=== PATIENT | female | born 1995 | race Caucasian/White ===

== ENCOUNTER 2024-04-03 10:28 | Emergency (ER) | payer OTHER, SELFPAY ==
[2024-04-03 10:32] VITALS: BP 164/92; PULSE 80; TEMP 37.1; O2SAT 97
--- NOTE | 2024-04-03 10:49 | CT_ITS ---
The [address] [address] Patient Name: SUSSY CRANE MRN: [id number] date: 1995 Sex: F Assigned Patient Location: ED.MAIN Current Patient Location: ED.MAIN Accession/Order Number: [id number] Exam Date: 04/03/2024 10:56 Report Date: 04/03/2024 11:27 At the request of: ZANIA CORONA Procedure: CT int auditory canals w/o con EXAM: CT int auditory canals w/o con HISTORY: L mastoid pain COMPARISON: None. TECHNIQUE: Axial noncontrast CT imaging of the temporal bones was performed with coronal reformats. This CT exam was performed using one or more of the following dose reduction techniques: Automated exposure control, adjustment of the MA and/or kV according to patient size, or use of iterative reconstruction technique. FINDINGS: RIGHT SIDE External auditory canal is clear. Mastoid air cells are normally aerated. Tympanic membrane has normal appearance. Middle ear cavity is normally aerated. Ossicles appear normal. No bony erosion. Internal auditory canal, cochlea, vestibule, semicircular canals, vestibular and cochlear aqueducts appear normal. Normal appearance of the petrous course of the facial nerve. No evidence of aberrant carotid or jugular dehiscence. LEFT SIDE Narrowing of the left external auditory canal greater involving the osseous external auditory canal and greater superiorly secondary to soft tissue thickening. Mild thickening and retraction of the tympanic membrane. Partial opacification of the mesotympanum and Prussak space without ossicular erosive change or blunting of the scutum. Mastoid air cells are normally aerated. Internal auditory canal, cochlea, vestibule, semicircular canals, vestibular and cochlear aqueducts appear normal. Normal appearance of the petrous course of the facial nerve. No evidence of aberrant carotid or jugular dehiscence. Additional comments: Visualized portion of the intracranial structures are unremarkable. CT/CT int auditory canals w/o con IMPRESSION: 1. Findings concerning for sequela of otitis externa with mild thickening and retraction of the tympanic membrane and partial opacification of the mesotympanum and Prussak space without obvious erosive change to suggest definite cholesteatoma. No evidence for mastoiditis. 2. Unremarkable CT appearance of the right temporal bone. Electronically authenticated by: LARRY YANES Date: 04/03/2024 11:27
--- NOTE | 2024-04-03 10:52 | ED_ITS ---
HPI HPI - General Adult General Chief complaint: Ear Stated complaint: EAR INFECTION AND LOCK JAW Time Seen by Provider: 04/03/24 10:32 Source: patient Mode of arrival: walk-in Limitations: no limitations History of Present Illness HPI narrative: Patient presents to ED complaining of ear pain. She reports left ear pain has been there about a week. She went to an urgent care and she was started on Augmentin on Monday. She states her ear has been getting worse and not better. She now has pain into the jaw and behind the ear as well as up into the temporal bone. She does have a history of fibromyalgia. She states she went to [place] over the weekend but did not notice any acute ear pain then. No recent history of swimming. No nausea vomiting no fevers. She does report that she has some pain with clenching the jaw and opening the jaw. No other complaints at this time Related Data Previous Rx's ?Medication ?Instructions ?Recorded ciprofloxacin 0.3 %-dexamethasone 4 drp otic (ear) BID 7 days #7.5 mL 04/03/24 0.1 % ear drops,suspension Allergies Allergy/AdvReac Type Severity Reaction Status Date / Time No Known Drug Allergies Allergy Verified 04/03/24 10:36 Opioid HPI Opioid Management Most Recent Opioid Data: Last Pain Scale 8 04/03/24 11:50 04/03/24 Last MAR Pain Assessment 04/03/24 11:50 Review of Systems ROS Status of ROS 10 or more systems reviewed and unremark able except as noted in history and below PFSH PFSH Surgical History (Updated 04/03/24 @ 10:38 by Chaz Abad) History of shoulder surgery ?Z98.890 - Other specified postprocedural states (ICD-10) Hx of cholecystectomy ?Z90.49 - Acquired absence of other specified parts of digestive tract (ICD- 10) Hx of hysterectomy ?Z90.710 - Acquired absence of both cervix and uterus (ICD-10) Social History Little interest or pleasure in doing things: not at all Feeling down, depressed, or hopeless: not at all Exam Narrative Exam Narrative: General: alert, no acute distress Cardiovascular: regular rate and rhythm, normal peripheral perfusion. Respiratory: Lungs CTA, respirations non labored. Extremities: no deformity, no trauma. Neurological: oriented x 4, LOC appropriate for age. Tenderness to palpation in the mastoid on the left as well as in the temporal bone and tenderness with movement of the pinna. Mild swelling of the canal and mild erythema of the left TM. No trismus Constitutional Vital Signs, click to edit/add: Last Vital Signs Temp 98.7 F 04/03/24 10:32 Pulse 80 04/03/24 10:32 Resp 16 04/03/24 10:32 BP 164/92 H 04/03/24 10:32 Pulse Ox 97 04/03/24 10:32 Course Vital Signs Vital signs: Vital Signs Temperature 98.7 F 04/03/24 10:32 Pulse Rate 80 04/03/24 10:32 Respiratory Rate 16 04/03/24 10:32 Blood Pressure 164/92 H 04/03/24 10:32 Pulse Oximetry 97 04/03/24 10:32 Temperature 98.7 F 04/03/24 10:32 Pulse Rate 80 04/03/24 10:32 Respiratory Rate 16 04/03/24 10:32 Blood Pressure 164/92 H 04/03/24 10:32 Pulse Oximetry 97 04/03/24 10:[address] [facility] Narrative Medical decision making narrative: Patient CT scan does not show acute mastoiditis. It is indicative of otitis externa. I will place the patient on Ciprodex antibiotic drops with steroids and it which should help the swelling and infection. Please return to ED if worsening symptoms continue the Augmentin otherwise follow-up with family doctor. Patient is comfortable care plan for home. Differential Diagnosis Differential Diagnosis: Otitis externa otitis media mastoiditis Imaging Data CT scan - head: Radiologist's impression: ITS Impressions Internal Auditory Canal CT 04/03/24 10:49 IMPRESSION: 1. Findings concerning for sequela of otitis externa with mild thickening and retraction of the tympanic membrane and partial opacification of the mesotympanum and Prussak space without obvious erosive change to suggest definite cholesteatoma. No evidence for mastoiditis. 2. Unremarkable CT appearance of the right temporal bone. Electronically authenticated by: LARRY YANES Date: 04/03/2024 11:27 Discharge Plan Discharge Chief Complaint: Ear Clinical Impression: Otitis externa Patient Disposition: Home, Self-Care Time of Disposition Decision: 11:45 Condition: Good Mode of Transportation: Private Vehicle Prescriptions / Home Meds: New ciprofloxacin-dexamethasone 0.3-0.1 % drops,suspension 4 drp otic (ear) BID 7 Days Qty: 7.5 0RF Rx Instructions: Please call Dr. Camejo at [place] [facility] if this is too expensive to find alte rnative. thanks! Print Language: Azerbaijani Instructions: [facility] (ED) Referrals: Physician,Non-Staff, MD [Primary Care Provider] - 1 week Discharge Date/Time: 04/03/24 11:57
[2024-04-03] MEDS: HYDROCODONE/ACET 5-325 MG TABLET 1 TAB PO (11:50)
== END 2024-04-03 11:57 | disposition home or self-care (01) ==
PROVIDERS: Emergency Provider Emergency Medicine
DX: H60.92 Unspecified otitis externa, left ear (principal)
CPT/HCPCS: 70480; 99284

== ENCOUNTER 2024-05-14 08:42 | Emergency (ER) | payer OTHER, SELFPAY ==
[2024-05-14 08:47] VITALS: BP 141/83; PULSE 78; TEMP 36.8; O2SAT 98
--- NOTE | 2024-05-14 09:00 | ED_ITS ---
HPI HPI - General Adult General Chief complaint: Ear Stated complaint: EAR ISSUE Time Seen by Provider: 05/14/24 08:48 Source: patient Mode of arrival: walk-in Limitations: no limitations History of Present Illness HPI narrative: 29-year-old female presents for pressure in her ears and the feeling that her lymph nodes are enlarged. She states she is getting over a cold. She had nasal congestion but that is improved. No ear drainage and she does not complain of a sore throat or fever or cough. Related Data Home Medications ?Medication ?Instructions ?Recorded ?Confirmed no home meds 05/14/24 Previous Rx's ?Medication ?Instructions ?Recorded ciprofloxacin 0.3 %-dexamethasone 4 drp otic (ear) BID 7 days #7.5 mL 04/03/24 0.1 % ear drops,suspension cetirizine 5 mg-pseudoephedrine ER 1 tab PO BID #14 tabs 05/14/24 120 mg tablet,extended release,12hr (Zyrtec-D) ibuprofen 800 mg tablet 800 mg PO Q8H PRN pain #20 tabs 05/14/24 Allergies Allergy/AdvReac Type Severity Reaction Status Date / Time No Known Drug Allergies Allergy Verified 05/14/24 08:52 Opioid HPI Opioid Management Most Recent Opioid Data: Last Pain Scale 8 04/03/24 11:50 04/03/24 Review of Systems ROS Narrative A ten point review of systems is negative except as noted above. PFSH PFSH Surgical History (Updated 04/03/24 @ 10:38 by Chaz Abad) History of shoulder surgery ?Z98.890 - Other specified postprocedural states (ICD-10) Hx of cholecystectomy ?Z90.49 - Acquired absence of other specified parts of digestive tract (ICD- 10) Hx of hysterectomy ?Z90.710 - Acquired absence of both cervix and uterus (ICD-10) Social History Little interest or pleasure in doing things: not at all Feeling down, depressed, or hopeless: not at all Exam Narrative Exam Narrative: Nurses note and vital signs reviewed and patient is not hypoxic. General: The patient appears well and in no apparent distress. Patient is resting comfortably on cart. Skin: Warm, dry, no pallor noted. There is no rash noted. Head: Normocephalic, atraumatic Eye: Normal conjunctiva, no drainage Ears, Nose, Mouth, and Throat: oral mucosa is moist. Nares patent. No pharyngea l erythema or exudate or swelling. Both TMs and both external canals are normal. I do not appreciate any enlarged lymph nodes in the cervical region. Cardiovascular: Regular Rate and Rhythm Respiratory: Patient is in no distress, no accessory muscle use, lungs are clear to auscultation, no wheezing, rales or rhonchi Back: non-tender GI: Soft and nontender Musculoskeletal: The patient has no evidence of calf tenderness, no pitting edema, symmetrical pulses noted bilaterally Neurological: A&O, normal speech Psychiatric: Cooperative Constitutional Vital Signs, click to edit/add: Last Vital Signs Temp 98.3 F 05/14/24 08:47 Pulse 78 05/14/24 08:47 Resp 18 05/14/24 08:47 BP 141/83 05/14/24 08:47 Pulse Ox 98 05/14/24 08:47 O2 Del Method Room Air 05/14/24 08:47 Course Vital Signs Vital signs: Vital Signs Temperature 98.3 F 05/14/24 08:47 Pulse Rate 78 05/14/24 08:47 Respiratory Rate 18 05/14/24 08:47 Blood Pressure 141/83 05/14/24 08:47 Pulse Oximetry 98 05/14/24 08:47 Oxygen Delivery Method Room Air 05/14/24 08:47 Temperature 98.3 F 05/14/24 08:47 Pulse Rate 78 05/14/24 08:47 Respiratory Rate 18 05/14/24 08:47 Blood Pressure 141/83 05/14/24 08:47 Pulse Oximetry 98 05/14/24 08:47 Oxygen Delivery Method Room Air 05/14/24 08:47 Discharge Plan Discharge Chief Complaint: Ear Clinical Impression: Viral URI Patient Disposition: Home, Self-Care Time of Disposition Decision: 08:59 Condition: Good Mode of Transportation: Private Vehicle Prescriptions / Home Meds: New ibuprofen 800 mg tablet 800 mg PO Q8H PRN (Reason: pain) Qty: 20 0RF cetirizine-pseudoephedrine [Zyrtec-D] 5-120 mg tablet extended release 12 hr 1 tab PO BID Qty: 14 0RF No Action no home meds ciprofloxacin-dexamethasone 0.3-0.1 % drops,suspension 4 drp otic (ear) BID 7 Days Qty: 7.5 0RF Rx Instructions: Please call Dr. Camejo at [place] [facility] if this is too expensive to find alternative. thanks! Print Language: Panamanian Instructions: Upper Respiratory Infection (ED), Viral Syndrome (ED) Referrals: Physician,Non-Staff, MD [Primary Care Provider] - 1 week
== END 2024-05-14 09:12 | disposition home or self-care (01) ==
PROVIDERS: Emergency Provider Emergency Medicine
DX: J06.9 Acute upper respiratory infection, unspecified (principal); Z90.49 Acquired absence of other specified parts of digestive tract; Z90.710 Acquired absence of both cervix and uterus
CPT/HCPCS: 99283

== ENCOUNTER 2024-06-21 06:01 | Emergency (ER) | payer OTHER, SELFPAY ==
[2024-06-21 06:09] VITALS: BP 125/68; PULSE 64; TEMP 37; O2SAT 97; BMI 29.1
--- OUTSIDE RECORDS SUMMARY | 2024-06-21 06:11 | XMS_ITS | CCD ---
Author Organization [facility] Care Team Providers Care Spray Maker Name Role Phone Nikko Najera Antonia Unavailable Unavailable Williams Quijano Unavailable Unavailable Williams Quijano Unavailable Unavailable UNKNOWN, PROVIDER Attending Unavailable CRAFT, EDWARD Primary Care Unavailable CRAFT, EDWARD Admitting Unavailable DERIANFT, BRYCE Attending Unavailable CRAFT, EDWARD Primary Care Unavailable RADU REED Admitting Unavailable RADU REED Attending Unavailable CRAFT, EDWARD Primary Care Unavailable CRAFT, EDWARD Attending Unavailable CRAFT, EDWARD Primary Care Unavailable RADU FISHER Admitting Unavailable PEDRONOTRADU SOTO Attending Unavailable CRAFT, EDWARD Primary Care Unavailable RADU FISHER Admitting Unavailable PEDRONOTTIRADU Attending Unavailable CRAFT, EDWARD Primary Care Unavailable CIARRA SILVERMAN Admitting Unavailable CIARRA SILVERMAN Attending Unavailable CRAFT, EDWARD Primary Care Unavailable PEDRONOTRADU SOTO Attending Unavailable CRAFT, EDWARD Primary Care Unavailable RADU FISHER Admitting Unavailable PEDRONOTRADU SOTO Attending Unavailable CRAFT, EDWARD Primary Care Unavailable Shira Ward Unavailable Unavailable Myesha Mendez Unavailable Unavailable Dorothea Phoenix Unavailable Unavailable Siscu Olya A Unavailable Unavailable Craft, Edward Unavailable Unavailable Nathaly Chavarria Unavailable Unavailable Hakeem Schumacher Unavailable Unavailable Evonne Louie Unavailable Unavailable [facility] [id number], [facility] Unavailable Unavailable Craft, Edward A Primary Care Provider [phone] Radu Fisher Unavailable Unavailable Evonne Louie Unavailable Unavailable Nathaly Chavarria Unavailable Unavaila ble No, Physician Primary Care Provider UnavailCarlito Freeman Primary Care Provider Craft, Edward A Primary Care Provider No, Physician Primary Care Provider UnavailRadu Brandon Unavailable Unavailable Carlito Martin MD Primary Care Provider NO, PHYSICIAN Primary Care Unavailable FILM CASTING OPERATORMOE DAVISNAMARIE Attending Unavailable ALEXISCARLITOD Primary Care Unavailabl e FILM CASTING OPERATOR, DONANAARIE Attending Unavailable ALEXIS CARLITO MOD Primary Care Unavailabl e FILM CASTING OPERATOR, WHITARIE Attending Unavailable FILM CASTING OPERATOR, WHITARIE Attending Unavailable ALEXIS CARLITO DOVE Primary Care UnavailCarlito Freeman MD Primary Care Provider Crapatricia, Edward A Unavailable Unavailable Unavailable No, Physician Primary Care Provider Unavailsalma Wise, Edward Unavailable Leti Angela Unavailable Unavailable Radu Fisher Unavailable Rahul Hirsch Unavailable Unavailable VINCE RIOS Attending Unavailable NO, PHYSICIAN Primary Care Unavailable NO, PHYSICIAN Primary Care Unavailable RADU DESOUZA Admitting Unavailab RADU [place] Attending Unavailab Reynaldo Mercado Unavailable Unavailable Unavailable Edgar Bradford Unavailable Unavailable HERRERA MCNEAL Attending Unavail able DERIANFT, EDWARD JERRY Primary Care Unavailable Radu Fisher MD Unavailable Unavailable Shira Ward MD Unavailable Unavailable Myesha Mendez MD Unavailable Unavailable Evonne Chávez Unavailable Unavail able Sistrinity Olya Noah Unavailable Unavailable Craft DO, Edward Unavailable Unavailable Nathaly Chavarria Unavailable Unavaila ble Craft DO, Edward Primary Care Provider [phone] Craft DO, Edward A Primary Care Provider Craft DO, Edward A Primary Care Provider CRAFT, EDWARD A Primary Care Unavailable BECKA REYNAGA Attending Unavailable Craft DO, Edward Primary Care Provider [phone] Unavailable Primary Care Provider UnavailDONNA Lancaster Attending Unavailable CRAFT, BRYCE EDWARDS Primary Care Unavailable Unavailable Primary Care Provider Unavailsalma WISE, EDWARD Primary Care Unavailable Kali Meraz Unavailable RAHUL MCCALLUM Referring Unavailable RAHUL MCCALLUM Referring Unavailable Craft DO, Edward A Primary Care Provider ESTHER VILLANUEVA Attending Unavailable CRAFT, EDWARD A Primary Care Unavailable SHAINA SALCEDO Attending Unavailable CRAFT, EDWARD A Primary Care Unavailable CRAFT, EDWARD A Primary Care Unavailable CRAFT, EDWARD A Primary Care Unavailable CRAFT, EDWARD Primary Care Unavailable CRAFT, EDWARD Primary Care Unavailable ZUNIGA, EDROY L Attending Unavailable ZUNIGA, EDROY L Referring Unavailable CRAFT, EDWARD Primary Care Unavailable ZUNIGA, EDROY L Admitting Unavailable ZUNIGA, EDROY L Attending Unavailable ZUNIGA, EDROY L Referring Unavailable Gavlak, Nicolas Eze Bryce Attending Unavai lable Gavlak, Mr. Moeald Bryce Referring Unavai lable Craft II, Dr. Bryce Edwards Primary Care Unav ailable Michael Nguyen Attending Unavailable Michael Nguyen Referring Unavailable Craft II, Dr. Bryce Edwards Primary Care Unav ailable Gavlak, Mr. Eze Wu Attending Unavai lable Craft II, Dr. Bryce Edwards Primary Care Unav ailable Zafuad, Dr. Radu Whittaker Attending Unav ailable Craft II, Dr. Bryce Edwards Primary Care Unav ailable Ahmet Medina Attending Unavailable Craft II, Dr. Bryce Edwards Primary Care Unav ailable Zafuad, Dr. Radu Whittaker Attending Unav ailable Craft II, Dr. Bryce Edwards Primary Care Unav ailable Craft II, Dr. Bryce Edwards Primary Care Unav ailable Kali Meraz Attending Unavailable GALINA PENALOZA Attending Unavailable CRAFT, BRYCE EDWARDS Primary Care Unavailable CRAFT, BRYCE EDWARDS Primary Care Unavailable SB CASAS Attending Unavailable Suleiman, Dr. Ronak Collins Referring Unava ilable Bearden, Dr. Ronak Collins Attending Unava ilable Craft II, Dr. Bryce Edwards Primary Care Unav ailable Craft II, Dr. Bryce Edwards Referring Unav ailable Craft II, Dr. Bryce Edwards Attending Unav ailable Craft II, Dr. Bryce Edwards Primary Care Unav ailable Craft II, Dr. Bryce Edwards Attending Unav ailable Craft II, Dr. Bryce Edwards Primary Care Unav ailable Craft II, Dr. Bryce Edwards Referring Unav ailable Craft II, Dr. Bryce Edwards Referring Unav ailable Craft II, Dr. Bryce Edwards Attending Unav ailable Craft II, Dr. Bryce Edwards Primary Care Unav ailable Sherlock, Dr. Meño Moreno Attending Lynnette vailable Craft II, Dr. Bryce Edwards Primary Care Unav ailable Craft DO, Edward A Primary Care Provider Craft DO, Edward A Unavailable [phone] RADU FISHER Attending Unavailable CRAFT, EDWARD A Primary Care Unavailable RADU FISHER Referring Unavailable CRAFT, EDWARD A Primary Care Unavailable RADU FISHER Referring Unavailable CRAFT, EDWARD A Primary Care Unavailable RADU FISHER Attending Unavailable CRAFT, EDWARD A Primary Care Unavailable Craft II, DO, Bryce Edwards Primary Care Provide r Craft II, DO, Bryce Edwards Primary Care Provide r CRAFT, EDWARD Primary Care Unavailable DO Rickie Connelly Attending Unavailable CRAFT II, DR. BRYCE EDWARDS Primary Care Physici an ALMA CAVANAUGH Attending Unavailable CRAFT II, EDJUDITH JERRY Primary Care Unavaila ble CRAFT II, BRYCE EDWARDS Primary Care Unavaila ble SENA, DANIEL D Referring Unavailable CRAFT II, BRYCE EDWRADS Primary Care Unavaila ble SENA, DANIEL D Referring Unavailable CRAFT II, EDJUDITH EDWARDS Primary Care Unavaila ble SENA, DANIEL D Referring Unavailable SENA, DANIEL D Attending Unavailable CRAFT II, EDJUDITH EDWARDS Primary Care Unavaila ble SENA, DANIEL D Referring Unavailable ALMA CAVANAUGH Attending Unavailable CATHY MORAN Attending Unavailable Unavailable Primary Care Provider UnavailSURYA Sanchez Attending Unavailable BRYCE WISE A Primary Care Unavailable MEÑO RETANA Attending Unavailable BRYCE WISE A Primary Care Unavailable SHASHI FLETCHER Attending Unavailable DERIANBRYCE GOMEZ A Primary Care Unavailable SHASHI FLETCHER Referring Unavailable BRYCE WISE A Primary Care Unavailable FRANDY, BRYCE Primary Care Unavailable DO Rickie Connelly Attending Unavailable BRYCE WISE Primary Care Unavailable MELONY DESIR Attending Unavailable Allergies Allergy Classification Reported Allergen(s) Allergy Type Date of Onset Reaction(s) Facility [place] (5 sources) [place]; Translations: [COBALT] Drug Allergy 7 [facility] nickel (5 sources) nickel; Translations: [NICKEL] Drug Allergy 7 [facility] (20 sources) [place]; Translations: [COBALT] Drug Allergy 7 [place] (20 sources) nickel sulfate; Translations: [NICKEL] Drug Allergy 7 [place] (20 sources) [place] Drug Allergy 7 Rash [facility] (20 sources) nickel Drug Allergy 7 Rash [facility] (20 sources) Morphine; Translations: [morphine] Drug Allergy 2 Itching, Rash [facility] Work Phone: (4 sources) Amoxicillin / Clavulanate; Translations: [AMOXICILLIN-POT CLAVULANATE] Drug Allergy 4 Nausea/vomiting [facility] Medications Current Medications Medication Drug Class(es) Dates Sig (Normalized) Sig (Original) acetaminophen 325 mg / HYDROcodone bitartrate 5 mg oral tablet (1 source) Opioid Agonist Start: 08-12-2022 End: 08-19-2022 take 1 tablet by mouth every four hours as needed for pain hydroCODone-aceta minophen 5-325 MG tablet Indications: Acute post-operative pain Take 1 tablet by mouth every 4 hours as needed for Moderate Pain for up to 7 days. 28 tablet 0 08/12/2022 08/19/2022 Active amoxicillin 875 mg / clavulanate 125 mg oral tablet (1 source) Penicillin-class Antibacterial Start: 03-31-2024 take 1 tablet by mouth every twelve hours Amoxicillin-Pot Clavulanate Active 1 TAB PO Every 12 hours 17 03March 30, 2024 11:00pm betamethasone 0.5 mg/ml / clotrimazole 10 mg/ml topical cream (20 sources) Azole Antifungal, Corticosteroid Start: 03-01-2024 End: 04-30-2024 clotrimazole-beta methasone (Lotrisone) cream Indications: Intrinsic eczema Apply 1 Application topically 2 times a day. 45 g 1 03/01/2024 04/30/2024 Active Start: 07-12-2021 End: 01-16-2023 Clotrimazole-Betamethasone 1 -0.05 % External Cream APPLY AND RUB IN A THIN FILM TO AFFECTED AREAS TWICE DAILY.(AM AND PM). Quantity: 1 Refills: 2 Ordered: 12-Jul-2021 Bryce Wise DO Start : 12-Jul-2021 End : 16-Jan-2023 Complete Start: 08-17-2020 Clotrimazole-B etamethasone 1-0.05 % External Cream APPLY AND RUB IN A THIN FILM TO AFFECTED AREAS TWICE DAILY(IN THE MORNING AND EVENING) Quantity: 45 Refills: 0 Ordered: 17-Aug-2020 DO Start : 17-Aug-2020 Active clobetasol propionate 0.5 mg/ml topical cream (20 sources) Corticosteroid Start: 07-20-2023 clobetasol (TE MOVATE) 0.05 % cream Apply to affected area two times a day. 0 07/20/2023 Active Start: 04-19-2023 End: 05-19-2023 clobetasol (Temovate) 0.05 % cream Indications: Intrinsic eczema Apply topically 2 times a day. 180 g 3 04/19/2023 05/19/2023 Active Start: 04-07-2021 Clobetasol Pro pionate 0.05 % External Ointment APPLY AND GENTLY MASSAGE INTO AFFECTED AREA(S) TWICE DAILY. Quantity: 1 Refills: 0 Ordered: 07-Apr-2021 Bryce Wise DO Start : 07-Apr-2021 Active Start: 09-09-2016 Clobetasol Pro pionate 0.05 % External Ointment Quantity: 60 Refills: 0 DO Start : 09-Sep-2016 Active Comment on above: Apply to affected ar ea two times a day. cyclobenzaprine hydrochloride 5 mg oral tablet (10 sources) Muscle Relaxant Start: 07-05-19 End: 08-04-19 take 1 tablet by mouth every twenty-four hours as needed cyclobenzaprine (Flexeril) 5 mg tablet Take 1 tablet (5 mg) by mouth once daily as needed. 0 07/05/2023 08/04/2023 Active Start: 11-13-2021 End: 11-28-2021 take 1 tablet by mouth three times daily as needed for muscle spasms cyclobenzaprine (FLEXERIL) 10 MG tablet Take 1 tablet by mouth 3 times daily as needed for Muscle spasms 15 tablet 0 11/13/2021 11/28/2021 Active Start: 05-12-2021 take 1 tablet by eric three times daily as needed Cyclobenzaprine HCl - 10 MG Oral Tablet TAKE 1 TABLET 3 TIMES DAILY NEEDED. Quantity: 30 Refills: 1 Ordered: 12-May-2021 Radu Fisher MD Start : 12-May-2021 Active dicyclomine hydrochloride 20 mg oral tablet (15 sources) Anticholinergic Start: 07-15-2022 End: 07-21-2022 take 1 tablet by mouth three times daily Bentyl 20 mg oral tablet ; 1 tab(s) orally 3 times a day, As Needed Quantity: 21 Refills: 0 Ordered: 14-Jul-2022 Kali Meraz Start: 14-Jul-2022 End: 20-Jul-2022 Generic Substitution Allowed Comments: May cause drowsiness. Alcohol may intensify this effect. Use care when operating dangerous machinery. Start: 08-03-2020 End: 08-12-2022 take 1 tablet by mouth every six hours for muscle spasms dicyclomine 20 MG tablet Take 1 tablet by mouth every 6 hours. For abdominal spasms 20 tablet 0 08/03/2020 08/12/2022 Discontinued (Stop Taking at Discharge) Start: 08-03-2020 Dicyclomine HC l - 20 MG Oral Tablet Quantity: 20 Refills: 0 Ordered: 04-Aug-2020 DO Start : 03-Aug-2020 Active take 1 capsule by mo [facility] four times daily before mealtime dicyclomine (BENTYL) 10 MG capsule Take 10 mg by mouth 4 (four) times a day before meals and nightly . 0 Active Comment on above: May cause drowsiness . Alcohol may intensify this effect. Use care when operating dangerous machinery. docusate sodium 100 mg oral capsule (8 sources) Start: End: take 1 capsule by mouth twice daily as needed for constipation Docusate 100 MG capsule Take 1 capsule by mouth 2 times daily as needed (constipation) for up to 15 days. 30 capsule 0 08/12/2022 08/27/2022 Active Start: 08-20-2020 Stool Softener 100 MG Oral Capsule Quantity: 60 Refills: 0 Ordered: 20-Aug-2020 DO Start : 20-Aug-2020 Active Start: 08-20-2020 End: 09-19-2020 take 1 capsule by mouth twice daily docusate sodium (COLACE) 100 MG capsule Take 1 (one) capsule (100 mg total) by mouth 2 (two) times a day . 60 capsule 0 08/20/2020 09/19/2020 Active Start: 08-02-2020 End: 08-02-2020 take 100 mg by mouth once daily 100 mg, Oral, Daily, F irst dose on 08/02/20 at 0900 Hold for loose stools DO NOT CRUSH OR CHEW. ergocalciferol 1.25 mg oral capsule (2 sources) Provitamin D2 Compound Start: 04-12-2023 End: 10-09-2023 take 1 capsule by mouth every week ergocalciferol (Vitamin D-2) 1.25 MG (30650 UT) capsule Indications: Vitamin D deficiency Take 1 capsule (50,000 Units) by mouth 1 (one) time per week. 13 capsule 1 04/12/2023 10/09/2023 Active famotidine 20 mg oral tablet (3 sources) Histamine-2 Receptor Antagonist Start: 10-27-2020 End: 11-26-2020 take 1 tablet by mouth twice daily famotidine (PEPCID) 20 MG tablet Take 1 (one) tablet (20 mg total) by mouth 2 (two) times a day . 60 tablet 0 10/27/2020 Active Start: 08-02-2020 End: 08-02-2020 20 mg, Intravenous, 2 times daily, First dose on 08/02/20 at 0015 [] Indication: Stress Ulcer Prophylaxis Aseptically dilute dose of famotidine injection with 0.9% NaCl to a total volume of either 5 ml or 10 ml and inject over 2 minutes. ferrous sulfate 325 mg oral tablet (6 sources) Start: 04-12-2023 End: 10-09-2023 take 1 tablet by mouth once daily at mealtime ferrous sulfate, 325 mg ferrous sulfate, (FerrouSuL) tablet Indications: Iron deficiency anemia secondary to inadequate dietary iron intake Take 1 tablet (325 mg) by mouth once daily with a meal. 90 tablet 1 04/12/2023 10/09/2023 Active Start: 08-29-2022 take 1 tablet by th once daily Iron Slow Release 142 (45 Fe) MG Oral Tablet Extended Release Take 1 tablet daily Quantity: 90 Refills: 0 Ordered: 29-Aug-2022 Ronak Bearden DO Start : 29-Aug-2022 Active Start: 07-05-2020 End: 08-04-2020 take 5 mL by mouth twice daily ferrous sulfate 300 mg (60 mg iron)/5 mL syrup Take 5 mL (300 mg total) by mouth 2 (two) times a day . 300 mL 3 07/05/2020 07/27/2020 Discontinued (Discontinued by another clinician) gabapentin 100 mg oral capsule (3 sources) Anti-epileptic Agent Start: 07-05-2022 take 1 capsule by mouth three times daily gabapentin (NEURONTIN) 100 MG capsule Take 1 capsule by mouth 3 times daily for 30 days. 90 capsule 0 07/05/2022 Active hydrOXYzine hydrochloride 25 mg oral tablet (5 sources) Antihistamine Start: 12-23-2020 take 1-2 tablets by mouth once daily hydrOXYzine hydrochloride 25 mg oral tablet ; 1 - 2 tab(s) orally once a day (at bedtime) Quantity: 20 Refills: 0 Ordered: 23-Dec-2020 Rahul Hirsch Start: 23-Dec-2020 Status: Other Generic Substitution Allowed Comments: May cause drowsiness. Alcohol may intensify this effect. Use care when operating dangerous machinery.Obtain medical advice before taking any non-prescription drugs as some may affect the action of this medication. Comment on above: May cause drowsiness . Alcohol may intensify this effect. Use care when operating dangerous machinery.Obtain medical advice before taking any non-prescription drugs as some may affect the action of this medication. ibuprofen 800 mg oral tablet (7 sources) Nonsteroidal Anti-inflammatory Drug Start: 08-12-2022 take 1 tablet by mouth every eight hours as needed ibuprofen 800 MG tablet Take 1 tablet by mouth every 8 hours as needed for Mild Pain or Moderate Pain. 30 tablet 1 08/12/2022 Active Start: 09-23-2020 End: 09-23-2021 take 1 tablet by mouth every eight hours as needed for pain ibuprofen (ADVIL,MOTRIN) 800 MG tablet Indications: Postoperative pain Take 1 (one) tablet (800 mg total) by mouth every 8 (eight) hours as needed for pain . 30 tablet 2 09/23/2020 09/23/2021 Active Start: 08-20-2020 End: 09-19-2020 take 1 tablet by mouth every six hours as needed ibuprofen (ADVIL,MOTRIN) 800 MG tablet Take 1 (one) tablet (800 mg total) by mouth every 6 (six) hours as needed for pain . 30 tablet 1 08/20/2020 09/19/2020 Active Start: 08-02-2020 End: 08-12-2020 take 1 tablet by mouth three times daily as needed for pain ibuprofen (ADVIL,MOTRIN) 200 MG tablet Take 1 (one) tablet (200 mg total) by mouth 3 (three) times a day as needed for pain (Take with meals.) . 30 tablet 0 08/02/2020 08/12/2020 Active 24 hr mirabegron 25 mg extended release oral tablet (3 sources) beta3-Adrenergic Agonist Start: 11-06-2023 take 1 tablet by mouth once daily mirabegron (Mybetriq) 25 mg tablet extended release 24 hr 24 hr tablet Indications: OAB (overactive bladder) Take 1 tablet (25 mg) by mouth once daily. 90 tablet 2 11/06/2023 Active naproxen 500 mg oral tablet (20 sources) Nonsteroidal Anti-inflammatory Drug Start: 04-24-2024 End: 12-20-2024 take 1 tablet by mouth twice daily as needed for pain naproxen (Naprosyn) 500 mg tablet Indications: Sciatica of left side , Chronic pain of left knee Take 1 tablet (500 mg) by mouth 2 times a day as needed for mild pain (1 - 3) (pain). 60 tablet 5 04/24/2024 12/20/2024 Active Start: 07-05-2022 End: 08-20-2022 take 1 tablet by mouth twice daily as needed for pain naproxen (NAPROSYN) 500 MG tablet Take 1 tablet by mouth 2 times daily as needed for Pain 10 tablet 0 07/05/2022 08/20/2022 Discontinued (LIST CLEANUP) Start: 01-13-2022 take 1 tablet by eric th twice daily as needed for pain naproxen (NAPROSYN) 500 MG tablet Take 1 tablet by mouth 2 times daily as needed for Pain 10 tablet 0 01/13/2022 Active Start: 11-13-2021 take 1 tablet by eric th twice daily at mealtime naproxen sodium (ANAPROX DS) 550 MG tablet Take 1 tablet by mouth 2 times daily (with meals) 20 tablet 0 11/13/2021 Active Start: 11-13-2021 Naproxen Sodiu m 550 MG Oral Tablet Quantity: 20 Refills: 0 Ordered: 13-Nov-2021 DO Start : 13-Nov-2021 Complete take 1 tablet by eric th every twelve hours as needed Naproxen SR (EC-NAPROSYN) 500 mg EC tablet Take 500 mg by mouth twice daily as needed (pain). 0 Active Comment on above: Take 500 mg by mouth twice daily as needed (pain). nitroglycerin 0.02 mg/mg topical ointment (17 sources) Nitrate Vasodilator Start: 06-28-2022 End: 11-06-2023 nitroglycerin (NITRO-BID) 2 % oint ointment Apply 1 g as directed twice daily. 30 g 3 06/28/2022 Active Start: 06-28-2022 End: 06-28-2022 nitroglycerin topical ointme nt 2% (NITRO-BID) Comment on above: Apply 1 g as directe d twice daily. omeprazole 20 mg delayed release oral capsule (15 sources) Proton Pump Inhibitor Start: 09-11-2020 take 1 capsule by mouth once daily omeprazole (PRILOSEC) 20 MG capsule Take 20 mg by mouth daily . 0 09/11/2020 Active End: 08-12-2022 take 1 capsule by mouth once daily omeprazole [address] Take 10 mg by mouth daily. 0 08/12/2022 Discontinued (Stop Taking at Discharge) simethicone 80 mg chewable tablet (1 source) Start: 08-12-2022 take 1 tablet by mouth every six hours as needed simethicone 80 MG Chew Tab chewable tablet Chew 1 tablet every 6 hours as needed for Gas or Flatulence. 20 tablet 0 08/12/2022 Active sodium fluoride 0.011 mg/mg toothpaste (5 sources) Start: 08-25-2020 SF 5000 Plus 1 .1 % Crea brush teeth EVERY NIGHT AT BEDTIME and spit do not rinse 0 08/25/2020 Active valACYclovir 1000 mg oral tablet (20 sources) Herpesvirus Nucleoside Analog DNA Polymerase Inhibitor, Herpes Simplex Virus Nucleoside Analog DNA Polymerase Inhibitor, Herpes Zoster Virus Nucleoside Analog DNA Polymerase Inhibitor Start: 08-30-2023 take 1 tablet by mouth once daily valACYclovir (Valtrex) 1 gram tablet Indications: Recurrent cold sores Take 1 tablet (1,000 mg) by mouth once daily. 90 tablet 1 08/30/2023 Active Start: 09-20-2016 valACYclovir ( Valtrex) 1 gram tablet Take by mouth every 12 hours if needed. 0 09/20/2016 Active Start: 09-20-2016 take 1 tablet by eric th once daily valACYclovir HCl - 1 GM Oral Tablet TAKE 1 TABLET EVERY 12 HOURS DAILY. Quantity: 14 Refills: 1 Ordered: 24-Oct-2017 Shira Ward MD Start : 20-Sep-2016 Active Start: 09-20-2016 End: 07-27-2020 take 1 tablet by mouth every twelve hours valACYclovir (VALTREX) 1000 MG tablet Take 1 Unspecified by mouth every 12 (twelve) hours . 0 09/20/2016 07/27/2020 Discontinued (Discontinued by another clinician) take 1 tablet by eric th twice daily as needed valACYclovir 1 g oral tablet ; 1 tab(s) orally 2 times a day, As Needed Quantity: 0 Refills: 0 Ordered: 28-Dec-2020 Neha Pugh Generic Substitution Allowed vitamin b12 1 mg oral tablet (2 sources) Vitamin B12 Start: 04-12-2023 End: 10-09-2023 take 1 tablet by mouth once daily cyanocobalamin (Vitamin B-12) 1,000 mcg tablet Indications: Vitamin B12 deficiency Take 1 tablet (1,000 mcg) by mouth once daily. 90 tablet 1 04/12/2023 10/09/2023 Active Completed/Discontinued Medications Medication Drug Class(es) Dates Sig (Normalized) Sig (Original) acetaminophen 325 mg oral tablet (10 sources) Start: 08-02-2020 Acetaminophen 325 MG Oral Tablet Quantity: 30 Refills: 0 Ordered: 02-Aug-2020 DO Start : 02-Aug-2020 Active Start: 08-02-2020 End: 08-12-2020 take 2 tablets by mouth every six hours acetaminophen (TYLENOL) 325 MG tablet Take 2 (two) tablets (650 mg total) by mouth every 6 (six) hours for 10 days . 30 tablet 0 08/02/2020 08/12/2020 Active Start: 08-02-2020 End: 08-02-2020 take 650 mg by mouth every six hours 650 mg, Oral, Every 6 hours scheduled, First dose on 08/02/20 at 0015 Do not exceed max of 4000 mg acetaminophen in 24 hours. Start: 07-05-2020 End: 08-02-2020 take 650 mg by mouth every six hours as needed acetaminophen (TYLENOL) 650 mg/20.3 mL Soln Take 20.3 mL (650 mg total) by mouth every 6 (six) hours as needed . 812 mL 0 07/05/2020 08/02/2020 Discontinued (Stop Taking at Discharge) acetaminophen 325 mg / oxyCODONE hydrochloride 5 mg oral tablet (12 sources) Opioid Agonist Start: 08-12-2022 End: 08-12-2022 take 1-2 tablets by mouth every four hours as needed oxyCODONE-acetaminophen (PERCOCET) 5-325 MG per tablet 1-2 tablet Start: 05-05-2021 take 1 tablet by eric th every six hours oxyCODONE-Acetaminophen 5-325 MG Oral Tablet TAKE 1 TABLET Every 6 hours Quantity: 28 Refills: 0 Ordered: 05-May-2021 Radu Fisher MD Start : 05-May-2021 Active Start: 08-20-2020 End: 08-24-2020 take 1 tablet by mouth every six hours as needed for pain, then take 4 tablets by mouth as needed for pain oxyCODONE-acetaminophen (PERCOCET) 5-325 mg per tablet Indications: Symptomatic cholelithiasis , Postoperative pain Take 1 (one) tablet by mouth every 6 (six) hours as needed for pain (Days supply per fill: 4) . 16 tablet 0 08/20/2020 08/24/2020 Active Start: 08-20-2020 End: 08-20-2020 oxyCODONE-acetaminophen (PER COCET) 5-325 mg per tablet 1 tablet amoxicillin 80 mg/ml oral suspension (10 sources) Penicillin-class Antibacterial Start: 05-20-2019 take 12.5 mL by mouth twice daily Amoxicillin 400 MG/5ML Oral Suspension Reconstituted TAKE 12.5 ML Twice daily Quantity: 5 Refills: 0 Ordered: 20-May-2019 Evonne Chávez Start : 20-May-2019 Active ARIPiprazole 2 mg oral tablet (17 sources) Atypical Antipsychotic Start: 02-26-2019 take 1 tablet by mouth once daily ARIPiprazole 2 MG Oral Tablet TAKE 1 TABLET DAILY. Quantity: 0 Refills: 0 Ordered: 26-Feb-2019 DO Start : 26-Feb-2019 Active azithromycin 500 mg oral tablet (4 sources) Macrolide Antimicrobial Start: 10-05-2020 Azithromycin 500 MG Oral Tablet Quantity: 2 Refills: 0 Ordered: 05-Oct-2020 DO Start : 05-Oct-2020 Active 5 ml bupivacaine hydrochloride 2.5 mg/ml injection (1 source) Amide Local Anesthetic Start: 08-12-2022 End: 08-12-2022 Bupivacaine (PF) (MARCAINE) 0.25 % injection busPIRone hydrochloride 7.5 mg oral tablet (6 sources) Start: 06-15-2021 take 1 tablet by mouth three times daily as needed for anxiety busPIRone HCl - 7.5 MG Oral Tablet TAKE 1 TABLET 3 times daily PRN anxiety Quantity: 30 Refills: 0 Ordered: 15-Jun-2021 Bryce Wise DO Start : 15-Jun-2021 Active calcium chloride 0.0014 meq/ml / potassium chloride 0.004 meq/ml / sodium chloride 0.103 meq/ml / sodium lactate 0.028 meq/ml injectable solution (4 sources) Start: 08-12-2022 End: 08-12-2022 Lactated ringers IV solution Start: 08-20-2020 End: 08-20-2020 take 100 mL intravenous route every hour 100 mL/hr, Intravenous, Continuous, Starting Nidhi 08/20/20 at 0930, PACU (only) Start: 08-20-2020 End: 08-20-2020 lactated Ringers infusion Start: 08-02-2020 End: 08-02-2020 take 125 mL intravenous route every hour 125 mL/hr, Intravenous, Continuous, Starting [place] 08/02/20 at 0015 cephalexin 50 mg/ml oral suspension (16 sources) Cephalosporin Antibacterial Start: 02-09-2024 End: 03-31-2024 take 500 mg by mouth three times daily Cephalexin Discontinued 500 MG PO Three times daily 210 February 08, 2024 11:00pm March 31, 2024 12:40pm Start: 08-03-2021 End: 08-10-2021 take 2 capsules by mouth every twelve hours cephALEXin 500 MG capsule Take 2 capsules by mouth every 12 hours for 7 days. 28 capsule 0 08/03/2021 08/10/2021 Active Start: 08-03-2021 End: 08-03-2021 take 1 dose by mouth once 1,000 mg, Oral, ONCE, 1 dose , On Mon08/03/21 at 0245 Start: 06-15-2021 take 1 tablet by eric four times daily Cephalexin 500 MG Oral Tablet TAKE 1 TABLET 4 TIMES DAILY Quantity: 28 Refills: 0 Ordered: 15-Jun-2021 Lester Figueroa MD Start : 15-Jun-2021 Active Start: 12-19-2020 End: 12-28-2020 take 1 capsule by mouth three times daily cephalexin 500 mg oral capsule ; 1 cap(s) orally 3 times a day Quantity: 30 Refills: 0 Ordered: 19-Dec-2020 Leti Angela Start: 19-Dec-2020 End: 28-Dec-2020 Status: Other Generic Substitution Allowed Comments: Finish all this medication unless otherwise directed by prescriber. Start: 04-27-2020 End: 05-07-2020 take 1 capsule by mouth twice daily cephALEXin (KEFLEX) 500 MG capsule Take 1 capsule by mouth 2 times daily for 10 days 20 capsule 0 04/27/2020 05/07/2020 Active Comment on above: Finish all this medi cation unless otherwise directed by prescriber. cholecalciferol 1.25 mg oral capsule (14 sources) Vitamin D Start: 3 take 1 capsule by mouth every week Vitamin D3 1.25 MG (11725 UT) Oral Capsule TAKE 1 CAPSULE BY MOUTH ONE TIME PER WEEK Quantity: 12 Refills: 1 Ordered: 29-Aug-2022 Ronak Bearden DO Start : 29-Aug-2022 Active Start: 06-28-2022 take 1 tablet by eric th once daily cholecalciferol (VITAMIN D) 1,000 unit tab tablet Take 1 tablet by mouth once daily. 30 tablet 3 06/28/2022 Active Comment on above: Take 1 tablet by eric th once daily. ciprofloxacin 500 mg oral tablet (4 sources) Quinolone Antimicrobial Start: 01-13-20 21 take 1 tablet by mouth twice daily Ciprofloxacin HCl - 500 MG Oral Tablet TAKE 1 TABLET TWICE DAILY Quantity: 14 Refills: 0 Ordered: 12-Jan-2021 DO Start : 12-Jan-2021 Active citalopram 20 mg oral tablet (20 sources) Serotonin Reuptake Inhibitor Start: 06-15-19 22 take 1 tablet by mouth once daily Citalopram Hydrobromide 20 MG Oral Tablet TAKE 1 TABLET DAILY. Quantity: 90 Refills: 1 Ordered: 15-Jun-2021 Bryce Wise DO Start : 15-Jun-2021 Active Start: 08-17-2020 take 1 tablet by eric th once daily citalopram (CELEXA) 20 MG tablet Take 20 mg by mouth daily . 0 08/17/2020 Active take 1 tablet by eric th once daily CeleXA 10 mg oral tablet ; 1 tab(s) orally once a day Quantity: 0 Refills: 0 Ordered: 28-Dec-2020 Neha Pugh Status: Other Generic Substitution Allowed clindamycin 15 mg/ml oral solution (4 sources) Lincosamide Antibacterial Start: 12-28-2020 Clindamycin Palmitat e HCl - 75 MG/5ML Oral Solution Reconstituted Quantity: 900 Refills: 0 Ordered: 28-Dec-2020 DO Start : 28-Dec-2020 Active diazePAM 5 mg oral tablet (20 sources) Benzodiazepine Start: 11-12-2020 diazePAM 5 MG Oral Tablet Quantity: 1 Refills: 0 Ordered: 12-Nov-2020 DO Start : 12-Nov-2020 Active Start: 08-08-2019 take 1 tablet by eric th every hour diazePAM 10 MG Oral Tablet TAKE 1 TABLET 1 HOUR PRIOR TO PROCEDURE. Quantity: 1 Refills: 0 Ordered: 08-Aug-2019 Radu Fisher MD Start : 08-Aug-2019 Active diclofenac sodium 75 mg delayed release oral tablet (4 sources) Nonsteroidal Anti-inflammatory Drug Start: 09-30-2020 Diclofenac Sodium 75 MG Oral Tablet Delayed Release Quantity: 30 Refills: 0 Ordered: 30-Sep-2020 DO Start : 30-Sep-2020 Active 1 ml diphenhydrAMINE hydrochloride 50 mg/ml cartridge (1 source) Histamine-1 Receptor Antagonist Start: 08-26-2022 End: 08-26-2022 diphenhydrAMINE (BENADRYL) injection 50 mg doxycycline monohydrate 100 mg oral capsule (13 sources) Tetracycline-class Drug Start: 04-07-2021 take 1 capsule by mouth once daily at mealtime Doxycycline Monohydrate 100 MG Oral Capsule TAKE 1 CAPSULE BY MOUTH EVERY DAY WITH FOOD Quantity: 90 Refills: 0 Ordered: 07-Apr-2021 Bryce Wise DO Start : 07-Apr-2021 Active take 1 tablet by mouth once joaquin y doxycycline monohydrate 100 mg oral tablet ; 1 tab(s) orally once a day Quantity: 0 Refills: 0 Ordered: 10-May-2021 Ann-Marie Alfaro Generic Substitution Allowed 0.4 ml enoxaparin sodium 100 mg/ml prefilled syringe (1 source) Low Molecular Weight Heparin Start: 08-02-2020 End: 08-02-2020 enoxaparin (LOVENOX) syringe 40 mg EPINEPHrine 0.01 mg/ml / lidocaine hydrochloride 10 mg/ml injectable solution (1 source) Antiarrhythmic, alpha-Adrenergic Agonist, beta-Adrenergic Agonist, Catecholamine, Amide Local Anesthetic Start: 08-12-2022 End: 08-12-2022 lidocaine-epinephr ine 1%-1:204404 injection 168 hr ethinyl estradiol 0.45245 mg/hr / norelgestromin 0.36835 mg/hr transdermal system (20 sources) Progestin, Estrogen Start: 10-04-2016 apply 1 dose transdermal route every week Xulane 150-35 MCG/24HR Transdermal Patch Weekly APPLY 1 PATCH WEEKLY DIRECTED. Quantity: 1 Refills: 3 Ordered: 04-Oct-2016 Myesha Mcneill MD Start : 04-Oct-2016 Active famotidine (PEPCID) 20 mg in sodium chloride (PF) 0.9 % 10 mL injection (1 source) Start: 08-26-2022 End: 08-26-2022 famotidine (PEPCID) 20 mg in sodium chloride (PF) 0.9 % 10 mL injection fluconazole 100 mg oral tablet (4 sources) Azole Antifungal Start: 02-10-2021 Fluconazole 100 MG Oral Tablet Quantity: 7 Refills: 0 Ordered: 13-Mar-2021 DO Start : 10-Feb-2021 Active fluocinonide 0.0005 mg/mg topical ointment (3 sources) Corticosteroid Start: 05-04-2017 End: 08-12-2022 fluocinonide 0.05 % ointment Indications: Allergic contact dermatitis due to metals Apply 1 Application topically 2 times daily. As needed for rash; avoid face, groin, underarms 60 g 3 05/04/2017 08/12/2022 Discontinued (Stop Taking at Discharge) fluticasone propionate 0.05 mg/actuat metered dose nasal spray (2 sources) Corticosteroid Start: 08-29-2022 End: 01-16-2023 take 2 spray(s) nasal route once daily Fluticasone Propionate 50 MCG/ACT Nasal Suspension USE 2 SPRAYS IN EACH NOSTRIL ONCE DAILY Quantity: 1 Refills: 1 Ordered: 29-Aug-2022 Ronak Bearden DO Start : 29-Aug-2022 End : 16-Jan-2023 Complete hydrocortisone 25 mg/ml topical cream (20 sources) Corticosteroid Start: 12-13-2018 Hydrocortisone 2.5 % CREA Quantity: 60 Refills: 0 Ordered: 13-Dec-2018 DO Start : 13-Dec-2018 Active Start: 12-13-2018 Hydrocortisone 2.5 % CREA Quantity: 60 Refills: 0 Start : 13-Dec-2018 Active 1 ml HYDROmorphone hydrochloride 1 mg/ml cartridge (4 sources) Opioid Agonist Start: 08-12-2022 End: 08-12-2022 HYDROmorphone (DILAUDID) injection 0.5 mg Start: 09-21-2020 End: 09-21-2020 HYDROmorphone (DILAUDID) inj ection 1 mg Start: 08-20-2020 End: 08-20-2020 0.5 mg, Intravenous, Every 5 min PRN, Pain, Starting Nidhi 08/20/20 at 0830, For 6 doses, PACU (only) [] Give if fentanyl not effective or not ordered. [] Do not give more than 3 mg total. Start: 08-01-2020 End: 08-01-2020 HYDROmorphone (DILAUDID) inj ection 1 mg iopamidol (ISOVUE-300) 61 % injection 50 mL (1 source) Start: 08-20-2022 End: 08-20-2022 iopamidol (ISOVUE-300) 61 % injection 50 mL ketoconazole 20 mg/ml medicated shampoo (17 sources) Azole Antifungal Start: 07-05-2023 End: 11-06-2023 ketoconazole (NIZOral) 2 % shampoo Use 3 times weekly for 2 weeks. 07/05/2023 11/06/2023 Discontinued (Med List Cleanup) Ketoconazole 2 % External Shampoo APPLY TO AFFECTED AREA(S) ONCE DAILY DIRECTED. Quantity: 0 Refills: 0 Ordered: 01-May-2021 DO Active ketorolac tromethamine 10 mg oral tablet (6 sources) Nonsteroidal Anti-inflammatory Drug, Cyclooxygenase Inhibitor Start: 12-16-2022 End: 01-16-2023 take 1 tablet by mouth three times daily as needed for pain Ketorolac Tromethamine 10 MG Oral Tablet TAKE 1 TABLET 3 TIMES DAILY NEEDED FOR PAIN. Quantity: 15 Refills: 0 Ordered: 16-Dec-2022 Bryce Wise DO Start : 16-Dec-2022 End : 16-Jan-2023 Complete Start: 08-20-2022 ketorolac (TOR ADOL) injection 15 mg Start: 08-20-2022 take 1 tablet by eric th every six hours as needed for pain ketorolac (TORADOL) 10 MG tablet Take 1 tablet by mouth every 6 hours as needed for Pain 20 tablet 0 08/20/2022 Active Start: 08-19-2020 End: 08-19-2020 ketorolac (TORADOL) injectio n 15 mg Start: 07-21-2020 End: 07-21-2020 ketorolac (TORADOL) injectio n 60 mg 4 ml labetalol hydrochloride 5 mg/ml cartridge (1 source) beta-Adrenergic Pau Start: 08-20-2020 End: 08-20-2020 5 mg, Intravenous, Every 5 min PRN, SBP greater than 180 or DBP greater than 120, Starting Nidhi 08/20/20 at 0830, For 4 doses, PACU (only) [] Do not give more than 20 mg total. [] Hold for HR less than 50. Maxine 24 FE 1-20 MG-MCG(24) Oral Tablet (1 source) Start: 12-01-2021 take 1 tablet by mouth once daily Maxine 24 FE 1-20 MG-MCG(24) Oral Tablet TAKE 1 TABLET BY MOUTH EVERY DAY Quantity: 84 Refills: 0 Ordered: 01-Dec-2021 DO Start : 01-Dec-2021 Complete levoFLOXacin 750 mg oral tablet (12 sources) Quinolone Antimicrobial Start: 08-25-2021 take 1 tablet by mouth once daily levoFLOXacin 750 MG Oral Tablet TAKE 1 TABLET DAILY. Quantity: 3 Refills: 0 Ordered: 25-Aug-2021 Bryce Wise DO Start : 25-Aug-2021 Active 10 ml lidocaine hydrochloride 10 mg/ml injection (15 sources) Antiarrhythmic, Amide Local Anesthetic Start: 08-08-2023 End: 08-08-2023 lidocaine (PF) 10 mg/mL (1 %) 8 mL injection (XYLOCAINE) Start: 11-15-2021 apply 1 dose transde rmal route once daily lidocaine (LIDODERM) 5 % Place 1 patch onto the skin daily 12 hours on, 12 hours off. 30 patch 0 08/20/2022 Active Medrol Dosepak 4 mg oral tablet (6 sources) Start: 12-19-2020 Medrol Dosepak 4 mg oral tablet ; 1 cap(s) orally Quantity: 1 Refills: 0 Ordered: 19-Dec-2020 Leti Angela Start: 19-Dec-2020 Status: Other Generic Substitution Allowed Comments: It is very important that you take or use this exactly as directed. Do not skip doses or discontinue unless directed by your doctor.Obtain medical advice before taking any non-prescription drugs as some may affect the action of this medication.Take with food or milk. Start: 12-19-2020 Medrol Dosepak 4 mg oral tablet ; 1 cap(s) orally Quantity: 1 Refills: 0 Ordered: 19-Dec-2020 Leti Angela Start: 19-Dec-2020 Generic Substitution Allowed Comments: It is very important that you take or use this exactly as directed. Do not skip doses or discontinue unless directed by your doctor.Obtain medical advice before taking any non-prescription drugs as some may affect the action of this medication.Take with food or milk. Comment on above: It is very important that you take or use this exactly as directed. Do not skip doses or discontinue unless directed by your doctor.Obtain medical advice before taking any non-prescription drugs as some may affect the action of this medication.Take with food or milk. meloxicam 15 mg oral tablet (20 sources) Nonsteroidal Anti-inflammatory Drug Start: 2 End: 2 take 1 tablet by mouth once daily at mealtime Meloxicam 15 MG Oral Tablet TAKE 1 TABLET BY MOUTH DAILY WITH FOOD Quantity: 1 Refills: 0 Ordered: 22-Nov-2021 Bryce Wise DO Start : 22-Nov-2021 End : 19-May-2022 Complete Start: 07-12-2021 take 1 tablet by eric th once daily at mealtime Meloxicam 15 MG Oral Tablet TAKE 1 TABLET BY MOUTH DAILY WITH FOOD Quantity: 1 Refills: 0 Ordered: 12-Jul-2021 Bryce Wise DO Start : 12-Jul-2021 Active Start: 06-23-2021 take 1 tablet by eric th once daily Meloxicam 15 MG Oral Tablet TAKE 1 TABLET BY MOUTH DAILY Quantity: 30 Refills: 0 Ordered: 23-Jun-2021 Radu Fisher MD Start : 23-Jun-2021 Active Meperidine (1 source) Opioid Agonist Start: 08-20-2020 End: 08-20-2020 12.5 mg, Intravenous, Every 5 min PRN, shivering, Starting Nidhi 08/20/20 at 0830, For 2 doses, PACU (only) Do not give more than 25 mg total. RESTRICTED to use in rigors OR pain management in patients with a documented opioid allergy. Please select this medication s indication. Rigors methocarbamol 500 mg oral tablet (4 sources) Muscle Relaxant Start: 12-16-2022 End: 01-16-2023 take 1 tablet by mouth three times daily as needed Methocarbamol 500 MG Oral Tablet TAKE 1 TABLET 3 times daily PRN Quantity: 90 Refills: 0 Ordered: 16-Dec-2022 Bryce Wise DO Start : 16-Dec-2022 End : 16-Jan-2023 Complete Start: 01-17-2022 End: 05-19-2022 Methocarbamol 750 MG Oral Ta blet take 1 or 2 tablets by mouth three times a day if needed Quantity: 90 Refills: 0 Ordered: 17-Jan-2022 Bryce Wise DO Start : 17-Jan-2022 End : 19-May-2022 Complete methylPREDNISolone 125 mg injection (12 sources) Corticosteroid Start: 08-26-2022 End: 08-26-2022 methylPREDNISolone sodium (SOLU-MEDROL) injection 125 mg Start: 11-22-2021 methylPREDNISo lone (MEDROL, ANA MARIA,) 4 MG tablet Indications: Trapezius muscle strain, left, subsequent encounter Take by mouth. 1 kit 0 11/22/2021 Active Start: 09-30-2021 methylPREDNISo lone 4 MG Oral Tablet take as directed on the instructiosn Quantity: 21 Refills: 0 Ordered: 30-Sep-2021 Radu Fisher MD Start : 30-Sep-2021 Active methylPREDNISolone 4 MG Oral Tablet Therapy Pack (7 sources) Start: 06-03-2021 methylPREDNISo lone 4 MG Oral Tablet Therapy Pack USE DIRECTED Quantity: 1 Refills: 0 Ordered: 03-Jun-2021 Angeles Maldonado MD Start : 03-Jun-2021 Active Start: 01-25-2021 methylPREDNISo lone 4 MG Oral Tablet Therapy Pack Quantity: 21 Refills: 0 Ordered: 26-Jan-2021 DO Start : 25-Jan-2021 Active metroNIDAZOLE 500 mg oral tablet (20 sources) Nitroimidazole Antimicrobial Start: 12-13-2018 metroNIDAZOLE 500 MG Oral Tablet Quantity: 14 Refills: 0 Ordered: 13-Dec-2018 DO Start : 13-Dec-2018 Active Start: 12-13-2018 metroNIDAZOLE 500 MG Oral Tablet Quantity: 14 Refills: 0 Start : 13-Dec-2018 Active 1 ml morphine sulfate 4 mg/ml cartridge (2 sources) Opioid Agonist Start: 10-27-2020 End: 10-27-2020 morphine syringe 4 mg Start: 08-19-2020 End: 08-19-2020 morphine (PF) injection 4 mg multivitamin capsule (3 sources) End: 08-02-2020 take 1 capsule by mouth once daily multivitamin capsule Indications: Flintstones Take 1 capsule by mouth daily Reasons: Flintstones. 0 08/02/2020 Discontinued (Stop Taking at Discharge) take 1 capsule by mouth once valencia ly multivitamin capsule Indications: Flintstones Take 1 capsule by mouth daily Reasons: Flintstones. 0 Active mupirocin 0.02 mg/mg topical ointment (1 source) RNA Synthetase Inhibitor Antibacterial Start: 02-09-2024 End: 03-31-2024 Mupirocin Discontinued 1 APPLIC TOPICAL Three times daily 19 03February 08, 2024 11:00pm March 31, 2024 12:40pm naloxone (NARCAN) injection 0.1 mg (2 sources) Start: 08-20-2020 End: 08-20-2020 naloxone (NARCAN) injection 0.1 mg Start: 08-01-2020 End: 08-02-2020 naloxone (NARCAN) injection 0.1 mg NIFEdipine (20 sources) Dihydropyridine Calcium Channel Pau Start: 01-04-2019 NIFEdipine Powder Quantity: 30 Refills: 0 Ordered: 04-Jan-2019 DO Start : 04-Jan-2019 Active Start: 01-04-2019 NIFEdipine Pow macey Quantity: 30 Refills: 0 Start : 04-Jan-2019 Active nitrofurantoin, macrocrystals 50 mg oral capsule (10 sources) Nitrofuran Antibacterial Start: 09-25-2021 take 1 capsule by mouth every twelve hours Nitrofurantoin Macrocrystal 50 MG Oral Capsule TAKE 1 CAPSULE Every twelve hours start the night before your procedure. Quantity: 4 Refills: 0 Ordered: 25-Sep-2021 Carlito Garcia MD Start : 25-Sep-2021 Active norethindrone acetate 5 mg oral tablet (1 source) Start: 08-17-2021 Norethindrone Acetate 5 MG Oral Tablet Quantity: 51 Refills: 0 Ordered: 17-Aug-2021 DO Start : 17-Aug-2021 Complete 2 ml ondansetron 2 mg/ml injection (19 sources) Serotonin-3 Receptor Antagonist Start: 08-20-2022 End: 08-20-2022 ondansetron (ZOFRAN) injection 4 mg Start: 08-12-2022 End: 08-16-2022 take 1 tablet by mouth every eight hours as needed Ondansetron 4 MG tablet Take 1 tablet by mouth every 8 hours as needed for Nausea for up to 4 days. 10 tablet 1 08/12/2022 08/16/2022 Active Start: 08-07-2021 Ondansetron HC l - 4 MG Oral Tablet Quantity: 12 Refills: 0 Ordered: 07-Aug-2021 DO Start : 07-Aug-2021 Complete Start: 10-27-2020 End: 10-27-2020 ondansetron (ZOFRAN) injecti on 4 mg Start: 09-21-2020 End: 09-21-2020 ondansetron (ZOFRAN) injecti on 4 mg Start: 08-20-2020 End: 08-20-2020 take 4 mg intravenous route every twenty-four hours as needed 4 mg, Intravenous, Once as needed, nausea, vomiting, Starting Nidhi 08/20/20 at 0830, For 1 dose, PACU (only) Administer first as needed for nausea/vomiting, or as directed by anesthesia Start: 08-19-2020 take 1 tablet by eric th three times daily as needed for nausea ondansetron (ZOFRAN-ODT) 4 MG disintegrating tablet Take 1 tablet by mouth 3 times daily as needed for Nausea or Vomiting 10 tablet 0 08/19/2020 Active Start: 08-19-2020 End: 08-19-2020 ondansetron (ZOFRAN) injecti on 4 mg Start: 08-03-2020 Ondansetron 4 MG Oral Tablet Disintegrating Quantity: 15 Refills: 0 Ordered: 04-Aug-2020 DO Start : 03-Aug-2020 Active Start: 08-01-2020 End: 08-01-2020 ondansetron (ZOFRAN) injecti on 4 mg Start: 01-27-2018 End: 08-12-2022 take 1 tablet by mouth every four hours as needed ondansetron 4 MG Tab Dispersible tablet Take 1 tablet by mouth every [address] on tongue 15 tablet 0 08/03/2020 08/12/2022 Discontinued (Stop Taking at Discharge) ondansetron (ZOFRAN-ODT) disintegrating tablet 4 mg (1 source) Start: 08-01-2020 End: 08-02-2020 take 1 tablet by mouth every six hours as needed ondansetron (ZOFRAN-ODT) disintegrating tablet 4 mg oxyCODONE hydrochloride 5 mg oral tablet (2 sources) Opioid Agonist Start: 05-10-2022 take 1 tablet by mouth every six hours as needed oxyCODONE HCl - 5 MG Oral Tablet TAKE 1 TABLET BY MOUTH EVERY 6 HOURS NEEDED Quantity: 15 Refills: 0 Ordered: 10-May-2022 DO Start : 10-May-2022 Complete Start: 08-01-2020 End: 08-02-2020 take 1 tablet by mouth every six hours as needed 5 mg, Oral, Every 6 hours PRN, moderate to severe pain, Starting 08/01/20 at 2319 pantoprazole 40 mg delayed release oral tablet (4 sources) Proton Pump Inhibitor Start: 02-26-2021 take 1 tablet by mouth once daily 30 minutes before breakfast Pantoprazole Sodium 40 MG Oral Tablet Delayed Release TAKE 1 TABLET BY MOUTH EVERY DAY 30 MINUTES BEFORE BREAKFAST Quantity: 30 Refills: 0 Ordered: 26-Feb-2021 DO Start : 26-Feb-2021 Active penicillin v potassium 50 mg/ml oral solution (4 sources) Start: 08-25-2020 take 10 mL by mouth every six hours Penicillin V Potassium 250 MG/5ML Oral Solution Reconstituted take 10 mLs BY MOUTH EVERY 6 HOURS UNTIL GONE Quantity: 400 Refills: 0 Ordered: 25-Aug-2020 DO Start : 25-Aug-2020 Active phenazopyridine hydrochloride 200 mg delayed release oral tablet (6 sources) Start: 01-27-2018 End: 08-12-2022 take 1 tablet by mouth three times daily as needed for pain phenazopyridine 200 MG Tab tablet Take 1 tablet by mouth 3 times daily as needed for Pain (Urinary pain). 6 tablet 0 01/27/2018 08/12/2022 Discontinued (Stop Taking at Discharge) Start: 01-27-2018 End: 08-02-2020 take 1 tablet by mouth three times daily as needed phenazopyridine (PYRIDIUM) 200 MG tablet Take 200 mg by mouth 3 (three) times a day as needed . 0 01/27/2018 08/02/2020 Discontinued (Stop Taking at Discharge) polyethylene glycol 3350 09128 mg powder for oral solution (4 sources) Osmotic Laxative Start: 08-03-2021 End: 08-12-2022 polyethylene glycol (MiraLax) 17 GM/SCOOP Powder powder 1 capful (17g) in 4-8 ounces of beverage PO QHS 527 g 0 08/03/2021 08/12/2022 Discontinued (Stop Taking at Discharge) Start: 08-03-2021 PEG 3350 17 GM /SCOOP Oral Powder Quantity: 510 Refills: 0 Ordered: 03-Aug-2021 DO Start : 03-Aug-2021 Complete predniSONE 20 mg oral tablet (18 sources) Start: 02-09-2024 End: 03-31-2024 take 2 tablets by mouth once daily, then take 1 tablet by mouth once daily Prednisone Discontinued 0 PO .COMPLEX 15 10 February 08, 2024 11:00pm March 31, 2024 12:40pm orally; Take 2 tabs po daily x 5 days, then take 1 tab po daily x 5 days Start: 07-17-2023 predniSONE (De ltasone) 10 mg tablet Indications: Labral tear of shoulder, degenerative, right 50MG FOR 2 DAYS, 40MG FOR 2 DAYS, 30MG FOR 2 DAYS, 20MG FOR 2 DAYS, 10MG FOR 2 DAYS 30 tablet 07/17/2023 Active Start: 04-19-2023 End: 04-24-2023 take 1 tablet by mouth once daily predniSONE (Deltasone) 50 mg tablet Indications: Intrinsic eczema Take 1 tablet (50 mg) by mouth once daily for 5 days. 5 tablet 0 04/19/2023 04/24/2023 Active Start: 08-26-2022 End: 08-31-2022 take 2 tablets by mouth once daily predniSONE (DELTASONE) 20 MG tablet Take 2 tablets by mouth daily for 5 days 10 tablet 0 08/26/2022 08/31/2022 Active Start: 01-17-2022 End: 05-19-2022 take 1 tablet by mouth once daily predniSONE 50 MG Oral Tablet Take 1 tablet daily Quantity: 5 Refills: 0 Ordered: 17-Jan-2022 Bryce Wise DO Start : 17-Jan-2022 End : 19-May-2022 Complete Start: 12-08-2020 End: 08-12-2022 predniSONE 20 MG tablet 3 ta bs daily x 3days; 2 tabs daily x 3days; 1 tab daily x 3days then 1/2 tablet daily x 3days 20 tablet 0 12/08/2020 08/12/2022 Discontinued (Stop Taking at Discharge) Start: 09-30-2020 predniSONE 50 MG Oral Tablet Quantity: 5 Refills: 0 Ordered: 30-Sep-2020 DO Start : 30-Sep-2020 Active take 1 tablet by [facility] twice daily at mealtime predniSONE 20 MG Oral Tablet 1 tablet twice daily with food for 5 days Quantity: 10 Refills: 0 Ordered: 29-Aug-2022 DO Active 27-0.8 MG Oral Tablet (4 sources) Start: 11-21-2019 27-0.8 MG Oral Tablet Quantity: 30 Refills: 0 Ordered: 06-Nov-2020 DO Start : 21-Nov-2019 Active 2 ml prochlorperazine 5 mg/ml injection (1 source) Phenothiazine Start: 08-20-2020 End: 08-20-2020 take 5 mg intravenous route every twenty-four hours as needed 5 mg, Intravenous, Once as needed, nausea, Starting Nidhi 08/20/20 at 0830, For 1 dose, PACU (only) Adminis ter if ondansetron (Zofran), promethazine (Phenergan), and Metocolopramide (Reglan) ineffective or not ordered, or as directed by anesthesia, as needed for nausea/vomiting pyrantel pamoate 144 mg/ml oral suspension (20 sources) Start: 01-03-2019 End: 07-27-2020 pyrantel pamoate (Jesus's Pinworm Medicine) 50 mg/mL suspension Take by mouth . 0 01/03/2019 07/27/2020 Discontinued (Discontinued by another clinician) Start: 01-03-2019 Reeses Pinworm Medicine 144 (50 Base) MG/ML Oral Suspension Quantity: 30 Refills: 0 Ordered: 03-Jan-2019 DO Start : 03-Jan-2019 Active 20 ml ropivacaine hydrochloride 5 mg/ml injection (1 source) Amide Local Anesthetic Start: 08-08-2023 End: 08-08-2023 ROPivacaine (PF) 5 mg/mL (0.5 %) 4 mL injection (NAROPIN) 50 ml sodium chloride 9 mg/ml injection (8 sources) Start: 08-20-2022 End: 08-20-2022 0.9 % sodium chloride bolus Start: 01-13-2022 End: 01-14-2022 0.9 % sodium chloride bolus Start: 10-27-2020 End: 10-27-2020 sodium chloride 0.9% (NS) gabi joyce 1,000 mL Start: 10-27-2020 End: 10-27-2020 sodium chloride (PF) (NS) fl ush 5 mL Start: 09-21-2020 End: 09-21-2020 sodium chloride 0.9% (NS) gabi joyce 500 mL Start: 09-21-2020 End: 09-22-2020 sodium chloride (PF) (NS) fl ush 5 mL Start: 08-01-2020 End: 08-01-2020 sodium chloride 0.9% (NS) gabi joyce 1,000 mL Start: 08-01-2020 End: 08-02-2020 sodium chloride (PF) (NS) fl ush 5 mL sucralfate 1000 mg oral tablet (4 sources) Aluminum Complex Start: 10-27-2020 Sucralfate 1 GM Oral Tablet Quantity: 20 Refills: 0 Ordered: 27-Oct-2020 DO Start : 27-Oct-2020 Active sulfamethoxazole 800 mg / trimethoprim 160 mg oral tablet (15 sources) Dihydrofolate Reductase Inhibitor Antibacterial, Sulfonamide Antimicrobial Start: 05-19-2022 End: 08-29-2022 take 1 tablet by mouth twice daily Sulfamethoxazole -Trimethoprim 800-160 MG Oral Tablet TAKE 1 TABLET TWICE DAILY UNTIL FINISHED. Quantity: 28 Refills: 0 Ordered: 19-May-2022 Bryce Wise DO Start : 19-May-2022 End : 29-Aug-2022 Complete Start: 06-15-2021 take 1 tablet by eric th twice daily Sulfamethoxazole-Trimethoprim 800-160 MG Oral Tablet TAKE 1 TABLET TWICE DAILY UNTIL FINISHED. Quantity: 28 Refills: 0 Ordered: 15-Jun-2021 Bryce Wise DO Start : 15-Jun-2021 Active Start: 12-19-2020 End: 12-28-2020 take 1 tablet by mouth twice daily Bactrim DS 800 mg-160 mg oral tablet ; 1 tab(s) orally 2 times a day Quantity: 20 Refills: 0 Ordered: 19-Dec-2020 Leti Angela Start: 19-Dec-2020 End: 28-Dec-2020 Status: Other Generic Substitution Allowed Comments: Avoid prolonged or excessive exposure to direct and/or artificial sunlight while taking this medication.Finish all this medication unless otherwise directed by prescriber.Medication should be taken with plenty of water. Comment on above: Avoid prolonged or e xcessive exposure to direct and/or artificial sunlight while taking this medication.Finish all this medication unless otherwise directed by prescriber.Medication should be taken with plenty of water. tiZANidine 2 mg oral tablet (20 sources) Central alpha-2 Adrenergic Agonist Start: take 1 tablet by mouth at bedtime tiZANidine HCl - 2 MG Oral Tablet TAKE 1 TABLET Bedtime Quantity: 14 Refills: 0 Ordered: 15-Nov-2021 Ahmet Medina DO Start : 15-Nov-2021 Active End: 07-27-2020 take 1 capsule by mouth every eight hours as needed tiZANidine HCl 2 mg capsule Take 2 mg by mouth three times daily as needed. 0 Active Comment on above: Take 2 mg by mouth t hree times daily as needed. traMADol hydrochloride 50 mg oral tablet (13 sources) Opioid Agonist Start: 02-22-2023 take 1-2 tablets by mouth three times daily as needed traMADol HCl - 50 MG Oral Tablet TAKE 1 TO 2 TABLETS 3 TIMES DAILY NEEDED. Quantity: 30 Refills: 0 Ordered: 22-Feb-2023 Bryce Wise DO Start : 22-Feb-2023 Active Start: 05-12-2021 take 1 tablet by eric th every six hours traMADol HCl - 50 MG Oral Tablet Take one tablet by mouth every 6hrs. Quantity: 28 Refills: 0 Ordered: 12-May-2021 Radu Fisher MD Start : 12-May-2021 Active Start: 07-21-2020 End: 08-02-2020 take 1 tablet by mouth every six hours as needed traMADoL (ULTRAM) 50 mg tablet Indications: Acute pancreatitis without infection or necrosis, unspecified pancreatitis type , Calculus of gallbladder without cholecystitis without obstruction Take 1 (one) tablet (50 mg total) by mouth every 6 (six) hours as needed . 10 tablet 0 07/21/2020 08/02/2020 Discontinued (Stop Taking at Discharge) 1 ml triamcinolone acetonide 40 mg/ml injection (20 sources) Corticosteroid Start: 08-08-2023 End: 08-08-2023 triamcinolone acetonide 80 mg injection (KeNALog 40) Start: 09-29-2021 triamcinolone (Kenalog) 0.1 % ointment Apply topically 2 times a day. 0 09/29/2021 Active Start: 09-29-2021 triamcinolone (KENALOG) 0.1 % ointment Indications: Eczema, unspecified type Apply topically 2 times daily 454 g 1 09/29/2021 Active Start: 01-25-2021 Triamcinolone Acetonide 0.1 % External Ointment Quantity: 30 Refills: 0 Ordered: 25-Jan-2021 DO Start : 25-Jan-2021 Active Start: 12-23-2020 triamcinolone 0.5% topical cream ; Apply topically to affected area 2 times a day Quantity: 1 Refills: 1 Ordered: 23-Dec-2020 Rahul Hirsch Start: 23-Dec-2020 Status: Other Generic Substitution Allowed Comments: For external use only. triamcinolone ac etonide (KENALOG) 0.5 % cream Apply 1 application to affected area three times daily as needed (rash). 0 Active Comment on above: For external use onl y. Apply 1 application to affected area three times daily as needed (rash). water 1000 mg/ml injectable solution (2 sources) Start: 08-08-2023 End: 08-08-2023 sterile water 5 mL injection Start: 08-12-2022 End: 08-12-2022 Sterile water irrigation Zafemy 150-35 MCG/24HR Transdermal Patch Weekly (4 sources) Start: 01-10-2022 End: 05-19-2022 apply 1 dose transdermal route every week Zafemy 150-35 MCG/24HR Transdermal Patch Weekly APPLY 1 PATCH WEEKLY DIRECTED. Quantity: 12 Refills: 3 Ordered: 10-Jan-2022 Mazin JONES, Meño Norton Start : 10-Jan-2022 End : 19-May-2022 Complete Start: 01-10-2022 apply 1 dose transde rmal route every week Zafemy 150-35 MCG/24HR Transdermal Patch Weekly APPLY 1 PATCH WEEKLY DIRECTED. Quantity: 12 Refills: 3 Ordered: 10-Jan-2022 Meño Retana MD Start : 10-Jan-2022 Active Problems Active Problems Problem Classification Problem Date Documented Da te Episodic/Chronic Allergic reactions (20 sources) Atopic dermatitis; Translations: [Other atopic dermatitis and related conditions] Onset: 3 04-19-2023 Chronic Allergic reactions (20 sources) Nummular eczema; Translations: [Contact hypersensitivity] Onset: 7 12-19-2020 Episodic Anal and rectal conditions (20 sources) Anal fissure; Translations: [Anal fissure] Onset: 4 04-03-2024 Episodic Anxiety disorders (20 sources) Mixed anxiety and depressive disorder; Translations: [Anxiety state, unspecified] Onset: 4 04-03-2024 Chronic Complications of surgical procedures or medical care (20 sources) Postoperative wound infection; Translations: [Other postoperative infection] Episodic Contraceptive and procreative management (20 sources) Emergency contraception; Translations: [Patient encounter status] Episodic Deficiency and other anemia (5 sources) Iron deficiency anemia due to blood loss; Translations: [Iron deficiency anemia secondary to blood loss (chronic)] Onset: 4 04-03-2024 Chronic Deficiency and other anemia (1 source) Anemia; Translations: [Anemia, unspecified] Episodic Endometriosis (1 source) Uterine adenomyosis; Translations: [Adenomyosis of uterus] Chronic Esophageal disorders (20 sources) Gastroesophageal reflux disease; Translations: [Esophageal reflux] Onset: 4 04-03-2024 Chronic Fracture of lower limb (20 sources) Fracture of fibula; Translations: [Closed fracture of unspecified part of fibula alone] Onset: 1 01-28-2021 Episodic Joint disorders and dislocations; trauma-related (4 sources) Glenoid labrum tear; Translations: [Other articular cartilage disorders, right shoulder] Onset: 4 06-12-2023 Chronic Menstrual disorders (20 sources) Dysmenorrhea; Translations: [Irregular periods] Onset: 1 01-28-2021 Chronic Mood disorders (20 sources) Moderate depressed bipolar I disorder; Translations: [Bipolar I disorder, most recent episode (or current) depressed, moderate] Onset: 4 04-03-2024 Chronic Nausea and vomiting (20 sources) Nausea; Translations: [Nausea alone] Onset: 3 04-03-2024 Episodic Nutritional deficiencies (20 sources) Vitamin D deficiency; Translations: [Unspecified vitamin D deficiency] Onset: 1 01-28-2021 Chronic Other acquired deformities (20 sources) Disorder of hip; Translations: [Contracture of tendon (sheath)] Chronic Other acquired deformities (1 source) Contracture, unspecified hip; Translations: [Contracture, unspecified hip] Onset: 2 Chronic Other circulatory disease (20 sources) Raynaud's phenomenon; Translations: [Raynaud's syndrome] Onset: 4 04-03-2024 Chronic Other connective tissue disease (20 sources) Achilles tendinitis; Translations: [Achilles bursitis or tendinitis] Onset: 4 04-03-2024 Episodic Other connective tissue disease (20 sources) Foot pain; Translations: [Pain in limb] Episodic Other connective tissue disease (20 sources) Biceps tendinitis; Translations: [Bicipital tenosynovitis] Episodic Other connective tissue disease (20 sources) Adhesive capsulitis of shoulder; Translations: [Adhesive capsulitis of shoulder] Episodic Other connective tissue disease (20 sources) Impingement syndrome of shoulder region; Translations: [Other affections of shoulder region, not elsewhere classified] Episodic Other connective tissue disease (20 sources) Trochanteric bursitis; Translations: [Enthesopathy of hip region] Episodic Other connective tissue disease (1 source) Muscle spasm of cervical muscle of neck; Translations: [Other muscle spasm] Episodic Other connective tissue disease (3 sources) Fibromyalgia; Translations: [Fibromyalgia] Episodic Other connective tissue disease (1 source) Pain in right arm; Translations: [Pain in right arm] Onset: 3 Episodic Other connective tissue disease (1 source) Fibromyalgia; Translations: [Fibromyalgia] Onset: 3 Episodic Other connective tissue disease (2 sources) Shoulder girdle weakness; Translations: [Other symptoms and signs involving the musculoskeletal system] 08-08-2023 Episodic Other connective tissue disease (3 sources) Poor posture; Translations: [Abnormal posture] 08-08-2023 Episodic Other connective tissue disease (1 source) Female pelvic floor dysfunction; Translations: [Other specified disorders of muscle] 11-06-2023 Episodic Other connective tissue disease (2 sources) Adhesive capsulitis of left shoulder; Translations: [Adhesive capsulitis of left shoulder] Onset: 4 04-03-2024 Episodic Other connective tissue disease (2 sources) Bilateral trochanteric bursitis; Translations: [Trochanteric bursitis, right hip] Onset: 4 04-03-2024 Episodic Other diseases of bladder and urethra (1 source) Overactive bladder; Translations: [Overactive bladder] 11-06-2023 Chronic Other diseases of bladder and urethra (2 sources) Overactive bladder; Translations: [Overactive bladder] Onset: 4 Chronic Other ear and sense organ disorders (1 source) Otitis externa; Translations: [Cellulitis of right external ear] 02-09-2024 Episodic Other ear and sense organ disorders (1 source) Cellulitis of right external ear; Translations: [Infective otitis externa, unspecified] 02-09-2024 Episodic Other female genital disorders (20 sources) Abnormal uterine bleeding; Translations: [Other disorders of menstruation and other abnormal bleeding from female genital tract] Onset: 4 08-14-2021 Chronic Other female genital disorders (2 sources) Pain in female genitalia on intercourse; Translations: [Unspecified dyspareunia] Chronic Other female genital disorders (2 sources) Unspecified dyspareunia; Translations: [Unspecified dyspareunia] Onset: 3 Chronic Other female genital disorders (2 sources) Abnormal uterine and vaginal bleeding, unspecified; Translations: [Abnormal uterine and vaginal bleeding, unspecified] Onset: 3 Chronic Other female genital disorders (20 sources) Polyp of corpus uteri; Translations: [Polyp of corpus uteri] Episodic Other female genital disorders (5 sources) Polyp of corpus uteri; Translations: [Endometrial polyp] Onset: 4 04-03-2024 Episodic Other gastrointestinal disorders (20 sources) Alteration in bowel elimination; Translations: [Other symptoms involving digestive system] Episodic Other gastrointestinal disorders (1 source) Diarrhea; Translations: [Diarrhea, unspecified] Episodic Other gastrointestinal disorders (1 source) Constipation; Translations: [Constipation, unspecified] Episodic Other gastrointestinal disorders (20 sources) Chronic constipation; Translations: [Constipation, unspecified] Onset: 4 04-03-2024 Episodic Other gastrointestinal disorders (6 sources) Altered bowel function; Translations: [Other symptoms involving digestive system] Onset: 4 04-03-2024 Episodic Other injuries and conditions due to external causes (20 sources) Injury of superior glenoid labrum of shoulder joint; Translations: [Other specified aftercare] Episodic Other injuries and conditions due to external causes (20 sources) Local infection of wound; Translations: [Posttraumatic wound infection not elsewhere classified] Onset: 4 04-03-2024 Episodic Other nervous system disorders (3 sources) Disorder of left sciatic nerve 04-24-2024 Chronic Other nervous system disorders (4 sources) Other chronic pain; Translations: [Other chronic pain] Onset: 4 Chronic Other nervous system disorders (20 sources) Numbness and tingling sensation of skin; Translations: [Disturbance of skin sensation] Onset: 4 04-03-2024 Episodic Other nervous system disorders (2 sources) Postoperative pain ; Translations: [Other acute postprocedural pain] Episodic Other nervous system disorders (1 source) Acute postoperative pain; Translations: [Other acute postprocedural pain] Episodic Other nervous system disorders (2 sources) Other acute postprocedural pain; Translations: [Other acute postprocedural pain] Onset: 3 Episodic Other non-traumatic joint disorders (20 sources) Shoulder joint pain; Translations: [Pain in joint, shoulder region] Episodic Other non-traumatic joint disorders (20 sources) Pain in right shoulder; Translations: [Chronic pain of right upper limb] Onset: 4 06-12-2023 Episodic Other non-traumatic joint disorders (20 sources) Shoulder pain; Translations: [Pain in joint, shoulder region] Episodic Other non-traumatic joint disorders (20 sources) Hip pain; Translations: [Pain in joint, pelvic region and thigh] Episodic Other non-traumatic joint disorders (20 sources) Femoral acetabular impingement; Translations: [Other specified disorders of joint, pelvic region and thigh] Onset: 4 04-03-2024 Episodic Other non-traumatic joint disorders (14 sources) Multiple joint pain; Translations: [Pain in joint, multiple sites] Episodic Other non-traumatic joint disorders (4 sources) Disorder of shoulder; Translations: [Other specified disorders of joint, shoulder region] Episodic Other non-traumatic joint disorders (1 source) Pain in unspecified hip; Translations: [Pain in hip] Onset: 3 Episodic Other non-traumatic joint disorders (1 source) Pain in right wrist; Translations: [Pain in right wrist] Onset: 3 Episodic Other non-traumatic joint disorders (3 sources) Pain of right shoulder joint; Translations: [Pain in right shoulder] 08-08-2023 Episodic Other non-traumatic joint disorders (2 sources) Decreased range of shoulder movement; Translations: [Stiffness of right shoulder, not elsewhere classified] 08-08-2023 Episodic Other non-traumatic joint disorders (6 sources) Pain in left knee; Translations: [Pain in joint, lower leg] Onset: 4 04-24-2024 Episodic Other non-traumatic joint disorders (2 sources) Disorder of hip; Translations: [Joint disorder, unspecified] Onset: 4 04-03-2024 Episodic Other nutritional; endocrine; and metabolic disorders (20 sources) Body mass index 25-29 - overweight; Translations: [Overweight] Onset: 4 04-03-2024 Episodic Other nutritional; endocrine; and metabolic disorders (20 sources) Overweight in adulthood with body mass index of 25 or more but less than 30; Translations: [Overweight] Resolved: 3 Episodic Other and delivery including normal (1 source) ; Translations: [, unspecified gestational age] Episodic Other skin disorders (10 sources) Acne; Translations: [Other acne] Episodic Other skin disorders (20 sources) Acne vulgaris; Translations: [Other acne] Onset: 4 04-03-2024 Episodic Other upper respiratory disease (5 sources) Allergic rhinitis; Translations: [Allergic rhinitis, cause unspecified] Onset: 4 04-03-2024 Chronic Other upper respiratory infections (20 sources) Viral upper respiratory tract infection; Translations: [Pharyngolaryngitis] Onset: 0 Resolved: 2 02-28-2020 Episodic Otitis media and related conditions (20 sources) Acute suppurative otitis media without spontaneous rupture of ear drum; Translations: [Acute otitis media] Onset: 4 04-03-2024 Episodic Residual codes; unclassified (1 source) Past history of procedure; Translations: [Personal history of extracorporeal membrane oxygenation (ECMO)] Episodic Residual codes; unclassified (2 sources) History of cholecystectomy; Translations: [Status post laparoscopic cholecystectomy] Onset: 1 09-03-2020 Episodic Residual codes; unclassified (20 sources) History of extracorporeal membrane oxygenation; Translations: [History of extracorporeal membrane oxygenation (ECMO)] Onset: 1 01-28-2021 Episodic Residual codes; unclassified (2 sources) Pain; Translations: [Pain] Onset: 3 Episodic Skin and subcutaneous tissue infections (20 sources) Impetigo; Translations: [Impetigo] Onset: 4 12-19-2020 Episodic Spondylosis; intervertebral disc disorders; other back problems (3 sources) Cervical radiculopathy; Translations: [Cervical radiculopathy] Chronic Spondylosis; intervertebral disc disorders; other back problems (20 sources) Radiculopathy, cervical region; Translations: [Cervicalgia] Onset: 8 01-28-2021 Episodic Sprains and strains (20 sources) Shoulder strain; Translations: [Strain of neck muscle] Onset: 0 01-28-2021 Episodic Superficial injury; contusion (20 sources) Contusion of elbow; Translations: [Contusion of elbow] Onset: 4 04-03-2024 Episodic Unclassified (1 source) Unknown / UNK(Unknown) Onset: 7 Unclassified (3 sources) Superior glenoid labrum lesion of right shoulder, init; Translations: [Superior glenoid labrum lesion of right shoulder, init] Onset: 8 Unclassified (3 sources) Encounter for other preprocedural examination; Translations: [Encounter for other preprocedural examination] Onset: 12-05-201 8 Unclassified (1 source) Sprain of joints and ligaments of unsp parts of neck, init Onset: 8 Unclassified (4 sources) RASH 12-19-2020 Comment on above: RASH Unclassified (2 sources) POSTOP RT SHLDR 11-24-2020 Comment on above: POSTOP RT SHLDR Unclassified (2 sources) RT SHLDR 11-24-2020 Comment on above: RT SHLDR Unclassified (2 sources) PREOP RT SHLDR 11-24-2020 Comment on above: PREOP RT SHLDR Unclassified (1 source) Dermatitis, contact 12-19-2020 Unclassified (1 source) Cellulitis of axilla 12-19-2020 Unclassified (1 source) Impetiginized atopic dermatitis 12-23-2020 Unclassified (2 sources) COLD SYM 03-18-2021 Comment on above: COLD SYM Unclassified (2 sources) POST-OP RT SHOULDER LABRAL REPAIR 01-29-2021 Comment on above: POST-OP RT SHOULDER LABRAL REPAIR Unclassified (2 sources) SUPERIOR GLENOID LABRUM LESION OF LEFT SHOULDER, INIT ENCNTR S43.432A [id number] 02-03-2021 Comment on above: SUPERIOR GLENOID LAB RUM LESION OF LEFT SHOULDER, INIT ENCNTR S43.432A [id number] Unclassified (1 source) PRE-OP RT SHOULDER LABRAL REPAIR 01-29-2021 Comment on above: PRE-OP RT SHOULDER L ABRAL REPAIR Unclassified (2 sources) RIB PAIN X ONE MONTH 05-07-2021 Comment on above: RIB PAIN X ONE MONTH Unclassified (1 source) SUPERIOR GLENOID LABRUM LESION OF LEFT SHOULDER, INIT ENCNTR 05-04-2021 Comment on above: SUPERIOR GLENOID LAB RUM LESION OF LEFT SHOULDER, INIT ENCNTR Unclassified (4 sources) VAG BLEED 08-14-2021 Comment on above: VAG BLEED Unclassified (2 sources) FUV RT SHOULDER 07-14-2021 Comment on above: FUV RT SHOULDER Unclassified (2 sources) LOWER ABD PAIN 07-14-2022 Comment on above: LOWER ABD PAIN Unclassified (2 sources) Adenomyosis of the uterus; Translations: [Adenomyosis of the uterus] Onset: Unclassified (1 source) Contact with and (suspected) exposure to COVID-19; Translations: [Contact with and (suspected) exposure to COVID-19] Onset: 3 Unclassified (1 source) Low back pain, unspecified; Translations: [Low back pain, unspecified] Onset: 2 Unclassified (3 sources) Chronic pain of left knee 04-24-2024 Urinary tract infections (20 sources) Acute lower urinary tract infection; Translations: [Acute urinary tract infection] Onset: 3 Resolved: 3 Episodic Viral infection (20 sources) Herpes simplex; Translations: [Herpes simplex without mention of complication] Onset: 1 01-28-2021 Episodic Comment on above: Added by Problem Lis t Migration; 2012-08-27; Moved to [facility] Apr 24 2013 9:16PM; Past or Other Problems Problem Classification Problem Date Documented Date Episodic/Chronic Abdominal pain (20 sources) Abdominal pain; Translations: [Right upper quadrant pain] Onset: 07-27-2020 07-27-2020 Episodic Biliary tract disease (19 sources) Cholelithiasis without obstruction; Translations: [Biliary calculus] Onset: 07-27-2020 07-27-2020 Episodic Deficiency and other anemia (4 sources) Anemia, unspecified; Translations: [Anemia, unspecified] Onset: 07-24-2022 Episodic Genitourinary symptoms and ill-defined conditions (20 sources) Bacteriuria; Translations: [Blood in urine] Onset: 11-06-2023 11-06-2023 Episodic Immunizations and screening for infectious disease (20 sources) Patient encounter status; Translations: [Screening examination for venereal disease] Onset: 07-15-2022 04-03-2024 Episodic Nonmalignant breast conditions (3 sources) Nipple discharge; Translations: [Nipple discharge] Onset: 10-06-2017 Episodic Other connective tissue disease (1 source) Other muscle spasm; Translations: [Other muscle spasm] Onset: 11-13-2021 Episodic Other connective tissue disease (3 sources) Trochanteric bursitis, right hip; Translations: [Trochanteric bursitis, right hip] Onset: 09-30-2021 Episodic Other connective tissue disease (3 sources) Trochanteric bursitis, left hip; Translations: [Trochanteric bursitis, left hip] Onset: 09-30-2021 Episodic Other connective tissue disease (1 source) Pain in left leg; Translations: [Pain in left leg] Onset: 09-22-2021 Episodic Other connective tissue disease (2 sources) Other specified disorders of muscle; Translations: [Other specified disorders of muscle] Onset: 11-06-2023 Episodic Other female genital disorders (2 sources) Other specified noninflammatory disorders of vagina; Translations: [Other specified noninflammatory disorders of vagina] Onset: 07-06-2023 Episodic Other non-traumatic joint disorders (3 sources) Pain in unspecified joint; Translations: [Pain in unspecified joint] Onset: 01-25-2018 Episodic Other non-traumatic joint disorders (3 sources) Pain in right hip joint; Translations: [Pain in right hip] Onset: 09-17-2021 Episodic Other non-traumatic joint disorders (3 sources) Pain in right hip; Translations: [Pain in right hip] Onset: 09-17-2021 Episodic Other non-traumatic joint disorders (2 sources) Pain in left hip; Translations: [Pain in left hip] Onset: 09-17-2021 Episodic Other screening for suspected conditions (not mental disorders or infectious disease) (20 sources) Liver function tests abnormal; Translations: [Abnormal results of liver function studies] Onset: 07-27-2020 07-27-2020 Episodic Other skin disorders (20 sources) Eruption; Translations: [Rash and other nonspecific skin eruption] Onset: 12-20-2016 Episodic Other skin disorders (2 sources) Malassezia folliculitis; Translations: [Other specified follicular disorders] Onset: 07-05-2023 04-03-2024 Episodic Ovarian cyst (2 sources) Follicular cyst of right ovary; Translations: [Follicular cyst of left ovary] Onset: 10-28-2021 Episodic Pancreatic disorders (not diabetes) (19 sources) Acute pancreatitis; Translations: [Gallstone pancreatitis] Onset: 07-23-2020 07-23-2020 Episodic Residual codes; unclassified (10 sources) Gestation period, 39 weeks; Translations: [39 weeks gestation of ] Onset: 07-02-2020 07-02-2020 Episodic Unclassified (1 source) R ANKLE PAIN Onset: 01-01-2017 Unclassified (20 sources) Patient encounter status; Translations: [Surveillance for Depo-Provera contraception] Unclassified (8 sources) Chronic pain of right upper limb; Translations: [Chronic right shoulder pain] Unclassified (8 sources) History of extracorporeal membrane oxygenation; Translations: [Personal history of extracorporeal membrane oxygenation (ECMO)] Unclassified (20 sources) Never smoked tobacco; Translations: [Never smoker] Unclassified (2 sources) Adenomyosis of the uterus; Translations: [Adenomyosis of the uterus] Onset: 07-26-2022 Unclassified (6 sources) Onset: 04-19-2023 04-19-2023 NEGATED: Highlighted row has not occurred!Residual codes; unclassified (20 sources) Disease Episodic Results Test Name Value Interpretation Reference Range Facility XR KNEE LEFT 1-2 VIEWSon XR KNEE LEFT 1-2 VIEWS Interpreted By: Anthony Gifford, STUDY: XR KNEE LEFT 1-2 VIEWS INDICATION: Signs/Symptoms:knee pain. COMPARISON: None ACCESSION NUMBER(S): [id number] ORDERING CLINICIAN: SHASHI FLETCHER FINDINGS: No osseous, articular, or soft tissue abnormality. IMPRESSION: Normal radiographs left knee. Signed by: Anthony Gifford 04/25/2024 9:15 AM Dictation workstation: [id number] [facility] Jose Elias 2024 CNOV Office Visit (MARC ) SUSSY CRANE ([id number]) 1995 F Date Time Provider Department 01/02/24 9:30 AM ALMA CAVANAUGH During your visit today, we recorded the following information about you: Alma Cavanaugh MD 2024 10:18 AM Signed RETURN ENCOUNTER Chief Complaint: chronic right shoulder pain HPI: 28 year old female following up for her right shoulder. She had [facility] CSI with Dr. Sena on 08/07 and she reports about one week of relief from this. She rates pain today at 4/10 dull/aching. Pain: same AROM: same Function: same Date of Injury: 2012 Activity: overhead reaching Severity: moderate No family history on file. ROS reviewed on [facility] form which is negative except HPI. Current Outpatient Medications Medication Sig clobetasol (TEMOVATE) 0.05 % cream Apply to affected area two times a day. cholecalciferol (VITAMIN D) 1,000 unit tab tablet Take 1 tablet by mouth once daily. nitroglycerin (NITRO-BID) 2 % oint ointment Apply 1 g as directed twice daily. Naproxen SR (EC-NAPROSYN) 500 mg EC tablet Take 500 mg by mouth twice daily as needed (pain). tiZANidine HCl 2 mg capsule Take 2 mg by mouth three times daily as needed. triamcinolone acetonide (KENALOG) 0.5 % cream Apply 1 application to affected area three times daily as needed (rash). No current facility-administered medications for this visit. ALLERGIES Allergen Reactions [place]wald Rash Other reaction(s): (Rash) or (C/O a rash) Morphine Itching Nickel Rash Other reaction(s): (Rash) or (C/O a rash) Allergies, medications, past surgical history, family history and past medical history were reviewed per this encounter. Physical Examination: Region: Shoulder General Appearance: Appears healthy, well-nourished, no deformities. Left Exam: AROM: normal PROM: normal Point Tenderness location: none Swelling/Effusion: none Stability: normal Muscle Strength: normal Sensation:normal Reflexes:normal Special Tests: None Skin: normal Right Exam: Notable and significant periscapular and trapezial muscle hypertonicity AROM: decreased extension and decreased flexion, forward flexion to 160 abduction to 120 with guarding, ER to 50, IR to T10 PROM: Somewhat active range of motion, forward flexion to 170, abduction to 160 Point Tenderness location: Tenderness to palpation over the parascapular musculature, trapezius, AC joint and mildly over the clavicle, mild bicipital groove tenderness Swelling/Effusion: none Stability: No evidence of gross shoulder instability with loading or shuck Muscle Strength: 4+/5 shoulder abduction and forward flexion, 5/5 elbow flexion extension Sensation:normal Reflexes:normal Special Tests: Positive TTP over AC joint, negative bearhug, negative Speed, negative Neer, pain over trapezius and posterior shoulder with resisted shoulder abduction Skin: normal Images have been reviewed and discussed with patient. No new imaging today. Previously completed x-ray and MRI from June reviewed again. Assessment and Plan: Sussy returns now status post Brisement in July. States that she is having the exact same pain as at her last visit in June. She was referred to physical therapy and completed 4 visits after her procedure. She continues to describe a constant, aching, 4/10 pain at all times and does not necessarily point to any one activity exacerbating the pain. This is a multiply operated right shoulder with prior biceps tenodesis and labral repair/revision at an outside facility. On examination she does appear to have significant periscapular and trapezial hypertonicity still but her range of motion is improved from our last documentation. There is not concern for a frozen shoulder at this time but she does demonstrate considerable muscle hypertonicity which would benefit from soft tissue work. Additionally we explained that the rehabilitation and physical therapy to this point has not been significant enough to lead to complete improvement and our recommendation would be for a continued course of physical therapy and home programming targeted at soft tissue work and stretching with periscapular muscle strengthening and stabilization techniques. There is no indication at this time in reviewing the MRI and her exam for a surgical procedure and this was explained to her in detail. She was understanding of the plan for continued therapy and the expectation for persistent pain as long as restrictions to motion exist. She will follow up as needed. [facility] STAFF PHYSICIAN NOTE OF PERSONAL INVOLVEMENT IN CARE Resident's history reviewed. I have personally examined the patient and repeated the stack components of the exam/history. The assessment and plan were formulated and discussed with the resident/fellow. Please see my below dicatation for all pertinent highlig (more content not included)... Normal [facility] B hCG Qualon 12-23-2023 Beta HCG ( test) Ql Negative Normal [facility] Comment on above: Performed By: #### 2 [id number] #### [facility] [address] [place] [address] BMPOrdered By: Melquiades soliz on 12-23-2023 Anion gap [Moles/Vol] 11 mmol/L Normal 6 - 16 mEq/L [facility] Comment on above: Performed By: #### 2 [id number] #### [facility] [address] [place] [address] Calcium [Mass/Vol] 9.8 mg/dL Normal 8.9 - 11. 1 mg/dL [facility] Comment on above: Performed By: #### 2 [id number] #### [facility] [address] [place] [address] Chloride [Moles/Vol] 103 mmol/L Normal 101 - 1 11 mmol/L [facility] Comment on above: Performed By: #### 2 [id number] #### [facility] [address] [place] [address] CO2 [Moles/Vol] 29 mmol/L Normal 21 - 31 mmol/L [facility] Comment on above: Performed By: #### 2 [id number] #### [facility] [address] [place] [address] Creatinine [Mass/Vol] 0.8 mg/dL Normal 0.5 - 1.3 mg/dL [facility] Comment on above: Performed By: #### 2 [id number] #### [facility] [address] [place] [address] Glucose [Mass/Vol] 78 mg/dL Normal 55 - 199 mg/dL [facility] Comment on above: Performed By: #### 2 [id number] #### [facility] [address] [place] [address] Potassium [Moles/Vol] 3.4 mmol/L Low 3.5 - 5.3 mmol/L [facility] Comment on above: Performed By: #### 2 [id number] #### [facility] [address] [place] [address] Sodium [Moles/Vol] 140 mmol/L Normal 135 - 145 mmol/L [facility] Comment on above: Performed By: #### 2 [id number] #### [facility] [address] [place] [address] Urea nitrogen [Mass/Vol] 11 mg/dL Normal 5 - 21 mg/dL [facility] Comment on above: Performed By: #### 2 [id number] #### [facility] [address] [place] [address] BMPon 12-23-2023 Urea nitrogen/Creatinine [Mass ratio] 14 No Units Normal 10-20 [facility] Comment on above: Performed By: #### 2 [id number] #### [facility] [address] [place] [address] BNPOrdered By: Melquiades soliz on 12-23-2023 Natriuretic peptide B (Bld) [Mass/Vol] 6 pg/mL Normal 5-80 [facility] Comment on above: Performed By: #### 1 [id number] #### [facility] [address] [place] [address] CBC w/ Auto DiffOrdered By: SYSTEM SYSTEM on 12-23-2023 Basophils/100 WBC (Bld) 0.5 % Normal 0.0 - 2.0 % [facility] Comment on above: Performed By: #### 2 [id number] #### [facility] [address] [place] [address] Basophils/Leukocytes Auto (Bld) [Pure # fraction] 0.0 E9/L Normal 0.0 - 0.2 E9/L [facility] Comment on above: Performed By: #### 2 [id number] #### [facility] [address] [place] [address] Eosinophils (Bld) [#/Vol] 0.1 E9/L Normal 0.0 - 0.5 E9/L [facility] Comment on above: Performed By: #### 2 [id number] #### [facility] [address] [place] [address] Eosinophils/100 WBC (Bld) 1.2 % Normal 0.0 - 8.0 % [facility] Comment on above: Performed By: #### 2 [id number] #### [facility] [address] [place] [address] Erythrocyte distribution width (RBC) [Ratio] 13.7 % Normal 10.9 - 14.2 % [facility] Comment on above: Performed By: #### 2 [id number] #### [facility] [address] [place] [address] Hematocrit (Bld) [Volume fraction] 39.8 % Normal 34.0 - 46.0 % [facility] Comment on above: Performed By: #### 2 135129 #### [facility] [address] [place] [address] Hemoglobin (Bld) [Mass/Vol] 13.4 g/dL Normal 12.0 - 16.0 gm/dL [facility] Comment on above: Performed By: #### 2 [id number] #### [facility] [address] [place] [address] Lymphocytes (Bld) [#/Vol] 3.2 E9/L Normal 1.0 - 4.0 E9/L [facility] Comment on above: Performed By: #### 2 [id number] #### [facility] [address] [place] [address] Lymphocytes/100 WBC (Bld) 36.5 % Normal 14.0 - 50.0 % [facility] Comment on above: Performed By: #### 2 [id number] #### [facility] [address] [place] [address] MCH (RBC) [Entitic mass] 28.8 pg Normal 27.0 - 34.0 pg [facility] Comment on above: Performed By: #### 2 [id number] #### [facility] [address] [place] [address] MCHC (RBC) [Mass/Vol] 33.7 g/dL Normal 31.4 - 36.0 gm/dL [facility] Comment on above: Performed By: #### 2 [id number] #### [facility] [address] [place] [address] MCV (RBC) [Entitic vol] 85.4 fL Normal 80.0 - 100.0 fL [facility] Comment on above: Performed By: #### 2 [id number] #### [facility] [address] [place] [address] Monocytes (Bld) [#/Vol] 0.6 E9/L Normal 0.2 - 1.0 E9/L [facility] Comment on above: Performed By: #### 2 [id number] #### [facility] [address] [place] [address] Neutrophils (Bld) [#/Vol] 4.9 E9/L Normal 2.0 - 7.5 E9/L [facility] Comment on above: Performed By: #### 2 [id number] #### [facility] [address] [place] [address] Neutrophils/100 WBC (Bld) 55.2 % Normal 36.0 - 75.0 % [facility] Comment on above: Performed By: #### 2 [id number] #### [facility] [address] [place] [address] Platelet mean volume (Bld) [Entitic vol] 7.4 fL Normal 6.4 - 10.8 fL [facility] Comment on above: Performed By: #### 2 [id number] #### [facility] [address] [place] [address] Platelets (Bld) [#/Vol] 339.0 E9/L Normal 150.0 - 500.0 E9/L [facility] Comment on above: Performed By: #### 2 [id number] #### [facility] [address] [place] [address] RBC (Bld) [#/Vol] 4.7 E12/L Normal 4.3 - 5.9 E12/L [facility] Comment on above: Performed By: #### 2 [id number] #### [facility] [address] [place] [address] WBC corrected for nucl RBC Auto (Bld) [#/Vol] 8.9 E9/L Normal 4.0 - 11.0 E9/L [facility] Comment on above: Performed By: #### 2 [id number] #### [facility] [address] [place] [address] CHEMISTRYOrdered By: Melquiades hassan on 12-23-2023 Urea nitrogen/Creatinine [Mass ratio] 14 mg/mg Normal 10 - 20 [facility] ED Clinical Summaryon 2023 ED Clinical Summary ED Clinical Summary [address] [address] ED Clinical Summary Person Information Name: SUSSY CRANE Linda/[facility] Age: 28 Years : 1995 Sex: Female Language: Singaporean PCP: BRYCE WISE II Marital Status: Single Visit Id: Visit Reason: Medical problem - minor; SWOLLEN ARMS Speciality: Acuity: 3 Enc Type: Emergency Med Service: Emergency Arrival: 12/23/2023 19:09:46 Discharge: 12/23/2023 21:20:47 LOS: 000 02:11 Checkin: 12/23/2023 19:09:46 Checkout: 12/23/2023 21:20:47 Dispo Type: Home (Routine DC) EVENTS: Event Name Event Status Request Date/Time Start Date/Time Complete Date/Time Arrive Complete 12/23/2023 19:09:46 12/23/2023 19:09:46 12/23/2023 19:09:46 Document Home Meds Request 12/23/2023 19:09:46 Triage Complete 12/23/2023 19:09:46 12/23/2023 19:22:31 12/23/2023 19:22:31 Registration Complete 12/23/2023 19:17:00 12/23/2023 19:17:00 12/23/2023 19:17:00 Reg Complete Request 12/23/2023 19:17:00 Reg Bed Request Complete 12/23/2023 19:17:00 12/23/2023 19:17:00 12/23/2023 19:17:00 Bed Assign Complete 12/23/2023 19:22:49 12/23/2023 19:22:49 12/23/2023 19:22:49 Dr Exam Complete 12/23/2023 19:22:49 12/23/2023 19:23:53 12/23/2023 19:23:53 RN Exam Complete 12/23/2023 19:22:49 12/23/2023 19:51:47 12/23/2023 19:51:47 Registration Request 12/23/2023 19:23:53 Dr Exam Complete 12/23/2023 19:23:58 12/23/2023 19:23:58 12/23/2023 19:23:58 Pending Labs Complete 12/23/2023 19:39:48 12/23/2023 20:45:13 Lab Complete 12/23/2023 19:39:48 12/23/2023 20:45:13 Pending Labs Complete 12/23/2023 20:06:41 12/23/2023 20:06:41 12/23/2023 20:42:40 Lab Complete 12/23/2023 20:06:41 12/23/2023 20:06:41 12/23/2023 20:42:40 Discharge Complete 12/23/2023 21:04:10 12/23/2023 21:20:50 12/23/2023 21:20:50 Transfer Complete 12/23/2023 21:20:50 12/23/2023 21:20:50 12/23/2023 21:20:50 ADDRESS: [address] [place] [id number] [facility] DOC NOTES: MEDICAL INFORMATION: Prescriptions Given: PATIENT EDUCATION INFORMATION: Instructions: Medical Screening Exam Follow up: With: Address: When: [address] [address] [place], [place] [id number] [phone] Business (1) In 3 days 12/26/2023 Comments: Call Dr for diagnosis based follow up DIAGNOSIS: Encounter for medical screening examination Normal [facility] ED Note-Physicianon 12-23-19 24 ED Note-Physician ED Note-Physician Basic Information Time Seen: Juan Manuel Araujo PA-C 12/23/2023 19:23 Chief Complaint pt to ED with c/o retaining water . states she feels like her whole body is a bruise and skin feels tight. denies CP or SOB, denies PMH. hx of fibromyalgia per pt. History of Present Illness A 28-year-old female reports to the emergency department with complaints of retaining water . Reports that she feels more swollen. She states that she just feels unwell. She recently states that she was on steroids, thinks that they have may have caused this. She denies any chest pain or shortness of breath. Reports that she does have a history of fibromyalgia. Denies any other concerns at this time. Review of Systems No other aggravating or relieving factors no other associated symptoms no other prior treatments or complaints. Family: Reviewed and noncontributory Social: lives at home Review of systems negative unless otherwise specified in the HPI. Physical Exam Vitals & Measurements T: 36.8 ?C(Oral) HR: 75(Peripheral) RR: 16 BP: 133/77 SpO2: 96% HT: 163 cm WT: 78.4 kg BMI: 29.51 General: The patient appears well and in no apparent distress. Patient is resting comfortably in chair. Afebrile Skin: Warm, dry, no pallor noted. Head: Normocephalic, atraumatic Neck: No JVD Eye: PERRLA, EOMI ENT: Moist mucus membranes Cardiovascular: Regular rate normal peripheral perfusion radial pulses +2 bilaterally. Pedal pulses +2 bilaterally Respiratory: No respiratory distress no accessory muscle use no obvious audible wheezing Chest Wall: no deformity Musculoskeletal: normal ROM, no deformity, no swelling. No pitting edema noted. GI: No obvious distention soft nontender nondistended no guarding rebounding or rigidity Neurological: A&O moves all extremities equal strength and symmetry Psychiatric: Cooperative and appropriate Medical Decision Making MEDICAL DECISION MAKING Number and Complexity of Problems Differential Diagnosis: [] [facility] Data External documents reviewed: [] My EKG interpretation: [] My CT interpretation: [] My X-ray interpretation: [] My Ultrasound interpretation: [] Decision rules/scores evaluated: [] Discussed with: [] Treatment and Disposition ED Course: 28-year-old female reports emerged department with complaints of feeling swollen. She states that she feels like she is retaining water. Exam of the patient is completely benign. No acute findings. Discussed that she did recently take steroids, which may have her have this feeling. She was understanding with this. We did do lab work. Lab work is completely benign. No acute changes. Discussed with the patient. Discussed return precautions. Follow-up with your primary care provider in 3 to 5 days. If symptoms worsen, do not improve, or new symptoms arise please report back to emergency department for further evaluation. The patient was understanding and agreeable to plan moving forward. Shared decision making: [] Code status: [] Assessment/Plan Encounter for medical screening examination (Z13.9: Encounter for screening, unspecified) Orders: B-Type Natriuretic Peptide Basic Metabolic Panel Beta hCG Qual CBC w/ Auto Diff eGFR Disposition Plan Patient Discharge Condition Stable Discharge Disposition To home Discharge Prescription List Prescriptions No active prescription medications Follow-up With When Contact Information BRYCE WISE In 3 days 12/26/2023 [place]T [address] [place] [address] [phone] Business (1) Additional Instructions: Call Dr for diagnosis based follow up Patient Education Medical Screening Exam Attestation Patient seen and evaluated by the physician customer assistant. Attending physician was present in the emergency department and supervised care. This visit was performed by both the physician and an APC. I performed all aspects of the MDM as documented. This report was transcribed using voice recognition software. Every effort was made to ensure accuracy, however, inadvertently computerized pattern and chain maker mistakes may be present. Appropriate healthcare PPE was used in evaluating this patient. The patient was placed in a mask. The healthcare provider was wearing mask, gloves, and utilizing proper hand hygiene. All equipment was properly cleansed. I performed a substantive part of the MDM during the patient?s E/M visit. I personally made or approved the documented management plan and acknowledge its risk of complications. (Independent Interpretation) My (EKG/X-Ray/US/CT as applicable) interpretation as above. (Discussion) Management/test interpretation discussed with APC. Problem List/Past Medical History Ongoing No qualifying data Historical Fibromyalgia Procedure/Surgical History None. Medications Inpatient No active inpatient medications Home No active home medications Allergies No Known Allergies Social History Alcohol - De (more content not included)... Normal [facility] Comment on above: Result Comment: Elec tronically Signed By: Juan Manuel Araujo PA-C\.br\Date and Time Signed: 12/23/23 22:10 EDT\.br\Electronically Co-Signed By: Rickie Connelly DO.br\Date and Time Co-Signed: 12/23/23 22:32 EDT ED Patient Summaryon 07-27-2 024 ED Patient Summary ED Patient Summary [place] [id number] Patient Discharge Instructions Person Information Name: SUSSY CRANE Age: 28 Years Arrival Date: 12/23/2023 19:09:46 Discharge Diagnosis: Encounter for medical screening examination Primary Care Physician: BRYCE WISE II Provider Information Primary Provider: Rickie Connelly DO Advanced Leveler Helper:None The exam and treatment you received in the Emergency Department were for an urgent problem and are not intended as complete care. It is important that you follow up with a doctor, nurse practitioner, or physician?s customer assistant for ongoing care. If your symptoms become worse or you do not improve as expected and you are unable to reach your usual health care provider, you should return to the Emergency Department. We are available 24 hours a day. SUSSY CRANE has been given the following list of patient education materials, prescriptions and follow-up instructions: Follow-up Instructions: With: Address: When: BRYCE WISE [address] [place], [place] [phone] Business (1) In 3 days 12/26/2023 Comments: Call Dr for diagnosis based follow up In the event that this physician does not participate in your insurance network, please consult with your insurance company to find a nearby participating provider. Patient Education Materials: Medical Screening Exam A MESSAGE TO ALL PATIENTS REGARDING OPIOIDS PRESCRIPTION OPIOIDS: WHAT YOU NEED TO KNOW Prescription opioids can be used to help relieve [id number] pain and are often prescribed following a surgery or injury, or for certain health conditions. These medications can be an important part of the treatment but also come with serious risks. It is important to work with your healthcare provider to make sure you are getting the safest, most effective care. WHAT ARE THE RISKS AND SIDE EFFECTS OF OPIOID USE? Prescription opioids carry serious risks of addiction and overdose, especially with prolonged use. An opioid overdose, often marked by slowed breathing, can cause sudden . The use of prescription opioids can have a number of side effects as well, even when taken as directed: ? Tolerance?meaning you might need to take more of the medication for the same pain relief ? Physical dependence?meaning you have symptoms of withdrawal when a medication is stopped ? Increased sensitivity to pain ? Constipation ? Nausea, vomiting, and dry mouth ? Sleepiness and dizziness ? Confusion ? Depression ? Low levels of testosterone that can result in lower sex drive, energy, and strength ? Itching and sweating RISKS ARE GREATER WITH: ? History of drug misuse, substance use disorder, or overdose ? Mental health conditions (such as depression or anxiety) ? Sleep apnea ? Older age (65 years and older) ? Avoid alcohol while taking prescription opioids. Also, unless specifically advised by your health care provider, medications to avoid include: ? Benzodiazepines (such as Xanax or Valium) ? Muscle relaxants (such as Soma or Flexeril) ? Hypnotics (such as Ambien or Lunesta) ? Other prescription opioids KNOW YOUR OPTIONS Talk to your health care provider about ways to manage your pain that don?t involve prescription opioids. Some of these options may actually work better and have fewer risks and side effects. Options may include: ? Pain relievers such as acetaminophen, ibuprofen, and naproxen ? Some medication that are also used for depression or seizures ? Physical therapy and exercise ? Cognitive behavioral therapy, a psychological, goal-directed approach, in which patients learn how to modify physical, behavioral, and emotional triggers of pain and stress. IF YOU ARE PRESCRIBED OPIOIDS FOR PAIN: ? Never take opioids in greater amounts or more often than prescribed. ? Follow up with your primary health care provider. o Work together to create a plan on how to manage your pain. o Talk about ways to help manage your pain that don?t involve prescription opioids. o Talk about any and all concerns and side effects. ? Help prevent misuse and abuse o Never sell or share prescription opioids. o Never use another person?s prescription opioids. ? Store prescription opioids in a secure place and out of reach of others (this may include visitors, children, friends, and family). ? Safely dispose of unused prescription opioids: Find your community drug take-back program or your pharmacy mail-back program, or flush them down the toilet, following guidance from the Food and Drug Administration (www.fda.gov/Drugs/Resource sForYou). ? Visit www.cdc.gov/drugoverdose to learn about the risks of opioids abuse and overdose. ? If you believe you may be struggling with addiction, tell your health care pr (more content not included)... Normal [facility] HEMATOLOGYOrdered By: SYSTEM SYSTEM on 12-23-2023 Monocytes/100 WBC (Bld) 6.6 % Normal 4.0 - 14.0 % Remisol Heme SEROLOGYOrdered By: Melquiades Knox on 12-23-2023 Beta HCG ( test) Ql Negative (12/23/23 8:00 PM) Normal [facility] [place] [facility] eGFROrdered By: Melquiades Yarbrough on on 12-23-2023 eGFR 104 mL/min/1.73 m2 Normal >=59mL/mi n/1 .73 m2 Remisol Chem Comment on above: Order Comment: Order added by Discern Expert. Performed By: #### 1 [id number] #### [facility] [address] [place] [address] POCT UA Automated manually r esultedon 11-06-2023 Appearance (U) Clear Clear [facility] Work Phone: [phone] Glucose Test strip (U) [Mass/Vol] Negative NEGATIVE mg/dl [facility] Work Phone: [phone] Hemoglobin Ql (U) TRACE-Intact Abnormal NEGATIVE [facility] Work Phone: [phone] Interpretation and review of laboratory results Abnormal [facility] Work Phone: [phone] Leukocyte esterase Test strip Ql (U) Negative NEGATIVE [facility] Work Phone: [phone] Nitrite Ql (U) Negative NEGATIVE [facility] Work Phone: [phone] pH (U) 5.5 [pH] No Reference Range Established [facility] Work Phone: [phone] POC Bilirubin, Urine Negative NEGATIVE [facility] Work Phone: [phone] POC Color, Urine Yellow Straw, Yellow, Light-Yellow [facility] Work Phone: [phone] POC Ketones, Urine Negative NEGATIVE mg/dl [facility] Work Phone: [phone] POC Protein, Urine Negative NEGATIVE, 30 (1+) mg/dl [facility] Work Phone: POC Specific Vidor, Urine 1.025 1.005 - 1.035 [facility] Work Phone: POC Urobilinogen, Urine 0.2 0.2, 1.0 EU/DL [facility] Work Phone: [facility] Work Phone: CNTHERAPYon 09-20-2023 CNTHERAPY OT/PT/Speech Visit ( TAMMYPTRM) SUSSY CRANE ([id number]) 1995 F Date Time Provider Department 09/20/23 3:15 PM LETI DOMÍNGUEZ Date Time Provider Department [place] 09/20/2023 3:15 PM [id number] DOMÍNGUEZ Reason for Visit: Physical Therapy [503] PT Discharge [752] Primary Visit Diagnosis:Pain in joint of right shoulder [M25.511] Other Visit Diagnosis:Posture imbalance [R29.3] Allergies As of Date: 09/20/2023 Noted Allergy Reaction COBALT 03/29/2017 2 - Rash Comments: Other reaction(s): (Rash) or (C/O a rash) MORPHINE 11/22/2021 9 - Itching NICKEL 03/29/2017 2 - Rash Comments: Other reaction(s): (Rash) or (C/O a rash) Date Reviewed: 08/08/2023 Reviewed by: Daniel Sena DO - Fully Assessed Prescriptions as of 09/20/2023 - clobetasol (TEMOVATE) 0.05 % cream Apply to affected area two times a day. - cholecalciferol (VITAMIN D) 1,000 unit tab tablet Take 1 tablet by mouth once daily. - nitroglycerin (NITRO-BID) 2 % oint ointment Apply 1 g as directed twice daily. - Naproxen SR (EC-NAPROSYN) 500 mg EC tablet Take 500 mg by mouth twice daily as needed (pain). - tiZANidine HCl 2 mg capsule Take 2 mg by mouth three times daily as needed. - triamcinolone acetonide (KENALOG) 0.5 % cream Apply 1 application to affected area three times daily as needed (rash). Normal [facility] CNTHERAPYon 08-29-2023 CNTHERAPY OT/PT/Speech Visit ( TAMMYPTRM) SUSSY CRANE ([id number]) 1995 F Date Time Provider Department 08/29/23 2:15 PM LETI DOMÍNGUEZ Date Time Provider Department [place] 08/29/2023 2:15 PM [id number] DOMÍNGUEZ Reason for Visit: Physical Therapy [503] Primary Visit Diagnosis:Pain in joint of right shoulder [M25.511] Other Visit Diagnoses:Shoulder weakness [R29.898] Posture imbalance [R29.3] Decreased range of motion of right shoulder [M25.611] Allergies As of Date: 08/29/2023 Noted Allergy Reaction COBALT 03/29/2017 2 - Rash Comments: Other reaction(s): (Rash) or (C/O a rash) MORPHINE 11/22/2021 9 - Itching NICKEL 03/29/2017 2 - Rash Comments: Other reaction(s): (Rash) or (C/O a rash) Date Reviewed: 08/08/2023 Reviewed by: Daniel Sena DO - Fully Assessed Prescriptions as of 08/29/2023 - clobetasol (TEMOVATE) 0.05 % cream Apply to affected area two times a day. - cholecalciferol (VITAMIN D) 1,000 unit tab tablet Take 1 tablet by mouth once daily. - nitroglycerin (NITRO-BID) 2 % oint ointment Apply 1 g as directed twice daily. - Naproxen SR (EC-NAPROSYN) 500 mg EC tablet Take 500 mg by mouth twice daily as needed (pain). - tiZANidine HCl 2 mg capsule Take 2 mg by mouth three times daily as needed. - triamcinolone acetonide (KENALOG) 0.5 % cream Apply 1 application to affected area three times daily as needed (rash). Normal [facility] [id number] 08-08-2023 [id number] [facility] ID: [id number] Author: LETI DOMÍNGUEZ PT Service: ? Author Type: Physical Therapist Type: [id number] Filed: 08/08/2023 10:34 Note Text: [facility] Physical Therapy Plan of Care Certification Patient Name: Sussy Crane : 1995 CC #: [id number] Date: 08/08/2023 To: Daniel Sena DO From Therapist: Leti Domínguez PT RE: Patient Certification/ Recertification Your review, approval and electronic signature are required in order to comply with Payor: [facility] MEDICAID / Plan: [facility] MEDICAID / Product Type: Medicaid / regulations. The identified Physical Therapy PLAN OF CARE for the patient is as follows: M25.511 Pain in joint of right shoulder (primary encounter diagnosis) R29.898 Shoulder weakness R29.3 Posture imbalance M25.611 Decreased range of motion of right shoulder PLAN OF CARE: Assessment: Sussy Crane presents with chief complaint of right shoulder pain that interferes with physical activities, recreational activities, lifting, heavy exertion, sleeping, reaching behind back, reaching overhead, use hand with arm at shoulder level, pulling, pushing, carrying . She presents with impairments in ADL's, joint mobility, patient reported outcome measures, posture, range of motion, strength, and symptom management. PROMIS? (Patient-Reported Outcomes Measurement Information System) scores were reviewed and identified as a rehabilitation concern. Prognosis for therapy is Fair due to: chronic nature of impairments . She will benefit from skilled therapy services to meet the goals established for this plan of care as noted below. Based on the patient's history, the components of the examination, the patient presentation, and required decision-making as described in this evaluation, this patient's evaluation falls into the low category of complexity as described by AMA CPT codes. Patient can benefit from skilled care to address patient's impairments and improve their function. Goals for Episode of Care: created on 08/08/23 through 10/03/23 Patient reported outcome of physical function and self-efficacy will increase T-score by a minimum 5 points. Cobb in home exercise program. Patient will decrease pain rating by 2 points to meet minimal clinical important difference for numeric pain rating scale. Patient will increase active ROM of right shoulder to 150 degrees elevation, 65 degrees external rotation and 60 degrees extension to allow pt to to improve postural alignment and to improve performance of ADLs. Patient will demonstrate increase in right shoulder strength to at least 4+/5 during manual muscle testing in order to improve function for basic self-care tasks, home management tasks, leisure / recreation skills, and light functional tasks. Improve postural awareness. Patient will be able to correct postural deviations independently in order to allow for normal mechanics, to decrease current pain , and prevent future recurrence. Patient Goals: decrease right arm pain, more use of shoulder Planned Interventions, Frequency, and Duration: Current Frequency: 1x/week (start in 3 weeks) Duration: 8 weeks Total Number of Visits Planned: 5 Planned Treatment Interventions: Therapeutic exercise (63092), Neuromuscular re-education (55001), Manual therapy (35397), Therapeutic activities (78286), Self-[facility] [facility] management (07677), Gait Training (86068), Patient/Family/Caregiver Education, Body Mechanics Training, Functional training PLAN FOR NEXT VISIT: assess carry over of home program Patient demonstrates good understanding of plan of care and treatment. The above goals and plan of care were discussed and agreed upon by patient/family. For further details regarding this patient refer to the Physical Therapy electronically documented visit dated 08/08/2023. Provider Attestation I have reviewed the treatment plan for Sussy Crane, [facility] [id number] for the period of 08/08/23 -- 10/03/23, established on 08/08/2023. Signature certifies the need for therapy services. Normal [facility] CNOVon 08-08-2023 CNOV Office Visit (LOORRM ) SUSSY CRANE ([id number]) 1995 F Date Time Provider Department 08/08/23 10:00 AM DANIEL SENA LOORRM During your visit today, we recorded the following information about you: Daniel Sena, DO 08/08/2023 12:05 PM Signed Sussy Crane is here today at request of Dr. Alma Cavanaugh specifically for consultation of my opinion in regards to the chief complaint listed below. Correspondence will be shared today via the [employer] electronic health record or through regular mail, where applicable. CHIEF COMPLAINT: Sussy Crane is a 28 year old female who presents today for new evaluation of right shoulder. CONSULTATION NOTE Correspondence will be shared today via the [employer] electronic health record or through regular mail, where applicable. HISTORY OF PRESENT ILLNESS: PAIN EVALUATION 08/06/2023 2302 08/08/2023 0925 Pain Level: 5 5 Pain Location: Shoulder-Right Shoulder-Right Description: Aching;Burning;Contraction; Cramping;Dull;Numbness;Pres sure;Radiating;Sharp; Shooting;Sore;Spasm;Stabbin g;Stiffness;Throbbing Aching;Burning;Sharp;Sore;S tabbing;Tightness;Stiffness Duration Amount of Time: -- 10 Duration Units: Days Years Frequency: Continuous Continuous Intervention/Comfort measure: Medication;Reposition;Relax ation;Heat Medication;Cold;Heat;Splint ing I personally reviewed previous notes by the referring physician regarding this complaint. SOCIAL HISTORY: Tobacco Use: Never PHYSICAL EXAMINATION: Decreased AROM of the right shoulder CLINICAL IMPRESSION / ASSESSMENT: (M25.511, G89.29) Chronic right shoulder pain (primary encounter diagnosis) RECOMMENDATION / PLAN: Brisement procedure performed as detailed below in PROCEDURE NOTE Follow-up in 1 month Large Joint Arthro/Inj: R glenohumeral Informed Consent Consent Obtained: Verbal [place] Protocol A moment to CARE was completed. SIGN IN Personnel directly involved with the procedure wore the appropriate PPE. Special Equipment: N/A Patient/Surrogate Stated/Verified: Patient name, Date of , Relevant allergies and Intended procedure TIME OUT Intended patient and procedure match the source document(s). Relevant labs, photos, and/or imaging studies have been reviewed. Correct side/site marked and visible. Medications required for procedure verified. No fire risk assessment and interventions applicable. No implant(s) inserted. 08/08/2023 12:04 PM The procedure site was prepped in the usual sterile fashion. Site: R glenohumeral Details:Musculoskeletal ultrasound was utilized to successfully localize placement of the injection needle at the appropriate site. Ultrasound images demonstrating local vasculature and demonstrating injection of solution were saved. Medications: 80 mg triamcinolone acetonide 40 mg/mL Anesthetics: 8 mL lidocaine (PF) 10 mg/mL (1 %); 4 mL ROPivacaine (PF) 5 mg/mL (0.5 %); 5 mL sterile water Outcome: Tolerated well, no immediate complications Post-injection instructions were reviewed with the patient and the patient voiced understanding of these instructions. SIGN OUT All instruments, equipment, possible retained foreign bodies accounted for. Nerve Block: upper extremity Informed Consent Consent Obtained: Verbal [place] Protocol A moment to CARE was completed. SIGN IN Personnel directly involved with the procedure wore the appropriate PPE. Special Equipment: N/A Patient/Surrogate Stated/Verified: Patient name, Date of , Intended procedure and Relevant allergies TIME OUT Intended patient and procedure match the source document(s). Relevant labs, photos, and/or imaging studies have been reviewed. Correct side/site marked and visible. Medications required for procedure verified. No fire risk assessment and interventions applicable. No implant(s) inserted. 08/08/2023 12:04 PM Body area: upper extremity Nerve: suprascapular Laterality: right Patient position: sitting Location technique: ultrasound guidance Medications: 5 mL lidocaine (PF) 10 mg/mL (1 %) SIGN OUT All instruments, equipment, possible retained foreign bodies accounted for. Daniel Sena DO Referring Provider: DANIEL SENA [[id number]] Allergies As of Date: 08/08/2023 Noted Allergy Reaction COBALT 03/29/2017 2 - Rash Comments: Other reaction(s): (Rash) or (C/O a rash) MORPHINE 11/22/2021 9 - Itching NICKEL 03/29/2017 2 - Rash Comments: Other reaction(s): (Rash) or (C/O a rash) Date Reviewed: 08/08/2023 Reviewed by: Daniel Sena DO - Fully Assessed Reason for Visit: New [508743] Pain (Shoulder Pain) [1343] Primary Visit Diagnosis:Chronic right shoulder pain [M25.511, G89.29] Order(s): SHOULDER-INJECTION RT (POC) YANIRA USE ONLY [5934957] Order #: [id number]. #:[id number]: 1 Large Joint Arthro/Inj: R glenohumeral [SXT770] Order #: [id number] (more content not included)... [facility] ([id number]) 1995 F Date Time Provider Department 08/08/23 DANIEL SENA INTMLN During your visit today, we recorded the following information about you: Santiago Amaya 08/08/2023 8:10 AM Signed Received a call from main appointment center. Patient has questions on today's appointment. Patient hung up on appointment center. Please give a call back. She needs to know if she needs a helper/driver and what the appointment is exactly. [phone] Marium Brewer MA 08/08/2023 9:39 AM Signed Called this patient twice and her voice mail doesn't state her name so I couldn't leave her a message. Allergies As of Date: 08/08/2023 Noted Allergy Reaction COBALT 03/29/2017 2 - Rash Comments: Other reaction(s): (Rash) or (C/O a rash) MORPHINE 11/22/2021 9 - Itching NICKEL 03/29/2017 2 - Rash Comments: Other reaction(s): (Rash) or (C/O a rash) Date Reviewed: 08/08/2023 Reviewed by: Marium Brewer MA - Fully Assessed Reason for Visit: Appointment [186] Prescriptions as of 08/08/2023 - clobetasol (TEMOVATE) 0.05 % cream Apply to affected area two times a day. - cholecalciferol (VITAMIN D) 1,000 unit tab tablet Take 1 tablet by mouth once daily. - nitroglycerin (NITRO-BID) 2 % oint ointment Apply 1 g as directed twice daily. - Naproxen SR (EC-NAPROSYN) 500 mg EC tablet Take 500 mg by mouth twice daily as needed (pain). - tiZANidine HCl 2 mg capsule Take 2 mg by mouth three times daily as needed. - triamcinolone acetonide (KENALOG) 0.5 % cream Apply 1 application to affected area three times daily as needed (rash). Problem List As Of Date 08/08/2023 Noted Resolved Labral tear of shoulder [S43.439A] 04/06/2020 Encounter Status:Closed by SANTIAGO AMAYA on 08/08/23 [facility] CNTHERAPYon 08-08-2023 CNTHERAPY OT/PT/Speech Visit ( LOPTRM) SUSSY CRANE ([id number]) 1995 F Date Time Provider Department 08/08/23 9:40 AM CANDIDALETI QUIÑONES MAICOL Date Time Provider Department [place] 08/08/2023 9:40 AM [id number], MARK MAICOL Daja Astudillo Reason for Visit: PT Eval [747] Patient Education [91] Physical Therapy [503] Primary Visit Diagnosis:Pain in joint of right shoulder [M25.511] Other Visit Diagnoses:Shoulder weakness [R29.898] Posture imbalance [R29.3] Decreased range of motion of right shoulder [M25.611] Allergies As of Date: 08/08/2023 Noted Allergy Reaction COBALT 03/29/2017 2 - Rash Comments: Other reaction(s): (Rash) or (C/O a rash) MORPHINE 11/22/2021 9 - Itching NICKEL 03/29/2017 2 - Rash Comments: Other reaction(s): (Rash) or (C/O a rash) Date Reviewed: 08/08/2023 Reviewed by: Daniel Sena DO - Fully Assessed Prescriptions as of 08/29/2023 - clobetasol (TEMOVATE) 0.05 % cream Apply to affected area two times a day. - cholecalciferol (VITAMIN D) 1,000 unit tab tablet Take 1 tablet by mouth once daily. - nitroglycerin (NITRO-BID) 2 % oint ointment Apply 1 g as directed twice daily. - Naproxen SR (EC-NAPROSYN) 500 mg EC tablet Take 500 mg by mouth twice daily as needed (pain). - tiZANidine HCl 2 mg capsule Take 2 mg by mouth three times daily as needed. - triamcinolone acetonide (KENALOG) 0.5 % cream Apply 1 application to affected area three times daily as needed (rash). Line Installer: Therapy (PT/OT/Speech/Resp) ID: [id number] 08/08/2023 9:43 AM Author: LETI DOMÍNGUEZ Signed by LETI DOMÍNGUEZ PT on 08/08/2023 at 9:43 AM Document text: Program_ID:[id number] Access Code: [email or web address] URL: [email or web address] Date: 08-08-2023 Prepared By: Leti Domínguez Program Notes Exercises - Supine Shoulder Flexion Extension AAROM with Dowel - 2-3 x daily - 7 x weekly - 2-3 sets - 10-15 reps - Standing Shoulder Extension with Dowel - 2-3 x daily - 7 x weekly - 2-3 sets - 10-15 reps - Standing Shoulder External Rotation AAROM with Dowel - 2-3 x daily - 7 x weekly - 2-3 sets - 10-15 reps - Shoulder Scaption AAROM with Dowel - 2-3 x daily - 7 x weekly - 2-3 sets - 10-15 reps - Seated Shoulder Circles - 2-3 x daily - 7 x weekly - 2-3 sets - 10-15 reps Normal [facility] THERAPY NTon 08-08-2023 THERAPY NT HNO ID: [id number] Author: LETI DOMÍNGUEZ PT Service: ? Author Type: Physical Therapist Type: Therapy (PT/OT/Speech/Resp) Filed: 08/08/2023 09:43 Note Text: Program_ID:[id number] Access Code: [email or web address] URL: [email or web address] Date: 08-08-2023 Prepared By: Leti Domínguez Program Notes Exercises - Supine Shoulder Flexion Extension AAROM with Dowel - 2-3 x daily - 7 x weekly - 2-3 sets - 10-15 reps - Standing Shoulder Extension with Dowel - 2-3 x daily - 7 x weekly - 2-3 sets - 10-15 reps - Standing Shoulder External Rotation AAROM with Dowel - 2-3 x daily - 7 x weekly - 2-3 sets - 10-15 reps - Shoulder Scaption AAROM with Dowel - 2-3 x daily - 7 x weekly - 2-3 sets - 10-15 reps - Seated Shoulder Circles - 2-3 x daily - 7 x weekly - 2-3 sets - 10-15 reps Normal [facility] SHOULDER-INJECTION RT (PO C) YANIRA USE ONLYon 08-08-2023 [facility] CNOVon 08-01-2023 CNOV Office Visit (JOURDAN ) SUSSY CRANE ([id number]) 1995 F Date Time Provider Department 08/01/23 12:00 PM CATHY MORAN During your visit today, we recorded the following information about you: Pulse Blood pressure Weight 64/minute 121/78 80.9 kg Cathy Moran MD 08/01/2023 2:09 PM Signed [facility] Date of Service: 08/01/2023 Patient: Sussy Crane Medical Record: [id number] Primary Care Physician: No primary care provider on file. Referring Provider: [place], [address] [facility] [address] Last Rheumatology visit: 06/28/2022 (with Cathy Moran) Chief complaint: Recheck (All over body flare up. Pt c/o ankle and knees that are swelling. Pt says top of her feet are cramping and tightness type of pain, also with her wrists too. Patient also c/o pain in both hips. Pain scale 7. Has been going on for a while. Pain comes and goes. Pain is also in her elbows, and shoulders, and whole back pain. Sciatica nerve pain, down her legs to her heel. Pt also c/o muscle pain in her chest too.) History of Present Illness Sussy Crane is a 28 year old White female with medical history of preeclampisia, cholesystectomy, diverticulosis, presents on 08/01/2023 for an in-person visit for evaluation of Recheck (All over body flare up. Pt c/o ankle and knees that are swelling. Pt says top of her feet are cramping and tightness type of pain, also with her wrists too. Patient also c/o pain in both hips. Pain scale 7. Has been going on for a while. Pain comes and goes. Pain is also in her elbows, and shoulders, and whole back pain. Sciatica nerve pain, down her legs to her heel. Pt also c/o muscle pain in her chest too.). Sussy is both RF - 9 (03/09/2022) and CCP - 13.5 (03/09/2022) negative. Her most recent DUNG was negative (03/09/2022). HISTORY OF PRESENT ILLNESS Seen as new patient in 02/2022, as per HPI Patient reports pain over wrists, knees, ankles for long time. Bilateral hip pain started about 20 months ago since her . Reports right shoulder pain since she had labrum tears in right shoulder yrs ago She also reports swelling over the whole hands, sometimes swelling affects only some fingers and toes associated with redness Pain is wrose with activities MS- few min Also reports Raynayds with fingers turning white on exposure to cold but never had digital ulcers She also feels tired and does not feel fresh in the morning Also has back pain on and off worse with activities Achillis tendinitis since 7 th grade Patient also reports skin rash over abdomen, was seen by utility operator yarn, had skin biopsy, there was question of psoriasis as well as infection, she reports that dermatology is not sure about the skin rash and recommended rheumatology evaluation Denies history of inflammatory eye disease, inflammatory bowel disease, psoriasis, dysentery, had Chlamydia in 2020, treated, denies gonorrhea or other STDs, history of kidney disease/biopsy, nephrolithiasis, peptic ulcer disease, tuberculosis, miscarriages, blood clots, malignancy, pleural/pericardial effusion, CHF, CAD, CVA. During initial evaluation she did not have synovitis however she had multiple tenderness over joints as well as soft tissues. Due to diffuse body pain, fatigue, nonrestorative sleep and lack of synovitis, she was deemed to have chronic pain syndrome. Blood test including DUNG, anti-BIBI, dsDNA, RF/CCP was negative. Sed rate and CRP were normal. Radiograph hands and feet did not show any erosions. Radiograph SI joints showed degenerative changes, no evidence of sacroiliitis. Since her skin biopsy was inconclusive, recommended repeat skin biopsy. 05/2022-she reported hand pain associated with Raynaud's. Did not have synovitis. 03/2023 RF/CCP negative Sed rate 26, CRP normal Uric acid 6 CMP unremarkable CBC unremarkable except hemoglobin 11.7 dsDNA negative Vitamin D 15 Reviewed in care everywhere Sed rate, RF, C3, C4 normal in 01/2021, DUNG negative Skin biopsy 01/2021- FINAL DIAGNOSIS: A. 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 Similar appearance of a Sorrento complex. There truncation of the superior labrum favored to be a sequela of interval biceps tenodesis. There is contrast signal intensity at the base of the posterosuperior labrum which may reflect a chondrolabral junction tear (series 5, image 15). This is more pronounced than seen on the prior examination. Radiograph rig (more content not included)... Normal [facility] CNOVon 07-18-2023 CNOV Office Visit (ORAVON ) SUSSY CRANE ([id number]) 1995 F Date Time Provider Department 07/18/23 1:45 PM ALMA CAVANAUGH During your visit today, we recorded the following information about you: Alma Cavanaugh MD 07/18/2023 2:23 PM Signed MD Garett Monroe Michael, MD 07/18/2023 2:23 PM Signed NEW ENCOUNTER This patient is being seen at the request of Self and the progress note from this visit will be communicated via shared medical record Chief Complaint: right Shoulder 2 Prior surgeries for Right shoulder: April 2018 - Right Shoulder - SLAP Repair - [facility] April 2021 - Right Shoulder - SLAP Revision Repair AND Bicep Tenodesis (pt has button ) History: Patient is a 28 year old female; she denies an acute injury event - Pt states the Right shoulder has never felt stable after either surgery. Pt states approx 2012 - fell off of a horse, shoulder AND back pain - pt fell off of horse landing on back and right shoulder - was wearing helmet. Now pt has Intermit neck / back pain - low to moderate score 3-5 Should pain has been constant since fall from horse. Pt states instability - Rt shoulder - feels like shoulder pops out/ forward. Date of injury/duration of pain: 11 years Location: Right Shoulder Intensity: Severe Quality: Sore / Aching/ Fire tingling Job Related: No Symptoms with the following activities: Increased activity, Sleep, and over use The following things help the symptoms: rest reports neck pain - intermittent denies numbness / tingling - unless pt sleeps with arm out-stretched reports night pain reports instability Patient is right handed Social History: Tobacco Use: Never Work: [employer] Exercise: Horse Riding Patient History No past medical history on file. No past surgical history on file. cholecalciferol (VITAMIN D) 1,000 unit tab tablet Take 1 tablet by mouth once daily. nitroglycerin (NITRO-BID) 2 % oint ointment Apply 1 g as directed twice daily. Naproxen SR (EC-NAPROSYN) 500 mg EC tablet Take 500 mg by mouth twice daily as needed (pain). tiZANidine HCl 2 mg capsule Take 2 mg by mouth three times daily as needed. triamcinolone acetonide (KENALOG) 0.5 % cream Apply 1 application to affected area three times daily as needed (rash). Allergies: ALLERGIES Allergen Reactions Greenwald Rash Other reaction(s): (Rash) or (C/O a rash) Morphine Itching Nickel Rash Other reaction(s): (Rash) or (C/O a rash) REVIEW OF SYSTEMS: CONSTITUTIONAL: Denies fever and weight loss. EYES: Denies acute vision changes. ENT: Denies hearing changes or difficulty swallowing. CARDIAC: Denies chest pain or edema. RESPIRATORY: Denies dyspnea, cough or wheeze. GASTROINTESTINAL: Denies abdominal pain, nausea, vomiting. MUSCULOSKELETAL: See HPI. SKIN: Denies any recent rash or lesion. NEUROLOGICAL: Denies numbness or focal weakness. PSYCHIATRIC: No history of psychiatric symptoms or problems. ENDOCRINE: Denies current diagnosis of diabetes. HEMATOLOGY: Denies episodes of easy bleeding. Allergies, medications, past surgical history and past medical history were reviewed per this encounter. Physical Examination: Region: Shoulder General Appearance: Appears healthy, well-nourished, no deformities. Neck/Spine/Station/Gait: Full pain free motion of the neck, no tenderness to palpation Left Exam: AROM: 170 degrees of forward elevation, 60 degrees of external rotation, T6 internal rotation PROM: AB ER is 90, AB IR is 90 Point Tenderness location: none Swelling/Effusion: none Stability: normal Muscle Strength: normal Sensation:normal Reflexes:normal Skin: normal Pulses: normal Special Tests: None Right Exam: AROM: 120 degrees of forward elevation, 30 degrees of external rotation, T6 PROM: AB ER to 80, AB IR to 80 Point Tenderness location:anterior shoulder Swelling/Effusion: none Stability: Clunk with anterior posterior load shift consistent with grade 2 Muscle Strength: normal Sensation:normal Reflexes:normal Skin: normal Pulses: normal Special Tests: None Images have been personally reviewed by me and discussed with patient. Abnormal, see below. No images provided. 07/10/2023 3:51 PM EST Interpreted By: Fermin Stover, STUDY: MR arthrogram of the right shoulder; 07/10/2023 2:23 pm INDICATION: Signs/Symptoms:pain. COMPARISON: 06/12/2023, 11/13/2020. ACCESSION NUMBER(S): [id number] ORDERING CLINICIAN: RADU FISHER TECHNIQUE: MR imaging of the right shoulder was obtained following the intra-articular administration of dilute gadolinium contrast material. FINDINGS: ROTATOR CUFF TENDONS: The supraspinatus, infraspinatus, and teres minor tendons are intact. There is no edema or fatty atrophy of the associated rotator cuff musculature. Evaluation of the subscapularis ten (more content not included)... Normal [facility] MR ARTHROGRAM SHOULDER RIGHT on 07-10-2023 MR ARTHROGRAM SHOULDER RIGHT Interpreted By: Fermin Stover, STUDY: MR arthrogram of the right shoulder; 07/10/2023 2:23 pm INDICATION: Signs/Symptoms:pain. COMPARISON: 06/12/2023, 11/13/2020. ACCESSION NUMBER(S): [id number] ORDERING CLINICIAN: RADU FISHER TECHNIQUE: MR imaging of the right shoulder was obtained following the intra-articular administration of dilute gadolinium contrast material. FINDINGS: ROTATOR CUFF TENDONS: The supraspinatus, infraspinatus, and teres minor tendons are intact. There is no edema or fatty atrophy of the associated rotator cuff musculature. Evaluation of the subscapularis tendon and muscle is limited due to anterior arthrographic approach, but no gross abnormality is seen. BICEPS TENDON AND ROTATOR INTERVAL: Long head biceps tenodesis. JOINTS/LABRUM: Contrast is present within the glenohumeral joint. There is no evidence of bursal communication of contrast material to indicate full-thickness rotator cuff tear. There are postsurgical changes status post prior labral repair with similar appearance of anterosuperior labral absence of thickening of the middle glenohumeral ligament. There is truncation of the superior labrum, more pronounced compared to the prior. The posteroinferior labrum is intact. There is mild imbibition of contrast signal intensity at the base of the posterosuperior labrum at the chondrolabral junction. No linear anteroinferior labral tear is. Mild scarring is seen in the region of the anteroinferior labrum. Evaluation of the glenohumeral articulation demonstrates no articular cartilage defects. The middle and inferior glenohumeral ligaments are intact. The superior glenohumeral ligament is grossly intact. The acromioclavicular joint is unremarkable. OSSEOUS STRUCTURES: No focal marrow replacing lesions are identified. There is no fracture. SOFT TISSUES: Contrast material is present within the anterior soft tissues of the shoulder related to anterior arthrographic approach. There is no muscle atrophy or tear. IMPRESSION: Findings of prior labral repair and biceps tenodesis. Similar appearance of a Francesca complex. There truncation of the superior labrum favored to be a sequela of interval biceps tenodesis. There is contrast signal intensity at the base of the posterosuperior labrum which may reflect a chondrolabral junction tear (series 5, image 15). This is more pronounced than seen on the prior examination. MACRO: None Signed by: Fermin Stover 07/10/2023 3:51 PM Dictation workstation: [id number] [facility] Comment on above: Order Comment: renuka summers XR ARTHROGRAM SHOULDER RIGHT on 07-10-2023 XR ARTHROGRAM SHOULDER RIGHT Interpreted By: Ronak Richards, STUDY: XR ARTHROGRAM SHOULDER RIGHT; 07/10/2023 1:36 pm INDICATION: Signs/Symptoms:pain. COMPARISON: 11/13/2020. ACCESSION NUMBER(S): [id number] ORDERING CLINICIAN: RADU FISHER FINDINGS: The risks, benefits and alternatives of the procedure were discussed with the patient. The patient was given the chance to ask questions, and all were answered prior to proceeding. At this time, written informed consent was obtained. Time out was performed prior to the procedure to confirm patient identity and the appropriate procedure site. The patient was placed in the supine position on the fluoroscopic table and was prepped and draped in the usual sterile fashion. The right shoulder joint was localized under fluoroscopy. Local anesthesia was achieved with 2% lidocaine. Under fluoroscopic guidance a 22 gauge needle was inserted into the right shoulder joint. 3 ml of Omnipaque 300 contrast was injected to confirm intraarticular needle placement with fluoroscopy. 10 mL dilute gadolinium (0.1 millimoles gadolinium mixed with 20 mL normal saline) were injected into the right shoulder joint. The patient tolerated the procedure well and no immediate complication was noted. Fluoroscopy time: 21 seconds. Total images: 2. IMPRESSION: Successful fluoroscopic guided right shoulder pre MRI gadolinium arthrogram. MACRO: None. Signed by: Ronak Richards 07/10/2023 1:54 PM Dictation workstation: [id number] [facility] Comment on above: Order Comment: renuka summers Cyclic Citrullinated Peptide Ab, IgGon 07-07-2023 Cyclic Citrullinated Peptide Ab, IgG 1.4 U/mL Normal 0.0-7.0 [facility] Comment on above: Result Comment: Reference Range: <7.0 Negative 7.0-10.0 Equivocal >10.0 Positive Performed at [facility], [address] [place] [id number] . Bacterial vaginosison 2023 Bacterial vaginosis Ql (Vag fld) [Interp] TEDDY SCORE 2 Interpretation of the Teddy Score 0-3.....Normal vaginal microbiota 4-6.....Intermediate results 7-10....Bacterial vaginosis Yeast ABSENT Clue cells ABSENT Normal ABSENT [facility] Comment on above: Performed By: #### 6 [id number] #### ROSALINE Ho ([id number]) [facility] ([facility]) [address] [place] [id number] C. trachomatis and N. gonorr hoeae DNA RADHA+probe Nom (Unsp spec)on 07-06-2023 C. trachomatis rRNA RADHA+probe Ql (Unsp spec) Negative Normal Negative [facility] Comment on above: Order Comment: The A PTIMA Combo 2 assay is FDA-approved NAAT using target capture for the in vitro qualitative detection and differentiation of ribosomal RNA (rRNA) for Chlamydia trachomatis and Neisseria gonorrhoeae testing on clinician-collected endocervical, PreservCyt solution liquid Pap specimens, vaginal, throat, rectal, and male urethral swab specimens; patient-collected vaginal swab specimens, and female and male urine specimens from symptomatic and asymptomatic individuals. Samples from all other sites are not validated for this method. Performed By: #### 3 [id number] #### ROSALINE Ho ([id number]) [facility] ([facility]) [address] [place] [id number] N. gonorrhoeae DNA Probe+sig amp Ql (Unsp spec) Negative Normal Negative [facility] Comment on above: Order Comment: The A PTIMA Combo 2 assay is FDA-approved NAAT using target capture for the in vitro qualitative detection and differentiation of ribosomal RNA (rRNA) for Chlamydia trachomatis and Neisseria gonorrhoeae testing on clinician-collected endocervical, PreservCyt solution liquid Pap specimens, vaginal, throat, rectal, and male urethral swab specimens; patient-collected vaginal swab specimens, and female and male urine specimens from symptomatic and asymptomatic individuals. Samples from all other sites are not validated for this method. Performed By: #### 3 [id number] #### ROSALINE Ho ([id number]) [facility] ([facility]) [address] [place] [id number] Trichomonas vaginalis rRNAon 07-06-2023 T. vaginalis rRNA RADHA+probe Ql (Unsp spec) Negative Normal Negative, Invalid, TRICH neg [facility] Comment on above: Order Comment: The A PTIMA Trichomonas vaginalis assay is FDA-approved for testing on female endocervical swabs, vaginal swabs, and ThinPrep liquid pap samples. Performance characteristics for Trichomonas vaginalis on specific gbu-BOT-hrijzhha sample types (female and male urine and male urethral swabs) have been validated by [facility]. This laboratory is certified by CLIA to perform high complexity testing. Samples from all other sites are not validated for this method. Result Comment: Perf ormance characteristics for Trichomonas Vaginalis testing on urine samples has been validated by [facility]. Testing on this sample type is not FDA-approved, but such approval is not necessary. This laboratory is certified by CLIA to perform high complexity testing. Performed By: #### 4 6154-1 #### ROSALINE Ho ([id number]) [facility] ([facility]) [address] [place] [id number] XR SHOULDER RIGHT 2+ VIEWSon 06-12-2023 XR SHOULDER RIGHT 2+ VIEWS Interpreted By: Radu Fisher, STUDY: XR SHOULDER RIGHT 2+ VIEWS; ; 06/12/2023 4:03 pm INDICATION: Signs/Symptoms:pain. ACCESSION NUMBER(S): [id number] ORDERING CLINICIAN: RADU FISHER FINDINGS: AP axillary right shoulder shows a well-positioned right glenohumeral joint biceps tenodesis button remains stable and well-positioned on the proximal metaphysis of the humerus. The humeral joint space is maintained on both AP and axillary view Signed by: Radu Fisher 06/12/2023 4:19 PM Dictation workstation: [id number] [facility] Comment on above: Order Comment: Ap/ax il XR Shoulder - right 2 Viewso n 06-12-2023 Interpreted By: Radu Paul, STUDY: XR SHOULDER RIGHT 2+ VIEWS; ; 06/12/2023 4:03 pm INDICATION: Signs/Symptoms:pain. ACCESSION NUMBER(S): [id number] ORDERING CLINICIAN: RADU FISHER FINDINGS: AP axillary right shoulder shows a well-positioned right glenohumeral joint biceps tenodesis button remains stable and well-positioned on the proximal metaphysis of the humerus. The humeral joint space is maintained on both AP and axillary view Signed by: Radu Fisher 06/12/2023 4:19 PM Dictation workstation: [id number] [facility] Radu Fisher M D - 06/12/2023 Interpreted By: Radu Fishre, STUDY: XR SHOULDER RIGHT 2+ VIEWS; ; 06/12/2023 4:03 pm INDICATION: Signs/Symptoms:pain. ACCESSION NUMBER(S): [id number] ORDERING CLINICIAN: RADU FISHER FINDINGS: AP axillary right shoulder shows a well-positioned right glenohumeral joint biceps tenodesis button remains stable and well-positioned on the proximal metaphysis of the humerus. The humeral joint space is maintained on both AP and axillary view Signed by: Radu Fisher 06/12/2023 4:19 PM Dictation workstation: [id number] [facility] Work Phone: [facility] Work Phone: Radiology Study observation (narrative) [facility] Work Phone: Tobacco Screening.on 023 Adult depression screening assessment Yes [facility] Work Phone: Adult depression screening assessment No [facility] Work Phone: Fall risk assessment a) No falls within the last year [facility] Work Phone: Tobacco use status [facility] b) No [facility] Work Phone: Tobacco Screening. Yes [facility] Work Phone: Office Visit (Family Medicin e)on 01-16-2023 Follow-up visit Chief Complaint injection Adult Risk Screening Advance Care Planning discussed and documented in the medical record, patient did not wish or was not able to name a surrogate decision maker or provide an advance care plan. History of Present Illness Patient is here to talk about her right shoulder. She has had worsening pain and has not really been able to tolerate physical therapy was recommended for her to come and get an injection REVIEW OF SYSTEMS: 12 systems negative except for those mentioned in the HPI. PHYSICAL EXAMINATION: Constitutional: The patient is alert, in no acute distress. Eyes: Extraocular movements are intact. ENT: external ear canals patent Neck: no JVD. Heart: no JVD Lungs: Normal respiration without stridor or nasal flaring Psychiatric: Good judgment and insight. Normal affect and mood. Skin: no rashes or lesions MSK/neurologic: Cranials 2 through 12 grossly intact. Pain in the supraspinatus of the right shoulder. Limited flexion secondary to pain. Patient with oral consent for corticosteroid injection. Does state that she has a titanium button within the joint at some place. Acknowledges understanding of fever chills or inherent risks of injection even with cleaning and risk of infection. She wishes to continue. 40 mg Depo-Medrol [facility] number [address]-8 lot- [id number] expiration date 1 cc Marcaine 0.5% without epinephrine [facility] [id number] expiration date 03/2024 lot [id number] and 20mgKenalog [id number] lot [id number] 27-gauge 1 1/2 inch needle. Posterior inferior approach the right shoulder was utilized. The area is cleaned with alcohol anesthetized with ethyl chloride. Patient had immediate pain relief full range of motion no complications and a Band-Aid was placed. Assessment: per EMR Plan: Discussed follow-up with orthopedic surgery as well as continued physical therapy This dictation was created using Hairbobo dictation and may contain errors Active Problems Abnormal ultrasound of endometrium (793.5) (R93.5) Abnormal uterine bleeding (AUB) (626.9) (N93.9) Acid reflux (530.81) (K21.9) Acne vulgaris (706.1) (L70.0) Adhesive capsulitis of left shoulder (726.0) (M75.02) Allergic rhinitis, unspecified seasonality, unspecified trigger (477.9) (J30.9) Anal fissure (565.0) (K60.2) Anxiety and depression (300.00,311) (F41.9,F32.A) AOM (acute otitis media) (382.9) (H66.90) Back pain, thoracic (724.1) (M54.6) Biceps tendinitis (726.12) (M75.20) Bipolar 1 disorder, depressed, moderate (296.52) (F31.32) Blood in urine (599.70) (R31.9) Cellulitis (682.9) (L03.90) Cervical radiculopathy (723.4) (M54.12) Cervical strain (847.0) (S16.1XXA) Change in bowel habits (787.99) (R19.4) Chronic right shoulder pain (719.41,338.29) (M25.511,G89.29) Constipation, chronic (564.00) (K59.09) Contact hypersensitivity (692.9) (L23.9) Contraception management (V25.9) (Z30.9) Contusion of left elbow, initial encounter (923.11) (S50.02XA) Dysmenorrhea (625.3) (N94.6) Eczema (692.9) (L30.9) Encounter for emergency contraceptive counseling (V25.03) (Z30.09) Endometrial polyp (621.0) (N84.0) 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) Foot pain (729.5) (M79.673) Hematuria (599.70) (R31.9) Herpes simplex virus (HSV) infection (054.9) (B00.9) Hip flexor tightness (727.81) (M24.559) Hip pain, bilateral (719.45) (M25.551,M25.552) Hives of unknown origin (708.9) (L50.9) Impetigo (684) (L01.00) Intrinsic atopic dermatitis (691.8) (L20.84) Iron deficiency anemia due to chronic blood loss (280.0) (D50.0) Joint pain, hip (719.45) (M25.559) Labral tear of shoulder (840.8) (S43.439A) Low back pain with radiation (724.2) (M54.50) Lower abdominal pain (789.09) (R10.30) Nausea in adult (787.02) (R11.0) Neck pain (723.1) (M54.2) Never a smoker Non-recurrent acute suppurative otitis media of left ear without spontaneous rupture of tympanic membrane (382.00) (H66.002) Numbness and tingling (782.0) (R20.0,R20.2) Nummular eczematous dermatitis (692.9) (L30.0) Overweight with body mass index (BMI) of 29 to 29.9 in adult (278.02,V85.25) (E66.3,Z68.29) Pelvic pain in female (625.9) (R10.2) Polyarthralgia (719.49) (M25.50) Postoperative wound infection (998.59) (T81.49XA) Rash (782.1) (R21) Rash (782.1) (R21) Raynaud phenomenon (443.0) (I73.00) Recurrent UTI (599.0) (N39.0) Screen for STD (sexually transmitted disease) (V74.5) (Z11.3) Shingles (053.9) (B02.9) Shoulder impingement (719.81) (M25.819) Shoulder pain (719.41) (M25.519) Strain of shoulder, right, sequela (905.7) (S46.911S) Superior glenoid labrum lesion of right shoulder, subsequent encounter (V58.89,840.7) (S43.431D) Superior glenoid labrum lesion of shoulder, unspecified laterality, subsequent encounter (V58.89,840.7) (S43.439D) Surgery, elective (V50.9) (Z41.9) Surveillance for Depo-Provera contraception (V25.49) (Z30.42) Traumatic complete tear of right rotator cuff, olivera (more content not included)... Normal [place] Tobacco Screening.on 023 Adult depression screening assessment No [facility] Work Phone: Fall risk assessment a) No falls within the last year [facility] Work Phone: Tobacco use status [facility] b) No [facility] Work Phone: Office Visit (Family Medicin e)on 12-16-2022 Follow-up visit Diagnoses/Problems Strain of shoulder, right, sequela (905.7) (S46.911S) Superior glenoid labrum lesion of right shoulder, subsequent encounter (V58.89,840.7) (S43.431D) Overweight with body mass index (BMI) of 29 to 29.9 in adult (278.02,V85.25) (E66.3,Z68.29) Never a smoker Labral tear of shoulder (840.8) (S43.439A) Orders Labral tear of shoulder, Strain of shoulder, right, sequela, Superior glenoid labrum lesion of right shoulder, subsequent encounter Start: Ketorolac Tromethamine 10 MG Oral Tablet; TAKE 1 TABLET 3 TIMES DAILY NEEDED FOR PAIN Physical Therapy - General Referral Evaluation and Treatment Evaluate AND Treat Status: Hold For - Scheduling Requested for: [id number] Start: Methocarbamol 500 MG Oral Tablet; TAKE 1 TABLET 3 times daily PRN SocHx: Never a smoker Tobacco Use Screening; Status:Complete; Done: [id number] Chief Complaint shoulder pain - right, feels sensitive to the cold - x few months, getting weak pt said she might need Dr. Wise to write a note to court about her health Adult Risk Screening Advance Care Planning discussed and documented in the medical record, patient did not wish or was not able to name a surrogate decision maker or provide an advance care plan. History of Present Illness Patient is here to discuss her right shoulder. She is in substantial amount of pain and is unable to lift her son. She is also wanting to move out of the state secondary to the change in bariatric pressure causing increased pain., Barometric pressure is stable she has substantially less pain and at this point she had 2 shoulder surgeries and orthopedics given anything else unless she has further dislocation and would potentially have shoulder replacement. She is too young for this. Unable tolerate physical therapy secondary to pain and she does have other pain pills from her surgery but does not use them. REVIEW OF SYSTEMS: 12 systems negative except for those mentioned in the HPI. PHYSICAL EXAMINATION: Constitutional: The patient is alert, in no acute distress. Eyes: Extraocular movements are intact. ENT: external ear canals patent Neck: no JVD. Heart: no JVD Lungs: Normal respiration without stridor or nasal flaring Psychiatric: Good judgment and insight. Normal affect and mood. Skin: no rashes or lesions MSK/neurological transferred to the 12 is intact. Limited range of motion of right shoulder secondary to pain. Point tenderness to all of the rotator cuff muscles in the right. Assessment: per EMR Plan: I discussed the need to allow the patient to tolerate physical therapy to give best chance of recovery. Patient also has pain at night but declines injection secondary to the trauma from having the arthrogram. I discussed the procedure of how I do it as well as the 3 sprays usually extremely well-tolerated. However, we will do formal physical therapy as well as Toradol muscle relaxer and she can take half or a whole Vicodin that she has remaining before therapy sessions. If not improving come back in 2 weeks for injection to tolerate physical therapy. I will also provide a letter stating for her court she would actually have likely improvement of her pain if she were to move to a barometric stable location such as [place] or [place] for which I have actually personally recommended 6 different families in the past and they have actually moved with the results This dictation was created using Optraceation and may contain errors Active Problems Abnormal ultrasound of endometrium (793.5) (R93.5) Abnormal uterine bleeding (AUB) (626.9) (N93.9) Acid reflux (530.81) (K21.9) Acne vulgaris (706.1) (L70.0) Adhesive capsulitis of left shoulder (726.0) (M75.02) Allergic rhinitis, unspecified seasonality, unspecified trigger (477.9) (J30.9) Anal fissure (565.0) (K60.2) Anxiety and depression (300.00,311) (F41.9,F32.A) AOM (acute otitis media) (382.9) (H66.90) Back pain, thoracic (724.1) (M54.6) Biceps tendinitis (726.12) (M75.20) Bipolar 1 disorder, depressed, moderate (296.52) (F31.32) Blood in urine (599.70) (R31.9) Cellulitis (682.9) (L03.90) Cervical radiculopathy (723.4) (M54.12) Cervical strain (847.0) (S16.1XXA) Change in bowel habits (787.99) (R19.4) Chronic right shoulder pain (719.41,338.29) (M25.511,G89.29) Constipation, chronic (564.00) (K59.09) Contact hypersensitivity (692.9) (L23.9) Contraception management (V25.9) (Z30.9) Contusion of left elbow, initial encounter (923.11) (S50.02XA) Dysmenorrhea (625.3) (N94.6) Eczema (692.9) (L30.9) Encounter for emergency contraceptive counseling (V25.03) (Z30.09) Endometrial polyp (621.0) (N84.0) 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 Normal [facility] Office Visit (Internal Medic ine)on 08-29-2022 Follow-up visit Diagnoses/Problems Assessed Iron deficiency anemia due to chronic blood loss (280.0) (D50.0) Allergic rhinitis, unspecified seasonality, unspecified trigger (477.9) (J30.9) Overweight with body mass index (BMI) of 29 to 29.9 in adult (278.02,V85.25) (E66.3,Z68.29) Hives of unknown origin (708.9) (L50.9) Viral infection (079.99) (B34.9) Added by Problem List Migration; 2012-08-27; Moved to [facility] Apr 24 2013 9:16PM Vitamin D deficiency (268.9) (E55.9) Orders Abnormal uterine bleeding (AUB), Iron deficiency anemia due to chronic blood loss Start: Iron Slow Release 142 (45 Fe) MG Oral Tablet Extended Release; Take 1 tablet daily Rx By: Ronak Bearden; Dispense: 90 Days ; #:90 Tablet; Refill: 0;For: Abnormal uterine bleeding (AUB), Iron deficiency anemia due to chronic blood loss; SUSANNA = N; Verified Transmission to [facility] #29; Last Updated By: [facility] Earthineer; 08/29/2022 3:11:34 PM Allergic rhinitis, unspecified seasonality, unspecified trigger Start: Fluticasone Propionate 50 MCG/ACT Nasal Suspension; USE 2 SPRAYS IN EACH NOSTRIL ONCE DAILY Rx By: Ronak Bearden; Dispense: 30 Days ; #:1 X 16 GM Bottle; Refill: 1;For: Allergic rhinitis, unspecified seasonality, unspecified trigger; SUSANNA = N; Verified Transmission to [facility] #29; Last Updated By: [facility] Earth[employer]; 08/29/2022 3:21:31 PM Overweight with body mass index (BMI) of 29 to 29.9 in adult Some eating tips that can help you lose weight.; Status:Complete; Done: 29Aug2022 Ordered; For:Overweight with body mass index (BMI) of 29 to 29.9 in adult; Ordered By:Ronak Bearden; Vitamin D deficiency Start: Vitamin D3 1.25 MG (85150 UT) Oral Capsule; TAKE 1 CAPSULE BY MOUTH ONE TIME PER WEEK Rx By: Ronak Bearden; Dispense: 90 Days ; #:12 Capsule; Refill: 1;For: Vitamin D deficiency; SUSANNA = N; Verified Transmission to [facility] #29; Last Updated By: Ez Earthineer; 08/29/2022 3:11:34 PM Patient Discussion/Summary Hives of unknown origin/viral infection: Patient had recent rash she went to the ER for last Monday and was treated with steroids antihistamines with resolution of the rash and itching. No specific inciting event of note she did recently have a hysterectomy August 12. She was also in the ER on August 20 with some pelvic discomfort diarrhea, cough. She states the only medicine she received at that time was Toradol. Its unclear if this was a delayed hypersensitivity rash from when she received this medication or IV contrast but unlikely. She has no residual rash today no oral lesions. No itching. She is advised to finish the course of prednisone. If the rash recurs to follow-up for recheck. Likely type of viral infection as she has had a cough recently also some diarrhea. This is resolving as well. She also had recent chest x-ray that was negative. Allergic rhinitis: She has some evidence of allergic rhinitis will be prescribed Flonase. This will also help with eustachian tube dysfunction. Iron deficiency anemia: Likely related to her abnormal uterine bleeding as well as recent surgery I have started her on iron and she can follow-up in 3 months to have blood work repeated with her primary care physician. Cautioned that the iron can cause constipation so be vigilant about intake of water and fiber. Vitamin D deficiency: Patient requested refills for vitamin D she states that she has been on vitamin D3 50,000?units once weekly with good results would like to go back on this medication. I advise she have her vitamin D rechecked in 3 months when she has her iron levels checked at that time. Chief Complaint swelling hands, feet face hives - not active was itchy Adult Risk Screening Advance Care Planning discussed and documented in the medical record, patient did not wish or was not able to name a surrogate decision maker or provide an advance care plan. History of Present Illness Patient is a 27-year-old female past medical history of abnormal uterine bleeding, acid reflux, anxiety and depression, bipolar 1, eczema, non-smoker, Raynaud's phenomenon, vitamin D deficiency presents to the office today follow-up from recent ER visit for hives, rash. Patient was seen she states the emergency hospital on August 26 for hives. She states that he developed last on August 25, 2022. Started on her abdomen and then spread to her legs arms neck feet and hands itching and welts on the body. She does not recall any new medications, cosmetics, soaps, detergents. She did not take any medications for the rash. She also felt like her face feet and hands felt swollen. I did review lab work from her recent emergency room visit from 08/26/2022 patient had CMP was normal with exception of mildly low anion gap of 8. CBC showed microcytic anemia with hemoglobin of 9.7, white blood cell count 7.9 and platelet count 452. Of note she did have recent surgery with hysterectomy at [facility] in [facility] on August 12 for abnormal uterine bleeding. She states s (more content not included)... Normal [employer] Tobacco Screening.on 023 Adult depression screening assessment No [facility] DO Work Phone: Fall risk assessment a) No falls within the last year [facility] DO Work Phone: Tobacco use status [facility] b) No [facility] DO Work Phone: CBC With Platelet and Differ entialon 08-26-2022 Basophils (Bld) [#/Vol] 0.0 10*3/uL Normal 0.0-0.2 [facility] Comment on above: Performed By: #### C BCWD #### [facility] [address] [place] [address] Basophils/100 WBC (Bld) 0.2 % Normal [facility] Comment on above: Performed By: #### C BCWD #### [facility] [address] [place] [address] Eosinophils (Bld) [#/Vol] 0.0 10*3/uL Normal 0.0-0.7 [facility] Comment on above: Performed By: #### C BCWD #### [facility] [address] [facility] [address] Eosinophils/100 WBC (Bld) 0.4 % Normal [facility] Comment on above: Performed By: #### C BCWD #### [facility] [address] [place] [address] Erythrocyte distribution width (RBC) [Ratio] 15.2 % Critically high 11.5-14.5 [facility] Comment on above: Performed By: #### C BCWD #### [facility] [address] [place] [address] Hematocrit (Bld) [Volume fraction] 29.5 % Low 37.0-47.0 [facility] Comment on above: Performed By: #### C BCWD #### [facility] [address] [place] [address] Hemoglobin (Bld) [Mass/Vol] 9.7 g/dL Low 12.0-16.0 [facility] Comment on above: Performed By: #### C BCWD #### [facility] [address] [place] [address] Lymphocytes (Bld) [#/Vol] 1.3 10*3/uL Normal 1.0-4.8 [facility] Comment on above: Performed By: #### C BCWD #### [facility] [address] [place] [address] Lymphocytes/100 WBC (Bld) 16.9 % Normal [facility] Comment on above: Performed By: #### C BCWD #### [facility] [address] [place] [address] MCH (RBC) [Entitic mass] 26.8 pg Low 27.0-31.3 [facility] Comment on above: Performed By: #### C BCWD #### [facility] [address] [place] [address] MCHC 32.8 % Low 33.0-37.0 [facility] Comment on above: Performed By: #### C BCWD #### [facility] [address] [place] [address] MCV (RBC) [Entitic vol] 81.7 fL Normal 79.4-94.8 [facility] Comment on above: Performed By: #### C BCWD #### [facility] [address] [place] [address] Monocytes (Bld) [#/Vol] 0.4 10*3/uL Normal 0.2-0.8 [facility] Comment on above: Performed By: #### C BCWD #### [facility] [address] [place] [address] Monocytes/100 WBC (Bld) 4.6 % Normal [facility] Comment on above: Performed By: #### C BCWD #### [facility] [address] [place] [address] Neutrophils (Bld) [#/Vol] 6.1 10*3/uL Normal 1.4-6.5 [facility] Comment on above: Performed By: #### C BCWD #### [facility] [address] [place] [address] Neutrophils/100 WBC (Bld) 77.9 % Normal [facility] Comment on above: Performed By: #### C BCWD #### [facility] [address] [place] [address] Platelets (Bld) [#/Vol] 452 10*3/uL Critically high 130-400 [facility] Comment on above: Performed By: #### C BCWD #### [facility] [address] [place] [address] RBC (Bld) [#/Vol] 3.61 10*6/uL Low 4.20-5.40 [facility] Comment on above: Performed By: #### C BCWD #### [facility] [address] [place] [address] WBC (Bld) [#/Vol] 7.9 10*3/uL Normal 4.8-10.8 [facility] Comment on above: Performed By: #### C BCWD #### [facility] [address] [place] [address] Comprehensive Metabolic Pane claudia 08-26-2022 Albumin [Mass/Vol] 4.3 g/dL Normal 3.5-4.6 [facility] Comment on above: Performed By: #### C MP #### [facility] [address] [place] [address] ALP [Catalytic activity/Vol] 98 U/L Normal 40-130 [facility] Comment on above: Performed By: #### C MP #### [facility] [address] [place] [address] ALT [Catalytic activity/Vol] 9 U/L Normal 0-33 [facility] Comment on above: Performed By: #### C MP #### [facility] [address] [place] [address] Anion gap [Moles/Vol] 8 mmol/L Low 9-15 [facility] Comment on above: Performed By: #### C MP #### [facility] [address] [place] [address] AST [Catalytic activity/Vol] 12 U/L Normal 0-35 [facility] Comment on above: Performed By: #### C MP #### [facility] [address] [place] [address] Bilirubin [Mass/Vol] 0.8 mg/dL Critically high 0.2-0.7 [facility] Comment on above: Performed By: #### C MP #### [facility] [address] [place] [address] Calcium [Mass/Vol] 8.7 mg/dL Normal 8.5-9.9 [facility] Comment on above: Performed By: #### C MP #### [facility] [address] [place] [address] Chloride [Moles/Vol] 103 mmol/L Normal 95-107 [facility] Comment on above: Performed By: #### C MP #### [facility] [address] [place] [address] CO2 [Moles/Vol] 27 mmol/L Normal 20-31 [facility] Comment on above: Performed By: #### C MP #### [facility] [address] [place] [address] Creatinine [Mass/Vol] 0.82 mg/dL Normal 0.50-0.90 [facility] Comment on above: Performed By: #### C MP #### [facility] [address] [place] [address] GFR >60.0 Normal >60 [facility] Comment on above: Result Comment: Sigrid atric calculator link https://www.kidney.org/professionals/kdoqi/gfr_calculatorped Effective Feb 28, 2022 These results are not intended for use in patients <18 years of age. eGFR results are calculated without a race factor using the 2020 CKD-EPI equation. Careful clinical correlation is recommended, particularly when comparing to results calculated using previous equations. The CKD-EPI equation is less accurate in patients with extremes of muscle mass, extra-renal metabolism of creatinine, excessive creatinine ingestion, or following therapy that affects renal tubular secretion. Performed By: #### C MP #### [facility] [address] [place] [address] Globulin (S) [Mass/Vol] 2.6 g/dL Normal 2.3-3.5 [facility] Comment on above: Performed By: #### C MP #### [facility] [address] [place] [address] Glucose [Mass/Vol] 96 mg/dL Normal 70-99 [facility] Comment on above: Performed By: #### C MP #### [facility] [address] [place] [address] Potassium [Moles/Vol] 3.8 mmol/L Normal 3.4-4.9 [facility] Comment on above: Performed By: #### C MP #### [facility] [address] [place] [address] Protein [Mass/Vol] 6.9 g/dL Normal 6.3-8.0 [facility] Comment on above: Performed By: #### C MP #### [facility] [address] [place] [address] Sodium [Moles/Vol] 138 mmol/L Normal 135-144 [facility] Comment on above: Performed By: #### C MP #### [facility] [address] [place] [address] Urea nitrogen [Mass/Vol] 8 mg/dL Normal 6-20 [facility] Comment on above: Performed By: #### C MP #### [facility] [address] [place] [address] CBC W Auto Differential pane l (Bld)on 08-20-2022 Basophils (Bld) [#/Vol] 0.0 10*3/uL 0.0 - 0.2 K/uL [facility] Basophils/100 WBC (Bld) 0.5 % [facility] Eosinophils (Bld) [#/Vol] 0.3 10*3/uL 0.0 - 0.7 K/uL [facility] Eosinophils/100 WBC (Bld) 4.1 % [facility] Erythrocyte distribution width (RBC) [Ratio] 14.9 % High 11.5 - 14.5 % [facility] Hematocrit (Bld) [Volume fraction] 32.5 % Low 37.0 - 47.0 % [facility] Hemoglobin (Bld) [Mass/Vol] 10.5 g/dL Low 12.0 - 16.0 g/dL [facility] Interpretation and review of laboratory results Abnormal [facility] Lymphocytes (Bld) [#/Vol] 1.7 10*3/uL 1.0 - 4.8 K/uL [facility] Lymphocytes/100 WBC (Bld) 22.4 % [facility] MCH (RBC) [Entitic mass] 23.7 pg Low 27.0 - 31.3 pg [facility] MCHC (RBC) [Mass/Vol] 32.3 % Low 33.0 - 37.0 % [facility] MCV (RBC) [Entitic vol] 73.5 fL Low 79.4 - 94.8 fL [facility] Microcytes Ql (Bld) 1+ [facility] Monocytes (Bld) [#/Vol] 0.5 10*3/uL 0.2 - 0.8 K/uL [facility] Monocytes/100 WBC (Bld) 6.4 % [facility] Neutrophils (Bld) [#/Vol] 5.1 10*3/uL 1.4 - 6.5 K/uL [facility] Ovalocytes LM Ql (Bld) 1+ [facility] Platelets (Bld) [#/Vol] 434 10*3/uL High 130 - 400 K/uL [facility] Platelets LM Ql (Bld) Increased [facility] Poikilocytosis LM Ql (Bld) 1+ [facility] Polychromasia LM Ql (Bld) 1+ [facility] RBC (Bld) [#/Vol] 4.43 10*6/uL [facility] Segmented neutrophils/100 WBC (Bld) 66.6 % [facility] SLIDE REVIEW see below [facility] Comment on above: Slide review agrees with reported results WBC (Bld) [#/Vol] 7.6 10*3/uL 4.8 - 10.8 K/uL [facility] CBC With Platelet and Differ entialon 08-20-2022 Slide Review see below [facility] Comment on above: Result Comment: Slid e review agrees with reported results Performed By: #### C BCWD #### [facility] [address] [place] [address] Microcytic 1+ [facility] Comment on above: Performed By: #### C BCWD #### [facility] [address] [place] [address] Ovalocytes 1+ [facility] Comment on above: Performed By: #### C BCWD #### [facility] [address] [place] [address] Platelet Slide Review Increased Normal [facility] Comment on above: Performed By: #### C BCWD #### [facility] [address] [place] [address] Poikilocytosis 1+ Normal [facility] Comment on above: Performed By: #### C BCWD #### [facility] [address] [place] [address] Polychromasia 1+ Normal [facility] Comment on above: Performed By: #### C BCWD #### [facility] [address] [place] [address] Basophils (Bld) [#/Vol] 0.0 10*3/uL Normal 0.0-0.2 [facility] Comment on above: Performed By: #### C BCWD #### [facility] [address] [place] [address] Basophils/100 WBC (Bld) 0.5 % Normal [facility] Comment on above: Performed By: #### C BCWD #### [facility] [address] [place] [address] Eosinophils (Bld) [#/Vol] 0.3 10*3/uL Normal 0.0-0.7 [facility] Comment on above: Performed By: #### C BCWD #### [facility] [address] [place] [address] Eosinophils/100 WBC (Bld) 4.1 % Normal [facility] Comment on above: Performed By: #### C BCWD #### [facility] [address] [place] [address] Erythrocyte distribution width (RBC) [Ratio] 14.9 % Critically high 11.5-14.5 [facility] Comment on above: Performed By: #### C BCWD #### [facility] [address] [place] [address] Hematocrit (Bld) [Volume fraction] 32.5 % Low 37.0-47.0 [facility] Comment on above: Performed By: #### C BCWD #### [facility] [address] [place] [address] Hemoglobin (Bld) [Mass/Vol] 10.5 g/dL Low 12.0-16.0 [facility] Comment on above: Performed By: #### C BCWD #### [facility] [address] [place] [address] Lymphocytes (Bld) [#/Vol] 1.7 10*3/uL Normal 1.0-4.8 [facility] Comment on above: Performed By: #### C BCWD #### [facility] [address] [place] [address] Lymphocytes/100 WBC (Bld) 22.4 % Normal [facility] Comment on above: Performed By: #### C BCWD #### [facility] [address] [place] [address] MCH (RBC) [Entitic mass] 23.7 pg Low 27.0-31.3 [facility] Comment on above: Performed By: #### C BCWD #### [facility] [address] [place] [address] MCHC 32.3 % Low 33.0-37.0 [facility] Comment on above: Performed By: #### C BCWD #### [facility] [address] [place] [address] MCV (RBC) [Entitic vol] 73.5 fL Low 79.4-94.8 [facility] Comment on above: Performed By: #### C BCWD #### [facility] [address] [place] [address] Monocytes (Bld) [#/Vol] 0.5 10*3/uL Normal 0.2-0.8 [facility] Comment on above: Performed By: #### C BCWD #### [facility] [address] [place] [address] Monocytes/100 WBC (Bld) 6.4 % Normal [facility] Comment on above: Performed By: #### C BCWD #### [facility] [address] [place] [address] Neutrophils (Bld) [#/Vol] 5.1 10*3/uL Normal 1.4-6.5 [facility] Comment on above: Performed By: #### C BCWD #### [facility] [address] [place] [address] Neutrophils/100 WBC (Bld) 66.6 % Normal [facility] Comment on above: Performed By: #### C BCWD #### [facility] [address] [place] [address] Platelets (Bld) [#/Vol] 434 10*3/uL Critically high 130-400 [facility] Comment on above: Performed By: #### C BCWD #### [facility] [address] [place] [address] RBC (Bld) [#/Vol] 4.43 10*6/uL Normal 4.20-5.40 [facility] Comment on above: Performed By: #### C BCWD #### [facility] [address] [place] [address] WBC (Bld) [#/Vol] 7.6 10*3/uL Normal 4.8-10.8 [facility] Comment on above: Performed By: #### C BCWD #### [facility] [address] [place] [address] COVID-19on 08-20-2022 SARS-CoV-2 (COVID-19) RNA RADHA+probe Ql (Unsp spec) Not detected Normal Not Detect [facility] Comment on above: Result Comment: Rapi d NAAT: Negative results should be treated as presumptive and, if inconsistent with clinical signs and symptoms or necessary for patient management, should be tested with an alternative molecular assay. Negative results do not preclude SARS-CoV-2 infection and should not be used as the sole basis for patient management decisions. This test has been authorized by the FDA under an Emergency Use Authorization (EUA) for use by authorized laboratories. Fact sheet for Healthcare Providers: https://www.fda.gov/media/608278/download Fact sheet for Patients: https://www.fda.gov/media/890757/download METHODOLOGY: Isothermal Nucleic Acid Amplification Performed By: #### C OVRG #### [facility] [address] [place] [address] COVID-19, Rapidon 08-20-2022 SARS-CoV-2 (COVID-19) RdRp gene RADHA+probe Ql (Resp) Not detected Not Detected [facility] Comment on above: Rapid NAAT: Negative results should be treated as presumptive and, if inconsistent with clinical signs and symptoms or necessary for patient management, should be tested with an alternative molecular assay. Negative results do not preclude SARS-CoV-2 infection and should not be used as the sole basis for patient management decisions. This test has been authorized by the FDA under an Emergency Use Authorization (EUA) for use by authorized laboratories. Fact sheet for Healthcare Providers: https://www.fda.gov/media/745810/download Fact sheet for Patients: https://www.fda.gov/media/776154/download METHODOLOGY: Isothermal Nucleic Acid Amplification [facility] CT ABDOMEN PELVIS W IV CONTR Kym 08-20-2022 CT ABDOMEN PELVIS W IV CONTRAST EXAMINATION: CT OF THE ABDOMEN AND PELVIS WITH CONTRAST 08/20/2022 6:49 pm TECHNIQUE: CT of the abdomen and pelvis was performed with the administration of intravenous contrast. Multiplanar reformatted images are provided for review. Automated exposure control, iterative reconstruction, and/or weight based adjustment of the mA/kV was utilized to reduce the radiation dose to as low as reasonably achievable. COMPARISON: None. HISTORY: ORDERING SYSTEM PROVIDED HISTORY: lap hyster, diarrhea, pelvic pain, pressure TECHNOLOGIST PROVIDED HISTORY: Additional Contrast?->None Reason for exam:->lap hyster, diarrhea, pelvic pain, pressure Decision Support Exception - unselect if not a suspected or confirmed emergency medical condition->Emergency Medical Condition (MA) What reading provider will be dictating this exam?->CRC Coronary patient the patient underwent laparoscopic hysterectomy 8 days earlier. FINDINGS: Lower Chest: Visualized portion of the lower chest demonstrates no acute abnormality.2 Organs: The liver, spleen, pancreas, adrenal glands and kidneys are unremarkable. There is a benign calcifications seen within the right hepatic lobe. GI/Bowel: The gallbladder is not seen and likely has been resected. The stomach is normally distended. There is no large or small bowel obstruction. There are no findings of inflammatory bowel disease. Pelvis: There are no secondary signs of appendicitis. Bladder is unremarkable in appearance. Minimal induration is seen within the uterine fossa a consistent with normal postoperative changes in a patient who underwent laparoscopic hysterectomy 8 days earlier. There is no abscess or fluid collection. There is no free air within the pelvis. Peritoneum/Retroperitoneum: The abdominal aorta is normal in caliber. There is no aneurysm or dissection. No evidence of retroperitoneal lymphadenopathy. Bones/Soft Tissues: No acute abnormality of the visualized osseous structures. IMPRESSION: 1. There is minimal induration seen within the pelvis and uterine fossa consistent with recent laparoscopic hysterectomy. There is no appreciable abscess, fluid collection or free air. 2. There is no acute intra-abdominal or intrapelvic pathology. Interpreted by: Mark Bear MD Signed by: Mark Bear MD 08/21/22 Final result Normal [facility] Comprehensive Metabolic Pane claudia 08-20-2022 Anion gap [Moles/Vol] 11 mmol/L Normal 9-15 [facility] Comment on above: Performed By: #### R SS #### [facility] [address] [place] [address] Albumin [Mass/Vol] 4.9 g/dL Critically high 3.5-4.6 [facility] Comment on above: Performed By: #### R SS #### [facility] [address] [place] [address] ALP [Catalytic activity/Vol] 112 U/L Normal 40-130 [facility] Comment on above: Performed By: #### R SS #### [facility] [address] [place] [address] ALT [Catalytic activity/Vol] 12 U/L Normal 0-33 [facility] Comment on above: Performed By: #### R SS #### [facility] [address] [place] [address] AST [Catalytic activity/Vol] 14 U/L Normal 0-35 [facility] Comment on above: Performed By: #### R SS #### [facility] [address] [place] [address] Bilirubin [Mass/Vol] 0.4 mg/dL Normal 0.2-0.7 [facility] Comment on above: Performed By: #### R SS #### [facility] [address] [place] [address] Calcium [Mass/Vol] 9.7 mg/dL Normal 8.5-9.9 [facility] Comment on above: Performed By: #### R SS #### [facility] [address] [place] [address] Chloride [Moles/Vol] 102 mmol/L Normal 95-107 [facility] Comment on above: Performed By: #### R SS #### [facility] [address] [place] [address] CO2 [Moles/Vol] 28 mmol/L Normal 20-31 [facility] Comment on above: Performed By: #### R SS #### [facility] [address] [place] [address] Creatinine [Mass/Vol] 0.78 mg/dL Normal 0.50-0.90 [facility] Comment on above: Performed By: #### R SS #### [facility] [address] [place] [address] GFR >60.0 Normal >60 [facility] Comment on above: Result Comment: Pedi atric calculator link https://www.kidney.org/professionals/kdoqi/gfr_calculatorped Effective Feb 28, 2022 These results are not intended for use in patients <18 years of age. eGFR results are calculated without a race factor using the 2020 CKD-EPI equation. Careful clinical correlation is recommended, particularly when comparing to results calculated using previous equations. The CKD-EPI equation is less accurate in patients with extremes of muscle mass, extra-renal metabolism of creatinine, excessive creatinine ingestion, or following therapy that affects renal tubular secretion. Performed By: #### R SS #### [facility] [address] [place] [address] Globulin (S) [Mass/Vol] 3.2 g/dL Normal 2.3-3.5 [facility] Comment on above: Performed By: #### R SS #### [facility] [address] [place] [address] Glucose [Mass/Vol] 97 mg/dL Normal 70-99 [facility] Comment on above: Performed By: #### R SS #### [facility] [address] [place] [address] Potassium [Moles/Vol] 3.9 mmol/L Normal 3.4-4.9 [facility] Comment on above: Performed By: #### R SS #### [facility] [address] [place] [address] Protein [Mass/Vol] 8.1 g/dL Critically high 6.3-8.0 [facility] Comment on above: Performed By: #### R SS #### [facility] [address] [place] [address] Sodium [Moles/Vol] 141 mmol/L Normal 135-144 [facility] Comment on above: Performed By: #### R SS #### [facility] [address] [place] [address] Urea nitrogen [Mass/Vol] 13 mg/dL Normal 6-20 [facility] Comment on above: Performed By: #### R SS #### [facility] [address] [place] [address] Comprehensive metabolic 2000 panelon 08-20-2022 Albumin [Mass/Vol] 4.9 g/dL High 3.5 - 4.6 g/dL [facility] ALP [Catalytic activity/Vol] 112 U/L 40 - 130 U/L [facility] ALT [Catalytic activity/Vol] 12 U/L 0 - 33 U/L [facility] Anion gap [Moles/Vol] 11 mmol/L [facility] AST [Catalytic activity/Vol] 14 U/L 0 - 35 U/L [facility] Bilirubin [Mass/Vol] 0.4 mg/dL 0.2 - 0 .7 mg/dL [facility] Calcium [Mass/Vol] 9.7 mg/dL 8.5 - 9.9 mg/dL [facility] Chloride [Moles/Vol] 102 mmol/L [facility] CO2 [Moles/Vol] 28 mmol/L [facility] Creatinine [Mass/Vol] 0.78 mg/dL 0.50 - 0.90 mg/dL [facility] GFR/1.73 sq M.predicted among non-blacks MDRD (S/P/Bld) [Vol rate/Area] 60 - PINF [facility] Comment on above: Pediatric calculator link https://www.kidney.org/professionals/kdoqi/gfr_calculatorped Effective Feb 28, 2022 These results are not intended for use in patients <18 years of age. eGFR results are calculated without a race factor using the 2020 CKD-EPI equation. Careful clinical correlation is recommended, particularly when comparing to results calculated using previous equations. The CKD-EPI equation is less accurate in patients with extremes of muscle mass, extra-renal metabolism of creatinine, excessive creatinine ingestion, or following therapy that affects renal tubular secretion. Globulin (S) [Mass/Vol] 3.2 g/dL 2.3 - 3.5 g/dL [facility] Glucose [Mass/Vol] 97 mg/dL 70 - 99 mg/dL [facility] Interpretation and review of laboratory results Abnormal [facility] Potassium [Moles/Vol] 3.9 mmol/L [facility] Protein [Mass/Vol] 8.1 g/dL High 6.3 - 8.0 g/dL [facility] Sodium [Moles/Vol] 141 mmol/L [facility] Urea nitrogen [Mass/Vol] 13 mg/dL 6 - 20 mg/dL [facility] Influenza A and [facility] 08-21-19 Influenza A by PCR Negative Normal [facility] Comment on above: Performed By: #### F LUAB #### [facility] [address] [place] [address] Influenza B by PCR Negative Normal [facility] Comment on above: Performed By: #### F LUAB #### [facility] [address] [place] [address] Lactate (BldV) [Moles/Vol]on 08-20-2022 [facility] Lactic Acidon 08-20-2022 Lactate [Moles/Vol] 1.4 mmol/L Normal 0.5-2.2 [facility] Comment on above: Performed By: #### L ACID #### [facility] [address] [place] [address] Lactate (BldV) [Moles/Vol] 1.4 mmol/L 0.5 - 2.2 mmol/L [facility] Lipaseon 08-20-2022 Lipase [Catalytic activity/Vol] 23 U/L Normal 12-95 [facility] Comment on above: Performed By: #### L IPAS #### [facility] [address] [place] [address] Lipase [Catalytic activity/Vol] 23 U/L 12 - 95 U/L [facility] No Panel Informationon 08-20 [facility] POCT CREATININEOrdered By: Noah Rivera on 08-20-2022 Interpretation and review of laboratory results Normal [facility] POC CREATININE WHOLE BLOOD 0.8 [facility] POCT Venouson 08-20-2022 Creatinine [Mass/Vol] 0.8 mg/dL Normal 0.6-1.2 [facility] Comment on above: Performed By: #### P YUE #### [facility] [address] [place] [address] GFR >60 Normal >60 [facility] Comment on above: Result Comment: Sigrid atric calculator link https://www.kidney.org/professionals/kdoqi/gfr_calculatorped Effective Feb 28, 2022 These results are not intended for use in patients <18 years of age. eGFR results are calculated without a race factor using the 2020 CKD-EPI equation. Careful clinical correlation is recommended, particularly when comparing to results calculated using previous equations. The CKD-EPI equation is less accurate in patients with extremes of muscle mass, extra-renal metabolism of creatinine, excessive creatinine ingestion, or following therapy that affects renal tubular secretion. Performed By: #### P YUE #### [facility] [address] [place] [address] POC Performed on SEE BELOW Normal [facility] Comment on above: Result Comment: Perf ormed on POC Performed By: #### P YUE #### [facility] [address] [facility] [address] POC Sample Type YUE Normal [facility] Comment on above: Performed By: #### P YUE #### [facility] [address] [facility] [address] Rapid A Strep Antigenon 07-28 S. pyogenes Ag IA Ql (Unsp spec) Negative Normal [facility] Comment on above: Result Comment: Nega tive for Strep A nucleic acid. Performed By: #### R SS #### [facility] [address] [facility] [address] Rapid Influenza A/B Antigens on 08-20-2022 Influenza A by PCR Negative [facility] Influenza B by PCR Negative [facility] Rapid Strep Screenon 023 Strep Grp A PCR Negative [facility] Comment on above: Negative for Strep A nucleic acid. [facility] Troponinon 08-20-2022 Troponin I.cardiac [Mass/Vol] ng/mL Normal 0.000-0.01 [facility] Comment on above: Result Comment: Meth odology by Troponin T. Performed By: #### R SS #### [facility] [address] [facility] [address] Troponin T.cardiac [Mass/Vol] ng/mL 0.000 - 0.010 ng/mL [facility] Comment on above: Methodology by Tropo mirna T. Troponin T.cardiac [Mass/Vol ]on 08-20-2022 [facility] Urinalysis, reflex to cultur kerwin 08-20-2022 Urine Reflexed to Culture Not Indicated Normal [facility] Comment on above: Performed By: #### R SS #### [facility] [address] [place] [address] Bilirubin Ql (U) Negative Normal Negative [facility] Comment on above: Performed By: #### R SS #### [facility] [address] [place] [address] Clarity (U) Clear Normal Clear [facility] Comment on above: Performed By: #### R SS #### [facility] [address] [place] [address] Color (U) Yellow Normal Straw/Preble [facility] Comment on above: Performed By: #### R SS #### [facility] [address] [place] [address] Glucose Ql (U) Negative Normal Negative [facility] Comment on above: Performed By: #### R SS #### [facility] [address] [place] [address] Hemoglobin Ql (U) TRACE Abnormal Negative [facility] Comment on above: Performed By: #### R SS #### [facility] [address] [place] [address] Ketones Ql (U) Negative Normal Negative [facility] Comment on above: Performed By: #### R SS #### [facility] [address] [place] [address] Leukocyte esterase Test strip Ql (U) Negative Normal Negative [facility] Comment on above: Performed By: #### R SS #### [facility] [address] [place] [address] Nitrite Ql (U) Negative Normal Negative [facility] Comment on above: Performed By: #### R SS #### [facility] [address] [place] [address] pH (U) 6.5 [pH] Normal 5.0-9.0 [facility] Comment on above: Performed By: #### R SS #### [facility] [address] [place] [address] Protein Ql (U) Negative Normal Negative [facility] Comment on above: Performed By: #### R SS #### [facility] [address] [place] [address] Specific gravity (U) [Rel density] 1.078 Normal 1.005-1.03 [facility] Comment on above: Performed By: #### R SS #### [facility] [address] [place] [address] Urobilinogen Qn (U) 0.2 {Jessica'U}/dL Normal < 2.0 [facility] Comment on above: Performed By: #### R SS #### [facility] [address] [place] [address] Urine Microscopicon 08-21-19 23 Urine Bacteria FEW Abnormal Negative [facility] Comment on above: Performed By: #### U BRIEN #### [facility] [address] [place] [address] Urine Epithelial Cells Auto 10-20 Normal 0-5 [facility] Comment on above: Performed By: #### U BRIEN #### [facility] [address] [place] [address] Urine RBC Auto 3-5 Abnormal 0-5 [facility] Comment on above: Performed By: #### U BRIEN #### [facility] [address] [place] [address] Urine WBC Auto 6-9 Abnormal 0-5 [facility] Comment on above: Performed By: #### U BRIEN #### [facility] [address] [place] [address] XR CHEST PORTABLEon 08-21-19 23 XR CHEST PORTABLE EXAMINATION: ONE XRAY VIEW OF THE CHEST 08/20/2022 6:29 pm COMPARISON: None. HISTORY: ORDERING SYSTEM PROVIDED HISTORY: illness, s/p lab hyster TECHNOLOGIST PROVIDED HISTORY: Reason for exam:->illness, s/p lab hyster Is the patient ?->No What reading provider will be dictating this exam?->CRC FINDINGS: The lungs are without acute focal process. There is no effusion or pneumothorax. The cardiomediastinal silhouette is without acute process. The osseous structures are without acute process. IMPRESSION: No acute process. Interpreted by: Jules Davis MD Signed by: Jules Davis MD 08/20/22 Final result Normal [facility] No acute process. [facility] RADIOLOGY EXAMINATION: ONE XRAY VIEW OF THE CHEST 08/20/2022 6:29 pm COMPARISON: None. HISTORY: ORDERING SYSTEM PROVIDED HISTORY: illness, s/p lab hyster TECHNOLOGIST PROVIDED HISTORY: Reason for exam:->illness, s/p lab hyster Is the patient ?->No What reading provider will be dictating this exam?->CRC FINDINGS: The lungs are without acute focal process. There is no effusion or pneumothorax. The cardiomediastinal silhouette is without acute process. The osseous structures are without acute process. [facility] RADIOLOGY Jules Davis MD - 08/20 EXAMINATION: ONE XRAY VIEW OF THE CHEST 08/20/2022 6:29 pm COMPARISON: None. HISTORY: ORDERING SYSTEM PROVIDED HISTORY: illness, s/p lab hyster TECHNOLOGIST PROVIDED HISTORY: Reason for exam:->illness, s/p lab hyster Is the patient ?->No What reading provider will be dictating this exam?->CRC FINDINGS: The lungs are without acute focal process. There is no effusion or pneumothorax. The cardiomediastinal silhouette is without acute process. The osseous structures are without acute process. IMPRESSION: No acute process. Guide Phone: Radiology Study observation (narrative) Guide Phone: XR CHEST PORTABLEOrdered By: Jules Davis on 08-20-2022 Guide Phone: HCG ( test) Ql (U)o n 08-12-2022 [employer] HCG QUALITATIVE, URINEon HCG ( test) Ql (U) Negative NEGATIVE [facility] REPEAT ABO/RHon 08-12-2022 REPEAT ABO/RH Positive Normal [facility] Comment on above: Performed By: #### R ABRH #### Testing performed at [address] [address] REPEAT ABO/RH (D) TYPINGon 0 08-12-2022 ABO and Rh group Nom (Bld ) Positive [facility] URINE HCG QUALon 08-12-2022 Beta HCG ( test) Ql (U) Negative Normal NEGATIVE [facility] Comment on above: Performed By: #### U HCGT #### Testing performed at [place] [id number] TYPE AND SCREEN CROSSMATCH C ONVERTIBLEon 08-10-2022 TYPE AND SCREEN CROSSMATCH CONVERTIBLE WORKUP EXPIRES 08/15/2022,2359 ABO/RH(D) O POSITIVE ANTIBODY SCREEN NEGATIVE ARM BAND NUMBER [id number] Normal [facility] Comment on above: Performed By: #### T SCC #### Testing performed at [address] [address] ALLIED HEALTHon 07-28-2022 ALLIED [facility]ALTH HNO ID: [id number] Author: NICKY Mason Service: Radiology Author Type: Labor Relations Worker Type: Allied Health Filed: 07/28/2022 1:50 PM Note Text: Radiology Service Progress Note PATIENT NAME: Sussy Crane DATE OF SERVICE: July 28, 2022 TIME: 1:49 PM PATIENT IDENTITY VERIFICATION COMPLETED USING TWO (2) IDENTIFIERS: Name and Date of confirmed by patient verbally and Name and Date of confirmed by identification band. FALL SCREENING: Has the patient had 2 falls in the last year or 1 fall with injury or currently using an Ambulatory Assistive Device (Walker, Cane, Wheelchair, Crutches, etc.)? No PATIENT GENDER DATA: Female. status: : No status: NO. PATIENT RELEVANT IMPLANT DATA REVIEWED: Yes RADIOLOGY DEPARTMENT: MR; Exam(s) Completed: Lower MSK: Hip, bilateral PERIPHERAL IV DATA: Not applicable SIGNED BY: NICKY Mason Lexi Clark July 28, 2022 1:49 PM Normal [facility] MRI HIP WO IVCON LTon 2022 MRI HIP WO IVCON LT * * *Final Report* * * DATE OF EXAM: Jul 28 2022 2:15PM [facility] 0206 - MRI HIP WO IVCON LT / PROCEDURE REASON: Pain in hip * * * * Physician Interpretation * * * * EXAMINATION: MRI HIP WO IVCON LT, MRI HIP WO IVCON RT HISTORY: Bilateral hip and groin pain since giving approximately 2 years ago. TECHNIQUE: Routine multiplanar MRI of the hip without contrast COMPARISON: None. RESULT: Right hip radiographs 07/08/2022 Hip joints: Right hip: The articular cartilage is preserved. The acetabular labrum is intact. There is no joint effusion. Mild cam deformity. Left hip: The articular cartilage is preserved. Irregularity in the anterior acetabular labrum with increased signal extending into the labrum (12:12) probably due to labral fraying/small tear. There is no joint effusion. Mild cam deformity Bone Marrow: No fracture or suspicious marrow replacing lesions. Sacroiliac joints: There is sclerosis along the iliac side of the bilateral SI joints, likely mechanical in nature. Pubic symphysis: Within normal limits. Tendons: The iliopsoas, hamstring, gluteal, and rectus femoris tendons are intact. Muscles: Within normal limits. Other: Nabothian cysts Localizer images: No significant additional findings. IMPRESSION: 1. Anterior acetabular labral fraying/small tear on the left. No evidence of a acetabular labral tear in the right. 2. Chronic stress changes at the sacroiliac joints bilaterally in the spectrum of osteitis condensans ilii. Take Down Sorter: [employer] Transcribe Date/Time: Jul 28 2022 2:41P Dictated by : VANE MOREIRA MD This examination was interpreted and the report reviewed and electronically signed by: CLAUDY EASTON MD on Jul 28 2022 4:23PM EST [id number] Normal [facility] MRI HIP WO IVCON RTon 2022 MRI HIP WO IVCON RT * * *Final Report* * * DATE OF EXAM: Jul 28 2022 2:15PM [facility] 0207 - MRI HIP WO IVCON RT / PROCEDURE REASON: Pain in hip * * * * Physician Interpretation * * * * EXAMINATION: MRI HIP WO IVCON LT, MRI HIP WO IVCON RT HISTORY: Bilateral hip and groin pain since giving approximately 2 years ago. TECHNIQUE: Routine multiplanar MRI of the hip without contrast COMPARISON: None. RESULT: Right hip radiographs 07/08/2022 Hip joints: Right hip: The articular cartilage is preserved. The acetabular labrum is intact. There is no joint effusion. Mild cam deformity. Left hip: The articular cartilage is preserved. Irregularity in the anterior acetabular labrum with increased signal extending into the labrum (12:12) probably due to labral fraying/small tear. There is no joint effusion. Mild cam deformity Bone Marrow: No fracture or suspicious marrow replacing lesions. Sacroiliac joints: There is sclerosis along the iliac side of the bilateral SI joints, likely mechanical in nature. Pubic symphysis: Within normal limits. Tendons: The iliopsoas, hamstring, gluteal, and rectus femoris tendons are intact. Muscles: Within normal limits. Other: Nabothian cysts Localizer images: No significant additional findings. IMPRESSION: 1. Anterior acetabular labral fraying/small tear on the left. No evidence of a acetabular labral tear in the right. 2. Chronic stress changes at the sacroiliac joints bilaterally in the spectrum of osteitis condensans ilii. Take Down Sorter: [facility]ISONVILLEAmber Transcribe Date/Time: Jul 28 2022 2:41P Dictated by : VANE MOREIRA MD This examination was interpreted and the report reviewed and electronically signed by: CLAUDY EASTON MD on Jul 28 2022 4:23PM EST [id number] Normal [facility] US PELVIC TRANSVAGINAL WITH COLOR FLOWon 07-24-2022 US PELVIC TRANSVAGINAL WITH COLOR FLOW EXAMINATION: PELVIC ULTRASOUND HISTORY: ORDERING SYSTEM PROVIDED HISTORY: Heavy vaginal bleeding, lower abdominal pain, TECHNOLOGIST PROVIDED HISTORY: Illness/Other Reason for exam: vaginal bleeding x 23 days Cancer History: unknown Surgery, RadiationHistory: bilateral salpingectomy Encounter Type: Initial Additional signs and symptoms: none ORDERING SYSTEM PROVIDED DIAGNOSIS CODES: COMPARISON: There is a older abdomen and pelvis CT scan dated 10/27/2020 available for correlation. TECHNIQUE: Transvaginal imaging of the pelvis was performed. FINDINGS: MEASUREMENTS: Uterus: 8.2 x 4.1 x 4.5 cm Endometrium: 6.5 mm in thickness Right Ovary: 2.6 x 1.6 x 1.9 cm Left Ovary: Obscured due to bowel gas interference. UTERUS: The uterus is normal in size and contour. There is heterogeneity of the myometrium which is typically seen with adenomyosis. Endometrium is not thickened. ADNEXA: There is normal vascular flow to the right ovary. There are no adnexal masses. MISC: There is no free fluid in the pelvis. IMPRESSION: Heterogeneity of the myometrium which can be seen in adenomyosis. Nonvisualization of the left ovary. Unremarkable pelvic ultrasound otherwise. Workstation ID: [id number] Dictated by: MARTY CARVER on [place] Jul 24, 2022 1:40:55 AM EST Transcribed by: MARTY CARVER on [place] Jul 24, 2022 1:40:55 AM EST Finalized by: MARTY CARVER on [place] Jul 24, 2022 1:40:55 AM EST Normal [facility] Comment on above: Order Comment: Injur y/Trauma or Illness?:Illness/Other How long have you had these symptoms (acute/chronic)?:Acute Reason for exam?:vaginal bleeding x 23 days History of cancer?:unknown Surgeries, chemotherapy, or radiation?:bilateral salpingectomy Type of Exam?:Initial Additional signs and symptoms?:none Clinical Event Note-discharg e follow upon 07-15-2022 Clinical Event Note-discharge follow up Clinical Event: Clinical Event Note: Topicdischarge follow up Details l/m for pt advised her about the 5 star survey Electronic Signatures: Ayaka Kong (PT SVS REP) (Signed 15-Jul-2022 15:43) Authored: Clinical Event Note Last Updated: 15-Jul-2022 15:43 by Ayaka Kong (PT SVS REP) Normal [facility] Provider Note - ED v3on 06-29 Provider Note - ED v3 Provider Note: Chart Review: ED NOTES ED NOTES: A female patient comes into the emergency department today with complaints of lower abdominal pain that started earlier today. She described as a ripping sensation in her low abdomen. States she also feels like her upper abdomen feels like spaghetti. She rates her pain currently a 6 out of 10 on the pain scale. States she has associated nausea without vomiting or diarrhea. Denies any fevers, chills. States she has had prior cholecystectomy, tubal ligation but otherwise no other abdominal surgeries. States he has history of fibromyalgia. She denies any tobacco use states she drinks alcohol on very rare occasion and denies any street drug use or cannabis use. HISTORY OF PRESENTING ILLNESS SUSSY is a 27 year old Female and was seen by me at 14-Jul-2022 20:12 for a chief complaint of abdominal pain . The historian is the patient. Triage Information: Most recent Vital Sign Value Date Temp (F): 97.5 07-14-2022 20:06 Temp (C): 36.4 07-14-2022 20:06 Heart Rate (beats/min): 82 07-14-2022 20:06 Respirations (breaths/min): 18 07-14-2022 20:06 SpO2 (%): 98 07-14-2022 20:06 BP Systolic (mm Hg): 144 07-14-2022 20:06 BP Diastolic (mm Hg): 69 07-14-2022 20:06 Presenting Symptoms: nausea. Patient denies diarrhea, fever and vomiting. Located in the: (Low Abdomen) area. The quality is aching. The context is Unknown. The symptoms started today. The timing is constant. PAST MEDICAL HISTORY ATTESTATION: Medical conditions: Hyper myalgia Social history: Not incarcerated PSYCHOSOCIAL SCREENING: NO: concerns for safety at home, feelings of depression, feels like hurting others and feels like hurting self CURRENT OR FORMER SUBSTANCE USE: Tobacco/Nicotine Use: never smoker Alcohol Use: occasionally Drug Use: denies,Drug 2 Use: denies ALLERGIES/INTOLERANCES: Allergy Allergen: morphine Type: Drug Reaction: Unknown HEALTH HISTORY: Medical History Name:GERD (gastroesophageal reflux disease) Code:K21.9 Name:Anxiety and depression Code:F41.9 Name:Bipolar 1 disorder Code:F31.9 Name:Eczema Code:L30.9 Name:Labral tear of shoulder, right, initial encounter Code:S43.431A Name:Rupture long head biceps tendon, right, initial encounter Code:S46.111A OUTPATIENT MEDICATIONS: Home Medications Review Status for Reconciliation: N/A Med Status: Patient Currently Takes Medications Drug Name: valACYclovir 1 g oral tablet Instructions: 1 tab(s) orally 2 times a day, As Needed Drug Name: doxycycline monohydrate 100 mg oral tablet Instructions: 1 tab(s) orally once a day SIGNIFICANT EVENTS: Clinical Events Description:Surgical Procedure Additional Notes:1. right shoulder arthroscopic extensive debridement of labrum bicep bicep base with bicep tenotomy;2. right shoulder arthroscopic capsulorrhaphy;3. right shoulder open long head bicep tenodesis;4. ;5. Past Surgical History Description:cholecystectomy REVIEW OF SYSTEMS CONSTITUTIONAL: Negative for: chills and fever RESPIRATORY: Negative for: cough and dyspnea GASTROINTESTINAL: POSITIVE for: abdominal pain and nausea; Negative for: diarrhea and vomiting; All other systems reviewed and are negative PHYSICAL EXAM CONSTITUTIONAL: Appearance: well appearing Distress: MILD Mentation: awake, alert and oriented to person, place, time/situation HENMT: Face: no signs of abnormality EYES: Clear bilaterally, EOMI CARDIOVASCULAR: Normal rate, regular rhythm. Heart sounds S1, S2. No murmurs, rubs or gallops. PMI non-displaced. RESPIRATORY: Breath sounds clear and equal bilaterally. GASTROINTESTINAL: Abdominal Tenderness: LEFT LOWER QUADRANT Abdominal Guarding: LEFT LOWER QUADRANT GENITOURINARY: CVA Tenderness: no tenderness MUSCULOSKELETAL: Weight Bearing: able NEUROLOGICAL: Level of Consciousness: alert and follows commands Speech: clear SKIN: Skin Color: normal for race PSYCHIATRIC: Level of Consciousness: alert and follows commands Speech: clear CRITICAL CARE RESULTS: Recent Lab Results: I have reviewed these laboratory results: Urinalysis with Culture if Indicated 14-Jul-2022 22:12:00 ResultValue Color, Urine YELLOW Reference Range: STRAW,YELLOW Appearance, Urine CLEAR Specific Vidor, Urine 1.048 H pH, Urine 6.0 Protein, Urine NEGATIVE Glucose, Urine NEGATIVE Blood, Urine LARGE (3+) A Ketones, Urine NEGATIVE Bilirubin, Urine NEGATIVE Urobilinogen, Urine <2.0 Nitrite, Urine NEGATIVE Leukocyte Esterase, Urine NEGATIVE Urinalysis, Microscopic 14-Jul-2022 22:12:00 ResultValue White Cells 3 Red Blood Cells >182 A Epithelial Cells, Squamous 2 Influenza A/B,Covid 2019 PCR,Symptomatic 14-Jul-2022 20:30:00 ResultValue Fluid Source Nasal, Nasopharyngeal Influenza A PCR NOT DETECTED Reference Range: Not Detected Respiratory virus testing is performed routinely by PCR for Influenza A/B and RSV. Not De (more content not included)... Normal [facility] UA MICROSCOPICon 07-15-2022 RBC (U) [#/Vol] /uL Abnormal 0-5 [facility] Comment on above: Performed By: #### U AMIC #### [address] [id number] SQUAMOUS EPITH. CELLS 2 /HPF Normal [facility] Comment on above: Performed By: #### U AMIC #### [address] [id number] WBC 3 /HPF Normal 0-5 [facility] Comment on above: Performed By: #### U AMIC #### [address] [id number] URINALYSIS WITH CULTURE IF I NDICATEDon 07-15-2022 Appearance (U) CLEAR Normal CLEAR [facility] Comment on above: Performed By: #### U ARFX ####[address] [id number] Bilirubin Ql (U) Negative Normal NEGATIVE [facility] Comment on above: Performed By: #### U ARFX ####[address] [id number] Color (U) YELLOW Normal STRAW,YELLOW [facility] Comment on above: Performed By: #### U ARFX ####[address] [id number] Glucose Ql (U) Negative Normal NEGATIVE [facility] Comment on above: Performed By: #### U ARFX ####[address] [id number] Hemoglobin Ql (U) LARGE (3+) Abnormal NEGATIVE [facility] Comment on above: Performed By: #### U ARFX ####[address] [id number] Ketones Ql (U) Negative Normal NEGATIVE [facility] Comment on above: Performed By: #### U ARFX ####[address] [id number] Leukocyte esterase Test strip Ql (U) Negative Normal NEGATIVE [facility] Comment on above: Performed By: #### U ARFX ####[address] [id number] Nitrite Ql (U) Negative Normal NEGATIVE [facility] Comment on above: Performed By: #### U ARFX ####[address] [id number] pH (U) 6.0 [pH] Normal 5.0 - 8.0 [facility] Comment on above: Performed By: #### U ARFX ####[address] [id number] Protein Ql (U) Negative Normal NEGATIVE [facility] Comment on above: Performed By: #### U ARFX ####[address] [id number] Specific gravity (U) [Rel density] 1.048 High 1.005 - 1.035 [facility] Comment on above: Performed By: #### U ARFX ####[address] [id number] Urobilinogen (U) [Mass/Vol] mg/dL Normal 0.0 - 1.9 [facility] Comment on above: Performed By: #### U ARFX ####[address] [id number] CBC AND DIFFERENTIALon 07-14 % AUTOMATED IMMATURE GRAN 0.3 % Normal 0.0 - 0.9 [facility] Comment on above: Result Comment: Darcy ture Granulocyte Count (IG) includes promyelocytes, myelocytes and metamyelocytes but does not include bands. Percent differential counts (%) should be interpreted in the context of the absolute cell counts (cells/L). Performed By: #### C BCDF ####[address] [id number] Basophils (Bld) [#/Vol] 0.04 10*3/uL Normal 0.00 - 0.10 [facility] Comment on above: Performed By: #### C BCDF ####[address] [id number] Basophils/100 WBC (Bld) 0.5 % Normal 0.0 - 2.0 [facility] Comment on above: Performed By: #### C BCDF ####[address] [id number] Eosinophils (Bld) [#/Vol] 0.08 10*3/uL Normal 0.00 - 0.70 [facility] Comment on above: Performed By: #### C BCDF ####[address] [id number] Eosinophils/100 WBC (Bld) 1.1 % Normal 0.0 - 6.0 [facility] Comment on above: Performed By: #### C BCDF ####[address] [id number] Erythrocyte distribution width (RBC) [Ratio] 14.6 % High 11.5 - 14.5 [facility] Comment on above: Performed By: #### C BCDF ####[address] [id number] Hematocrit (Bld) [Volume fraction] 36.3 % Normal 36.0 - 46.0 [facility] Comment on above: Performed By: #### C BCDF ####[address] [id number] Hemoglobin (Bld) [Mass/Vol] 11.4 g/dL Low 12.0 - 16.0 [facility] Comment on above: Performed By: #### C BCDF ####[address] [id number] Lymphocytes (Bld) [#/Vol] 2.47 10*3/uL Normal 1.20 - 4.80 [facility] Comment on above: Performed By: #### C BCDF ####[facility] [place], [place] [id number] Lymphocytes/100 WBC (Bld) 32.5 % Normal 13.0 - 44.0 [facility] Comment on above: Performed By: #### C BCDF ####[facility] [place], [place] [id number] MCHC (RBC) [Mass/Vol] 31.4 g/dL Low 32.0 - 36.0 [facility] Comment on above: Performed By: #### C BCDF ####[address] [place], [place] [phone] MCV (RBC) [Entitic vol] 77 fL Low 80 - 100 [facility] Comment on above: Performed By: #### C BCDF ####[address] [id number] Monocytes (Bld) [#/Vol] 0.54 10*3/uL Normal 0.10 - 1.00 [facility] Comment on above: Performed By: #### C BCDF ####[address] [id number] Monocytes/100 WBC (Bld) 7.1 % Normal 2.0 - 10.0 [facility] Comment on above: Performed By: #### C BCDF ####[address] [id number] Neutrophils (Bld) [#/Vol] 4.46 10*3/uL Normal 1.20 - 7.70 [facility] Comment on above: Performed By: #### C BCDF ####[address] [id number] Neutrophils/100 WBC (Bld) 58.5 % Normal 40.0 - 80.0 [facility] Comment on above: Performed By: #### C BCDF ####[address] [id number] Platelets (Bld) [#/Vol] 397 10*3/uL Normal 150 - 450 [facility] Comment on above: Performed By: #### C BCDF ####[facility] [place], [place] [id number] RBC 4.69 x10E12/L Normal 4.00 - 5.20 [facility] Comment on above: Performed By: #### C BCDF ####[address] [id number] WBC (Bld) [#/Vol] 7.6 10*3/uL Normal 4.4 - 11.3 [facility] Comment on above: Performed By: #### C BCDF ####[address] [id number] COMPREHENSIVE PANELon 2022 Albumin [Mass/Vol] 4.6 g/dL Normal 3.4 - 5.0 [facility] Comment on above: Performed By: #### C MP #### [address] [id number] ALP [Catalytic activity/Vol] 83 U/L Normal 33 - 110 [facility] Comment on above: Performed By: #### C MP #### [address] [id number] ALT [Catalytic activity/Vol] 16 U/L Normal 7 - 45 [facility] Comment on above: Result Comment: Lyndsey ents treated with Sulfasalazine may generate falsely decreased results for ALT. Performed By: #### C MP #### [address] [id number] Anion gap [Moles/Vol] 13 mmol/L Normal 10 - 20 [facility] Comment on above: Performed By: #### C MP #### [address] [id number] AST [Catalytic activity/Vol] 15 U/L Normal 9 - 39 [facility] Comment on above: Performed By: #### C MP #### [address] [id number] Bilirubin [Mass/Vol] 0.4 mg/dL Normal 0.0 - 1.2 [facility] Comment on above: Performed By: #### C MP #### [address] [id number] Calcium [Mass/Vol] 9.8 mg/dL Normal 8.6 - 10.3 [facility] Comment on above: Performed By: #### C MP #### [address] [id number] Chloride [Moles/Vol] 104 mmol/L Normal 98 - 107 [facility] Comment on above: Performed By: #### C MP #### [address] [id number] Creatinine [Mass/Vol] 0.80 mg/dL Normal 0.50 - 1.05 [facility] Comment on above: Performed By: #### C MP #### [address] [id number] eGFR FEMALE >90 Normal >90 [facility] Comment on above: Result Comment: CALC ULATIONS OF ESTIMATED GFR ARE PERFORMED USING THE 2020 CKD-EPI STUDY REFIT EQUATION WITHOUT THE RACE VARIABLE FOR THE IDMS-TRACEABLE CREATININE METHODS. https://jasn.asnjournals.org/content/early/ASN.5969350 988 Performed By: #### C MP #### [address] [id number] Glucose [Mass/Vol] 83 mg/dL Normal 74 - 99 [facility] Comment on above: Performed By: #### C MP #### [address] [id number] HCO3 (Bld) [Moles/Vol] 26 mmol/L Normal 21 - 32 [facility] Comment on above: Performed By: #### C MP #### [address] [id number] Potassium [Moles/Vol] 3.8 mmol/L Normal 3.5 - 5.3 [facility] Comment on above: Performed By: #### C MP #### [address] [id number] Protein [Mass/Vol] 7.9 g/dL Normal 6.4 - 8.2 [facility] Comment on above: Performed By: #### C MP #### [address] [id number] Sodium [Moles/Vol] 139 mmol/L Normal 136 - 145 [facility] Comment on above: Performed By: #### C MP #### [address] [id number] Urea nitrogen [Mass/Vol] 11 mg/dL Normal 6 - 23 [facility] Comment on above: Performed By: #### C MP #### [address] [id number] Covid 19 Resultson 3 SARS-CoV-2 (COVID-19) RNA RADHA+probe Ql (Unsp spec) NEGATIVE COVID-19 Test Coronaviruses are common world-wide and are the cause of many common colds. SARS-COV2 is a new coronavirus that began circulating worldwide in 2019 so we are calling it COVID-19. It has been estimated that four out of five patients with COVID-19 will recover at home without the need for medical attention. Symptoms of COVID-19 may include cough, fever, shortness of breath, loss of taste or smell and other flu-like symptoms including chills, sore muscles, sore throat, and headache. Severe illness is more common in older people and people with other health problems such as high blood pressure, obesity, and immune system problems. If the test is positive, you have COVID-19. You will be contacted by the ordering physicians office and instructed to remain on home isolation, in accordance with CDC guidelines. You may also be contacted by the [facility] to see if any of your close contacts may have been exposed to the virus and need to quarantine. If the test is negative, you likely do not have COVID-19 at this time, but you still may have a different illness that can spread to other people (like Influenza, or the Flu) and could still be at risk for getting COVID-19. We recommend that you stay away from other people to limit the spread of illness until your symptoms are improving and you are fever-free for 24 hours without the use of fever lowering medications such as acetaminophen or ibuprofen. No test is 100% accurate so if you are still concerned you may have COVID-19, talk to your doctor about the need to continue to stay away from others. Medicines Unless your provider told you not to use the following: Acetaminophen (Tylenol and others) is generally safe. Anti-inflammatory medications, such as Ibuprofen (Advil or Motrin) or Naproxen (Aleve) can also be used. Zxzz-xng-jtntyez cough and cold medicines can be used according to the instructions on the package. Some idsp-okv-isvdymb medicines also contain acetaminophen. Make sure you are not taking more than your recommended dose. For those not hospitalized, there is no specific treatment available for this illness. Antibiotics do not treat Coronaviruses. Follow-Up Follow up with your doctor by scheduling a virtual visit or consider follow-up at one of our urgent care fever clinics. If you are having difficulty breathing, or are very weak and having difficulty standing, this is a medical emergency. Call 911 or have someone take you to the nearest emergency room immediately. If possible, wear a facemask. Additional guidance from the CDC for patients who tested POSITIVE for COVID-19 How to isolate: Isolate yourself in a specific room at home and limit your contact with others. Use a separate bathroom from other members of the household, when possible. Leave home only to get essential medical care. Do not go to work, school or public areas. Avoid using public transportation, ride-sharing, or taxis. Restrict contact with pets and other animals. If you must care for your pet or be around animals while you are sick, wash your hands before and after your interaction and wear a facemask. Make sure that shared spaces in the home have good airflow, such as by an air conditioner or an opened window, weather permitting. Personal Hygiene Procedures: Wear a face mask when in the same room as other people or pets. If a face mask interferes with your breathing, others should wear a mask when sharing space with you. Frequent hand-washing: wash your hands with soap and water for at least 20 seconds. If soap and water are not available, use alcohol-based hand automation application engineer. Avoid touching your eyes, nose, and mouth with unwashed hands. Household Hygiene Procedures: Avoid sharing personal household items such as dishes, glassware, cups, eating utensils, towels or bedding with other people or pets in your home. After use, these items should be washed with soap and hot water. Disinfect all high-touch surfaces every day with antibacterial cleaning solutions such as Lysol wipes, bleach, cleansers, etc. High-touch surfaces include tabletops, doorknobs, bathroom fixtures, toilets, phones, keyboards, tablets and bedside tables. Immediately clean any surfaces that may have blood, poop or body fluids on them, using antibacterial cleaning solutions such as Lysol wipes, bleach, cleansers, etc. If clothing or bedding come into contact with blood, poop or body fluids, they should be washed immediately. Follow the directions on the laundry detergent and clothing labels but hot water is recommended when possible. Stopping home isolation precautions: If possible, consult your doctor before stopping home isolation precautions. According to the CDC, you can discontinue home isolation precautions when you have met both of these criteria: Your fever and respiratory symptoms have been gone for 24 khris (more content not included)... Normal [facility] HCG,BETA-QUANTITATIVEon 06-29 HCG,BETA-QUANTITATIV E <2 Normal [facility] Comment on above: Result Comment: . Total HCG measurement is performed using the [employer] Access Immunoassay which detects intact HCG and free beta HCG subunit. . This test is not indicated for use as a tumor marker. HCG testing is performed using a different test methodology at [facility] than other [facility]. Direct result comparison should only be made within the same method. REF VALUES NON FEMALE <5 MALES <5 Performed By: #### H CGQU #### [address] [id number] INFLUENZA A/B, COVID 2019 PC R,SYMPTOMATICon 07-14-2022 Lab Specimen Source Nasal, Nasopharyngeal Normal [facility] Comment on above: Performed By: #### C OINP #### [address] [id number] INFLUENZA A, PCR Not detected Normal Not Detected [facility] Comment on above: Result Comment: Resp iratory virus testing is performed routinely by PCR for Influenza A/B and RSV. Not Detected results do not preclude Influenza A/B or RSV infections since the adequacy of sample collection or low viral burden may impact the clinical sensitivity of this test method. Performed By: #### C OINP #### [address] [id number] INFLUENZA B, PCR Not detected Normal Not Detected [facility] Comment on above: Result Comment: Resp iratory virus testing is performed routinely by PCR for Influenza A/B and RSV. Not Detected results do not preclude Influenza A/B or RSV infections since the adequacy of sample collection or low viral burden may impact the clinical sensitivity of this test method. Performed By: #### C OINP #### [address] [id number] SARS-CoV-2 (COVID-19) RNA RADHA+probe Ql (Unsp spec) Not detected Normal Not Detected [facility] Comment on above: Result Comment: . This test has received [facility] Emergency Use Authorization (EUA) and has been verified by [facility]. This test is only authorized for the duration of time that circumstances exist to justify the authorization of the emergency use of in vitro diagnostic tests for the detection of SARS-CoV-2 virus and/or diagnosis of COVID-19 infection under section 564(b)(1) of the Act, 21 U.S.C. 360bbb-3(b)(1), unless the authorization is terminated or revoked sooner. [facility] is certified under CLIA-88 as qualified to perform high complexity testing. Testing is performed in the [facility] laboratory located at [address] [place], [place] [address]. SARS-CoV-2/Flu/RSV Multiplex Test: Fact sheet for providers: https://www.fda.gov/media/826819/download Fact sheet for patients: https://www.fda.gov/media/716710/download Performed By: #### C OINP #### [facility] [address] [place], [place] [id number] LACTATEon 07-14-2022 Lactate [Moles/Vol] 1.2 mmol/L Normal 0.4 - 2.0 [facility] Comment on above: Result Comment: Eva puncture immediately after or during the administration of Metamizole may lead to falsely low results. Testing should be performed immediately prior to Metamizole dosing. Performed By: #### L ACT #### [facility] [address] [place], [place] [id number] LIPASEon 07-14-2022 Lipase [Catalytic activity/Vol] 16 U/L Normal 9 - 82 [facility] Comment on above: Result Comment: Eva puncture immediately after or during the administration of Metamizole may lead to falsely low results. Testing should be performed immediately prior to Metamizole dosing. J-xzpwnf-e-benzoquinone imine (metabolite of Acetaminophen) will generate erroneously low results in samples for patients that have taken toxic doses of acetaminophen. Performed By: #### L IPAS ####[facility] [place], [place] [id number] Risk Screen - Adult Emergenc yon 07-14-2022 Risk Screen - Adult Emergency Preferred Language: Preferred Language: Preferred Language for Discussing Health Care (patient/designee)[place]an Patient Preferred Pharmacy: Patient Preferred Pharmacy Statement: I have reviewed and updated the patient's preferred pharmacy selection for today's visit. Advanced Directives: Advance Directive/DNRno Family Violence Adult: Abuse Screen: Are you or have you been threatened or abused physically, emotionally, or sexually by anyoneno Learning Assessment (Patient): Learning Assessment (Patient): Patient is Able to be Assessed for Learningyes Factors Influencing Readiness to Learnacuteness of illness; anxiety; pain Factors that Impact Ability to Learnacuteness of illness Devices/Methods Used to Communicatecommunication board Learning Preferencesaudio; verbal instruction; written material Cultural Considerationsnone Developmental Considerationsnone Amish Considerationsnone Learning Assessment (Other Learner): Learning Assessment (Other Learner): Other learner availableno Pressure Injury/TB/Substance: Pressure Injury: Pressure Injury Present on Admissionno Do you have a coughno Smoking Statusnever smoker Alcohol Usedenies Drug Usedenies Admission Risk Screen: Significant IndicatorsComplete CAGE: CAGE: Is this an injured patient at a Trauma Center ([facility]/[place]): no Electronic Signatures: Anca Calhoun (RN) (Signed 14-Jul-2022 20:08) Authored: Preferred Language, Patient Preferred Pharmacy, Advanced Directives, Family Violence Adult, Learning Assessment (Patient), Learning Assessment (Other Learner), Pressure Injury/TB/Substance, Pressure Injury, CAGE Last Updated: 14-Jul-2022 20:08 by Anca Calhoun (RN) Normal [facility] Triage - EDon 07-14-2022 Triage - ED Quick Triage: Are You no Have You Given In The Last 6 Weeksno Are You Currently Breastfeedingno Chart Review: PRIMARY ASSESSMENT SUSSY CRANE's primary assessment is Within Defined Limits. The airway is open and patent. Breathing spontaneous and unlabored with clear breath sounds bilaterally. Circulation is normal with good peripheral pulses. Skin is warm and dry and color is normal for race. ARRIVAL INFORMATION Means of Arrival: Ambulatory Mode of Arrival: private vehicle Arrival From: home Accompanied By: self Language: Spoken Language Preferred: Singaporean Reading Language Preferred: [place]an [facility] Ward Clerk Requested: no conference planning manager was requested MDRO: History of MDRO: no Present on Arrival: Device Present on Arrival to ED: no Pressure Ulcer Present on Arrival to ED: no CHIEF COMPLAINT SUSSY CRANE is a Female patient with a chief complaint of abdominal pain. Triage Date/Time: 14-Jul-2022 20:06 MELO: 3 Pain Rating (0-10): 7 = Severe Vital Signs: Temperature: 97.5F ( 36.4C) taken temporal Blood Pressure: 144/69 Mean: Heart Rate: 82 Respiratory Rate: 18 Pulse Oximetry: 98% on room air, no respiratory support. Height: 5 feet 5.00 inches. 165.1 CM Weight: 169.7 pounds. Calculated 77.0 kg. (stated) Calculated BMI (kg/m2): 28.248 Calculated BSA (m2) 1.88 Kelby Coma Scale: Best Eye Response: (E4) spontaneous Best Motor Response: (M6) obeys commands Best Verbal Response: (V5) oriented Kelby Score: 15 Cough lasting greater than 3 weeks: no Allergies: no Patient has homicidal thoughts: no Symptoms Are POSITIVE For: nausea. Symptoms Are Negative For: anorexia, constipation, diaphoresis, diarrhea, distention, fever, rectal blood and vomiting. Risk Screens Suicide Risk Screen In the Past Month: Have you wished you were or wished you could go to sleep and not wake up no In the Past Month: Have you had any actual thoughts of killing yourself no In Your Lifetime: Have you ever done anything, started to do anything, or prepared to do anything to end your life no Sanford Fall Scale Screening Has the patient fallen before (or is the patient in the ED as a result of a fall) has not had a fall Does the patient have an impaired gait does not have impaired gait Is the patient cognitively impaired not cognitively impaired Interventions: Sanford Fall Interventions: LOW INTERVENTIONS: *patient oriented to surroundings and call system, * patient/family falls education completed and documented, *patients fall status communicated during bedside handoff, *whiteboard updated, *mode of toileting discussed with patient, *bed in low position with brakes locked, *call light in reach, * non-skid footwear PAST MEDICAL HISTORY Immunization History: Last Known Tetanus Immunization: Unknown TRAVEL HISTORY Travel History Coronavirus Screening: no exposure or symptoms Travel Exposure History: NO travel to International locations in the past 30 days PAIN Pain Scale Used: CARMENCITA Pain Rating (0-10): 7 = Severe Past Medical History: Past Medical History Reviewedyes Electronic Signatures: Anca Calhoun (EMELIA) (Signed 14-Jul-2022 20:08) Entered: Risk Screens, Pain, Arrival, ABCD, Immunizations, Travel History, Chart Review, Scores, Past Medical History Authored: Quick Triage, Risk Screens, Pain, Arrival, ABCD, Immunizations, Travel History, Chart Review, Scores, Past Medical History Raf Lainez (EMELIA) (Signed 14-Jul-2022 20:20) Authored: Quick Triage Last Updated: 14-Jul-2022 20:20 by Raf Lainez (RN) Normal [facility] XR HIP GENERAL 3V PELV/AP/LA T RIGHTon 07-08-2022 [facility] XR WRIST RIGHT (MIN 3 VIEWS) on 07-05-2022 XR WRIST RIGHT (MIN 3 VIEWS) EXAMINATION: XRAY VIEWS OF THE RIGHT WRIST 07/05/2022 12:21 pm COMPARISON: None. HISTORY: ORDERING SYSTEM PROVIDED HISTORY: right wrist pain TECHNOLOGIST PROVIDED HISTORY: Reason for exam:->right wrist pain Is the patient ?->No What reading provider will be dictating this exam?->CRC FINDINGS: Carpal bones and alignment are maintained. Distal radius and ulna are intact. No acute fracture or dislocation. IMPRESSION: Normal wrist radiographs Interpreted by: Jules Davis MD Signed by: Jules Davis MD 07/05/22 Final result Normal [facility] PT Initial Evaluationon PT Initial Evaluation No report was sent Normal [facility] Office Visit (Family Rosannain e)on 05-19-2022 Follow-up visit Diagnoses/Problems Cellulitis (682.9) (L03.90) Never a smoker Wound infection (958.3) (T14.8XXA,L08.9) Hip pain, bilateral (719.45) (M25.551,M25.552) Orders Back pain, thoracic, Cervical radiculopathy, Hip pain, bilateral Some eating tips that can help you lose weight.; Status:Complete; Done: [id number] Physical Therapy - General Referral Evaluation and Treatment Evaluate AND Treat Status: Hold For - Scheduling Requested for: [id number] SocHx: Never a smoker Tobacco Use Screening; Status:Complete; Done: [id number] Wound infection Start: Sulfamethoxazole-Trimethopr im 800-160 MG Oral Tablet; TAKE 1 TABLET TWICE DAILY UNTIL FINISHED Chief Complaint incision from surgery infected abdominal surgery Adult Risk Screening Advance Care Planning discussed and documented in the medical record, patient did not wish or was not able to name a surrogate decision maker or provide an advance care plan. History of Present Illness Patient is here after having laparoscopic abdominal examination. They were looking for endometriosis was diagnosed with adenomyosis. REVIEW OF SYSTEMS: 12 systems negative except for those mentioned in the HPI. PHYSICAL EXAMINATION: Constitutional: The patient is alert, in no acute distress. Eyes: Extraocular movements are intact. ENT: external ear canals patent Neck: no JVD. Heart: no JVD Lungs: Normal respiration without stridor or nasal flaring Psychiatric: Good judgment and insight. Normal affect and mood. Skin: C shaped incision underneath the umbilicus with some honey crusting Assessment: per EMR Plan: Go on Bactrim for 14 days follow-up with surgeon This dictation was created using nprogresson dictation and may contain errors Active Problems Abnormal ultrasound of endometrium (793.5) (R93.5) Abnormal uterine bleeding (AUB) (626.9) (N93.9) Acid reflux (530.81) (K21.9) Acne vulgaris (706.1) (L70.0) Acute lower UTI (599.0) (N39.0) Acute urinary tract infection (599.0) (N39.0) Adhesive capsulitis of left shoulder (726.0) (M75.02) Anal fissure (565.0) (K60.2) Anxiety and depression (300.00,311) (F41.9,F32.A) AOM (acute otitis media) (382.9) (H66.90) Back pain, thoracic (724.1) (M54.6) Biceps tendinitis (726.12) (M75.20) Bipolar 1 disorder, depressed, moderate (296.52) (F31.32) Blood in urine (599.70) (R31.9) Cervical radiculopathy (723.4) (M54.12) Cervical strain (847.0) (S16.1XXA) Change in bowel habits (787.99) (R19.4) Chronic right shoulder pain (719.41,338.29) (M25.511,G89.29) Constipation, chronic (564.00) (K59.09) Contact hypersensitivity (692.9) (L23.9) Contraception management (V25.9) (Z30.9) Contusion of left elbow, initial encounter (923.11) (S50.02XA) Dysmenorrhea (625.3) (N94.6) Eczema (692.9) (L30.9) Encounter for emergency contraceptive counseling (V25.03) (Z30.09) Endometrial polyp (621.0) (N84.0) 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) Foot pain (729.5) (M79.673) Hematuria (599.70) (R31.9) Herpes simplex virus (HSV) infection (054.9) (B00.9) Hip flexor tightness (727.81) (M24.559) Hip pain, bilateral (719.45) (M25.551,M25.552) Impetigo (684) (L01.00) Intrinsic atopic dermatitis (691.8) (L20.84) Joint pain, hip (719.45) (M25.559) Labral tear of shoulder (840.8) (S43.439A) Low back pain with radiation (724.2) (M54.50) Lower abdominal pain (789.09) (R10.30) Nausea in adult (787.02) (R11.0) Neck pain (723.1) (M54.2) Never a smoker Non-recurrent acute suppurative otitis media of left ear without spontaneous rupture of tympanic membrane (382.00) (H66.002) Numbness and tingling (782.0) (R20.0,R20.2) Nummular eczematous dermatitis (692.9) (L30.0) Overweight with body mass index (BMI) of 27 to 27.9 in adult (278.02,V85.23) (E66.3,Z68.27) Pelvic pain in female (625.9) (R10.2) Polyarthralgia (719.49) (M25.50) Postoperative wound infection (998.59) (T81.49XA) Rash (782.1) (R21) Rash (782.1) (R21) Raynaud phenomenon (443.0) (I73.00) Recurrent UTI (599.0) (N39.0) Screen for STD (sexually transmitted disease) (V74.5) (Z11.3) Shingles (053.9) (B02.9) Shoulder impingement (726.2) (M75.40) Shoulder pain (719.41) (M25.519) Strain of shoulder, right, sequela (905.7) (S46.911S) Superior glenoid labrum lesion of right shoulder, subsequent encounter (V58.89,840.7) (S43.431D) Superior glenoid labrum lesion of shoulder, unspecified laterality, subsequent encounter (V58.89,840.7) (S43.439D) Surgery, elective (V50.9) (Z41.9) Surveillance for Depo-Provera contraception (V25.49) (Z30.42) Traumatic complete tear of right rotator cuff, subsequent encounter (V58.89,840.4) (S46.011D) Trigger point of right shoulder region (719.41) (M25.511) Trochanteric bursitis of both hips (726.5) (M70.61,M70.62) Trochanteric bursitis of both hips (726.5) (M70.61,M70.62) Unwanted fertility (V25.09) (Z30.09) Viral upper respiratory tract infection (465.9) (J06.9) Vitamin D deficiency (268.9) (E55.9) (more content not included)... Normal [facility] Tobacco Screening.on 022 Adult depression screening assessment No [facility] [employer] DO Work Phone: Fall risk assessment a) No falls within the last year [facility] DO Work Phone: Tobacco use status CPHS b) No [facility] DO Work Phone: C-REACTIVE PROTEIN (CRP)on 1 CRP [Mass/Vol] 0.5 mg/dL <0.9 mg/dL [facility] CCP ANTIBODY IGGon 2 Cyclic citrullinated peptide IgG Qn <20 Units [facility] Comprehensive metabolic 2000 panelon 03-10-2022 Albumin [Mass/Vol] 4.3 g/dL 3.9 - 4.9 g/dL [facility] ALP [Catalytic activity/Vol] 75 U/L 34 - 123 U/L [facility] ALT [Catalytic activity/Vol] 16 U/L 7 - 38 U/L [facility] Anion gap [Moles/Vol] 12 mmol/L 9 - 18 mmol/L [facility] AST [Catalytic activity/Vol] 20 U/L 13 - 35 U/L [facility] Bilirubin [Mass/Vol] Low 0.2 - 1 .3 mg/dL [facility] Calcium [Mass/Vol] 9.6 mg/dL 8.5 - 10. 2 mg/dL [facility] Chloride [Moles/Vol] 105 mmol/L 97 - 10 5 mmol/L [facility] CO2 [Moles/Vol] 23 mmol/L 22 - 30 mmol/L [facility] Creatinine [Mass/Vol] 0.76 mg/dL 0.58 - 0.96 mg/dL [facility] Estimated Glomerular Filtration Rate 112 mL/min/1.73m >=60 mL/min/1.73m [facility] Glucose [Mass/Vol] 63 mg/dL Low 74 - 99 mg/dL [facility] Potassium [Moles/Vol] 4.6 mmol/L 3.7 - 5.1 mmol/L [facility] Protein [Mass/Vol] 7.2 g/dL 6.3 - 8.0 g/dL [facility] Sodium [Moles/Vol] 140 mmol/L 136 - 144 mmol/L [facility] Urea nitrogen [Mass/Vol] 7 mg/dL 7 - 21 mg/dL [facility] Cyclic citrullinated peptide IgG Qnon 03-10-2022 CCP Antibody IgG Qualitative Negative Negative [facility] DNA AB DS + CONF Don 03-10 DNA double strand Ab IA Qn (S) <30 IU/mL [facility] HEP B CORE AB TOTALon 2021 HBV core Ab Ql (S) Negative Negative [facility] HEP B SURF AB QUANTon 2021 HBV surface Ab Qn (S) Low >=12.00 mIU/mL [facility] HEP B SURF AG CONFRMon 03-10 HBV surface Ag Ql (S) Negative Negative, Test not Indicated [facility] HEP C AB IA W/CONF SCRNon HCV Ab Ql (S) Negative Negative [facility] RHEUMATOID FACTOR BLon 03-10 Rheumatoid factor Qn <16 IU/mL [facility] TSH BLDon 03-10-2022 TSH Qn 0.497 m[IU]/L 0.270 - 4.200 mIU/L [facility] VITAMIN B12 BLOODon 03-10-20 Cobalamin (Vitamin B12) [Mass/Vol] 329 pg/mL 232 - 1,245 pg/mL [facility] CBC W Auto Differential pane l (Bld)on 03-09-2022 Abs Immature Gran <0.10 k/uL [facility] Basophils (Bld) [#/Vol] 0.03 10*3/uL <0.11 k/uL [facility] Basophils/100 WBC (Bld) 0.5 % [facility] Differential cell count method Nom (Bld) Auto [facility] Eosinophils (Bld) [#/Vol] 0.09 10*3/uL <0.46 k/uL [facility] Eosinophils/100 WBC (Bld) 1.4 % [facility] Erythrocyte distribution width (RBC) [Ratio] 14.2 % 11.5 - 15.0 % [facility] Hematocrit (Bld) [Volume fraction] 35.1 % Low 36.0 - 46.0 % [facility] Hemoglobin (Bld) [Mass/Vol] 10.0 g/dL Low 11.5 - 15.5 g/dL [facility] Immature Gran % 0.2 % [facility] Lymphocytes (Bld) [#/Vol] 2.77 10*3/uL 1.00 - 4.00 k/uL [facility] Lymphocytes/100 WBC (Bld) 42.0 % [facility] MCH (RBC) [Entitic mass] 22.5 pg Low 26.0 - 34.0 pg [facility] MCHC (RBC) [Mass/Vol] 28.5 g/dL Low 30.5 - 36.0 g/dL [facility] MCV (RBC) [Entitic vol] 78.9 fL Low 80.0 - 100.0 fL [facility] Monocytes (Bld) [#/Vol] 0.51 10*3/uL <0.87 k/uL [facility] Monocytes/100 WBC (Bld) 7.7 % [facility] Neutrophils (Bld) [#/Vol] 3.18 10*3/uL 1.45 - 7.50 k/uL [facility] Neutrophils/100 WBC (Bld) 48.2 % [facility] Nucleated RBC (Bld) [#/Vol] <0.01 k/uL [facility] Nucleated RBC/100 WBC (Bld) [Ratio] 0.0 /100 WBC [facility] Platelet mean volume (Bld) [Entitic vol] 9.8 fL 9.0 - 12.7 fL [facility] Platelets (Bld) [#/Vol] 495 10*3/uL High 150 - 400 k/uL [facility] RBC (Bld) [#/Vol] 4.45 10*6/uL 3.90 - 5.2 0 m/uL [facility] WBC (Bld) [#/Vol] 6.59 10*3/uL 3.70 - 11. 00 k/uL [facility] ESR Westergren method (Bld) [Velocity]on 03-09-2022 ESR (Bld) [Velocity] 30 mm/h High 0 - 20 mm/hr Cl [facility] No Panel Informationon 03-09 [facility] HCG ( test) Ql (U)o n 03-06-2022 [facility] HCG QUALITATIVE, URINEon HCG ( test) Ql (U) Negative NEGATIVE [facility] No Panel Informationon 03-06 Interpretation and review of laboratory results Abnormal [facility] URINALYSIS, MACROon 03-06-20 22 Bilirubin Ql (U) Negative NEGATIVE [facility] Clarity (U) CLEAR CLEAR [facility] Color (U) YELLOW YELLOW [facility] Glucose Test strip (U) [Mass/Vol] Negative NEGATIVE mg/dl [facility] Hemoglobin Ql (U) MODERATE Abnormal NEGATIVE [facility] Ketones (U) [Mass/Vol] TRACE Abnormal NEGATIVE mg/dl [facility] Leukocyte esterase Test strip Ql (U) TRACE Abnormal NEGATIVE [facility] Nitrite Ql (U) Negative NEGATIVE [facility] pH (U) 7.0 [pH] 5.0 - 7.0 [facility] Protein Ql (U) Negative NEGATIVE mg/dl [facility] Specific gravity (U) [Rel density] 1.025 1.010 - 1.025 [facility] Urobilinogen (U) [Mass/Vol] 0.2 mg/dL [facility] URINE HCG QUALon 03-06-2022 Beta HCG ( test) Ql (U) Negative Normal NEGATIVE [facility] Comment on above: Performed By: #### U MAC, [facility], [facility] #### Testing performed at [address] [address] URINE MACROSCOPICon 03-06-20 Bilirubin Ql (U) Negative Normal NEGATIVE [facility] Comment on above: Performed By: #### U MAC, [facility], [facility] #### Testing performed at [address] [address] Clarity (U) CLEAR Normal CLEAR [facility] Comment on above: Performed By: #### U MAC, [facility], [facility] #### Testing performed at [address] [address] Color (U) YELLOW Normal YELLOW [facility] Comment on above: Performed By: #### U MAC, [facility], [facility] #### Testing performed at [address] [address] Glucose Ql (U) Negative Normal NEGATIVE [facility] Comment on above: Performed By: #### U MAC, [facility], [facility] #### Testing performed at [address] [address] pH (U) 7.0 [pH] Normal 5.0-7.0 [facility] Comment on above: Performed By: #### U MAC, [facility], [facility] #### Testing performed at [address] [address] URINE HEMOGLOBIN MODERATE Abnormal NEGATIVE [facility] Comment on above: Performed By: #### U MAC, [facility], [facility] #### Testing performed at [address] [address] URINE KETONE TRACE Abnormal NEGATIVE [facility] Comment on above: Performed By: #### U MAC, [facility], [facility] #### Testing performed at [address] [address] URINE LEUKOTEST TRACE Abnormal NEGATIVE [facility] Comment on above: Performed By: #### U MAC, [facility], [facility] #### Testing performed at [address] [address] URINE NITRATES Negative Normal NEGATIVE [facility] Comment on above: Performed By: #### U MAC, [facility], [facility] #### Testing performed at [address] [address] URINE SPEC GRAVITY 1.025 Normal 1.010-1.025 [facility] Comment on above: Performed By: #### U MAC, [facility], [facility] #### Testing performed at [address] [address] URINE TOTAL PROTEIN Negative Normal NEGATIVE [facility] Comment on above: Performed By: #### U MAC, [facility], [facility] #### Testing performed at [address] [address] Urobilinogen Qn (U) 0.2 {Jessica'U}/dL Normal 0.2-1.0 [facility] Comment on above: Performed By: #### U MAC, [facility], [facility] #### Testing performed at [address] [address] URINE MICROSCOPICon 03-06-20 22 BACTERIA 1+ Abnormal NEGATIVE [facility] Comment on above: Performed By: #### U MAC, [facility], [facility] #### Testing performed at [address] [address] CASTS OCCASIONAL Abnormal NONE [facility] Comment on above: Result Comment: HYAL INE Performed By: #### U MAC, [facility], [facility] #### Testing performed at [address] [address] CRYSTAL NONE Normal [facility] Comment on above: Performed By: #### U MAC, [facility], [facility] #### Testing performed at [address] [address] Epithelial cells LM Ql (Urine sed) 10 TO 20 Normal [facility] Comment on above: Performed By: #### U MAC, [facility], [facility] #### Testing performed at [address] [place] [address] Mucus Ql (Urine sed) TRACE Abnormal NEGATIVE [facility] Comment on above: Performed By: #### U MAC, [facility], [facility] #### Testing performed at [address] [address] URINE COMMENT POSSIBLY CONTAMINATE D SPECIMEN, CULTURE MUST BE ORDERED SEPARATELY IF DEEMED NECESSARY. Normal [facility] Comment on above: Performed By: #### U MAC, [facility], [facility] #### Testing performed at [address] [address] URINE RBC'S 1 TO 5 Normal NEGATIVE [facility] Comment on above: Performed By: #### U RENETTA CINDY LIANG #### Testing performed at [address] [address] URINE WBC'S 1 TO 5 Normal NEGATIVE [facility] Comment on above: Performed By: #### U RENETTA AZUL, [facility] #### Testing performed at [address] [address] Bacteria LM.HPF (Urine sed) [#/Area] 1+ Abnormal NEGATIVE [facility] Casts LM.LPF (Urine sed) [#/Area] OCCASIONAL Abnormal NONE /LPF [facility] Comment on above: HYALINE Crystals LM Nom (Urine sed) NONE NONE [facility] Epithelial cells LM Ql (Urine sed) 10 TO 20 /HPF [facility] Mucus Ql (Urine sed) TRACE Abnormal NEGATIVE [facility] RBC LM.HPF (Urine sed) [#/Area] 1 TO 5 NEGATIVE /HPF [facility] Urine sediment comments LM Juve (Urine sed) POSSIBLY CONTAMINATED SPECIMEN, CULTURE MUST BE ORDERED SEPARATELY IF DEEMED NECESSARY. [facility] WBC LM.HPF (Urine sed) [#/Area] 1 TO 5 NEGATIVE /HPF [facility] Tobacco Screening.on 022 Adult depression screening assessment No [facility] DO Work Phone: Fall risk assessment a) No falls within the last year [facility] DO Work Phone: Tobacco use status CPHS b) No [facility] DO Work Phone: Basic Metabolic Panelon 12-27 Anion gap [Moles/Vol] 12 mmol/L Normal -15 [facility] Comment on above: Performed By: #### B #### [facility] [address] [place] [address] Calcium [Mass/Vol] 9.9 mg/dL Normal 8.5-9.9 [facility] Comment on above: Performed By: #### B MP #### [facility] [address] [place] [address] Chloride [Moles/Vol] 103 mmol/L Normal 95-107 [facility] Comment on above: Performed By: #### B MP #### [facility] [address] [place] [address] CO2 [Moles/Vol] 25 mmol/L Normal 20-31 [facility] Comment on above: Performed By: #### B MP #### [facility] [address] [place] [address] Creatinine [Mass/Vol] 0.77 mg/dL Normal 0.50-0.90 [facility] Comment on above: Performed By: #### B MP #### [facility] [address] [place] [address] GFR >60.0 Normal >60 [facility] Comment on above: Result Comment: >60 mL/min/1.73m2 EGFR, calc. for ages 18 and older using the MDRD formula (not corrected for weight), is valid for stable renal function. Performed By: #### B MP #### [facility] [address] [place] [address] GFR/1.73 sq M.predicted among blacks MDRD (S/P/Bld) [Vol rate/Area] mL/min/{1.73_m2} Normal >60 [facility] Comment on above: Result Comment: >60 mL/min/1.73m2 EGFR, calc. for ages 18 and older using the MDRD formula (not corrected for weight), is valid for stable renal function. Performed By: #### B MP #### [facility] [address] [place] [address] Glucose [Mass/Vol] 84 mg/dL Normal 70-99 [facility] Comment on above: Performed By: #### B MP #### [facility] [address] [place] [address] Potassium [Moles/Vol] 3.8 mmol/L Normal 3.4-4.9 [facility] Comment on above: Performed By: #### B MP #### [facility] [address] [place] [address] Sodium [Moles/Vol] 140 mmol/L Normal 135-144 [facility] Comment on above: Performed By: #### B MP #### [facility] [address] [place] [address] Urea nitrogen [Mass/Vol] 15 mg/dL Normal 6-20 [facility] Comment on above: Performed By: #### B MP #### [facility] [address] [place] [address] Anion gap [Moles/Vol] 12 mmol/L [facility] Calcium [Mass/Vol] 9.9 mg/dL 8.5 - 9.9 mg/dL [facility] Chloride [Moles/Vol] 103 mmol/L [facility] CO2 [Moles/Vol] 25 mmol/L [facility] Creatinine [Mass/Vol] 0.77 mg/dL 0.5 - 0.9 mg/dL [facility] GFR >60.0 60 - PINF [facility] [employer] [facility] Comment on above: >60 mL/min/1.73m2 EG FR, calc. for ages 18 and older using the MDRD formula (not corrected for weight), is valid for stable renal function. GFR Non- >60.0 60 - PINF [facility] [employer] [facility] Comment on above: >60 mL/min/1.73m2 EG FR, calc. for ages 18 and older using the MDRD formula (not corrected for weight), is valid for stable renal function. Glucose [Mass/Vol] 84 mg/dL 70 - 99 mg/dL [facility] Potassium [Moles/Vol] 3.8 mmol/L [facility] Sodium [Moles/Vol] 140 mmol/L [facility] [employer] Urea nitrogen (BldV) [Mass/Vol] 15 mg/dL 6 - 20 mg/dL [facility] CBC With Platelet and Differ entialon 01-14-2022 Abs Imm Granulocytes 0.0 K/uL Normal [facility] Comment on above: Performed By: #### C BCWD #### [facility] [address] [place] [address] Basophils (Bld) [#/Vol] 0.0 10*3/uL Normal 0.0-0.1 [facility] Comment on above: Performed By: #### C BCWD #### [facility] [address] [place] [address] Basophils/100 WBC (Bld) 0.3 % Normal 0.1-1.2 [facility] Comment on above: Performed By: #### C BCWD #### [facility] [address] [place] [address] Eosinophils (Bld) [#/Vol] 0.0 10*3/uL Normal 0.0-0.4 [facility] Comment on above: Performed By: #### C BCWD #### [facility] [address] [place] [address] Eosinophils/100 WBC (Bld) 0.4 % Low 0.7-5.8 [facility] Comment on above: Performed By: #### C BCWD #### [facility] [address] [place] [address] Erythrocyte distribution width (RBC) [Ratio] 14.8 % Critically high 11.7-14.4 [facility] [facility] Comment on above: Performed By: #### C BCWD #### [facility] [address] [place] [address] Hematocrit (Bld) [Volume fraction] 29.7 % Low 37.0-47.0 [facility] Comment on above: Performed By: #### C BCWD #### [facility] [address] [place] [address] Hemoglobin (Bld) [Mass/Vol] 9.2 g/dL Low 11.2-15.7 [facility] Comment on above: Performed By: #### C BCWD #### [facility] [address] [place] [address] Imm Granulocytes 0.4 % Normal [facility] Comment on above: Performed By: #### C BCWD #### [facility] [address] [place] [address] Lymphocytes (Bld) [#/Vol] 3.0 10*3/uL Normal 1.2-3.7 [facility] Comment on above: Performed By: #### C BCWD #### [facility] [address] [place] [address] Lymphocytes/100 WBC (Bld) 27.9 % Normal [facility] Comment on above: Performed By: #### C BCWD #### [facility] [address] [place] [address] MCH (RBC) [Entitic mass] 24.6 pg Low 25.6-32.2 [facility] Comment on above: Performed By: #### C BCWD #### [facility] [address] [place] [address] MCHC 31.0 % Low 32.2-35.5 [facility] Comment on above: Performed By: #### C BCWD #### [facility] [address] [place] [address] MCV (RBC) [Entitic vol] 79.4 fL Normal 79.4-94.8 [facility] Comment on above: Performed By: #### C BCWD #### [facility] [address] [place] [address] Monocytes (Bld) [#/Vol] 0.7 10*3/uL Normal 0.2-0.9 [facility] Comment on above: Performed By: #### C BCWD #### [facility] [address] [place] [address] Monocytes/100 WBC (Bld) 6.4 % Normal 4.7-12.5 [facility] Comment on above: Performed By: #### C BCWD #### [facility] [address] [place] [address] Neutrophils (Bld) [#/Vol] 6.9 10*3/uL Critically high 1.6-6.1 [facility] Comment on above: Performed By: #### C BCWD #### [facility] [address] [place] [address] Neutrophils/100 WBC (Bld) 64.6 % Normal 34.0-71.1 [facility] Comment on above: Performed By: #### C BCWD #### [facility] [address] [place] [address] Platelets (Bld) [#/Vol] 371 10*3/uL Critically high 182-369 [facility] Comment on above: Performed By: #### C BCWD #### [facility] [address] [place] [address] RBC (Bld) [#/Vol] 3.74 10*6/uL Low 3.93-5.22 [facility] Comment on above: Performed By: #### C BCWD #### [facility] [address] [place] [address] WBC (Bld) [#/Vol] 10.6 10*3/uL Critically high 4.0-10.0 [facility] Comment on above: Performed By: #### C BCWD #### [facility] [address] [place] [address] CBC with Auto Differentialon 01-14-2022 Basophils (Bld) [#/Vol] 0.0 10*3/uL 0 - 0.1 K/uL [employer] Basophils/100 WBC (Bld) 0.3 % 0.1 - 1.2 % [employer] Eosinophils (Bld) [#/Vol] 0.0 10*3/uL 0 - 0.4 K/uL [facility] [employer] [facility] Eosinophils/100 WBC (Bld) 0.4 % Low 0.7 - 5.8 % [employer] Hematocrit (Bld) [Volume fraction] 29.7 % Low 37 - 47 % [facility] [employer] Hemoglobin (Bld) [Mass/Vol] 9.2 g/dL Low 11.2 - 15.7 g/dL [facility] Immature granulocytes (Bld) [#/Vol] 0.0 10*3/uL [facility] Immature granulocytes/100 WBC (Bld) 0.4 % [facility] Interpretation and review of laboratory results Abnormal [facility] Lymphocytes (Bld) [#/Vol] 3.0 10*3/uL 1.2 - 3.7 K/uL [facility] Lymphocytes/100 WBC (Bld) 27.9 % [facility] MCH (RBC) [Entitic mass] 24.6 pg Low 25.6 - 32.2 pg [facility] MCHC (RBC) [Mass/Vol] 31.0 % Low 32.2 - 35.5 % [facility] MCV (RBC) [Entitic vol] 79.4 fL 79.4 - 94.8 fL [facility] Monocytes (Bld) [#/Vol] 0.7 10*3/uL 0.2 - 0.9 K/uL [facility] Monocytes/100 WBC (Bld) 6.4 % 4.7 - 12.5 % [facility] Neutrophils Absolute 6.9 K/uL High 1.6 - 6 .1 K/uL [facility] Neutrophils/100 WBC (Bld) 64.6 % 34 - 71.1 % [facility] Platelet distribution width (Bld) [Ratio] 14.8 % High 11.7 - 14.4 % [facility] Platelets (Bld) [#/Vol] 371 10*3/uL High 182 - 369 K/uL [facility] RBC (Bld) [#/Vol] 3.74 10*6/uL Low [facility] WBC (Bld) [#/Vol] 10.6 10*3/uL High 4 - 10 K/uL [facility] CT ABDOMEN PELVIS WO CONTRAS Ton 01-14-2022 CT ABDOMEN PELVIS WO CONTRAST CT of the Abdomen and Pelvis w/o intravenous contrast medium History: Menorrhagia with irregular periods Technical Factors: CT imaging of the abdomen and pelvis were obtained and formatted as 5 mm contiguous axial images from the domes of the diaphragm to the symphysis pubis. Sagittal and coronal reconstructions were also obtained. Oral contrast medium: Water as oral contrast medium. Intravenous contrast medium: none. Comparison: none Findings: Lungs: unremarkable Liver: Calcifications posterior right lobe Bile Ducts: Normal in caliber. Gallbladder: No stones or wall thickening. Pancreas: Homogeneous parenchymal enhancement. No necrosis identified. No intrahepatic fluid collections, cystic or solid lesions, pancreatic ductal dilatation, or calcification. Spleen: Normal in size without masses or calcifications. No splenules. Kidneys: Normal in size and enhancement. No hydronephrosis, masses, or stones. Adrenals: Normal. Small bowel: Normal in caliber. Appendix: Normal. Colon: Normal in caliber. Peritoneum: No ascites, free air, or fluid collections. Vessels: Aorta normal in course and caliber. Portal vein, splenic vein, superior mesenteric vein are patent. Lymph nodes: No retroperitoneal lymph node enlargement. Bladder: decompressed Abdominal Wall: Small fat containing umbilical hernia Bones: Unremarkable Reproductive system: unremarkable by CT IMPRESSION: No focal cysts in ovaries, uterus unremarkable by CT No bowel obstruction, appendicitis, diverticulitis, or hydronephrosis Calcifications in liver, etiology uncertain All CT scans at this facility use dose modulation, iterative reconstruction, and/or weight based dosing when appropriate to reduce radiation dose to as low as reasonably achievable. Interpreted by: Amairani Carrillo DO Signed by: Amairani Carrillo DO 01/14/22 Final result Normal [facility] Microscopic Urinalysison Bacteria, UA RARE Abnormal Negative /HPF [facility] Epithelial Cells, UA 5-10 /HPF [facility] Interpretation and review of laboratory results Abnormal [facility] RBC (U) [#/Vol] /uL Abnormal [facility] WBC, UA 6-9 [facility] No Panel Informationon 01-14 [facility] , Urineon 2 Beta HCG ( test) Ql (U) Negative Detects HCG level >20 MIU/mL [facility] UR HCG Qualitativeon 022 Beta HCG ( test) Ql (U) Negative Normal Detects [facility] Comment on above: Performed By: #### U HCG #### [facility] [address] [place] [address] Urinalysis with Reflex to Cu ltureon 01-14-2022 Bilirubin Urine Negative Negative [facility] Blood, Urine Large Negative [facility] Clarity, UA SLCLOUDY Clear [facility] Color, UA Yellow Straw/Yellow [facility] Glucose, Ur Negative Negative mg/dL [facility] Ketones Ql (U) Negative Negative mg/dL [facility] Leukocyte esterase Test strip Ql (U) Small Negative [facility] Nitrite, Urine Negative Negative [facility] pH, UA 6.5 5 - 9 [facility] Protein, UA Trace Negative mg/dL [facility] Specific [place], UA 1.020 1.005 - 1.03 GABI N [facility] Urine Reflex to Culture Not Indicated [facility] Urobilinogen, Urine 0.2 NINF [facility] Urinalysis, reflex to cultur kerwin 01-14-2022 Urine Reflexed to Culture Not Indicated Normal [facility] Comment on above: Performed By: #### U AR #### [facility] [address] [place] [address] Bilirubin Ql (U) Negative Normal Negative [facility] Comment on above: Performed By: #### U AR #### [facility] [address] [place] [address] Clarity (U) SLCLOUDY Normal Clear [facility] Comment on above: Performed By: #### U AR #### [facility] [address] [place] [address] Color (U) Yellow Normal Straw/Preble [facility] Comment on above: Performed By: #### U AR #### [facility] [address] [place] [address] Glucose Ql (U) Negative Normal Negative [facility] Comment on above: Performed By: #### U AR #### [facility] [address] [place] [address] Hemoglobin Ql (U) Large Normal Negative [facility] Comment on above: Performed By: #### U AR #### [facility] [address] [place] [address] Ketones Ql (U) Negative Normal Negative [facility] Comment on above: Performed By: #### U AR #### [facility] [address] [place] [address] Leukocyte esterase Test strip Ql (U) Small Normal Negative [facility] Comment on above: Performed By: #### U AR #### [facility] [address] [place] [address] Nitrite Ql (U) Negative Normal Negative [facility] Comment on above: Performed By: #### U AR #### [facility] [address] [place] [address] pH (U) 6.5 [pH] Normal 5.0-9.0 [facility] Comment on above: Performed By: #### U AR #### [facility] [address] [place] [address] Protein Ql (U) Trace Normal Negative [facility] Comment on above: Performed By: #### U AR #### [facility] [address] [place] [address] Specific gravity (U) [Rel density] 1.020 Normal 1.005-1.03 [facility] Comment on above: Performed By: #### U AR #### [facility] [address] [place] [address] Urobilinogen Qn (U) 0.2 {Jessica'U}/dL Normal < 2.0 [facility] Comment on above: Performed By: #### U AR #### [facility] [address] [place] [address] Urine Microscopicon 01-15-20 22 Epithelial cells LM Ql (Urine sed) 5-10 Normal [facility] Comment on above: Performed By: #### U BRIEN #### [facility] [address] [place] [address] RBC (U) [#/Vol] /uL Abnormal 0-2 [facility] Comment on above: Performed By: #### U BRIEN #### [facility] [address] [place] [address] Urine Bacteria RARE Abnormal Negative [facility] Comment on above: Performed By: #### U BRIEN #### [facility] [address] [place] [address] Urine WBC 6-9 Normal 0-5 [facility] Comment on above: Performed By: #### U BRIEN #### [facility] [address] [place] [address] Falls Screening (Age 18+)on 12-08-2021 Fall risk assessment a) No falls within the last year [facility] Work Phone: Tobacco use status [facility] b) No [facility] [address] Work Phone: Tobacco Screening.on 022 Adult depression screening assessment [facility] Work [facility]: Fall risk assessment a) No falls within the last year [facility] Work Phone: Tobacco use status [facility] b) No [facility] DO Work Phone: Radiologyon 11-15-2021 XR Cervical spine 4 Views Please click on the link to view the study images Normal [facility] DO Work Phone: XR Cervical spine 4 Views Normal [facility] Work Phone: SPINE, CERVICAL MIN 4 VIEWSo n 11-15-2021 SPINE, CERVICAL MIN 4 VIEWS Patient Name: SUSSY CRANE STUDY: SPINE, CERVICAL MIN 4 VIEWS; ; 11/15/2021 1:20 pm INDICATION: neck pain 4 days non-traumatic M54.2: Neck pain. COMPARISON: Cervical spine radiographs 10/05/2016 ACCESSION NUMBER(S): [id number] ORDERING CLINICIAN: AHMET MEDINA FINDINGS: No acute fracture or focal malalignment. No lytic or blastic lesion. IMPRESSION: Unremarkable cervical spine radiographs. Electronically signed by: GALEN HERMAN MD Normal [facility] Tobacco Screening.on Adult depression screening assessment No [facility] Work Phone: Fall risk assessment a) No falls within the last year [facility] DO Work Phone: Tobacco use status CP b) No [facility] DO Work Phone: No Panel Informationon 10-28 Normal [facility] Work Phone: Tobacco Screening.on 022 Fall risk assessment a) No falls within the last year -[facility] Work Phone: Tobacco use status [facility] b) No -[facility] Work Phone: Tobacco Screening. Yes -[facility]ro logy- [facility] Work Phone: HIP, UNILATERAL W/PELVIS WHE N PERFORMED 2-3 VIEWSon 09-30-2021 HIP, UNILATERAL W/PELVIS WHEN PERFORMED 2-3 VIEWS Patient Name: SUSSY CRANE STUDY: HIP, UNILATERAL W/PELVIS WHEN PERFORMED 2-3 VIEWS; Left; 09/30/2021 4:06 pm INDICATION: pain M25.559: Joint pain, hip. ACCESSION NUMBER(S): [id number] ORDERING CLINICIAN: RADU FISHER FINDINGS: AP lateral left hip x-ray shows well-aligned well-positioned left femoroacetabular hip joint. The joint space is preserved. On the AP and lateral view there is a lateral pincher type spur formation. Correlate with clinical symptoms of femoroacetabular impingement. No fracture no dislocation or other abnormal calcifications seen Electronically signed by: RADU FISHER MD Normal [facility] HIP, UNILATERAL W/PELVIS WHEN PERFORMED 2-3 VIEWS Patient Name: SUSSY CRANE STUDY: HIP, UNILATERAL W/PELVIS WHEN PERFORMED 2-3 VIEWS; Right; 09/30/2021 3:02 pm INDICATION: pain M25.559: Joint pain, hip. ACCESSION NUMBER(S): [id number] ORDERING CLINICIAN: RADU FISHER FINDINGS: AP lateral right hip x-ray shows well-aligned positioned right femoroacetabular hip joint. No fracture dislocation is noted. Articular surfaces are congruent and articular space is maintained. There is no sign of arthritic change or abnormal calcifications. There is some slight over sizing of the femoral head consistent with possible cam impingement. Correlate with clinical symptoms of impingement in the imaging studies Electronically signed by: RADU FISHER MD Normal [facility] Radiologyon 09-30-2021 XR Pelvis and Hip - left 2 Views Please click on the link to view the study images Normal [facility] Work Phone: XR Pelvis and Hip - left 2 Views Normal [facility] Work Phone: XR Pelvis and Hip - left 2 Views Normal [facility] Work Phone: Tobacco Screening.on 022 Adult depression screening assessment No [facility] Work Phone: Fall risk assessment a) No falls within the last year [facility] Work Phone: Tobacco use status [facility]PH[facility] b) No [facility] Work Phone: [phone] Tobacco Screening. Yes [facility] Work Phone: IO HCG, Urine Test on 09-20-2021 HCG ( test) Ql (U) Negative [facility] Work Phone: No Panel Informationon 09-20 [facility] Work Phone: Tobacco Screening.on 022 Tobacco use status [facility] b) No [facility] Work Phone: MRI L Spine without Contrast on 09-17-2021 MR Lumbar spine WO contrast Normal [facility] DO Work Phone: NR MRI L-SPINE WOon 09-18-19 22 NR MRI L-SPINE WO Patient Name: SUSSY CRANE STUDY: MRI L-SPINE WO; 09/17/2021 9:15 pm INDICATION: pain M25.551: Hip pain, bilateral M25.552:. Bilateral hip pain radiating into groin and across back for 14 months. Pain after childbirth. No previous surgery. COMPARISON: Plain film examination of 06/03/2021 ACCESSION NUMBER(S): [id number] ORDERING CLINICIAN: EZE HERNANDEZ TECHNIQUE: Multiplanar and multisequential MR images of the lumbar spine are performed. FINDINGS: The lumbar vertebral body alignment is within normal limits. The lumbar disc space heights and signal are preserved. The lumbar vertebral body heights are maintained. There is no acute bone marrow edema. The conus medullaris is of normal morphology and signal. The tip of the conus descends to the L1 level. Axial images are performed through the lumbar disc spaces from the inferior endplate of T12 through S1. The T12-L1 disc space level is unremarkable. The L1-2 disc space level is unremarkable. The L2-3 disc space level is unremarkable. The L3-4 disc space level is unremarkable. The L4-5 disc space level is unremarkable. The L5-S1 disc space level is unremarkable. The visualized paraspinal soft tissues are within normal limits. IMPRESSION: Normal lumbar spine MRI Electronically signed by: NANDINI EPPERSON MD Normal [facility] CT ABD PELVIS W IV CONTRASTo n 09-09-2021 CT ABD PELVIS W IV CONTRAST [] 09/08/2021 4:30 PM CDT History: n94.6, n92.6, r10.30, r10.2 Tech notes: WHAT SYMPTOMS ARE YOU EXPERIENCING? - abd and pelvic pain x 1 year hx daniel isovue 300 100 ml Prior Study: [None] Technique: A CT of the abdomen and pelvis was performed with intravenous contrast. This exam was performed according to our departmental dose optimization program, and includes the following measures where applicable: automated exposure control, adjustment of the mAs and/or kVp according to patient size and/or exam, and an iterative reconstruction algorithm. Sagittal and coronal reconstructions were performed. Total DLP: 352.40 mGy Findings: Lower thorax: Significant parenchymal abnormality noted lung bases. There are no signs of pleural pericardial effusion. The heart does not appear enlarged. [Caps abdomen:] Liver: The liver is normal in size and attenuation. No focal hepatic lesion is identified. There is no dilatation of the intrahepatic biliary tree. The gallbladder surgically absent. The region of the pancreas spleen adrenal glands appear within normal range. The kidneys appear normal in size shape and position without signs of stones or hydronephrosis. Stomach/bowel: No acute abnormalities of stomach were observed. There is high density material within the stomach that most likely represents bowel content. Small bowel pattern is nonobstructive. The region of the terminal ileum and cecum appears within normal range. The appendix is not identified and could be surgically absent. There is a moderate volume of retained fecal material within the colon. Scattered sigmoid diverticula noted but there are no signs of diverticulitis. Pelvis: The urinary bladder demonstrates normal rounded contour. No acute abnormalities of the uterus or adnexa visualized. No significant ascites or lymphadenopathy were noted within the pelvis. Retroperitoneum/peritoneum: There are no signs of aneurysm, lymphadenopathy or ascites. No free air was observed. Peritoneum/retroperitoneum: There is no generalized ascites or free intraperitoneal air. The abdominal aorta is not aneurysmal. There are no enlarged retroperitoneal lymph nodes. Bones: No acute osseous sclerotic or lytic lesions are identified [] Impression: [] 1. No acute radiographic abnormalities of the abdomen or pelvis 2. Mild sigmoid diverticulosis without signs diverticulitis 3. No signs of urolithiasis or obstructive uropathy. 4. Moderate volume of retained fecal material within the colon could represent signs of constipation. [] Electronically signed by: Eli Juan MD 09/08/2021 11:40 PM CDT Technologist: MACIEL RHODES Dictated By: Brennon JUAN MD Signed By: Brennon JUAN MD Signed Out: 09/09/21 00:40:09 Normal [facility] Radiologyon 09-09-2021 CT Abdomen and Pelvis W contrast IV Normal [facility] [place] DO Work Phone: [phone] Jillian HEBERTMETAon 09-08-2021 Albumin [Mass/Vol] 4.4 g/dL Normal 3.4-5.0 [facility] Comment on above: Performed By: #### 1 [id number] #### [facility] [address] [place] [address] Direct Support Professional Home Health: Landon Diggs MD Albumin/Globulin [Mass ratio] 1.3 {ratio} Normal [facility] Comment on above: Performed By: #### 1 [id number] #### [facility] [address] [place] [address] Direct Support Professional Home Health: Landon Diggs MD Alk Phos 85 unit/L Normal 45-117 [facility] Comment on above: Performed By: #### 1 [id number] #### [facility] [address] [place] [address] Direct Support Professional Home Health: Landon Diggs MD Bilirubin [Mass/Vol] 0.32 mg/dL Normal 0.20-1.00 [facility] Comment on above: Result Comment: Use of this assay is not recommended for patients undergoing treatment with eltrombopag due to the potential for falsely elevated results. Performed By: #### 1 [id number] #### [facility] [address] [place] [address] Direct Support Professional Home Health: Landon Diggs MD Calcium [Mass/Vol] 9.6 mg/dL Normal 8.5-10.5 [facility] Comment on above: Performed By: #### 1 [id number] #### [facility] [address] [place] [address] Direct Support Professional Home Health: Landon Diggs MD Chloride [Moles/Vol] 106 mmol/L Normal 100-109 [facility] Comment on above: Performed By: #### 1 [id number] #### [facility] [address] [place] [address] Direct Support Professional Home Health: Landon Diggs MD CO2 [Moles/Vol] 28.6 mmol/L Normal 21.0-32.0 [facility] Comment on above: Performed By: #### 1 [id number] #### [facility] [address] [place] [address] Direct Support Professional Home Health: Landon Diggs MD Creatinine [Mass/Vol] 0.9 mg/dL Normal 0.6-1.0 [facility] Comment on above: Performed By: #### 1 [id number] #### [facility] [address] [place] [address] Direct Support Professional Home Health: Landon Diggs MD GFR AA >60 Normal [facility] Comment on above: Result Comment: Afri can Palauan GFR Calc Medical judgement is necessary to interpret GFR. The calculated GFR may not accurately reflect renal status in patients >70 years, women, acutely ill hospitalized patients and patients with acute renal failure or known renal disease. The MDRD GFR formula is valid only for adults greater than 18 years of age. Note: Creatinine clearance (not GFR) should be used for drug dosing. Performed By: #### 1 [id number] #### [facility] [address] [place] [address] Direct Support Professional Home Health: Landon Diggs MD Globulin (S) [Mass/Vol] 3.3 g/dL Normal [facility] Comment on above: Performed By: #### 1 [id number] #### [facility] [address] [place] [address] Direct [facility]: Landon Diggs MD Glomerular Filtration Rate >60 Normal [facility] Comment on above: Result Comment: Non GFR Calc Medical judgement is necessary to interpret GFR. The calculated GFR may not accurately reflect renal status in patients >70 years, women, acutely ill hospitalized patients and patients with acute renal failure or known renal disease. The MDRD GFR formula is valid only for adults greater than 18 years of age. Note: Creatinine clearance (not GFR) should be used for drug dosing. Performed By: #### 1 [id number] #### [facility] [address] [place] [id number] Direct [facility]: Landon Diggs MD Glucose [Mass/Vol] 68 mg/dL Low 72-100 [facility] Comment on above: Result Comment: Eva puncture should occur prior to sulfasalazine administration due to the potential for falsely depressed results. Venipuncture should occur prior to sulfapyridine administration due to the potential falsely elevated results. Baseline assay values before administration of sulfasalazine and sulfapyridine therapy would not be affected. Performed By: #### 1 [id number] #### [facility] [address] [place] [address] Direct [facility]: Landon Diggs MD GOT 13 unit/L Low 15-37 [facility] Comment on above: Result Comment: Eva puncture should occur prior to sulfasalazine and/or sulfapyridine administration due to the potential for falsely depressed results. Baseline assay values before administration of sulfasalazine and sulfapyridine therapy would not be affected. Performed By: #### 1 [id number] #### [facility] [address] [place] [address] Direct [facility]: Landon Diggs MD GPT 21 unit/L Normal 13-56 [facility] Comment on above: Result Comment: Eva puncture should occur prior to sulfasalazine and/or sulfapyridine administration due to the potential for falsely depressed results. Baseline assay values before administration of sulfasalazine and sulfapyridine therapy would not be affected. Performed By: #### 1 [id number] #### [facility] [address] [place] [address] Direct [facility]: Landon Diggs MD Osmolality [Osmolality] 279 mosm/kg Normal 275-295 [facility] Comment on above: Performed By: #### 1 [id number] #### [facility] [address] [place] [address] Direct [facility]: Landon Diggs MD Potassium [Moles/Vol] 4.1 mmol/L Normal 3.5-5.1 [facility] Comment on above: Performed By: #### 1 [id number] #### [facility] [address] [place] [address] Direct [facility]: Landon Diggs MD Protein [Mass/Vol] 7.7 g/dL Normal 6.0-8.5 [facility] Comment on above: Performed By: #### 1 [id number] #### [facility] [address] [place] [address] Direct [facility]: Landon Diggs MD Sodium [Moles/Vol] 141 mmol/L Normal 135-145 [facility] Comment on above: Performed By: #### 1 [id number] #### [facility] [address] [place] [address] Direct [facility]: Landon Diggs MD Urea nitrogen [Mass/Vol] 12 mg/dL Normal 10-20 [facility] Comment on above: Performed By: #### 1 [id number] #### [facility] [address] [place] [address] Direct [facility]: Landon Diggs MD Urea nitrogen/Creatinine [Mass ratio] 13.5 mg/mg Normal [facility] Comment on above: Performed By: #### 1 [id number] #### [facility] [address] [place] [address] Direct [facility]: Landon Diggs MD Laboratory - Chemistry and C hemistry - challengeon 09-08-2021 Globulin (S) [Mass/Vol] 3.3 g/dL Normal [facility] DO Work Phone: Urea nitrogen/Creatinine [Mass ratio] 13.5 mg/mg Normal [facility] DO Work Phone: No Panel Informationon 09-08 >60 Normal [facility] DO Work Phone: Comment on above: GFR CalcMedical judgement is necessary to interpret GFR. The calculated GFR may not accurately reflect renal status in patients >70 years, women, acutely ill hospitalized patients and patients with acute renal failure or known renal disease. The MDRD GFR formula is valid only for adults greater than 18 years of age.Note:Creatinine clearance (not GFR) should be used for drug dosing. Non GFR CalcMedical judgement is necessary to interpret GFR. The calculated GFR may not accurately reflect renal status in patients >70 years, women, acutely ill hospitalized patients and patients with acute renal failure or known renal disease. The MDRD GFR formula is valid only for adults greater than 18 years of age.Note:Creatinine clearance (not GFR) should be used for drug dosing. 13 {unit/L} below low threshold 15-37 [facility] DO Work Phone: Comment on above: Venipuncture should occur prior to sulfasalazine and/or sulfapyridine administration due to the potential for falsely depressed results.Baseline assay values before administration of sulfasalazine and sulfapyridine therapy would not be affected. 68 mg/dL below low threshold 72-100 [facility] DO Work Phone: Comment on above: Venipuncture should occur prior to sulfasalazine administration due to the potential for falsely depressed results. Venipuncture should occur prior to sulfapyridine administration due to the potential falsely elevated results.Baseline assay values before administration of sulfasalazine and sulfapyridine therapy would not be affected. 4.4 g/dL Normal 3.4-5.0 [facility] DO Work Phone: 9.6 mg/dL Normal 8.5-10.5 [facility] DO Work Phone: 12 mg/dL Normal 10-20 [facility] DO Work Phone: 279 {mOsm/kg} Normal 275-295 [facility] DO Work Phone: 0.32 mg/dL Normal 0.20-1.00 [facility] DO Work Phone: Comment on above: Use of this assay is not recommended for patients undergoing treatment with eltrombopag due to the potential for falsely elevated results. 141 mmol/L Normal 135-145 [facility] DO Work Phone: 106 mmol/L Normal 100-109 [facility] DO Work Phone: 1.3 1 Normal [facility] DO Work Phone: 4.1 mmol/L Normal 3.5-5.1 [facility] DO Work Phone: 7.7 g/dL Normal 6.0-8.5 [facility] DO Work Phone: 28.6 mmol/L Normal 21.0-32.0 [facility] DO Work Phone: 21 {unit/L} Normal 13-56 [facility] DO Work Phone: Comment on above: Venipuncture should occur prior to sulfasalazine and/or sulfapyridine administration due to the potential for falsely depressed results.Baseline assay values before administration of sulfasalazine and sulfapyridine therapy would not be affected. 85 {unit/L} Normal 45-117 [facility] DO Work Phone: 0.9 mg/dL Normal 0.6-1.0 [facility] DO Work Phone: No Panel Informationon 09-01 Normal [facility] Work Phone: GC + Chlamydia By Amplified Detectionon 08-31-2021 C. trachomatis rRNA RADHA+probe Ql (Unsp spec) Negative Negative [facility] Work Phone: Comment on above: The APTIMA Combo 2 a ssay is FDA-approved for Chlamydia trachomatis and Neisseria gonorrhoeae testing on female endocervical and vaginal swabs, ThinPrep liquid pap samples, male urine samples and urethral swabs. Performance characteristics for Chlamydia trachomatis and Neisseria gonorrhoeae testing on specific jvs-WCY-nobrtcdn sample types (female urine samples) have been validated by [facility]. This laboratory is certified by CLIA to perform high complexity testing. Samples from all other sites are not validated for this method. N. gonorrhoeae rRNA RADHA+probe Ql (Unsp spec) Negative Negative [facility] Work Phone: Comment on above: SOURCE: Urine The AP MOISÉS Combo 2 assay is FDA-approved for Chlamydia trachomatis and Neisseria gonorrhoeae testing on female endocervical and vaginal swabs, ThinPrep liquid pap samples, male urine samples and urethral swabs. Performance characteristics for Chlamydia trachomatis and Neisseria gonorrhoeae testing on specific tzk-CSE-znbzlpxu sample types (female urine samples) have been validated by [facility]. This laboratory is certified by CLIA to perform high complexity testing. Samples from all other sites are not validated for this method. IO HCG, Urine Test on 08-31-2021 HCG ( test) Ql (U) Negative [facility] Work Phone: No Panel Informationon 08-31 Negative Negative [facility] Work Phone: Comment on above: SOURCE: Urine The AP MOISÉS Trichomonas vaginalis assay is FDA-approved for testing on female endocervical swabs, vaginal swabs, and ThinPrep liquid pap samples. Performance characteristics for Trichomonas vaginalis on specific psp-JUP-lrcfiiiz sample types (female and male urine and male urethral swabs) have been validated by [facility]. This laboratory is certified by CLIA to perform high complexity testing. Samples from all other sites are not validated for this method.Performance characteristics for Trichomonas Vaginalis testing on urine samples has been validated by [facility]. Testing on this sample type is not FDA-approved, but such approval is not necessary. This laboratory is certified by CLIA to perform high complexity testing. Tobacco Screening.on 04-05-2 022 Last menstrual period start date constant bleeding for a month [facility] Work Phone: Tobacco use status CPHS b) No [facility] Work Phone: Cult, Urineon 08-25-2021 Bacteria identified Cx Nom (U) [facility] DO Work Phone: IO UA (nonautomated w/o micr oscopy)on 08-25-2021 Protein (U) [Mass/Vol] Trace [facility] [facility] DO Work Phone: IO UA (nonautomated w/o microscopy) Normal (0.2-1.0 mg/dl) [facility] DO Work Phone: IO UA (nonautomated w/o microscopy) (++) [facility] [facility] DO Work Phone: IO UA (nonautomated w/o microscopy) Negative [facility] DO Work Phone: IO UA (nonautomated w/o microscopy) 5.0 1 [facility] DO Work Phone: IO UA (nonautomated w/o microscopy) (+++)large - 80 [facility] DO Work Phone: [phone] IO UA (nonautomated w/o microscopy) 1.030 1 [facility] DO Work Phone: [phone] IO UA (nonautomated w/o microscopy) Hazy [facility] DO Work Phone: [phone] IO UA (nonautomated w/o microscopy) Red [facility] DO Work Phone: Tobacco Screening.on 022 Adult depression screening assessment Yes [facility] DO Work Phone: Fall risk assessment a) No falls within the last year [facility] DO Work Phone: Tobacco use status CPHS b) No [facility] DO Work Phone: Tobacco Screening. Yes [facility] DO Work Phone: CBC AND DIFFERENTIALon 08-14 Basophils (Bld) [#/Vol] 0.00 10*3/uL Normal 0.00 - 0.10 [facility] Comment on above: Performed By: #### C BCDF #### [address] [address] Eosinophils (Bld) [#/Vol] 0.10 10*3/uL Normal 0.00 - 0.70 [facility] Comment on above: Performed By: #### C BCDF #### [address] [address] Eosinophils/100 WBC (Bld) 1.5 % Normal 0.0 - 6.0 [facility] Comment on above: Performed By: #### C BCDF #### [address] [address] Lymphocytes (Bld) [#/Vol] 3.20 10*3/uL Normal 1.20 - 4.80 [facility] Comment on above: Performed By: #### C BCDF #### [address] [address] Monocytes (Bld) [#/Vol] 0.50 10*3/uL Normal 0.10 - 1.00 [facility] Comment on above: Performed By: #### C BCDF #### [address] [address] Neutrophils (Bld) [#/Vol] 4.20 10*3/uL Normal 1.20 - 7.70 [facility] Comment on above: Result Comment: Perc ent differential counts (%) should be interpreted in the context of the absolute cell counts (cells/L). Performed By: #### C BCDF #### [place] [address] NUCLEATED RBC 0.1 /100 WBC Normal [facility] Comment on above: Performed By: #### C BCDF #### [place] [address] RBC 4.44 x10E12/L Normal 4.00 - 5.20 [facility] Comment on above: Performed By: #### C BCDF #### [place] [address] Basophils/100 WBC (Bld) 0.5 % 0.0 - 2.0 [facility] Comment on above: Performed By: #### C BCDF #### [place] [address] Erythrocyte distribution width (RBC) [Ratio] 15.1 % above high threshold See Below [facility] Comment on above: Performed By: #### C BCDF #### [place] [address] Reference Range: 11. 5 - 14.5 Hematocrit (Bld) [Volume fraction] 36.1 % See Below [facility] Comment on above: Performed By: #### C BCDF #### [place] [address] Reference Range: 36. 0 - 46.0 Hemoglobin (Bld) [Mass/Vol] 11.7 g/dL below low threshold See Below [facility] Comment on above: Performed By: #### C BCDF #### [place] [address] Reference Range: 12. 0 - 16.0 Lymphocytes/100 WBC (Bld) 40.1 % See Below [facility] Comment on above: Performed By: #### C BCDF #### [place] [address] Reference Range: 13. 0 - 44.0 MCHC (RBC) [Mass/Vol] 32.5 g/dL See Below [facility] Comment on above: Performed By: #### C BCDF #### [address] [address] Reference Range: 32. 0 - 36.0 MCV (RBC) [Entitic vol] 81 fL 80 - 100 [facility] Comment on above: Performed By: #### C BCDF #### [address] [address] Monocytes/100 WBC (Bld) 5.8 % 2.0 - 10.0 [facility] Comment on above: Performed By: #### C BCDF #### [address] [address] Neutrophils/100 WBC (Bld) 52.1 % See Below [facility] Comment on above: Performed By: #### C BCDF #### [address] [address] Reference Range: 40. 0 - 80.0 Platelets (Bld) [#/Vol] 423 10*3/uL 150 - 450 [facility] Comment on above: Performed By: #### C BCDF #### [address] [address] WBC (Bld) [#/Vol] 8.0 10*3/uL 4.4 - 11.3 [facility] Comment on above: Performed By: #### C BCDF #### [address] [address] COMPREHENSIVE PANELon 2021 Albumin [Mass/Vol] 4.8 g/dL Normal 3.4 - 5.0 [facility] Comment on above: Performed By: #### C MP ####[address] [address] ALP [Catalytic activity/Vol] 83 U/L Normal 33 - 110 [facility] Comment on above: Performed By: #### C MP ####[address] [address] ALT [Catalytic activity/Vol] 12 U/L Normal 7 - 45 [facility] Comment on above: Result Comment: Lyndsey ents treated with Sulfasalazine may generate falsely decreased results for ALT. Performed By: #### C MP ####[address] [address] Anion gap [Moles/Vol] 11 mmol/L Normal 10 - 20 [facility] Comment on above: Performed By: #### C MP ####[address] [address] AST [Catalytic activity/Vol] 14 U/L Normal 9 - 39 [facility] Comment on above: Performed By: #### C MP ####[address] [address] Bilirubin [Mass/Vol] 0.3 mg/dL Normal 0.0 - 1.2 [facility] Comment on above: Performed By: #### C MP ####[address] [address] Calcium [Mass/Vol] 9.9 mg/dL Normal 8.6 - 10.3 [facility] Comment on above: Performed By: #### C MP ####[address] [address] Chloride [Moles/Vol] 104 mmol/L Normal 98 - 107 [facility] Comment on above: Performed By: #### C MP ####[address] [address] Creatinine [Mass/Vol] 0.74 mg/dL Normal 0.50 - 1.05 [facility] Comment on above: Performed By: #### C MP ####[address] [address] eGFR FEMALE >90 Normal >90 [facility] Comment on above: Result Comment: CALC ULATIONS OF ESTIMATED GFR ARE PERFORMED USING THE 2020 CKD-EPI STUDY REFIT EQUATION WITHOUT THE RACE VARIABLE FOR THE IDMS-TRACEABLE CREATININE METHODS. https://jasn.asnjournals.org/content/early//ASN.5484167 988 Performed By: #### C MP ####[address] [address] Glucose [Mass/Vol] 87 mg/dL Normal 74 - 99 [facility] Comment on above: Performed By: #### C MP ####[address] [address] HCO3 (Bld) [Moles/Vol] 28 mmol/L Normal 21 - 32 [facility] Comment on above: Performed By: #### C MP ####[address] [address] Potassium [Moles/Vol] 4.0 mmol/L Normal 3.5 - 5.3 [facility] Comment on above: Performed By: #### C MP ####[address] [address] Protein [Mass/Vol] 7.8 g/dL Normal 6.4 - 8.2 [facility] Comment on above: Performed By: #### C MP ####[address] [address] Sodium [Moles/Vol] 139 mmol/L Normal 136 - 145 [facility] Comment on above: Performed By: #### C MP ####[address] [address] Urea nitrogen [Mass/Vol] 12 mg/dL Normal 6 - 23 [facility] Comment on above: Performed By: #### C MP ####[address] [address] Complete Blood Count + Diffe rentialon 08-14-2021 RBC (Bld) [#/Vol] 4.44 {x10E12/L} See Below [facility] DO Work Phone: Comment on above: Reference Range: 4.0 0 - 5.20 Complete Blood Count + Differential 0.00 {x10E9/L} See Below [facility] [facility] Work Phone: Comment on above: Reference Range: 0.0 0 - 0.10 Complete Blood Count + Differential 0.10 {x10E9/L} See Below [facility] [facility] Work Phone: Comment on above: Reference Range: 0.0 0 - 0.70 Complete Blood Count + Differential 0.50 {x10E9/L} See Below [facility] Work Phone: Comment on above: Reference Range: 0.1 0 - 1.00 Complete Blood Count + Differential 3.20 {x10E9/L} See Below [facility] Work Phone: Comment on above: Reference Range: 1.2 0 - 4.80 Complete Blood Count + Differential 4.20 {x10E9/L} See Below [facility] [facility] Work Phone: Comment on above: Reference Range: 1.2 0 - 7.70 Percent differential counts (%) should be interpreted in the context of the absolute cell counts (cells/L). Complete Blood Count + Differential 1.5 % 0.0 - 6.0 [facility] Work Phone: Complete Blood Count + Differential 0.1 {/100_WBC} [facility] Work Phone: HCG, Serum - Qualitativeon 0 08-14-2021 HCG ( test) Ql Negative Negative [facility] Work Phone: HCG,SERUM QUALITATIVEon 07-27 HCG,SERUM QUALITATIVE Negative Normal Negative [facility] Comment on above: Performed By: #### H CGS ####[place] [address] LIPASEon 08-14-2021 Lipase [Catalytic activity/Vol] 28 U/L Normal 9 - 82 [facility] Comment on above: Result Comment: Eva puncture immediately after or during the administration of Metamizole may lead to falsely low results. Testing should be performed immediately prior to Metamizole dosing. B-ggkupt-v-benzoquinone imine (metabolite of Acetaminophen) will generate erroneously low results in samples for patients that have taken toxic doses of acetaminophen. Performed By: #### L IPAS ####[place] [address] Laboratory - Chemistry and C hemistry - challengeon 08-14-2021 Albumin BCP dye [Mass/Vol] 4.8 g/dL 3.4 - 5.0 -[facility] DO Work Phone: ALP [Catalytic activity/Vol] 83 U/L 33 - 110 -[facility] Work Phone: ALT With P-5'-P [Catalytic activity/Vol] 12 U/L 7 - 45 -[facility] Work Phone: Comment on above: Patients treated wit h Sulfasalazine may generate falsely decreased results for ALT. Anion gap [Moles/Vol] 11 mmol/L 10 - 20 -[facility] Work Phone: AST With P-5'-P [Catalytic activity/Vol] 14 U/L 9 - 39 -[facility] Work Phone: Bilirubin [Mass/Vol] 0.3 mg/dL 0.0 - 1.2 [facility] [facility] Work Phone: [phone] Calcium [Mass/Vol] 9.9 mg/dL 8.6 - 10.[address] [facility] [facility] Work Phone: Chloride [Moles/Vol] 104 mmol/L 98 - 107 [facility] [facility] Work Phone: [phone] CO2 [Moles/Vol] 28 mmol/L 21 - 32 -[facility] Work Phone: Creatinine [Mass/Vol] 0.74 mg/dL See Below -[facility] Work Phone: Comment on above: Reference Range: 0.5 0 - 1.05 Glucose [Mass/Vol] 87 mg/dL 74 - [address] [facility] [facility] Work Phone: Potassium [Moles/Vol] 4.0 mmol/L 3.5 - 5.3 -[facility] Work Phone: Protein [Mass/Vol] 7.8 g/dL 6.4 - 8.2 -[facility] [facility] Work Phone: Sodium [Moles/Vol] 139 mmol/L 136 - [address] [facility] [facility] Work Phone: Urea nitrogen [Mass/Vol] 12 mg/dL 6 - 23 -[place] [facility] [facility] Work Phone: Lipase, Serumon 08-14-2021 Lipase [Catalytic activity/Vol] 28 U/L 9 - 82 -[facility] [facility] Work Phone: Comment on above: Venipuncture immedia tely after or during the administration of Metamizole may lead to falsely low results. Testing should be performed immediately prior to Metamizole dosing. Q-drtipk-j-benzoquinone imine (metabolite of Acetaminophen) will generate erroneously low results in samples for patients that have taken toxic doses of acetaminophen. No Panel Informationon 08-14 >90 >90 [facility] [facility] Work Phone: Comment on above: CALCULATIONS OF FLO MATED GFR ARE PERFORMED USING THE 2020 CKD-EPI STUDY REFIT EQUATION WITHOUT THE RACE VARIABLE FOR THE IDMS-TRACEABLE CREATININE METHODS.https://jasn.asnjournals.org/content//ASN .0893523697 Provider Note - ED v3on 07-27 Provider Note - ED v3 Provider Note: Chart Review: ED NOTES ED NOTES: Source of Information: Patient. EMR was reviewed for previous records. ------- HPI: Vaginal bleeding. This 26-year-old white female presents to the ED with complaint of vaginal bleeding she states that she has had her current menstrual cycle for approximately 10 days. Also concerned about the possibility of having a UTI which she had earlier in the month on 08/03/2021. She states that she was treated with Keflex. She denies any urinary symptoms. She states that she is using 5-6 pads a day of her menstrual cycle. She does admit to a long history of irregular menses though has never had bleeding for quite this long. She states that she has taken multiple tests at home and at [facility] without any positive test. She denies any breast tenderness or swelling. States nothing makes her symptoms better or worse. ------- PMH: Irregular menses PSH: Cholecystectomy, right shoulder surgery Social Hx: The patient denies any use of tobacco or illegal drugs. Patient does admit to occasional use of alcohol. MEDS: Denies ALLERGIES: NKDA ------- PHYSICAL EXAM: General: Patient alert, awake, oriented X3, appears be no obvious distress, nontoxic, cooperative Skin: Warm. Dry. Intact. No rash. Eyes: PEARTLA, EOMIs intact, sclera white, conjunctiva clear HEENT: Atraumatic. Normo-cephalic. Oral nasal mucosa pink and moist. Neck: Supple without meningismus, no lymphadenopathy. CV: Regular rate and rhythm without murmurs, heaves, lifts or thrills. Respiratory: Nonlabored breathing. There are no retractions or tachypnea. Lungs are clear to auscultation bilaterally. GI: Soft, nontender, without gross distention, bowel sounds present in all 4 quadrants. There is no pulsatile masses. There is no CVA tenderness. No rebound, rigidity or guarding. MUSC: There is no joint swelling or bony tenderness on exam. Neuro: Cranial nerves II - XII grossly intact. Speech is fluent. No focal neurologic deficits are noted on exam. Lower extremities: There is no peripheral edema bilaterally, negative Homans sign. No palpable cords. Distal pulses are present in both lower extremities. Psych: Maintains eye contact. Cooperative. ------- ED course: Patient was seen and evaluated due to complaints of abnormal vaginal bleeding for the past 10 days. Patient with a Stuyvesant today. Blood work was unremarkable mild anemia. Patient's test was negative. The patient was discharged home with plan follow-up with an [employer] concerning her bleeding. This chart was dictated with the use of [employer] software within the framework of the current electronic medical records software. Attempts were made to edit in real time, given time constraints there is the potential for inaccuracies in my dictation. Rahul Hirsch, DO HISTORY OF PRESENTING ILLNESS SUSSY is a 26 year old Female and was seen by me at 14-Aug-2021 17:26 for a chief complaint of vaginal bleeding (started 10 days ago, using 5 pads a day. last period was in Jun. took test 2-3 wks ago and was negative. gen abd pain feels like a bruise')(1). Triage Information: Most recent Vital Sign Value Date Temp (F): 98.3 08-14-2021 17:22 Temp (C): 36.8 08-14-2021 17:22 Heart Rate (beats/min): 74 08-14-2021 17:22 Respirations (breaths/min): 18 08-14-2021 17:22 SpO2 (%): 98 08-14-2021 17:22 BP Systolic (mm Hg): 126 08-14-2021 17:22 BP Diastolic (mm Hg): 73 08-14-2021 17:22 PAST MEDICAL HISTORY CURRENT OR FORMER SUBSTANCE USE: Tobacco/Nicotine Use: never smoker Alcohol Use: occasionally Drug Use: denies,ALLERGIES/INTOLERANC ES: No Known Allergies HEALTH HISTORY: Medical History Name:GERD (gastroesophageal reflux disease) Code:K21.9 Name:Anxiety and depression Code:F41.9 Name:Bipolar 1 disorder Code:F31.9 Name:Eczema Code:L30.9 Name:Labral tear of shoulder, right, initial encounter Code:S43.431A Name:Rupture long head biceps tendon, right, initial encounter Code:S46.111A OUTPATIENT MEDICATIONS: Home Medications Review Status for Reconciliation: N/A Med Status: Patient Currently Takes Medications Drug Name: valACYclovir 1 g oral tablet Instructions: 1 tab(s) orally 2 times a day, As Needed Drug Name: doxycycline monohydrate 100 mg oral tablet Instructions: 1 tab(s) orally once a day SIGNIFICANT EVENTS: C (more content not included)... Normal [facility] Risk Screen - Adult Emergenc yon 08-14-2021 Risk Screen - Adult Emergency Preferred Language: Preferred Language: Preferred Language for Discussing Health Care (patient/designee)Singaporean Advanced Directives: Advance Directive/DNRno Family Violence Adult: Abuse Screen: Are you or have you been threatened or abused physically, emotionally, or sexually by anyoneno Learning Assessment (Patient): Learning Assessment (Patient): Patient is Able to be Assessed for Learningyes Factors Influencing Readiness to Learnacuteness of illness Factors that Impact Ability to Learnnone Devices/Methods Used to Communicatenone Learning Preferencesaudio Cultural Considerationsnone Developmental Considerationsnone Amish Considerationsnone Learning Assessment (Other Learner): Learning Assessment (Other Learner): Other learner availableno Pressure Injury/TB/Substance: Pressure Injury: Do you have a coughno Smoking Statusnever smoker Alcohol Useoccasionally Drug Usedenies Admission Risk Screen: Significant IndicatorsComplete CAGE: CAGE: Is this an injured patient at a Trauma Center ([facility] [place]): no Electronic Signatures: Marty Carrillo (RN) (Signed 14-Aug-2021 17:26) Authored: Preferred Language, Advanced Directives, Family Violence Adult, Learning Assessment (Patient), Learning Assessment (Other Learner), Pressure Injury/TB/Substance, Pressure Injury, CAGE Last Updated: 14-Aug-2021 17:26 by Marty Carrillo (EMELIA) [facility] Triage - EDon 08-14-2021 Triage - ED Quick Triage: Are You maybe Are You Currently Breastfeedingno Chart Review: ARRIVAL INFORMATION Mode of Arrival: private vehicle CHIEF COMPLAINT SUSSY CRANE is a Female patient with a chief complaint of vaginal bleeding (started 10 days ago, using 5 pads a day. last period was in Jun. took test 2-3 wks ago and was negative. gen abd pain feels like a bruise'). Triage Date/Time: 14-Aug-2021 17:22 MELO: 3 Pain Rating (0-10): 4 = Moderate Pain location: abd Vital Signs: Temperature: 98.3F ( 36.8C) Blood Pressure: 126/73 Mean: Heart Rate: 74 Respiratory Rate: 18 Pulse Oximetry: 98% on room air, no respiratory support. Height: 5 feet 4.00 inches. 162.5 CM Weight: 150.3 pounds. Calculated 68.2 kg. (stated) Calculated BMI (kg/m2): 25.827 Calculated BSA (m2) 1.75 Kelby Coma Scale: Best Eye Response: (E4) spontaneous Best Motor Response: (M6) obeys commands Best Verbal Response: (V5) oriented [place] Score: 15 Allergies: no Last menstrual period: unknown (Jun) Patient has homicidal thoughts: no Risk Screens Suicide Risk Screen In the Past Month: Have you wished you were or wished you could go to sleep and not wake up no In the Past Month: Have you had any actual thoughts of killing yourself no In Your Lifetime: Have you ever done anything, started to do anything, or prepared to do anything to end your life no Sanford Fall Scale Screening Has the patient fallen before (or is the patient in the ED as a result of a fall) has not had a fall Does the patient have an impaired gait does not have impaired gait Is the patient cognitively impaired not cognitively impaired Interventions: Sanford Fall Interventions: LOW INTERVENTIONS: *patient oriented to surroundings and call system, * patient/family falls education completed and documented, *patients fall status communicated during bedside handoff, *whiteboard updated, *mode of toileting discussed with patient, *bed in low position with brakes locked, *call light in reach, * non-skid footwear TRAVEL HISTORY Travel History Coronavirus Screening: no exposure or symptoms Travel Exposure History: NO travel to International locations in the past 30 days PAIN Pain Scale Used: CARMENCITA Pain Rating (0-10): 4 = Moderate Past Medical History: Past Medical History Reviewedyes Electronic Signatures: Marty Carrillo (EMELIA) (Signed 14-Aug-2021 17:26) Entered: Risk Screens, Pain, Travel History, Chart Review, Scores, Past Medical History Authored: Quick Triage, Risk Screens, Pain, Travel History, Chart Review, Scores, Past Medical History Last Updated: 14-Aug-2021 17:26 by Marty Carrillo (EMELIA) Normal [facility] UA MICROSCOPICon 08-14-2021 BACTERIA 1+ /HPF Abnormal [facility] Comment on above: Performed By: #### U AMIC #### [address] [address] Mucus Ql (Urine sed) 1+ /LPF Normal [facility] Comment on above: Performed By: #### U AMIC #### [address] [place] [address] RBC 5 /HPF Normal 0-5 [facility] Comment on above: Performed By: #### U AMIC #### [address] [address] SQUAMOUS EPITH. CELLS 1 /HPF Normal [facility] Comment on above: Performed By: #### U AMIC #### [address] [address] WBC (U) [#/Vol] /uL Normal 0-5 [facility] Comment on above: Performed By: #### U AMIC #### [address] [address] URINALYSIS WITH CULTURE IF I NDICATEDon 08-14-2021 Appearance (U) CLEAR Normal CLEAR [facility] Comment on above: Performed By: #### U ARFX #### [address] [address] Bilirubin Ql (U) Negative Normal NEGATIVE [facility] Comment on above: Performed By: #### U ARFX #### [address] [address] Color (U) Colorless Normal STRAW,YELLOW [facility] Comment on above: Performed By: #### U ARFX #### [address] [address] Glucose Ql (U) Negative Normal NEGATIVE [facility] Comment on above: Performed By: #### U ARFX #### [address] [address] Hemoglobin Ql (U) LARGE(3+) Abnormal NEGATIVE [facility] Comment on above: Performed By: #### U ARFX #### [address] [address] Ketones Ql (U) Negative Normal NEGATIVE [facility] Comment on above: Performed By: #### U ARFX #### [address] [address] Leukocyte esterase Test strip Ql (U) Negative Normal NEGATIVE [facility] Comment on above: Performed By: #### U ARFX #### [address] [address] Nitrite Ql (U) Negative Normal NEGATIVE [facility] Comment on above: Performed By: #### U ARFX #### [address] [address] pH (U) 7.0 [pH] Normal 5.0 - 8.0 [facility] Comment on above: Performed By: #### U ARFX #### [address] [address] Protein Ql (U) Negative Normal NEGATIVE [facility] Comment on above: Performed By: #### U ARFX #### [address] [address] Specific gravity (U) [Rel density] 1.002 Low 1.005 - 1.035 [facility] Comment on above: Performed By: #### U ARFX #### [address] [address] Urobilinogen (U) [Mass/Vol] mg/dL Normal 0.0 - 1.9 [facility] Comment on above: Performed By: #### U ARFX #### [address] [address] Color (U) Colorless See Below -[facility] DO Work Phone: Comment on above: Reference Range: STR AW,YELLOW Glucose Ql (U) Negative NEGATIVE -[place] [facility] [facility] Work Phone: Ketones Ql (U) Negative NEGATIVE -[place] [facility] [facility] Work Phone: Leukocyte esterase Test strip Ql (U) Negative NEGATIVE -[place] [facility] [facility] Work Phone: pH (U) 7.0 [pH] 5.0 - 8.0 -[place] [facility] [facility] Work Phone: Protein (U) [Mass/Vol] Negative NEGATIVE -[place] [facility] [facility] Work Phone: RBC (U) [#/Vol] LARGE(3+) Abnormal NEGATIVE -[facility] DO Work Phone: Specific gravity (U) [Rel density] 1.002 1 below low threshold See Below [facility] Work Phone: Comment on above: Reference Range: 1.0 05 - 1.035 URINALYSIS WITH CULTURE IF INDICATED Negative NEGATIVE -[place] [facility] DO Work Phone: [phone] URINALYSIS WITH CULTURE IF INDICATED <2.0 0.0 - 1.9 -[place] [facility] DO Work Phone: [phone] URINALYSIS WITH CULTURE IF INDICATED CLEAR CLEAR -[place] [facility] DO Work Phone: [phone] Urinalysis, Microscopicon Urinalysis, Microscopic 1+ Abnormal [facility] Work Phone: [phone] Urinalysis, Microscopic 1 {/HPF} -[place] [facility] DO Work Phone: [phone] Urinalysis, Microscopic 5 {/HPF} 0-5 -[facility] DO Work Phone: [phone] Urinalysis, Microscopic <1 0-5 -[place] [facility] DO Work Phone: CT Abdomen and Pelvis WO con traston 08-03-2021 IMPRESSION: No acute abdominal or pelvic findings. Mild thickening or underdistention of the bladder for which laboratory correlation for infection is suggested. Large volume of stool throughout the colon suggesting constipation. No nephroureterolithiasis or hydroureteronephrosis. Trace pelvic fluid is nonspecific and may be physiologic. If clinically warranted, targeted ultrasound can be obtained as the pelvic structures are somewhat poorly evaluated on CT, particularly without contrast. RADIOLOGY EXAM: CT abdomen and Pelvis without contrast dated 08/03/2021 1:26 AM EST HISTORY: 26 years old Female with bilateral flank pain and hematuria reported. COMPARISON STUDY: Prior dated 12/11/2020. TECHNIQUE: Multidetector spiral CT of the abdomen and pelvis was performed from lung bases to pubic symphysis. Imaging was performed without IV contrast. Axial, coronal and sagittal multiplanar reformats were obtained from the axial data set by the technologist. Dose reduction techniques were achieved by using automated exposure control and/or adjustment of mA and/or kV according to patient size and/or use of iterative reconstruction technique. FINDINGS: Evaluation of solid organs is limited due to lack of intravenous contrast use. Lung Bases: No acute or significant lung base finding. Normal heart size. No pleural or pericardial effusion. Liver: The liver is normal in size. Stable coarse calcifications which are nonspecific within the right hepatic lobe. Gallbladder and Biliary Tree: Gallbladder is surgically absent. Spleen: Unremarkable previously noted hepatic and splenic enlargement is not appreciated. There is a mildly prominent right hepatic lobe which may be developmental. Pancreas: The pancreas is grossly normal in appearance. Adrenal Glands: Unremarkable. Kidneys: Kidneys are grossly normal without calculi or hydronephrosis. Bladder: Mild thickening of the bladder despite incomplete distention may be present. Bowel: The stomach is grossly normal in appearance. Small bowel and colon are normal in caliber and distribution. The appendix is normal in caliber without findings of acute appendicitis appreciated. There is a moderate volume of stool noted throughout the entire colon extending to the rectum consistent with constipation. Small fat-containing ventral umbilical hernia defect with no acute complication identified. Ascites: Absent. Lymphadenopathy: No mesenteric, retroperitoneal or periportal lymphadenopathy. Abdominal Wall and Mesentery: Unremarkable. Vasculature: The visualized abdominal aorta is normal in size and caliber. Evaluation of abdominal and pelvic vessels is limited due to lack of intravenous contrast. Pelvic Organs: Trace nonspecific pelvic fluid is identified. No definite suspicious adnexal mass. Pelvic organs are suboptimally evaluated on CT particularly without contrast. If clinically warranted consider correlation with targeted ultrasound. Musculoskeletal: No aggressive focal bony lesions, acute fractures or dislocation. RADIOLOGY Shashi Abreu DO - 08/03/2021 EXAM: CT abdomen and Pelvis without contrast dated 08/03/2021 1:26 AM EST HISTORY: 26 years old Female with bilateral flank pain and hematuria reported. COMPARISON STUDY: Prior dated 12/11/2020. TECHNIQUE: Multidetector spiral CT of the abdomen and pelvis was performed from lung bases to pubic symphysis. Imaging was performed without IV contrast. Axial, coronal and sagittal multiplanar reformats were obtained from the axial data set by the technologist. Dose reduction techniques were achieved by using automated exposure control and/or adjustment of mA and/or kV according to patient size and/or use of iterative reconstruction technique. FINDINGS: Evaluation of solid organs is limited due to lack of intravenous contrast use. Lung Bases: No acute or significant lung base finding. Normal heart size. No pleural or pericardial effusion. Liver: The liver is normal in size. Stable coarse calcifications which are nonspecific within the right hepatic lobe. Gallbladder and Biliary Tree: Gallbladder is surgically absent. Spleen: Unremarkable previously noted hepatic and splenic enlargement is not appreciated. There is a mildly prominent right hepatic lobe which may be developmental. Pancreas: The pancreas is grossly normal in appearance. Adrenal Glands: Unremarkable. Kidneys: Kidneys are grossly normal without calculi or hydronephrosis. Bladder: Mild thickening of the bladder despite incomplete distention may be present. Bowel: The stomach is grossly normal in appearance. Small bowel and colon are normal in caliber and distribution. The appendix is normal in caliber without findings of acute appendicitis appreciated. There is a moderate volume of stool noted throughout the entire colon extending to the rectum consistent with constipation. Small fat-containing ventral umbilical hernia defect with no acute complication identified. Ascites: Absent. Lymphadenopathy: No mesenteric, retroperitoneal or periportal lymphadenopathy. Abdominal Wall and Mesentery: Unremarkable. Vasculature: The visualized abdominal aorta is normal in size and caliber. Evaluation of abdominal and pelvic vessels is limited due to lack of intravenous contrast. Pelvic Organs: Trace nonspecific pelvic fluid is identified. No definite suspicious adnexal mass. Pelvic organs are suboptimally evaluated on CT particularly without contrast. If clinically warranted consider correlation with targeted ultrasound. Musculoskeletal: No aggressive focal bony lesions, acute fractures or dislocation. IMPRESSION IMPRESSION: No acute abdominal or pelvic findings. Mild thickening or underdistention of the bladder for which laboratory correlation for infection is suggested. Large volume of stool throughout the colon suggesting constipation. No nephroureterolithiasis or hydroureteronephrosis. Trace pelvic fluid is nonspecific and may be physiologic. If clinically warranted, targeted ultrasound can be obtained as the pelvic structures are somewhat poorly evaluated on CT, particularly without contrast. [employer] Radiology Study observation (narrative) [employer] CT Abdomen and Pelvis WO con trastOrdered By: Shashi Abreu on 08-03-2021 [employer] Work Phone: HCG ( test) Ql (U)o n 08-03-2021 [facility] HCG QUALITATIVE, URINEon HCG ( test) Ql (U) Negative NEGATIVE [facility] No Panel Informationon 08-03 [facility] URINALYSIS, MACROon 08-04-19 22 Bilirubin Ql (U) Negative NEGATIVE [facility] Clarity (U) CLEAR CLEAR [facility] Color (U) STRAW Abnormal YELLOW [facility] Glucose Test strip (U) [Mass/Vol] Negative NEGATIVE mg/dl [facility] Hemoglobin Ql (U) MODERATE Abnormal NEGATIVE [facility] Interpretation and review of laboratory results Abnormal [facility] Ketones (U) [Mass/Vol] Negative NEGATIVE mg/dl [facility] Leukocyte esterase Test strip Ql (U) SMALL Abnormal NEGATIVE [facility] Nitrite Ql (U) Negative NEGATIVE [facility] pH (U) 7.0 [pH] [facility] Protein Ql (U) Negative NEGATIVE mg/dl [facility] Specific gravity (U) [Rel density] 1.020 [facility] Urobilinogen (U) [Mass/Vol] 0.2 mg/dL [facility] URINE MICROSCOPICon 08-04-19 22 Bacteria LM.HPF (Urine sed) [#/Area] Negative NEGATIVE [facility] Casts LM.LPF (Urine sed) [#/Area] NONE NONE /LPF [facility] Crystals LM Nom (Urine sed) NONE NONE [facility] Epithelial cells LM Ql (Urine sed) TOO NUMEROUS TO COUNT /HPF [facility] Mucus Ql (Urine sed) Negative NEGATIVE [facility] RBC LM.HPF (Urine sed) [#/Area] 1 TO 5 NEGATIVE /HPF [facility] Urine sediment comments LM Juve (Urine sed) POSSIBLY CONTAMINATED SPECIMEN, CULTURE MUST BE ORDERED SEPARATELY IF DEEMED NECESSARY. [facility] WBC LM.HPF (Urine sed) [#/Area] '5 TO 10 NEGATIVE /HPF [facility] Tobacco Screening.on 022 Adult depression screening assessment No [facility] DO Work Phone: Fall risk assessment a) No falls within the last year [facility] DO Work Phone: Tobacco use status [facility] b) No [facility] [facility] DO Work Phone: Tobacco Screening.on 022 Adult depression screening assessment No [facility] DO Work Phone: Fall risk assessment a) No falls within the last year [facility] DO Work Phone: Tobacco use status [facility] b) No [facility] DO Work Phone: No Panel Informationon 06-03 Normal [facility] [place] Work Phone: Please click on the link to view the study images Normal [facility] Work Phone: Radiologyon 06-02-2021 XR Shoulder 2 Views Normal - [facility] Work Phone: HCG, Serum - Qualitativeon 1 07-12-2020 HCG ( test) Ql Negative Negative [facility] Work Phone: No Panel Informationon 05-11 -[place] [facility] [place] Work Phone: Complete Blood Count + Diffe rentialon 05-10-2021 Basophils/100 WBC (Bld) 0.6 % 0.0 - 2.0 -[place] [facility] DO Work Phone: Erythrocyte distribution width (RBC) [Ratio] 15.6 % above high threshold See Below [facility] Work Phone: Comment on above: Reference Range: 11. 5 - 14.5 Hematocrit (Bld) [Volume fraction] 37.6 % See Below [facility] Work Phone: Comment on above: Reference Range: 36. 0 - 46.0 Hemoglobin (Bld) [Mass/Vol] 12.1 g/dL See Below [facility] DO Work Phone: [phone] Comment on above: Reference Range: 12. 0 - 16.0 Lymphocytes/100 WBC (Bld) 47.4 % See Below [facility] Work Phone: Comment on above: Reference Range: 13. 0 - 44.0 MCHC (RBC) [Mass/Vol] 32.1 g/dL See Below [facility] Work Phone: [phone] Comment on above: Reference Range: 32. 0 - 36.0 MCV (RBC) [Entitic vol] 81 fL 80 - 100 [facility] Work Phone: [phone] Monocytes/100 WBC (Bld) 6.1 % 2.0 - 10.0 [facility] Work Phone: [phone] Neutrophils/100 WBC (Bld) 44.7 % See Below [facility] Work Phone: Comment on above: Reference Range: 40. 0 - 80.0 Platelets (Bld) [#/Vol] 301 10*3/uL 150 - 450 [facility] Work Phone: RBC (Bld) [#/Vol] 4.66 {x10E12/L} See Below [facility] Work Phone: Comment on above: Reference Range: 4.0 0 - 5.20 WBC (Bld) [#/Vol] 6.7 10*3/uL 4.4 - 11.3 [facility] Work Phone: Complete Blood Count + Differential 0.00 {x10E9/L} See Below [facility] Work Phone: Comment on above: Reference Range: 0.0 0 - 0.10 Complete Blood Count + Differential 0.10 {x10E9/L} See Below [facility] Work Phone: Comment on above: Reference Range: 0.0 0 - 0.70 Complete Blood Count + Differential 0.40 {x10E9/L} See Below [facility] Work Phone: Comment on above: Reference Range: 0.1 0 - 1.00 Complete Blood Count + Differential 3.20 {x10E9/L} See Below [facility] DO Work Phone: Comment on above: Reference Range: 1.2 0 - 4.80 Complete Blood Count + Differential 3.00 {x10E9/L} See Below [facility] DO Work Phone: Comment on above: Reference Range: 1.2 0 - 7.70 Percent differential counts (%) should be interpreted in the context of the absolute cell counts (cells/L). Complete Blood Count + Differential 1.2 % 0.0 - 6.0 [facility] DO Work Phone: Coronavirus 2019 RNA by PCR, Screening Asymptomticon 05-10-2021 Coronavirus 2019 RNA by PCR, Screening Asymptomtic Not detected Normal See Below [facility] DO Work Phone: Comment on above: SOURCE: Nasal, Nasop haryngealReference Range: Not Detected.This assay is designed to detect the N, ORF1ab and/or S genes of SARS-CoV-2 via nucleic acid amplification. A Negative (NOT DETECTED) result does not preclude 2019-nCoV infection since the adequacy of sample collection and/or low viral burden may result in presence of viral nucleic acids below the clinical sensitivity of this test method. Negative (NOT DETECTED) result should not be used as the sole basis for treatment or other patient management decisions. Rather negative results should be combined with clinical observations, patient history, and epidemiological information to make patient management decisions.Fact sheet for providers: https://www.fda.gov/media/075527/downloadFact sheet for patients: https://www.fda.gov/media/423632/downloadThis test has received FDA Emergency Use Authorization (EUA) and has been verified by [facility] ([facility]). This test is only authorized for the duration of time that circumstances exist to justify the authorization of the emergency use of in vitro diagnostic tests for the detection of SARS-CoV-2 virus and/or diagnosis of COVID-19 infection under section 564(b)(1) of the Act, 21 U.S.C. 360bbb-3(b)(1), unless the authorization is terminated or revoked sooner. [facility] is certified under CLIA-88 as qualified to perform high complexity testing. Testing is performed in the [facility] laboratories located at [address] [place] [address]. Laboratory - Chemistry and C hemistry - challengeon 05-10-2021 Albumin BCP dye [Mass/Vol] 4.7 g/dL 3.4 - 5.0 [facility] [facility] Work Phone: ALP [Catalytic activity/Vol] 85 U/L 33 - 110 -[facility] [facility] Work Phone: ALT With P-5'-P [Catalytic activity/Vol] 10 U/L 7 - 45 [facility] [facility] Work Phone: Comment on above: Patients treated wit h Sulfasalazine may generate falsely decreased results for ALT. Anion gap [Moles/Vol] 11 mmol/L 10 - 20 [facility] [facility] Work Phone: AST With P-5'-P [Catalytic activity/Vol] 12 U/L 9 - 39 [facility] [facility] Work Phone: Bilirubin [Mass/Vol] 0.4 mg/dL 0.0 - 1.2 [facility] [facility] Work Phone: Calcium [Mass/Vol] 9.7 mg/dL 8.6 - 10.[address] [facility] [facility] Work Phone: Chloride [Moles/Vol] 104 mmol/L 98 - 107 [facility] [facility] Work Phone: CO2 [Moles/Vol] 27 mmol/L 21 - 32 -[facility] [facility] Work Phone: [phone] Creatinine [Mass/Vol] 0.84 mg/dL See Below -[facility] [facility] Work Phone: [phone] Comment on above: Reference Range: 0.5 0 - 1.05 Glucose [Mass/Vol] 76 mg/dL 74 - [address] [facility] Work Phone: [phone] Potassium [Moles/Vol] 3.5 mmol/L 3.5 - 5.3 -[facility] [facility] Work Phone: [phone] Protein [Mass/Vol] 7.3 g/dL 6.4 - 8.2 -[facility] [facility] Work Phone: [phone] Sodium [Moles/Vol] 138 mmol/L 136 - 145 -[facility] Work Phone: [phone] Urea nitrogen [Mass/Vol] 11 mg/dL 6 - 23 -[facility] [facility] Work Phone: Laboratory - Coagulationon 1 07-11-2020 aPTT Coag (PPP) [Time] 30 s 26 - 39 [facility] [facility] Work Phone: Comment on above: Note new reference r sophia as of 04/27/2021 at 10:00am. INR Coag (PPP) [Relative time] 1.1 {INR} 0.9 - 1.1 [facility] [facility] Work Phone: PT Coag (PPP) [Time] 12.9 s 9.8 - 13.4 [facility] [facility] Work Phone: Comment on above: Note new reference r sophia as of 04/27/2021 at 10:00am. No Panel Informationon 05-10 >60 >60 [facility] [facility] Work Phone: [phone] Comment on above: CALCULATIONS OF FLO MATED GFR ARE PERFORMED USING THE MDRD STUDY EQUATION FOR THE IDMS-TRACEABLE CREATININE METHODS. CLIN CHEM 2007;53:766-72 Urinalysison 05-10-2021 Color (U) Yellow See Below -[facility] [facility] Work Phone: Comment on above: Reference Range: STR AW,YELLOW Glucose Ql (U) Negative NEGATIVE -[facility] [facility] Work Phone: Ketones Ql (U) Negative NEGATIVE -[facility] [facility] Work Phone: Leukocyte esterase Test strip Ql (U) Negative NEGATIVE -[place] [facility] [facility] Work Phone: [phone] pH (U) 5.0 [pH] 5.0 - 8.0 -[facility] [facility] Work Phone: Protein (U) [Mass/Vol] Negative NEGATIVE [facility] Work Phone: RBC (U) [#/Vol] Negative NEGATIVE -[place] [facility] [facility] Work Phone: Specific gravity (U) [Rel density] 1.026 1 See Below [facility] [facility] Work Phone: Comment on above: Reference Range: 1.0 05 - 1.035 Urinalysis Negative NEGATIVE -[facility] [facility] Work Phone: [phone] Urinalysis <2.0 0.0 - 1.9 -[facility] [facility] Work Phone: Urinalysis HAZY CLEAR -[facility] [facility] Work Phone: [phone] Urinalysis, Microscopicon Urinalysis, Microscopic NONE 0-5 -[facility] [facility] Work Phone: XR CHEST PA/APon 05-08-2021 XR CHEST PA/AP EXAMINATION: XR CHEST PA/AP 05/07/2021 10:07 pm HISTORY: ORDERING SYSTEM PROVIDED HISTORY: chest pain x 1 month, TECHNOLOGIST PROVIDED HISTORY: Illness/Other Reason for exam: chest pain x1 month Cancer History: Surgery, RadiationHistory: Encounter Type: Initial Additional signs and symptoms: none ORDERING SYSTEM PROVIDED DIAGNOSIS CODES: COMPARISON: September 21, 2020. FINDINGS: A single AP portable upright view of the chest demonstrates the lungs to be clear of consolidations and no effusions are identified. No evidence for pulmonary edema. The heart size is within normal limits and the osseous structures appear intact. IMPRESSION: No acute findings. DPR/mll Workstation ID: [id number] Dictated by: EAGLE VARGAS on MonMay 07, 2021 10:55:31 PM EST Transcribed by: ADOLFO BERMAN on MonMay 07, 2021 10:56:48 PM EST Finalized by: EAGLE VARGAS on MonMay 07, 2021 10:58:45 PM EST [facility] Comment on above: Order Comment: Injur y/Trauma or Illness?:Illness/Other How long have you had these symptoms (acute/chronic)?:Acute Reason for exam?:chest pain x1 month History of cancer?: Surgeries, chemotherapy, or radiation?: Type of Exam?:Initial Additional signs and symptoms?:none Triage - EDon 05-07-2021 Triage - ED Quick Triage: Are You maybe Have You Given In The Last 6 Weeksno Are You Currently Breastfeedingno Chart Review: ARRIVAL INFORMATION Mode of Arrival: private vehicle CHIEF COMPLAINT SUSSY CRANE is a Female patient with a chief complaint of rib pain/injury (pt has had bilateral rib pain with nausea for about 10 months. pt is scheduled for shoulder surgery on monday.). Triage Date/Time: 07-May-2021 20:17 MELO: 3V Vital Signs: Temperature: 98.7F ( 37.0C) taken temporal Blood Pressure: 136/87 Mean: Heart Rate: 65 Respiratory Rate: 16 Pulse Oximetry: 100% on room air, no respiratory support. Height: 5 feet 4.00 inches. 162.5 CM Weight: 141.0 pounds. Calculated 64.0 kg. (stated) Calculated BMI (kg/m2): 24.236 Calculated BSA (m2) 1.70 Kelby Coma Scale: Best Eye Response: (E4) spontaneous Best Motor Response: (M6) obeys commands Best Verbal Response: (V5) oriented [place] Score: 15 Allergies: no Patient has homicidal thoughts: no Risk Screens Suicide Risk Screen In the Past Month: Have you wished you were or wished you could go to sleep and not wake up no In the Past Month: Have you had any actual thoughts of killing yourself no In Your Lifetime: Have you ever done anything, started to do anything, or prepared to do anything to end your life no Sanford Fall Scale Screening Has the patient fallen before (or is the patient in the ED as a result of a fall) has not had a fall Does the patient have an impaired gait does not have impaired gait Is the patient cognitively impaired not cognitively impaired Interventions: Sanford Fall Interventions: LOW INTERVENTIONS: *patient oriented to surroundings and call system, * patient/family falls education completed and documented, *patients fall status communicated during bedside handoff, *whiteboard updated, *mode of toileting discussed with patient, *bed in low position with brakes locked, *call light in reach, * non-skid footwear TRAVEL HISTORY Travel History Coronavirus Screening: no exposure or symptoms Travel Exposure History: NO travel to International locations in the past 30 days PAIN Pain Scale Used: CARMENCITA Past Medical History: Past Medical History Reviewedyes Electronic Signatures: Griselda Cooney (EMELIA) (Signed 07-May-2021 20:20) Entered: Risk Screens, Pain, Travel History, Chart Review, Scores, Past Medical History Authored: Quick Triage, Risk Screens, Pain, Travel History, Chart Review, Scores, Past Medical History Last Updated: 07-May-2021 20:20 by Griselda Cooney) [facility] Provider Note - ED v2on 02-27 Provider Note - ED v2 Provider Note - ED v2: Chart Review: ED NOTES ED NOTES: 26-year-old female with no reported past medical history presents the emergency department for evaluation of URI symptoms x1 week. Her son gave her a cold she suspects. She believes she has bronchitis. Denies headache, dizziness, fevers, chills, chest pain, shortness of breath, abdominal pain, nausea, vomiting. Is wondering if she can go back to work. only cough, chest beltran when she coughs Otherwise she has no chest pain at rest, or with breathing again unless she is coughing.. Covid -3 days ago. The patient had Covid back in June of this year. She has not been vaccinated since. Past medical history: As above Past surgical history: Reviewed Social history: No reported tobacco, alcohol, or drug use REVIEW OF SYSTEMS: Gen.: (-) fatigue, (-) fever, (-) chills Eyes: (-) vision changes, (-) double vision, ENT: (-) sore throat, (-) nasal congestion, (-) ear pain Cardiac: (-) chest pain, (-) palpitations, Pulmonary: (-) shortness of breath, (+) cough Neuro: (-) headache, (-) confusion GI: (-) abdominal pain, (-) nausea, (-)vomiting, (-)diarrhea, (-)constipation : (-) discharge, (-) dysuria, (-) frequency Musculoskeletal: (-) extremity pain, (-) back pain, (-) swelling Skin: (-) rashes Review of systems is otherwise negative unless stated above or in history of present illness. PHYSICAL EXAM: GENERAL: Alert & oriented. No acute distress. Non toxic appearing, comfortable and cooperative. HEAD: Normocephalic. Atraumatic. NECK: Full ROM, no stiffness. NEUROLOGY: Normal speech and mentation. No focal findings identified. EYES: PERRLA, EOMI. Conjunctiva pink. Sclera normal. ENT: Mucous membranes moist. Hearing grossly normal. Symmetrical facial movements. CARDIAC: Regular rate and rhythm. No murmurs. No jugular venous distention. No peripheral cyanosis or pallor. PULMONARY: No respiratory distress. No accessory muscles use. CTAB. No wheezes. No rales. No stridor. ABDOMINAL: Soft and nontender in all quadrants. No rebound or guarding. No abdominal distention. No gross abdominal masses. No pulsatile mass. SKIN: fungal rash noted on the left arm, patient states its been there for 6 year. MUSCULOSKELETAL: Moves all extremities. No edema PSYCHIATRIC: Appropriate mood and affect. MEDICAL DECISION MAKIN-year-old female presented to emergency department for evaluation of URI symptoms x1 day. Vital signs are normal, patient is in no acute distress. No adventitious lung sounds. No increased work of breathing. No fever. No indication for imaging at this time. Most likely viral in etiology as it is spread from her son to herself. As patient is Covid -3 days ago, will not repeat swab at this time. Discussed return precautions, follow-up recommendations expectant management. Daniel Vega, Emergency Medicine, PGY-4 HISTORY OF PRESENTING ILLNESS SUSSY is a 26 year old Female and was seen by me at 18-Mar-2021 15:41 for a chief complaint of cold symptoms . Other complaints include: NEGATIVE COVID TEST YESTERDAY(1). Triage Information: Most recent Vital Sign Value Date Temp (F): 97.3 03-18-2021 15:29 Temp (C): 36.3 03-18-2021 15:29 Heart Rate (beats/min): 79 03-18-2021 15:29 Respirations (breaths/min): 18 03-18-2021 15:29 SpO2 (%): 98 03-18-2021 15:29 BP Systolic (mm Hg): 131 03-18-2021 15:29 BP Diastolic (mm Hg): 81 03-18-2021 15:29 PAST MEDICAL HISTORY ATTESTATION: I have reviewed and confirmed nurse's/medic's notes for patient's medications, allergies, and medical, surgical, family and social history ALLERGIES/INTOLERANCES: No Known Allergies HEALTH HISTORY: No documented data. 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 I personally obtained the stack and critical portions of the history and physical exam or was physically present for stack and critical portions performed by the resident/fellow. I reviewed the resident/fellows documentation and discussed the patient with the residen (more content not included)... Normal [facility] Triage - EDon 03-18-2021 Triage - ED Quick Triage: Are You no Are You Currently Breastfeedingno Chart Review: PRIMARY ASSESSMENT SUSSY CRANE's primary assessment is Within Defined Limits. The airway is open and patent. Breathing spontaneous and unlabored with clear breath sounds bilaterally. Circulation is normal with good peripheral pulses. Skin is warm and dry and color is normal for race. ARRIVAL INFORMATION Mode of Arrival: private vehicle CHIEF COMPLAINT SUSSY CRANE is a Female patient with a chief complaint of cold symptoms. Onset of the Complaint: 08-Mar-2021 Other Complaints: NEGATIVE COVID TEST YESTERDAY Triage Date/Time: 18-Mar-2021 15:29 MELO: 4 Pain Rating (0-10): 0 = None Vital Signs: Temperature: 97.3F ( 36.3C) taken temporal Blood Pressure: 131/81 Mean: Heart Rate: 79 Respiratory Rate: 18 Pulse Oximetry: 98% Height: 5 feet 4.00 inches. 162.5 CM Weight: 149.9 pounds. Calculated 68.0 kg. (stated) Calculated BMI (kg/m2): 25.751 Calculated BSA (m2) 1.75 [place] Coma Scale: Best Eye Response: (E4) spontaneous Best Motor Response: (M6) obeys commands Best Verbal Response: (V5) oriented Kelby Score: 15 Allergies: no Patient has homicidal thoughts: no Risk Screens Suicide Risk Screen In the Past Month: Have you wished you were or wished you could go to sleep and not wake up no In the Past Month: Have you had any actual thoughts of killing yourself no In Your Lifetime: Have you ever done anything, started to do anything, or prepared to do anything to end your life no Sanford Fall Scale Screening Has the patient fallen before (or is the patient in the ED as a result of a fall) has not had a fall Does the patient have an impaired gait does not have impaired gait Is the patient cognitively impaired not cognitively impaired Interventions: Sanford Fall Interventions: LOW INTERVENTIONS: *patient oriented to surroundings and call system, * patient/family falls education completed and documented, *patients fall status communicated during bedside handoff, *whiteboard updated, *mode of toileting discussed with patient, *bed in low position with brakes locked, *call light in reach, * non-skid footwear PAST MEDICAL HISTORY Immunization History: Last Known Tetanus Immunization: Unknown TRAVEL HISTORY Travel History Coronavirus Screening: positive for symptoms Travel Exposure History: NO travel to International locations in the past 30 days PAIN Pain Scale Used: CARMENCITA Pain Rating (0-10): 0 = None Past Medical History: Past Medical History Reviewedyes Electronic Signatures: Cordelia Knight (EMELIA) (Signed 18-Mar-2021 15:31) Entered: Risk Screens, Pain, ABCD, Immunizations, Travel History, Chart Review, Scores, Past Medical History Authored: Quick Triage, Risk Screens, Pain, ABCD, Immunizations, Travel History, Chart Review, Scores, Past Medical History Last Updated: 18-Mar-2021 15:31 by Cordelia Knight (EMELIA) Normal [facility] Coronavirus 2019 RNA by PCR, Screening Asymptomticon 12-26-2020 Coronavirus 2019 RNA by PCR, Screening Asymptomtic Not detected Normal See Below [facility] Work Phone: Comment on above: SOURCE: Nasal, Nasop haryngealReference Range: Not Detected.This assay is designed to detect the N, ORF1ab and/or S genes of SARS-CoV-2 via nucleic acid amplification. A Negative (NOT DETECTED) result does not preclude 2019-nCoV infection since the adequacy of sample collection and/or low viral burden may result in presence of viral nucleic acids below the clinical sensitivity of this test method. Negative (NOT DETECTED) result should not be used as the sole basis for treatment or other patient management decisions. Rather negative results should be combined with clinical observations, patient history, and epidemiological information to make patient management decisions.Fact sheet for providers: https://www.fda.gov/media/006354/downloadFact sheet for patients: https://www.fda.gov/media/480979/downloadThis test has received FDA Emergency Use Authorization (EUA) and has been verified by [facility] ([facility]). This test is only authorized for the duration of time that circumstances exist to justify the authorization of the emergency use of in vitro diagnostic tests for the detection of SARS-CoV-2 virus and/or diagnosis of COVID-19 infection under section 564(b)(1) of the Act, 21 U.S.C. 360bbb-3(b)(1), unless the authorization is terminated or revoked sooner. [facility] is certified under CLIA-88 as qualified to perform high complexity testing. Testing is performed in the [facility] laboratories located at [address] [place] [address]. COMPREHENSIVE PANELon 2020 Albumin [Mass/Vol] 4.5 g/dL Normal 3.4 - 5.0 [facility] Comment on above: Performed By: #### C MP #### [place] [address] ALP [Catalytic activity/Vol] 86 U/L Normal 33 - 110 [facility] Comment on above: Performed By: #### C MP #### [address] [address] ALT [Catalytic activity/Vol] 12 U/L Normal 7 - 45 [facility] Comment on above: Result Comment: Lyndsey ents treated with Sulfasalazine may generate falsely decreased results for ALT. Performed By: #### C MP #### [address] [address] Anion gap [Moles/Vol] 10 mmol/L Normal 10 - 20 [facility] Comment on above: Performed By: #### C MP #### [address] [address] AST [Catalytic activity/Vol] 12 U/L Normal 9 - 39 [facility] Comment on above: Performed By: #### C MP #### [address] [address] Bilirubin [Mass/Vol] 0.3 mg/dL Normal 0.0 - 1.2 [facility] Comment on above: Performed By: #### C MP #### [address] [address] Calcium [Mass/Vol] 9.4 mg/dL Normal 8.6 - 10.3 [facility] Comment on above: Performed By: #### C MP #### [address] [address] Chloride [Moles/Vol] 104 mmol/L Normal 98 - 107 [facility] Comment on above: Performed By: #### C MP #### [address] [address] Creatinine [Mass/Vol] 0.91 mg/dL Normal 0.50 - 1.05 [facility] Comment on above: Performed By: #### C MP #### [address] [address] GFR- AM. >60 Normal >60 [facility] Comment on above: Result Comment: CALC ULATIONS OF ESTIMATED GFR ARE PERFORMED USING THE MDRD STUDY EQUATION FOR THE IDMS-TRACEABLE CREATININE METHODS. CLIN CHEM 2007;53:766-72 Performed By: #### C MP #### [address] [address] GFR-NON AM. >60 Normal >60 [facility] Comment on above: Performed By: #### C MP #### [address] [address] Glucose [Mass/Vol] 104 mg/dL High 74 - 99 [facility] Comment on above: Performed By: #### C MP #### [address] [address] HCO3 (Bld) [Moles/Vol] 27 mmol/L Normal 21 - 32 [facility] Comment on above: Performed By: #### C MP #### [address] [address] Potassium [Moles/Vol] 4.2 mmol/L Normal 3.5 - 5.3 [facility] Comment on above: Performed By: #### C MP #### [address] [address] Protein [Mass/Vol] 7.0 g/dL Normal 6.4 - 8.2 [facility] Comment on above: Performed By: #### C MP #### [address] [address] Sodium [Moles/Vol] 137 mmol/L Normal 136 - 145 [facility] Comment on above: Performed By: #### C MP #### [address] [address] Urea nitrogen [Mass/Vol] 13 mg/dL Normal 6 - 23 [facility] Comment on above: Performed By: #### C MP #### [address] [address] LIPASEon 12-23-2020 Lipase [Catalytic activity/Vol] 15 U/L Normal 9 - 82 [facility] Comment on above: Result Comment: Eva puncture immediately after or during the administration of Metamizole may lead to falsely low results. Testing should be performed immediately prior to Metamizole dosing. P-zrrmjz-u-benzoquinone imine (metabolite of Acetaminophen) will generate erroneously low results in samples for patients that have taken toxic doses of acetaminophen. Performed By: #### L IPAS #### [address] [address] Laboratory - Chemistry and C hemistry - challengeon 12-23-2020 Albumin BCP dye [Mass/Vol] 4.5 g/dL 3.4 - 5.0 [facility] Work Phone: ALP [Catalytic activity/Vol] 86 U/L 33 - 110 [facility] Work Phone: ALT With P-5'-P [Catalytic activity/Vol] 12 U/L 7 - 45 [facility] Work Phone: Comment on above: Patients treated wit h Sulfasalazine may generate falsely decreased results for ALT. Anion gap [Moles/Vol] 10 mmol/L 10 - 20 [facility] [place] Work Phone: AST With P-5'-P [Catalytic activity/Vol] 12 U/L 9 - 39 [facility] [place] Work Phone: Bilirubin [Mass/Vol] 0.3 mg/dL 0.0 - 1.2 [facility] [place] Work Phone: Calcium [Mass/Vol] 9.4 mg/dL 8.6 - 10.[address] [facility] [place] Work Phone: Chloride [Moles/Vol] 104 mmol/L 98 - 107 [facility] [place] Work Phone: CO2 [Moles/Vol] 27 mmol/L 21 - 32 -[facility] [place] Work Phone: Creatinine [Mass/Vol] 0.91 mg/dL See Below [facility] [place] Work Phone: Comment on above: Reference Range: 0.5 0 - 1.05 Glucose [Mass/Vol] 104 mg/dL above high threshold 74 - 99 -[facility] [place] Work Phone: Potassium [Moles/Vol] 4.2 mmol/L 3.5 - 5.3 -[facility] [place] Work Phone: Protein [Mass/Vol] 7.0 g/dL 6.4 - 8.[address] Work Phone: Sodium [Moles/Vol] 137 mmol/L 136 - [address] [place] Work Phone: Urea nitrogen [Mass/Vol] 13 mg/dL 6 - 23 [facility] [place] Work Phone: Lipase, Serumon 12-23-2020 Lipase [Catalytic activity/Vol] 15 U/L 9 - 82 -[facility] Work Phone: Comment on above: Venipuncture immedia tely after or during the administration of Metamizole may lead to falsely low results. Testing should be performed immediately prior to Metamizole dosing. B-txxrzd-r-benzoquinone imine (metabolite of Acetaminophen) will generate erroneously low results in samples for patients that have taken toxic doses of acetaminophen. No Panel Informationon 12-23 >60 >60 -[facility] Work Phone: Comment on above: CALCULATIONS OF FLO MATED GFR ARE PERFORMED USING THE MDRD STUDY EQUATION FOR THE IDMS-TRACEABLE CREATININE METHODS. CLIN CHEM 2007;53:[id number] Provider Note - ED v2on 11-27 Provider Note - ED v2 Provider Note - ED v2: Chart Review: ED NOTES ED NOTES: Source of Information: Patient. EMR was reviewed for previous records. ------- HPI: Rash, abdominal pain. There is 25-year-old white female presents to the emerge department secondary to a rash that began approximately 3 weeks ago initially under the left arm states that the rash has now spread to the face skin scalp right upper extremity abdomen and chest. She describes the rash as very itchy. Patient states that she was seen in the ED 3 days ago started on Medrol Dosepak as well as antibiotics for this rash and was told to follow-up with a utility operator yarn she states that she was also told that if the rash got worse to return to the ED for reevaluation. She denies any history of fevers chills or other systemic symptoms. States that she has had intermittent episodes of right upper quadrant abdominal pain after getting her gallbladder removed. She denies any history of nausea or vomiting associated with this. No history of jaundice. ------- PMH: Right labrum repair PSH: Cholecystectomy in August Social Hx: The patient denies any use of alcohol or illegal drugs. Occasional use of alcohol. Fam: MEDS: Bactrim DS, Keflex, Medrol Dosepak ALLERGIES: No known drug allergies ------- PHYSICAL EXAM: General: Patient alert, awake, oriented X3, appears be no obvious distress, nontoxic, cooperative Skin: Warm. Dry. There is a erythematous papular rash with pustules and other areas of rash are more confluent dry consistent with the atopic dermatitis. There is mild increase in warmth diffusely in these areas of rash. No obvious drainage noted. Eyes: PEARTLA, EOMIs intact, sclera white, conjunctiva clear HEENT: Atraumatic. Normo-cephalic. Oral nasal mucosa pink and moist. Neck: Supple without meningismus, no lymphadenopathy. CV: Regular rate and rhythm without murmurs, heaves, lifts or thrills. Respiratory: Nonlabored breathing. There are no retractions or tachypnea. Lungs are clear to auscultation bilaterally. GI: Soft, nontender, without gross distention, bowel sounds present in all 4 quadrants. There is no pulsatile masses. There is no CVA tenderness. MUSC: There is no joint swelling or bony tenderness on exam. Neuro: Cranial nerves II - XII grossly intact. Speech is fluent. No focal neurologic deficits are noted on exam. Lower extremities: There is no peripheral edema bilaterally, negative Homans sign. No palpable cords. Distal pulses are present in both lower extremities. Psych: Maintains eye contact. Cooperative. ------- ED course: Patient was seen and evaluated due to complaints of a rash initially started in her left upper extremity. Patient also states that he has been experiencing intermittent episodes of abdominal pain since getting her gallbladder out. Patient was ordered a CMP that was unremarkable for acute abnormality. Patient had previously been started on Bactrim DS, Keflex and Medrol Dosepak. Patient was prescribed Atarax for sleep at nighttime as well as a prescription for high-dose triamcinolone cream. She was referred to follow-up with a utility operator yarn concerning her rash and discharged home in stable satisfactory condition. This chart was dictated with the use of [employer] software within the framework of the current electronic medical records software. Attempts were made to edit in real time, given time constraints there is the potential for inaccuracies in my dictation. Rahul Hirsch, DO HISTORY OF PRESENTING ILLNESS SUSSY is a 25 year old Female and was seen by me at 22-Dec-2020 23:36 for a chief complaint of rash (Rash to lt arm that appears angry, pt states it beltran like fire. Has it for a month. Rash has some blisters at other parts of the body.)(1). Triage Information: Most recent Vital Sign Value Date Temp (F): 98.9 12-22-2020 23:05 Temp (C): 37.1 12-22-2020 23:05 Heart Rate (beats/min): 86 12-22-2020 23:05 Respirations (breaths/min): 18 12-22-2020 23:05 SpO2 (%): 97 12-22-2020 23:05 BP Systolic (mm Hg): 126 12-22-2020 23:05 BP Diastolic (mm Hg): 80 12-22-2020 23:05 PAST MEDICAL HISTORY ATTESTATION: I have reviewed and confirmed nurse's/medic's notes for patient's medications, allergies, and medical, surgical, family and social history ALLERGIES/INTOLERANCES: No Known Allergies HEALTH HISTORY: No documented data. (more content not included)... Normal [facility] Risk Screen - Adult Emergenc yon 12-23-2020 Risk Screen - Adult Emergency Preferred Language: Preferred Language: Preferred Language for Discussing Health Care (patient/designee)[place]an Advanced Directives: Advance Directive/DNRno Family Violence Adult: Abuse Screen: Are you or have you been threatened or abused physically, emotionally, or sexually by anyoneno Learning Assessment (Patient): Learning Assessment (Patient): Patient is Able to be Assessed for Learningyes Factors Influencing Readiness to Learnpain Factors that Impact Ability to Learnnone Devices/Methods Used to Communicatenone Learning Preferenceswritten material Cultural Considerationsnone Developmental Considerationsnone Amish Considerationsnone Other Learnersnone Learning Assessment (Other Learner): Learning Assessment (Other Learner): Other learner availableno Pressure Injury/TB/Substance: Pressure Injury: Pressure Injury Present on Admissionno Do you have a coughno Smoking Statusnever smoker Alcohol Useoccasionally Drug Usedenies Drug 2 Usedenies Admission Risk Screen: Significant IndicatorsComplete CAGE: CAGE: Is this an injured patient at a Trauma Center ([facility] [place]): no Electronic Signatures: Bettie Mcintosh (SUPV) (Signed 22-Dec-2020 23:14) Authored: Preferred Language, Advanced Directives, Family Violence Adult, Learning Assessment (Patient), Learning Assessment (Other Learner), Pressure Injury/TB/Substance, Pressure Injury, CAGE Last Updated: 22-Dec-2020 23:14 by Bettie Mcintosh (SUPV) [facility] Triage - EDon 12-23-2020 Triage - ED Quick Triage: Are You no Have You Given In The Last 6 Weeksno Are You Currently Breastfeedingno The patient and/or guardian verbally acknowledges placement for services into the following (when Urgent Care Service hours are operating):emergency department Chart Review: ARRIVAL INFORMATION Mode of Arrival: private vehicle CHIEF COMPLAINT SUSSY CRANE is a Female patient with a chief complaint of rash (Rash to lt arm that appears angry, pt states it beltran like fire. Has it for a month. Rash has some blisters at other parts of the body.). Triage Date/Time: 22-Dec-2020 23:05 MELO: 3 Pain Rating (0-10): 4 = Moderate Vital Signs: Temperature: 98.9F ( 37.1C) taken oral Blood Pressure: 126/80 Mean: Heart Rate: 86 Respiratory Rate: 18 Pulse Oximetry: 97% on room air, no respiratory support. Height: 5 feet 4 inches. 162.5 CM Weight: 149.9 pounds. Calculated 68.0 kg. (stated) Calculated BMI (kg/m2): 25.751 Calculated BSA (m2) 1.75 Kel[place] Coma Scale: Best Eye Response: (E4) spontaneous Best Motor Response: (M6) obeys commands Best Verbal Response: (V5) oriented Centerton Score: 15 Cough lasting greater than 3 weeks: no Patient immunocompromised related to: N/A Allergies: no Last menstrual period: 22-Nov-2020 Patient has homicidal thoughts: no Risk Screens Suicide Risk Screen In the Past Month: Have you wished you were or wished you could go to sleep and not wake up no In the Past Month: Have you had any actual thoughts of killing yourself no In Your Lifetime: Have you ever done anything, started to do anything, or prepared to do anything to end your life no Sanford Fall Scale Screening Has the patient fallen before (or is the patient in the ED as a result of a fall) has not had a fall Does the patient have an impaired gait does not have impaired gait Is the patient cognitively impaired not cognitively impaired Interventions: Sanford Fall Interventions: LOW INTERVENTIONS: *patient oriented to surroundings and call system, * patient/family falls education completed and documented, *patients fall status communicated during bedside handoff, *whiteboard updated, *mode of toileting discussed with patient, *bed in low position with brakes locked, *call light in reach, * non-skid footwearlow interventions except: patient oriented to surroundings and call systemlow interventions except: patient/family falls education completed and documentedlow interventions except: patients fall status communicated during bedside handoff, whiteboard updatedlow interventions except: mode of toileting discussed with patientlow interventions except: bed in low position with brakes lockedlow interventions except: call light in reach and low interventions except: non-skid footwear TRAVEL HISTORY Travel History Coronavirus Screening: no exposure or symptoms and congregate living Coronavirus Screening Details: Received her COVID vaccines Travel Exposure History: NO travel to International locations in the past 30 days PAIN Pain Scale Used: CARMENCITA Pain Rating (0-10): 4 = Moderate Past Medical History: Past Medical History Reviewedyes cholecystectomy: Past Surgical History, Active Electronic Signatures: Bettie Mcintosh (SUPV) (Signed 22-Dec-2020 23:13) Entered: Risk Screens, Pain, Travel History, Chart Review, Scores, Past Medical History Authored: Quick Triage, Risk Screens, Pain, Travel History, Chart Review, Scores, Past Medical History Last Updated: 22-Dec-2020 23:13 by Bettie Mcintosh (SUPV) Normal [facility] HCG,URINEon 12-19-2020 Beta HCG ( test) Ql (U) Negative Normal Negative [facility] Comment on above: Performed By: #### H [facility] #### [address] [address] Provider Note - ED v2on - Provider Note - ED v2 Provider Note - ED v2: Chart Review: ED NOTES ED NOTES: 25-year-old female presents with a 3-week history of a rash. Patient states she was treated for shingles which have not improve the rash. Patient states that she also was using some type of topical ointment that was causing substantial burning to the affected areas. Patient states the areas are seeping and are quite pruritic and at times painful. Patient denies any nausea vomiting or diarrhea. Patient will be given Solu-Medrol 125 mg IM prior to discharge. Have instructed her to follow-up with her family medical doctor or utility operator yarn and take medication as prescribed. If symptoms worsen she can return to ED. HISTORY OF PRESENTING ILLNESS SUSSY is a 25 year old Female and was seen by me at 19-Dec-2020 04:30 for a chief complaint of rash (c/o rash on left arm, started approx 3 weeks ago, approx week ago went to PCP was told it was shingles, took the medication for it, but has not got better, has worsened. c/o the feeling of stinging and burning, with leaking clear fluid, with some itching.) . The historian is the patient. Triage Information: Most recent Vital Sign Value Date Temp (F): 97.9 12-19-2020 04:29 Temp (C): 36.6 12-19-2020 04:29 Heart Rate (beats/min): 73 12-19-2020 04:29 Respirations (breaths/min): 18 12-19-2020 04:29 SpO2 (%): 96 12-19-2020 04:29 BP Systolic (mm Hg): 142 12-19-2020 04:29 BP Diastolic (mm Hg): 86 12-19-2020 04:29 PAST MEDICAL HISTORY ATTESTATION: I have reviewed and confirmed nurse's/medic's notes for patient's medications, allergies, and medical, surgical, family and social history ALLERGIES/INTOLERANCES: No Known Allergies HEALTH HISTORY: No documented data. OUTPATIENT MEDICATIONS: Home Medications Review Status for Reconciliation: N/A Med Status: N/A No documented data. SIGNIFICANT EVENTS: No documented data. URBAN PLANNING TEACHER: Is : no(1) Is : no(1) REVIEW OF SYSTEMS INTEGUMENTARY: POSITIVE for: itching and lesions; rash All other systems reviewed and are negative RESULTS/VITAL SIGNS RESULTS: Recent Lab Results: I have reviewed these laboratory results: Urine Test 19-Dec-2020 04:42:00 ResultValue HCG, Urine NEGATIVE VITAL SIGNS: T PRBP SpO2O2(LPM) %FiO2 Method 19-Dec-2020 04:29:[id number] 96 room air, no respiratory support PHYSICAL EXAM Image Comments: Physical [id number] somewhat seeping pleuritic erythematous scabbed lesions involving the left axilla and area surrounding it. She also has some very minimal areas on her face upper chest region. Lungs are clear Heart is regular rate and rhythm Abdomen soft nontender CLINICAL IMPRESSION Diagnosis/Annotation: ED Dx Name:Dermatitis, contact Code:L25.9 Name:Cellulitis of axilla Code:L03.119 Disposition: discharged Type: home ATTESTATION Comments/Additional Findings: 1 take medication as prescribed 2 no topical ointments 3 keep area dry 4 follow-up with family medical doctor 1 to 2 days or utility operator yarn, if symptoms worsen return to ED. CRITICAL CARE TIME Is this a critically ill patient: no Electronic Signatures: Leti Angela () (Signed 19-Dec-2020 05:28) Authored: ED Notes, HPI, PMH, ROS, PE, Results/Vital Signs, Clinical Impression, Attestation, Chart Review, Scores Last Updated: 19-Dec-2020 05:28 by Leti Angela () References: 1. Data Referenced From Triage - ED 19-Dec-2020 04:29 [facility] Triage - EDon 12-19-2020 Triage - ED Quick Triage: Are You no Have You Given In The Last 6 Weeksno Are You Currently Breastfeedingno The patient and/or guardian verbally acknowledges placement for services into the following (when Urgent Care Service hours are operating):emergency department Risk Screens: Sanford Fall Scale Scoring Reference [email or web address] Chart Review: PRIMARY ASSESSMENT SUSSY CRANE's primary assessment is Within Defined Limits. The airway is open and patent. Breathing spontaneous and unlabored with clear breath sounds bilaterally. Circulation is normal with good peripheral pulses. Skin is warm and dry and color is normal for race. ARRIVAL INFORMATION Means of Arrival: Ambulatory Mode of Arrival: private vehicle Arrival From: home Accompanied By: self CHIEF COMPLAINT SUSSY CRANE is a Female patient with a chief complaint of rash (c/o rash on left arm, started approx 3 weeks ago, approx week ago went to PCP was told it was shingles, took the medication for it, but has not got better, has worsened. c/o the feeling of stinging and burning, with leaking clear fluid, with some itching.). Triage Date/Time: 19-Dec-2020 04:29 MELO: 3V Pain Rating (0-10): 5 = Moderate Pain location: left arm Vital Signs: Temperature: 97.9F ( 36.6C) taken temporal Blood Pressure: 142/86 Mean: Heart Rate: 73 Respiratory Rate: 18 Pulse Oximetry: 96% on room air, no respiratory support. Height: 5 feet 4 inches. 162.5 CM Weight: 150.3 pounds. Calculated 68.2 kg. (stated) Calculated BMI (kg/m2): 25.827 Calculated BSA (m2) 1.75 [place] Coma Scale: Best Eye Response: (E4) spontaneous Best Motor Response: (M6) obeys commands Best Verbal Response: (V5) oriented Centerton Score: 15 Allergies: no Last menstrual period: 24-Nov-2020 Patient has homicidal thoughts: no Risk Screens Suicide Risk Screen In the Past Month: Have you wished you were or wished you could go to sleep and not wake up no In the Past Month: Have you had any actual thoughts of killing yourself no In Your Lifetime: Have you ever done anything, started to do anything, or prepared to do anything to end your life no Sanford Fall Scale Screening Has the patient fallen before (or is the patient in the ED as a result of a fall) has had a fall Does the patient have an impaired gait has impaired gait Is the patient cognitively impaired cognitively impaired Sanford Fall Scale History of falling (immediate or previous) no (0) Secondary Diagnosis no (0) Intravenous Therapy/ Heparin/Saline Lock no (0) Gait/Transferring normal/bedrest/wheelchair (0) Ambulatory Aids none/bedrest/nurse assist (0) Mental Status oriented to own ability (0) Sanford Fall Risk Score: 0 Interventions: Sanford Fall Interventions: LOW INTERVENTIONS: *patient oriented to surroundings and call system, * patient/family falls education completed and documented, *patients fall status communicated during bedside handoff, *whiteboard updated, *mode of toileting discussed with patient, *bed in low position with brakes locked, *call light in reach, * non-skid footwear PAST MEDICAL HISTORY Immunization History: Last Known Tetanus Immunization: Unknown TRAVEL HISTORY Travel History Coronavirus Screening: no exposure or symptoms Travel Exposure History: NO travel to International locations in the past 30 days PAIN Pain Scale Used: CARMENCITA Pain Rating (0-10): 5 = Moderate Past Medical History: Past Medical History Reviewedyes Electronic Signatures: Madyson Whitmore (JOLLY) (Signed 19-Dec-2020 04:34) Entered: Risk Screens, Pain, Arrival, ABCD, Immunizations, Travel History, Chart Review, Scores, Past Medical History Authored: Quick Triage, Risk Screens, Pain, Arrival, ABCD, Immunizations, Travel History, Chart Review, Scores, Past Medical History Last Updated: 19-Dec-2020 04:34 by Madyson Whitmore (JOLLY) Normal [facility] Urine Teston 12-19 HCG ( test) Ql (U) Negative Negative -[facility] Work Phone: MR Shoulder Arthrogramon MR Shoulder Arthrogram Normal -[facility] Work Phone: Radiologyon 11-13-2020 RF Shoulder Arthrogram Normal -[facility] Work Phone: Basic metabolic 1998 panelOr dered By: Ce Hastings on 10-27-2020 Anion gap [Moles/Vol] 10 mmol/L 10 - 20 mmol/L [facility] Chloride [Moles/Vol] 107 mmol/L 98 - 10 8 mmol/L [facility] Creatinine [Mass/Vol] 0.82 mg/dL 0.40 - 1.10 [facility] GFR/1.73 sq M.predicted CKD-EPI (S/P/Bld) [Vol rate/Area] 101 >=60 mL/min/1.73 m2 [facility] Glucose [Mass/Vol] 76 mg/dL 65 - 99 mg/dL [facility] HCO3 [Moles/Vol] 26 mmol/L 21 - 32 mmol/L [facility] Interpretation and review of laboratory results Abnormal [facility] Potassium [Moles/Vol] 3.4 mmol/L Low 3.5 - 5.1 mmol/L [facility] Sodium [Moles/Vol] 140 mmol/L 135 - 145 mmol/L [facility] Urea nitrogen [Mass/Vol] 8 mg/dL 8 - 25 mg/dL [facility] Urea nitrogen/Creatinine [Mass ratio] 9.8 mg/mg Low [facility] The eGFR should be u sed for monitoring renal function only and not for medication dosing. [facility] Beta HCG ( test) Ql Ordered By: Ce Hastings on 10-27-2020 Interpretation and review of laboratory results Normal [facility] Negative: The result is less than or equal to 5 mIU/mL of HCG. [facility] CBC WITH AUTO DIFFERENTIALOr dered By: Ce Hastings on 10-27-2020 Basophils (Bld) [#/Vol] 0.02 10*3/uL [facility] Basophils/100 WBC (Bld) 0.3 % [facility] Eosinophils (Bld) [#/Vol] 0.08 10*3/uL [facility] Eosinophils/100 WBC (Bld) 1.1 % [facility] Erythrocyte distribution width (RBC) [Entitic vol] 15.3 % High 11.6 - 14.8 % [facility] Hematocrit (Bld) [Volume fraction] 34.7 % Low 36.0 - 46.0 % [facility] Hemoglobin (Bld) [Mass/Vol] 10.7 g/dL Low 12.0 - 16.0 g/dL [facility] Immature granulocytes (Bld) [#/Vol] 0.01 10*3/uL [facility] Immature granulocytes/100 WBC (Bld) 0.10 % [facility] Comment on above: The IG parameter is the percentage of metamyelocytes, myelocytes and promyelocytes. An immature granulocyte count (IG) of 1% or more suggests the possibility of infection, an IG count of 3% is very likely related to an infection. Interpretation and review of laboratory results Abnormal [facility] Lymphocytes (Bld) [#/Vol] 3.78 10*3/uL [facility] Lymphocytes/100 WBC (Bld) 53.0 % [facility] MCH (RBC) [Entitic mass] 23.5 pg Low 26.0 - 34.0 pg [facility] MCHC (RBC) [Mass/Vol] 30.8 g/dL Low 31.0 - 37.0 g/dL [facility] MCV (RBC) [Entitic vol] 76.3 fL Low 80.0 - 100.0 fL [facility] Monocytes (Bld) [#/Vol] 0.42 10*3/uL [facility] Monocytes/100 WBC (Bld) 5.9 % [facility] Neutrophils (Bld) [#/Vol] 2.82 10*3/uL [facility] Neutrophils/100 WBC (Bld) 39.6 % [facility] Nucleated RBC (Bld) [#/Vol] 0.00 10*3/uL [facility] Nucleated RBC/100 WBC (Bld) [Ratio] 0.0 % [facility] Platelet mean volume (Bld) [Entitic vol] 9.7 fL 9.4 - 12.4 fL [facility] Platelets (Bld) [#/Vol] 362 10*3/uL [facility] RBC (Bld) [#/Vol] 4.55 10*6/uL [facility] eah WBC (Bld) [#/Vol] 7.13 10*3/uL [facility] CT Abdomen Pelvis With IV Co ntrast OnlyOrdered By: Ce Hastings on 10-27-2020 1. Pelvic free fluid within the posterior cul-de-sac and surrounding the right ovary is likely secondary to recent ovulation. There is no fluid collection or hematoma. No findings of active arterial extravasation. 2. No other acute abdominal or pelvic abnormality. 3. Normal appendix and no adenopathy. [employer] Workstation ID: [id number] [facility] EXAMINATION: CT ABDOMEN PELVIS WITH IV CONTRAST ONLY HISTORY: ORDERING SYSTEM PROVIDED HISTORY: LUQ abdominla pain, diarrhea, TECHNOLOGIST PROVIDED HISTORY: Illness/Other Reason for exam: upper abd pain, hx of cholecystectomy x2 months ago Encounter Type: Initial Additional signs and symptoms: n/a ORDERING SYSTEM PROVIDED DIAGNOSIS CODES: COMPARISON: CT abdomen and pelvis 09/22/2020. TECHNIQUE: Following the uneventful administration of 75 mL Isovue-370 IV contrast, helical imaging of the abdomen and pelvis was performed. Multiplanar reformats are submitted. Dose reduction techniques were achieved by using: automated exposure control and/or adjustment of mA and/or kV according to patient size and/or use of iterative reconstruction technique. FINDINGS: ABDOMEN: The imaged lung bases are clear. The liver, spleen, adrenals, kidneys, pancreas, gallbladder and biliary ducts are normal. There is no free fluid, fluid collection or adenopathy. No urinary tract calculi are present. The stomach, proximal small bowel and imaged portions of the colon are normal in course and caliber. The aorta and IVC are intact. Aortic caliber is normal and the IVC is adequately distended. There is no acute osseous abnormality. PELVIS: The distal ureters, urinary bladder, uterus, left ovary, rectosigmoid colon, distal small bowel loops and appendix are all normal. Pelvic free fluid is seen in the posterior cul-de-sac and partially surrounds the right ovary. No underlying ovarian mass is seen. Pelvic vasculature is patent. There is no pelvic adenopathy. No fluid collection or hematoma. No acute osseous abnormality. [facility], Rad In Fu ji Speechq - 10/27/2020 5:05 AM EDT EXAMINATION: CT ABDOMEN PELVIS WITH IV CONTRAST ONLY HISTORY: ORDERING SYSTEM PROVIDED HISTORY: LUQ abdominla pain, diarrhea, TECHNOLOGIST PROVIDED HISTORY: Illness/Other Reason for exam: upper abd pain, hx of cholecystectomy x2 months ago Encounter Type: Initial Additional signs and symptoms: n/a ORDERING SYSTEM PROVIDED DIAGNOSIS CODES: COMPARISON: CT abdomen and pelvis 09/22/2020. TECHNIQUE: Following the uneventful administration of 75 mL Isovue-370 IV contrast, helical imaging of the abdomen and pelvis was performed. Multiplanar reformats are submitted. Dose reduction techniques were achieved by using: automated exposure control and/or adjustment of mA and/or kV according to patient size and/or use of iterative reconstruction technique. FINDINGS: ABDOMEN: The imaged lung bases are clear. The liver, spleen, adrenals, kidneys, pancreas, gallbladder and biliary ducts are normal. There is no free fluid, fluid collection or adenopathy. No urinary tract calculi are present. The stomach, proximal small bowel and imaged portions of the colon are normal in course and caliber. The aorta and IVC are intact. Aortic caliber is normal and the IVC is adequately distended. There is no acute osseous abnormality. PELVIS: The distal ureters, urinary bladder, uterus, left ovary, rectosigmoid colon, distal small bowel loops and appendix are all normal. Pelvic free fluid is seen in the posterior cul-de-sac and partially surrounds the right ovary. No underlying ovarian mass is seen. Pelvic vasculature is patent. There is no pelvic adenopathy. No fluid collection or hematoma. No acute osseous abnormality. IMPRESSION: 1. Pelvic free fluid within the posterior cul-de-sac and surrounding the right ovary is likely secondary to recent ovulation. There is no fluid collection or hematoma. No findings of active arterial extravasation. 2. No other acute abdominal or pelvic abnormality. 3. Normal appendix and no adenopathy. VKR/Tailwind Workstation ID: [id number] [facility] ECG 12-LEADOrdered By: Ce Hastings on 10-27-2020 Ce Thornton MD 10/27/2020 5:33 AM EKG 12-lead Date/Time: 10/27/2020 4:33 AM Performed by: Ce Hastings MD Authorized by: Ce Hastings MD Interpreted by ED attending physician Comparison: not compared with previous ECG Rhythm: sinus rhythm and sinus bradycardia BPM: 58 Conduction: conduction normal ST Segments: ST segments normal QRS axis: normal T Waves: T waves normal normal ND interval normal QRS interval normal QT interval ND Interval: 134 QRS Interval: 88 QT Interval: 416 Other: no other findings Clinical impression: normal ECG and sinus bradycardia [facility] EKGOrdered By: Provider Syst em on 10-27-2020 Ordered by an unspec ified provider. [facility] HCG (QUALITATIVE)Ordered By: Ce Hastings on 10-27-2020 Beta HCG ( test) Ql Negative Negative [facility] Hepatic function 2000 panelO rdered By: Ce Hastings on 10-27-2020 Albumin [Mass/Vol] 4.3 g/dL 3.2 - 5.2 g/dL [facility] ALP [Catalytic activity/Vol] 109 U/L 40 - 140 U/L [facility] ALT [Catalytic activity/Vol] 30 U/L 14 - 65 U/L [facility] AST [Catalytic activity/Vol] 16 U/L 0 - 45 U/L [facility] Bilirubin [Mass/Vol] 0.2 mg/dL 0.0 - 1 .3 mg/dL [facility] Bilirubin.conjugated [Mass/Vol] mg/dL 0.0 - 0.4 mg/dL [facility] Interpretation and review of laboratory results Abnormal [facility] Protein [Mass/Vol] 8.1 g/dL High 6.0 - 8.0 g/dL [facility] LipaseOrdered By: Ce Hastings on 10-27-2020 Lipase [Catalytic activity/Vol] 98 U/L 73 - 393 U/L [facility] Lipase [Catalytic activity/V ol]Ordered By: Ce Hastings on 10-27-2020 Interpretation and review of laboratory results Normal [facility] No Panel InformationOrdered By: Ce Hastings on 10-27-2020 [facility] Radiologyon 10-27-2020 XR Shoulder 2 Views Normal [facility] Work Phone: URINALYSISOrdered By: Ce Hastings on 10-27-2020 Bacteria Auto Ql (U) None Seen None Se en /hpf [facility] Clarity Refractometry automated (U) Clear Clear [facility] Color (U) Colorless Colorless, Yellow [facility] Glucose Auto test strip (U) [Mass/Vol] Negative Negative mg/dL [facility] Ketones (U) [Mass/Vol] Negative Negative mg/dL [facility] Leukocyte esterase Auto test strip Ql (U) Trace Abnormal Negative [facility] pH (U) 6.0 [pH] [facility] Specific gravity (U) [Rel density] 1.006 [facility] UrinalysisOrdered By: Ce Hastings on 10-27-2020 Bilirubin Ql (U) Negative Negative [facility] th Epithelial cells.squamous Auto (Urine sed) [#/Area] 2 [facility] Hemoglobin Auto test strip Ql (U) Negative Negative [facility] Interpretation and review of laboratory results Abnormal [facility] Nitrite Auto test strip Ql (U) Negative Negative [facility] Protein (U) [Mass/Vol] Negative Negative mg/dL [facility] RBC Auto (Urine sed) [#/Area] 5 High [facility] Urobilinogen (U) [Mass/Vol] mg/dL <2.0 mg/dL [facility] Microscopic examinat ion is performed on all urinalysis samples and only positive findings are reported. The test for blood on the chemical analytic portion of urinalysis may also be positive due to hemoglobinuria and myoglobinuria and if red blood cells are present they are quantified by microscopic examination. [facility] CT Abdomen Pelvis With IV Co ntrast OnlyOrdered By: Briana Watson on 09-22-2020 1. Trace pelvic asci reji is likely physiologic in a patient this age. A ruptured ovarian cyst could potentially look similar. 2. Prior cholecystectomy. Normal appendix. SZD/c Workstation ID: [id number] [facility] EXAMINATION: CT ABDO MEN PELVIS WITH IV CONTRAST ONLY HISTORY: ORDERING SYSTEM PROVIDED HISTORY: Abdominal pain, acute, nonlocalized, TECHNOLOGIST PROVIDED HISTORY: Illness/Other Reason for exam: ABD PAIN Encounter Type: Unknown Additional signs and symptoms: UNKNOWN ORDERING SYSTEM PROVIDED DIAGNOSIS CODES: COMPARISON: CT abdomen and pelvis 07/21/2020. TECHNIQUE: CT examination of the abdomen and pelvis following the administration of intravenous contrast. Coronal and sagittal reformations were performed. Dose reduction techniques were achieved by using automated exposure control and/or adjustment of mA and/or kV according to patient size and/or use of iterative reconstruction technique. CONTRAST: Iopamidol 76% intravenous solution - 75 mL. FINDINGS: Lung bases are clear. Solid upper abdominal organs are normal. No adrenal mass or adenopathy. No obstructive uropathy. Gallbladder is absent. Portal vein is patent. Pancreatic duct and biliary ducts are normal caliber. Aorta is normal caliber. No bowel obstruction or inflammation. Normal appendix. No pneumatosis or pneumoperitoneum. No pelvic adenopathy. There is trace pelvic ascites in the cul-de-sac. Bladder is normal. Uterus is normal size. No suspicious lytic or sclerotic osseous lesions. Bony structures are normal. [facility] Interface, Rad In Fu ji Speechq - 09/22/2020 3:47 AM EDT EXAMINATION: CT ABDOMEN PELVIS WITH IV CONTRAST ONLY HISTORY: ORDERING SYSTEM PROVIDED HISTORY: Abdominal pain, acute, nonlocalized, TECHNOLOGIST PROVIDED HISTORY: Illness/Other Reason for exam: ABD PAIN Encounter Type: Unknown Additional signs and symptoms: UNKNOWN ORDERING SYSTEM PROVIDED DIAGNOSIS CODES: COMPARISON: CT abdomen and pelvis 07/21/2020. TECHNIQUE: CT examination of the abdomen and pelvis following the administration of intravenous contrast. Coronal and sagittal reformations were performed. Dose reduction techniques were achieved by using automated exposure control and/or adjustment of mA and/or kV according to patient size and/or use of iterative reconstruction technique. CONTRAST: Iopamidol 76% intravenous solution - 75 mL. FINDINGS: Lung bases are clear. Solid upper abdominal organs are normal. No adrenal mass or adenopathy. No obstructive uropathy. Gallbladder is absent. Portal vein is patent. Pancreatic duct and biliary ducts are normal caliber. Aorta is normal caliber. No bowel obstruction or inflammation. Normal appendix. No pneumatosis or pneumoperitoneum. No pelvic adenopathy. There is trace pelvic ascites in the cul-de-sac. Bladder is normal. Uterus is normal size. No suspicious lytic or sclerotic osseous lesions. Bony structures are normal. IMPRESSION: 1. Trace pelvic ascites is likely physiologic in a patient this age. A ruptured ovarian cyst could potentially look similar. 2. Prior cholecystectomy. Normal appendix. SZD/rlc Workstation ID: [id number] [facility] Basic metabolic 2000 panelOr dered By: Briana Watson on 09-21-2020 Anion gap [Moles/Vol] 9 mmol/L Low 10 - 20 mmol/L [facility] Calcium [Mass/Vol] 9.0 mg/dL 8.4 - 10. 2 mg/dL [facility] Chloride [Moles/Vol] 108 mmol/L 98 - 10 8 mmol/L [facility] Creatinine [Mass/Vol] 0.92 mg/dL 0.40 - 1.10 [facility] GFR/1.73 sq M.predicted CKD-EPI (S/P/Bld) [Vol rate/Area] 88 >=60 mL/min/1.73 m2 [facility] Glucose [Mass/Vol] 73 mg/dL 65 - 99 mg/dL [facility] HCO3 [Moles/Vol] 27 mmol/L 21 - 32 mmol/L [facility] Interpretation and review of laboratory results Abnormal [facility] Potassium [Moles/Vol] 3.5 mmol/L 3.5 - 5.1 mmol/L [facility] Sodium [Moles/Vol] 140 mmol/L 135 - 145 mmol/L [facility] Urea nitrogen [Mass/Vol] 11 mg/dL 8 - 25 mg/dL [facility] Urea nitrogen/Creatinine [Mass ratio] 12.0 mg/mg [facility] The eGFR should be u sed for monitoring renal function only and not for medication dosing. [facility] Beta HCG ( test) Ql Ordered By: Briana Watson on 09-21-2020 Negative: The result is less than or equal to 5 mIU/mL of HCG. [facility] CBC WITH AUTO DIFFERENTIALOr dered By: Briana Watson on 09-21-2020 Basophils (Bld) [#/Vol] 0.02 10*3/uL [facility] Basophils/100 WBC (Bld) 0.3 % [facility] Eosinophils (Bld) [#/Vol] 0.10 10*3/uL [facility] Eosinophils/100 WBC (Bld) 1.5 % [facility] Erythrocyte distribution width (RBC) [Entitic vol] 14.6 % 11.6 - 14.8 % [facility] Hematocrit (Bld) [Volume fraction] 33.4 % Low 36.0 - 46.0 % [facility] Hemoglobin (Bld) [Mass/Vol] 9.9 g/dL Low 12.0 - 16.0 g/dL [facility] Immature granulocytes (Bld) [#/Vol] 0.02 10*3/uL [facility] Immature granulocytes/100 WBC (Bld) 0.30 % [facility] Comment on above: The IG parameter is the percentage of metamyelocytes, myelocytes and promyelocytes. An immature granulocyte count (IG) of 1% or more suggests the possibility of infection, an IG count of 3% is very likely related to an infection. Interpretation and review of laboratory results Abnormal [facility] Lymphocytes (Bld) [#/Vol] 3.05 10*3/uL [facility] Lymphocytes/100 WBC (Bld) 45.5 % [facility] MCH (RBC) [Entitic mass] 23.1 pg Low 26.0 - 34.0 pg [facility] MCHC (RBC) [Mass/Vol] 29.6 g/dL Low 31.0 - 37.0 g/dL [facility] MCV (RBC) [Entitic vol] 78.0 fL Low 80.0 - 100.0 fL [facility] Monocytes (Bld) [#/Vol] 0.39 10*3/uL [facility] Monocytes/100 WBC (Bld) 5.8 % [facility] Neutrophils (Bld) [#/Vol] 3.12 10*3/uL [facility] Neutrophils/100 WBC (Bld) 46.6 % [facility] Nucleated RBC (Bld) [#/Vol] 0.00 10*3/uL [facility] Nucleated RBC/100 WBC (Bld) [Ratio] 0.0 % [facility] Platelet mean volume (Bld) [Entitic vol] 10.4 fL 9.4 - 12.4 fL [facility] Platelets (Bld) [#/Vol] 328 10*3/uL [facility] RBC (Bld) [#/Vol] 4.28 10*6/uL [facility] WBC (Bld) [#/Vol] 6.70 10*3/uL [facility] D-DIMER, QUANTITATIVEOrdered By: Briana Watson on 09-21-2020 Fibrin D-dimer FEU (PPP) [Mass/Vol] 0.48 0.27 - 0.49 mcg/mL FEU [facility] Interpretation and review of laboratory results Normal [facility] A D-dimer concentrat ion of <0.5 micrograms per milliliter FEU is considered a low probability for pulmonary embolus (PE) and deep venous thrombosis (DVT). Results of this test should always be interpreted in conjunction with the patient's medical history,clinical presentation, and other findings. Clinical diagnosis should not be based on the results of the D-dimer alone. [facility] HCG (QUALITATIVE)Ordered By: Briana Watson on 09-21-2020 Beta HCG ( test) Ql Negative Negative [facility] Hepatic function 2000 panelO rdered By: Briana Watson on 09-21-2020 Albumin [Mass/Vol] 4.0 g/dL 3.2 - 5.2 g/dL [facility] ALP [Catalytic activity/Vol] 98 U/L 40 - 140 U/L [facility] ALT [Catalytic activity/Vol] 23 U/L 14 - 65 U/L [facility] AST [Catalytic activity/Vol] 21 U/L 0 - 45 U/L [facility] Bilirubin [Mass/Vol] 0.2 mg/dL 0.0 - 1 .3 mg/dL [facility] Bilirubin.conjugated [Mass/Vol] mg/dL 0.0 - 0.4 mg/dL [facility] Protein [Mass/Vol] 7.8 g/dL 6.0 - 8.0 g/dL [facility] LipaseOrdered By: Briana Watson on 09-21-2020 Lipase [Catalytic activity/Vol] 162 U/L 73 - 393 U/L [facility] No Panel InformationOrdered By: Briana Watson on 09-21-2020 Interpretation and review of laboratory results Normal [facility] URINALYSISOrdered By: Briana Lai all on 09-21-2020 Bacteria Auto Ql (U) Rare Abnormal None Se en /hpf [facility] Clarity Refractometry automated (U) Cloudy Abnormal Clear [facility] Color (U) Light Red Abnormal Colorless, Yellow [facility] Glucose Auto test strip (U) [Mass/Vol] Negative Negative mg/dL [facility] Ketones (U) [Mass/Vol] Negative Negative mg/dL [facility] Leukocyte esterase Auto test strip Ql (U) Small Abnormal Negative [facility] pH (U) 6.5 [pH] [facility] Specific gravity (U) [Rel density] 1.015 [facility] UrinalysisOrdered By: Briana aguilar on 09-21-2020 Bilirubin Ql (U) Negative Negative [facility] th Epithelial cells.squamous Auto (Urine sed) [#/Area] 1 [facility] Hemoglobin Auto test strip Ql (U) Large Abnormal Negative [facility] Interpretation and review of laboratory results Abnormal [facility] Nitrite Auto test strip Ql (U) Negative Negative [facility] Protein (U) [Mass/Vol] Negative Negative mg/dL [facility] RBC Auto (Urine sed) [#/Area] >180 High [facility] Urobilinogen (U) [Mass/Vol] mg/dL <2.0 mg/dL [facility] WBC Auto (Urine sed) [#/Area] 12 High [facility] Microscopic examinat ion is performed on all urinalysis samples and only positive findings are reported. The test for blood on the chemical analytic portion of urinalysis may also be positive due to hemoglobinuria and myoglobinuria and if red blood cells are present they are quantified by microscopic examination. [facility] XR Chest 1 ViewOrdered By: Princess Watson on 09-21-2020 No acute findings. D ND/rlc Workstation ID: [id number] [facility] EXAMINATION: XR CHES T PA/AP 09/21/2020 10:22 pm HISTORY: ORDERING SYSTEM PROVIDED HISTORY: pain, TECHNOLOGIST PROVIDED HISTORY: Illness/Other Reason for exam: CHEST PAIN Cancer History: Surgery, RadiationHistory: Encounter Type: Initial Additional signs and symptoms: N ORDERING SYSTEM PROVIDED DIAGNOSIS CODES: FINDINGS: A single AP upright view of the chest demonstrates the lungs to be clear of consolidations and no effusions are identified. Heart size is within normal limits, and the osseous structures appear intact with evidence of prior surgery involving the right scapular glenoid. [facility] Interface, Rad In Fu ji Speechq - 09/21/2020 10:54 PM EDT EXAMINATION: XR CHEST PA/AP 09/21/2020 10:22 pm HISTORY: ORDERING SYSTEM PROVIDED HISTORY: pain, TECHNOLOGIST PROVIDED HISTORY: Illness/Other Reason for exam: CHEST PAIN Cancer History: Surgery, RadiationHistory: Encounter Type: Initial Additional signs and symptoms: N ORDERING SYSTEM PROVIDED DIAGNOSIS CODES: FINDINGS: A single AP upright view of the chest demonstrates the lungs to be clear of consolidations and no effusions are identified. Heart size is within normal limits, and the osseous structures appear intact with evidence of prior surgery involving the right scapular glenoid. IMPRESSION: No acute findings. DPR/rlc Workstation ID: [id number] [facility] POC , Urineon 08-20 HCG ( test) Ql (U) Negative Negative [facility] Interpretation and review of laboratory results Normal [facility] CBC Auto Differentialon 07-28 Anisocytosis Ql (Bld) 1+ [employer] Phone: Atypical Lymphocytes Relative 1 % [facility] Phone: Basophils (Bld) [#/Vol] 0.1 10*3/uL 0.0 - 0.2 K/uL [facility] Phone: Basophils/100 WBC (Bld) 1.0 % [facility] Phone: [phone] Eosinophils (Bld) [#/Vol] 0.0 10*3/uL 0.0 - 0.7 K/uL [facility] Phone: Eosinophils/100 WBC (Bld) 1.1 % [facility] Phone: Erythrocyte distribution width (RBC) [Ratio] 17.0 % High 11.5 - 14.5 % [facility] Phone: Hematocrit (Bld) [Volume fraction] 34.0 % Low 37.0 - 47.0 % [facility] Phone: Hemoglobin (Bld) [Mass/Vol] 10.8 g/dL Low 12.0 - 16.0 g/dL [facility] Phone: Interpretation and review of laboratory results Abnormal [facility] Phone: Lymphocytes (Bld) [#/Vol] 3.4 10*3/uL 1.0 - 4.8 K/uL [facility] Phone: Lymphocytes/100 WBC (Bld) 53.0 % [facility] Phone: MCH (RBC) [Entitic mass] 23.7 pg Low 27.0 - 31.3 pg [facility] Phone: MCHC (RBC) [Mass/Vol] 31.8 % Low 33.0 - 37.0 % [facility] Phone: MCV (RBC) [Entitic vol] 74.4 fL Low 82.0 - 100.0 fL [facility] Phone: Microcytes 2+ [facility] Phone: Monocytes (Bld) [#/Vol] 0.3 10*3/uL 0.2 - 0.8 K/uL [facility] Phone: Monocytes/100 WBC (Bld) 4.6 % [facility] Phone: Neutrophils Absolute 2.6 K/uL 1.4 - 6 .5 K/uL [facility] Phone: Neutrophils/100 WBC (Bld) 41.0 % [facility] Phone: Ovalocytes 1+ [facility] Phone: PLATELET SLIDE REVIEW Normal [facility] Phone: Platelets (Bld) [#/Vol] 335 10*3/uL 130 - 400 K/uL [facility] Phone: Poikilocytes 1+ [facility] Phone: [phone] RBC (Bld) [#/Vol] 4.56 10*6/uL [facility] Phone: WBC (Bld) [#/Vol] 6.3 10*3/uL 4.8 - 10.8 K/uL [facility] Phone: Comprehensive Metabolic Pane claudia 03-24-2021 Albumin [Mass/Vol] 4.5 g/dL 3.5 - 4.6 g/dL [facility] Phone: ALP [Catalytic activity/Vol] 159 U/L High 40 - 130 U/L [facility] Phone: ALT [Catalytic activity/Vol] 14 U/L 0 - 33 U/L [facility] Phone: Anion gap [Moles/Vol] 12 mmol/L [facility] Phone: AST [Catalytic activity/Vol] 24 U/L 0 - 35 U/L [facility] Phone: Bilirubin Ql (U) 0.3 mg/dL 0.2 - 0.7 mg/dL [facility] Phone: Calcium [Mass/Vol] 9.5 mg/dL 8.5 - 9.9 mg/dL [facility] Phone: Chloride [Moles/Vol] 102 mmol/L [employer] Phone: CO2 [Moles/Vol] 27 mmol/L [facility] Phone: Creatinine [Mass/Vol] 1.02 mg/dL High 0.50 - 0.90 mg/dL [facility] Phone: GFR >60.0 >60 [employer] Phone: Comment on above: >60 mL/min/1.73m2 EG FR, calc. for ages 18 and older using the MDRD formula (not corrected for weight), is valid for stable renal function. GFR Non- >60.0 >60 [facility] Phone: Comment on above: >60 mL/min/1.73m2 EG FR, calc. for ages 18 and older using the MDRD formula (not corrected for weight), is valid for stable renal function. Globulin (S) [Mass/Vol] 2.9 g/dL 2.3 - 3.5 g/dL [facility] Phone: Glucose [Mass/Vol] 75 mg/dL 70 - 99 mg/dL [facility] Phone: Interpretation and review of laboratory results Abnormal [facility] Phone: Potassium [Moles/Vol] 3.9 mmol/L [facility] Phone: Protein [Mass/Vol] 7.4 g/dL 6.3 - 8.0 g/dL [facility] Phone: Sodium [Moles/Vol] 141 mmol/L [facility] Phone: Urea nitrogen [Mass/Vol] 14 mg/dL 6 - 20 mg/dL [facility] Phone: Lipaseon 08-19-2020 Lipase [Catalytic activity/Vol] 58 U/L 12 - 95 U/L [facility] Phone: CBC WITH AUTO DIFFERENTIALon 08-02-2020 Basophils/100 WBC (Bld) 0.2 % [facility] Eosinophils (Bld) [#/Vol] 0.01 10*3/uL [facility] Eosinophils/100 WBC (Bld) 0.1 % [facility] Erythrocyte distribution width (RBC) [Entitic vol] 15.0 % High 11.6 - 14.8 % [facility] Hematocrit (Bld) [Volume fraction] 29.6 % Low 36.0 - 46.0 % [facility] Hemoglobin (Bld) [Mass/Vol] 8.6 g/dL Low 12.0 - 16.0 g/dL [facility] Immature granulocytes (Bld) [#/Vol] 0.02 10*3/uL [facility] Immature granulocytes/100 WBC (Bld) 0.20 % [facility] Comment on above: The IG parameter is the percentage of metamyelocytes, myelocytes and promyelocytes. An immature granulocyte count (IG) of 1% or more suggests the possibility of infection, an IG count of 3% is very likely related to an infection. Lymphocytes (Bld) [#/Vol] 1.51 10*3/uL [facility] Lymphocytes/100 WBC (Bld) 17.7 % [facility] MCH (RBC) [Entitic mass] 23.4 pg Low 26.0 - 34.0 pg [facility] MCHC (RBC) [Mass/Vol] 29.1 g/dL Low 31.0 - 37.0 g/dL [facility] MCV (RBC) [Entitic vol] 80.4 fL 80.0 - 100.0 fL [facility] Monocytes (Bld) [#/Vol] 0.40 10*3/uL [facility] Monocytes/100 WBC (Bld) 4.7 % [facility] Neutrophils (Bld) [#/Vol] 6.55 10*3/uL [facility] Neutrophils/100 WBC (Bld) 77.1 % [facility] Platelet mean volume (Bld) [Entitic vol] 9.7 fL 9.4 - 12.4 fL [facility] Platelets (Bld) [#/Vol] 299 10*3/uL [facility] RBC (Bld) [#/Vol] 3.68 10*6/uL Low [facility] ealth WBC (Bld) [#/Vol] 8.51 10*3/uL [facility] Calcium, Ionizedon Calcium.ionized [Mass/Vol] 4.8 mg/dL 4.5 - 5.3 mg/dL [facility] Interpretation and review of laboratory results Normal [facility] Comprehensive Metabolic Pane claudia 08-02-2020 Albumin [Mass/Vol] 3.3 g/dL 3.2 - 5.2 g/dL [facility] ALP [Catalytic activity/Vol] 317 U/L High 40 - 140 U/L [facility] ALT [Catalytic activity/Vol] 38 U/L 14 - 65 U/L [facility] Anion gap [Moles/Vol] 6 mmol/L Low 10 - 20 mmol/L [facility] AST [Catalytic activity/Vol] 45 U/L 0 - 45 U/L [facility] Bilirubin [Mass/Vol] 0.3 mg/dL 0.0 - 1 .3 mg/dL [facility] Calcium [Mass/Vol] 8.4 mg/dL 8.4 - 10. 2 mg/dL [facility] Chloride [Moles/Vol] 112 mmol/L High 98 - 10 8 mmol/L [facility] Creatinine [Mass/Vol] 0.96 mg/dL 0.40 - 1.10 [facility] GFR/1.73 sq M predicted among non-blacks MDRD (S/P/Bld) [Vol rate/Area] The eGFR should be used for monitoring renal function only and not for medication dosing. [facility] GFR/1.73 sq M.predicted CKD-EPI (S/P/Bld) [Vol rate/Area] 84 >=60 mL/min/1.73 m2 [facility] Glucose [Mass/Vol] 120 mg/dL High 65 - 99 mg/dL [facility] HCO3 [Moles/Vol] 26 mmol/L 21 - 32 mmol/L [facility] Potassium [Moles/Vol] 3.7 mmol/L 3.5 - 5.1 mmol/L [facility] Protein [Mass/Vol] 6.7 g/dL 6.0 - 8.0 g/dL [facility] Sodium [Moles/Vol] 140 mmol/L 135 - 145 mmol/L [facility] Urea nitrogen [Mass/Vol] 12 mg/dL 8 - 25 mg/dL [facility] Urea nitrogen/Creatinine [Mass ratio] 12.5 mg/mg [facility] Hepatic Function Panelon Albumin [Mass/Vol] 3.3 g/dL 3.2 - 5.2 g/dL [facility] ALP [Catalytic activity/Vol] 309 U/L High 40 - 140 U/L [facility] ALT [Catalytic activity/Vol] 39 U/L 14 - 65 U/L [facility] AST [Catalytic activity/Vol] 46 U/L High 0 - 45 U/L [facility] Bilirubin [Mass/Vol] 0.3 mg/dL 0.0 - 1 .3 mg/dL [facility] Bilirubin.conjugated [Mass/Vol] 0.1 mg/dL 0.0 - 0.4 mg/dL [facility] Interpretation and review of laboratory results Abnormal [facility] Protein [Mass/Vol] 6.7 g/dL 6.0 - 8.0 g/dL [facility] Magnesiumon 08-02-2020 Magnesium [Mass/Vol] 2.0 mg/dL 1.6 - 2 .4 mg/dL [facility] Otheron 08-02-2020 Interpretation and review of laboratory results Normal [facility] Interpretation and review of laboratory results Abnormal [facility] POC Glucoseon 08-02-2020 Glucose [Mass/Vol] 97 mg/dL 65 - 99 mg/dL [facility] Interpretation and review of laboratory results Normal [facility] PT/INRon 08-02-2020 INR Coag (PPP) [Relative time] 1.1 {INR} [facility] Interpretation and review of laboratory results Normal [facility] PT Coag (PPP) [Time] 14.2 s [facility] During the induction phase of oral anticoagulation, the INR may not reflect the anticoagulation status of the patient. Therapeutic ranges for INR's are: Most clinical situations: INR 2.0-3.0 Mechanical Prosthetic Valve: INR 2.5-3.5 Critical: INR >5.0 [facility] Phosphoruson 08-02-2020 Phosphate [Mass/Vol] 3.9 mg/dL 2.7 - 4 .5 mg/dL [facility] Type and Screenon 08-02-2020 ABO and Rh group Nom (Bld) O Positive [facility] Blood group antibody screen Ql Negative [facility] Specimen Expires 08/05/2020 23:59 EST [facility] BMPon 08-01-2020 Anion gap [Moles/Vol] 11 mmol/L 10 - 20 mmol/L [facility] Calcium [Mass/Vol] 8.9 mg/dL 8.4 - 10. 2 mg/dL [facility] Chloride [Moles/Vol] 107 mmol/L 98 - 10 8 mmol/L [facility] Creatinine [Mass/Vol] 1.07 mg/dL 0.40 - 1.10 [facility] GFR/1.73 sq M predicted among non-blacks MDRD (S/P/Bld) [Vol rate/Area] The eGFR should be used for monitoring renal function only and not for medication dosing. [facility] GFR/1.73 sq M.predicted CKD-EPI (S/P/Bld) [Vol rate/Area] 73 >=60 mL/min/1.73 m2 [facility] Glucose [Mass/Vol] 89 mg/dL 65 - 99 mg/dL [facility] HCO3 [Moles/Vol] 26 mmol/L 21 - 32 mmol/L [facility] Potassium [Moles/Vol] 3.8 mmol/L 3.5 - 5.1 mmol/L [facility] Comment on above: moderate hemolysis, result may be falsely increased. Sodium [Moles/Vol] 140 mmol/L 135 - 145 mmol/L [facility] Urea nitrogen [Mass/Vol] 13 mg/dL 8 - 25 mg/dL [facility] Urea nitrogen/Creatinine [Mass ratio] 12.1 mg/mg [facility] CBC WITH AUTO DIFFERENTIALon 08-01-2020 Basophils/100 WBC (Bld) 0.3 % [facility] Eosinophils (Bld) [#/Vol] 0.05 10*3/uL [facility] Eosinophils/100 WBC (Bld) 0.7 % [facility] Erythrocyte distribution width (RBC) [Entitic vol] 15.3 % High 11.6 - 14.8 % [facility] Hematocrit (Bld) [Volume fraction] 32.3 % Low 36.0 - 46.0 % [facility] Hemoglobin (Bld) [Mass/Vol] 9.8 g/dL Low 12.0 - 16.0 g/dL [facility] Immature granulocytes (Bld) [#/Vol] 0.01 10*3/uL [facility] Immature granulocytes/100 WBC (Bld) 0.10 % [facility] Comment on above: The IG parameter is the percentage of metamyelocytes, myelocytes and promyelocytes. An immature granulocyte count (IG) of 1% or more suggests the possibility of infection, an IG count of 3% is very likely related to an infection. Interpretation and review of laboratory results Abnormal [facility] Lymphocytes (Bld) [#/Vol] 1.75 10*3/uL [facility] Lymphocytes/100 WBC (Bld) 25.2 % [facility] MCH (RBC) [Entitic mass] 23.8 pg Low 26.0 - 34.0 pg [facility] MCHC (RBC) [Mass/Vol] 30.3 g/dL Low 31.0 - 37.0 g/dL [facility] MCV (RBC) [Entitic vol] 78.4 fL Low 80.0 - 100.0 fL [facility] Monocytes (Bld) [#/Vol] 0.38 10*3/uL [facility] Monocytes/100 WBC (Bld) 5.5 % [facility] Neutrophils (Bld) [#/Vol] 4.74 10*3/uL [facility] Neutrophils/100 WBC (Bld) 68.2 % [facility] Platelet mean volume (Bld) [Entitic vol] 9.8 fL 9.4 - 12.4 fL [facility] Platelets (Bld) [#/Vol] 367 10*3/uL [facility] RBC (Bld) [#/Vol] 4.12 10*6/uL [facility] eah WBC (Bld) [#/Vol] 6.95 10*3/uL [facility] ealth HCG (QUALITATIVE)on 08-02-19 21 Beta HCG ( test) Ql Negative Negative [facility] Negative: The result is less than or equal to 5 mIU/mL of HCG. [facility] Hematologyon 08-01-2020 Basophils (Bld) [#/Vol] 0.02 10*3/uL [facility] Nucleated RBC (Bld) [#/Vol] 0.00 10*3/uL [facility] Hepatic Function Panel (LFT) on 08-01-2020 Albumin [Mass/Vol] 3.9 g/dL 3.2 - 5.2 g/dL [facility] ALP [Catalytic activity/Vol] 290 U/L High 40 - 140 U/L [facility] ALT [Catalytic activity/Vol] 30 U/L 14 - 65 U/L [facility] AST [Catalytic activity/Vol] 30 U/L 0 - 45 U/L [facility] Comment on above: moderate hemolysis, result may be falsely increased. Bilirubin [Mass/Vol] 0.4 mg/dL 0.0 - 1 .3 mg/dL [facility] Bilirubin.conjugated [Mass/Vol] 0.2 mg/dL 0.0 - 0.4 mg/dL [facility] Interpretation and review of laboratory results Abnormal [facility] Protein [Mass/Vol] 8.0 g/dL 6.0 - 8.0 g/dL [facility] Lipaseon 08-01-2020 Interpretation and review of laboratory results Abnormal [facility] Lipase [Catalytic activity/Vol] 3000 U/L Critically high 73 - 393 U/L [facility] Otheron 08-01-2020 Extra Tube Hold for add-ons. [facility] Comment on above: Auto resulted. Nucleated RBC/100 WBC (Bld) [Ratio] 0.0 % [facility] Interpretation and review of laboratory results Normal [facility] URINALYSISon 08-01-2020 Bacteria Auto Ql (U) Rare Abnormal None Se en /hpf [facility] Bilirubin Ql (U) Negative Negative [facility] Clarity Refractometry automated (U) Cloudy Abnormal Clear [facility] Color (U) Yellow Colorless, Yellow [facility] Epithelial cells.squamous Auto (Urine sed) [#/Area] 7 High [facility] Glucose Auto test strip (U) [Mass/Vol] Negative Negative mg/dL [facility] Hemoglobin Auto test strip Ql (U) Negative Negative [facility] Interpretation and review of laboratory results Abnormal [facility] Ketones (U) [Mass/Vol] Negative Negative mg/dL [facility] Leukocyte esterase Auto test strip Ql (U) Large Abnormal Negative [facility] Mucus Auto (Urine sed) [#/Area] Rare None Seen, Rare /lpf [facility] Nitrite Auto test strip Ql (U) Negative Negative [facility] pH (U) 6.5 [pH] [facility] Protein (U) [Mass/Vol] Negative Negative mg/dL [facility] Specific gravity (U) [Rel density] 1.025 [facility] Urobilinogen (U) [Mass/Vol] <2.0 <2.0 mg/dL [facility] WBC Auto (Urine sed) [#/Area] 43 High [facility] Microscopic examinat ion is performed on all urinalysis samples and only positive findings are reported. The test for blood on the chemical analytic portion of urinalysis may also be positive due to hemoglobinuria and myoglobinuria and if red blood cells are present they are quantified by microscopic examination. [facility] CT ABDOMEN PELVIS WITHOUT CO NTRASTon 07-21-2020 CT ABDOMEN PELVIS WITHOUT CONTRAST EXAMINATION: CT ABDOMEN PELVIS WITHOUT CONTRAST HISTORY: ORDERING SYSTEM PROVIDED HISTORY: Epigastric pain, elevated amylase, evaluate for pancreatitis, TECHNOLOGIST PROVIDED HISTORY: Illness/Other Reason for exam: Presents to the ED c/o abdominal pain (points to epigastric area). Rates pain 2/10 and burning. Encounter Type: Initial Additional signs and symptoms: n ORDERING SYSTEM PROVIDED DIAGNOSIS CODES: COMPARISON: None. TECHNIQUE: CT examination of the abdomen and pelvis without IV contrast. Coronal and sagittal reformations were performed. Dose reduction techniques were achieved by using automated exposure control and/or adjustment of mA and/or kV according to patient size and/or use of iterative reconstruction technique. FINDINGS: Lung bases are clear. Solid upper abdominal organs demonstrate no acute abnormalities on this limited noncontrast study. No adrenal mass or adenopathy. No evidence of nephrolithiasis or obstructive uropathy. The gallbladder is decompressed and does contain stones. There is no imaging evidence of biliary or pancreatic ductal dilatation. Aorta is normal caliber. No bowel obstruction or inflammation. No pneumatosis or pneumoperitoneum. Normal appendix. No pelvic adenopathy or ascites. Uterus is grossly normal size for age, not assessed in detail on this modality. Bladder is completely decompressed. No suspicious lytic or sclerotic osseous lesions. IMPRESSION: 1. Cholelithiasis. 2. No acute abnormality. SZD/tde Workstation ID: [id number] Dictated by: JENNIFER RODRIGES on MonJul 21, 2020 11:37:04 AM EST Transcribed by: CHAVEZ DE ANDA on MonJul 21, 2020 12:04:46 PM EST Finalized by: JENNIFER RODRIGES on MonJul 21, 2020 4:13:19 PM EST Normal [facility] Comment on above: Order Comment: Injur y/Trauma or Illness?:Illness/Other How long have you had these symptoms (acute/chronic)?:Acute Reason for exam?:Presents to the ED c/o abdominal pain (points to epigastric area). Rates pain 2/10 and burning. Type of Exam?:Initial Additional signs and symptoms?:n Lipaseon 07-21-2020 Interpretation and review of laboratory results Abnormal [facility] Lipase [Catalytic activity/Vol] 8098 U/L Critically high 73 - 393 U/L [facility] Otheron 07-21-2020 Interpretation and review of laboratory results Abnormal [facility] POC Basic Metabolic Panelon 07-21-2020 Calcium.ionized (Bld) [Mass/Vol] 4.9 mg/dL 4.5 - 5.3 mg/dL [facility] Chloride [Moles/Vol] 105 mmol/L 98 - 10 8 mmol/L [facility] CO2 [Moles/Vol] 27 mmol/L 21 - 32 mmol/L [facility] Creatinine [Mass/Vol] 0.74 mg/dL 0.40 - 1.10 [facility] GFR/1.73 sq M.predicted MDRD (S/P/Bld) [Vol rate/Area] 115 mL/min/{1.73_m2} >=60 mL/min/1.73 m2 [facility] Glucose [Mass/Vol] 101 mg/dL High 65 - 99 mg/dL [facility] Interpretation and review of laboratory results Abnormal [facility] Potassium [Moles/Vol] 3.7 mmol/L 3.5 - 5.1 mmol/L [facility] Sodium [Moles/Vol] 140 mmol/L 135 - 145 mmol/L [facility] Urea nitrogen [Mass/Vol] 10 mg/dL 8 - 25 mg/dL [facility] POC CBC and Differentialon 0 07-21-2020 Basophils (Bld) [#/Vol] 0.03 10*3/uL [facility] Basophils/100 WBC (Bld) 0.3 % [facility] Eosinophils (Bld) [#/Vol] 0.12 10*3/uL [facility] Eosinophils/100 WBC (Bld) 1.3 % [facility] Erythrocyte distribution width (RBC) [Entitic vol] 14.4 % 11.6 - 14.8 % [facility] Hematocrit (Bld) [Volume fraction] 30.4 % Low 36.0 - 46.0 % [facility] Hemoglobin (Bld) [Mass/Vol] 9.1 g/dL Low 12.0 - 16.0 g/dL [facility] Immature granulocytes (Bld) [#/Vol] 0.01 10*3/uL [facility] Immature granulocytes/100 WBC (Bld) 0.10 % [facility] Comment on above: The IG parameter is the percentage of metamyelocytes, myelocytes and promyelocytes. An immature granulocyte count (IG) of 1% or more suggests the possibility of infection, an IG count of 3% is very likely related to an infection. Lymphocytes (Bld) [#/Vol] 2.06 10*3/uL [facility] Lymphocytes/100 WBC (Bld) 23.2 % [facility] MCH (RBC) [Entitic mass] 23.9 pg Low 26.0 - 34.0 pg [facility] MCHC (RBC) [Mass/Vol] 29.9 g/dL Low 31.0 - 37.0 g/dL [facility] MCV (RBC) [Entitic vol] 80.0 fL 80.0 - 100.0 fL [facility] Monocytes (Bld) [#/Vol] 0.54 10*3/uL [facility] Monocytes/100 WBC (Bld) 6.1 % [facility] Neutrophils (Bld) [#/Vol] 6.13 10*3/uL [facility] Neutrophils/100 WBC (Bld) 69.0 % [facility] Platelet mean volume (Bld) [Entitic vol] 8.9 fL Low 9.4 - 12.4 fL [facility] Platelets (Bld) [#/Vol] 551 10*3/uL High [facility] RBC (Bld) [#/Vol] 3.80 10*6/uL Low [facility] WBC (Bld) [#/Vol] 8.89 10*3/uL [facility] POC Liver Panel Pluson 07-21 Albumin [Mass/Vol] 3.3 g/dL 3.2 - 5.2 g/dL [facility] ALP [Catalytic activity/Vol] 326 U/L High 40 - 140 U/L [facility] ALT [Catalytic activity/Vol] 41 U/L High 0 - 40 U/L [facility] Amylase [Catalytic activity/Vol] 577 U/L Critically high 25 - 115 U/L [facility] AST [Catalytic activity/Vol] 89 U/L High 0 - 45 U/L [facility] Bilirubin [Mass/Vol] 0.6 mg/dL 0.0 - 1 .3 mg/dL [facility] Gamma glutamyl transferase [Catalytic activity/Vol] 199 U/L High 7 - 33 U/L [facility] Interpretation and review of laboratory results Abnormal [facility] Protein [Mass/Vol] 7.5 g/dL 6.0 - 8.0 g/dL [facility] Critical result acte d upon time of test. Test performed at bedside. [facility] POC Urinalysis Dipstick, Aut oon 07-21-2020 Bilirubin Ql (U) Negative Negative [facility] Glucose Ql (U) Negative Negative mg/dL [facility] Hemoglobin Ql (U) Large Abnormal Negative [facility] Ketones Ql (U) Negative Negative mg/dL [facility] Leukocyte esterase Test strip Ql (U) Small Abnormal Negative [facility] Nitrite Ql (U) Negative Negative [facility] pH (U) 6.0 [pH] [facility] Protein Ql (U) Negative Negative mg/dL [facility] Specific gravity (U) [Rel density] 1.025 [facility] Urobilinogen Qn (U) 1.0 mg/dL <2.0 [facility] ealt Microscopic Urinalysison Bacteria, UA MODERATE Abnormal Negative /HPF [facility], [place] Epithelial Cells, UA 5-10 /HPF [place], [place] Interpretation and review of laboratory results Abnormal [place], [place] WBC, UA 0-2 [facility] Urine Reflex to Cultureon Bilirubin Urine Negative Negative [facility] Blood, Urine Trace-intact Negative [facility] Clarity, UA SLCLOUDY Clear [facility] Color, UA Yellow Straw/Yellow [facility] Glucose, Ur Negative Negative mg/dL [facility] Ketones Ql (U) Negative Negative mg/dL [place], [place] Leukocyte esterase Test strip Ql (U) Small Negative [place] Nitrite, Urine Negative Negative [place] pH, UA 7.0 [place] Protein (U) [Mass/Vol] Negative Negative mg/dL [place] Specific [place], UA 1.020 [place], [place] Urine Reflex to Culture Not Indicated [place] Urobilinogen, Urine 0.2 <2.0 E.U./dL [place], [place] Otheron 04-18-2019 XR Shoulder 2 views Please click on the link to view the study images [facility] Work Phone: Comment on above: Ordering Provider: Max FISHER [id number] eOperative Reporton 05-09-20 eOperative Report [address] [id number] OPERATIVE REPORT Patient Name:SUSSY CRANE Dictating Physician: Radu Fisher M.D. Admission Date: 05/08/2018 Discharge Date: 05/08/2018 SURGEON: Coreen Sumner MD AERONAUTICAL RESEARCH ENGINEER: Radu Weldon PA-C PREOPERATIVE DIAGNOSIS: Right shoulder labral tear, Bankart tear, and SLAP tear. POSTOPERATIVE DIAGNOSIS: Right shoulder labral tear, Bankart tear, and SLAP tear. PROCEDURE: Arthroscopic capsulorraphy with a capsular shift and an arthroscopic SLAP repair. BLOOD LOSS: Minimal. FLUIDS: Less than 2 L. ANESTHESIA: General with a regional block. COMPLICATIONS: None. INDICATION: A 23-year-old female, shoulder instability, and pain after falling off a horse. MRI workupafter failing conservative treatment showed a superior labral tear, also labral tearing, Bankart tear with possible even HAGL extension, now for arthroscopy after failing conservative treatment. DESCRIPTION OF PROCEDURE: Radu Weldon PA-C was present throughout the entire case. Given the nature of the disease process and the procedure, a skilled surgical supplies sterilizer was necessary during the case. The customer assistant was necessary to hold retractors and manipulate the extremity during the procedure. A certified medication aide was at the back table managing the instruments and supplies for the surgical case. The patient was brought to the operating room, induction of anesthesia, routine prep and drape in lateral position. The arm had full range of motion with subluxation anteroinferiorly. I could not dislocate the shoulder under anesthesia, but it did slide anteroinferiorly. There was no sulcus sign. There was no posterior instability. Standard portals were made from posterior to anterior. Humeral head glenoid was intact. The labrum was severely torn from around the 11 o'clock to the 1 o'clock position including all of the base of the biceps. The biceps was intact. The cuff was intact. There was some mild fraying of the anterior subscapularis, but no detachment. There was a complete absent labral complex from roughly 2 o'clock to 4 o'clock consistent with the previously described Francesca complex. The middle and superior glenohumeral ligaments inserted directly into the biceps base. The inferior glenohumeral ligament had peeled off the bone and also had recessed inferiorly. We freshened and cleaned the bone with our shaver from the anterosuperior portal with an anterior-inferior working portal, placed 2 anchors starting at roughly to 5:30 o'clock and 4 o'clock position. A capsular shift and plication was done by taking tissue inferior to the anchors, shifting it anteriorly and up through the labral complex. Arthroscopic knot tying technique was used to keep the knots away from the joint surface and this capsular shift sewn from inferior to superior, recreated a nice inferior [place] of the inferior glenohumeral ligament labral complex. There was no HAGL or deattachment of the humeral side. The camera was then switched posteriorly, we placed 2 anchors percutaneously around the biceps base. The #3 Biosuture anchors had excellent purchase and a complex suture pattern was used to repair and restore the normal superior labral complex insertion. This was done posterior to the biceps at the 11 o'clock and 1 o'clock position. Care was taken to not close the Francesca complex and the middle glenohumeral ligament complex and to leave the absence of glenoid tissue from roughly 1:30 clock to 3:30 clock position. Lavage irrigation was completed. Final photo documentation completed. Camera was withdrawn. Shoulder was drained. Portal closure, bulky dressing, sling, and the patient was taken to recovery room. Radu Fisher M.D. INTERNAL JOB NUMBER: [id number] CC: Edited By Radu Fisher MD (14 May 2018 13:30:48 GMT) Electronically signed by Radu Fisher MD on 14 May 2018 13:30:48 GMT Normal [facility] Test (Serum)on Test, Serum Negative Normal [facility] Comment on above: Performed By: #### 2 [id number] #### [facility] [address] [place] [address] eHistory And Physicalon 04-28 [place] [address] HISTORY AND PHYSICAL EXAMINATION Patient Name:SUSSY CRANE Dictating Physician: Radu Fisher M.D. Admission Date: Discharge Date: FAMILY PHYSICIAN: Dr. Bryce Wise. CHIEF COMPLAINT: Right shoulder pain, instability. The patient injured right shoulder almost a year ago. She has been treating this conservatively. She has a lot of popping and pain. MRI reveals a labral tearing. After risks, benefits, and alternatives were discussed and conservative therapy failed to provide relief. She elected to proceed with arthroscopic right shoulder labral repair. Surgery will be performed on May 08, 2018, at [facility]. We will order scalene nerve block preoperative. CURRENT MEDICATIONS: Meloxicam and vitamin D. ALLERGIES: NO KNOWN DRUG ALLERGIES. PREVIOUS SURGICAL HISTORY: Significant for wisdom teeth extraction, ECMO. SOCIAL HISTORY: She is employed, single, lives at home. Denies substance abuse. Denies alcohol use. Denies any smoking history. FAMILY HISTORY: Significant for osteoarthritis. REVIEW OF SYSTEMS: Noncontributory. PHYSICAL EXAMINATION: GENERAL: This is a 23-year-old female, height 5 feet 4 inches, weight 140. HEENT: Eyes, pupils equal, round, and reactive to light and accommodation. Extraocular movements are intact. CHEST: Lungs are clear to auscultation bilaterally. CARDIAC: Regular rate and rhythm. No murmurs, rubs, or gallops appreciated. ABDOMEN: Soft, nontender. Normoactive bowel sounds x4 quadrants. EXTREMITIES: Right shoulder, the patient has forward flexion up to 160, abduction 90. Positive apprehension sign, external rotation of 70, internal rotation T10. ASSESSMENT: Right shoulder labral tearing. PLAN: Right shoulder arthroscopic labral repair. This would be on May 08, 2018, at [facility]. Radu Weldon PA-C for Radu Fisher M.D. INTERNAL JOB NUMBER: [id number] CC: Electronically signed by Radu Fisher MD on 08 May 2018 12:28:41 GMT Normal [facility] CBC With Differentialon 120 Basophils #/vol (Bld) 0.04 10*3/uL Normal 0.01-0.07 [facility] Comment on above: Performed By: #### 1 [id number] #### [facility] [address] [place] [address] Basophils/100 WBC (Bld) 0.6 % Normal 0.1-1.2 [facility] Comment on above: Performed By: #### 1 [id number] #### [facility] [address] [place] [address] Eosinophils #/vol (Bld) 0.08 10*3/uL Normal 0.04-0.50 [facility] Comment on above: Performed By: #### 1 [id number] #### [facility] [address] [place] [address] Eosinophils/100 WBC (Bld) 1.2 % Normal 0.0-8.1 [facility] Comment on above: Performed By: #### 1 [id number] #### [facility] [address] [place] [address] Erythrocyte distribution width Ratio (RBC) 11.8 % Low 12.0-15.4 [facility] Comment on above: Performed By: #### 1 [id number] #### [facility] [address] [place] [address] Hematocrit Volume Fraction (Bld) 39.1 % Normal 36.5-46.6 [facility] Comment on above: Performed By: #### 1 [id number] #### [facility] [address] [place] [address] Hemoglobin mass conc (Bld) 13.0 g/dL Normal 11.8-15.3 [facility] Comment on above: Performed By: #### 1 [id number] #### [facility] [address] [place] [address] Imm Grans Absolute 0.01 10*3/uL Normal 0.00-0.21 [facility] Comment on above: Performed By: #### 1 [id number] #### [facility] [address] [place] [address] Immature granulocytes #/vol (Bld) 0.1 % Normal [facility] Comment on above: Performed By: #### 1 [id number] #### [facility] [address] [place] [address] Lymphocytes #/vol (Bld) 2.18 10*3/uL Normal 0.40-2.84 [facility] Comment on above: Performed By: #### 1 [id number] #### [facility] [address] [place] [address] Lymphocytes/100 WBC (Bld) 32.5 % Normal 15.7-50.5 [facility] Comment on above: Performed By: #### 1 [id number] #### [facility] [address] [place] [address] MCH Entitic mass (RBC) 29.1 pg Normal 27.5-33.0 [facility] Comment on above: Performed By: #### 1 [id number] #### [facility] [address] [place] [address] MCHC mass conc (RBC) 33.2 g/dL Normal 30.1-35.0 [facility] Comment on above: Performed By: #### 1 [id number] #### [facility] [address] [place] [address] MCV Entitic volume (RBC) 87.5 fL Normal 85.4-100.0 [facility] Comment on above: Performed By: #### 1 [id number] #### [facility] [address] [place] [address] Monocytes #/vol (Bld) 0.51 10*3/uL Normal 0.25-0.83 [facility] Comment on above: Performed By: #### 1 [id number] #### [facility] [address] [place] [address] Monocytes/100 WBC (Bld) 7.6 % Normal 4.8-12.7 [facility] Comment on above: Performed By: #### 1 [id number] #### [facility] [address] [place] [address] Neutrophils Absolute 3.89 10*3/uL Normal 1.95-6.85 [facility] Comment on above: Performed By: #### 1 [id number] #### [facility] [address] [place] [address] Neutrophils/100 WBC (Bld) 58.0 % Normal 36.8-73.2 [facility] Comment on above: Performed By: #### 1 [id number] #### [facility] [address] [place] [address] NRBC Absolute 0.00 10*3/uL Normal [facility] Comment on above: Performed By: #### 1 [id number] #### [facility] [address] [place] [address] NRBC Automated 0.0 /100{WBCs} Normal [facility] Comment on above: Performed By: #### 1 [id number] #### [facility] [address] [place] [address] Platelet mean volume Entitic volume (Bld) 9.3 fL Low 9.9-12.1 [facility] Comment on above: Performed By: #### 1 [id number] #### [facility] [address] [place] [address] Platelets #/vol (Bld) 348 10*3/uL Normal 155-404 [facility] Comment on above: Performed By: #### 1 [id number] #### [facility] [address] [place] [address] RBC #/vol (Bld) 4.47 10*6/uL Normal 3.85-5.10 [facility] Comment on above: Performed By: #### 1 [id number] #### [facility] [address] [place] [address] RDW SD 38.2 fL Low 39.3-48.6 [facility] Comment on above: Performed By: #### 1 [id number] #### [facility] [address] [place] [address] WBC #/vol (Bld) 6.7 10*3/uL Normal 4.4-9.9 [facility] Comment on above: Performed By: #### 1 [id number] #### [facility] [address] [place] [address] Comprehensive Metabolic Pane claudia 05-02-2018 Albumin mass conc 4.6 g/dL Normal 3.4-5.0 [facility] Comment on above: Performed By: #### 2 [id number] #### [facility] [address] [place] [address] Albumin/Globulin mass ratio 1.7 {ratio} Normal 0.9-2.4 [facility] Comment on above: Performed By: #### 2 [id number] #### [facility] [address] [place] [address] ALP enzyme act/vol 80 U/L Normal 45-117 [facility] Comment on above: Performed By: #### 2 [id number] #### [facility] [address] [place] [address] ALT enzyme act/vol 11 U/L Normal 7-45 [facility] Comment on above: Performed By: #### 2 [id number] #### [facility] [address] [place] [address] Anion gap molar conc 11 mmol/L Normal 10-20 [facility] Comment on above: Performed By: #### 2 [id number] #### [facility] [address] [place] [address] AST enzyme act/vol 15 U/L Normal 13-39 [facility] Comment on above: Performed By: #### 2 [id number] #### [facility] [address] [place] [address] Bilirubin mass conc 0.3 mg/dL Normal 0.0-1.2 [facility] Comment on above: Performed By: #### 2 [id number] #### [facility] [address] [place] [address] Calcium mass conc 9.6 mg/dL Normal 8.6-10.3 [facility] Comment on above: Performed By: #### 2 [id number] #### [facility] [address] [place] [address] Chloride molar conc 106 mmol/L Normal 98-107 [facility] Comment on above: Performed By: #### 2 [id number] #### [facility] [address] [place] [address] Creatinine mass conc 0.83 mg/dL Normal 0.50-1.05 [facility] Comment on above: Performed By: #### 2 [id number] #### [facility] [address] [place] [address] GFR/1.73 sq M.predicted MDRD vol rate/area mL/min/{1.73_m2} Normal [facility] Comment on above: Result Comment: Inte rpretation for Chronic Kidney Disease: Stages 1&2 >60 Healthy or potential kidney damage. Mild decrease of GFR. Stage 3 30-59 Moderate decrease of GFR. Stage 4 15-29 Severe decrease of GFR. Stage 5 <15 Kidney failure or on dialysis. Performed By: #### 2 [id number] #### [facility] [address] [place] [address] Glucose mass conc 80 mg/dL Normal 70-100 [facility] Comment on above: Performed By: #### 2 [id number] #### [facility] [address] [place] [address] HCO3 molar conc (Bld) 28 mmol/L Normal 21-32 [facility] Comment on above: Performed By: #### 2 [id number] #### [facility] [address] [place] [address] Potassium molar conc 3.8 mmol/L Normal 3.5-5.1 [facility] Comment on above: Performed By: #### 2 [id number] #### [facility] [address] [place] [address] Protein mass conc 7.3 g/dL Normal 6.4-8.2 [facility] Comment on above: Performed By: #### 2 [id number] #### [facility] [address] [place] [address] Sodium molar conc 141 mmol/L Normal 136-145 [facility] Comment on above: Performed By: #### 2 [id number] #### [facility] [address] [place] [address] Urea nitrogen mass conc 10 mg/dL Normal 6-23 [facility] Comment on above: Performed By: #### 2 [id number] #### [facility] [address] [place] [address] Urea nitrogen/Creatinine mass ratio 12 mg/mg Normal 5-25 [facility] Comment on above: Performed By: #### 2 [id number] #### [facility] [address] [place] [address] Partial Thromboplastin Timeo n 05-02-2018 aPTT Coag time (Bld) 36.4 s Normal 28.0-38.0 [facility] Comment on above: Result Comment: LOLI SAEED NOTE NEW REFERENCE RANGE EFFECTIVE 10:00AM 04/25/2018 . The APTT is no longer used for monitoring Unfractionated Heparin Therapy. For monitoring Heparin Therapy, use the Heparin Assay. Performed By: #### 2 [id number] #### [facility] [address] [place] [address] Prothrombin Timeon 8 INR Coag RelTime (PPP) 1.12 {INR} High 0.90-1.10 [facility] Comment on above: Performed By: #### 2 [id number] #### [facility] [address] [place] [address] Prothrombin time (PT) Coag time (PPP) 12.7 s Normal 9.7-12.7 [facility] Comment on above: Result Comment: LOLI SAEED NOTE NEW REFERENCE RANGE EFFECTIVE 2018 Performed By: #### 2 [id number] #### [facility] [address] [place] [address] Urinalysison 05-02-2018 Amorphous Crystal Occasional Normal None [facility] Comment on above: Performed By: #### 2 [id number] #### [facility] [address] [place] [address] Appearance Nom (U) Cloudy Normal Clear [facility] Comment on above: Performed By: #### 2 [id number] #### [facility] [address] [place] [address] Ascorbic Acid Negative Normal Negative [facility] Comment on above: Performed By: #### 2 [id number] #### [facility] [address] [place] [address] Automated Urine Microscopy Performed Normal [facility] Comment on above: Performed By: #### 2 [id number] #### [facility] [address] [place] [address] Bilirubin mass conc Negative Normal Negative [facility] Comment on above: Performed By: #### 2 [id number] #### [facility] [address] [place] [address] Blood Negative Normal Negative [facility] Comment on above: Performed By: #### 2 [id number] #### [facility] [address] [place] [address] Color Nom (U) Yellow Normal [facility] Comment on above: Performed By: #### 2 [id number] #### [facility] [address] [place] [address] Glucose mass conc Negative Normal Negative [facility] Comment on above: Performed By: #### 2 [id number] #### [facility] [address] [place] [address] Ketones Ql (U) Negative Normal Negative [facility] Comment on above: Performed By: #### 2 789349 #### [facility] [address] [place] [address] Leukocytes Esterase Small Abnormal Negative [facility] Comment on above: Performed By: #### 2 105492 #### [facility] [address] [place] [address] Mucous Moderate Normal None [facility] Comment on above: Performed By: #### 2 [id number] #### [facility] [address] [place] [address] Nitrite Ql (U) Negative Normal Negative [facility] Comment on above: Performed By: #### 2 297818 #### [facility] [address] [place] [address] pH (Bld) 6.0 Normal 5.0-9.0 [facility] Comment on above: Performed By: #### 2 [id number] #### [facility] [address] [place] [address] Protein mass conc (U) 30 mg/dL Abnormal Negative [facility] Comment on above: Performed By: #### 2 021576 #### [facility] [address] [place] [address] RBC 5 /[HPF] Normal 0-3 [facility] Comment on above: Performed By: #### 2 [id number] #### [facility] [address] [place] [address] Specific gravity Relative Density (U) 1.023 Normal 1.003-1.035 [facility] Comment on above: Performed By: #### 2 108680 #### [facility] [address] [place] [address] Squamous Epithelial Cells 69 /[HPF] Normal 0-5 [facility] Comment on above: Performed By: #### 2 785491 #### [facility] [address] [place] [address] Urobilinogen Qn (U) 2.0 mg/dL Abnormal Negative [facility] Comment on above: Result Comment: Due to a manufacturing issue, low positive urobilinogen results may be falsely positive. Correlate with urine bilirubin and additional clinical/laboratory findings to assess the risk of hemolytic anemia or liver disease. If clinically indicated, repeat testing with an alternate method is available by contacting the laboratory within 24 hours. Performed By: #### 2 [id number] #### [facility] [address] [place] [address] WBC 24 /[HPF] Normal 0-5 [facility] Comment on above: Performed By: #### 2 [id number] #### [facility] [address] [place] [address] Basic Metabolic Panelon 3 Anion gap molar conc 12 mmol/L Normal 10-20 [facility] Comment on above: Performed By: #### 1 [id number] #### [facility] [address] [place] [address] Chloride molar conc 104 mmol/L Normal 98-107 [facility] Comment on above: Performed By: #### 1 [id number] #### [facility] [address] [place] [address] Creatinine mass conc 0.88 mg/dL Normal 0.50-1.05 [facility] Comment on above: Performed By: #### 1 306644 #### [facility] [address] [place] [address] GFR/1.73 sq M.predicted MDRD vol rate/area mL/min/{1.73_m2} Normal [facility] Comment on above: Result Comment: Inte rpretation for Chronic Kidney Disease: Stages 1&2 >60 Healthy or potential kidney damage. Mild decrease of GFR. Stage 3 30-59 Moderate decrease of GFR. Stage 4 15-29 Severe decrease of GFR. Stage 5 <15 Kidney failure or on dialysis. Performed By: #### 1 [id number] #### [facility] [address] [place] [address] Glucose mass conc 78 mg/dL Normal 70-100 [facility] Comment on above: Performed By: #### 1 [id number] #### [facility] [address] [place] [address] HCO3 molar conc (Bld) 28 mmol/L Normal 21-32 [facility] Comment on above: Performed By: #### 1 396146 #### [facility] [address] [place] [address] Potassium molar conc 3.8 mmol/L Normal 3.5-5.1 [facility] Comment on above: Performed By: #### 1 [id number] #### [facility] [address] [place] [address] Sodium molar conc 140 mmol/L Normal 136-145 [facility] Comment on above: Performed By: #### 1 [id number] #### [facility] [address] [place] [address] Urea nitrogen mass conc 13 mg/dL Normal 6-23 [facility] Comment on above: Performed By: #### 1 716079 #### [facility] [address] [place] [address] Urea nitrogen/Creatinine mass ratio 15 mg/mg Normal 5-25 [facility] Comment on above: Performed By: #### 1 [id number] #### [facility] [address] [place] [address] C-Reactive Proteinon 01-25- 018 CRP mass conc 0.4 mg/dL Normal 0.0-1.0 [facility] Comment on above: Performed By: #### 1 [id number] #### [facility] [address] [place] [address] CBC With Differentialon 12-29 Basophils #/vol (Bld) 0.02 10*3/uL Normal 0.01-0.07 [facility] Comment on above: Performed By: #### 2 [id number] #### [facility] [address] [place] [address] Basophils/100 WBC (Bld) 0.3 % Normal 0.1-1.2 [facility] Comment on above: Performed By: #### 2 [id number] #### [facility] [address] [place] [address] Eosinophils #/vol (Bld) 0.04 10*3/uL Normal 0.04-0.50 [facility] Comment on above: Performed By: #### 2 [id number] #### [facility] [address] [place] [address] Eosinophils/100 WBC (Bld) 0.6 % Normal 0.0-8.1 [facility] Comment on above: Performed By: #### 2 [id number] #### [facility] [address] [place] [address] Erythrocyte distribution width Ratio (RBC) 12.0 % Normal 12.0-15.4 [facility] Comment on above: Performed By: #### 2 [id number] #### [facility] [address] [place] [address] Hematocrit Volume Fraction (Bld) 42.2 % Normal 36.5-46.6 [facility] Comment on above: Performed By: #### 2 768315 #### [facility] [address] [place] [address] Hemoglobin mass conc (Bld) 14.1 g/dL Normal 11.8-15.3 [facility] Comment on above: Performed By: #### 2 [id number] #### [facility] [address] [place] [address] Imm Grans Absolute 0.01 10*3/uL Normal 0.00-0.21 [facility] Comment on above: Performed By: #### 2 797713 #### [facility] [address] [place] [address] Immature granulocytes #/vol (Bld) 0.1 % Normal [facility] Comment on above: Performed By: #### 2 [id number] #### [facility] [address] [place] [address] Lymphocytes #/vol (Bld) 2.84 10*3/uL Normal 0.40-2.84 [facility] Comment on above: Performed By: #### 2 366383 #### [facility] [address] [place] [address] Lymphocytes/100 WBC (Bld) 42.2 % Normal 15.7-50.5 [facility] Comment on above: Performed By: #### 2 [id number] #### [facility] [address] [place] [address] MCH Entitic mass (RBC) 29.2 pg Normal 27.5-33.0 [facility] Comment on above: Performed By: #### 2 [id number] #### [facility] [address] [place] [address] MCHC mass conc (RBC) 33.4 g/dL Normal 30.1-35.0 [facility] Comment on above: Performed By: #### 2 [id number] #### [facility] [address] [place] [address] MCV Entitic volume (RBC) 87.4 fL Normal 85.4-100.0 [facility] Comment on above: Performed By: #### 2 [id number] #### [facility] [address] [place] [address] Monocytes #/vol (Bld) 0.41 10*3/uL Normal 0.25-0.83 [facility] Comment on above: Performed By: #### 2 [id number] #### [facility] [address] [place] [address] Monocytes/100 WBC (Bld) 6.1 % Normal 4.8-12.7 [facility] Comment on above: Performed By: #### 2 [id number] #### [facility] [address] [place] [address] Neutrophils Absolute 3.41 10*3/uL Normal 1.95-6.85 [facility] Comment on above: Performed By: #### 2 350126 #### [facility] [address] [place] [address] Neutrophils/100 WBC (Bld) 50.7 % Normal 36.8-73.2 [facility] Comment on above: Performed By: #### 2 [id number] #### [facility] [address] [place] [address] NRBC Absolute 0.00 10*3/uL Normal [facility] Comment on above: Performed By: #### 2 452144 #### [facility] [address] [place] [address] NRBC Automated 0.0 /100{WBCs} Normal [facility] Comment on above: Performed By: #### 2 [id number] #### [facility] [address] [place] [address] Platelet mean volume Entitic volume (Bld) 10.6 fL Normal 9.9-12.1 [facility] Comment on above: Performed By: #### 2 [id number] #### [facility] [address] [place] [address] Platelets #/vol (Bld) 321 10*3/uL Normal 155-404 [facility] Comment on above: Performed By: #### 2 [id number] #### [facility] [address] [place] [address] RBC #/vol (Bld) 4.83 10*6/uL Normal 3.85-5.10 [facility] Comment on above: Performed By: #### 2 [id number] #### [facility] [address] [place] [address] RDW SD 38.8 fL Low 39.3-48.6 [facility] Comment on above: Performed By: #### 2 792556 #### [facility] [address] [place] [address] WBC #/vol (Bld) 6.7 10*3/uL Normal 4.4-9.9 [facility] Comment on above: Performed By: #### 2 [id number] #### [facility] [address] [place] [address] Centromere (BIBI) Ab, IgGon 0 01-25-2018 Centromere (BIBI) Ab, IgG <0.2 Normal [facility] Comment on above: Result Comment: REF VALUES < 1.0 = NEGATIVE >=1.0 = POSITIVE ESR, Westergrenon 01-25-2018 ESR, Westergren 9 mm/h Normal 0-20 [facility] Comment on above: Performed By: #### 1 [id number] #### [facility] [address] [place] [address] Folate/B12on 01-25-2018 Cobalamin (Vitamin B12) mass conc 411 pg/mL Normal 211-911 [facility] Comment on above: Performed By: #### 1 [id number] #### [facility] [address] [place] [address] Folate 13.00 ng/mL Normal [facility] Comment on above: Result Comment: Norm al Range >5.0 Performed By: #### 1 [id number] #### [facility] [address] [place] [address] Iron Profileon 01-25-2018 Iron Binding Capacity 380 ug/dL Normal 250-565 [facility] Comment on above: Performed By: #### 1 [id number] #### [facility] [address] [place] [address] Iron mass conc 64 ug/dL Normal 35-150 [facility] Comment on above: Performed By: #### 1 [id number] #### [facility] [address] [place] [address] Percent Saturation 17 % Normal 14-27 [facility] Comment on above: Performed By: #### 1 [id number] #### [facility] [address] [place] [address] Unbound Iron Binding Capacity 316 ug/dL Normal 90-340 [facility] Comment on above: Performed By: #### 1 [id number] #### [facility] [address] [place] [address] HANNA-1 (BIBI) Ab, IgGon 018 HANNA-1 (BIBI) Ab, IgG <0.2 Normal [facility] Comment on above: Result Comment: REF VALUES < 1.0 = NEGATIVE >=1.0 = POSITIVE Lupus Comp, Rfx Panelon 12-29 Anti-Nuclear Ab, W/Rfx to Titer Negative Normal NEGATIVE [facility] Comment on above: Performed By: #### 1 [id number] #### [facility] [address] [place] [address] Complement Component 3 147 mg/dL Normal 87-200 [facility] Comment on above: Performed By: #### 1 [id number] #### [facility] [address] [place] [address] Complement Component 4 39 mg/dL Normal 10-50 [facility] Comment on above: Performed By: #### 1 [id number] #### [facility] [address] [place] [address] Rheumatoid Factor <10 Normal 0-15 [facility] Comment on above: Performed By: #### 1 [id number] #### [facility] [address] [place] [address] Parathyroid Hormoneon 2017 Calcium mass conc 10.0 mg/dL Normal 8.6-10.3 [facility] Comment on above: Performed By: #### 1 [id number] #### [facility] [address] [place] [address] Parathyroid Hormone 44.6 pg/mL Normal 14.0-72.0 [facility] Comment on above: Result Comment: Ca L ow Ca Normal Ca High PTH Low Suggests hypo- Suggests hyper- parathyroid calcemia of condition malignancy condition PTH Normal Suggests normal Suggests hyper- parathyroid parathyroid condition PTH High Suggests secondary Suggests primary hyperparathyroid hyperparathyroid condition condition Performed By: #### 1 [id number] #### [facility] [address] [place] [address] TSHon 01-25-2018 Thyrotropin Qn 0.94 mU/L Normal 0.44-3.98 [facility] Comment on above: Performed By: #### 1 [id number] #### [facility] [address] [place] [address] Thyroxine, Freeon 01-25-2018 Thyroxine, Free 0.90 ng/dL Normal 0.61-1.12 [facility] Comment on above: Performed By: #### 1 [id number] #### [facility] [address] [place] [address] Vitamin D, 25 Hydroxyon 12-29 Vitamin D, 25 Hydroxy 25 ng/mL Abnormal [facility] Comment on above: Result Comment: DEFI CIENCY <20 INSUFFICIENCY 20-29 OPTIMUM LEVEL 30-80 POSSIBLE TOXICITY >80 Performed By: #### 1 [id number] #### [facility] [address] [place] [address] MRI CERVICAL SPINE W/O CONTR Kym 12-09-2017 MRI CERVICAL SPINE W/O CONTRAST DATE OF EXAM: Dec 09 2017 9:56AM CLINICAL HISTORY/ Patient Name: SUSSY CRANE STUDY: MRI CERVICAL SPINE W/O CONTRAST; 12/09/2017 9:56 am INDICATION: cervical radiculopathy, sprain/neck pain. Neck pain. Bilateral upper extremity paresthesias. History of fall from horse. No previous neck surgery. COMPARISON: None. ACCESSION NUMBER(S): [id number] ORDERING CLINICIAN: RADU REED TECHNIQUE: Multiplanar and multisequential MR images of the cervical spine are performed. FINDINGS: The cervical vertebral heights and AP alignment are within normal limits. There is no bone marrow edema. There is slight disc desiccation at the C4-5 disc space level. The craniocervical relationship is within normal limits. The cervical spinal cord is of normal and uniform caliber. There is no intramedullary mass or cord expansion. The C2-3 disc space level is unremarkable. C3-4 disc space level is unremarkable. The C4-5 disc space level demonstrates mild facet arthrosis though is otherwise unremarkable. The C5-6 disc space level demonstrates mild uncovertebral arthrosis on the left. There is no central canal or significant neural foraminal stenosis. The C6-7 disc space level demonstrates minimal bulging disc asymmetric to the left. There may be mild narrowing of the left neural foramen. The C7-T1 disc space level is unremarkable. CONCLUSION: IMPRESSION: No sign of cervical disc protrusion. There is no significant central canal stenosis. Minimal bulging disc at C6-7, asymmetric to the left. There is only minimal narrowing of the left neural foramen. No evidence of acute osseous abnormality. Normal [facility] CBC With Differentialon 09-26 Basophils #/vol (Bld) 0.02 10*3/uL Normal 0.01-0.07 [facility] Comment on above: Performed By: #### 2 [id number] #### [facility] [address] [place] [address] Basophils/100 WBC (Bld) 0.3 % Normal 0.1-1.2 [facility] Comment on above: Performed By: #### 2 [id number] #### [facility] [address] [place] [address] Eosinophils #/vol (Bld) 0.10 10*3/uL Normal 0.04-0.50 [facility] Comment on above: Performed By: #### 2 [id number] #### [facility] [address] [place] [address] Eosinophils/100 WBC (Bld) 1.6 % Normal 0.0-8.1 [facility] Comment on above: Performed By: #### 2 [id number] #### [facility] [address] [place] [address] Erythrocyte distribution width Ratio (RBC) 12.3 % Normal 12.0-15.4 [facility] Comment on above: Performed By: #### 2 [id number] #### [facility] [address] [place] [address] Hematocrit Volume Fraction (Bld) 40.8 % Normal 37.0-49.0 [facility] Comment on above: Performed By: #### 2 [id number] #### [facility] [address] [place] [address] Hemoglobin mass conc (Bld) 13.6 g/dL Normal 12.4-14.8 [facility] Comment on above: Performed By: #### 2 [id number] #### [facility] [address] [place] [address] Imm Grans Absolute 0.02 10*3/uL Normal 0.00-0.21 [facility] Comment on above: Performed By: #### 2 [id number] #### [facility] [address] [place] [address] Immature granulocytes #/vol (Bld) 0.3 % Normal [facility] Comment on above: Performed By: #### 2 [id number] #### [facility] [address] [place] [address] Lymphocytes #/vol (Bld) 3.00 10*3/uL High 0.40-2.84 [facility] Comment on above: Performed By: #### 2 [id number] #### [facility] [address] [place] [address] Lymphocytes/100 WBC (Bld) 48.5 % Normal 15.7-50.5 [facility] Comment on above: Performed By: #### 2 [id number] #### [facility] [address] [place] [address] MCH Entitic mass (RBC) 29.6 pg Normal 25.0-35.0 [facility] Comment on above: Performed By: #### 2 [id number] #### [facility] [address] [place] [address] MCHC mass conc (RBC) 33.3 g/dL Normal 32.0-35.9 [facility] Comment on above: Performed By: #### 2 [id number] #### [facility] [address] [place] [address] MCV Entitic volume (RBC) 88.9 fL Normal 80.0-100.0 [facility] Comment on above: Performed By: #### 2 [id number] #### [facility] [address] [place] [address] Monocytes #/vol (Bld) 0.41 10*3/uL Normal 0.25-0.83 [facility] Comment on above: Performed By: #### 2 914655 #### [facility] [address] [place] [address] Monocytes/100 WBC (Bld) 6.6 % Normal 4.8-12.7 [facility] Comment on above: Performed By: #### 2 [id number] #### [facility] [address] [place] [address] Neutrophils Absolute 2.63 10*3/uL Normal 1.95-6.85 [facility] Comment on above: Performed By: #### 2 [id number] #### [facility] [address] [place] [address] Neutrophils/100 WBC (Bld) 42.7 % Normal 36.8-73.2 [facility] Comment on above: Performed By: #### 2 [id number] #### [facility] [address] [place] [address] NRBC Absolute 0.00 10*3/uL Normal [facility] Comment on above: Performed By: #### 2 [id number] #### [facility] [address] [place] [address] NRBC Automated 0.0 /100{WBCs} Normal [facility] Comment on above: Performed By: #### 2 [id number] #### [facility] [address] [place] [address] Platelet mean volume Entitic volume (Bld) 10.1 fL Normal 9.9-12.1 [facility] Comment on above: Performed By: #### 2 [id number] #### [facility] [address] [place] [address] Platelets #/vol (Bld) 355 10*3/uL Normal 155-404 [facility] Comment on above: Performed By: #### 2 [id number] #### [facility] [address] [place] [address] RBC #/vol (Bld) 4.59 10*6/uL Normal 4.10-5.10 [facility] Comment on above: Performed By: #### 2 [id number] #### [facility] [address] [place] [address] RDW SD 40.1 fL Normal 39.3-48.6 [facility] Comment on above: Performed By: #### 2 [id number] #### [facility] [address] [place] [address] WBC #/vol (Bld) 6.2 10*3/uL Normal 4.5-13.5 [facility] Comment on above: Performed By: #### 2 [id number] #### [facility] [address] [place] [address] Comprehensive Metabolic Pane claudia 10-06-2017 Albumin mass conc 4.7 g/dL Normal 3.4-5.0 [facility] Comment on above: Performed By: #### 1 [id number] #### [facility] [address] [place] [address] Albumin/Globulin mass ratio 1.7 {ratio} Normal 0.9-2.4 [facility] Comment on above: Performed By: #### 1 [id number] #### [facility] [address] [place] [address] ALP enzyme act/vol 63 U/L Normal 45-117 [facility] Comment on above: Performed By: #### 1 [id number] #### [facility] [address] [place] [address] ALT enzyme act/vol 8 U/L Normal 7-45 [facility] Comment on above: Performed By: #### 1 [id number] #### [facility] [address] [place] [address] Anion gap molar conc 13 mmol/L Normal 10-20 [facility] Comment on above: Performed By: #### 1 [id number] #### [facility] [address] [place] [address] AST enzyme act/vol 14 U/L Normal 13-39 [facility] Comment on above: Performed By: #### 1 [id number] #### [facility] [address] [place] [address] Bilirubin mass conc 0.5 mg/dL Normal 0.0-1.2 [facility] Comment on above: Performed By: #### 1 [id number] #### [facility] [address] [place] [address] Calcium mass conc 9.7 mg/dL Normal 8.6-10.3 [facility] Comment on above: Performed By: #### 1 [id number] #### [facility] [address] [place] [address] Chloride molar conc 105 mmol/L Normal 98-107 [facility] Comment on above: Performed By: #### 1 [id number] #### [facility] [address] [place] [address] Creatinine mass conc 0.90 mg/dL Normal 0.50-1.05 [facility] Comment on above: Performed By: #### 1 [id number] #### [facility] [address] [place] [address] GFR/1.73 sq M.predicted MDRD vol rate/area mL/min/{1.73_m2} Normal [facility] Comment on above: Result Comment: Inte rpretation for Chronic Kidney Disease: Stages 1&2 >60 Healthy or potential kidney damage. Mild decrease of GFR. Stage 3 30-59 Moderate decrease of GFR. Stage 4 15-29 Severe decrease of GFR. Stage 5 <15 Kidney failure or on dialysis. Performed By: #### 1 [id number] #### [facility] [address] [place] [address] Glucose mass conc 79 mg/dL Normal 70-100 [facility] Comment on above: Performed By: #### 1 [id number] #### [facility] [address] [place] [address] HCO3 molar conc (Bld) 27 mmol/L Normal 21-32 [facility] Comment on above: Performed By: #### 1 [id number] #### [facility] [address] [place] [address] Potassium molar conc 4.0 mmol/L Normal 3.5-5.1 [facility] Comment on above: Performed By: #### 1 [id number] #### [facility] [address] [place] [address] Protein mass conc 7.5 g/dL Normal 6.4-8.2 [facility] Comment on above: Performed By: #### 1 [id number] #### [facility] [address] [place] [address] Sodium molar conc 141 mmol/L Normal 136-145 [facility] Comment on above: Performed By: #### 1 [id number] #### [facility] [address] [place] [address] Urea nitrogen mass conc 13 mg/dL Normal 6-23 [facility] Comment on above: Performed By: #### 1 [id number] #### [facility] [address] [place] [address] Urea nitrogen/Creatinine mass ratio 14 mg/mg Normal 5-25 [facility] Comment on above: Performed By: #### 1 [id number] #### [facility] [address] [place] [address] Test (Serum)on Test, Serum Negative Normal [facility] Comment on above: Performed By: #### 3 [id number] #### [facility] [address] [place] [address] Prolactinon 10-06-2017 Protein mass conc 12.5 ug/L Normal 6.0-20.0 [facility] TSHon 10-06-2017 Thyrotropin Qn 2.79 mU/L Normal 0.44-3.98 [facility] Comment on above: Performed By: #### 1 [id number] #### [facility] [address] [place] [address] CBC PLATELET AUTO DIFFon BASO ABS 0.01 K/uL Normal 0-0.20 [facility] Comment on above: Performed By: #### L CBCD ####[facility] [address] [place] [address] Basophils/100 WBC Auto (Bld) 0.2 % Normal [facility] Comment on above: Performed By: #### L CBCD ####[address] [address] EOS ABS 0.07 K/uL Low 0.10-0.30 [facility] Comment on above: Performed By: #### L CBCD ####[address] [address] Eosinophils/100 leukocytes 1.1 % Normal [facility] Comment on above: Performed By: #### L CBCD ####[facility] [address] [place] [address] Erythrocyte distribution width Auto Ratio (RBC) 13.2 % Normal 11.5-14.5 [facility] Comment on above: Performed By: #### L CBCD ####[facility] [address] [place] [address] Erythrocytes (RBC) 0.00 10*6/uL Normal [facility] Comment on above: Performed By: #### L CBCD ####[facility] [address] [place] [address] Erythrocytes (RBC) 4.36 10*6/uL Normal 3.5-5.5 [facility] Comment on above: Performed By: #### L CBCD ####[facility] [address] [place] [address] Hematocrit (HCT) 36.0 % Normal 36.0-48.0 [facility] Comment on above: Performed By: #### L CBCD ####[facility] [address] [place] [address] Hemoglobin mass conc (Bld) 12.6 g/dL Normal 12.0-15.0 [facility] Comment on above: Performed By: #### L CBCD ####[address] [address] IG % 0.2 % Normal [facility] Comment on above: Performed By: #### L CBCD ####[place] [id number] IG ABS 0.01 K/uL Normal [facility] Comment on above: Performed By: #### L CBCD ####[place] [id number] Lymphocytes 2.93 10*3/uL Normal 1.2-4.0 [facility] Comment on above: Performed By: #### L CBCD ####[place] 5488945 Lymphocytes/100 leukocytes 46.5 % Normal [facility] Comment on above: Performed By: #### L CBCD ####[place] [id number] MCH 28.9 pg Normal 25.4-34.6 [facility] Comment on above: Performed By: #### L CBCD ####[address] [address] MCHC mass conc (RBC) 35.0 g/dL Normal 30.0-36.0 [facility] Comment on above: Performed By: #### L CBCD ####[place] [id number] MCV 82.6 fL Normal 79.0-98.0 [facility] Comment on above: Performed By: #### L CBCD ####[address] [address] MONO ABS 0.46 K/uL Normal 0-1.00 [facility] Comment on above: Performed By: #### L CBCD ####[address] [address] Monocytes/100 leukocytes 7.3 % Normal [facility] Comment on above: Performed By: #### L CBCD ####[address] [place] [address] NEUT ABS 2.82 K/uL Normal 1.9-8.0 [facility] Comment on above: Performed By: #### L CBCD ####[address] [address] Neutrophils/100 WBC Auto (Bld) 44.7 % Normal [facility] Comment on above: Performed By: #### L CBCD ####[address] [address] NRBC % 0.0 /100 WBC Normal 0 [facility] Comment on above: Performed By: #### L CBCD ####[address] [address] Platelet mean volume (PMV) 9.8 fL Normal 8.4-11.9 [facility] Comment on above: Performed By: #### L CBCD ####[address] [address] Platelets 282 10*3/uL Normal 140-440 [facility] Comment on above: Performed By: #### L CBCD ####[address] [address] WBC (Leukocytes) 6.3 10*3/uL Normal 3.9-11.0 [facility] Comment on above: Performed By: #### L CBCD ####[facility] [address] [place] [address] COMP METABOLIC PANELon 01-01 Alanine aminotransferase (ALT) 10 U/L Normal 7-45 [facility] Comment on above: Performed By: #### L CMP, LGFRP ####[facility] [address] [place] [address] Albumin 4.8 g/dL Normal 3.4-5.0 [facility] Comment on above: Performed By: #### L CMP, LGFRP ####[address] [address] ALK PHOS TOTAL 50 U/L Normal 45-117 [facility] Comment on above: Performed By: #### L CMP, LGFRP ####[address] [address] Aspartate aminotransferase (AST) 17 U/L Normal 13-39 [facility] Comment on above: Result Comment: MILD HEMOLYSIS DETECTED. The result may be falsely elevateddue to hemolysis or other interferents. Clinicalcorrelation is recommended. Repeat testing may beconsidered. Performed By: #### L CMP, LGFRP ####[facility] [address] [place] [address] BILI TOTAL 0.4 mg/dL Normal 0-1.2 [facility] Comment on above: Performed By: #### L CMP, LGFRP ####[facility] [address] [place] [address] Calcium 9.6 mg/dL Normal 8.6-10.3 [facility] Comment on above: Performed By: #### L CMP, LGFRP ####[facility] [address] [place] [address] Chloride 106 mmol/L Normal 98-107 [facility] Comment on above: Performed By: #### L CMP, LGFRP ####[facility] [address] [place] [address] CO2 26 mmol/L Normal 21-32 [facility] Comment on above: Performed By: #### L CMP, LGFRP ####[facility] [address] [place] [address] Creatinine 0.80 mg/dL Normal 0.5-1.05 [facility] Comment on above: Performed By: #### L CMP, LGFRP ####[facility] [address] [place] [address] Glucose mass conc 97 mg/dL Normal 74-99 [facility] Comment on above: Performed By: #### L CMP, LGFRP ####[facility] [address] [place] [address] Potassium molar conc 4.3 mmol/L Normal 3.5-5.3 [facility] Comment on above: Result Comment: MILD HEMOLYSIS DETECTED. The result may be falsely elevateddue to hemolysis or other interferents. Clinicalcorrelation is recommended. Repeat testing may beconsidered. Performed By: #### L CMP, LGFRP ####[facility] [address] [place] [address] Protein 6.9 g/dL Normal 6.4-8.2 [facility] Comment on above: Performed By: #### L CMP, LGFRP ####[facility] [address] [place] [address] Sodium 140 mmol/L Normal 136-145 [facility] Comment on above: Performed By: #### L CMP, LGFRP ####[facility] [address] [place] [address] Urea nitrogen 10 mg/dL Normal 6-23 [facility] Comment on above: Performed By: #### L CMP, LGFRP ####[facility] [address] [place] [address] D-DIMER QUANTon 01-01-2017 D-DIMER QUANT <200 Normal <230 [facility] Comment on above: Order Comment: RE DRAW Result Comment: Cut off value for exclusion of DVT/PE <230 ng/mL.D-Dimer results are reported in ng/mL D-Du units.The HemosIL D-Dimer assay has FDA clearance to helpexclude PE and DVT as a diagnosis. The assay has a highnegative predictive value when used in conjunction witha pre-test probability assessment in eth-ip-yfieljgajnxdbfgvd patients.Clinical diagnosis should not be based on the result ofHemosIL D-Dimer alone. Performed By: #### L DIMERQ ####[facility] [address] [place] [address] D-DIMER QUANT NotDone Normal <230 [facility] Comment on above: Result Comment: Test ing not done due to interference from hemolysis. DIMER has been reordered. Please send new specimen. Performed By: #### L PT, LDIMERQ ####[facility] [address] [place] [address] ED Provider Reporton 017 ED Provider Report [place] [id number] Name: SUSSY CRANE : [birth year]Acct #: [id number] Unit #: [id number] ER Arrival Date: 01/01/17 ER Physician: Nikko Najeratory of Present IllnessTime Seen by [id number] of InformationPATIENTTriage complaintRIGHT RIB PAIN AND RIGHT FOOT PAINHistory of Present IllnessPatient is a 21-year-old female presents the emergency department via private vehicle withright foot pain and right chest wall pain. Patient states she noticed the pain in theright side of her chest 3 days ago. States it worsens when she takes a breath. Pain alsoworsens with movement. Patient denies any trauma or injuries. Patient states that tonight,she developed right foot pain. Pain is located in the bottom of her foot. Patient doesstate that yesterday her foot was swollen. This did improve today. Patient has not takenany medications at home. She denies any trauma to the foot. Patient denies any shortnessof breath, fevers, nausea, lightheadedness. Patient has no risk factors for PE, she doesnot smoke, not on control medications, no recent travel, no personal or familyhistory of blood clots.Past Medical HistoryPast Med Hx - OtherDeniesPSHDeniesFamily Historypatient is unsure of family historyPast Social HistorySmoking Status:NEVER SMOKERAlcoholNODrug UseNOLiving arrangementshomeReview of SystemsReview of SystemsAllergiesCoded Allergies:NO KNOWN ALLERGENS (01/01/17)Allergies ReviewedYesAdditional CommentsUnless otherwise stated in this report the patient's positive and negative responses forreview of systems for constitutional, eyes, ENT, cardiovascular, respiratory,gastrointestina l, neurological, genitourinary, musculoskeletal, and integument systems andrelated systems to the presenting problem are either as stated in the HPI or were notpertinent or were negative for the symptoms and/or complaints related to the presentingmedical problem.Physical ExamVital SignsVital Signs ReviewedYesVital SignsVital SignsDate Time Temp Pulse Resp B/P B/P Pulse O2 O2 Flow ReN6Suwg Ox Delivery Rate08/06 0344 36.4 67 18 132/56 97CommentsAdditionalVital signs reviewedGeneral:Appears wellAlertHEENT:Head atraumaticEyes normal inspectionPERRLNormal ENT inspectionPharynx normalNo signs of dehydrationNECK:Normal inspectionRESPIRATORY:Abril l breath soundsNo chest wall tendernessNo respiratory distessCVS:Heart rate and rhythm regularNo MurmursABDOMEN/GISoftNon-te nderNo distentionBACK:Normal inspectionEXTREMITIES:Non-T enderNormal appearanceSensation is intact. There is good capillary refill. DP pulses are present.No Pedal edemaNEURO:Alert and oriented X 3CN's normal as testedSensation grossly normalMotor grossly normalPSYCH:Mood normalAffect normalSKIN:Color normalNo rashWarmDryMedical Decision MakingCourseCoursePatient is seen and examined. States she has had foot swelling and pain. Patient alsodescribes pleuritic right-sided chest pain. She has no risk factors for cardiac disease orfor PE. Labwork, EKG, chest x-ray, foot x-ray are ordered.Chest x-ray and foot x-ray were unremarkable. Initial d-dimer is too numerous to processdue to hemolysis, repeat is obtained. Troponin is negative. No acute labworkabnormalities. EKG shows about ischemic pattern.D dimer does return and is negative. Patient is given a postop shoe for her foot pain.Patient will be discharged with follow-up instructions. She is given a prescription forNaprosyn. She understands and agrees with discharge plan.Disposition DecisionDischargeDispositio n Date01/01/17Decision Sngr8341ZlzmdrnyvkkChkrBvhx ratory Tests01/01 01/01 01/01 01/01805165 1344 0430 0409ChemistrySodium (136 - 145 mmol/L) 140Potassium (3.5 - 5.3 mmol/l) 4.3Chloride (98 - 107 mmol/L) 106Carbon Dioxide (21 - 32 mmol/L) 26BUN (6 - 23 mg/dL) 10Creatinine (0.5 - 1.05 mg/dL) 0.80Est GFR ( Amer) (> 60 mL/MIN) > 90Est GFR (Non-Af Amer) (> 60 mL/MIN) > 90Glucose (74 - 99 mg/dL) 97Total Calcium (8.6 - 10.3 mg/dL) 9.6Total Bilirubin (0 - 1.2 mg/dL) 0.4AST (13 - 39 U/L) 17ALT (7 - 45 U/L) 10Alkaline Phosphatase (45 - 117 U/L) 50Troponin I, Quant (<0.04 ng/mL) < 0.02Total Protein (6.4 - 8.2 g/dL) 6.9Albumin (3.4 - 5.0 g/dL) 4.8CoagulationPT (9.8 - 12.7 seconds) 12.5INR 1.10D-Dimer, Quantitative (<230 ng/mL) <200 TNPHematologyWBC (3.9 - 11.0 K/uL) 6.3RBC (3.5 - 5.5 M/uL) 4.36Hgb (12.0 - 15.0 g/dL) 12.6Hct (36.0 - 48.0 %) 36.0MCV (79.0 - 98.0 fL) 82.6MCH (25.4 - 34.6 pg) 28.9MCHC (30.0 - 36.0 g/dL) 35.0RDW (11.5 - 14.5 %) 13.2Plt Count (140 - 440 K/uL) 282MPV (8.4 - 11.9 fL) 9.8Neut % (Auto) (%) 44.7Lymph % (Auto) (%) 46.5Mono % (Auto) (%) 7.3Eos % (Auto) (%) 1.1Baso % (Auto) (%) 0.2Neut # (Auto) (1.9 - 8.0 K/uL) 2.82Lymph # (Auto) (1.2 - 4.0 K/uL) 2.93Mono # (Auto) (0 - 1.00 K/uL) 0.46Eos # (Auto) (0.10 - 0.30 K/uL) 0.07 LBaso # (Auto) (0 - 0.20 K/uL) 0.01Immature Gran % (%) 0.2Nucleated RBC % (0 /100 WBC) 0.0Immature Gran # (K/uL) 0.01Nucleated RBCs # (K/uL) 0.00UrinesUrine HCG, Qual NEGATIVERadiology ImpressionsRecent ImpressionsRADIOLOGY - FOOT COMP MINIMUM 3 VWS RT 08/06 0425 Report Impression - Status: SIGNED Entered: 01/01/2017445IMPRESSION:No acute osseous abnormality.Impression By: VIDA Diaz M.D.RADIOLOGY - PORTABLE CHEST XRAY 01/01 425 Report Impression - Status: SIGNED Entered: 01/01/2017444IMPRESSION:No acute cardiopulmonary process.Impression By: VIDA Diaz M.D.EKG InterpretationSinus rhythm at 61 bpm. ND 138. QRS 94. QTc 398. There is normal axis. No acute injurypatterns.Resident AttestationDid you see this patient with a resident?( x ) No( ) Yes. I personally saw and examined the patient. I have reviewed and agree with theresidents findings, including all diagnostic interpretations and treatment plans aswritten unless documented otherwise in my personal note. I was present for the keyportions of any procedures performed and the inclusive time noted for any critical carestatement.DepartureClin ical ImpressionClinical ImpressionPrimary Impression:Chest pain, non-cardiacSecondary Impressions:Foot painQualifiers:Laterality:r ightQualified Code:M79.671 - Pain in right footSpirjasengeminiNikko Antonia DO Signature on File 01/01/17 0526 Normal [facility] EKGon 01-01-2017 EKG This is a preliminar y report only, as the practitioner review and authentication has not occurred.Acquired on 01/01/2017 0422Vent. Rate : 061 BPM Atrial Rate : 061 BPMP-R Int : 138 ms QRS Dur : 094 msQT Int : 396 ms P-R-T Axes : 037 082 066 degreesQTc Int : 398 msNormal sinus rhythmNormal ECGNo previous ECGs availableReferred By: Signed by:[id number] 2016E/S: [facility],[id number] [place] [address] [id number] 97[facility] CenterNikko barajas REPORT Normal [facility] EKG Acquired on 01/02/20 17 0422Vent. Rate : 061 BPM Atrial Rate : 061 BPMP-R Int : 138 ms QRS Dur : 094 msQT Int : 396 ms P-R-T Axes : 037 082 066 degreesQTc Int : 398 msNormal sinus rhythmNormal ECGNo previous ECGs availableConfirmed by MATT RODRIGUEZ ([id number]) on 01/01/2017 2:31:19 PMReferred By: Signed by:MATT [id number] 2016E/S: [facility],[id number] [place] [address] [id number] 97[facility] CenterNikko barajas REPORT Normal [facility] FOOT COMP MINIMUM 3 VWS RTon 01-01-2017 FOOT COMP MINIMUM 3 VWS RT STUDY:FOOT COMP MINIMUM 3 VWS RT; 01/01/2017 4:41 amINDICATION:R foot pain.COMPARISON:None.ACCESS ION NUMBER(S):[id number] [id number] CLINICIAN:Nikko NajeraFINDINGS:No acute fracture or malalignment. No osseous destruction orperiosteal bone formation. Soft tissues are within normal limits.IMPRESSION:No acute osseous abnormality. Normal [facility] GLOMERULAR FILTRATION RATE E STon 01-01-2017 eGFR (non-black) mL/min/{1.73_m2} Normal > 60 [facility] Comment on above: Performed By: #### L CMP, LGFRP ####[facility] [address] [place] [address] IF AMER > 90 Normal > 60 [facility] Comment on above: Result Comment: Effe ctive 10/22/14:CKD-EPI equation / based on IDMS traceable creatinine.Continue to use the CREAT CLR-DOSE (Cockgroft-Gault)value for determining medication dose. Performed By: #### L CMP, LGFRP ####[facility] [address] [place] [address] PORTABLE CHEST XRAYon 2016 PORTABLE CHEST XRAY STUDY:PORTABLE CHEST XRAY; 01/01/2017 4:41 amINDICATION:R side chest pain.COMPARISON:None.ACCESS ION NUMBER(S):[id number] RYANSHANON CLINICIAN:Nikko Hernandez:Patient is rotated.CARDIOMEDIASTINAL SILHOUETTE:Cardiomediastina l silhouette is normal in size and configuration.LUNGS:No pulmonary consolidation, pleural effusion or pneumothorax.ABDOMEN:No remarkable upper abdominal findings.BONES:Right cervical rib noted.IMPRESSION:No acute cardiopulmonary process. Normal [facility] PREG URINE QUALon 01-01-2017 UR HCG QUAL Negative Normal [facility] Comment on above: Performed By: #### L UPREG ####[facility] [address] [place] [address] PROTIMEon 01-01-2017 INR Coag RelTime (PPP) 1.10 {INR} Normal [facility] Comment on above: Result Comment: * NO TE: INR therapeutic range of 2.0 - 3.0 is recommended for prophylaxis to prevent embolism, venous thrombosis, pulmonary embolism, and myocardial infarction. INR therapeutic range of 2.5 - 3.5 is recommended for patients with mechanical heart valves. * Performed By: #### L PT, LDIMERQ ####[facility] [address] [place] [address] PT SEC 12.5 seconds Normal 9.8-12.7 [facility] Comment on above: Performed By: #### L PT, LDIMERQ ####[facility] [address] [place] [address] TROPONIN QUANTon 01-01-2017 Troponin I.cardiac mass conc ng/mL Normal <0.04 [facility] Comment on above: Result Comment: Risk Stratification: <0.04 ng/mL NORMAL 0.04- 0.50 ng/mL Increased risk of adverse clinical events >0.50 ng/mL Suggestive of AMINote: Results should always be evaluated in the context of the patient's symptoms, signs and clinical evaluation. Performed By: #### L CBCD ####[facility] [address] [place] [address] No Panel Information [facility] Vital Signs Date Time Vital Sign Value Performing Clinician Facility 04-24-2024 14:01-0500 Body height 162.6 cm Shashi Fletcher MD Work Phone: [facility] 04-24-2024 14:01-0500 Body mass index (BMI) [Ratio] 30.55 kg/m2 Shashi Fletcher MD Work Phone: [facility] 04-24-2024 14:01-0500 Body temperature 98.2 [degF] Shashi Fletcher MD Work Phone: [facility] 04-24-2024 14:01-0500 Body weight 80.74 kg Shashi Fletcher MD Work Phone: [facility] 04-24-2024 14:01-0500 Diastolic blood pressure 68 mm[Hg] Shashi Fletcher MD Work Phone: [facility] 04-24-2024 14:01-0500 Heart rate 82 /min Shashi Fletcher MD Work Phone: [facility] 04-24-2024 14:01-0500 Systolic blood pressure 120 mm[Hg] Shashi Fletcher MD Work Phone: [facility] 03-31-2024 12:42-0500 Body height 165.1 cm [place] 03-31-2024 12:42-0500 Body mass index (BMI) [Ratio] 28.9 kg/m2 [facility] 03-31-2024 12:42-0500 Body temperature 98.2 [degF] [facility] 03-31-2024 12:42-0500 Body weight 78.92 kg [place] 03-31-2024 12:42-0500 Diastolic blood pressure 70 mm[Hg] [facility] 03-31-2024 12:42-0500 Heart rate 79 /min [place] 03-31-2024 12:42-0500 Respiratory rate 18 /min [facility] 03-31-2024 12:42-0500 SaO2% (BldA) [Mass fraction] 98 % [facility] 03-31-2024 12:42-0500 Systolic blood pressure 132 mm[Hg] [facility] 02-09-2024 16:04-0400 Body height 165.1 cm [place] 02-09-2024 16:04-0400 Body mass index (BMI) [Ratio] 29.5 kg/m2 [facility] 02-09-2024 16:04-0400 Body temperature 98.2 [degF] [facility] 02-09-2024 16:04-0400 Body weight 80.45 kg [place] 02-09-2024 16:04-0400 Diastolic blood pressure 70 mm[Hg] [facility] 02-09-2024 16:04-0400 Heart rate 61 /min [place] 02-09-2024 16:04-0400 Respiratory rate 18 /min [facility] 02-09-2024 16:04-0400 SaO2% (BldA) [Mass fraction] 98 % [facility] 02-09-2024 16:04-0400 Systolic blood pressure 135 mm[Hg] [facility] 12-23-2023 21:19-0400 Heart rate 75 /min Kaylinn Dokken [facility] 12-23-2023 21:19-0400 Respiratory rate 16 /min Kaylinn Dokken [facility] 12-23-2023 21:19-0400 SaO2% (BldA) [Mass fraction] 96 % [address] Dokken [facility] 12-23-2023 19:19-0400 Body temperature 98.24 [degF] Rickie Connelly [facility] 12-23-2023 19:19-0400 Diastolic blood pressure 77 mm[Hg] Rickie Connelly [facility] 12-23-2023 19:19-0400 Heart rate 72 /min Rickie Connelly [facility] 12-23-2023 19:19-0400 Respiratory rate 16 /min Rickie Connelly [facility] 12-23-2023 19:19-0400 SaO2% (BldA) [Mass fraction] 99 % Rickie Connelly [facility] 12-23-2023 19:19-0400 Systolic blood pressure 133 mm[Hg] Rickie Connelly [facility] 11-06-2023 13:18-0400 Body mass index (BMI) [Ratio] 29.7 kg/m2 Meño Retana MD Work Phone: [facility] 11-06-2023 13:18-0400 Body weight 78.47 kg Meño Retana MD Work Phone: [facility] 11-06-2023 13:18-0400 Diastolic blood pressure 70 mm[Hg] Meño Retana MD Work Phone: [facility] 11-06-2023 13:18-0400 Systolic blood pressure 102 mm[Hg] Meño Retana MD Work Phone: [facility] 04-19-2023 14:05-0500 Body height 165.1 cm Edjudith Wise DO Work Phone: [facility] 04-19-2023 14:05-0500 Body mass index (BMI) [Ratio] 29.45 kg/m2 Edjudith Melendrezft DO Work Phone: [facility] 04-19-2023 14:05-0500 Body temperature 97.59 [degF] Edward Craft DO Work Phone: [facility] 04-19-2023 14:05-0500 Body weight 80.29 kg Edward Craft DO Work Phone: [facility] 04-19-2023 14:05-0500 Diastolic blood pressure 76 mm[Hg] Edward Craft DO Work Phone: [facility] 04-19-2023 14:05-0500 Heart rate 75 /min Edward Craft DO Work Phone: [facility] 04-19-2023 14:05-0500 Systolic blood pressure 120 mm[Hg] Edward Craft DO Work Phone: [facility] 02-22-2023 14:39-0400 Body height 165.1 cm Edward A Craft Work Phone: [facility] DO Work Phone: 02-22-2023 14:39-0400 Body mass index (BMI) [Ratio] 28.62 kg/m2 Edward A Craft Work Phone: [facility] DO Work Phone: 02-22-2023 14:39-0400 Body surface area Derived from formula 1.86 m2 Edward A Craft Work Phone: [facility] DO Work Phone: 02-22-2023 14:39-0400 Body temperature 97.4 [degF] Edward A Craft Work Phone: [facility] DO Work Phone: 02-22-2023 14:39-0400 Body weight 78.02 kg Edward A Craft Work Phone[facility] Work Phone: 02-22-2023 14:39-0400 Diastolic blood pressure 70 mm[Hg] Edward A Craft Work Phone: [facility] DO Work Phone: 02-22-2023 14:39-0400 Heart rate 74 /min Edward A Craft Work Phone: [facility] DO Work Phone: 02-22-2023 14:39-0400 Systolic blood pressure 116 mm[Hg] Edward A Craft Work Phone: [facility] DO Work Phone: 01-16-2023 13:36-0400 Body height 165.1 cm Edward A Craft Work Phone: [facility] DO Work Phone: 01-16-2023 13:36-0400 Body mass index (BMI) [Ratio] 28.96 kg/m2 Edward A Craft Work Phone: [facility] DO Work Phone: 01-16-2023 13:36-0400 Body mass index (BMI) [Ratio] Patient Reason Not Done Edward A Craft Work Phone: [facility] DO Work Phone: 01-16-2023 13:36-0400 Body surface area Derived from formula 1.86 m2 Edward A Craft Work Phone: [facility] DO Work Phone: 01-16-2023 13:36-0400 Body temperature 98 [degF] Edward A Craft Work Phone: [facility] DO Work Phone: 01-16-2023 13:36-0400 Body weight 78.93 kg Edward A Craft Work Phone: [facility] DO Work Phone: 01-16-2023 13:36-0400 Diastolic blood pressure 80 mm[Hg] Edward A Craft Work Phone: [facility] DO Work Phone: 01-16-2023 13:36-0400 Heart rate 110 /min Edward A Craft Work Phone: [facility] DO Work Phone: 01-16-2023 13:36-0400 Systolic blood pressure 126 mm[Hg] Edward A Craft Work Phone: [facility] DO Work Phone: 08-29-2022 14:32-0400 Body height 165.1 cm Edward A Craft Work Phone: [facility] DO Work Phone: 08-29-2022 14:32-0400 Body mass index (BMI) [Ratio] 29.29 kg/m2 Edward A Craft Work Phone: [facility] DO Work Phone: 08-29-2022 14:32-0400 Body surface area Derived from formula 1.87 m2 Edward A Craft Work Phone: [facility] DO Work Phone: 08-29-2022 14:32-0400 Body temperature 97.3 [degF] Edward A Craft Work Phone: [facility] DO Work Phone: 08-29-2022 14:32-0400 Body weight 79.83 kg Edward A Craft Work Phone: [facility] DO Work Phone: 08-29-2022 14:32-0400 Diastolic blood pressure 64 mm[Hg] Edward A Craft Work Phone: [facility] DO Work Phone: 08-29-2022 14:32-0400 Heart rate 90 /min Edward A Craft Work Phone: [facility] DO Work Phone: 08-29-2022 14:32-0400 Systolic blood pressure 108 mm[Hg] Edward A Craft Work Phone: [facility] DO Work Phone: 08-26-2022 12:07-0400 Body height 162.6 cm Esther Villanueva DO Work Phone: [employer] 08-26-2022 12:07-0400 Body mass index (BMI) [Ratio] 29.18 kg/m2 Esther Villanueva DO Work Phone: [employer] 08-26-2022 12:07-0400 Body temperature 98.91 [degF] Esther Villanueva DO Work Phone: [employer] 08-26-2022 12:07-0400 Body weight 77.11 kg Esther Villanueva DO Work Phone: [employer] 08-26-2022 12:07-0400 Diastolic blood pressure 60 mm[Hg] Esther Villanueva DO Work Phone: [employer] 08-26-2022 12:07-0400 Heart rate 99 /min Esther Villanueva DO Work Phone: [employer] 08-26-2022 12:07-0400 Respiratory rate 18 /min Esther Villanueva DO Work Phone: [employer] 08-26-2022 12:07-0400 SaO2% (BldA) [Mass fraction] 97 % Esther Villanueva DO Work Phone: [employer] 08-26-2022 12:07-0400 Systolic blood pressure 129 mm[Hg] Esther Villanueva DO Work Phone: [employer] 08-20-2022 19:21-0400 Diastolic blood pressure 67 mm[Hg] Shaina Salcedo MD Work Phone: [employer] 08-20-2022 19:21-0400 Heart rate 74 /min Shaina Salcedo MD Work Phone: [employer] 08-20-2022 19:21-0400 Respiratory rate 16 /min Shaina Salcedo MD Work Phone: [employer] 08-20-2022 19:21-0400 SaO2% (BldA) [Mass fraction] 100 % Shaina Salcedo MD Work Phone: [employer] 08-20-2022 19:21-0400 Systolic blood pressure 112 mm[Hg] Shaina Salcedo MD Work Phone: [employer] 08-20-2022 16:55-0400 Body height 162.6 cm Shaina Salcedo MD Work Phone: [employer] 08-20-2022 16:55-0400 Body mass index (BMI) [Ratio] 29.18 kg/m2 Shaina Salcedo MD Work Phone: [employer] 08-20-2022 16:55-0400 Body temperature 98.4 [degF] Shaina Salcedo MD Work Phone: [employer] 08-20-2022 16:55-0400 Body weight 77.11 kg Shaina Salcedo MD Work Phone: [employer] 08-12-2022 16:45-0400 Diastolic blood pressure 62 mm[Hg] Pascual Zuniga MD Work Phone: [employer] 08-12-2022 16:45-0400 Heart rate 87 /min Pascual Zuniga MD Work Phone: [employer] 08-12-2022 16:45-0400 Respiratory rate 16 /min [facility] 08-12-2022 16:45-0400 SaO2% (BldA) [Mass fraction] 99 % Pascual Zuniga MD Work Phone: [employer] [facility] 08-12-2022 16:45-0400 Systolic blood pressure 117 mm[Hg] Pascual Zuniga MD Work Phone: [employer] 08-12-2022 13:45-0400 Body temperature 97.11 [degF] Pascual Zuniga MD Work Phone: [employer] 08-12-2022 08:45-0400 Body height 162.6 cm Pascual Zuniga MD Work Phone: [employer] 08-12-2022 08:45-0400 Body mass index (BMI) [Ratio] 29.52 kg/m2 Pascual [facility]iga MD [facility] 08-12-2022 08:45-0400 Body weight 78.02 kg Pascual Zuniga MD Work Phone: [facility] 07-15-2022 01:12-0500 Diastolic blood pressure 77 mm[Hg] Edjudith Craft Other Phone: [facility] 07-15-2022 01:12-0500 Heart rate 74 /min Edward Craft Other Phone: [facility] 07-15-2022 01:12-0500 Respiratory rate 16 /min Edjudith Melendrezft Other Phone: [facility] 07-15-2022 01:12-0500 SaO2% (BldA) [Mass fraction] 99 % Edward Craft Other Phone: [facility] 07-15-2022 01:12-0500 Systolic blood pressure 138 mm[Hg] Edward Craft Other Phone: [facility] 07-14-2022 22:06-0500 Body height 165.1 cm Edward Craft Other Phone: [facility] 07-14-2022 22:06-0500 Body temperature 97.52 [degF] Edward Craft Other Phone: [facility] 07-14-2022 22:06-0500 Body weight 77 kg Edward Craft Other Phone: [facility] 06-28-2022 08:52-0500 Body weight 80.15 kg Cathy Moran MD Work Phone: [facility] 06-28-2022 08:52-0500 Diastolic blood pressure 51 mm[Hg] Cathy Moran MD Work Phone: [facility] 06-28-2022 08:52-0500 Heart rate 62 /min Cathy Moran MD Work Phone: [facility] 06-28-2022 08:52-0500 SaO2% (BldA) [Mass fraction] 100 % Cathy Moran MD Work Phone: [facility] 06-28-2022 08:52-0500 Systolic blood pressure 125 mm[Hg] Cathy Moran MD Work Phone: [facility] 05-19-2022 13:06-0500 Body height 165.1 cm Edward A Craft Work Phone: [facility] Work Phone: 05-19-2022 13:06-0500 Body mass index (BMI) [Ratio] 28.96 kg/m2 Edward A Craft Work Phone: [facility] DO Work Phone: 05-19-2022 13:06-0500 Body surface area Derived from formula 1.86 m2 Edward A Craft Work Phone: [facility] DO Work Phone: 05-19-2022 13:06-0500 Body temperature 97.8 [degF] Edward A Craft Work Phone: [facility] DO Work Phone: 05-19-2022 13:06-0500 Body weight 78.93 kg Edward A Craft Work Phone: [facility] DO Work Phone: 05-19-2022 13:06-0500 Diastolic blood pressure 68 mm[Hg] Edward A Craft Work Phone: [facility] DO Work Phone: 05-19-2022 13:06-0500 Heart rate 91 /min Edward A Craft Work Phone: [facility] DO Work Phone: 05-19-2022 13:06-0500 Systolic blood pressure 110 mm[Hg] Edward A Craft Work Phone: [facility] DO Work Phone: 03-09-2022 13:40-0400 Body height 162.6 cm Cathy Moran MD Work Phone: [facility] 03-09-2022 13:40-0400 Body weight 76.48 kg Cathy Moran MD Work Phone: [facility] 03-09-2022 13:40-0400 Diastolic blood pressure 60 mm[Hg] Cathy Moran MD Work Phone: [facility] 03-09-2022 13:40-0400 Heart rate 83 /min Cathy Moran MD Work Phone: [facility] 03-09-2022 13:40-0400 SaO2% (BldA) [Mass fraction] 97 % Cathy Moran MD Work Phone: [facility] 03-09-2022 13:40-0400 Systolic blood pressure 116 mm[Hg] Cathy Moran MD Work Phone: [facility] 03-06-2022 21:12-0400 Diastolic blood pressure 60 mm[Hg] Edward Craft DO Work Phone: [facility] 03-06-2022 21:12-0400 Heart rate 71 /min Edward Craft DO Work Phone: [facility] 03-06-2022 21:12-0400 Respiratory rate 16 /min Edward Craft DO Work Phone: [facility] 03-06-2022 21:12-0400 SaO2% (BldA) [Mass fraction] 99 % Edward Craft DO Work Phone: [facility] 03-06-2022 21:12-0400 Systolic blood pressure 121 mm[Hg] Edward Craft DO Work Phone: [facility] 03-06-2022 19:30-0400 Body height 162.6 cm Edward Craft DO Work Phone: [facility] 03-06-2022 19:28-0400 Body temperature 98.4 [degF] Edward Craft DO Work Phone: [facility] 01-17-2022 11:41-0400 Body height 165.1 cm Edward A Craft Work Phone: [facility] DO Work Phone: 01-17-2022 11:41-0400 Body mass index (BMI) [Ratio] 27.79 kg/m2 Edward A Craft Work Phone: [facility] DO Work Phone: 01-17-2022 11:41-0400 Body surface area Derived from formula 1.83 m2 Edward A Craft Work Phone: [facility] DO Work Phone: 01-17-2022 11:41-0400 Body temperature 98 [degF] Edward A Craft Work Phone: [facility] DO Work Phone: 01-17-2022 11:41-0400 Body weight 75.75 kg Edward A Craft Work Phone: [facility] DO Work Phone: 01-17-2022 11:41-0400 Diastolic blood pressure 66 mm[Hg] Edward A Craft Work Phone: [facility] DO Work Phone: 01-17-2022 11:41-0400 Heart rate 91 /min Edward A Craft Work Phone: [facility] DO Work Phone: 01-17-2022 11:41-0400 Systolic blood pressure 102 mm[Hg] Edward A Craft Work Phone: [facility] DO Work Phone: 01-14-2022 01:47-0400 Diastolic blood pressure 67 mm[Hg] Becka Bulgrin DO Work Phone: [facility] [employer] [facility] 01-14-2022 01:47-0400 Heart rate 75 /min Becka Bulgrin DO Work Phone: [facility] [employer] [facility] 01-14-2022 01:47-0400 Respiratory rate 16 /min Becka Bulgrin DO Work Phone: [facility] [employer] 01-14-2022 01:47-0400 SaO2% (BldA) [Mass fraction] 100 % Becka Reynaga DO [facility] [employer] 01-14-2022 01:47-0400 Systolic blood pressure 114 mm[Hg] Becka Reynaga DO Work Phone: [facility] [employer] 01-13-2022 23:10-0400 Body height 165.1 cm Becka Reynaga DO Work Phone: [facility] [employer] 01-13-2022 23:10-0400 Body mass index (BMI) [Ratio] 24.96 kg/m2 Becka Reynaga DO [facility] [employer] 01-13-2022 23:10-0400 Body temperature 98.01 [degF] Becka Reynaga DO Work Phone: [facility] [employer] 01-13-2022 23:10-0400 Body weight 68.04 kg Becka Reynaga DO Work Phone: [facility] 01-10-2022 15:28-0400 Body height 165.1 cm Edward Lingvist Work Phone: [facility] Work Phone: 01-10-2022 15:28-0400 Body mass index (BMI) [Ratio] 27.12 kg/m2 Edward A [employer] Work Phone: [facility] Work Phone: 01-10-2022 15:28-0400 Body surface area Derived from formula 1.81 m2 Edward A [employer] Work Phone: [facility] Work Phone: 01-10-2022 15:28-0400 Body weight 73.94 kg Edward A [employer] Work Phone: [facility] Work Phone: 01-10-2022 15:28-0400 Diastolic blood pressure 78 mm[Hg] Bryce Zamora Craft Work Phone: [facility] Work Phone: 01-10-2022 15:28-0400 Systolic blood pressure 120 mm[Hg] Bryce MelendrezFitly Work Phone: [facility] Work Phone: 12-08-2021 10:27-0400 Body height 165.1 cm Bryce Zamora [employer] Work Phone: [facility] Work Phone: 12-08-2021 10:27-0400 Body mass index (BMI) [Ratio] 27.12 kg/m2 Bryce MelendrezFitly Work Phone: [facility] [address] Work Phone: 12-08-2021 10:27-0400 Body surface area Derived from formula 1.81 m2 Bryce Melendrez[employer]ly Work Phone: BF[facility]qmlepfowelm[facility] [address] Work Phone: 12-08-2021 10:27-0400 Body temperature 98.2 [degF] Bryce Mel[employer]rezFitly Work Phone: PP[facility]hpjnbr[facility] [address] Work Phone: 12-08-2021 10:27-0400 Body weight 73.94 kg Bryce Zamora Craft Work Phone: QV[facility]utnvfuavtba[facility] [address] Work Phone: 12-08-2021 10:27-0400 Diastolic blood pressure 69 mm[Hg] Bryce Mel[employer]rez[employer]ly Work Phone: [facility]krrvi[facility] [address] Work Phone: 12-08-2021 10:27-0400 Heart rate 74 /min Edjudith Zamora Craft Work Phone: KF[facility]Wqhxasuvtifi[facility] [address] Work Phone: 12-08-2021 10:27-0400 Respiratory rate 18 /min Edjudith Zamora Craft Work Phone: [facility]pzurdqvsm[facility] [address] Work Phone: 12-08-2021 10:27-0400 SaO2% (BldA) [Mass fraction] 97 % Edjudith Zamora Craft Work Phone: VW[facility]Ideynovasqbx-Ge[facility] [address] Work Phone: 12-08-2021 10:27-0400 Systolic blood pressure 116 mm[Hg] Edjudith Zamora Craft Work Phone: RH[facility]xogrllzfktw-[facility] [address] Work Phone: 12-08-2021 10:27-0400 3 1 Bryce Zamora Craft Work Phone: OM-Ckpvoywrwaec-[facility] [address] Work Phone: Comment on above: [employer] 11-22-2021 13:20-0400 Body height 165.1 cm Edjudith Zamora Craft [facility] Work Phone: 11-22-2021 13:20-0400 Body mass index (BMI) [Ratio] 27.12 kg/m2 Edjudith A Craft Work Phone: [facility] Work Phone: 11-22-2021 13:20-0400 Body surface area Derived from formula 1.81 m2 Edjudith A Craft Work Phone: [facility] Work Phone: 11-22-2021 13:20-0400 Body temperature 98.5 [degF] Edward A Craft [facility] Work [facility]: 11-22-2021 13:20-0400 Body weight 73.94 kg Edward A Craft [facility] Work [facility]: 11-22-2021 13:20-0400 Diastolic blood pressure 80 mm[Hg] Edward A Craft [facility] Work [facility]: 11-22-2021 13:20-0400 Heart rate 68 /min Edward A Craft [facility] Work Phone: 11-22-2021 13:20-0400 Systolic blood pressure 110 mm[Hg] Edward A Craft [facility] Work Phone: 11-15-2021 11:55-0400 Body height 165.1 cm Edward A Craft Work Phone: [facility] DO Work Phone: 11-15-2021 11:55-0400 Body mass index (BMI) [Ratio] 26.96 kg/m2 Edward A Craft Work Phone: [facility] DO Work Phone: 11-15-2021 11:55-0400 Body surface area Derived from formula 1.81 m2 Edward A Craft Work Phone: [facility] DO Work Phone: 11-15-2021 11:55-0400 Body weight 73.48 kg Edward A Craft Work Phone: [facility] DO Work Phone: 11-15-2021 11:55-0400 Diastolic blood pressure 62 mm[Hg] Edward A Craft Work Phone: [facility] DO Work Phone: 11-15-2021 11:55-0400 Heart rate 78 /min Edward A Craft Work Phone: [facility] DO Work Phone: 11-15-2021 11:55-0400 Systolic blood pressure 102 mm[Hg] Edward A Craft Work Phone: [facility] DO Work Phone: 11-13-2021 13:19-0400 Body height 162.6 cm Edward Craft DO Work Phone: [employer] 11-13-2021 13:19-0400 Body mass index (BMI) [Ratio] 25.75 kg/m2 Edward Craft DO Work Phone: [employer] 11-13-2021 13:19-0400 Body temperature 98.29 [degF] Edward Craft DO Work Phone: [employer] 11-13-2021 13:19-0400 Body weight 68.04 kg Edward Craft DO Work Phone: [employer] 11-13-2021 13:19-0400 Diastolic blood pressure 70 mm[Hg] Edward Craft DO Work Phone: [employer] 11-13-2021 13:19-0400 Heart rate 69 /min Edward Craft DO Work Phone: [employer] 11-13-2021 13:19-0400 Respiratory rate 16 /min Edward Craft DO Work Phone: [facility] [employer] 11-13-2021 13:19-0400 SaO2% (BldA) [Mass fraction] 98 % Edward Craft DO Work Phone: [facility] [employer] 11-13-2021 13:19-0400 Systolic blood pressure 114 mm[Hg] Edward Craft DO Work Phone: [facility] 10-16-2021 10:32-0400 Body height 165.1 cm Edward A Craft Work Phone: LE-Rygiqxo-Lmrnvk Work Phone: 10-16-2021 10:32-0400 Body mass index (BMI) [Ratio] 26.22 kg/m2 Edward A Craft Work Phone: [facility]Zdsuuib-Cqivah Work Phone: 10-16-2021 10:32-0400 Body surface area Derived from formula 1.79 m2 Edward A Craft Work Phone: YB-Kecoawq-Bmqgjz Work Phone: 10-16-2021 10:32-0400 Body temperature 98 [degF] Edward A Craft Work Phone: XY-Flcovdd-Adydoo Work Phone: 10-16-2021 10:32-0400 Body weight 71.47 kg Edward A Craft Work Phone: MN-Hbtbgqf-Zkrelm Work Phone: 10-16-2021 10:32-0400 Diastolic blood pressure 66 mm[Hg] Edward A Craft Work Phone: TK-Eonmjch-Hxfyhf Work Phone: 10-16-2021 10:32-0400 Heart rate 70 /min Edward A Craft Work Phone: LM-Wqjiqph-Exvegi Work Phone: 10-16-2021 10:32-0400 Respiratory rate 16 /min Edward A Craft Work Phone: WN-Potvfzb-Rlvren Work Phone: 10-16-2021 10:32-0400 Systolic blood pressure 130 mm[Hg] Edward A Craft Work Phone: DP-Eyvjqvw-Qxhecl Work Phone: 09-25-2021 15:28-0400 Body height 165.1 cm Edward A Craft Work Phone: [facility] Work Phone: 09-25-2021 15:28-0400 Body mass index (BMI) [Ratio] 26.17 kg/m2 Edward A Craft Work Phone: [facility] Work Phone: 09-25-2021 15:28-0400 Body surface area Derived from formula 1.79 m2 Edward A Craft Work Phone: [facility] Work Phone: 09-25-2021 15:28-0400 Body temperature 97.9 [degF] Edward A Craft Work Phone: [facility] Work Phone: 09-25-2021 15:28-0400 Body weight 71.33 kg Edward A Craft Work Phone: [facility] Work Phone: 09-25-2021 15:28-0400 Diastolic blood pressure 70 mm[Hg] Edward A Craft Work Phone: [facility] Work Phone: 09-25-2021 15:28-0400 Heart rate 66 /min Edward A Craft Work Phone: [facility] Work Phone: 09-25-2021 15:28-0400 Respiratory rate 16 /min Edward A Craft Work Phone: [facility] Work Phone: 09-25-2021 15:28-0400 Systolic blood pressure 122 mm[Hg] Edward A Craft Work Phone: [facility] Work Phone: 09-20-2021 14:37-0400 Body height 165.1 cm Edward A Craft Work Phone: [facility] Work Phone: 09-20-2021 14:37-0400 Body mass index (BMI) [Ratio] 26.01 kg/m2 Edward A Craft Work Phone: [facility] Work Phone: 09-20-2021 14:37-0400 Body surface area Derived from formula 1.78 m2 Edward A Craft Work Phone: [facility] Work Phone: 09-20-2021 14:37-0400 Body weight 70.9 kg Edward A Craft Work Phone: [facility] Work Phone: 09-20-2021 14:37-0400 Diastolic blood pressure 70 mm[Hg] Edward A Craft Work Phone: [facility] Work Phone: 09-20-2021 14:37-0400 Systolic blood pressure 132 mm[Hg] Edward A Craft Work Phone: [facility] Work Phone: 08-31-2021 15:59-0400 Body height 165.1 cm Edward A Craft Work Phone: [facility] Work Phone: 08-31-2021 15:59-0400 Body mass index (BMI) [Ratio] 25.71 kg/m2 Edward A Craft Work Phone: [facility] Work Phone: 08-31-2021 15:59-0400 Body surface area Derived from formula 1.77 m2 Edward A Craft Work Phone: [facility] Work Phone: 08-31-2021 15:59-0400 Body weight 70.08 kg Edward A Craft Work Phone: [facility] Work Phone: 08-31-2021 15:59-0400 Diastolic blood pressure 68 mm[Hg] Edward A Craft Work Phone: [facility] Work Phone: 08-31-2021 15:59-0400 Systolic blood pressure 110 mm[Hg] Edward A Craft Work Phone: [facility] Work Phone: 08-25-2021 14:38-0400 Body height 165.1 cm Edward A Craft Work Phone: [facility] DO Work Phone: 08-25-2021 14:38-0400 Body mass index (BMI) [Ratio] 25.46 kg/m2 Edward A Craft Work Phone: [facility] DO Work Phone: 08-25-2021 14:38-0400 Body surface area Derived from formula 1.77 m2 Edward A Craft Work Phone: [facility] DO Work Phone: 08-25-2021 14:38-0400 Body temperature 98 [degF] Edward A Craft Work Phone: [facility] DO Work Phone: 08-25-2021 14:38-0400 Body weight 69.4 kg Edward A Craft Work Phone: [facility] DO Work Phone: 08-25-2021 14:38-0400 Diastolic blood pressure 80 mm[Hg] Edward A Craft Work Phone: [facility] DO Work Phone: 08-25-2021 14:38-0400 Heart rate 80 /min Edward A Craft Work Phone: [facility] DO Work Phone: 08-25-2021 14:38-0400 Systolic blood pressure 120 mm[Hg] Edward A Craft Work Phone: [facility] DO Work Phone: 08-14-2021 20:44-0400 Diastolic blood pressure 68 mm[Hg] Edward Craft Other Phone: [facility] 08-14-2021 20:44-0400 Heart rate 60 /min Edward Craft Other Phone: [facility] 08-14-2021 20:44-0400 Respiratory rate 18 /min Edward Craft Other Phone: [facility] 08-14-2021 20:44-0400 SaO2% (BldA) [Mass fraction] 98 % Edward Craft Other Phone: [facility] 08-14-2021 20:44-0400 Systolic blood pressure 107 mm[Hg] Edward Craft Other Phone: [facility] 08-14-2021 19:22-0400 Body height 162.5 cm Edward Craft Other Phone: [facility] 08-14-2021 19:22-0400 Body temperature 98.24 [degF] Edward Craft Other Phone: [facility] 08-14-2021 19:22-0400 Body weight 68.2 kg Bryce Wise Other Phone: [facility] 08-03-2021 00:01-0500 Body height 162.6 cm Boogie Gabriel MD Work Phone: [facility] 08-03-2021 00:00-0500 Body temperature 98.4 [degF] Boogie Gabriel MD Work Phone: [facility] 08-03-2021 00:00-0500 Diastolic blood pressure 69 mm[Hg] Boogie Gabriel MD Work Phone: [facility] 08-03-2021 00:00-0500 Heart rate 77 /min Boogie Gabriel MD Work Phone: [facility] 08-03-2021 00:00-0500 Respiratory rate 18 /min Boogie Gabriel MD Work Phone: [facility] 08-03-2021 00:00-0500 SaO2% (BldA) [Mass fraction] 99 % Boogie Gabriel MD Work Phone: [facility] 08-03-2021 00:00-0500 Systolic blood pressure 152 mm[Hg] Boogie Gabriel MD Work Phone: [facility] 07-12-2021 12:24-0500 Body height 165.1 cm Edjudith Noah Wise Work Phone: [facility] DO Work Phone: 07-12-2021 12:24-0500 Body mass index (BMI) [Ratio] 25.36 kg/m2 Edjudith Wise Work Phone: [facility] DO Work Phone: 07-12-2021 12:24-0500 Body surface area Derived from formula 1.76 m2 Edjudith Noah Wise Work Phone: [facility] DO Work Phone: 07-12-2021 12:24-0500 Body temperature 98.2 [degF] Edward A Craft Work Phone: [facility] DO Work Phone: 07-12-2021 12:24-0500 Body weight 69.12 kg Edward A Craft Work Phone: [facility] DO Work Phone: 07-12-2021 12:24-0500 Diastolic blood pressure 80 mm[Hg] Edward A Craft Work Phone: [facility] DO Work Phone: 07-12-2021 12:24-0500 Heart rate 109 /min Edward A Craft Work Phone: [facility] DO Work Phone: 07-12-2021 12:24-0500 Systolic blood pressure 120 mm[Hg] Edward A Craft Work Phone: [facility] DO Work Phone: 06-15-2021 10:43-0500 Body height 165.1 cm Edward A Craft Work Phone: [facility] DO Work Phone: 06-15-2021 10:43-0500 Body mass index (BMI) [Ratio] 25.46 kg/m2 Edward A Craft Work Phone: [facility] DO Work Phone: 06-15-2021 10:43-0500 Body surface area Derived from formula 1.77 m2 Edward A Craft Work Phone: [facility] DO Work Phone: 06-15-2021 10:43-0500 Body temperature 98 [degF] Edward A Craft Work Phone: [facility] DO Work Phone: 06-15-2021 10:43-0500 Body weight 69.4 kg Edward A Craft Work Phone: [facility] DO Work Phone: 06-15-2021 10:43-0500 Diastolic blood pressure 88 mm[Hg] Edward A Craft Work Phone: [facility] DO Work Phone: 06-15-2021 10:43-0500 Heart rate 81 /min Edward A Craft Work Phone: [facility] DO Work Phone: 06-15-2021 10:43-0500 Systolic blood pressure 120 mm[Hg] Edward A Craft Work Phone: [facility] DO Work Phone: 05-07-2021 22:17-0500 Body height 162.5 cm Edward Craft Other Phone: [facility] 05-07-2021 22:17-0500 Body temperature 98.6 [degF] Edward Craft Other Phone: [facility] 05-07-2021 22:17-0500 Body weight 64 kg Edward Craft Other Phone: [facility] 05-07-2021 22:17-0500 Diastolic blood pressure 87 mm[Hg] Edward Craft Other Phone: [facility] 05-07-2021 22:17-0500 Heart rate 65 /min Edward Craft Other Phone: [facility] 05-07-2021 22:17-0500 Respiratory rate 16 /min Edward Craft Other Phone: [facility] 05-07-2021 22:17-0500 SaO2% (BldA) [Mass fraction] 100 % Edward Craft Other Phone: [facility] 05-07-2021 22:17-0500 Systolic blood pressure 136 mm[Hg] Edward Craft Other Phone: [facility] 03-18-2021 17:29-0400 Body height 162.5 cm Edward Craft Other Phone: [facility] 03-18-2021 17:29-0400 Body temperature 97.34 [degF] Edward Craft Other Phone: [facility] 03-18-2021 17:29-0400 Body weight 68 kg Edward Craft Other Phone: [facility] 03-18-2021 17:29-0400 Diastolic blood pressure 81 mm[Hg] Edward Craft Other Phone: [facility] 03-18-2021 17:29-0400 Heart rate 79 /min Edward Craft Other Phone: [facility] 03-18-2021 17:29-0400 Respiratory rate 18 /min Edward Craft Other Phone: [facility] 03-18-2021 17:29-0400 SaO2% (BldA) [Mass fraction] 98 % Edward Craft Other Phone: [facility] 03-18-2021 17:29-0400 Systolic blood pressure 131 mm[Hg] Edward Craft Other Phone: [facility] 12-23-2020 03:35-0400 Diastolic blood pressure 55 mm[Hg] Edward Craft Other Phone: [facility] 12-23-2020 03:35-0400 Heart rate 66 /min Edward Craft Other Phone: [facility] 12-23-2020 03:35-0400 Respiratory rate 16 /min Edward Craft Other Phone: [facility] 12-23-2020 03:35-0400 SaO2% (BldA) [Mass fraction] 97 % Edward Craft Other Phone: [facility] 12-23-2020 03:35-0400 Systolic blood pressure 122 mm[Hg] Edward Craft Other Phone: [facility] 12-19-2020 06:29-0400 Body height 162.5 cm Edward Craft Other Phone: [facility] 12-19-2020 06:29-0400 Body temperature 97.88 [degF] Edward Craft Other Phone: [facility] 12-19-2020 06:29-0400 Body weight 68.2 kg Edward Craft Other Phone: [facility] 12-19-2020 06:29-0400 Diastolic blood pressure 86 mm[Hg] Edward Craft Other Phone: [facility] 12-19-2020 06:29-0400 Heart rate 73 /min Edward Craft Other Phone: [facility] 12-19-2020 06:29-0400 Respiratory rate 18 /min Edward Craft Other Phone: [facility] 12-19-2020 06:29-0400 SaO2% (BldA) [Mass fraction] 96 % Edward Craft Other Phone: [facility] 12-19-2020 06:29-0400 Systolic blood pressure 142 mm[Hg] Edward Craft Other Phone: [facility] 12-11-2020 00:40-0400 Body temperature 98.71 [degF] Thomas Phillips MD Work Phone: [facility] 12-11-2020 00:40-0400 Diastolic blood pressure 83 mm[Hg] Thomas Phillips MD Work Phone: [facility] 12-11-2020 00:40-0400 Heart rate 74 /min Thomas Phillips MD Work Phone: [facility] 12-11-2020 00:40-0400 Respiratory rate 16 /min Thomas Phillips MD Work Phone: [facility] 12-11-2020 00:40-0400 SaO2% (BldA) [Mass fraction] 99 % Thomas Phillips MD Work Phone: [facility] 12-11-2020 00:40-0400 Systolic blood pressure 126 mm[Hg] Thomas hPillips MD Work Phone: [facility] 10-27-2020 05:48-0400 Heart rate 63 /min Ce Hastings MD Work Phone: [facility] 10-27-2020 05:30-0400 Diastolic blood pressure 60 mm[Hg] Ce Hastings MD Work Phone: [facility] 10-27-2020 05:30-0400 SaO2% (BldA) [Mass fraction] 99 % Ce Hastings MD Work Phone: [facility] 10-27-2020 05:30-0400 Systolic blood pressure 117 mm[Hg] Ce Hastings MD Work Phone: [facility] 10-27-2020 02:17-0400 Body height 162.6 cm Ce Hastings MD Work Phone: [facility] 10-27-2020 02:17-0400 Body mass index (BMI) [Ratio] 25.23 kg/m2 Ce Hastings MD Work Phone: [facility] 10-27-2020 02:17-0400 Body temperature 98.49 [degF] Ce Hastings MD Work Phone: [facility] 10-27-2020 02:17-0400 Body weight 66.68 kg Ce Hastings MD Work Phone: [facility] 10-27-2020 02:17-0400 Respiratory rate 16 /min Ce Hastings MD Work Phone: [facility] 09-23-2020 14:02-0400 Body height 162.6 cm Tomy Lomax MD Work Phone: [facility] 09-23-2020 14:02-0400 Body mass index (BMI) [Ratio] 25.2 kg/m2 Tomy Lomax MD Work Phone: [facility] 09-23-2020 14:02-0400 Body weight 66.59 kg Tomy Lomax MD Work Phone: [facility] 09-23-2020 14:02-0400 Diastolic blood pressure 63 mm[Hg] Tomy Lomax MD Work Phone: [facility] 09-23-2020 14:02-0400 Heart rate 60 /min Tomy Lomax MD Work Phone: [facility] 09-23-2020 14:02-0400 SaO2% (BldA) [Mass fraction] 97 % Tomy Lomax MD Work Phone: [facility] 09-23-2020 14:02-0400 Systolic blood pressure 104 mm[Hg] Tomy Lomax MD Work Phone: [facility] 09-22-2020 01:00-0400 Diastolic blood pressure 71 mm[Hg] Manuel Trujillo MD Work Phone: [facility] 09-22-2020 01:00-0400 Heart rate 43 /min Manuel Trujillo MD Work Phone: [facility] 09-22-2020 01:00-0400 Respiratory rate 16 /min Manuel Trujillo MD Work Phone: [facility] 09-22-2020 01:00-0400 SaO2% (BldA) [Mass fraction] 98 % Manuel Trujillo MD Work Phone: [facility] 09-22-2020 01:00-0400 Systolic blood pressure 113 mm[Hg] Manuel Trujillo MD Work Phone: [facility] 09-21-2020 21:48-0400 Body height 162.6 cm Manuel Trujillo MD Work Phone: [facility] 09-21-2020 21:48-0400 Body mass index (BMI) [Ratio] 25.23 kg/m2 Manuel Trujillo MD Work Phone: [facility] 09-21-2020 21:48-0400 Body weight 66.68 kg Manuel Trujillo MD Work Phone: [facility] 09-21-2020 21:38-0400 Body temperature 98.1 [degF] Manuel Trujillo MD Work Phone: [facility] 09-03-2020 13:26-0400 BMI (Body Mass Index) 25.23 kg/m2 [facility] 09-03-2020 13:26-0400 Body [facility] 66.68 [facility] 09-03-2020 13:26-0400 BP Diastolic 70 mm[Hg] [facility] 09-03-2020 13:26-0400 BP Systolic 109 mm[Hg] [facility] 09-03-2020 13:26-0400 Height 162[facility] [facility] [facility] 09-03-2020 13:26-0400 Pulse (Heart Rate) 51 /min [facility] 09-03-2020 13:26-0400 Pulse Oximetry 97 % [facility] 09-03-2020 13:26-0400 Respiratory Rate 15 /min [facility] 08-20-2020 10:47-0400 BP Diastolic 86 mm[Hg] [facility] 08-20-2020 10:47-0400 BP Systolic 132 mm[Hg] [facility] 08-20-2020 10:47-0400 Pulse (Heart Rate) 85 /min [facility] 08-20-2020 10:47-0400 Pulse Oximetry 96 % [facility]omy [facility] 08-20-2020 10:47-0400 Respiratory Rate 16 /min [facility] 08-20-2020 09:30-0400 Body Temperature 96.49 [degF] [facility] 08-20-2020 06:26-0400 BMI (Body Mass Index) 26.15 kg/m2 [facility] 08-20-2020 06:26-0400 Body weight 69.1 kg [facility] 08-20-2020 06:26-0400 Height 162.6 cm [facility] 08-19-2020 04:30-0400 BP Diastolic 57 mm[Hg] [employer] Phone: 08-19-2020 04:30-0400 BP Systolic 111 mm[Hg] [employer] Work Phone: 08-19-2020 04:30-0400 Pulse (Heart Rate) 50 /min [employer] Phone: 08-19-2020 04:30-0400 Pulse Oximetry 98 % [employer] Phone: 08-19-2020 04:30-0400 Respiratory Rate 18 /min [employer] Phone: 08-19-2020 01:39-0400 BMI (Body Mass Index) 25.92 kg/m2 [employer] Phone: 08-19-2020 01:39-0400 Body Temperature 98.29 [degF] [employer] Phone: 08-19-2020 01:39-0400 Body weight 68.49 kg [employer] Phone: 08-19-2020 01:39-0400 Height 162.6 cm [employer] Phone: 08-02-2020 11:03-0500 Body Temperature 97.7 [degF] [facility] 08-02-2020 11:03-0500 BP Diastolic 58 mm[Hg] [facility] 08-02-2020 11:03-0500 BP Systolic 108 mm[Hg] [facility] 08-02-2020 11:03-0500 Pulse (Heart Rate) 59 /min [facility] 08-02-2020 11:03-0500 Pulse Oximetry 99 % [facility] 08-02-2020 11:03-0500 Respiratory Rate 14 /min [facility] 08-01-2020 20:08-0500 BMI (Body Mass Index) 26.95 kg/m2 [facility] 08-01-2020 20:08-0500 Body weight 71.22 kg [facility] 08-01-2020 20:08-0500 Height 162.6 cm [facility] 07-27-2020 09:43-0500 BMI (Body Mass Index) 26.95 kg/m2 [facility] 07-27-2020 09:43-0500 Body weight 71.22 [facility] 07-27-2020 09:43-0500 BP Diastolic 70 mm[Hg] [facility] 07-27-2020 09:43-0500 BP Systolic 101 mm[Hg] [facility] 07-27-2020 09:43-0500 Height 162.6 cm [facility] 07-27-2020 09:43-0500 Pulse (Heart Rate) 86 /min [facility] 07-27-2020 09:43-0500 Pulse Oximetry 95 % [facility] 07-27-2020 09:43-0500 Respiratory Rate 14 /min [facility] 07-21-2020 12:37-0500 BP Diastolic 53 mm[Hg] Radu Desouza [facility] 07-21-2020 12:37-0500 BP Systolic 111 mm[Hg] Radu Desouza [facility] 07-21-2020 12:37-0500 Pulse (Heart Rate) 82 /min [facility] 07-21-2020 12:37-0500 Pulse Oximetry 97 % [facility] 07-21-2020 10:16-0500 BMI (Body Mass Index) 28.32 kg/m2 [facility] 07-21-2020 10:16-0500 Body Temperature 98.1 [degF] [facility] 07-21-2020 10:16-0500 Body weight 74.84 kg [facility] 07-21-2020 10:16-0500 Height 162.6 cm [facility] 07-21-2020 10:16-0500 Respiratory Rate 16 /min [facility] 04-27-2020 17:00-0500 Pulse (Heart Rate) 98 /min [facility] [place] 04-27-2020 16:59-0500 Pulse Oximetry 96 % [facility] 04-27-2020 16:58-0500 BP Diastolic 54 mm[Hg] [facility] 04-27-2020 16:58-0500 BP Systolic 135 mm[Hg] [facility] 04-27-2020 16:01-0500 BMI (Body Mass Index) 28.29 kg/m2 [place] 04-27-2020 16:01-0500 Body Temperature 98.29 [degF] [facility] 04-27-2020 16:01-0500 Body weight 77.11 kg [place] 04-27-2020 16:01-0500 Height 165.1 cm [facility] 04-27-2020 16:01-0500 Respiratory Rate 18 /min [place] 05-20-2019 16:28-0500 BMI (Body Mass Index) 28.32 kg/m2 [facility] Work Phone: 05-20-2019 16:28-0500 Body Temperature 98.3 [degF] Shira Ward [facility] Work Phone: 05-20-2019 16:28-0500 Body weight 74.84 kg Shira Ward [facility] Work Phone: 05-20-2019 16:28-0500 BP Diastolic 78 mm[Hg] [facility] Work Phone: 05-20-2019 16:28-0500 BP Systolic 124 mm[Hg] [facility] Work Phone: 05-20-2019 16:28-0500 BSA (Body Surface Area) 1.8 m2 Shira Ward [facility] Work Phone: 05-20-2019 16:28-0500 Height 162.56 cm Shira Ward [facility] Work Phone: 05-20-2019 16:28-0500 Pulse (Heart Rate) 93 /min Shira Ward [facility] Work Phone: 05-20-2019 16:28-0500 Pulse Oximetry 97 % Shira Ward [facility] Work Phone: 05-20-2019 16:28-0500 Respiratory Rate 18 /min Shira Ward [facility] Work Phone: Encounters Encounter Date Encounter Type Care Provider Facility Start: 06-03-2024 End: 06-03-2024 ambulatory [facility] Facility:[facility] Start: 04-24-2024 End: 04-24-2024 Subsequent hospital visit by physician Balwinder [id number] X-Ray 1 [facility] Comment on above: Sciatica of left fraknlin e; Chronic pain of left knee Start: 04-24-2024 End: 04-24-2024 Office outpatient visit 25 minutes Shashi Fletcher MD Work Phone: [facility] Comment on above: Sciatica of left franklin e (Primary Dx); Chronic pain of left knee Start: 04-24-2024 End: 04-24-[address] [facility] Start: 04-09-2024 End: 04-22-2024 Telephone encounter Gaye Joseph [facility] Internal Medicine - Family Medicine Start: 03-31-2024 End: 03-31-2024 ambulatory [facility] Work Phone: Start: 03-31-2024 End: 03-31-2024 Patient encounter procedure [facility] Work Phone: Start: 02-09-2024 End: 02-09-2024 ambulatory [facility] Work Phone: Start: 02-09-2024 End: 02-09-2024 Patient encounter procedure [facility] Physician [facility] Work Phone: Start: 2024 End: 2024 ambulatory ALMA CAVANAUGH Facility:[facility] Start: 2024 End: 2024 Patient encounter procedure Alma Cavanaugh MD Work Phone: Orthopaedics Comment on above: Chronic right should er pain (Primary Dx) Start: 12-23-2023 End: 12-23-2023 Emergency department patient visit [facility] [place] Start: 11-06-2023 End: 11-06-2023 Office consultation new/estab patient 80 min Meño Retana MD Work Phone: [facility] Comment on above: High-tone pelvic rosa or dysfunction in female (Primary Dx); Urinary urgency; OAB (overactive bladder); Pelvic pain Start: 11-06-2023 End: 11-06-2023 ambulatory MEÑO RETANA [facility] Ambulatory Start: 09-20-2023 End: 09-20-2023 ambulatory Leti Domínguez PT Work Phone: [facility] Comment on above: Pain in joint of rig ht shoulder (Primary Dx); Posture imbalance Start: 08-29-2023 End: 08-29-2023 ambulatory Leti Domínguez PT Work Phone: [facility] Comment on above: Pain in joint of rig ht shoulder (Primary Dx); Shoulder weakness; Posture imbalance; Decreased range of motion of right shoulder Start: 08-08-2023 Telephone encounter Daniel rock DO Work Phone: [facility] [place] Comment on above: Appointment Start: 08-08-2023 End: 08-08-2023 Patient encounter procedure Daniel Sena DO Work Phone: Orthopaedics Comment on above: Chronic right should er pain (Primary Dx) Start: 08-08-2023 End: 08-08-2023 ambulatory Leti Domínguez PT Work Phone: [facility] Comment on above: Pain in joint of rig ht shoulder (Primary Dx); Shoulder weakness; Posture imbalance; Decreased range of motion of right shoulder Start: 08-01-2023 End: 08-01-2023 ambulatory [facility] Facility:[facility] Start: 07-18-2023 End: 07-18-2023 ambulatory [facility] Comment on above: Dr. Cavanaugh referr ed you to Dr. Sena or to Dr. Mohan for a Brisement procedure Start: 07-18-2023 E-mail encounter fro m caregiver [facility] Start: 07-18-2023 End: 07-18-2023 Patient encounter procedure Alma Cavanaugh MD Work Phone: Orthopaedics Comment on above: Chronic right should er pain (Primary Dx) Start: 07-17-2023 End: 07-18-2023 ambulatory [facility] Start: 07-17-2023 End: 07-17-2023 Office outpatient visit 15 minutes Radu Fisher MD Work Phone: [facility] Comment on above: Labral tear of shoul macey, degenerative, right Start: 07-10-2023 End: 07-11-2023 ambulatory [facility] Start: 07-06-2023 End: 07-06-2023 ambulatory [facility] Start: 07-06-2023 End: 07-06-2023 Encounter for gynecological examination (general) (routine) without abnormal findings [facility] Start: 06-12-2023 End: 06-13-2023 ambulatory RADU FISHER [facility] Start: 06-12-2023 End: 06-12-2023 Office outpatient visit 15 minutes Radu Fisher MD Work Phone: [facility] Comment on above: Labral tear of shoul macey, degenerative, right (Primary Dx); Acute pain of right shoulder Start: 04-19-2023 End: 04-19-2023 Office outpatient visit 10 minutes Edward A Craft DO Work Phone: [facility] Comment on above: Intrinsic eczema (Pr imary Dx) Start: 04-12-2023 ambulatory Cathy Moran MD Work Phone: Rheumatology Comment on above: Leg swelling with pa in Start: 02-22-2023 Adv care pln/ no alt dcsn mkr docd or refusal Edward A Craft Work Phone: [facility] DO Work Phone: Start: 01-16-[address] Bryce Wise II Facility: Start: 01-16-2023 Adv care pln/ no alt dcsn mkr docd or refusal Edward A Craft Work Phone: [facility] DO Work Phone: Start: 12-16-[address] Bryce Wise II Facility: Start: 08-29-2022 Adv care pln/ no alt dcsn mkr docd or refusal Edward A Craft Work Phone: [facility] DO Work Phone: Start: 08-29-[address] Ronak Mendoza Facility: Start: 08-26-2022 End: 08-26-2022 Emergency department patient visit ESTHER VILLANUEVA [facility] Start: 08-26-2022 End: 08-26-2022 Emergency department patient visit Esther Villanueva Work Phone: [facility] Comment on above: Urticaria (Primary D x) Start: 08-20-2022 End: 08-20-2022 Emergency department patient visit SHAINA SALCEDO [facility] Start: 08-20-2022 End: 08-20-2022 Emergency department patient visit Shaina Salcedo MD Work Phone: [facility] Comment on above: Abdominal pain, gene ralized (Primary Dx) Start: 08-12-2022 End: 08-12-2022 ambulatory [facility] Start: 08-12-2022 End: 08-12-2022 Encounter for other preprocedural examination PASCUAL ZUNIGA [facility] Start: 08-12-2022 End: 08-12-2022 Patient encounter status Pascual Zuniga MD Work Phone: [facility] Periop Start: 08-12-2022 End: 08-12-2022 Subsequent hospital visit by physician Pascual Zuniga MD Work Phone: [facility] Peri Comment on above: Adenomyosis of uteru s Start: 08-10-2022 ambulatory [facility] Start: 07-28-2022 ambulatory RAHUL MCCALLUM Facilit y:[facility] Start: 07-28-2022 End: 07-28-2022 Subsequent hospital visit by physician [facility] (Istat/1.5) Work Phone: [facility] Radiology MRI Comment on above: Pain in hip [M25.559 ] Start: 07-26-2022 End: 07-26-2022 Emergency department patient visit ANAIJUDITH JERRY [facility] Start: 07-24-2022 End: 07-24-2022 Emergency department patient visit GALINA CANCINO [facility] Start: 07-14-2022 End: 07-15-2022 Emergency department patient visit Kali Whitlock ED 02 Start: 07-08-2022 End: 07-08-2022 Patient encounter procedure Rahul Mccallum DO Work Phone: Orthopaedics Comment on above: Pain in right hip (P rimary Dx); Pain in hip Start: 07-05-2022 End: 07-05-2022 Emergency department patient visit BRYCE WISE [facility] Start: 07-05-2022 Emergency department patient visit BRYCE WISE Facility:[facility] Start: 06-28-2022 Telephone encounter Cathy dennis MD Work Phone: Rheumatology Comment on above: Rx Refills Start: 06-28-2022 End: 06-28-2022 Office outpatient visit 15 minutes Cathy Moran MD Work Phone: Rheumatology Comment on above: Pain in joint, multi ple sites (Primary Dx); Pain in right hip; Fibromyalgia Start: 05-19-2022 Adv care pln/ no alt dcsn mkr docd or refusal Bryce Wise Work Phone: [facility] DO Work Phone: Start: 05-19-[address] Bryce Wise Facility: Start: 05-11-2022 End: 05-11-2022 ambulatory DONNAJONY NUÑEZ [facility] Start: 03-21-[address] Meño Retana Facility:[id number] Start: 03-09-2022 End: 03-09-2022 Subsequent hospital visit by physician Xr [facility] Radiology Comment on above: Pain in joint, multi ple sites [M25.50] Start: 03-09-2022 ambulatory Amelia Bennett n RT(R) Radiology Comment on above: Radiology XR Start: 03-09-2022 End: 03-09-2022 Patient encounter procedure Amelia Herring RT(R) [facility] Comment on above: Pain in joint, multi ple sites (Primary Dx); Rash and nonspecific skin eruption Start: 03-06-2022 End: 03-06-2022 Emergency department patient visit BRYCE [email or web address] Start: 03-06-2022 End: 03-06-2022 Emergency department patient visit Edjudith Wise DO Work Phone: [facility] Emergency Department Start: 01-17-2022 Office outpatient vi sit 25 minutes Edward A Craft Work Phone: [facility] DO Work Phone: Start: 01-14-2022 End: 01-14-2022 Emergency department patient visit EDJUDITH Zamora [facility] Start: 01-13-2022 End: 01-14-2022 Emergency department patient visit Becka Reynaga DO Work Phone: [facility] ED Comment on above: Menorrhagia with irr egular cycle (Primary Dx) Start: 01-10-2022 Office outpatient vi sit 25 minutes Edward A Craft Work Phone: [facility] Work Phone: Start: 12-08-2021 NPVPRE, Provider: Alexus Juan, Status: Pen, Time: 10:30 AM Edward A Craft Work Phone: [facility] DO Work Phone: Start: 12-08-2021 Office consultation new/estab patient 60 min Edward A Craft Work Phone: [id number] Work Phone: Start: 12-07-2021 Patient encounter procedure Edward A Craft Work Phone: [facility] DO Work Phone: Start: 12-02-2021 Patient encounter procedure Edward A Craft Work Phone: [facility] DO Work Phone: Start: 11-22-2021 Office outpatient vi sit 15 minutes Edward A Craft Work Phone: [facility] DO Work Phone: Start: 11-17-2021 FUV, Provider: Radu Fisher, Status: Pen, Time: 4:00 PM Edjudith A Crapatricia Work Phone: [facility] DO Work Phone: Start: 11-17-2021 Patient encounter procedure Edward A Craft Work Phone: [facility] Work Phone: Start: 11-15-2021 ambulatory [facility] Facility:[id number] Start: 11-15-2021 Office outpatient vi sit 15 minutes Edward A Craft Work Phone: [facility] DO Work Phone: Start: 11-13-2021 End: 11-13-2021 Emergency department patient visit EDWARD Noah WISE [facility] Start: 11-13-2021 End: 11-13-2021 Emergency department patient visit Edward Frandy DO Work Phone: [facility] ED Comment on above: Trapezius muscle spa sm (Primary Dx) Start: 11-07-2021 Chart Update Edjudith A Crapatricia Work Phone: [facility] Work Phone: Start: 10-28-2021 ambulatory [facility] Facility:[id number] Start: 10-26-2021 AUDIT Edward A Craft Work Phone: [facility] Work Phone: Start: 10-20-2021 Patient encounter procedure Edward A Craft Work Phone: [facility] Work Phone: Start: 10-16-2021 Patient encounter procedure Edward A Craft Work Phone: [facility] Work Phone: Start: 10-11-2021 Office outpatient vi sit 15 minutes Edward A Craft Work Phone: [facility] Work Phone: Start: 10-05-2021 Patient encounter procedure Edward A Craft Work Phone: [facility] Work Phone: Start: 10-05-2021 [id number], Provider : Tomasz Patino, Status: Pen, Time: 9:30 AM Edward A Craft Work Phone: [facility] Work Phone: Start: 10-05-[address] Radu Fisher Facility:[id number] Start: 09-30-2021 [facility], Provider: Radu Fisher, Status: Pen, Time: 2:30 PM Edward A Craft Work [facility] Work Phone: Start: 09-30-2021 Patient encounter procedure Edward A Craft Work Phone: [facility] Work Phone: Start: 09-30-[address] Radu Fisher Facility:[id number] Start: 09-28-2021 AUDIT Edward A Craft Work Phone: [facility] Work Phone: Start: 09-25-2021 NPV, Provider: Carlito Garcia, Status: Pen, Time: 3:15 PM Edward A Craft Work Phone: [facility] Work Phone: Start: 09-22-2021 CASA, Provider : Eze Hernandez, Status: Pen, Time: 11:00 AM Edward A Craft [facility] Work [facility]: Start: 09-22-2021 Patient encounter procedure Edward A Craft Work Phone: [facility] [place] Work Phone: Start: 09-22-2021 ambulatory Mr. Eze stout Gavlagemini Facility:[id number] Start: 09-22-2021 Chart Update Edward A Craft Work Phone: [facility] Work Phone: Start: 09-21-2021 Chart Update Edward A Craft Work Phone: [facility] DO Work Phone: Start: 09-20-2021 Office outpatient vi sit 25 minutes Edward A Craft Work Phone: [facility] Work Phone: Start: 09-17-2021 ambulatory Mr. Eze stout Gavlagemini Facility:[id number] Start: 09-09-2021 Chart Update Edward A Craft Work Phone: [facility] DO Work Phone: Start: 09-03-2021 AUDIT Edward A Craft Work Phone: [facility] Work Phone: Start: 08-31-2021 Office outpatient ne w 45 minutes Edward A Craft Work Phone: [facility] Work Phone: Start: 08-31-2021 Patient encounter procedure Edward A Craft Work Phone: [facility] Work Phone: Start: 08-27-2021 Chart Update Edward A Craft Work Phone: [facility] DO Work Phone: Start: 08-25-2021 Office outpatient vi sit 25 minutes Edward A Craft Work Phone: [facility] DO Work Phone: Start: 08-18-2021 Patient encounter procedure Edward A Craft Work Phone: [facility] DO Work Phone: Start: 08-14-2021 End: 08-14-2021 Emergency department patient visit Rahul Hirsch [facility] Emergency 02 Start: 08-04-2021 [email or web address], Provider : Robert Rush, Status: Pen, Time: 2:45 PM Edward A Craft Work Phone: [facility] Work Phone: Start: 08-02-2021 End: 08-03-2021 Emergency department patient visit Boogie Gabriel MD Work Phone: [facility] Emergency Department Start: 08-02-2021 Patient encounter procedure Edward A Craft Work Phone: [facility] Work Phone: Start: 07-21-2021 [email or web address], Provider : Renee Wilcox, Status: Pen, Time: 2:45 PM Edward A Craft Work [facility]: [facility] Work Phone: Start: 07-21-2021 Patient encounter procedure Edward A Craft Work Phone: [facility] Work Phone: Start: 07-19-2021 Patient encounter procedure Edward A Craft Work Phone: [facility] Work Phone: Start: 07-19-2021 [email or web address], Provider : Dorothea Phoenix, Status: Pen, Time: 2:30 PM Edward A Craft Work Phone: [facility] Work Phone: Start: 07-15-2021 [email or web address], Provider : Renee Wilcox, Status: Pen, Time: 2:45 PM Edward A Craft Work Phone: [facility] DO Work Phone: Start: 07-15-2021 FUV, Provider: Eze Hernandez, Status: Pen, Time: 9:45 AM Edward A Craft Work Phone: [facility] DO Work Phone: Start: 07-15-2021 Patient encounter procedure Edward A Craft Work Phone: [facility] Work Phone: Start: 07-14-2021 FUV, Provider: Radu Fisher, Status: Pen, Time: 4:00 PM Edward A Craft Work Phone: [facility] DO Work Phone: Start: 07-14-2021 Patient encounter procedure Edward A Craft Work Phone: [facility] DO Work Phone: Start: 07-12-2021 Patient encounter procedure Edward A Craft Work Phone: [facility] Work Phone: Start: 07-12-2021 Office outpatient vi sit 25 minutes Edward A Craft Work Phone: [facility] DO Work Phone: Start: 07-07-2021 [email or web address], Provider : Dorothea Phoenix, Status: Pen, Time: 2:30 PM Edward A Craft Work Phone: [facility] Work Phone: Start: 07-05-2021 Patient encounter procedure Edward A Craft Work Phone: [facility] Work Phone: Start: 06-30-2021 [email or web address], Provider : Dorothea Phoenix, Status: Pen, Time: 2:30 PM Edward A Craft Work Phone: [facility] Work Phone: Start: 06-28-2021 Patient encounter procedure Edward A Craft Work Phone: [facility] Work Phone: Start: 06-28-2021 [email or web address], Provider : Renee Wilcox, Status: Pen, Time: 2:15 PM Edward A Craft Work Phone: [facility] [place] Work Phone: Start: 06-23-2021 Patient encounter procedure Edward A Craft Work Phone: [facility] Work Phone: Start: 06-16-2021 FUV, Provider: Radu Fisher, Status: Pen, Time: 2:00 PM Edward A Craft Work Phone: [facility] DO Work Phone: Start: 06-15-2021 Patient encounter procedure Edward A Craft Work Phone: [facility] [place] Work Phone: Start: 06-15-2021 Office outpatient vi sit 25 minutes Edward A Craft Work Phone: [facility] DO Work Phone: Start: 06-08-2021 [id number], Provider : Renee Wilcox, Status: Pen, Time: 9:15 AM Edward A Craft Work Phone: [facility] [place] Work Phone: Start: 06-04-2021 Chart Update Edward A Craft Work Phone: [facility] [place] Work Phone: Start: 06-03-2021 NPV, Provider: Eze Hernandez, Status: Pen, Time: 10:00 AM Edward A Craft Work Phone: [facility] [place] Work Phone: Start: 06-03-2021 Patient encounter procedure Edward A Craft Work Phone: [facility] [place] Work Phone: Start: 06-02-2021 FUV, Provider: Radu Fisher, Status: Pen, Time: 2:30 PM Edward A Craft Work Phone: [facility] Work Phone: Start: 06-02-2021 Patient encounter procedure Edward A Craft Work Phone: [facility] [place] Work Phone: Start: 06-02-2021 AUDIT Edward A Craft Work Phone: -[place] [facility] Work Phone: Start: 05-17-2021 Chart Update Edward A Craft Work Phone: [facility] [facility] [place] Work Phone: Start: 05-12-2021 Patient encounter procedure Edward A Craft Work Phone: [facility] [place] Work Phone: Start: 05-07-2021 End: 05-08-2021 Emergency department patient visit [facility] Start: 05-07-2021 End: 05-07-2021 Emergency department patient visit [facility] Start: 05-05-2021 Patient encounter procedure Edward A Craft Work Phone: [facility] DO Work Phone: Start: 04-07-2021 AUDIT Bryce Wise Work Phone: [facility] DO Work Phone: Start: 03-18-2021 End: 03-18-2021 Emergency department patient visit Reynaldo [facility] Start: 02-07-2021 End: 02-08-2021 Emergency department patient visit VINCE [facility] Start: 12-28-2020 Patient encounter procedure Bryce Wise Work Phone: [facility] [place] Work Phone: Start: 12-23-2020 End: 12-23-2020 Emergency department patient visit Rahul Hirsch [facility] Emergency 14 Start: 12-19-2020 End: 12-19-2020 Emergency department patient visit Leti Angela [facility] Emergency 04 Start: 12-11-2020 End: 12-11-2020 Emergency department patient visit Thomas Phillips MD Work Phone: [facility] Emergency Department Start: 11-23-2020 Patient encounter procedure Bryce Wise Work Phone: [facility] [place] Work Phone: Start: 10-27-2020 End: 10-27-2020 Emergency department patient visit Ce Hastings MD Work Phone: [facility] Emergency Department Start: 09-23-2020 End: 09-23-2020 ambulatory [facility] Start: 09-23-2020 End: 09-23-2020 Postop follow up visit related to original px Tomy Lomax MD Work Phone: [facility] Comment on above: Postoperative pain ( Primary Dx); Status post laparoscopic cholecystectomy Start: 09-21-2020 End: 09-22-2020 Emergency department patient visit Manuel Trujillo MD Work Phone: [facility] Emergency Department Start: 09-03-2020 End: 09-03-2020 ambulatory CARLITO MARTIN [facility] Ambulat ory Start: 09-03-2020 End: 09-03-2020 Postop follow up visit related to original px Tomy Lomax Work Phone: [facility] Comment on above: Status post laparosc opic cholecystectomy (Primary Dx) Start: 08-20-2020 End: 08-20-2020 Subsequent hospital visit by physician Tomy Lomax Work Phone: [facility] Periop Start: 08-19-2020 End: 08-19-2020 Emergency department patient visit Eagle Swift Work Phone: [facility] ED Comment on above: Biliary colic (Prima ry Dx) Start: 08-04-2020 ambulatory WHITDARINEL FILM CASTING OPERATOR [facility] Ambulatory Start: 08-01-2020 End: 08-02-2020 Emergency department patient visit Manuel Trujillo Work Phone: [facility] Med Surg Oncology Comment on above: Acute biliary pancre atitis, unspecified complication status (Primary Dx) Start: 07-27-2020 End: 07-27-2020 ambulatory PHYSICIAN KAMERON [facility] Ambulato ry Start: 07-27-2020 End: 07-27-2020 Office outpatient new 30 minutes oTmy Lomax Work Phone: [facility] Comment on above: Symptomatic cholelit hiasis (Primary Dx); Abdominal pain, unspecified abdominal location; Abnormal LFTs Start: 07-21-2020 End: 07-21-2020 Emergency department patient visit PHYSICIAN KAMERON [facility] Start: 07-21-2020 End: 07-21-2020 Emergency department patient visit Radu Desouza Work Phone: [place] [facility] Comment on above: Acute pancreatitis w ithout infection or necrosis, unspecified pancreatitis type (Primary Dx); Calculus of gallbladder without cholecystitis without obstruction Start: 05-20-2020 Patient encounter procedure [facility] Work Phone: Start: 05-13-2020 Patient encounter procedure [facility]u Fisher [facility] Work Phone: Start: 05-07-2020 Patient encounter procedure [facility] Work Phone: Start: 05-04-2020 Patient encounter procedure Radu Fisher [facility] Work Phone: Start: 04-30-2020 Patient encounter procedure [facility]u Fisher [facility] Work Phone: Start: 04-27-2020 End: 04-27-2020 Emergency department patient visit Navi Herman Work Phone: [facility] Comment on above: Bacteriuria (Primary Dx); , unspecified gestational age Start: 04-27-2020 Patient encounter procedure [facility] Work Phone: Start: 04-21-2020 Patient encounter procedure Radu Fisher [facility] Work Phone: Start: 04-17-2020 Patient encounter procedure [facility] Work Phone: Start: 04-07-2020 Patient encounter procedure Radu Fisher [facility] Work Phone: Start: 02-10-2020 Patient encounter procedure Radu Fisher [facility] [facility] Work Phone: Start: 08-08-2019 Patient encounter procedure Radu [facility] Work Phone: Start: 05-30-2019 Patient encounter procedure Shira Ward [facility] Work Phone: Start: 05-20-2019 Patient encounter procedure [facility] Wadr [facility] Work Phone: Start: 05-20-2019 Patient encounter procedure [facility] Work Phone: Start: 05-15-2019 Patient encounter procedure [facility] Work Phone: Start: 05-08-2019 Patient encounter procedure [facility] Work Phone: Start: 05-01-2019 Patient encounter procedure [facility] Work Phone: Start: 01-21-2019 Patient encounter procedure [facility]ira [facility] Work Phone: Start: 11-19-2018 Patient encounter procedure [facility] Work Phone: Start: 11-14-2018 Patient encounter procedure [facility] Work Phone: Start: 11-12-2018 Patient encounter procedure [facility] Work Phone: Start: 11-07-2018 Patient encounter procedure [facility] Work Phone: Start: 11-05-2018 Patient encounter procedure Shira Ward [facility] Work Phone: Start: 10-31-2018 Patient encounter procedure [facility] Work Phone: Start: 10-29-2018 Patient encounter procedure [facility]ira [facility] Work Phone: Start: 10-03-2018 Patient encounter procedure [facility]ira [facility] Work Phone: Start: 10-01-2018 Patient encounter procedure [facility]ira [facility] Work Phone: Start: 09-26-2018 Patient encounter procedure [facility]ira [facility] Work Phone: Start: 09-24-2018 Patient encounter procedure [facility]ira [facility] Work Phone: Start: 09-19-2018 Patient encounter procedure [facility] Work Phone: Start: 09-17-2018 Patient encounter procedure [facility]ira [facility] Work Phone: Start: 09-12-2018 Patient encounter procedure [facility] Work Phone: Start: 09-05-2018 Patient encounter procedure [facility] Work Phone: Start: 09-03-2018 Patient encounter procedure [facility] Work Phone: Start: 08-29-2018 Patient encounter procedure [facility] Work Phone: Start: 08-27-2018 Patient encounter procedure [facility]ira [facility] Work Phone: Start: 08-16-2018 Patient encounter procedure RADU FISHER Facility:4 Start: 05-08-2018 End: 05-08-2018 Patient encounter procedure RADU FISHER Facility:[facility] Start: 05-02-2018 Patient encounter procedure RADU FISHER Facility:[facility] Start: 04-30-2018 Patient encounter procedure RADU FISHER Facility:[facility] Start: 02-09-2018 End: 02-09-2018 Patient encounter procedure CIARRA SILVERMAN Facility:4 Start: 01-25-2018 Patient encounter procedure BRYCE WISE Facility:[id number] Start: 12-13-2017 End: 12-13-2017 Patient encounter procedure BRYCE CRAPATRICIA Facility:4 Start: 12-09-2017 Patient encounter procedure RADU REED Facility:[facility] Start: 10-06-2017 Patient encounter procedure PROVIDER UNKNOWN Facility:[id number] Start: 03-21-2017 Patient encounter procedure [facility] Work Phone: Start: 01-06-2017 Patient encounter procedure Shira Ward [facility] Work Phone: Start: 01-01-2017 Emergency department patient visit Nikko Najera Facility:[facility] Start: 12-13-2016 Patient encounter procedure [facility] Work Phone: Start: 10-04-2016 Patient encounter procedure [facility] Work Phone: Start: End: Patient encounter status Bryce Wise Work Phone: [facility] Work Phone: Procedures Date Procedure Procedure Detail Performing Clinician Start: 11-06-2023 Urnls dip stick/tablet rgnt auto w/o microscopy Meño Retana MD Work Phone: Start: 08-08-2023 Injection aa&/strd suprascapular nerve Daniel D Sena DO Work Phone: Start: 08-08-2023 Us guidance needle placement img s&i Daniel D Sena DO Work Phone: Start: 08-08-2023 Arthrocentesis aspir&/inj major jt/bursa w/us Daniel D Sena DO Work Phone: Start: 08-08-2023 Arthrocentesis aspir&/inj major jt/bursa w/us Daniel D Sena DO Work Phone: Start: 07-10-2023 MR ARTHROGRAM SHOULDER RIGHT RADU FISHER Start: 07-10-2023 XR ARTHROGRAM SHOULDER RIGHT RADU AJITTI Start: 07-06-2023 C. TRACHOMATIS + N. GONORRHOEAE, AMPLIFIED SURYA GUZMAN Start: 07-06-2023 GRAM STAIN FOR BACTERIAL VAGINOSIS/YEAST SURYA GUZMAN Start: 07-06-2023 TRICH VAGINALIS, AMPLIFIED SURYA Evans Start: 06-12-2023 XR SHOULDER RIGHT 2+ VIEWS RADU MOBLEY I Start: 04-11-2023 Lipid 1996 panel - Serum or Plasma Bryce Wise DO Work Phone: Start: 08-20-2022 Urnls dip stick/tablet rgnt auto w/o microscopy Chaudhari MD Work Phone: Start: 08-20-2022 Radiologic exam chest single view Shaina Salcedo MD Work Phone: Start: 08-20-2022 COVID-19, RAPID Shaina Salcedo MD Work Phone: Start: 08-20-2022 Iaad ia streptococcus group a Shaina Sacledo MD Work Phone: Start: 08-20-2022 End: 08-20-2022 Comprehensive metabolic panel Shaina Salcedo MD Work Phone: Start: 08-12-2022 Blood group typing, RH phenotyping Merrick Arellano DO Work Phone: Start: 08-12-2022 Gonadotropin chorionic qualitative Pascual Zuniga MD Work Phone: Start: 07-28-2022 Mri any jt lower extrem w/o contrast matrl Rahul R Edyjovani DO Work Phone: Start: 03-09-2022 Radiologic examination sacroiliac jnts <3 views Cathy Moran MD Work Phone: Start: 03-06-2022 Gonadotropin chorionic qualitative Beverly I Meftah [employer] Work Phone: Start: 03-06-2022 Urinalysis microscopic only Beverly I M eftah [employer] MA[employer] ENG[employer]ERING TEACHER Work Phone: Start: 03-06-2022 Urinalysis, reagent strip without microscopy Beverly I Meftah [employer] MA[employer] ENGINEERING TEACHER Work Phone: Start: 01-14-2022 Basic metabolic panel calcium total Becka Bulgrin DO Work Phone: Start: 01-14-2022 Urinalysis microscopic only Becka Bulg rin DO Work Phone: Start: 01-14-2022 Urine test visual color cmprsn meths Becka Bulgrin DO Work Phone: Start: 08-03-2021 Ct abdomen & pelvis w/o contrast material Boogie Gabriel MD Work Phone: Start: 08-03-2021 Gonadotropin chorionic qualitative Boogie Gabriel MD Work Phone: Start: 08-03-2021 Urinalysis microscopic only Boogie ovalle MD Work Phone: Start: 08-03-2021 Urinalysis, reagent strip without microscopy Boogie Gabriel MD Work Phone: Start: 03-17-2021 Total colonoscopy Anaijudith Zamora Derianpatricia Work Phone: Comment on above: repeat at 47 years old; Start: 10-27-2020 Ct abdomen & pelvis w/contrast material Ce Hastings MD Work Phone: Start: 10-27-2020 End: 10-27-2020 Ecg routine ecg w/least 12 lds w/i&r Ce Hastings MD Work Phone: Start: 10-27-2020 Assay of lipase Ce Hastings MD Work Phone: Start: 10-27-2020 Hepatic function panel Ce Hastings MD Work Phone: Start: 10-27-2020 Urnls dip stick/tablet reagent auto microscopy Ce Hastings MD Work Phone: Start: 09-22-2020 Ct abdomen & pelvis w/contrast material Briana Watson PA-C Work Phone: Start: 09-21-2020 Radiologic exam chest single view Briana PAEZ-C Work Phone: Start: 09-21-2020 End: 09-21-2020 Basic metabolic panel calcium total Briana PAEZ-C Work Phone: Start: 09-21-2020 Urnls dip stick/tablet reagent auto microscopy Briana Watson PA-C Work Phone: Start: 09-03-2020 History of cholecystectomy Status post laparoscopic cholecystectomy Manuel Trujillo MD Work Phone: Start: 08-20-2020 Choriogonadotropin ( test) [Presence] in Urine Tomy Lomax Work Phone: Start: 08-19-2020 Assay of lipase [employer] Work Phone: Start: 08-19-2020 Blood count complete auto&auto difrntl wbc [employer] Work Phone: Start: 08-19-2020 Comprehensive metabolic panel [employer] Work Phone: Start: 08-02-2020 Glucose [Mass/volume] in Blood Cecil Navarrete Work Phone: Start: 08-02-2020 Blood type and Indirect antibody screen panel - Blood America Wu Work Phone: Start: 08-02-2020 Calcium.ionized [Mass/volume] in Serum or Plasma America Dyerir Work Phone: Start: 08-02-2020 Comprehensive metabolic 2000 panel - Serum or Plasma America Su Bryce Work Phone: Start: 08-02-2020 Hepatic function 2000 panel - Serum or Plasma America Su Bryce Work Phone: Start: 08-02-2020 INR in Platelet poor plasma by Coagulation assay America Kaiseris Irving Work Phone: Start: 08-02-2020 Magnesium [Mass/volume] in Serum or Plasma America Kaiseris Bryce Work Phone: Start: 08-02-2020 Phosphate [Mass/volume] in Serum or Plasma America Glynnis Bryce Work Phone: Start: 08-02-2020 Complete blood count with white cell differential, automated America Dyerir Work Phone: Start: 08-02-2020 Complete blood count with white cell differential, manual America Wu Work Phone: Start: 08-01-2020 Bacteria identified in Unspecified specimen by Aerobe culture Leti Olsen Work Phone: Start: 08-01-2020 Complete blood count with white cell differential, automated Leti Olsen Work Phone: Start: 08-01-2020 Complete blood count with white cell differential, manual Leti Olsen Work Phone: Start: 08-01-2020 LIGHT BLUE TOP Manuel Ti Lawton Work Phone: Start: 08-01-2020 LIGHT GREEN TOP Manuel Ti Lawton Work Phone: Start: 08-01-2020 MINT GREEN TOP Manuel Ti Cassandra Work Phone: Start: 08-01-2020 RAINBOW DRAW Manuel Ti Lawton Work Phone: Start: 08-01-2020 Basic metabolic 2000 panel - Serum or Plasma Leti Olsen Work Phone: Start: 08-01-2020 Choriogonadotropin.beta subunit ( test) [Presence] in Serum or Plasma Leti Olsen Work Phone: Start: 08-01-2020 Hepatic function 2000 panel - Serum or Plasma Leti Olsen Work Phone: Start: 08-01-2020 Lipase [Enzymatic activity/volume] in Serum or Plasma Leti Olsen Work Phone: Start: 08-01-2020 Urinalysis Leti Olsen Work Phone: Start: 07-21-2020 Lipase [Enzymatic activity/volume] in Serum or Plasma Radu Desouza Work Phone: Start: 07-21-2020 Ct abdomen & pelvis w/o contrast material Radu Desouza Work Phone: Start: 07-21-2020 Basic metabolic panel calcium ionized [facility] Start: 07-21-2020 Urnls dip stick/tablet rgnt auto w/o microscopy [facility] Start: 07-21-2020 Blood count complete auto&auto difrntl wbc Radu Desouza Work Phone: Start: 07-21-2020 Albumin serum plasma/whole blood [facility] Start: 04-27-2020 Urinalysis microscopic only Navi avila Work Phone: Start: 04-27-2020 Urnls dip stick/tablet rgnt auto w/o microscopy Navi eHrman Work Phone: Arthroscopy Radu Fisher MD Cholecystectomy Edward A [email or web address] Work Phone: History of cholecystectomy Statu s post laparoscopic cholecystectomy Tomy Lomax MD Work Phone: History of Oral Surg chayo Tooth Extraction [facility] Shira Cossler Hysterectomy Edward A [employer] Work Phone: None (qualifier value) Elyasif Connelly Procedure on abdomen Edward A [employer] Work Phone: Repair of shoulder Edward A [employer] Work Phone: Comment on above: right; Plan of Treatment Date Care Activity Detail Author Start: 2047 Zoster Vaccines (1 o f 2) Zoster Vaccines (1 of 2) [facility] Start: 04-13-2030 DTaP/Tdap/Td vaccine (9 - Td or Tdap) DTaP/Tdap/Td vaccine (9 - Td or Tdap) [facility] Start: 04-13-2030 DTaP/Tdap/Td Vaccine s (9 - Td or Tdap) DTaP/Tdap/Td Vaccines (9 - Td or Tdap) [facility] Start: 04-13-2030 Tetanus vaccination [facility] Start: 04-13-2030 Urine microalbumin profile DTaP,Tdap,Td Vaccine (9 - Td or Tdap) [facility] Start: 04-11-2028 Lipid panel Lipid Panel [facility] Start: 07-07-2024 Yearly Adult Physical Yearly Adult P hysical [facility] Start: 04-24-2024 End: 04-24-2025 XR Knee - left 1 or 2 Views [facility] Service Area Work Phone: Comment on above: Expected: 04/24/2024 , Expires: 04/24/2025 Once for 1 Occurrenc es starting 04/24/2024 until 04/24/2024 Start: 01-28-2024 [facility] Start: 12-20-2023 End: 12-20-2023 Telemedicine consultation with patient 12/20/2023 12:30 PM EDT Telemedicine [facility] [address] [phone] Meño Retana MD [address] [address] [facility] Start: 11-14-2023 End: 11-14-2023 Patient encounter procedure 11/14/2023 8:45 AM EDT Office Visit Orthopaedics [address] [place] [address] [place] [address] [place] [address] BRISEMENT- R SHOULDER - follow up Orthopaedics Comment on above: BRISEMENT- R SHOULDE R - follow up Start: 11-06-2023 End: 11-05-2024 US Pelvis US pelvis Imaging Routine Pelvic pain Expected: 11/06/2023 (Approximate), Expires: 11/05/2024 [facility] Service Area Work Phone: Comment on above: Expected: 11/06/2023 (Approximate), Expires: 11/05/2024 Start: 09-26-2023 End: 09-26-2023 Patient encounter procedure 09/26/2023 2:00 PM EDT Office Visit Orthopaedics [address] [facility] [place] [address] Daniel Sena, [address] [place] [address] RIGHT SHOULDER - follow up Orthopaedics Comment on above: RIGHT SHOULDER - fol low up Start: 09-11-2023 End: 09-11-2023 Patient encounter procedure 09/11/2023 3:15 PM EDT Office Visit [facility] [address] [place] [address] [place] [phone] Radu Fisher MD [address] [facility], [address] [place], [place] [id number] [facility] Start: 06-12-2023 End: 06-12-2024 MR Shoulder - right Arthrogram MR arthrogram shoulder right Imaging Routine Acute pain of right shoulder Labral tear of shoulder, degenerative, right Expected: 06/12/2023, Expires: 06/12/2024 [facility] Service Area Work Phone: Comment on above: Expected: 06/12/2023 , Expires: 06/12/2024 Start: 06-12-2023 End: 06-12-2024 XR Shoulder - right Views XR arthrogram shoulder right Imaging Routine Acute pain of right shoulder Labral tear of shoulder, degenerative, right Expected: 06/12/2023, Expires: 06/12/2024 [facility] Work Phone: Comment on above: Expected: 06/12/2023 , Expires: 06/12/2024 Start: 05-29-2023 Behavioral Health Screening Behavioral Health Screening [facility] Start: 05-29-2023 Depression Assessment Depression Ass essment [facility] Start: 01-27-2023 Covid-19 Vaccine ( season) Covid-19 Vaccine ( season) [facility] Start: 01-27-2023 Influenza vaccination [facility] Start: 01-19-2023 FUV, Provider: Bryce Wise, Status: Pen, Time: 1:30 PM FUV, Provider: Bryce Wise, Status: Pen, Time: 1:30 PM [facility] DO Work Phone: Start: 11-22-2022 Depression Screen Depression Screen [facility] Start: 06-29-2022 FUV, Provider: Brian Miller, Status: Pen, Time: 2:00 PM FUV, Provider: Brian Miller, Status: Pen, Time: 2:00 PM [facility] DO Work Phone: Start: 06-29-2022 FUVPRE, Provider: Alexus Juan, Status: Pen, Time: 1:00 PM FUVPRE, Provider: Alexus Juan, Status: Pen, Time: 1:00 PM [facility] DO Work Phone: Start: 06-06-2022 [id number], Provider : Hakeem Schumacher, Status: Pen, Time: 2:45 PM [id number], Provider: Hakeem Schumacher, Status: Pen, Time: 2:45 PM [facility] DO Work Phone: Start: 05-29-2022 DEPRESSION ASSESSMENT DEPRESSION ASS [facility] Start: 03-30-2022 FUVPRE, Provider: Alexus Juan, Status: Pen, Time: 3:00 PM FUVPRE, Provider: Alexus Juan, Status: Pen, Time: 3:00 PM [facility] [address] Work Phone: Start: 03-21-2022 FUV, Provider: Meño Retana, Status: Pen, Time: 2:45 PM FUV, Provider: Meño Retana, Status: Pen, Time: 2:45 PM [facility] Work Phone: Start: 03-09-2022 End: 05-09-2022 25-hydroxyvitamin D3 [Mass/volume] in Serum or Plasma [facility] Work Phone: Comment on above: Expected: 03/09/2022 , Expires: 05/09/2022 Start: 03-09-2022 End: 05-09-2022 DUNG BY IFA WITH REFLEX [facility] Work Phone: Comment on above: Expected: 03/09/2022 , Expires: 05/09/2022 Start: 01-27-2022 Influenza vaccination B [facility] Start: 01-26-2022 FUV, Provider: Carlito Garcia, Status: Pen, Time: 3:00 PM FUV, Provider: Carlito Garcia, Status: Pen, Time: 3:00 PM [id number] Work Phone: Start: 01-25-2022 Depression Screen Depression Screen [facility] Start: 12-29-2021 FUV, Provider: Radu Fisher, Status: Pen, Time: 2:15 PM FUV, Provider: Radu Fisher, Status: Pen, Time: 2:15 PM [facility] Work Phone: Start: 12-27-2021 Influenza vaccination Flu vaccine (# 1) [facility] Start: 12-08-2021 NPVPRE, Provider: Alexus Juan, Status: Pen, Time: 10:30 AM NPVPRE, Provider: Alexus Juan, Status: Pen, Time: 10:30 AM [facility] Work Phone: Start: 12-08-2021 NPVPRE, Provider: Maricarmen Kohler, Status: Pen, Time: 10:30 AM NPVPRE, Provider: Maricarmen Kohler, Status: Pen, Time: 10:30 AM [facility] DO Work Phone: Start: 12-07-2021 [email or web address], Provider : Mar Carter, Status: Pen, Time: 2:30 PM [email or web address], Provider: Mar Carter, Status: Pen, Time: 2:30 PM [facility] DO Work Phone: Start: 12-02-2021 [email or web address], Provider : Mar Carter, Status: Pen, Time: 2:30 PM PTFUADULT4, Provider: Mar Carter, Status: Pen, Time: 2:30 PM [facility]: Start: 11-25-2021 PTFUADULT4, Provider : Mar Carter, Status: Pen, Time: 9:30 AM PTFUADULT4, Provider: Mar Carter, Status: Pen, Time: 9:30 AM [facility] Work Phone: Start: 11-22-2021 EPV, Provider: Bryce Wise, Status: Pen, Time: 12:45 PM EPV, Provider: Bryce Wise, Status: Pen, Time: 12:45 PM [facility] Work Phone: Start: 11-10-2021 FUV, Provider: Radu Fisher, Status: Pen, Time: 2:15 PM FUV, Provider: Radu Fisher, Status: Pen, Time: 2:15 PM [facility] Work Phone: Start: 10-16-2021 CYSTOSCOPY, Provider : PROCEDURE ROOM ELYRIA,UROL, Status: Pen, Time: 10:30 AM CYSTOSCOPY, Provider: PROCEDURE ROOM ELYRIA,UROL, Status: Pen, Time: 10:30 AM [facility] Work Phone: Start: 10-11-2021 VIRFUVHOME, Provider : Michael Nguyen, Status: Pen, Time: 11:45 AM VIRFUVHOME, Provider: Michael Nguyen, Status: Pen, Time: 11:45 AM [facility] Work [facility]: Start: 09-30-2021 NEWPROB, Provider: Radu Fisher, Status: Pen, Time: 2:30 PM NEWPROB, Provider: Radu Fisher, Status: Pen, Time: 2:30 PM [facility] Work [facility]: Start: 09-25-2021 NPV, Provider: Carlito Garcia, Status: Pen, Time: 3:15 PM NPV, Provider: Carlito Garcia, Status: Pen, Time: 3:15 PM [facility] Work Phone: Start: 09-20-2021 BXENDO, Provider: Michael Nguyen, Status: Pen, Time: 2:30 PM BXENDO, Provider: Michael Nguyen, Status: Pen, Time: 2:30 PM [facility] DO Work Phone: Start: 08-18-2021 FUV, Provider: Radu Fisher, Status: Pen, Time: 3:15 PM FUV, Provider: Radu Fisher, Status: Pen, Time: 3:15 PM [facility] Work Phone: Start: 08-18-2021 Patient encounter procedure [facility] [place] Start: 08-07-2021 Patient encounter procedure [facility] Preadmit Start: 08-04-2021 [email or web address], Provider : Robert Rush, Status: Pen, Time: 2:45 PM [email or web address], Provider: Robert Rush, Status: Pen, Time: 2:45 PM [facility] Work Phone: Start: 08-04-2021 [email or web address], Provider : Renee Wilcox, Status: Pen, Time: 2:45 PM [email or web address], Provider: Renee Wilcox, Status: Pen, Time: 2:45 PM [facility] DO Work Phone: Start: 08-02-2021 PTFUADULT4, Provider : Dorothea Phoenix, Status: Pen, Time: 2:30 PM PTFUADULT4, Provider: Dorothea Phoenix, Status: Pen, Time: 2:30 PM [facility] Work Phone: Start: 07-28-2021 [email or web address], Provider : Renee Wilcox, Status: Pen, Time: 2:45 PM PTFUADULT4, Provider: Renee Wilcox, Status: Pen, Time: 2:45 PM [facility] DO Work Phone: Start: 07-26-2021 PTFUADULT4, Provider : Dorothea Phoenix, Status: Pen, Time: 2:30 PM PTFUADULT4, Provider: Dorothea Phoenix, Status: Pen, Time: 2:30 PM [facility] DO Work Phone: Start: 07-21-2021 PTFUADULT4, Provider : Renee Wilcox, Status: Pen, Time: 2:45 PM PTFUADULT4, Provider: Renee Wilcox, Status: Pen, Time: 2:45 PM [facility] DO Work Phone: Start: 07-19-2021 PTFUADULT4, Provider : Dorothea Phoenix, Status: Pen, Time: 2:30 PM PTFUADULT4, Provider: Dorothea Phoenix, Status: Pen, Time: 2:30 PM [facility] DO Work Phone: Start: 07-15-2021 PTFUADULT4, Provider : Renee Wilcox, Status: Pen, Time: 2:45 PM PTFUADULT4, Provider: Renee Wilcox, Status: Pen, Time: 2:45 PM [facility] DO Work Phone: Start: 07-14-2021 FUV, Provider: Radu Fisher, Status: Pen, Time: 4:00 PM FUV, Provider: Radu Fisher, Status: Pen, Time: 4:00 PM [facility] DO Work Phone: Start: 07-12-2021 [email or web address], Provider : Dorothea Phoenix, Status: Pen, Time: 2:30 PM PTFUADULT4, Provider: Dorothea Phoenix, Status: Pen, Time: 2:30 PM [facility] DO Work Phone: Start: 07-08-2021 FUV, Provider: Eze Hernandez, Status: Pen, Time: 10:30 AM FUV, Provider: Eze Hernandez, Status: Pen, Time: 10:30 AM [facility] Work Phone: Start: 07-07-2021 PTFUADULT4, Provider : Dorothea Phoenix, Status: Pen, Time: 2:30 PM PTFUADULT4, Provider: Dorothea Phoenix, Status: Issac, Time: 2:30 PM [facility] DO Work Phone: Start: 07-05-2021 PTFUADULT4, Provider : Renee Wilcox, Status: Pen, Time: 3:00 PM PTFUADULT4, Provider: Renee Wilcox, Status: Pen, Time: 3:00 PM [facility] DO Work Phone: Start: 07-01-2021 FUV, Provider: Eze Hernandez, Status: Pen, Time: 11:00 AM FUV, Provider: Eze Hernandez, Status: Pen, Time: 11:00 AM [facility] DO Work Phone: Start: 06-30-2021 PTFUADULT4, Provider : Dorothea Phoenix, Status: Pen, Time: 2:30 PM PTFUADULT4, Provider: Dorothea Phoenix, Status: Pen, Time: 2:30 PM [facility] DO Work Phone: Start: 06-28-2021 PTFUADULT4, Provider : Renee Wilcox, Status: Pen, Time: 2:15 PM PTFUADULT4, Provider: Renee Wilcox, Status: Pen, Time: 2:15 PM [facility] Work Phone: Start: 06-22-2021 [id number], Provider : Renee Wilcox, Status: Pen, Time: 9:15 AM [id number], Provider: Renee Wilcox, Status: Pen, Time: 9:15 AM [facility] DO Work Phone: Start: 06-18-2021 Screening for Chlamydia trachomatis [facility] Start: 06-08-2021 [id number], Provider : Renee Wilcox, Status: Pen, Time: 9:15 AM [id number], Provider: Renee Wilcox, Status: Pen, Time: 9:15 AM [facility] Work Phone: Start: 06-02-2021 FUV, Provider: Radu Fisher, Status: Pen, Time: 2:30 PM FUV, Provider: Radu Fisher, Status: Pen, Time: 2:30 PM [facility] Work [facility]: Start: 05-29-2021 DEPRESSION ASSESSMENT DEPRESSION ASS [facility] Start: 05-12-2021 Patient encounter procedure [facility] [place] Start: 05-12-2021 POV, Provider: Radu Weldon, Status: Pen, Time: 2:00 PM POV, Provider: Radu Weldon, Status: Pen, Time: 2:00 PM [facility] DO Work Phone: Start: 05-11-2021 Patient encounter procedure [facility] Start: 05-11-2021 [facility], Provider: Radu Fisher, Status: Pen, Time: 10:30 AM [facility], Provider: Radu Fisher, Status: Pen, Time: 10:30 AM [facility] Work Phone: Start: 05-07-2021 Patient encounter procedure [facility] Preadmit Start: 05-07-20[facility]: Radu Fisher, Status: Pen, Time: 7:30 AM [facility], Provider: Radu Fisher, Status: Pen, Time: 7:30 AM [facility] DO Work Phone: Start: 05-05-2021 Patient encounter procedure [facility] [place] Start: 05-05-2021 PREADMIT, Provider: Radu Weldon, Status: Pen, Time: 1:00 PM PREADMIT, Provider: Radu Weldon, Status: Pen, Time: 1:00 PM [facility] DO Work Phone: Start: 01-27-2021 Influenza vaccination A [facility] Start: 12-31-2020 Patient encounter procedure [facility] Start: 12-31-2020 POV, Provider: Radu Weldon, Status: Pen, Time: 3:00 PM POV, Provider: Radu Weldon, Status: Pen, Time: 3:00 PM [facility] [place] Work Phone: Start: 12-29-2020 [facility], Provider: Radu Fisher, Status: Pen, Time: 8:30 AM [facility], Provider: Radu Fisher, Status: Pen, Time: 8:30 AM [facility] [place] Work Phone: Start: 12-29-2020 Patient encounter procedure [facility] Preadmit Start: 12-28-2020 PREADMIT, Provider: Radu Weldon, Status: Pen, Time: 3:00 PM PREADMIT, Provider: Radu Weldon, Status: Pen, Time: 3:00 PM [facility] [place] Work Phone: Start: 12-28-2020 End: 12-28-2020 Patient encounter procedure [facility] Start: 08-20-2020 End: 08-20-2020 Hospital Encounter [facility] Periop Comment on above: CHOLECYSTECTOMY LAPA ROSCOPIC Start: 08-06-2020 End: 08-06-2020 Office Visit [facility] Preadmission Testing Start: 07-27-2020 End: 07-27-2020 Office Visit 07/27/2020 Office Visit General Surgery Tomy Lomax MD [address] [facility] [address] [place] [address] [phone] [facility] Start: 01-28-2020 Influenza vaccination [place] Start: 01-28-2020 Influenza vaccinatio n given Sequential Influenza Vaccine (#1) [facility] Start: 01-27-2019 GONORRHEA SCREEN GONORRHEA SCREEN [facility] Start: 01-27-2019 Screening for Chlamydia trachomatis [facility] Start: 08-19-2018 DTaP/Tdap/Td vaccine (5 - Td) DTaP/Tdap/Td vaccine (5 - Td) [facility] Phone: Start: 08-19-2018 DTaP/Tdap/Td vaccine (8 - Td) DTaP/Tdap/Td vaccine (8 - Td) [place], [place] Start: 2018 PAP TESTING PAP TESTING [facility] Start: 2018 Screening for malignant neoplasm of cervix [facility] Start: 01-03-2016 Third diphtheria, tetanus and acellular pertussis (DTaP) vaccination TDAP (ADULT) [facility] Start: 01-03-2016 Urine microalbumin profile DTAP,TDAP,TD (1 - Tdap) [facility] Start: 2015 Anxiety Screening Anxiety Screening [facility] Start: 2015 Depression Screening Depression Scre [facility] Start: 2015 Hepatitis C screening B ON [facility] Start: 2015 HEPATITIS C SCREENING HEPATITIS C SC REENING [facility] Start: 2015 HIV SCREENING HIV SCREENING [facility] Start: 2015 HIV screening HIV Screening [facility] Start: 2015 Tetanus vaccination [facility] Start: 02-06-2013 Hepatitis A vaccine (2 of 2 - 2-dose series) Hepatitis A vaccine (2 of 2 - 2-dose series) [facility] Start: 02-06-2013 Hepatitis A Vaccines (2 of 2 - 2-dose series) Hepatitis A Vaccines (2 of 2 - 2-dose series) [facility] Start: 2013 COVID-19 Vaccine (1 of 2) COVID-19 Vaccine (1 of 2) [facility] Start: 2013 COVID-19 Vaccine (1) COVID-19 Vaccin e (1) [facility] Start: 2013 Screening for Chlamydia trachomatis Chlamydia screen [place], [place] Start: 01-03-2012 HIV screening [facility] Start: 2011 PEDS TO ADULT TRANSITION ANNUAL ASSESSMENT PEDS TO ADULT TRANSITION ANNUAL ASSESSMENT [facility] Start: 2009 Adolescent depressio n screening assessment Depression Screening (PHQ9) [facility] Start: 2009 COVID-19 Vaccine (1) COVID-19 Vaccin e (1) [facility] Start: 2009 Depression screening using PHQ-9 (Patient Health Questionnaire 9) score Depression Screening (PHQ9) [facility] Start: 2009 PEDS TO ADULT TRANSITION INITIAL DISCUSSION PEDS TO ADULT TRANSITION INITIAL DISCUSSION [facility] Start: 01-03-2008 DTaP/Tdap/Td Vaccine s (6 - Tdap) DTaP/Tdap/Td Vaccines (6 - Tdap) [facility] Start: 01-03-2008 HPV VACCINE (1 - 2-dose series) HPV VACCINE (1 - 2-dose series) [facility] Start: 01-03-2008 Vaccination for dov n papillomavirus HPV VACCINE ADOL (1 - 2-dose series) [facility] [facility] Start: 2006 HPV VACCINE (1 - 2-dose series) HPV VACCINE (1 - 2-dose series) [facility] Start: 2002 COVID-19 Vaccine (#1) COVID-19 Vacci ne (#1) [facility] Start: 2002 COVID-19 VACCINE (1) COVID-19 VACCIN E (1) [facility] Start: 01-03-2000 History and physical examination, annual for health maintenance Wellness Visit [facility] Start: 1997 COVID-19 Vaccine (#1) COVID-19 Vacci ne (#1) [facility] Start: 1997 HEPATITIS B (1 of 3 - 3-dose series) HEPATITIS B (1 of 3 - 3-dose series) [facility] Start: 1997 Hepatitis B vaccination HEP B VACCINE (1 of 3 - 3-dose series) [facility] Start: 1997 Hepatitis C antibody , confirmatory test HEPATITIS C VIRUS SCREENING [facility] Start: 1997 Hepatitis C screening A [facility] Start: 1997 HIV screening HIV Screening [facility] Start: 1997 Screening for malignant neoplasm of cervix Pap Smear [facility] Start: 1997 Yearly Adult Physical Yearly Adult P [facility] End: 07-27-2021 12 lead ECG ECG 12 Lead ECG Routine Symptomatic cholelithiasis Abdominal pain, unspecified abdominal location Abnormal LFTs 1 Occurrences starting 07/27/2020 until 07/27/2021 [facility] Comment on above: 1 Occurrences starti ng 07/27/2020 until 07/27/2021 End: 07-21-2020 Bacteria identified Aer cx Nom (Unsp spec) Urine Aerobic Culture Microbiology Routine Once for 1 Occurrences starting 07/21/2020 until 07/21/2020 [facility] Comment on above: Once for 1 Occurrenc es starting 07/21/2020 until 07/21/2020 Bacteria identified Aer cx Nom (Unsp spec) [facility] End: 08-26-2022 CBC W Auto Differential panel - Blood [employer] Work Phone: Comment on above: One Time for 1 Occur rences starting 08/26/2022 until 08/26/2022 End: 07-27-2021 Complete blood count (hemogram) panel - Blood by Automated count CBC Lab Routine Symptomatic cholelithiasis Abdominal pain, unspecified abdominal location Abnormal LFTs 1 Occurrences starting 07/27/2020 until 07/27/2021 [facility] Comment on above: 1 Occurrences starti ng 07/27/2020 until 07/27/2021 End: 07-27-2021 Comprehensive metabolic 2000 panel Comprehensive Metabolic Panel Lab Routine Symptomatic cholelithiasis Abdominal pain, unspecified abdominal location Abnormal LFTs 1 Occurrences starting 07/27/2020 until 07/27/2021 [facility] Comment on above: 1 Occurrences starti ng 07/27/2020 until 07/27/2021 End: 08-26-2022 Comprehensive metabolic 2000 panel - Serum or Plasma Guide Phone: Comment on above: One Time for 1 Occur rences starting 08/26/2022 until 08/26/2022 End: 08-20-2022 CT ABDOMEN PELVIS W IV CONTRAST Additional Contrast? None Guide Phone: Comment on above: Once for 1 Occurrenc es starting 08/20/2022 until 08/20/2022 CT Abdomen Pelvis Without Contrast CT Abdomen Pelvis Without Contrast Imaging STAT 07/21/2020 11:31 AM EST [employer] End: 01-14-2022 CT ABDOMEN PELVIS WO CONTRAST Additional Contrast? None CT ABDOMEN PELVIS WO CONTRAST Additional Contrast? None Imaging STAT Once for 1 Occurrences starting 01/14/2022 until 01/14/2022 Guide Phone: Comment on above: Once for 1 Occurrenc es starting 01/14/2022 until 01/14/2022 CT ABDOMEN PELVIS WO CONTRAST Additional Contrast? None CT ABDOMEN PELVIS WO CONTRAST Additional Contrast? None Imaging STAT 01/14/2022 12:25 AM EDT [employer] Work Phone: End: 07-27-2021 Hepatic function 2000 panel - Serum or Plasma Hepatic Function Panel Lab Routine Symptomatic cholelithiasis Abdominal pain, unspecified abdominal location Abnormal LFTs 1 Occurrences starting 07/27/2020 until 07/27/2021 [employer] Comment on above: 1 Occurrences starti ng 07/27/2020 until 07/27/2021 History of cholecystectomy History of cholecystectomy [facility] History of operative procedure on shoulder History of shoulder surgery [facility] History of surgical procedure on mouth History of dental surgery [facility] End: 08-20-2022 Microscopic urinalysis Guide Phone: Comment on above: Once for 1 Occurrenc es starting 08/20/2022 until 08/20/2022 End: 08-07-2023 MRI HIP WO IVCON LT MRI HIP WO IVCON LT Radiology Routine Pain in hip 1 Occurrences starting 07/08/2022 until 08/07/2023 [facility] Work Phone: Comment on above: 1 Occurrences starti ng 07/08/2022 until 08/07/2023 End: 08-07-2023 MRI HIP WO IVCON RT MRI HIP WO IVCON RT Radiology Routine Pain in hip 1 Occurrences starting 07/08/2022 until 08/07/2023 [facility] Work Phone: Comment on above: 1 Occurrences starti ng 07/08/2022 until 08/07/2023 Procedure on tissue specimen [facility] Comment on above: Release Upon Orderin g for 1 Occurrences starting 08/20/2020, 1 completed SURGICAL PATHOLOGY REQUEST SURGICAL PATHOLOGY REQUEST Surg Path Routine Adenomyosis of uterus Pelvic pain in female Dysmenorrhea Menometrorrhagia Dyspareunia, female Release Upon Ordering for 1 Occurrences starting 08/12/2022 [facility] Comment on above: Release Upon Orderin g for 1 Occurrences starting 08/12/2022 Urinalysis with Refl ex to Culture Urinalysis with Reflex to Culture Lab STAT 08/20/2022 7:30 PM EDT [facility] Work Phone: End: 04-27-2020 Wet Prep, Genital Wet Prep, Genital Microbiology STAT One Time for 1 Occurrences starting 04/27/2020 until 04/27/2020 [facility] Comment on above: One Time for 1 Occur rences starting 04/27/2020 until 04/27/2020 [facility] Work Phone: [facility] NEGATED: Highlighted row has been ruled out! Planned Goals not documented [facility] Work Phone: Immunizations Immunization Date Immunization Notes Care Provider Du raymond 04-13-2020 tetanus toxoid, redu usman diphtheria toxoid, and acellular pertussis vaccine, adsorbed Bryce Wise Work Phone: [facility] [facility] [place] Work Phone: 08-06-2012 hepatitis A vaccine, adult dosage Bryce Wise DO Work Phone: [facility] Work Phone: 08-06-2012 hepatitis A and hepatitis B vaccine Bryce Wise DO Work Phone: [facility] Work Phone: 08-06-2012 hepatitis A vaccine, unspecified formulation [facility] Work Phone: 09-23-2011 human papilloma viru s vaccine, quadrivalent [facility] Work Phone: Comment on above: Series: 05-10-2011 human papilloma viru s vaccine, quadrivalent Shira Ward [facility] Work Phone: Comment on above: Series: 03-11-2011 human papilloma viru s vaccine, quadrivalent Shira Ward [facility] Work Phone: Comment on above: Series: 01-07-2010 varicella virus vaccine [facility]coso [facility] Work Phone: Comment on above: Series: 01-19-2009 meningococcal polysaccharide (groups A, C, Y and W-135) diphtheria toxoid conjugate vaccine (MCV4P) Bryce Wise DO Work Phone: [facility] Work Phone: 01-19-2009 meningococcal polysaccharide (groups A, C, Y and W-135) diphtheria toxoid conjugate vaccine (MCV4P) [facility] Work Phone: 08-19-2008 meningococcal polysaccharide (groups A, C, Y and W-135) diphtheria toxoid conjugate vaccine (MCV4P) Bryce Wise Work Phone: -[place] [facility] [facility] Work Phone: 08-19-2008 tetanus toxoid, redu usman diphtheria toxoid, and acellular pertussis vaccine, adsorbed Bryce Wise Work Phone: [facility] Work Phone: 08-20-2007 tetanus toxoid, redu usman diphtheria toxoid, and acellular pertussis vaccine, adsorbed Edward Craft DO Work Phone: [employer] Work Phone: 08-20-2007 tetanus toxoid, redu usman diphtheria toxoid, and acellular pertussis vaccine, adsorbed Shira Ward [facility] Work Phone: 09-11-2001 diphtheria, tetanus toxoids and acellular pertussis vaccine, unspecified formulation Edward Craft DO Work Phone: [facility] [employer] [facility] Work Phone: 09-11-2001 measles, mumps and rubella virus vaccine Edward Craft DO Work Phone: [facility] Work Phone: 09-11-2001 poliovirus vaccine, inactivated Edward Craft DO Work Phone: [facility] Work Phone: 09-11-2001 poliovirus vaccine, unspecified formulation Edward Craft DO Work Phone: [facility] [facility] Work Phone: 09-11-2001 diphtheria, tetanus toxoids and acellular pertussis vaccine Shirabetty Ward [facility] Work Phone: 09-11-2001 measles, mumps and rubella virus vaccine [facility] Work Phone: 09-11-2001 poliovirus vaccine, inactivated Shirabetty GregoryW[facility] Work Phone: 10-10-2000 pneumococcal conjuga te vaccine, 7 valent Edward A Craft Work Phone: [facility] Work Phone: 10-10-2000 pneumococcal polysaccharide vaccine, 23 valent Bryce Melendrezft DO Work Phone: [facility] Work Phone: 10-10-2000 pneumococcal polysaccharide vaccine, 23 valent Shira Mcqueenbola [facility] Work Phone: 04-28-1998 diphtheria, tetanus toxoids and acellular pertussis vaccine, unspecified formulation Edjudith Craft DO Work Phone: [employer] Work Phone: 04-28-1998 haemophilus influenz ae type b vaccine, conjugate unspecified formulation Edjudith Craft DO Work Phone: [employer] Work Phone: 04-28-1998 diphtheria, tetanus toxoids and acellular pertussis vaccine Shira Gregorybrian [facility] Work Phone: 04-28-1998 haemophilus influenz ae type b vaccine, PRP-OMP conjugate Shira Gregorybrian [facility] Work Phone: 01-06-1998 measles, mumps and rubella virus vaccine Edjudith Craft DO Work Phone: [employer] Work Phone: 01-06-1998 varicella virus vaccine Eddestini Wise DO Work Phone: [employer] Work Phone: 01-06-1998 measles, mumps and rubella virus vaccine Shira Sylvia [facility] Work Phone: 01-06-1998 varicella virus vaccine Shira Maryuri moscoso [facility] Work Phone: 1997 diphtheria, tetanus toxoids and acellular pertussis vaccine, unspecified formulation Edjudith Craft DO Work Phone: [employer] Work Phone: 1997 haemophilus influenz ae type b vaccine, conjugate unspecified formulation Edward Craft DO Work Phone: [employer] Work Phone: 1997 hepatitis B vaccine, pediatric or pediatric/adolescent dosage Edward Craft DO Work Phone: [employer] Work Phone: 1997 poliovirus vaccine, inactivated Edward Craft DO Work Phone: [facility] Work Phone: 1997 poliovirus vaccine, unspecified formulation Edward Clinkleft DO Work Phone: [employer] Work Phone: 1997 diphtheria, tetanus toxoids and acellular pertussis vaccine [facility] Work Phone: 1997 haemophilus influenz ae type b vaccine, PRP-OMP conjugate [facility] Work Phone: 1997 hepatitis B vaccine, adult dosage [facility] Work Phone: 1997 poliovirus vaccine, inactivated [facility] Work Phone: 1997 diphtheria, tetanus toxoids and acellular pertussis vaccine, unspecified formulation Edward Clinkleft DO Work Phone: [employer] Work Phone: 1997 haemophilus influenz ae type b vaccine, conjugate unspecified formulation Edward Clinkleft DO Work Phone: [employer] Work Phone: 1997 poliovirus vaccine, inactivated Edward Craft DO Work Phone: [facility] Work Phone: 1997 poliovirus vaccine, unspecified formulation Edward Craft DO Work Phone: [employer] Work Phone: 1997 diphtheria, tetanus toxoids and acellular pertussis vaccine [facility] Work Phone: 1997 haemophilus influenz ae type b vaccine, PRP-OMP conjugate [facility] Work Phone: 1997 poliovirus vaccine, inactivated [facility] Work Phone: 1997 diphtheria, tetanus toxoids and acellular pertussis vaccine Bryce Melendrezft Work Phone: [facility] DO Work Phone: Comment on above: Series: 1997 diphtheria, tetanus toxoids and acellular pertussis vaccine, unspecified formulation Bryce Wise DO Work Phone: [employer] Work Phone: 1997 haemophilus influenz ae type b vaccine, conjugate unspecified formulation Bryce Wise DO Work Phone: [employer] Work Phone: 1997 hepatitis B vaccine, pediatric or pediatric/adolescent dosage Bryce Wise DO Work Phone: [employer] Work Phone: 1997 poliovirus vaccine, inactivated Bryce Wise DO Work Phone: [facility] Work Phone: 1997 poliovirus vaccine, unspecified formulation Bryce Wise DO Work Phone: [employer] Work Phone: 1997 diphtheria, tetanus toxoids and acellular pertussis vaccine [facility] Work Phone: 1997 haemophilus influenz ae type b vaccine, PRP-OMP conjugate Shirabetty Ward [facility] Work Phone: 1997 hepatitis B vaccine, adult dosage [facility]ty [facility] Work Phone: 1997 poliovirus vaccine, inactivated [facility] Work Phone: 1997 hepatitis B vaccine, pediatric or pediatric/adolescent dosage [employer] Work Phone: [facility] Work Phone: diphtheria, tetanus toxoids and acellular pertussis vaccine Freeppiejudith Lingvist Work Phone: [facility] Work Phone: Comment on above: 97 Series: 97 Series: 97 Series: 04/28/98 Series: 09/11/01 Series: haemophilus influenz ae type b vaccine, PRP-OMP conjugate [employer] Work Phone: [facility] Work Phone: Comment on above: 97 Series: 97 Series: 97 Series: 04/28/98 Series: hepatitis A vaccine, unspecified formulation [employer]ith [employer] Work Phone: [facility] Work Phone: Comment on above: 08/06/12 Series: hepatitis B vaccine, adult dosage Freeppiejudith Lingvist Work Phone: [facility] Work Phone: Comment on above: 97 Series: 97 Series: measles, mumps and rubella virus vaccine [employer]judith [employer] Work Phone: [facility] Work Phone: Comment on above: 09/11/01 Series: 01/06/98 Series: meningococcal polysaccharide (groups A, C, Y and W-135) diphtheria toxoid conjugate vaccine (MCV4P) Bryce MelendrezFitly Work Phone: [facility] Work Phone: Comment on above: 01/19/09 Series: pneumococcal polysaccharide vaccine, 23 valent Bryce Zam[employer] Work Phone: [facility] Work Phone: Comment on above: 10/10/00 Series: poliovirus vaccine, inactivated Bryce Zam[employer] Work Phone: [facility] Work Phone: Comment on above: 97 Series: 97 Series: 97 Series: 09/11/01 Series: tetanus toxoid, redu usman diphtheria toxoid, and acellular pertussis vaccine, adsorbed Bryce Zam[employer] Work Phone: [facility] Work Phone: Comment on above: 08/20/07 Series: varicella virus vaccine Good [employer] Work Phone: [facility] Work Phone: Comment on above: 01/06/98 Series: NEGATED: Highlighted row has not occurred!07-05-2020 measles, mumps and rubella virus vaccine [facility] NEGATED: Highlighted row has not occurred!07-05-2020 tetanus toxoid, reduced diphtheria toxoid, and acellular pertussis vaccine, adsorbed [facility] NEGATED: Highlighted row has not occurred!07-05-2020 varicella virus vaccine [facility] Payers Date Payer Category Payer Unknown [id number] 2021 Medicaid (Managed Care) [facility] [id number] 2018 Medicaid [facility] MEDICAID [id number] 2018-Present [id number] 2018 Unknown 2017 Unknown [id number] [id number]. [id number] 2017 Unknown [id number] 2016 Medicaid [id number]. [id number] 1998 Medicaid [id number] 1997 Unknown [id number] 2.16.840.1.610073.3.579.2. 355 1997 Unknown [id number] 2.16.840.1.283110.3.579.2. 355 1997 Unknown [id number] 2.16.840.1.509880.3.579.2. 355 1997 Unknown [id number] 2.16840.1.128775.3.579.2. 355 1997 Unknown [id number] 2.16.840.1.894702.3.579.2. 355 1997 Unknown [id number] 2.16.840.1.653156.3.579.2. 355 1997 Unknown [id number] 2.16.840.1.487642.3.579.2. 355 1997 Unknown [id number] 2.16.840.1.415190.3.579.2. 355 1997 Unknown [id number] 2.16.840.1.289917.3.579.2. 355 1997 Unknown [id number] 2.16.840.1.075085.3.579.2. 903 1997 Unknown [id number] 2.16.840.1.000506.3.579.2. 903 1997 Unknown [id number] 2.16.840.1.429258.3.579.2. 903 1997 Unknown [id number] 2.16.840.1.013715.3.579.2. 903 1997 Unknown [id number] 2.16.840.1.362595.3.579.2. 902 1997 Unknown [id number] 2.16.840.1.436543.3.579.2. 902 1997 Unknown [id number] 2.16.840.1.443989.3.579.2. 903 1997 Unknown [id number] 2.16.840.1.803898.3.579.2. 185 1997 Unknown [id number] 2.16.840.1.255669.3.579.2. 900 1997 Unknown [id number] 2.16.840.1.728600.3.579.2. 182 1997 Unknown [id number] 2.16.840.1.919585.3.579.2. 182 1997 Unknown [id number] 2.16.840.1.809334.3.579.2. 182 1997 Unknown [id number] 2.16.840.1.338624.3.579.2. 182 1997 Unknown [id number] 2.16.840.1.739266.3.579.2. 983 1997 Unknown [id number] 2.16.840.1.910097.3.579.2. 983 1997 Unknown [id number] 2.16.840.1.223704.3.579.2. 983 1997 Unknown [id number] 2.16.840.1.392610.3.579.2. 1068 1997 Unknown [id number] 2.16.840.1.467966.3.579.2. 8 1997 Unknown [id number] 2.16.840.1.033479.3.579.2. 1067 1997 Unknown [id number] 2.16.840.1.226382.3.579.2. 1067 1997 Unknown [id number] 2.16.840.1.096794.3.579.2. 1067 1997 Unknown [id number] 2.16.840.1.931887.3.579.2. 1067 1997 Unknown [id number] 2.16.840.1.171960.3.579.2. 1067 1997 Unknown [id number] 2.16.840.1.987795.3.579.2. 3 1997 Unknown [id number] 2.16.840.1.388900.3.579.2. 903 1997 Unknown [id number] 2.16.840.1.965879.3.579.2. 356 1997 Unknown [id number] 2.16.840.1.164515.3.579.2. 356 1997 Unknown [id number] 2.16.840.1.096602.3.579.2. 356 1997 Unknown [id number] 2.16.840.1.131753.3.579.2. 356 1997 Unknown [id number] 2.16.840.1.040541.3.579.2. 356 1997 Unknown [id number] 2.16.840.1.736404.3.579.2. 6 1997 Unknown [id number] 2.16.840.1.460357.3.579.2. 1245 1997 Unknown [id number] 2.16.840.1.869129.3.579.2. 1245 1997 Unknown [id number] 2.16.840.1.690833.3.579.2. 1245 1997 Unknown [id number] 2.16.840.1.218636.3.579.2. 1245 1997 Unknown [id number] 2.16.840.1.106003.3.579.2. 727 1997 Unknown [id number] 2.16.840.1.953390.3.579.2. 1243 1997 Unknown [id number] 2.16.840.1.727556.3.579.2. 1243 1997 Unknown [id number] 2.16.840.1.432929.3.579.2. 4 1997 Unknown [id number] 2.16.840.1.509001.3.579.2. 5 1997 Unknown [id number] 2.16.840.1.393368.3.579.2. 727 1997 Unknown [id number] 2.16.840.1.792117.3.579.2. 727 Unknown [id number] Social History Date Type Detail Facility Start: 04-27-2020 End: 04-11-2023 Tobacco smoking status NHIS Never smoker [place] Start: 04-27-2020 End: 04-11-2023 Tobacco use and exposure Never used [place] Start: 04-27-2020 End: 08-26-2022 Alcohol intake Current non-drinker of alcohol (finding) [place] Start: 10-17-2019 [place] Start: 1997 [facility]igned At [facility] file [facility] Start: 07-23-2021 End: 04-24-2024 Exposure to SARS-CoV-2 (event) [facility] sure [facility] Start: 07-21-2020 End: 06-12-2023 Alcohol intake Ex-drinker (finding) [facility] Exposure to SARS-CoV -2 (event) Yes [facility] Start: 08-03-2021 End: 11-06-2023 Lives with mother (single parent) Lives with mother (single parent) [facility] Comment on above: 2011 Sussy was dana ing with her mother and mother's boyfriend and was not receiving good grades in school. Recently she and her mother moved in with Sussy's grandmother in [place] and Sussy seems happy about this change and grades are now A's & B's.; Tobacco smoking consumption unknown [facility] Start: 08-03-2021 End: 11-06-2023 Alcohol intake [facility] Start: 08-11-2020 History SDOH Alcohol Comment [facility] Start: 01-25-2021 History SDOH Financial 5 [employer] Work Phone: Start: 01-25-2021 End: 08-20-2022 History SDOH Food Worry 1 [employer] Work Phone: Start: 01-25-2021 End: 08-20-2022 History SDOH Transport Med 2 [employer] Work Phone: Start: 08-20-2022 History SDOH Alcohol Std Drinks 0 Guide Phone: Start: 03-09-2022 End: 11-06-2023 Tobacco use panel [facility] National Score (1-100), lower number is lower risk Not on file [facility] Tobacco smoking status No Smokin g Status Entered [facility] Start: 1997 Sex Assigned At Female F [facility] Start: 11-12-2024 Sex Female (finding) [facility] NEGATED: Highlighted row - Never smoker [facility] Work Phone: NEGATED: Highlighted rowStart: NINF History of tobacco use Passive smoker [facility] Work Phone: Medical Equipment Procedure Code Equipment Code Equipment Original Text Equipment Identifier Dates Drill Pin, Button, Biceps, 3.2mm Case [id number] Start: 05-11-2021 Comment on above: Description: Convert ed from [facility]. Please see archived information for full log information. Button, Biceps 2.6 X 12mm Case [id number] Start: 05-11-2021 Comment on above: Description: Convert ed from [facility]. Please see archived information for full log information. Functional Status Date Assessment Result Facility 12-23-2023 Functional Status N/A [facility] NEGATED: Highlighted row Functional performance Functional status health issues are not documented [facility] Work Phone: Mental Status Date Assessment Result Facility NEGATED: Highlighted row Cognitive function [Interpretation] Cognitive status health issues are not documented Disease [facility] Work Phone: Clinical Notes 09-21-2020 to 04-24-2024 Shashi Fletcher MD - 04/24/2024 2:00 PM ESTTelephone Encounter - Gaye Dickinson CMA - 04/09/2024 10:48 AM ESTTelephone Encounter - Jh Keating DO - 04/09/2024 10:48 AM EST Note Date & Type Note Facility 04-24-2024 History of Presen t illness Narrative Subjective Patient ID: Sussy Crane is a 29 y.o. female who presents for knee (Left knee, having trouble walking down stairs. Pinching feeling going down and around knee cap. She had to scoot down the stairs). L knee pain - reports when standing for long periods of time she will develop pain in her tailbone that radiates down the back of the legs into the knee - will occasionally have isolated pain in the knee - pain is generally at the anterosuperior aspect of the patella - will radiate down into the leg/foot - evelin any instability in the knee, does not worry it will give out - has no popping, locking, or clicking when walking - no pain with walking on a flat surface - pain is generally worse when standing for 3-4 hours - has worse pain in the knee when going down stairs - no numbness, tingling or weakness in the knee - has been taking occasional ibuprofen to help with pain, as well as THC to help with pain symptoms Review of Systems Constitutional: Negative for activity change, fatigue and fever. Respiratory: Negative for shortness of breath. Cardiovascular: Negative for chest pain. Neurological: Negative for dizziness and headaches. Objective BP 120/68 Pulse 82 Temp 36.8 C (98.2 F) Ht 1.626 m (5' 4 ) Wt 80.7 kg (178 lb) LMP (LMP Unknown) BMI 30.55 kg/m Physical Exam Constitutional: Appearance: Normal appearance. Musculoskeletal: General: Tenderness present. No swelling, deformity or signs of injury. Normal range of motion. Neurological: Mental Status: She is alert. Assessment/Plan Problem List Items Addressed This Visit None Visit Diagnoses Codes Sciatica of left side - Primary M54.32 stable - trial NSAID and PT referral - f/u PRN if not improving Relevant Medications naproxen (Naprosyn) 500 mg tablet Other Relevant Orders XR knee left 1-2 views Referral to Physical Therapy Chronic pain of left knee M25.562, G89.29 stable - check XR to evaluate knee - referral to PT placed - Naproxen sent to pharmacy Relevant Medications naproxen (Naprosyn) 500 mg tablet Other Relevant Orders XR knee left 1-2 views Referral to Physical Therapy documented in this encounter [facility] Work Phone: 04-09-2024 Miscellaneous Notes Patient called and was inquiring about a new patient. Will you accept? ok Left Message documented in this encounter [facility] 04-09-2024 Telephone encounter Note Patient called and was inquiring about a new patient. Will you accept? [facility] 04-09-2024 Telephone encounter Note ok [facility] Work Phone: 04-09-2024 Telephone encounter Note Left Message [facility] 2024 History of Presen t illness Narrative RETURN ENCOUNTER Chief Complaint: chronic right shoulder pain HPI: 28 year old female following up for her right shoulder. She had [facility] CSI with Dr. Sena on 08/07 and she reports about one week of relief from this. She rates pain today at 4/10 dull/aching. Pain: same AROM: same Function: same Date of Injury: 2012 Activity: overhead reaching Severity: moderate No family history on file. ROS reviewed on [facility] form which is negative except HPI. Current Outpatient Medications Medication Sig clobetasol (TEMOVATE) 0.05 % cream Apply to affected area two times a day. cholecalciferol (VITAMIN D) 1,000 unit tab tablet Take 1 tablet by mouth once daily. nitroglycerin (NITRO-BID) 2 % oint ointment Apply 1 g as directed twice daily. Naproxen SR (EC-NAPROSYN) 500 mg EC tablet Take 500 mg by mouth twice daily as needed (pain). tiZANidine HCl 2 mg capsule Take 2 mg by mouth three times daily as needed. triamcinolone acetonide (KENALOG) 0.5 % cream Apply 1 application to affected area three times daily as needed (rash). No current facility-administered medications for this visit. ALLERGIES Allergen Reactions Greenwald Rash Other reaction(s): (Rash) or (C/O a rash) Morphine Itching Nickel Rash Other reaction(s): (Rash) or (C/O a rash) Allergies, medications, past surgical history, family history and past medical history were reviewed per this encounter. Physical Examination: Region: Shoulder General Appearance: Appears healthy, well-nourished, no deformities. Left Exam: AROM: normal PROM: normal Point Tenderness location: none Swelling/Effusion: none Stability: normal Muscle Strength: normal Sensation:normal Reflexes:normal Special Tests: None Skin: normal Right Exam: Notable and significant periscapular and trapezial muscle hypertonicity AROM: decreased extension and decreased flexion, forward flexion to 160 abduction to 120 with guarding, ER to 50, IR to T10 PROM: Somewhat active range of motion, forward flexion to 170, abduction to 160 Point Tenderness location: Tenderness to palpation over the parascapular musculature, trapezius, AC joint and mildly over the clavicle, mild bicipital groove tenderness Swelling/Effusion: none Stability: No evidence of gross shoulder instability with loading or shuck Muscle Strength: 4+/5 shoulder abduction and forward flexion, 5/5 elbow flexion extension Sensation:normal Reflexes:normal Special Tests: Positive TTP over AC joint, negative bearhug, negative Speed, negative Neer, pain over trapezius and posterior shoulder with resisted shoulder abduction Skin: normal Images have been reviewed and discussed with patient. No new imaging today. Previously completed x-ray and MRI from June reviewed again. Assessment and Plan: Sussy returns now status post Brisement in July. States that she is having the exact same pain as at her last visit in June. She was referred to physical therapy and completed 4 visits after her procedure. She continues to describe a constant, aching, 4/10 pain at all times and does not necessarily point to any one activity exacerbating the pain. This is a multiply operated right shoulder with prior biceps tenodesis and labral repair/revision at an outside facility. On examination she does appear to have significant periscapular and trapezial hypertonicity still but her range of motion is improved from our last documentation. There is not concern for a frozen shoulder at this time but she does demonstrate considerable muscle hypertonicity which would benefit from soft tissue work. Additionally we explained that the rehabilitation and physical therapy to this point has not been significant enough to lead to complete improvement and our recommendation would be for a continued course of physical therapy and home programming targeted at soft tissue work and stretching with periscapular muscle strengthening and stabilization techniques. There is no indication at this time in reviewing the MRI and her exam for a surgical procedure and this was explained to her in detail. She was understanding of the plan for continued therapy and the expectation for persistent pain as long as restrictions to motion exist. She will follow up as needed. [facility] STAFF PHYSICIAN NOTE OF PERSONAL INVOLVEMENT IN CARE Resident's history reviewed. I have personally examined the patient and repeated the stack components of the exam/history. The assessment and plan were formulated and discussed with the resident/fellow. Please see my below dicatation for all pertinent highlights, including historical emphasis, clinical exam, tests ordered, and the plan moving forward. See resident's note for additional details. Regarding the plan, we have had an in depth discussion today regarding the current symptomatology and possible causes for the current symptoms. This discussion included a personal review of all the available imaging studies with the patient, pertinent lab values, and highlighting stack findings. In Summary: Highlights: Agree with above. Supine active range of motion is 260 degrees of forward elevation and symmetric external rotation. Range of motion is significantly improved after the breeze mom. 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 There is no role for surgical intervention. Informed her that after multiple surgeries pain relief is relatively unpredictable and she will probably always be aware of this shoulder. Continue with physical therapy and transition to home exercise program which would likely require a long-term effort. Alma Cavanaugh MD Sports Medicine/Orthopaedic Surgery documented in this encounter [facility] 2024 Note HNO ID: [id number] Author: ALMA CAVANAUGH MD Service: ? Author Type: Physician Type: Progress Notes Filed: 2024 10:18 Note Text: RETURN ENCOUNTER Chief Complaint: chronic right shoulder pain HPI: 28 year old female following up for her right shoulder. She had [facility] CSI with Dr. Sena on 08/07 and she reports about one week of relief from this. She rates pain today at 4/10 dull/aching. Pain: same AROM: same Function: same Date of Injury: 2012 Activity: overhead reaching Severity: moderate No family history on file. ROS reviewed on [facility] form which is negative except HPI. Current Outpatient Medications Medication Sig clobetasol (TEMOVATE) 0.05 % cream Apply to affected area two times a day. cholecalciferol (VITAMIN D) 1,000 unit tab tablet Take 1 tablet by mouth once daily. nitroglycerin (NITRO-BID) 2 % oint ointment Apply 1 g as directed twice daily. Naproxen SR (EC-NAPROSYN) 500 mg EC tablet Take 500 mg by mouth twice daily as needed (pain). tiZANidine HCl 2 mg capsule Take 2 mg by mouth three times daily as needed. triamcinolone acetonide (KENALOG) 0.5 % cream Apply 1 application to affected area three times daily as needed (rash). No current facility-administered medications for this visit. ALLERGIES Allergen Reactions Greenwald Rash Other reaction(s): (Rash) or (C/O a rash) Morphine Itching Nickel Rash Other reaction(s): (Rash) or (C/O a rash) Allergies, medications, past surgical history, family history and past medical history were reviewed per this encounter. Physical Examination: Region: Shoulder General Appearance: Appears healthy, well-nourished, no deformities. Left Exam: AROM: normal PROM: normal Point Tenderness location: none Swelling/Effusion: none Stability: normal Muscle Strength: normal Sensation:normal Reflexes:normal Special Tests: None Skin: normal Right Exam: Notable and significant periscapular and trapezial muscle hypertonicity AROM: decreased extension and decreased flexion, forward flexion to 160 abduction to 120 with guarding, ER to 50, IR to T10 PROM: Somewhat active range of motion, forward flexion to 170, abduction to 160 Point Tenderness location: Tenderness to palpation over the parascapular musculature, trapezius, AC joint and mildly over the clavicle, mild bicipital groove tenderness Swelling/Effusion: none Stability: No evidence of gross shoulder instability with loading or shuck Muscle Strength: 4+/5 shoulder abduction and forward flexion, 5/5 elbow flexion extension Sensation:normal Reflexes:normal Special Tests: Positive TTP over AC joint, negative bearhug, negative Speed, negative Neer, pain over trapezius and posterior shoulder with resisted shoulder abduction Skin: normal Images have been reviewed and discussed with patient. No new imaging today. Previously completed x-ray and MRI from June reviewed again. Assessment and Plan: Sussy returns now status post Brisement in July. States that she is having the exact same pain as at her last visit in June. She was referred to physical therapy and completed 4 visits after her procedure. She continues to describe a constant, aching, 4/10 pain at all times and does not necessarily point to any one activity exacerbating the pain. This is a multiply operated right shoulder with prior biceps tenodesis and labral repair/revision at an outside facility. On examination she does appear to have significant periscapular and trapezial hypertonicity still but her range of motion is improved from our last documentation. There is not concern for a frozen shoulder at this time but she does demonstrate considerable muscle hypertonicity which would benefit from soft tissue work. Additionally we explained that the rehabilitation and physical therapy to this point has not been significant enough to lead to complete improvement and our recommendation would be for a continued course of physical therapy and home programming targeted at soft tissue work and stretching with periscapular muscle strengthening and stabilization techniques. There is no indication at this time in reviewing the MRI and her exam for a surgical procedure and this was explained to her in detail. She was understanding of the plan for continued therapy and the expectation for persistent pain as long as restrictions to motion exist. She will follow up as needed. [facility] STAFF PHYSICIAN NOTE OF PERSONAL INVOLVEMENT IN CARE Resident's history reviewed. I have personally examined the patient and repeated the stack components of the exam/history. The assessment and plan were formulated and discussed with the resident/fellow. Please see my below dicatation for all pertinent highlights, including historical emphasis, clinical exam, tests ordered, and the plan moving forward. See resident's note for additional details. Regarding the plan, we have had an in depth discu (more content not included)... [facility] 12-23-2023 Hospital Discharg e instructions Patient Education 12/23/2023 21:20:51 Medical Screening Exam Medical Screening Exam A medical screening exam (MSE) helps to determine whether you need immediate medical treatment relating to any number of symptoms you are having. This type of exam may be done in an emergency department, an urgent care setting, or your health care provider's office. Depending on your symptoms and severity, you may need additional tests or medical therapy. It is important to note that an MSE does not necessarily mean that you will need or receive further medical testing or interventions if your symptoms are not deemed to be medically urgent (emergent). Tell a health care provider about: Any allergies you have. All medicines you are taking, including vitamins, herbs, eye drops, creams, and [id number] medicines. Any problems you or family members have had with anesthetic medicines. Any bleeding problems you have. Any surgeries you have had. Any medical conditions you have. Whether you are or may be . What happens during the test? During the exam, a health care provider does a short, often focused, physical exam and asks about your medical history to assess: Your current symptoms. Your overall health. Your need for possible further medical intervention. What can I expect after the test? If you have a regular health care provider, make an appointment for a follow-up visit with him or her. If you do not have a regular health care provider, ask about resources in your community. Your medical screening exam may determine that: You do not need emergency treatment at this time. You need treatment right away. You need to be transferred to another medical center. This may happen if you need an emergent specialist or therapeutic consultant that is not available at the medical center you are at. You need to have more tests. A medical administrative may be consulted if needed. Get help right away if: Your condition gets worse. You develop new or troubling symptoms before you see your health care provider. These symptoms may represent a serious problem that is an emergency. Do not wait to see if the symptoms will go away. Get medical help right away. Call your local emergency services (911 in the [place] Do not drive yourself to the hospital. Summary A medical screening exam helps to determine whether you need medical treatment right away. This type of exam may be done in an emergency department, an urgent care setting, or your health care provider's office. During the exam, a health care provider does a short physical exam and asks about your current symptoms and overall health. Depending on the exam, more tests or therapies may be ordered. However, an MSE does not necessarily mean that you will have further medical testing if your symptoms are not deemed to be urgent. If you need further care that is not offered at your current medical center, you may need to be transferred to another facility. This information is not intended to replace advice given to you by your health care provider. Make sure you discuss any questions you have with your health care provider. Document Revised: 01/26/2022 Document Reviewed: 09/23/2021 [email or web address] Patient Education 2022 [employer] Follow Up Care 12/23/2023 19:12:12 With:BRYCE WISE Address: [address] [place] [address] [phone] Business (1) When:12/26/2023 21:04:07 Comments:Call Dr for diagnosis based follow up [facility] 12-23-2023 Note ED Patient Education Note Emergency Medicine Medical Screening Exam A medical screening exam (MSE) helps to determine whether you need immediate medical treatment relating to any number of symptoms you are having. This type of exam may be done in an emergency department, an urgent care setting, or your health care provider's office. Depending on your symptoms and severity, you may need additional tests or medical therapy. It is important to note that an MSE does not necessarily mean that you will need or receive further medical testing or interventions if your symptoms are not deemed to be medically urgent (emergent). Tell a health care provider about: ? Any allergies you have. ? All medicines you are taking, including vitamins, herbs, eye drops, creams, and rnnz-oin-bhbixgu medicines. ? Any problems you or family members have had with anesthetic medicines. ? Any bleeding problems you have. ? Any surgeries you have had. ? Any medical conditions you have. ? Whether you are or may be . What happens during the test? During the exam, a health care provider does a short, often focused, physical exam and asks about your medical history to assess: ? Your current symptoms. ? Your overall health. ? Your need for possible further medical intervention. What can I expect after the test? If you have a regular health care provider, make an appointment for a follow-up visit with him or her. If you do not have a regular health care provider, ask about resources in your community. Your medical screening exam may determine that: ? You do not need emergency treatment at this time. ? You need treatment right away. ? You need to be transferred to another medical center. This may happen if you need an emergent specialist or therapeutic consultant that is not available at the medical center you are at. ? You need to have more tests. A medical administrative may be consulted if needed. Get help right away if: ? Your condition gets worse. ? You develop new or troubling symptoms before you see your health care provider. These symptoms may represent a serious problem that is an emergency. Do not wait to see if the symptoms will go away. Get medical help right away. Call your local emergency services (911 in the [place] Do not drive yourself to the hospital. Summary ? A medical screening exam helps to determine whether you need medical treatment right away. This type of exam may be done in an emergency department, an urgent care setting, or your health care provider's office. ? During the exam, a health care provider does a short physical exam and asks about your current symptoms and overall health. ? Depending on the exam, more tests or therapies may be ordered. However, an MSE does not necessarily mean that you will have further medical testing if your symptoms are not deemed to be urgent. ? If you need further care that is not offered at your current medical center, you may need to be transferred to another facility. This information is not intended to replace advice given to you by your health care provider. Make sure you discuss any questions you have with your health care provider. Document Revised: 01/26/2022 Document Reviewed: 09/23/2021 [email or web address] Patient Education ? 2022 [employer] 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 Chronic pelvic pain Worse: sex, movement, unknown Improved: Nothing know Pain described as aching, burning stabing cramping bladder urgency no incontence Daily Bowel movements. no increase in pain. 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 HISTORY: Past Medical History: Diagnosis Date Achilles tendinitis, unspecified leg Achilles tendonitis Personal history of extracorporeal membrane oxygenation (ECMO) Personal history of extracorporeal membrane oxygenation (ECMO) Unspecified fracture of shaft of right fibula, initial encounter for closed fracture Bilateral fibular fractures Vitamin D deficiency, unspecified Vitamin D deficiency Past Surgical History: Procedure Laterality Date HYSTERECTOMY OTHER SURGICAL HISTORY 07/31/2019 Arthroscopy OTHER SURGICAL HISTORY 09/20/2016 Oral Surgery Tooth Extraction [place] Tooth OTHER SURGICAL HISTORY 06/15/2021 Shoulder surgery OTHER SURGICAL HISTORY 05/19/2022 Abdominal surgery OTHER SURGICAL HISTORY 09/25/2021 Cholecystectomy OTHER SURGICAL HISTORY 05/01/2021 Complete colonoscopy Social History Socioeconomic History Marital status: Single Spouse name: Not on file Number of children: Not on file Years of education: Not on file Highest education level: Not on file Occupational History Not on file Tobacco Use Smoking status: Never Passive exposure: Never Smokeless tobacco: Never Vaping Use Vaping status: Never Used Substance and Sexual Activity Alcohol use: Yes Drug use: Yes Types: Marijuana Sexual activity: Yes Partners: Male control/protection: Surgical Other Topics Concern Not on file Social History Narrative Not on file Social Determinants of Health Financial Resource Strain: Low Risk (07/11/2023) [facility] Overall Financial Resource Strain (CARDIA) Difficulty of Paying Living Expenses: Not hard at all Food Insecurity: Not on file (07/20/2023) Transportation Needs: Unknown (07/11/2023) Received from [facility] PRAPARE - Transportation Lack of Transportation (Medical): Not on file Lack of Transportation (Non-Medical): No Physical Activity: Not on file Stress: Not on file Social Connections: Not on file Intimate Partner Violence: Not on file Housing Stability: Unknown (07/11/2023) Received from [facility] Housing Stability Vital Sign Unable to Pay for Housing in the Last Year: Not on file Number of Places Lived in the Last Year: Not on file Unstable Housing in the Last Year: No Cancer-related family history is not on file. PHYSICAL EXAM: BP 102/70 Wt 78.5 kg (173 lb) LMP (LMP Unknown) BMI 29.70 kg/m GEN: A&O, NAD HEENT: head HC/AT, no visible goiter PSYCH: normal affect, non-anxious IMPRESSION/PLAN: 28-year-old chronic pain syndrome, myofascial pelvic pain, urinary urgency, vasomotor symptoms? Versus GI induced autonomic changes Pelvic floor physical therapy Myrbetriq Pelvic ultrasound Follow-up in 1 month eMño Retana MD documented in this [facility] Work Phone: 1(949) [id number] NoteHNO ID: [id number] Author: LETI DOMÍNGUEZ PT Service: ? Author Type: Physical Therapist Type: Progress Notes Filed: 09/20/2023 15:50 Note Text: Episode Visit Count: 3 Therapist That Will Accept/Oversee The Plan Of Care: Leti Domínguez Start of Care Date: 08/08/23 Onset Date: 05/29/23 Plan of Care Certification Date: 08/08/23 Next Certification Due Date: 10/03/23 REHABILITATION AND SPORTS THERAPY PHYSICAL THERAPY DISCONTINUANCE OF CARE PLAN OF CARE UPDATE: Assessment: Sussy Crane is discontinued from Physical Therapy services due to maximal benefit.. Patient was seen for 3 visits from Start of Care Date: 08/08/23 to 09/20/2023 and treatment included: Therapeutic exercise, Manual therapy, and Patient/Family/Caregiver Education. Patient has improved her active range of motion and strength in her right shoulder. She has not had any change in her right shoulder pain. Patient is following up with Dr. Cavanaugh in October Goals Goals for Episode of Care: created on 08/08/23 through 10/03/23, updated 09/20/2023 Patient reported outcome of physical function and self-efficacy will increase T-score by a minimum 5 points. Not tested Cobb in home exercise program. met Patient will decrease pain rating by 2 points to meet minimal clinical important difference for numeric pain rating scale. Not met Patient will increase active ROM of right shoulder to 150 degrees elevation, 65 degrees external rotation and 60 degrees extension to allow pt to to improve postural alignment and to improve performance of ADLs. met Patient will demonstrate increase in right shoulder strength to at least 4+/5 during manual muscle testing in order to improve function for basic self-care tasks, home management tasks, leisure / recreation skills, and light functional tasks. met Improve postural awareness. met Patient will be able to correct postural deviations independently in order to allow for normal mechanics, to decrease current pain , and prevent future recurrence. Not met Patient Goals: decrease right arm pain, more use of shoulder SUBJECTIVE: . Patient returns to therapy noting ongoing pain in her right shoulder. Reports she has not been performing her home exercise program. Keeps forgetting. Pain: Pain Pain Level: 6 Pain Location: Shoulder - Right Description: Sharp, Throbbing, Burning Frequency: Continuous Post Treatment Pain Post Treatment Pain Level: No Change PROMIS Scales 08/07/2023 06/28/2022 Higher is Better Phys Func - Score 38 (moderate dysfunction) 41 (mild dysfunction) Phys Func - Percentile 12 18 Self-Eff Symptom - Score 36 (Low) Self-Eff Symptom - Percentile 8 T-scores: mean of general population = 50. 5 points is clinically meaningfully difference Percentiles provide an indication of how the patient's score ranks in relation to the general population. Higher percentile rankings indicate better function/quality of life. 50th percentile is the average of the general population and indicates half of respondents had a worse score. OBJECTIVE MEASURES WITH LEVEL OF FUNCTION: Posture / Alignment R Shoulder Alignment: Rounded shoulder, Protracted scapula, Humeral internal rotation UE AROM R Shoulder Extension: 70 Degrees R Shoulder Flex: 165 Degrees R Shoulder ABduction: 165 Degrees R Shoulder External Rotation: 68 Degrees L Shoulder Extension: 70 Degrees L Shoulder Flex: 170 Degrees L Shoulder ABduction: 170 Degrees L Shoulder External Rotation: 80 Degrees UE Joint Mobility R Shoulder joint mobility: WNL UE and Cervical Strength R UE Strength: 4+/5 shoulder L UE Strength: 5/5 TREATMENT: Therapeutic Exercise: 2: prone shoulder extension 15 x 2 3: prone shoulder horizital abduction 10 x 4: supine shoulder flexion with wand 20 x 5: supine shoulder internal and external rotation 20 x 6: side lying scapular posterior depression with manual resistance. 7: seated scapular retraction 10 x 2 8: discussion on stratagies to remeber her home program Skilled Intervention: Patient was educated in proper exercise technique and purpose for exercises. Skilled judgment was used in selection of appropriate interventions. Correct performance of therapeutic exercises was facilitated with verbal, visual, and tactile cuing. Billing Therapeutic Exercise Treatment Minutes: 26 Total Session Time (minutes): 26 Session Start Time : 1513 Session Stop Time : 1539 eLti Domínguez [facility]04-24-2024 History of Present illness Narrative* Leti Domínguez, PT - 09/20/2023 3:13 PM EDT Images from the original note were not included. Episode Visit Count: 3 Therapist That Will Accept/Oversee The Plan Of Care: Leti Domínguez Start of Care Date: 08/08/23 Onset Date: 05/29/23 Plan of Care Certification Date: 08/08/23 Next Certification Due Date: 10/03/23 REHABILITATION AND SPORTS THERAPY PHYSICAL THERAPY DISCONTINUANCE OF CARE PLAN OF CARE UPDATE: Assessment: Sussy Crane is discontinued from Physical Therapy services due to maximal benefit.. Patient was seen for 3 visits from Start of Care Date: 08/08/23 to 09/20/2023 and treatment included:Therapeutic exercise, Manual therapy, and Patient/Family/Caregiver Education. Patient has improved her active range of motion and strength in her right shoulder. She has not had any change in her right shoulder pain. Patient is following up with Dr. Cavanaugh in October Goals Goals for Episode of Care: created on 08/08/23 through 10/03/23, updated 09/20/2023 Patient reported outcome of physical function and self-efficacy will increase T- score by a minimum 5 points. Not tested Cobb in home exercise program. met Patient will decrease pain rating by 2 points to meet minimal clinical important difference for numeric pain rating scale. Not met Patient will increase active ROM of right shoulder to 150 degrees elevation, 65 degrees external rotation and 60 degrees extension to allow pt to to improve postural alignment and to improve performance of ADLs. met Patient will demonstrate increase in right shoulder strength to at least 4+/5 during manual muscle testing in order to improve function for basic self-care tasks, home management tasks, leisure / recreation skills, and light functional tasks. met Improve postural awareness. met Patient will be able to correct postural deviations independently in order to allow for normal mechanics, to decrease current pain , and prevent future recurrence. Not met Patient Goals: decrease right arm pain, more use of shoulder SUBJECTIVE: . Patient returns to therapy noting ongoing pain in her right shoulder. Reports she hasnot been performing her home exercise program. Keeps forgetting. Pain: Pain Pain Level: 6 Pain Location: Shoulder - Right Description: Sharp, Throbbing, Burning Frequency: Continuous Post Treatment Pain Post Treatment Pain Level: No Change PROMIS Scales 08/07/2023 06/28/2022 Higher is Better Phys Func - Score 38 (moderate dysfunction) 41 (mild dysfunction) Phys Func - Percentile 12 18 Self-Eff Symptom - Score 36 (Low) Self-Eff Symptom - Percentile 8 T-scores: mean of general population = 50. 5 points is clinically meaningfully difference Percentiles provide an indication of how the patient's score ranks in relation to the general population. Higher percentile rankings indicate better function/quality of life. 50th percentile is the average of the general population and indicates half of respondents had a worse score. OBJECTIVE MEASURES WITH LEVEL OF FUNCTION: Posture / Alignment R Shoulder Alignment: Rounded shoulder, Protracted scapula, Humeral internal rotation UE AROM R Shoulder Extension: 70 Degrees R Shoulder Flex: 165 Degrees R Shoulder ABduction: 165 Degrees R Shoulder External Rotation: 68 Degrees L Shoulder Extension: 70 Degrees L Shoulder Flex: 170 Degrees L Shoulder ABduction: 170 Degrees L Shoulder External Rotation: 80 Degrees UE Joint Mobility R Shoulder joint mobility: WNL UE and Cervical Strength R UE Strength: 4+/5 shoulder L UE Strength: 5/5 TREATMENT: Therapeutic Exercise: 2: prone shoulder extension 15 x 2 3: prone shoulder horizital abduction 10 x 4: supine shoulder flexion with wand 20 x 5: supine shoulder internal and external rotation 20 x 6: side lying scapular posterior depression with manual resistance. 7: seated scapular retraction 10 x 2 8: discussion on stratagies to remeber her home program Skilled Intervention: Patient was educated in proper exercise technique and purpose for exercises. Skilled judgment was used in selection of appropriate interventions. Correct performance of therapeutic exercises was facilitated with verbal, visual, and tactile cuing. Billing Therapeutic Exercise Treatment Minutes: 26 Total Session Time (minutes): 26 Session Start Time : 1512 Session Stop Time : 1539 Leti Domínguez PT [facility] NoteHNO ID: [id number] Author: LETI DOMÍNGUEZ PT Service: ? Author Type: Physical Therapist Type: Progress Notes Filed: 08/29/2023 14:11 Note Text: Addend added onset date Leti Domínguez PT, DPT, [facility]24 NoteHNO ID: [id number] Author: LETI DOMÍNGUEZ PT Service: ? Author Type: Physical Therapist Type: Progress Notes Filed: 08/29/2023 16:08 Note Text: Episode Visit Count: 2 Therapist That Will Accept/Oversee The Plan Of Care: Leti Domínguez Start of Care Date: 08/08/23 Onset Date: 05/29/23 Plan of Care Certification Date: 08/08/23 Next Certification Due Date: 10/03/23 REHABILITATION AND SPORTS THERAPY PHYSICAL THERAPY TREATMENT NOTE ASSESSMENT: Sussy Crane tolerated the session with fatigue and expected muscle soreness. She demonstrated difficulty with increased pain in her right shoulder. She has improved shoulder active range of motion compared to her last visit. . The patient will continue to benefit from ongoing skilled physical therapy to progress toward set goals. PLAN FOR NEXT VISIT: progress note next visit SUBJECTIVE: Patient retruns to therapy today following her Brismont procedure. She felt good for 1 week, had no pain, Was able to lay on it. Pain has returned, feels like she may have popped it out again . Pain: Pain Pain Level: 5 Pain Location: Shoulder - Right Description: Sharp, Throbbing Frequency: Continuous Post Treatment Pain Post Treatment Pain Level: No Change OBJECTIVE MEASURES WITH LEVEL OF FUNCTION: Posture / Alignment Posture: Forward head R Shoulder Alignment: Rounded shoulder, Protracted scapula, Humeral internal rotation UE AROM R Shoulder Extension: 60 Degrees R Shoulder Flex: 160 Degrees R Shoulder ABduction: 160 Degrees R Shoulder External Rotation: 65 Degrees UE and Cervical Strength R UE Strength: 4-/5 shoulder TREATMENT: Therapeutic Exercise: 2: PNF shoulder extension abduction with internal rotation prolonged hold isometric with manual restance 3 minutes x 2 3: PNF shoulder flexion abduction external rotation pronlonged hold isomertic with manual resistance 2 minutes x 3 4: supine shoulder internal and external rotation with shoulder at 0, 30, 60 and 90 degrees abduction slow reversals 30 x each 5: seated shoulder circles slow 30 x 2 6: seated scapular retraction 20 x 2 Skilled Intervention: Patient was educated in proper exercise technique and purpose for exercises. Skilled judgment was used in selection of appropriate interventions. Correct performance of therapeutic exercises was facilitated with verbal, visual, and tactile cuing. Manual Therapy: 1: Passive range of motion left shoulder flexion, abduction and rotation 2: soft tissue mobilization proximal triceps and teres major muscles Skilled Intervention: Manual skills to improve joint mobility, ROM, and decrease pain. Utilized anatomy knowledge of the therapist, and assessment of patient's response to intervention. Billing Therapeutic Exercise Treatment Minutes: 30 Manual TherapyTreatment Minutes: 15 Skilled Treatment Time Minutes (timed and untimed codes): 45 Total Session Time (minutes): 45 Session Start Time : 1415 Session Stop Time : 1500 Leti Domínguez [facility]04-02-2024 History of Present illness Narrative* Leti Domínguez, PT - 08/29/2023 2:10 PM EDT Episode Visit Count: 2 Therapist That Will Accept/Oversee The Plan Of Care: Leti Domínguez Start of Care Date: 08/08/23 Onset Date: 05/29/23 Plan of Care Certification Date: 08/08/23 Next Certification Due Date: 10/03/23 REHABILITATION AND SPORTS THERAPY PHYSICAL THERAPY TREATMENT NOTE ASSESSMENT: Sussy Crane tolerated the session with fatigue and expected muscle soreness. She demonstrated difficulty with increased pain in her right shoulder. She has improved shoulder active range of motion compared to her last visit. . The patient will continue to benefit from ongoing skilledphysical therapy to progress toward set goals. PLAN FOR NEXT VISIT: progress note next visit SUBJECTIVE: Patient retruns to therapy today following her Brismont procedure. She felt good for 1 week, had no pain, Was able to lay on it. Pain has returned, feels like she may have popped it out again . Pain: Pain Pain Level: 5 Pain Location: Shoulder - Right Description: Sharp, Throbbing Frequency: Continuous Post Treatment Pain Post Treatment Pain Level: No Change OBJECTIVE MEASURES WITH LEVEL OF FUNCTION: Posture / Alignment Posture: Forward head R Shoulder Alignment: Rounded shoulder, Protracted scapula, Humeral internal rotation UE AROM R Shoulder Extension: 60 Degrees R Shoulder Flex: 160 Degrees R Shoulder ABduction: 160 Degrees R Shoulder External Rotation: 65 Degrees UE and Cervical Strength R UE Strength: 4-/5 shoulder TREATMENT: Therapeutic Exercise: 2: PNF shoulder extension abduction with internal rotation prolonged hold isometric with manual restance 3 minutes x 2 3: PNF shoulder flexion abduction external rotation pronlonged hold isomertic with manual resistance 2 minutes x 3 4: supine shoulder internal and external rotation with shoulder at 0, 30, 60 and 90 degrees abduction slow reversals 30 x each 5: seated shoulder circles slow 30 x 2 6: seated scapular retraction 20 x 2 Skilled Intervention: Patient was educated in proper exercise technique and purpose for exercises. Skilled judgment was used in selection of appropriate interventions. Correct performance of therapeutic exercises was facilitated with verbal, visual, and tactile cuing. Manual Therapy: 1: Passive range of motion left shoulder flexion, abduction and rotation 2: soft tissue mobilization proximal triceps and teres major muscles Skilled Intervention: Manual skills to improve joint mobility, ROM, and decrease pain. Utilized anatomy knowledge of the therapist, and assessment of patient's response to intervention. Billing Therapeutic Exercise Treatment Minutes: 30 Manual TherapyTreatment Minutes: 15 Skilled Treatment Time Minutes (timed and untimed codes): 45 Total Session Time (minutes): 45 Session Start Time : 1415 Session Stop Time : 1500 Leti Domínguez PT documented [facility]03[facility]24 NoteHNO ID: [id number] Author: DANIEL SENA, DO Service: ? Author Type: Physician Type: Progress Notes Filed: 08/08/2023 12:05 Note Text: Sussy Crane is here today at request of Dr. Alma Cavanaugh specifically for consultation of my opinion in regards to the chief complaint listed below. Correspondence will be shared today via the [employer] electronic health record or through regular mail, where applicable. CHIEF COMPLAINT: Sussy Crane is a 28 year old female who presents today for new evaluation of right shoulder. CONSULTATION NOTE Correspondence will be shared today via the [employer] electronic health record or through regular mail, where applicable. HISTORY OF PRESENT ILLNESS: PAIN EVALUATION 08/06/2023 2302 08/08/2023 0925 Pain Level: 5 5 Pain Location: Shoulder-Right Shoulder-Right Description: Aching;Burning;Contraction;Cramping;Dull;Numbness;Pressure;Radiating;Sharp;Shoot ing;Sore;Spasm;Stabbing;Stiffness;Throbbing Aching;Burning;Sharp;Sore;Stabbing;Tightness;Stiffness Duration Amount of Time: -- 10 Duration Units: Days Years Frequency: Continuous Continuous Intervention/Comfort measure: Medication;Reposition;Relaxation;Heat Medication;Cold;Heat;Splinting I personally reviewed previous notes by the referring physician regarding this complaint. SOCIAL HISTORY: Tobacco Use: Never PHYSICAL EXAMINATION: Decreased AROM of the right shoulder CLINICAL IMPRESSION / ASSESSMENT: (M25.511, G89.29) Chronic right shoulder pain (primary encounter diagnosis) RECOMMENDATION / PLAN: Brisement procedure performed as detailed below in PROCEDURE NOTE Follow-up in 1 month Large Joint Arthro/Inj: R glenohumeral Informed Consent Consent Obtained: Verbal Campton Protocol A moment to CARE was completed. SIGN IN Personnel directly involved with the procedure wore the appropriate PPE. Special Equipment: N/A Patient/Surrogate Stated/Verified: Patient name, Date of , Relevant allergies and Intended procedure TIME OUT Intended patient and procedure match the source document(s). Relevant labs, photos, and/or imaging studies have been reviewed. Correct side/site marked and visible. Medications required for procedure verified. No fire risk assessment and interventions applicable. No implant(s) inserted. 08/08/2023 12:04 PM The procedure site was prepped in the usual sterile fashion. Site: R glenohumeral Details:Musculoskeletal ultrasound was utilized to successfully localize placement of the injection needle at the appropriate site. Ultrasound images demonstrating local vasculature and demonstrating injection of solution were saved. Medications: 80 mg triamcinolone acetonide 40 mg/mL Anesthetics: 8 mL lidocaine (PF) 10 mg/mL (1 %); 4 mL ROPivacaine (PF) 5 mg/mL (0.5 %); 5 mL sterile water Outcome: Tolerated well, no immediate complications Post-injection instructions were reviewed with the patient and the patient voiced understanding of these instructions. SIGN OUT All instruments, equipment, possible retained foreign bodies accounted for. Nerve Block: upper extremity Informed Consent Consent Obtained: Verbal Campton Protocol A moment to CARE was completed. SIGN IN Personnel directly involved with the procedure wore the appropriate PPE. Special Equipment: N/A Patient/Surrogate Stated/Verified: Patient name, Date of , Intended procedure and Relevant allergies TIME OUT Intended patient and procedure match the source document(s). Relevant labs, photos, and/or imaging studies have been reviewed. Correct side/site marked and visible. Medications required for procedure verified. No fire risk assessment and interventions applicable. No implant(s) inserted. 08/08/2023 12:04 PM Body area: upper extremity Nerve: suprascapular Laterality: right Patient position: sitting Location technique: ultrasound guidance Medications: 5 mL lidocaine (PF) 10 mg/mL (1 %) SIGN OUT All instruments, equipment, possible retained foreign bodies accounted for. Daniel Sena [facility]03-12-2024 History of Present illness Narrative* Daniel Sena, DO - 08/08/2023 12:03 PM EDTAssociated Order(s): Large Joint Arthro/Inj: R glenohumeral; Nerve Block: upper extremity Post-Procedure Diagnose(s): Chronic right shoulder pain Images from the original note were not included. Sussy Crane is here today at request of Dr. Alma Cavanaugh specifically for consultation of my opinion in regards to the chief complaint listed below. Correspondence will be shared today via the [employer] electronic health record or through regular mail, where applicable. CHIEF COMPLAINT: Sussy Crane is a 28 year old female who presents today for new evaluation of right shoulder. CONSULTATION NOTE Correspondence will be shared today via the [employer] electronic health record or through regular mail, where applicable. HISTORY OF PRESENT ILLNESS: PAIN EVALUATION 08/06/2023 2302 08/08/2023 0925 Pain Level: 5 5 Pain Location: Shoulder-Right Shoulder-Right Description: Aching;Burning;Contraction;Cramping;Dull;Numbness;Pressure;Radiating;Sharp;Shoot ing;Sore;Spasm;Stabbing;Stiffness;Throbbing Aching;Burning;Sharp;Sore;Stabbing;Tightness;Stiffness Duration Amount of Time: -- 10 Duration Units: Days Years Frequency: Continuous Continuous Intervention/Comfort measure: Medication;Reposition;Relaxation;Heat Medication;Cold;Heat;Splinting I personally reviewed previous notes by the referring physician regarding this complaint. SOCIAL HISTORY: Tobacco Use: Never PHYSICAL EXAMINATION: Decreased AROM of the right shoulder CLINICAL IMPRESSION / ASSESSMENT: (M25.511, G89.29) Chronic right shoulder pain (primary encounter diagnosis) RECOMMENDATION / PLAN: Brisement procedure performed as detailed below in PROCEDURE NOTE Follow-up in 1 month Large Joint Arthro/Inj: R glenohumeral Informed Consent Consent Obtained: Verbal Campton Protocol A moment to CARE was completed. SIGN IN Personnel directly involved with the procedure wore the appropriate PPE. Special Equipment: N/A Patient/Surrogate Stated/Verified: Patient name, Date of , Relevant allergies and Intended procedure TIME OUT Intended patient and procedure match the source document(s). Relevant labs, photos, and/or imaging studies have been reviewed. Correct side/site marked and visible. Medications required for procedure verified. No fire risk assessment and interventions applicable. No implant(s) inserted. 08/08/2023 12:04 PM The procedure site was prepped in the usual sterile fashion. Site: R glenohumeral Details:Musculoskeletal ultrasound was utilized to successfully localize placement of the injectionneedle at the appropriate site. Ultrasound images demonstrating local vasculature and demonstratinginjection of solution were saved. Medications: 80 mg triamcinolone acetonide 40 mg/mL Anesthetics: 8 mL lidocaine (PF) 10 mg/mL (1 %); 4 mL ROPivacaine (PF) 5 mg/mL (0.5 %); 5 mL sterile water Outcome: Tolerated well, no immediate complications Post-injection instructions were reviewed with the patient and the patient voiced understanding of these instructions. SIGN OUT All instruments, equipment, possible retained foreign bodies accounted for. Nerve Block: upper extremity Informed Consent Consent Obtained: Verbal Campton Protocol A moment to CARE was completed. SIGN IN Personnel directly involved with the procedure wore the appropriate PPE. Special Equipment: N/A Patient/Surrogate Stated/Verified: Patient name, Date of , Intended procedure and Relevant allergies TIME OUT Intended patient and procedure match the source document(s). Relevant labs, photos, and/or imaging studies have been reviewed. Correct side/site marked and visible. Medications required for procedure verified. No fire risk assessment and interventions applicable. No implant(s) inserted. 08/08/2023 12:04 PM Body area: upper extremity Nerve: suprascapular Laterality: right Patient position: sitting Location technique: ultrasound guidance Medications: 5 mL lidocaine (PF) 10 mg/mL (1 %) SIGN OUT All instruments, equipment, possible retained foreign bodies accounted for. Daniel Sena DO documented [facility]03-[facility] History of Present illness Narrative* Leti Domínguez, PT - 08/08/2023 9:43 AM EDT Program_ID:[id number] Access Code: [email or web address] URL: [email or web address] Date: 08-08-2023 Prepared By: Leti Domínguez Program Notes Exercises - Supine Shoulder Flexion Extension AAROM with Dowel - 2-3 x daily - 7 x weekly - 2-3 sets - 10-15 reps - Standing Shoulder Extension with Dowel - 2-3 x daily - 7 x weekly - 2-3 sets - 10-15 reps - Standing Shoulder External Rotation AAROM with Dowel - 2-3 x daily - 7 x weekly - 2-3 sets - 10-15 reps - Shoulder Scaption AAROM with Dowel - 2-3 x daily - 7 x weekly - 2-3 sets - 10-15 reps - Seated Shoulder Circles - 2-3 x daily - 7 x weekly - 2-3 sets - 10-15 reps * Leti Domínguez, PT - 08/08/2023 9:23 AM EDT Images from the original note were not included. Episode Visit Count: 1 Therapist That Will Accept/Oversee The Plan Of Care: Leti Domínguez Start of Care Date: 08/08/23 Plan of Care Certification Date: 08/08/23 Next Certification Due Date: 10/03/23 Patient Identified by Name and Date of : Yes REHABILITATION AND SPORTS THERAPY PHYSICAL THERAPY EVALUATION PLAN OF CARE: Assessment: Sussy Crane presents with chief complaint of right shoulder pain that interferes with physical activities, recreational activities, lifting, heavy exertion, sleeping, reaching behind back, reaching overhead, use hand with arm at shoulder level, pulling, pushing, carrying . She presents with impairments in ADL's, joint mobility, patient reported outcome measures, posture, range of motion, strength, and symptom management. PROMIS (Patient- Reported Outcomes Measurement Information System) scores were reviewed and identified as a rehabilitation concern. Prognosis for therapy is Fair due to: chronic nature of impairments . She will benefit from skilled therapy services to meet thegoals established for this plan of care as noted below. Based on the patient's history, the components of the examination, the patient presentation, and required decision-making as described in this evaluation, this patient's evaluation falls into the low category of complexity as described by AMA CPT codes. Patient can benefit from skilled care to address patient's impairments and improve their function. Goals for Episode of Care: created on 08/08/23 through 10/03/23 Patient reported outcome of physical function and self-efficacy will increase T- score by a minimum 5 points. Cobb in home exercise program. Patient will decrease pain rating by 2 points to meet minimal clinical important difference for numeric pain rating scale. Patient will increase active ROM of right shoulder to 150 degrees elevation, 65 degrees external rotation and 60 degrees extension to allow pt to to improve postural alignment and to improve performance of ADLs. Patient will demonstrate increase in right shoulder strength to at least 4+/5 during manual muscle testing in order to improve function for basic self-care tasks, home management tasks, leisure / recreation skills, and light functional tasks. Improve postural awareness. Patient will be able to correct postural deviations independently in order to allow for normal mechanics, to decrease current pain , and prevent future recurrence. Patient Goals: decrease right arm pain, more use of shoulder Planned Interventions, Frequency, and Duration: Current Frequency: 1x/week (start in 3 weeks) Duration: 8 weeks Total Number of Visits Planned: 5 Planned Treatment Interventions: Therapeutic exercise (52951), Neuromuscular re- education (60686), Manual therapy (07872), Therapeutic activities (10206), Self- [place] [facility] management (81877), Gait Training (73509), Patient/Family/Caregiver Education, Body Mechanics Training, Functional training PLAN FOR NEXT VISIT: assess carry over of home program Patient demonstrates good understanding of plan of care and treatment. The above goals and plan of care were discussed and agreed upon by patient/family. SUBJECTIVE: Patient presents to therapy today with complints of right shoulder pain. Patient reports 11 years ago a fall off a horse that she landed on her right shoulder. She has had 2 labrarum repairs since the fall. Patient Goals: decrease right arm pain, more use of shoulder Patient seen today for a shared medical appointment with Dr. Sena, [place] Procedure performed today for right sided shoulder pain.. Functional Limitations: physical activities, recreational activities, lifting, heavy exertion, sleeping, reaching behind back, reaching overhead, use hand with arm at shoulder level, pulling, pushing, carrying Prior Level of Function: Independent without limitations Relevant History Past Relevant Surgical Conditions: (April 2018 - Right Shoulder - SLAP Repair - [facility] - April 2021 - Right Shoulder - SLAP Revision Repair & Bicep Tenodesis (pt has button )) Right or Left Handed: Right Home Environment Patient Lives With: Family Intake Information: Prescription present Previous Treatment: Physical Therapy , Injections , NSAIDs , Steroids Falls Interview: No positive findings with falls interview Pain: Pain Pain Level: 2 Pain Location: Shoulder - Right Description: Aching Frequency: Continuous Post Treatment Pain Post Treatment Pain Level: Better Post Treatment Pain Location: Shoulder - Right PROMIS Scales 06/28/2022 08/07/2023 Higher is Better Phys Func - Score 41 (mild dysfunction) 38 (moderate dysfunction) Phys Func - Percentile 18 12 Self-Eff Symptom - Score 36 (Low) Self-Eff Symptom - Percentile 8 08/07/2023 06/28/2022 Higher is Better Phys Func - Score 38 (moderate dysfunction) 41 (mild dysfunction) Phys Func - Percentile 12 18 Self-Eff Symptom - Score 36 (Low) Self-Eff Symptom - Percentile 8 T-scores: mean of general population = 50. 5 points is clinically meaningfully difference Percentiles provide an indication of how the patient's score ranks in relation to the general population. Higher percentile rankings indicate better function/quality of life. 50th percentile is the average of the general population and indicates half of respondents had a worse score. OBJECTIVE MEASURES WITH LEVEL OF FUNCTION: Posture / Alignment Posture: Forward head R Shoulder Alignment: Protracted scapula, Humeral internal rotation, Rounded shoulder L Shoulder Alignment: Unremarkable Shoulder Observations R Shoulder Palpation Tenderness: Rotator cuff muscles, Coracoid process, Trapezius, Lateral scapula(pectoralis major muscle) Sensation - Upper Extremity UE Light Touch Sensation: Grossly Intact UE AROM R Shoulder Extension: 35 Degrees R Shoulder Flex: 120 Degrees R Shoulder ABduction: 110 Degrees R Shoulder External Rotation: 35 Degrees L Shoulder Extension: 70 Degrees L Shoulder Flex: 170 Degrees L Shoulder ABduction: 170 Degrees L Shoulder External Rotation: 80 Degrees UE PROM R Shoulder Flex: 150 Degrees R Shoulder External Rotation: 60 Degrees UE Flexibility Flexibility: Pectoral Muscles, Teres Major, Latisimus Dorsi R Pectorals Comments: tight R Teres Major Flexibility Comments: tight R Latissimus Dorsi Flexibility Comments: tight UE Joint Mobility R Shoulder joint mobility: Hypomobile UE and Cervical Strength R UE Strength: 3-/5 shoulder, L UE Strength: 5/5 Education: Education Learning Preferences: Demonstration, Explanation, Performance, Printed Materials Barriers: None Learning/educational needs: Plan of Care, Home exercise program, Posture Education Provided: Yes, see treatment interventions for education provided Education Provided To: Patient Education Mode/Type: Demonstration, Explanation/Discussion, Literature/Printed Materials, Performance Response to Education/Teach Back: Requires Review/Additional Education TREATMENT: PT Treatment Interventions: Therapeutic Exercise, Manual Therapy Evaluation Therapeutic Exercise: 2: Shoulder flexion with wand 15 x supine 3: Shoulder extension with wand 15 x standing 4: Shoulder external rotation with wand 15 x sitting 5: Shoulder scapular plane elevation with wand in standing 15 x 6: Shoulder circles 20 x 7: supine isometric shoulder resistance to anterior glide with manual resistantance 2 minutes x 3 Skilled Intervention: Patient was educated in proper exercise technique and purpose for exercises. Skilled judgment was used in selection of appropriate interventions. Provided written instruction for home exercise program to facilitate proper performance and compliance. Correct performance of therapeutic exercises was facilitated with verbal, visual, and tactile cuing. Manual Therapy: 1: Passive range of motion left shoulder flexion, abduction and rotation 2: Joint mobilization humerus on scapula posterior and inferior grade 2, 3 3: Soft tissue mobilization terres major, pectoralis major, latissimus dorsi muscles Skilled Intervention: Manual skills to improve joint mobility, ROM, and decrease pain. Utilized anatomy knowledge of the therapist, and assessment of patient's response to intervention. Billing * Evaluation Low Complexity: 1 Unit Therapeutic Exercise Treatment Minutes: 15 Manual TherapyTreatment Minutes: 10 Skilled Treatment Time Minutes (timed and untimed codes): 39 Total Session Time (minutes): 50 Session Start Time : 30 Session Stop Time : 1020 Leti Domínguez PT Physical Therapy Evaluation Physical Therapy Evaluation (only) documented in [facility] Miscellaneous Notes* Telephone Encounter - Marium Brewer MA - 08/08/2023 9:38 AM EDT Called this patient twice and her voice mail doesn't state her name so I couldn't leave her a message. * Telephone Encounter - Santiago Amaya - 08/08/2023 8:07 AM EDT Received a call from main appointment center. Patient has questions on today's appointment. Patienthung up on appointment center. Please give a call back. She needs to know if she needs a helper/driver andwhat the appointment is exactly. [phone] documented in this encounterM[facility]03[facility]24 NoteHNO ID: [id number] Author: LETI DOMÍNGUEZ PT Service: ? Author Type: Physical Therapist Type: Progress Notes Filed: 08/29/2023 14:11 Note Text: Episode Visit Count: 1 Therapist That Will Accept/Oversee The Plan Of Care: Leti Domínguez Start of Care Date: 08/08/23 Onset Date: 05/29/23 (greater than 1 year) Plan of Care Certification Date: 08/08/23 Next Certification Due Date: 10/03/23 Patient Identified by Name and Date of : Yes [facility] PHYSICAL THERAPY EVALUATION PLAN OF CARE: Assessment: Sussy Crane presents with chief complaint of right shoulder pain that interferes with physical activities, recreational activities, lifting, heavy exertion, sleeping, reaching behind back, reaching overhead, use hand with arm at shoulder level, pulling, pushing, carrying . She presents with impairments in ADL's, joint mobility, patient reported outcome measures, posture, range of motion, strength, and symptom management. PROMIS? (Patient-Reported Outcomes Measurement Information System) scores were reviewed and identified as a rehabilitation concern. Prognosis for therapy is Fair due to: chronic nature of impairments . She will benefit from skilled therapy services to meet the goals established for this plan of care as noted below. Based on the patient's history, the components of the examination, the patient presentation, and required decision-making as described in this evaluation, this patient's evaluation falls into the low category of complexity as described by AMA CPT codes. Patient can benefit from skilled care to address patient's impairments and improve their function. Goals for Episode of Care: created on 08/08/23 through 10/03/23 Patient reported outcome of physical function and self-efficacy will increase T-score by a minimum 5 points. Cobb in home exercise program. Patient will decrease pain rating by 2 points to meet minimal clinical important difference for numeric pain rating scale. Patient will increase active ROM of right shoulder to 150 degrees elevation, 65 degrees external rotation and 60 degrees extension to allow pt to to improve postural alignment and to improve performance of ADLs. Patient will demonstrate increase in right shoulder strength to at least 4+/5 during manual muscle testing in order to improve function for basic self-care tasks, home management tasks, leisure / recreation skills, and light functional tasks. Improve postural awareness. Patient will be able to correct postural deviations independently in order to allow for normal mechanics, to decrease current pain , and prevent future recurrence. Patient Goals: decrease right arm pain, more use of shoulder Planned Interventions, Frequency, and Duration: Current Frequency: 1x/week (start in 3 weeks) Duration: 8 weeks Total Number of Visits Planned: 5 Planned Treatment Interventions: Therapeutic exercise (56714), Neuromuscular re-education (61437), Manual therapy (05098), Therapeutic activities (12594), Self-[place] [facility] management (04959), Gait Training (58929), Patient/Family/Caregiver Education, Body Mechanics Training, Functional training PLAN FOR NEXT VISIT: assess carry over of home program Patient demonstrates good understanding of plan of care and treatment. The above goals and plan of care were discussed and agreed upon by patient/family. SUBJECTIVE: Patient presents to therapy today with complints of right shoulder pain. Patient reports 11 years ago a fall off a horse that she landed on her right shoulder. She has had 2 labrarum repairs since the fall. Patient Goals: decrease right arm pain, more use of shoulder Patient seen today for a shared medical appointment with Dr. Sena, [place] Procedure performed today for right sided shoulder pain.. Functional Limitations: physical activities, recreational activities, lifting, heavy exertion, sleeping,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 her back around July and this is caused a lot of traumatic feelings. She would like referral tocounseling. Her mom told her get over it she was able to have him placed in [facility] and they are going through the court over custody. She would like to build to move with her grandma to [place] or [place] and does believe that this would help her overall medical condition including her shoulder for which she has had multiple surgeries as well as her skin. REVIEW OF SYSTEMS: 12 systems negative except for those mentioned in the HPI. PHYSICAL EXAMINATION: Constitutional: The patient is alert, in no acute distress. Eyes: Extraocular movements are intact. ENT: external ear canals patent Neck: no JVD. Heart: no JVD Lungs: Normal respiration without stridor or nasal flaring Psychiatric: Good judgment and insight. Normal affect and mood. Skin: Very substantial bulky beefy raised plaque from the dorsum of the hand to the mid forearm on the right Assessment: per EMR Plan: I did give referral for the patient for counseling both locally as well as also on the line if thatwould be easier for the patient. It is my professional medical opinion with the multiple shoulder issues and surgeries that she has had as well as also skin conditions that the patient would benefit from a area that low barometric pressure climate. A letter stating such was also given. Both oral and topical steroids were given and also condolences over the patient's physical and mental wellbeing due to the altercations that she has had with her . Patient greatly appreciates this and to give other helpful resources This dictation was created using nprogresson dictation and may contain errors documented in this encounterFort [facility] Work Phone: 1([phone]) 619-310911-16-2023 Miscellaneous Notes* Telephone Encounter - Cathy Mroan MD - 04/13/2023 9:27 AM EST Reviewed the pictures of legs uploaded in [employer], it appears that whole leg is swollen. To me it appears like fluid retention. Pain getting worse towards end of day sounds more mechanical to be rather than inflammatory. Advised to see in person to examine joints for any joint swelling over knees and ankles. I reviewed MRI hips done in 07/2022, that did not show any signs of inflammatory arthritis or psoriatic arthritis. Recommend dermatology evaluation for possible skin biopsy to evaluate for psoriasis. Total time spent was 7 minutes. [facility] History of Present illness NarrativePatient is a 27-year-old female past medical history of abnormal uterine bleeding, acid reflux, anxiety and depression, bipolar 1, eczema, non-smoker, Raynaud's phenomenon, vitamin D deficiency presents to the office today follow-up from recent ER visit for hives, rash. Patient was seen she states the emergency hospital on August 26 for hives. She states that he developed last on August 25, 2022. Started on her abdomen and then spread to her legs arms neck feet and hands itching and welts on the body. She does not recall any new medications, cosmetics, soaps, detergents. She did not take any medications for the rash. She also felt like her face feet and hands felt swollen. I did review lab work from her recent emergency room visit from 08/26/2022 patient had CMP was normal with exception of mildly low anion gap of 8. CBC showed microcytic anemia with hemoglobin of 9.7, white bloodcell count 7.9 and platelet count 452. Of note she did have recent surgery with hysterectomy at [facility] in [facility] on August 12 for abnormal uterine bleeding. She states surgery went well she developed some cough, diarrhea pelvic pain after her surgery and went to the ER on 08/20/[address] of the abdomen pelvis with contrast did not show any acute abdominal process. She states that gave her Toradol pain medication discharged her from the ER she also had a chest x-ray at that time that was negative as well as testing for influenza, COVID-19 and strep they all which were negative. This was reviewed in her medical record as well she also had normal lipase, lactic acid troponin CBCat that time showed hemoglobin 10.5 platelet count 434 white blood cell count 7.6. She was given IV medications she states in the ER at [facility] for her rash on 08/26/2022. She states that her rash has resolved and she only took 1 dose of prednisone on Monday. She did not have any blisters or oral lesions. Overall she is improving still has a lingering cough but no fever chills night sweats. She has an upcoming appointment on with her [employer] for recheck. States she is not having any nausea vomiting or abdominal pain now but does have a decreased appetite overall.[facility] Work Phone: 1(787) 867-332803-25-2023 Hospital Discharge instructions* Discharge Instructions* Chaudhari MD - 08/20/2022 8:05 PM EDT Return for worsening symptoms. Follow-up with your doctor. Thank you. * Attachments The following attachments cannot be sent through Care Everywhere. * Abdominal Pain (Singaporean) * Hysterectomy: Abdominal: Post-op (Singaporean) documented [facility] Work Phone: 1([phone]) 481-740103-17-2023 History of Present illness Narrative* Sima Ac RN - 08/12/2022 4:48 PM EDT Patient discharged to home via wheelchair in stable condition. Voided 200 mL clear yellow. Care of patient transferred to patient's mother. * Sima Ac RN - 08/12/2022 4:25 PM EDT Discharge instructions reviewed per EMELIA Guadalupe with patient. They deny any further questions at this time. Discharge packet given to patient for take home. * Sima Ac RN - 08/12/2022 8:45 AM EDT Patient refused second IV d/t being such a difficult stick and anxiety. Will notify DENTAL SCHEDULER. * Ana Rodriguez RN - 08/11/2022 3:31 PM EDT Images from the original note were not included. Sussy Crane Female, 27 y.o., 1995 (M) Merrick Arellano, DO Ana Rodriguez RN Cc: Allie Bean RN; Barrington Prince RN Reviewed and may proceed Previous Messages ----- Message ----- From: Ana Rodriguez RN Sent: 08/11/2022 10:37 AM EDT To: Barrington Prince RN, Allie Bean, EMELIA, * Subject: cbc Please review abnormal platelet count. The cbc [facility] drawn at [facility], the result is in media and bookmarked for your review. Please advise if you require anything further. Thanks. documented in this [facility]03-17-2023 Nurse Note* Anayeli Corbin RN - 08/12/2022 3:15 PM EDT Ambulated to BR w/slow steady gait,voided approx 20ml clear yellow urine,no drng noted on cele pad,returned to recliner,taking soda and crackers w/o nausea. * Chandra Ayoub RN - 08/12/2022 1:45 PM EDT Discharged from PACU in stable condition. Transported via cart to [facility] . Cart placed in lowest position. Call light within reach. Report given to Sima KAPOOR at bedside. * Sussy Florez RN - 08/12/2022 1:10 PM EDT Patient taken to PACU via cart with EMELIA Ospina and KAPIL Page, Report given to EMELIA Zafar. * Anai Cabrera RN - 08/12/2022 12:22 PM EDT OR 1 Temp- 67.2 degrees F OR 1 Hum- 44% documented in this [facility]Sum[facility] Surgical operation note* Anayeli Corbin RN - 08/12/2022 3:15 PM EDT Ambulated to BR w/slow steady gait,voided approx 20ml clear yellow urine,no drng noted on cele pad,returned to recliner,taking soda and crackers w/o nausea. [facility]03-17-[facility]23 Nurse Surgical operation note* Chandra Ayoub RN - 08/12/2022 1:45 PM EDT Discharged from PACU in stable condition. Transported via cart to [facility] . Cart placed in lowest position. Call light within reach. Report given to Sima KAPOOR at bedside. [facility]03-17-[facility]23 Hospital Discharge instructions* Discharge Instructions* Sima Ac RN - 08/12/2022 1:43 PM EDT Follow up at [facility] in two weeks. Call the office [phone] for severe pain that is not relieved with oral pain meds prescribed, Temperature over 101, excessive bleeding or pus draining from your incision. If you are unable to contact the office then go to the nearest emergency room for evaluation. Take tylenol and motrin as needed for pain. Keep cele pad in place for 2-3 day monitor for drainage. 1 saturated pad in an hour or less call office right away. Keep follow up appointment. Pelvic rest for 2 weeks. No baths, swimming, douching or tampons. Anesthesia Precautions & Expectations: After anesthesia, rest for [address], drink alcoholic beverages or make any important decisions during this time. General anesthesia may cause a sore throat, jaw discomfort or muscle aches. These symptoms can last for one or two days. documented in this encounterSum[facility]03-[facility] Note* Op Note - Pascual Zuniga MD - 08/12/2022 1:15 PM EDT DATE: 08/12/2022 Patient: Sussy Crane Pre-Op Dx: Adenomyosis of uterus [N80.03] Pelvic pain in female [R10.2] Dysmenorrhea [N94.6] Menometrorrhagia [N92.1] Dyspareunia, female [N94.10] Post-Op Dx: Adenomyosis of uterus [N80.03] Pelvic pain in female [R10.2] Dysmenorrhea [N94.6] Menometrorrhagia [N92.1] Dyspareunia, female [N94.10] Procedure: Procedure(s) (LRB): ROBOTIC-ASSISTED LAPAROSCOPIC HYSTERECTOMY *1ST ASST-NASREEN* (N/A) Surgeon: Surgeon(s) and Role: * Pascual Zuniga MD - Primary Anesthesia: General COMPLICATIONS: None. BLOOD LOSS: Minimal FINDINGS: The endometrial cavity sounded to approximately 8 cm. The pelvis was free of endometriosis and adhesions. The tubes appeared to be surgically absent except for remnants of fimbria bilaterally. The ovaries were normal in appearance. The pelvis was free of endometriosis or adhesions. PROCEDURE : Patient was introduced into the operating room. Timeout was performed. She was intubated without difficulty and placed into dorsolithotomy position and under went sterile prep and drape. After Sterile prep and drape the weighted speculum was inserted into the vagina and the cervix was grasped with a single tooth tenaculum. Kluzfi-[id number] suture of #1 Vicryl was placed into the anterior lip of the cervix. The endometrial cavity was sounded and sounded to approximately 8 cm. Cervical os was thendilated sufficient to allow placement of the LYNNETTE uterine manipulator. The manipulator was placed in the cup of the manipulator was brought over the cervix into the anterior fornices. At this point the balloon was inflated, the chairez catheter was placed and the surgeon changed gloves and went up tothe patient's left lateral side. Varess needle was then inserted through umbilicus, and a pneumoperitoneum was created by insufflation of 3 L of carbon dioxide gas. After the pneumoperitoneum was created the Varess needle was removed and a 8 mm transverse supraumbilical incision was made and the 8 mm trocar was inserted through this incision. The laparoscope was inserted and the pelvis was inspected. Findings as noted above. The additional trocars were placed after making lateral incisions. An 8 mm trocar was placed approximately 10 cm lateral to midline trocar. An additional trocar was placed on the patient's right side midway between the lateral trocar and the midline trocar and this 8 mmtrocar was used as the assistance port. Lateral docking of the robot was undertaken and the arms were attached to the trocars. The vessel sealer device was placed on the patient's left side and the monopolar scissors were placed on the patient's right side. This was done under direct laparoscopic visualization. At this point the surgeon scrubbed out and went to the operating console. The right tube was then grasped with the vessel sealer device and elevated away from the ovary and the mesosalpinx was then incised using the monopolar scissors. The right tube was grasped with the vessel sealer device and the knee cell salpinx was coagulated with the monopolar scissors all the way up to the utero- ovarian ligament. The utero-ovarian ligament was then coagulated with the long bipolar forceps and incised with the monopolar scissors. The rightround ligament was then coagulated in its midportion with a long bipolar forceps and incised with the monopolar scissors. The anterior leaf on the broad ligament was then incised with the monopolar scissors extending it down to the dome of the bladder. The leaves of the broad ligament were opened and the area of the areola tissue was dissected away thereby allowing skeletonization and visualization of the ascending branch of the right uterine artery. The bladder was dissected away from the lower uterine segment and cervix using sharp and blunt dissection with the monopolar scissors. The ascending branch of the right uterine artery was then coagulated with the monopolar scissors at the vaginal cervical junction. The right uterine artery was then incised with the monopolar scissors. At thispoint, the identical procedure was repeated on the patient's left side. After skeletonizing the ascending branch of the left uterine artery and coagulating and transecting the ascending branch of theleft uterine artery the remainder of the bladder flap was taken down. The vaginal cervical junctionwas then incised with the monopolar scissors starting at 12:00, and working around in a circumferential manner back to 12:00. The cuff of the Lynnette to manipulater was easily visualized during the process. The specimen was then pulled down through the vagina. The pelvis was irrigated and hemostasis was verified. The apex of the vagina was then closed with a running suture of #0 V-lock running suture. At this point the pelvis was irrigated for a second time. The pedicles were inspected for hemostasis and when hemostasis was deemed adequate the instruments were removed. The pneumoperitoneum was then reversed and the trocar sheaths were removed. The surgeon then scrubbed in and the incisions were closed with 4-0 Vicryl. Sterile dressing was applied. The patients's anesthesia was then reversed and she was extubated and transferred to the recovery room in stable condition. SPECIMENS: Uterus and fimbriated end of tubes Pascual Zuniga MD [facility]03-17-2023 Note* Brief Op Note - Pascual Zuniga MD - 08/12/2022 1:15 PM EDT See immediate post op note. [facility]03-17-2023 Miscellaneous Notes* Op Note - Pascual Zuniga MD - 08/12/2022 1:15 PM EDT DATE: 08/12/2022 Patient: Sussy Crane Pre-Op Dx: Adenomyosis of uterus [N80.03] Pelvic pain in female [R10.2] Dysmenorrhea [N94.6] Menometrorrhagia [N92.1] Dyspareunia, female [N94.10] Post-Op Dx: Adenomyosis of uterus [N80.03] Pelvic pain in female [R10.2] Dysmenorrhea [N94.6] Menometrorrhagia [N92.1] Dyspareunia, female [N94.10] Procedure: Procedure(s) (LRB): ROBOTIC-ASSISTED LAPAROSCOPIC HYSTERECTOMY *1ST ASST-NASREEN* (N/A) Surgeon: Surgeon(s) and Role: * Pascual Zuniga MD - Primary Anesthesia: General COMPLICATIONS: None. BLOOD LOSS: Minimal FINDINGS: The endometrial cavity sounded to approximately 8 cm. The pelvis was free of endometriosis and adhesions. The tubes appeared to be surgically absent except for remnants of fimbria bilaterally. The ovaries were normal in appearance. The pelvis was free of endometriosis or adhesions. PROCEDURE : Patient was introduced into the operating room. Timeout was performed. She was intubated without difficulty and placed into dorsolithotomy position and under went sterile prep and drape. After Sterile prep and drape the weighted speculum was inserted into the vagina and the cervix was grasped with a single tooth tenaculum. Edagru-gt-ppwea suture of #1 Vicryl was placed into the anterior lip of the cervix. The endometrial cavity was sounded and sounded to approximately 8 cm. Cervical os was thendilated sufficient to allow placement of the LYNNETTE uterine manipulator. The manipulator was placed in the cup of the manipulator was brought over the cervix into the anterior fornices. At this point the balloon was inflated, the chairez catheter was placed and the surgeon changed gloves and went up tothe patient's left lateral side. Varess needle was then inserted through umbilicus, and a pneumoperitoneum was created by insufflation of 3 L of carbon dioxide gas. After the pneumoperitoneum was created the Varess needle was removed and a 8 mm transverse supraumbilical incision was made and the 8 mm trocar was inserted through this incision. The laparoscope was inserted and the pelvis was inspected. Findings as noted above. The additional trocars were placed after making lateral incisions. An 8 mm trocar was placed approximately 10 cm lateral to midline trocar. An additional trocar was placed on the patient's right side midway between the lateral trocar and the midline trocar and this 8 mmtrocar was used as the assistance port. Lateral docking of the robot was undertaken and the arms were attached to the trocars. The vessel sealer device was placed on the patient's left side and the monopolar scissors were placed on the patient's right side. This was done under direct laparoscopic visualization. At this point the surgeon scrubbed out and went to the operating console. The right tube was then grasped with the vessel sealer device and elevated away from the ovary and the mesosalpinx was then incised using the monopolar scissors. The right tube was grasped with the vessel sealer device and the knee cell salpinx was coagulated with the monopolar scissors all the way up to the utero- ovarian ligament. The utero-ovarian ligament was then coagulated with the long bipolar forceps and incised with the monopolar scissors. The rightround ligament was then coagulated in its midportion with a long bipolar forceps and incised with the monopolar scissors. The anterior leaf on the broad ligament was then incised with the monopolar scissors extending it down to the dome of the bladder. The leaves of the broad ligament were opened and the area of the areola tissue was dissected away thereby allowing skeletonization and visualization of the ascending branch of the right uterine artery. The bladder was dissected away from the lower uterine segment and cervix using sharp and blunt dissection with the monopolar scissors. The ascending branch of the right uterine artery was then coagulated with the monopolar scissors at the vaginal cervical junction. The right uterine artery was then incised with the monopolar scissors. At thispoint, the identical procedure was repeated on the patient's left side. After skeletonizing the ascending branch of the left uterine artery and coagulating and transecting the ascending branch of theleft uterine artery the remainder of the bladder flap was taken down. The vaginal cervical junctionwas then incised with the monopolar scissors starting at 12:00, and working around in a circumferential manner back to 12:00. The cuff of the Lynnette to manipulater was easily visualized during the process. The specimen was then pulled down through the vagina. The pelvis was irrigated and hemostasis was verified. The apex of the vagina was then closed with a running suture of #0 V-lock running suture. At this point the pelvis was irrigated for a second time. The pedicles were inspected for hemostasis and when hemostasis was deemed adequate the instruments were removed. The pneumoperitoneum was then reversed and the trocar sheaths were removed. The surgeon then scrubbed in and the incisions were closed with 4-0 Vicryl. Sterile dressing was applied. The patients's anesthesia was then reversed and she was extubated and transferred to the recovery room in stable condition. SPECIMENS: Uterus and fimbriated end of tubes Pascual Zuniga MD * Brief Op Note - Pascual Zuniga MD - 08/12/2022 1:15 PM EDT See immediate post op note. [facility] Surgical operation note* Sussy Florez RN - 08/12/2022 1:10 PM EDT Patient taken to PACU via cart with EMELIA Ospina and KAPIL Page, Report given to EMELIA Zafar. [facility] Surgical operation note* Anai Cabrera RN - 08/12/2022 12:22 PM EDT OR 1 Temp- 67.2 degrees F OR 1 Hum- 44% [facility]02-10-2023 History of Present illness Narrative* Rahul Mccallum DO - 07/08/2022 1:22 PM EST SERVICE DATE: July 08, 2022 PCP: No primary care provider on file. Consult requested by Alecia Moran MD for an opinion regarding chief complaint as stated below. My final impression and recommendations will be communicated back to the requesting physician by way of the shared medical record or letter via US mail. Subjective Patient ID: Sussy is a 27 year old female. Here today with complaints of bilateral hip pain. She states that since she gave to her child just over 2 years ago or as her stated 2 years in 1 week she has had pain in her groins since that time. She is feels clicking and popping. She has not really had any locking symptoms. This affects her everyday activities secondary to pain. She hasbeen offered injections in her hips and she does not want to do that at this time. She does take naproxen sodium for her pain. Chief Complaint: Patient presents with: Right Hip - New PAIN EVALUATION 07/08/2022 1323 Pain Level: 7 Pain Location: Hip-Right Description: Stabbing;Burning;Cramping Duration Amount of Time: 2 Duration Units: Years Frequency: Intermittent HPI TREATMENTS PRIOR TO INITIAL CONSULT: Oral NSAIDS Review of Systems ACTIVE PROBLEM LIST Labral Tear of Shoulder No past medical history on file. No past surgical history on file. No family history on file. Social History Tobacco Use Smoking status: Never Smokeless tobacco: Never Vaping Use Vaping Use: Never used ALLERGIES Allergen Reactions Greenwald Rash Other reaction(s): (Rash) or (C/O a rash) Morphine Itching Nickel Rash Other reaction(s): (Rash) or (C/O a rash) MEDICATIONS: cholecalciferol (VITAMIN D) 1,000 unit tab tablet Take 1 tablet by mouth once daily. nitroglycerin (NITRO-BID) 2 % oint ointment Apply 1 g as directed twice daily. Naproxen SR (EC-NAPROSYN) 500 mg EC tablet Take 500 mg by mouth twice daily as needed (pain). tiZANidine HCl 2 mg capsule Take 2 mg by mouth three times daily as needed. triamcinolone acetonide (KENALOG) 0.5 % cream Apply 1 application to affected area three times daily as needed (rash). Allergies, medications, past surgical history, family history and past medical history were reviewed per this encounter. Objective Ortho Exam alert pleasant female oriented x3. She does have pain in her groin bilaterally with Cassie Nikko. She also has increased discomfort with internal rotation at 90 degrees. Also with AB and adduction of 40 to 50 degrees bilaterally gives her pain in her groin bilaterally. There is no pain on palpation about her proximal femurs bilaterally. Neurovascular she is intact into her lower extremities with full range of motion of her knees and ankles. X-rays of her pelvis and hips bilaterally are negative for osseous abnormalities. Assessment/Plan ASSESSMENT Diagnosis (M25.551) Pain in right hip (primary encounter diagnosis) Plan: XR HIP GENERAL 3V PELV/AP/LAT RIGHT, CONSULT PANEL TO ORTHOPAEDICS (M25.559) Pain in hip Plan: MRI HIP WO IVCON RT, MRI HIP WO IVCON LT Office Visit on 07/08/22 XR HIP GENERAL 3V PELV/AP/LAT RIGHT MRI HIP WO IVCON RT MRI HIP WO IVCON LT CONSULT PANEL TO ORTHOPAEDICS PLAN I recommend she proceed with MRIs of her hips. She will contact me through [employer] after these are complete for further recommendations. FOLLOW-UP: No follow-ups on file. I reviewed the information obtained and documented by the me. I examined the patient and evaluated all available films and pertinent documents. We discussed the case and I agree with the plans as outlined in this note. SIGNATURE: Rahul Mccallum DO PATIENT NAME: Sussy Crane DATE: July 08, 2022 TIME: 1:37 PM [facility] Miscellaneous Notes* Addendum Note - Amarilys Estes MA - 06/28/2022 12:10 PM ESTAddended by: AMARILYS ESTES on: 06/28/2022 12:10 PM Modules accepted: Orders * Telephone Encounter - Amarilys Estes MA - 06/28/2022 10:48 AM EST Faxed script to [facility]. Confirmation received. Amarilys Estes MA * Telephone Encounter - Amarilys Estes MA - 06/28/2022 9:40 AM EST Patient in office today. Script for Nitroglycerin Ointment printed out. Called pt to come pick backup, left a v/m for pt to stop in to grape picker or I can fax to pharmacy. Amarilys Estes MA documented in [facility]01[facility] History of Present illness Narrative* Cathy Moran MD - 06/28/2022 9:00 AM EST Images from the original note were not included. Rhe[facility]ology Outpatient [facility] Date of Service: 06/28/2022 Patient: Sussy Crane Medical Record: [id number] Primary Care Physician: No primary care provider on file. Referring Provider: [place] [id number] [address] [facility] [id number] Last Rheumatology visit: 03/09/2022 (with Cathy Moran) Chief complaint: Recheck (Hips, both, ongoing, pain scale 6.) History of Present Illness Sussy Crane is a 27 year old White female with medical history of preeclampisia, cholesystectomy, diverticulosis, presents on 06/28/2022 for an in-person visit for evaluation of Recheck (Hips, both, ongoing, pain scale 6.). Sussy is both RF - 9 (03/09/2022) and CCP - 13.5 (03/09/2022) negative. Her most recent DUNG was negative (03/09/2022). HISTORY OF PRESENT ILLNESS Seen as new patient in 02/2022, as per HPI Patient reports pain over wrists, knees, ankles for long time. Bilateral hip pain started about 20 months ago since her . Reports right shoulder pain since she had labrum tears in right shoulder yrs ago She also reports swelling over the whole hands, sometimes swelling affects only some fingers and toes associated with redness Pain is wrose with activities MS- few min Also reports Raynayds with fingers turning white on exposure to cold but never had digital ulcers She also feels tired and does not feel fresh in the morning Also has back pain on and off worse with activities Achillis tendinitis since 7 th grade Patient also reports skin rash over abdomen, was seen by utility operator yarn, had skin biopsy, there was question of psoriasis as well as infection, she reports that dermatology is not sure about the skin rash and recommended rheumatology evaluation Denies history of inflammatory eye disease, inflammatory bowel disease, psoriasis, dysentery, had Chlamydia in 2020, treated, denies gonorrhea or other STDs, history of kidney disease/biopsy, nephrolithiasis, peptic ulcer disease, tuberculosis, miscarriages, blood clots, malignancy, pleural/pericardial effusion, CHF, CAD, CVA. Reviewed in care everywhere Sed rate, RF, C3, C4 normal in 01/2021, DUNG negative Skin biopsy 01/2021- FINAL DIAGNOSIS: A. 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 Due to diffuse body pain, fatigue, nonrestorative sleep and lack of synovitis, she was deemed to have chronic pain syndrome. Blood test including DUNG, anti-BIBI, dsDNA, RF/CCP was negative. Sed rate and CRP were normal. Radiograph hands and feet did not show any erosions. Radiograph SI joints showed degenerative changes, no evidence of sacroiliitis. Since her skin biopsy was inconclusive, recommended repeat skin biopsy. INTERVAL HISTORY Today She is here for follow-up She reports pain over bilateral hands mostly with episodes of Raynaud's, also reports whole hand swelling which is associated with Raynaud's, symptoms happen about once a day after exposure to cold. She also reports bilateral hip pain, right shoulder pain. Has catching, locking and popping over hips with activities. She reports that her skin rash is significantly better, only has some bumps over legs, has been using topical steroid cream. Reviewed in scanned documents 10/2021, cervical spine radiograph-unremarkable Patient-Entered Data PAIN EVALUATION 06/28/2022 0821 06/28/2022 0853 Pain Level: 6 6 Pain Location: Pelvis -- Hip pain, both Description: Aching;Pressure;Radiating;Sharp;Shooting;Stabbing;Stabbing/Not Incision -- Duration Units: Days -- Frequency: Continuous -- Intervention/Comfort measure: Relaxation;Distractions;Heat -- PROMIS Assessments PROMIS Assessments 06/28/2022 Pain Interference Percentile 10 % Fatigue Percentile 5 % Physical Function Percentile 18 % RAPID 3 Stack Activities of Daily Living 06/28/2022 8:34 AM Dress self? Without ANY difficulty Get in and out of bed? With MUCH difficulty Walk outdoors? With SOME difficulty Wash and dry body? Without ANY difficulty Get in and out of car? With SOME difficulty RAPID 3 Disease Activity Weighed Score Levels: 0 - 1: Near Remission 1.3 - 2.0: Low Severity 2.3 - 4.0: Moderate Severity 4.3 - 10.0: High Severity RAPID-3 Weighed Score 06/28/2022 RAPID 3 Weighed Score 5.33 (High Severity (HS)) Review of Systems Answers submitted by the patient for this visit: Review of Systems Rheumatology (Submitted on 06/28/2022) Fever : No Recent Unintentional Weight Change: No Eye Pain: No Eye Redness: No Vision Disturbance: Yes Eye Dryness: Yes Nose Bleeds: No Sores in your Mouth: No Trouble Swallowing: No Dry Mouth: No Chest Pain: Yes Leg Swelling: No A Cough: No Shortness of Breath: No Pain with Breathing: Yes Heartburn: Yes Abdominal Pain: Yes Diarrhea: No Black Tarry Stools: No Blood in Urine: No Pain or Burning with Urination: No Joint Pain or Stiffness: Yes Muscle Weakness: Yes Muscle Aches: Yes Morning Stiffness in Joints: Yes A Rash: Yes Skin Color Changes: No Hair Loss: Yes Headaches: Yes Numbness: Yes Memory Loss: Yes Enthesopathic pain: Achillis since 20s Skin rash: Yes, over face, triggerred by heat with flushing, itchy lesions in between the toes mostly on left side Photosensitive rash: no Alopecia: Yes, temporal receding Chest Pain: pressure Diarrhea/constipation : alternating diarrhea and constipation Numbness: Hands sometimes with raynauds Raynaud's: yes Sicca: Dry mouth Past Medical History As in HPI Past Surgical History No past surgical history on file. Allergy ALLERGIES Allergen Reactions Greenwald Rash Other reaction(s): (Rash) or (C/O a rash) Morphine Itching Nickel Rash Other reaction(s): (Rash) or (C/O a rash) Family History The patient denies family history of SLE, RA, Sarcoidosis, Scleroderma, IBD or Psoriasis. Social History Social History Tobacco Use Smoking status: Never Smokeless tobacco: Never Vaping Use Vaping Use: Never used Current Medications Current Outpatient Medications Medication Sig Naproxen SR (EC-NAPROSYN) 500 mg EC tablet Take 500 mg by mouth twice daily as needed (pain). tiZANidine HCl 2 mg capsule Take 2 mg by mouth three times daily as needed. triamcinolone acetonide (KENALOG) 0.5 % cream Apply 1 application to affected area three times daily as needed (rash). cholecalciferol (VITAMIN D) 1,000 unit tab tablet Take 1 tablet by mouth once daily. nitroglycerin (NITRO-BID) 2 % oint ointment Apply 1 g as directed twice daily. No current facility-administered medications for this visit. Labs CBC Latest Ref Rng & Units 03/09/2022 WBC 3.70 - 11.00 k/uL 6.59 HEMOGLOBIN 11.5 - 15.5 g/dL 10.0(L) HEMATOCRIT 36.0 - 46.0 % 35.1(L) PLATELETS 150 - 400 k/uL 495(H) ABS NEUT (ANC) 1.45 - 7.50 k/uL 3.18 ABS LYMPH 1.00 - 4.00 k/uL 2.77 CMP Latest Ref Rng & Units 03/09/2022 SODIUM 136 - 144 mmol/L 140 POTASSIUM 3.7 - 5.1 mmol/L 4.6 CHLORIDE 97 - 105 mmol/L 105 CO2 22 - 30 mmol/L 23 GLUCOSE 74 - 99 mg/dL 63(L) BUN 7 - 21 mg/dL 7 CREATININE 0.58 - 0.96 mg/dL 0.76 CALCIUM, TOTAL 8.5 - 10.2 mg/dL 9.6 AST 13 - 35 U/L 20 ALT 7 - 38 U/L 16 ALKALINE PHOSPHATASE 34 - 123 U/L 75 ESR, WSR Latest Ref Rng & Units 03/09/2022 WSR 0 - 20 mm/hr 30(H) CRP Latest Ref Rng & Units 03/09/2022 CRP <0.9 mg/dL 0.5 RF and CCP Latest Ref Rng & Units 03/09/2022 RHEUMATOID FACTOR <16 IU/mL <10 CCP ANTIBODY IGG QUALITATIVE Negative Negative CCP ANTIBODY, IGG <20 Units <15 Hepatitis Screen Latest Ref Rng & Units 03/09/2022 HEPBCOTOL Negative Negative HEPCABEIA Negative Negative Antibodies Latest Ref Rng & Units 03/09/2022 DUNG Negative Negative DNA ANTIBODY W/CONFIRMATION <30 IU/mL <12 NYLON MENDER ANTIBODY QUAL Negative Negative SSA ANTIBODY QUAL Negative Negative HANNA-1 ANTIBODY, IGG <1.0 AI <0.2 HANNA 1 ANTIBODY QUAL Negative Negative RIBOSOMAL NYLON MENDER AB <1.0 AI <0.2 RIBOSOMAL NYLON MENDER QUAL Negative Negative ANTI-SSA <1.0 AI <0.2 ANTI-SSB <1.0 AI <0.2 ANTI-SM <1.0 AI <0.2 SM ANTIBODY Negative Negative SCL-70 AB QUAL Negative Negative SCL-70 ABS, EIA <1.0 AI <0.2 CENTROMERE AB <1.0 AI <0.2 CENTROMERE AB QUAL Negative Negative CHROMATIN AB <1.0 AI <0.2 CHROMATIN AB QUAL Negative Negative Vitamin D Latest Ref Rng & Units 03/09/2022 VITAMIN D 25 HYDROXY 31.0 - 80.0 ng/mL 20.9(L) Vitamin B12 Latest Ref Rng & Units 03/09/2022 VITAMIN B12 232 - 1,245 pg/mL 329 Imaging Last XR Hand/Finger - Impression Only XR HAND GENERAL 3V PA/LAT/OBL BILATERAL Exam End: 03/09/2022 3:01 PM (Final result) Impression: IMPRESSION: Normal radiographs. Take Down Sorter: LALO Transcribe Date/Time: Mar 09 2022 5:17P ... Last MRI Hand - Impression Only No resulted procedures found. Last XR Chest - Impression Only No resulted procedures found. Last XR Cervical Spine - Impression Only XR CERV GENERAL 2V AP/LAT Exam End: 01/01/2018 1:29 PM (Final result) Impression: IMPRESSION: NORMAL Take Down Sorter: LALO ... Health Maintenance Current Immunizations Never Reviewed No immunizations on file. Physical Exam VITAL SIGNS: BP 125/51 Pulse 62 Wt 176 lb 11.2 oz (80.2kg) SpO2 100% LMP 05/17/2022 GENERAL APPEARANCE: Well groomed. In no distress. SKIN: Annular, faintly erythematous rash over abdominal wall, not typical for psoriasis, no thickening, nodules, calcifications, discoloration. EYES: PERRL, EOMI HENT: Normal external examination of the ears and nose, lips, oropharynx and tongue. No oropharyngeal lesions, exudate, or sores. NECK: No mass or asymmetry, no lymphadenopathy. RESPIRATORY: Normal respiratory effort. Clear to auscultation, no wheeze. CARDIOVASCULAR: regular, normal rate, normal heart sounds, no murmur or rub ABDOMEN: BS normal. No bruits, No tenderness, mass, or hepatosplenomegaly. NEUROLOGIC: Alert and oriented x 3. Sensory exam normal. Motor exam: Normal 5+/5+ muscle strength. Normal bulk and tone. MUSCULOSKELETAL EXAMINATION: Full ROM in all directions, tenderness to palpation, MCPs, PIPs, knees. No swelling or effusion. Nodeformities Whitish, patchy, macerated lesions in between the toes most prominent over left foot, Diagnoses: (M25.50) Pain in joint, multiple sites (primary encounter diagnosis) (M25.551) Pain in right hip (M79.7) Fibromyalgia Impression and Plan 1. Multiple joint pain Patient reports multiple joint pain and swelling, bilateral hand swelling however swelling is only during the episodes of Raynaud's and is related to cold exposure with Raynaud's symptoms, no synovitis on exam, no history of uveitis/iritis XR hands, feet and SI joint-did not show any evidence of inflammatory arthritis Sed rate, CRP, RF/CCP, DUNG, anti-BIBI, dsDNA-normal With diffuse pain, fatigue, nonrestorative sleep she may also have underlying Chronic pain syndromewhich is not an inflammatory rheumatologic disease. It is a disorder that causes widespread muscle pain and tenderness which tends to come and go and move about the body. This common and chronic condition typically is associated with fatigue and sleep disturbances. Since underlying sleep apnea may cause or worsen chronic pain, so sleep apnea testing is recommended. recommended management including regular graded aerobic exercise (start low and go slow), improvingsleep hygiene and quality, continuing with healthy diet, Vit D supplementation, Physical therapy and aquatic pool therapy. There are some reports on benefits from chriopractic and acupuncture procedures, Yoga, arie chi, therapeutic massage, and other body-based therapies to relieve muscle spasms and stiffness. Medication, while important, are not first choice and not indicated for all patients, and not the only treatment. Patient education, exercise, self- management skills and alternative therapies help treat fibromyalgia symptoms. Certain patient require anti-depressants, especially if they have a diagnosis of depression. Patients who have other associated disorders, such as depression, would need to be evaluated and treated by their Primary care physician or Psychiatrist. Medications e.g gabapentin/lyrica or savella may be helpful. Referral to chronic pain specialist 2. Bilateral hip pain With catching, popping and locking Radiograph pelvis with normal-appearing hip joint Will refer to hip orthopedics for further evaluation 3. Skin rash Biopsy report reviewed Psoriasis vs candidiasis and dermatophytosis Dermatology is not sure about diagnosis and deferred to rheum Would recommend repeat skin biopsy if skin rash recurs 4. Raynauds No evidence of underlying connective tissue disease Her blood pressure is on lower side, will add nitroglycerin paste keep skin warm and supple; need to avoid tobacco/cocaine use; need to wear gloves/socks, keep warm,use lotions/emollients; need to avoid trauma/paper cuts and secondary infections. If this worsens, may consider a low-dose calcium channel pau, carefully monitoring her blood pressure 5.tinea pedis Has interdigital tinea most prominent over left foot Recommended topical antifungal If it does not get better follow with PCP/dermatology for systemic treatment 6. Healthcare maintenance/Malignancy screening Defer to PCP Orders this visit: Office Visit on 06/28/22 CONSULT PANEL TO ORTHOPAEDICS [facility]) nitroglycerin topical ointment 2% (NITRO-BID) *Discontinued* cholecalciferol (VITAMIN D) 1,000 unit tab tablet nitroglycerin (NITRO-BID) 2 % oint ointment *Discontinued* nitroglycerin (NITRO-BID) 2 % oint ointment Return if symptoms worsen or fail to improve. I spent a total of 25 minutes on the date of the service which included preparing to see the patient, [id number] patient care, completing clinical documentation, obtaining and/or reviewing separately obtained history, performing a medically appropriate examination, counseling and educating the pat ient/family/caregiver, and ordering medications, tests, or procedures. Cathy Moran MD, [facility] Rheumatology documented [facility] History of Present illness Narrative* Patient is here after being discharged from [facility]. Patient has been having off and on bleeding now for the last month or so. She did see her URBAN PLANNING TEACHER and was given a patch. They said that if this does not help out considering uterine ablation. She did follow-up with an orthopedic surgeon in [place] she had her second surgery on her right shoulder and is already back to crunching again and she now feels like the left 1 is doing the same. She is also still having pain and some clicking with the right hip which is very concerning. She is also having some discomfort in the lower abdomen and then also seems to come around in the right lower back. * REVIEW OF SYSTEMS: 12 systems negative except for those mentioned in the HPI. * PHYSICAL EXAMINATION: * Constitutional: The patient is alert, in no acute * distress. * Eyes: Extraocular movements are intact. * ENT: external ear canals patent * Neck: no JVD. * Heart: no JVD * Lungs: Normal respiration without stridor or nasal flaring * Psychiatric: Good judgment and insight. Normal affect and mood. * Skin: no rashes or lesions * MSK/neurologic: Cranial nerves II through grossly intact. Patient does have some paraspinal muscle spasm and tenderness on L3-L5 worse on the right than the left reproduces the patient's discomfort * Assessment: * per EMR * Plan: * I reviewed the patient's CT scan as well as blood work where she is anemic. She has started to bleed again and would I discussed with the URBAN PLANNING TEACHER possible progesterone clearing out her uterus. She didhave polypectomy and needs to follow-up with this. Also needs to make sure she is hydrated with an acute anemia drop to 9.1. Also am concerned the patient may have an underlying connective tissue disorder as she has now had 2 shoulder surgeries as well as also having adhesive capsulitis and the other shoulder. This is also combined with multiple joint pains laxities and dislocations. Is being referred to rheumatology. We will use a steroid and muscle relaxer as well as strengthening and heat patch on the back. I do believe that the back discomfort is viscerosomatic to the uterus which does correlate osteopathically with the nerve roots * This dictation was created using Hairbobo dictation and may contain errors [facility] Work Phone: [phone]) 561-888410-27-2022 History of Present illness Narrative* 26-year-old white female referred by Dr. Surya Nguyen for HEMATURIA, PELVIC PAIN, RECURRENT UTI .Patient has a history of ENDOMETRIOSIS. Also ACHILLES TENDINITIS. CAT scan of the abdomen and pelvis is negative. Urinalysis is negative. Urine culture shows no growth. GROSS HEMATURIA 1 month ago. 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 No family history of breast or prostate cancer. The patient does not smoke cigarettes. * Achilles tendinitis NO CIPRO * September 25, 2021, patient arrives alone. She states that she has had uterine polyps removed in the past. She states that she had gross hematuria and is quite concerned and anxious about that development. Her urine studies were negative. We reviewed the etiology of hematuria. This included stone disease, trauma, urinary tract infections, and bladder lesions. She wishes to pursue a cystoscopy. [facility] Work Phone: 1(675) 908-992710-12-2022 History of Present illness Narrative* Amelia Herring, RT(R) - 03/09/2022 2:59 PM EDT Radiology Service Progress Note PATIENT NAME: Sussy Crane DATE OF SERVICE: March 09, 2022 TIME: 2:59 PM PATIENT IDENTITY VERIFICATION COMPLETED USING TWO (2) IDENTIFIERS: Name and Date of confirmedby patient verbally. FALL SCREENING: Has the patient had 2 falls in the last year or 1 fall with injury or currently using an Ambulatory Assistive Device (Walker, Cane, Wheelchair, Crutches, etc.)? No PATIENT GENDER DATA: Female. status: : No status: N/A PATIENT RELEVANT IMPLANT DATA REVIEWED: Not Applicable RADIOLOGY DEPARTMENT: General X-ray: Exam(s) Completed: Pelvis X-Ray: sacroiliac joints Lower Extremity X-Ray(s): Foot, Bilateral and Wt. Bearing Upper Extremity X-Ray(s): Hand, bilateral PERIPHERAL IV DATA: Not applicable SIGNED BY: RT Kami(R) March 09, 2022 2:59 PM documented in [facility]10-[facility] History of Present illness Narrative* Cathy Moran MD - 03/09/2022 1:30 PM EDT Images from the original note were not included. Rheumatology Outpatient Clinic Date of Service: 03/09/2022 Patient: Sussy Craen Medical Record: [id number] Primary Care Physician: No primary care provider on file. Referring Provider: [place] [id number] [facility] [address] Last Rheumatology visit: 03/09/2022 (with Cathy Moran) Chief complaint: Consult (Bilateral hip pain, since gave , 20 months ago. Patient states she can feel the joints popping in and out. She also notes that ortho dr told her she has bone spurs on hips.) Consultation requested by Dr. Bryce Wise for an opinion regarding hip pain. My final recommendations will be communicated back to the requesting physician by way of shared Medical record or letter to requesting physician via US mail. History of Present Illness Sussy Crane is a 27 year old White female with medical history of preeclampisia, cholesystectomy, diverticulosis, presents on 03/09/2022 for an in-person visit for evaluation of Consult (Bilateral hip pain, since gave , 20 months ago. Patient states she can feel the joints popping in and out. She also notes that ortho dr told her she has bone spurs on hips.). HISTORY OF PRESENT ILLNESS Patient reports pain over wrists, knees, ankles for long time. Bilateral hip pain started about 20 months ago since her . Reports right shoulder pain since she had labrum tears in right shoulder yrs ago She also reports swelling over the whole hands, sometimes swelling affects only some fingers and toes associated with redness Pain is wrose with activities MS- few min Also reports Raynayds with fingers turning white on exposure to cold but never had digital ulcers She also feels tired and does not feel fresh in the morning Also has back pain on and off worse with activities Achillis tendinitis since 7 th grade Patient also reports skin rash over abdomen, was seen by utility operator yarn, had skin biopsy, there was question of psoriasis as well as infection, she reports that dermatology is not sure about the skin rash and recommended rheumatology evaluation Denies history of inflammatory eye disease, inflammatory bowel disease, psoriasis, dysentery, had Chlamydia in 2020, treated, denies gonorrhea or other STDs, history of kidney disease/biopsy, nephrolithiasis, peptic ulcer disease, tuberculosis, miscarriages, blood clots, malignancy, pleural/pericardial effusion, CHF, CAD, CVA. Reviewed in care everywhere Sed rate, RF, C3, C4 normal in 01/2021, DUNG negative Skin biopsy 01/2021- FINAL DIAGNOSIS: A. 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 Duration Units: Months Frequency: Continuous PROMIS Assessments No flowsheet data found. RAPID 3 Stack Activities of Daily Living No Data Dress self? - Get in and out of bed? - Walk outdoors? - Wash and dry body? - Get in and out of car? - RAPID 3 Disease Activity Weighed Score Levels: 0 - 1: Near Remission 1.3 - 2.0: Low Severity 2.3 - 4.0: Moderate Severity 4.3 - 10.0: High Severity No flowsheet data found. Review of Systems REVIEW OF SYSTEMS: Joint pain: As above Joint swelling: As above Joint stiffness: As above Back/neck pain: As above Enthesopathic pain: Achillis since 20s Fever: Denies Change in weight: Denies Lymphadenopathy: Denies Mucosal ulcers: Denies Skin rash: Yes, triggerred by heat Photosensitive rash: Rash is triggered by warm temp. Not just sun exposure Alopecia: yes Chest Pain: pressure Dyspnea: Denies Cough : Denies Difficulty swallowing: Denies Nausea/vomiting: yes Heartburn: Denies Abdominal Pain: Denies Diarrhea/constipation : alternating diarrhea and constipation Blood in stool : Sometimes from anal fissures Dysuria/hematuria: Denies Muscle pain: Denies Muscle weakness: Denies Numbness: Hands sometimes Headache: Denies change in vision: Denies Confusion: Denies Seizures: Denies Raynaud's: yes Sicca: Dry mouth Snoring: Denies Currently menstruating: spotting currently Past Medical History As in HPI Past Surgical History No past surgical history on file. Allergy ALLERGIES Allergen Reactions Greenwald Rash Other reaction(s): (Rash) or (C/O a rash) Morphine Itching Nickel Rash Other reaction(s): (Rash) or (C/O a rash) Family History The patient denies family history of SLE, RA, Sarcoidosis, Scleroderma, IBD or Psoriasis. Social History Social History Tobacco Use Smoking status: Never Smokeless tobacco: Never Vaping Use Vaping Use: Never used Current Medications Current Outpatient Medications Medication Sig triamcinolone acetonide (KENALOG) 0.5 % cream Apply 1 application to affected area three times daily as needed (rash). Naproxen SR (EC-NAPROSYN) 500 mg EC tablet Take 500 mg by mouth twice daily as needed (pain). tiZANidine HCl 2 mg capsule Take 2 mg by mouth three times daily as needed. No current facility-administered medications for this visit. Labs CBC Latest Ref Rng & Units 03/09/2022 WBC 3.70 - 11.00 k/uL 6.59 HEMOGLOBIN 11.5 - 15.5 g/dL 10.0(L) HEMATOCRIT 36.0 - 46.0 % 35.1(L) PLATELETS 150 - 400 k/uL 495(H) ABS NEUT (ANC) 1.45 - 7.50 k/uL 3.18 ABS LYMPH 1.00 - 4.00 k/uL 2.77 ESR, WSR Latest Ref Rng & Units 03/09/2022 WSR 0 - 20 mm/hr 30(H) Hepatitis Screen Latest Ref Rng & Units 03/09/2022 HEPCABEIA Negative Negative Antibodies Latest Ref Rng & Units 03/09/2022 DNA ANTIBODY W/CONFIRMATION <30 IU/mL <12 NYLON MENDER ANTIBODY QUAL Negative Negative SSA ANTIBODY QUAL Negative Negative HANNA-1 ANTIBODY, IGG <1.0 AI <0.2 HANNA 1 ANTIBODY QUAL Negative Negative RIBOSOMAL NYLON MENDER AB <1.0 AI <0.2 RIBOSOMAL NYLON MENDER QUAL Negative Negative ANTI-SSA <1.0 AI <0.2 ANTI-SSB <1.0 AI <0.2 ANTI-SM <1.0 AI <0.2 SM ANTIBODY Negative Negative SCL-70 AB QUAL Negative Negative SCL-70 ABS, EIA <1.0 AI <0.2 CENTROMERE AB <1.0 AI <0.2 CENTROMERE AB QUAL Negative Negative CHROMATIN AB <1.0 AI <0.2 CHROMATIN AB QUAL Negative Negative Vitamin B12 Latest Ref Rng & Units 03/09/2022 VITAMIN B12 232 - 1,245 pg/mL 329 Imaging Last XR Hand/Finger - Impression Only XR HAND GENERAL 3V PA/LAT/OBL BILATERAL Exam End: 03/09/2022 3:01 PM (Final result) Impression: IMPRESSION: Normal radiographs. Take Down Sorter: LALO Transcribe Date/Time: Mar 09 2022 5:17P ... Last MRI Hand - Impression Only No resulted procedures found. Last XR Chest - Impression Only No resulted procedures found. Last XR Cervical Spine - Impression Only No resulted procedures found. Health Maintenance Current Immunizations Never Reviewed No immunizations on file. Physical Exam VITAL SIGNS: BP 116/60 Pulse 83 Ht 5' 4 (1.63m) Wt 168 lb 9.6 oz (76.5kg) SpO2 97% LMP 03/02/2022 BMI 28.93 kg/(m^2). GENERAL APPEARANCE: Well groomed. In no distress. SKIN: Annular, faintly erythematous rash over abdominal wall, not typical for psoriasis, no thickening, nodules, calcifications, discoloration. EYES: PERRL, EOMI HENT: Normal external examination of the ears and nose, lips, oropharynx and tongue. No oropharyngeal lesions, exudate, or sores. NECK: No mass or asymmetry, no lymphadenopathy. RESPIRATORY: Normal respiratory effort. Clear to auscultation, no wheeze. CARDIOVASCULAR: regular, normal rate, normal heart sounds, no murmur or rub ABDOMEN: BS normal. No bruits, No tenderness, mass, or hepatosplenomegaly. NEUROLOGIC: Alert and oriented x 3. Sensory exam normal. Motor exam: Normal 5+/5+ muscle strength. Normal bulk and tone. MUSCULOSKELETAL EXAMINATION: Full ROM in all directions, tenderness to palpation, MCPs, PIPs, knees. No swelling or effusion. Nodeformities Diagnoses: (M25.50) Pain in joint, multiple sites (primary encounter diagnosis) (R21) Rash and nonspecific skin eruption Impression and Plan 1. Multiple joint pain Healthcare maintenance/Malignancy screening Defer to PCP Orders this visit: Office Visit on 03/09/22 XR FOOT GENERAL 3V AP/LAT/OBL BILATERAL XR HAND GENERAL 3V PA/LAT/OBL BILATERAL XR SACROILIAC JOINTS 2V AP PELVIS/FERGUESON CBC + DIFF COMP METABOLIC PANEL CCP ANTIBODY IGG RHEUMATOID FACTOR BL TSH BLD VITAMIN D 25 HYDROXY SED RATE WESTERGREN C-REACTIVE PROTEIN (CRP) DUNG BY IFA WITH REFLEX ANTI BIBI ID DNA AB DS + CONF BLD HEP C AB IA W/CONF SCRN HEP B SURF AB QUANT HEP B SURF AG CONFRM HEP B CORE AB TOTAL VITAMIN B12 BLOOD Return in about 2 weeks (around 03/23/2022). I spent a total of 60 minutes on the date of the service which included preparing to see the patient, [id number] patient care, completing clinical documentation, obtaining and/or reviewing separately obtained history, performing a medically appropriate examination, counseling and educating the pat ient/family/caregiver, and ordering medications, tests, or procedures. Cathy Moran MD, [facility] Rheumatology documented in [facility]10-09-[facility] Emergency department Note * Marty García RN - 03/06/2022 9:53 PM EDT Discharge instructions reviewed with patient. No questions voiced. Patient exits unit with all belongings. [facility]10-09-2022 Emergency department Note* Marty García RN - 03/06/2022 9:53 PM EDT Discharge instructions reviewed with patient. No questions voiced. Patient exits unit with all belongings. * Beverly Gamble, FLAQUITA-RADIO ENGINEERING TEACHER - 03/06/2022 8:51 PM EDT Emergency Department Report [facility] EMERGENCY DEPARTMENT Service Date:.03/06/22 PCP: Bryce Wise Chief Complaint: Chief Complaint Patient presents with Vaginal Bleeding Bleeding on and off for the last week and a half, cramping bad recently, this morning woke up to full pad and passed large flesh/clot. Patient thinks she may have had a miscarriage, no home pregnancytest [facility] Sussy Crane is a 27 y.o. female presents to the ED today due to Vaginal bleeding with a large blood clot that she passed earlier today. Patient states that she has been having abnormal vaginal bleeding recently. She does have history of abnormal menses. She has not had her control patch onsince Monday. She states last night she did have heavy vaginal bleeding and did soak a pad and then this morning she had the one large clot. She states that she passed the clot she has had no further vaginal bleeding. She denies any vaginal pain. She denies any pelvic pain. She does have a historyof endometriosis. No known history of ovarian cysts. Patient is not actively trying to get . Review of Systems: Review of Systems As documented in HPI. A thorough 12 point review of systems was evaluated including Constitutional and general appearance, Head, Face, Ears, Eyes, Nose, Throat, Cardiovascular, Pulmonary, GI, , Skin, and Psychiatric andwas found to be negative without symptoms or signs consistent with acute pathology with the exception of that specifically documented in the HPI section of this documentation. Remaining systems reviewed and negative other than the history of present illness. 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 For abdominal spasms Print Disp-20 tablet, R-0 fluocinonide 0.05 % ointment Apply 1 Application topically 2 times daily. As needed for rash; avoidface, groin, underarms Normal Disp-60 g, R-[address] omep[address] Take 10 mg by mouth daily. Historical Med !! ondansetron 4 MG Tab Dispersible tablet Take 1 tablet by mouth every 4 hours as needed for Nausea. Place on tongue Print Disp-10 tablet, R-0 !! ondansetron 4 MG Tab Dispersible tablet Take 1 tablet by mouth every [address] ontongue Print Disp-15 tablet, R-0 phenazopyridine 200 MG Tab tablet Take 1 tablet by mouth 3 times daily as needed for Pain (Urinary pain). Print Disp-6 tablet, R-0 polyethylene glycol (MiraLax) 17 GM/SCOOP Powder powder 1 capful (17g) in 4-8 ounces of beverage POQHS Normal Disp-527 g, R-0 predniSONE 20 MG tablet 3 tabs daily x 3days; 2 tabs daily x 3days; 1 tab daily x 3days then 1/2 tablet daily x 3days Normal Disp-20 tablet, R-0 !! - Potential duplicate medications found. Please discuss with provider. Family History: No family history on file. Social History: Social History Socioeconomic History Marital status: Single Spouse name: Not on file Number of children: Not on file Years of education: Not on file Highest education level: Not on file Occupational History Not on file Tobacco Use Smoking status: Never Smokeless tobacco: Never Vaping Use Vaping Use: Never used Substance and Sexual Activity Alcohol use: Yes Alcohol/week: 1.0 standard drink Types: 1 Shots of liquor per week Comment: once a month Drug use: No Sexual activity: Not on file Other Topics Concern Not on file Social History Narrative Not on file Social Determinants of Health Financial Resource Strain: Not on file Food Insecurity: Not on file Transportation Needs: Not on file Physical Activity: Not on file Stress: Not on file Social Connections: Not on file Intimate Partner Violence: Not on file Housing Stability: Not on file Physical Exam: Physical Exam Vitals and nursing note reviewed. Constitutional: General: She is not in acute distress. Appearance: Normal appearance. She is not ill-appearing, toxic-appearing or diaphoretic. HENT: Head: Normocephalic and atraumatic. Right Ear: External ear normal. Left Ear: External ear normal. Nose: No congestion or rhinorrhea. Mouth/Throat: Mouth: Mucous membranes are moist. Eyes: Pupils: Pupils are equal, round, and reactive to light. Cardiovascular: Rate and Rhythm: Normal rate and regular rhythm. Heart sounds: No murmur heard. Pulmonary: Effort: Pulmonary effort is normal. No respiratory distress. Breath sounds: Normal breath sounds. No stridor. No wheezing or rhonchi. Abdominal: General: There is no distension. Palpations: Abdomen is soft. Tenderness: There is abdominal tenderness (mild low pelvic above bladder). There is no guarding or rebound. Musculoskeletal: General: Normal range of motion. Cervical back: Normal range of motion and neck supple. Skin: General: Skin is warm and dry. Capillary Refill: Capillary refill takes less than 2 seconds. Neurological: General: No focal deficit present. Mental Status: She is alert. Mental status is at baseline. Gait: Gait normal. Psychiatric: Mood and Affect: Mood normal. Vital Signs During ED Visit Patient Vitals for the past 24 hrs: BP Temp Temp src Pulse Resp SpO2 Height 03/06/22 2112 121/60 -- -- 71 16 99 % -- 03/06/22 1930 -- -- -- -- -- -- 1.626 m (5' 4 ) 03/06/221927 125/62 98.4 F (36.9 C) Oral 75 16 96 % -- Orders/Results: Orders Placed This Encounter URINALYSIS, MACRO HCG QUALITATIVE, URINE URINE MICROSCOPIC Results for orders placed or performed during the hospital encounter of 03/06/22 URINALYSIS, MACRO Result Value Ref Range COLOR, URINE YELLOW YELLOW APPEARANCE, URINE CLEAR CLEAR Specific [place], Urine 1.025 1.010 - 1.025 PH URINE 7.0 5.0 - 7.0 PROTEIN, URINE NEGATIVE NEGATIVE mg/dl GLUCOSE, URINE NEGATIVE NEGATIVE mg/dl KETONES, URINE TRACE (A) NEGATIVE mg/dl BILIRUBIN, URINE NEGATIVE NEGATIVE BLOOD, URINE DIPSTICK MODERATE (A) NEGATIVE NITRITES, URINE NEGATIVE NEGATIVE UROBILINOGEN, URINE 0.2 0.2 - 1.0 E.U./dL LEUKOCYTE ESTERASE, URINE TRACE (A) NEGATIVE HCG QUALITATIVE, URINE Result Value Ref Range HCG, QUALITATIVE, URINE NEGATIVE NEGATIVE URINE MICROSCOPIC Result Value Ref Range WBC, URINE 1 TO 5 NEGATIVE /HPF RBC, URINE 1 TO 5 NEGATIVE /HPF Epithelial Cells UA 10 TO 20 /HPF Mucus TRACE (A) NEGATIVE BACTERIA, URINE 1+ (A) NEGATIVE CRYSTALS, URINE NONE NONE CASTS, URINE OCCASIONAL (A) NONE /LPF COMMENT, URINE POSSIBLY CONTAMINATED SPECIMEN, CULTURE MUST BE ORDERED SEPARATELY IF DEEMED NECESSARY. Radiographic Imaging No orders to display Procedures: Procedures Moderate Sedation Procedure: No ED Summary/MDM Patient presents with menorrhagia and Large blood clot. Patient states that her vaginal bleeding has ceased since she passed a large blood clot. She has had no vaginal pain or significant pelvic discomfort. Exam overall is benign with no concerning findings. Urinalysis shows no signs of infection. Urine hCG is negative. Patient is advised to follow-up with URBAN PLANNING TEACHER and primary care. She is instructed to [facility] with [facility] regarding urgent control. She is given discharge instructions, return precautions, and follow-up instructions. Patient voices understanding and agreement and is discharged in stable condition. Clinical Impression: 1. Menorrhagia with regular cycle No follow-ups on file. Discharge Medication List as of 03/06/2022 9:44 PM Discharge Medication List as of 03/06/2022 9:44 PM An After Visit Summary was printed and given to the patient with above information. . . Beverly I Meftah, PAYROLL MASTER-RADIO ENGINEERING TEACHER 03/06/227 documented in this [facility]10-09-2022 Hospital Discharge instructions* Discharge Instructions* JUSTINA Funez - 03/06/2022 9:42 PM EDT You were seen and evaluated today for abnormal vaginal bleeding and a blood clot. Your urine today shows no signs of and the urine shows no evidence of an infection at this time. A culture is being done and if this is positive, you will be notified and antibiotics can be started at that time. It is important that you follow-up with your primary care doctor. Emergency Care may be incomplete without proper follow-up. Symptoms sometimes change or new symptoms might arise after you leave the Emergency Department. It is important that you call your doctor if you become worse in any way, or return to the Emergency Department. Call to arrange a follow up appointment in the next 3 - 4 days, tell the clinic you were seen in the emergency department and we requested a follow up appointment within the next week. Please return to the emergency room with any worsening or more concerning symptoms including chest pain, shortness of breath, fevers, nausea, vomiting, and diarrhea. It is important to manage your pain. You can use Tylenol and ibuprofen for pain relief. If you have difficulty covering the cost of your prescriptions, download the [email or web address] arian on your phone or check their website * Attachments The following attachments cannot be sent through Care Everywhere. * Menorrhagia (Singaporean) documented in this [facility]10-09-2022 Physician Emergency department Note* JUSTINA Funez - 03/06/2022 8:51 PM EDT Emergency Department Report [facility] EMERGENCY DEPARTMENT Service Date:.03/06/22 PCP: Bryce Wise Chief Complaint: Chief Complaint Patient presents with Vaginal Bleeding Bleeding on and off for the last week and a half, cramping bad recently, this morning woke up to full pad and passed large flesh/clot. Patient thinks she may have had a miscarriage, no home pregnancytest HPI Sussy Crane is a 27 y.o. female presents to the ED today due to Vaginal bleeding with a large blood clot that she passed earlier today. Patient states that she has been having abnormal vaginal bleeding recently. She does have history of abnormal menses. She has not had her control patch onsince Monday. She states last night she did have heavy vaginal bleeding and did soak a pad and then this morning she had the one large clot. She states that she passed the clot she has had no further vaginal bleeding. She denies any vaginal pain. She denies any pelvic pain. She does have a historyof endometriosis. No known history of ovarian cysts. Patient is not actively trying to get . Review of Systems: Review of Systems As documented in HPI. A thorough 12 point review of systems was evaluated including Constitutional and general appearance, Head, Face, Ears, Eyes, Nose, Throat, Cardiovascular, Pulmonary, GI, , Skin, and Psychiatric andwas found to be negative without symptoms or signs consistent with acute pathology with the exception of that specifically documented in the HPI section of this documentation. Remaining systems reviewed and negative other than the history of present illness. 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 For abdominal spasms Print Disp-20 tablet, R-0 fluocinonide 0.05 % ointment Apply 1 Application topically 2 times daily. As needed for rash; avoidface, groin, underarms Normal Disp-60 g, R-[address] Take 10 mg by mouth daily. Historical Med !! ondansetron 4 MG Tab Dispersible tablet Take 1 tablet by mouth every 4 hours as needed for Nausea. Place on tongue Print Disp-10 tablet, R-0 !! ondansetron 4 MG Tab Dispersible tablet Take 1 tablet by mouth every [address] ontongue Print Disp-15 tablet, R-0 phenazopyridine 200 MG Tab tablet Take 1 tablet by mouth 3 times daily as needed for Pain (Urinary pain). Print Disp-6 tablet, R-0 polyethylene glycol (MiraLax) 17 GM/SCOOP Powder powder 1 capful (17g) in 4-8 ounces of beverage POQHS Normal Disp-527 g, R-0 predniSONE 20 MG tablet 3 tabs daily x 3days; 2 tabs daily x 3days; 1 tab daily x 3days then 1/2 tablet daily x 3days Normal Disp-20 tablet, R-0 !! - Potential duplicate medications found. Please discuss with provider. Family History: No family history on file. Social History: Social History Socioeconomic History Marital status: Single Spouse name: Not on file Number of children: Not on file Years of education: Not on file Highest education level: Not on file Occupational History Not on file Tobacco Use Smoking status: Never Smokeless tobacco: Never Vaping Use Vaping Use: Never used Substance and Sexual Activity Alcohol use: Yes Alcohol/week: 1.0 standard drink Types: 1 Shots of liquor per week Comment: once a month Drug use: No Sexual activity: Not on file Other Topics Concern Not on file Social History Narrative Not on file Social Determinants of Health Financial Resource Strain: Not on file Food Insecurity: Not on file Transportation Needs: Not on file Physical Activity: Not on file Stress: Not on file Social Connections: Not on file Intimate Partner Violence: Not on file Housing Stability: Not on file Physical Exam: Physical Exam Vitals and nursing note reviewed. Constitutional: General: She is not in acute distress. Appearance: Normal appearance. She is not ill-appearing, toxic-appearing or diaphoretic. HENT: Head: Normocephalic and atraumatic. Right Ear: External ear normal. Left Ear: External ear normal. Nose: No congestion or rhinorrhea. Mouth/Throat: Mouth: Mucous membranes are moist. Eyes: Pupils: Pupils are equal, round, and reactive to light. Cardiovascular: Rate and Rhythm: Normal rate and regular rhythm. Heart sounds: No murmur heard. Pulmonary: Effort: Pulmonary effort is normal. No respiratory distress. Breath sounds: Normal breath sounds. No stridor. No wheezing or rhonchi. Abdominal: General: There is no distension. Palpations: Abdomen is soft. Tenderness: There is abdominal tenderness (mild low pelvic above bladder). There is no guarding or rebound. Musculoskeletal: General: Normal range of motion. Cervical back: Normal range of motion and neck supple. Skin: General: Skin is warm and dry. Capillary Refill: Capillary refill takes less than 2 seconds. Neurological: General: No focal deficit present. Mental Status: She is alert. Mental status is at baseline. Gait: Gait normal. Psychiatric: Mood and Affect: Mood normal. Vital Signs During ED Visit Patient Vitals for the past 24 hrs: BP Temp Temp src Pulse Resp SpO2 Height 03/06/22 2112 121/60 -- -- 71 16 99 % -- 03/06/22 1930 -- -- -- -- -- -- 1.626 m (5' 4 ) 03/06/22 1928 125/62 98.4 F (36.9 C) Oral 75 16 96 % -- Orders/Results: Orders Placed This Encounter URINALYSIS, MACRO HCG QUALITATIVE, URINE URINE MICROSCOPIC Results for orders placed or performed during the hospital encounter of 03/06/22 URINALYSIS, MACRO Result Value Ref Range COLOR, URINE YELLOW YELLOW APPEARANCE, URINE CLEAR CLEAR Specific [place], Urine 1.025 1.010 - 1.025 PH URINE 7.0 5.0 - 7.0 PROTEIN, URINE NEGATIVE NEGATIVE mg/dl GLUCOSE, URINE NEGATIVE NEGATIVE mg/dl KETONES, URINE TRACE (A) NEGATIVE mg/dl BILIRUBIN, URINE NEGATIVE NEGATIVE BLOOD, URINE DIPSTICK MODERATE (A) NEGATIVE NITRITES, URINE NEGATIVE NEGATIVE UROBILINOGEN, URINE 0.2 0.2 - 1.0 E.U./dL LEUKOCYTE ESTERASE, URINE TRACE (A) NEGATIVE HCG QUALITATIVE, URINE Result Value Ref Range HCG, QUALITATIVE, URINE NEGATIVE NEGATIVE URINE MICROSCOPIC Result Value Ref Range WBC, URINE 1 TO 5 NEGATIVE /HPF RBC, URINE 1 TO 5 NEGATIVE /HPF Epithelial Cells UA 10 TO 20 /HPF Mucus TRACE (A) NEGATIVE BACTERIA, URINE 1+ (A) NEGATIVE CRYSTALS, URINE NONE NONE CASTS, URINE OCCASIONAL (A) NONE /LPF COMMENT, URINE POSSIBLY CONTAMINATED SPECIMEN, CULTURE MUST BE ORDERED SEPARATELY IF DEEMED NECESSARY. Radiographic Imaging No orders to display Procedures: Procedures Moderate Sedation Procedure: No ED Summary/MDM Patient presents with menorrhagia and Large blood clot. Patient states that her vaginal bleeding has ceased since she passed a large blood clot. She has had no vaginal pain or significant pelvic discomfort. Exam overall is benign with no concerning findings. Urinalysis shows no signs of infection. Urine hCG is negative. Patient is advised to follow-up with URBAN PLANNING TEACHER and primary care. She is instructed to [facility] with [facility]. She is given discharge instructions, return precautions, and follow-up instructions. Patient voices understanding and agreement and is discharged in stable condition. Clinical Impression: 1. Menorrhagia with regular cycle No follow-ups on file. Discharge Medication List as of 03/06/2022 9:44 PM Discharge Medication List as of 03/06/2022 9:44 PM An After Visit Summary was printed and given to the patient with above information. . . Beverly Gamble APRN-ZAMZAM 03/06/222216 [facility] Work Phone: 1([phone]) 506-494608-22-2022 NoteDischarge Summary PHYSICAL THERAPY Referral/Discharge Information: Date of Discharge: 01/17/22 Date of Last Visit: 10/05/21 Date of Evaluation: 10/05/21 Number of Attended Visits: 1 Referred by: Dr. Radu Fisher Referred for: Hip pain Status at Discharge: d/t the nature of the absent discharge, patient's current status is unknown at this time. Reason for Discharge: Patient failed to schedule any follow up appointments at this office following her initial evaluation. She was later seen for a similar issue at another facility. Therefore, this case is discharged from PT at this time. Signatures Electronically signed by : Tomasz Patino PT; Jan 17 2022 6:26PM EST (Author) [id number] History of Present illness Narrative* Patient is here after being discharged from [facility]. Patient has been having off and on bleeding now for the last month or so. She did see her URBAN PLANNING TEACHER and was given a patch. They said that if this does not help out considering uterine ablation. She did follow-up with an orthopedic surgeon in [place] she had her second surgery on her right shoulder and is already back to crunching again and she now feels like the left 1 is doing the same. She is also still having pain and some clicking with the right hip which is very concerning. She is also having some discomfort in the lower abdomen and then also seems to come around in the right lower back. * REVIEW OF SYSTEMS: 12 systems negative except for those mentioned in the HPI. * PHYSICAL EXAMINATION: * Constitutional: The patient is alert, in no acute * distress. * Eyes: Extraocular movements are intact. * ENT: external ear canals patent * Neck: no JVD. * Heart: no JVD * Lungs: Normal respiration without stridor or nasal flaring * Psychiatric: Good judgment and insight. Normal affect and mood. * Skin: no rashes or lesions * MSK/neurologic: Cranial nerves II through grossly intact. Patient does have some paraspinal muscle spasm and tenderness on L3-L5 worse on the right than the left reproduces the patient's discomfort * Assessment: * per EMR * Plan: * I reviewed the patient's CT scan as well as blood work where she is anemic. She has started to bleed again and would I discussed with the URBAN PLANNING TEACHER possible progesterone clearing out her uterus. She didhave polypectomy and needs to follow-up with this. Also needs to make sure she is hydrated with an acute anemia drop to 9.1. Also am concerned the patient may have an underlying connective tissue disorder as she has now had 2 shoulder surgeries as well as also having adhesive capsulitis and the other shoulder. This is also combined with multiple joint pains laxities and dislocations. Is being referred to rheumatology. We will use a steroid and muscle relaxer as well as strengthening and heat patch on the back. I do believe that the back discomfort is viscerosomatic to the uterus which does correlate osteopathically with the nerve roots * This dictation was created using Hair[employer] dictation and may contain errors [facility] DO Work Phone: [phone]) 386-914506-20-2022 History of Present illness Narrative* Sussy Crane is a 26 yo female presenting as new patient for evaluation of polyarthralgia and rash.She has a history of prior labral tear of the R shoulder s/p arthroscopic repair and chronic pain of the cervical and thoracic spine and shoulders following a fall from a horse in 2013. She was evaluated by her PCP for ED follow-up 11/15 after going to the ED for neck pain w/associated radiculopathy of the LUE. She additionally noted a photosensitive rash and polyarthralgia. She was given tizanidine for neck and referred to Rheumatology for further evaluation. XR C-spine WNL. She has since beenseen by PCP for hip pain for which XR were obtained and demonstrated lateral spur of the L hip and possible cam impingement R hip but otherwise unremarkable. She had prior normal DUNG, RF, and inflammatory markers in 2012. * Today, patient reports she is here primarily because of her rash. She has had a recurrent rash thatbegan 6 years ago and has worsened over time. It seemed to be triggered by stress initially but nowoccurs spontaneously. It does get worse after being in the sun but occurs on non sun-exposed areas as well. She has seen multiple dermatologists for this. She had biopsies and has reports with her today. Reports indicate folliculitis, spongioform lesions, and psoriaform lesions. She has been prescribed topical triamcinolone as well as oral doxycycline which improve rash for * 1 week but it always returns. There is no active rash today but patient does have photos on her phone showing some areas of follicular rash which she reports are extremely itchy as well as confluent areas of purpura with scaling and scabbing. 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 * She has multiple other symptoms in addition to the rash including pain and diffuse swelling in her hands (not any joints in particular), b/l hip/low back/buttock pain since giving * 1.5yrs ago, Raynaud's phenomenon (toes turn blue, fingers turn white and tingly, previously dx by PCP), brain fog, fatigue, pleuritic chest pain (intermittent, no obvious triggers), intermittent diarrhea and constipation w/o melena or hematochezia, oral ulcers on the buccal mucosa and tongue. She has not travelled recently. [facility] Work Phone: [phone] Chief complaint Narrative - Reported* An interactive audio and video telecommunication system which permits real time communications between the patient (at the originating site) and provider (at the distant site) was utilized to providethis telehealth service. * Verbal consent was requested and obtained from SUSSY CRANE on this date, 10/11/2021 11:45 AM , fora telehealth visit. * est patient - discuss EMB results [facility] Work Phone: [phone]) [phone] History of Present illness Narrative* 26-year-old white female referred by Dr. Surya Nguyen for HEMATURIA, PELVIC PAIN, RECURRENT UTI .Patient has a history of ENDOMETRIOSIS. Also ACHILLES TENDINITIS. CAT scan of the abdomen and pelvis is negative. Urinalysis is negative. Urine culture shows no growth. GROSS HEMATURIA 1 month ago. 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 No family history of breast or prostate cancer. The patient does not smoke cigarettes. * Achilles tendinitis NO CIPRO * September 25, 2021, patient arrives alone. She states that she has had uterine polyps removed in the past. She states that she had gross hematuria and is quite concerned and anxious about that development. Her urine studies were negative. We reviewed the etiology of hematuria. This included stone disease, trauma, urinary tract infections, and bladder lesions. She wishes to pursue a cystoscopy. [facility] Work Phone: [phone]) 325-614503-08-2022 Physician Emergency department Note* Boogie Gabriel MD - 08/03/2021 12:03 AM EST DEPARTMENT OF EMERGENCY MEDICINE CHIEF COMPLAINT Abdominal Pain (Bilateral flank pain, with left sided abdominal stating that it feels hard, a monthlate on period but home tests negative. Denies n/v/d and constipation. ) HPI Sussy Crane is a 26 y.o. female who presents with intermittent abdominal pains for about 3 weeks. The pain moves to different locations in her abdomen. She has chronic diarrhea since having her gallbladder taken out. No fevers or chills. No vomiting. She did note some blood in her urine. REVIEW OF SYSTEMS Review of Systems Constitutional: No fevers, no chills Eyes: No vision change, no drainage ENT: No ear pain, no sore throat Cardiovascular: No chest pain, no edema Respiratory: No shortness of breath, no cough Gastrointestinal: No vomiting, no diarrhea Genitourinary: No dysuria, positive hematuria Musculoskeletal: No joint pain, no joint swelling Integumentary: No rash, no itching Neurologic: No headache, no confusion Psychiatric: No anxiety, no depression PAST MEDICAL HISTORY Past Medical History: Diagnosis Date Anxiety and depression Cholelithiasis 07/27/2020 Contact dermatitis GERD (gastroesophageal reflux disease) Mild acid reflux Personal history of ECMO 1997 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 Current Outpatient Medications Medication Sig Dispense Refill dicyclomine 20 MG tablet Take 1 tablet by mouth every 6 hours. For abdominal spasms 20 tablet 0 fluocinonide 0.05 % ointment Apply 1 Application topically 2 times daily. As needed for rash; avoidface, groin, underarms (Patient not taking: Reported on 08/07/2020) 60 g 3 omepraz[address] Take 10 mg by mouth daily. ondansetron 4 MG Tab Dispersible tablet Take 1 tablet by mouth every 4 hours as needed for Nausea. Place on tongue (Patient not taking: Reported on 08/07/2020) 10 tablet 0 ondansetron 4 MG Tab Dispersible tablet Take 1 tablet by mouth every [address]. [address] on tongue (Patient not taking: Reported on 08/07/2020) 15 tablet 0 phenazopyridine 200 MG Tab tablet Take 1 tablet by mouth 3 times daily as needed for Pain (Urinary pain). (Patient not taking: Reported on 08/07/2020) 6 tablet 0 predniSONE 20 MG tablet 3 tabs daily x 3days; 2 tabs daily x 3days; 1 tab daily x 3days then 1/2 tablet daily x 3days 20 tablet 0 ALLERGIES Allergies Allergen Reactions Greenwald Rash Nickel Rash FAMILY HISTORY History reviewed. No pertinent family history. SOCIAL HISTORY Social History Socioeconomic History Marital status: Single Spouse name: Not on file Number of children: Not on file Years of education: Not on file Highest education level: Not on file Occupational History Not on file Tobacco Use Smoking status: Never Smoker Smokeless tobacco: Never Used Vaping Use Vaping Use: Never used Substance and Sexual Activity Alcohol use: Yes Alcohol/week: 1.0 standard drink Types: 1 Shots of liquor per week Comment: once a month Drug use: No Sexual activity: Not on file Other Topics Concern Not on file Social History Narrative Not on file Social Determinants of Health Financial Resource Strain: Not on file Food Insecurity: Not on file Transportation Needs: Not on file Physical Activity: Not on file Stress: Not on file Social Connections: Not on file Intimate Partner Violence: Not on file Housing Stability: Not on file PHYSICAL EXAM BP 152/69 Pulse 77 Temp 98.4 F (36.9 C) (Oral) Resp 18 Ht 1.626 m (5' 4 ) SpO2 99% BMI 27.12 kg/m Smoking Status Never Smoker Physical Exam The patient is well-developed, well-nourished, and in no acute distress. Head is atraumatic and normocephalic. Pupils are equal and reactive. Face is symmetric. Mucous membranes are moist. Neck is supple. Heart is regular rate and rhythm. Lungs are clear to auscultation. Abdomen is soft, nontender, nondistended. Skin is warm and dry. Extremities are warm and well perfused and without acute deformity. Neurologically, the patient is awake, alert, and without acute deficit. Psychiatrically, the patient is calm and cooperative. ED COURSE & MEDICAL DECISION MAKING CT scan shows some inflammation of the urinary bladder along with some constipation. Urinalysis didshow some blood in the urine, but also showed significant contamination. I will go and put her on an antibiotic in case she has a UTI. I will put her on some stool softeners. Follow up with primary care Boogie Gabriel MD 08/03/21 0210 [facility]03-08-2022 Emergency department Note* Boogie Gabriel MD - 08/03/2021 12:03 AM EST DEPARTMENT OF EMERGENCY MEDICINE CHIEF COMPLAINT Abdominal Pain (Bilateral flank pain, with left sided abdominal stating that it feels hard, a monthlate on period but home tests negative. Denies n/v/d and constipation. ) SPENSER Crane is a 26 y.o. female who presents with intermittent abdominal pains for about 3 weeks. The pain moves to different locations in her abdomen. She has chronic diarrhea since having her gallbladder taken out. No fevers or chills. No vomiting. She did note some blood in her urine. REVIEW OF SYSTEMS Review of Systems Constitutional: No fevers, no chills Eyes: No vision change, no drainage ENT: No ear pain, no sore throat Cardiovascular: No chest pain, no edema Respiratory: No shortness of breath, no cough Gastrointestinal: No vomiting, no diarrhea Genitourinary: No dysuria, positive hematuria Musculoskeletal: No joint pain, no joint swelling Integumentary: No rash, no itching Neurologic: No headache, no confusion Psychiatric: No anxiety, no depression PAST MEDICAL HISTORY Past Medical History: Diagnosis Date Anxiety and depression Cholelithiasis 07/27/2020 Contact dermatitis GERD (gastroesophageal reflux disease) Mild acid reflux Personal history of [facility] 1995 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 Current Outpatient Medications Medication Sig Dispense Refill dicyclomine 20 MG tablet Take 1 tablet by mouth every 6 hours. For abdominal spasms 20 tablet 0 fluocinonide 0.05 % ointment Apply 1 Application topically 2 times daily. As needed for rash; avoidface, groin, underarms (Patient not taking: Reported on 08/07/2020) 60 g [address] omepraz[address] Take 10 mg by mouth daily. ondansetron 4 MG Tab Dispersible tablet Take 1 tablet by mouth every 4 hours as needed for Nausea. Place on tongue (Patient not taking: Reported on 08/07/2020) 10 tablet 0 ondansetron 4 MG Tab Dispersible tablet Take 1 tablet by mouth every [address]. [address] on tongue (Patient not taking: Reported on 08/07/2020) 15 tablet 0 phenazopyridine 200 MG Tab tablet Take 1 tablet by mouth 3 times daily as needed for Pain (Urinary pain). (Patient not taking: Reported on 08/07/2020) 6 tablet 0 predniSONE 20 MG tablet 3 tabs daily x 3days; 2 tabs daily x 3days; 1 tab daily x 3days then 1/2 tablet daily x 3days 20 tablet 0 ALLERGIES Allergies Allergen Reactions Greenwald Rash Nickel Rash FAMILY HISTORY History reviewed. No pertinent family history. SOCIAL HISTORY Social History Socioeconomic History Marital status: Single Spouse name: Not on file Number of children: Not on file Years of education: Not on file Highest education level: Not on file Occupational History Not on file Tobacco Use Smoking status: Never Smoker Smokeless tobacco: Never Used Vaping Use Vaping Use: Never used Substance and Sexual Activity Alcohol use: Yes Alcohol/week: 1.0 standard drink Types: 1 Shots of liquor per week Comment: once a month Drug use: No Sexual activity: Not on file Other Topics Concern Not on file Social History Narrative Not on file Social Determinants of Health Financial Resource Strain: Not on file Food Insecurity: Not on file Transportation Needs: Not on file Physical Activity: Not on file Stress: Not on file Social Connections: Not on file Intimate Partner Violence: Not on file Housing Stability: Not on file PHYSICAL EXAM BP 152/69 Pulse 77 Temp 98.4 F (36.9 C) (Oral) Resp 18 Ht 1.626 m (5' 4 ) SpO2 99% BMI 27.12 kg/m Smoking Status Never Smoker Physical Exam The patient is well-developed, well-nourished, and in no acute distress. Head is atraumatic and normocephalic. Pupils are equal and reactive. Face is symmetric. Mucous membranes are moist. Neck is supple. Heart is regular rate and rhythm. Lungs are clear to auscultation. Abdomen is soft, nontender, nondistended. Skin is warm and dry. Extremities are warm and well perfused and without acute deformity. Neurologically, the patient is awake, alert, and without acute deficit. Psychiatrically, the patient is calm and cooperative. ED COURSE & MEDICAL DECISION MAKING CT scan shows some inflammation of the urinary bladder along with some constipation. Urinalysis didshow some blood in the urine, but also showed significant contamination. I will go and put her on an antibiotic in case she has a UTI. I will put her on some stool softeners. Follow up with primary care Boogie Gabriel MD 08/03/210 [facility] History of Present illness NarrativePatient here for new patient care for evaluation of abnormal bleeding and pain. She has been wyzoagtvz-[id number]-rf bleeding for the last month along with pain. She saw her PCP for this and she was also having hematuria, he ordered a CAT scan and a urine culture. Urine culture showed large blood. She denies any pain with a full bladder. She does have some nausea with the pain and also has some occasional constipation, she denies any vomiting or diarrhea. She has no history of kidney stones. Her another provider (unknown name but possibly of [employer]) gave her medication to take for 3 days to stop her bleeding but she does not know the name of it. She has a history of chlamydia diagnosed [id number] but no other STDs, denies vaginal discharge. control is condoms but she is not using 100%. She is a with a in 1. Had a normal colonoscopy in 2020 per [facility] records. Pap in 2020 atOB, no Hx of HGSIL.[facility] Work Phone: 1(920) 776-571603-06-2022 History of Present illness NarrativePatient here for new patient care for evaluation of abnormal bleeding and pain. She has been ritbloyaq-kfb-[id number] bleeding for the last month along with pain. She saw her PCP for this and she was also having hematuria, he ordered a CAT scan and a urine culture. Urine culture showed large blood. She denies any pain with a full bladder. She does have some nausea with the pain and also has some occasional constipation, she denies any vomiting or diarrhea. She has no history of kidney stones. Her another provider (unknown name but possibly of [employer]) gave her medication to take for 3 days to stop her bleeding but she does not know the name of it. She has a history of chlamydia diagnosed [id number] but no other STDs, denies vaginal discharge. control is condoms but she is not using 100%. She is a with a in 1. Had a normal colonoscopy in 2020 per [facility] records. Pap in 2020 atOB, no Hx of HGSIL.[facility] Work Phone: 1(563) 899-492101-03-2022 History of Present illness Narrative* She is here today for history and physical exam. Patient with recurrent right labral tearing. Will undergo right shoulder arthroscopy. * I have personally reviewed the OARRS report for this patient. This report is scanned into the electronic medical record. I have considered the risks of abuse, dependence, addiction and diversion. * patient has a pain level 7-8 * . [facility] [place] Work Phone: [phone]) 844-310012-18-2021 History of Present illness Narrative* Patient is here for follow-up of shoulder surgery with titanium inserted on the right. This was done a month ago and does not have a follow-up until next month. She is doing physical therapy but is concerned that there may be an infection in the incision. Also she feels like she is going to go crazy with her anxiety. She is feeling a lot with her mother and her baby grandmother. She would like to go back on the Celexa as she ran out of the medication that seem to be doing well. * REVIEW OF SYSTEMS: 12 systems negative except for those mentioned in the HPI. * PHYSICAL EXAMINATION: * Constitutional: The patient is alert, in no acute * distress. * Eyes: Extraocular movements are intact. * ENT: external ear canals patent * Neck: no JVD. * Heart: no JVD * Lungs: Normal respiration without stridor or nasal flaring * Psychiatric: Good judgment and insight. Normal affect and mood. * Skin: Incision with a little bit of fluctuance at the end in the armpit of the right. Patient's armis in a sling. I thought this was possibly just a retained suture and with a light squeeze moderateamount of pus came out. * Assessment: * per EMR * Plan: * Patient will be immediately placed on Bactrim for 14 days and should immediately follow-up with surgeon for concern of superficial infection versus deeper infection. I was unable to get culture. I will also go back on the Celexa and have BuSpar as needed. Discussed picking up the book boundaries and to discuss this to help reestablish herself as an adult and has an apparent. Follow-up with her surgeon with me in 3 months * This dictation was created using [employer] dictation and may contain errors [facility] DO Work Phone: [phone]) 866-811712-15-2021 History of Present illness Narrative* I have personally reviewed the OARRS report for this patient. This report is scanned into the electronic medical record. I have considered the risks of abuse, dependence, addiction and diversion. * patient has a pain level 7-8 * . [facility] DO Work Phone: [phone] 938-898512-14-2021 History of Present illness NarrativePatient here for right shoulder arthroscopic capsulorrhaphy, 05/11/2021.[facility] DO Work Phone: [phone] History of Present illness Narrative* I have personally reviewed the OARRS report for this patient. This report is scanned into the electronic medical record. I have considered the risks of abuse, dependence, addiction and diversion. * patient has a pain level 7-8 * . [facility] DO Work Phone: [phone] 381-149207-16-2021 Emergency department Note* Thomas Phillips MD - 12/11/2020 12:40 AM EDT ED PROVIDER NOTE [facility] EMERGENCY DEPARTMENT NAME: Sussy Crane AGE: 25 y.o. : 1995 VISIT DATE: 12/11/2020 CSN: [id number] PCP: Physician No Chief Complaint Patient presents with Abdominal Pain Rash This is a 25-year-old coming into the emergency room complaining of crops of lesion involvement in the medial left arm extending to the the armpit that she has had for about a week. Patient states she has had similar lesions on the other side and also around her flank in the past. She stated these lesions disappeared and now this reappeared. She denies fever or chills. Patient was seen in the clinic and was placed on prednisone. She states she has since been on prednisone the lesions have not improved. She does not however like the way prednisone makes her feel. She also states the itching has not improved with prednisone Past Medical History: Diagnosis Date Herpes History of extracorporeal life support as a PONV (postoperative nausea and vomiting) Past Surgical History: Procedure Laterality Date CHOLECYSTECTOMY LAPAROSCOPIC N/A 08/20/2020 Procedure: CHOLECYSTECTOMY LAPAROSCOPIC; Surgeon: Tomy Lomax MD; Location: [facility] [place]; Service: General Surgery SHOULDER ARTHROSCOPY W/ LABRAL REPAIR Right slap tear WISDOM TOOTH EXTRACTION Family History Problem Relation Age of Onset BALDOMERO disease Maternal Grandfather Heart attack Maternal Grandfather Colon cancer Maternal Grandfather unknown age of onset Prostate cancer Maternal Grandfather unknown age of onset Social History Socioeconomic History Marital status: Single Spouse name: Not on file Number of children: Not on file Years of education: Not on file Highest education level: Not on file Occupational History Not on file Tobacco Use Smoking status: Never Smoker Smokeless tobacco: Never Used Vaping Use Vaping Use: Never used Substance and Sexual Activity Alcohol use: Not Currently Drug use: Not Currently Sexual activity: Not on file Other Topics Concern Not on file Social History Narrative Not on file Social Determinants of Health Financial Resource Strain: Difficulty of Paying Living Expenses: Food Insecurity: Worried About Running Out of Food in the Last Year: Ran Out of Food in the Last Year: Transportation Needs: Lack of Transportation (Medical): Lack of Transportation (Non-Medical): Physical Activity: Days of Exercise per Week: Minutes of Exercise per Session: Stress: Feeling of Stress : Social Connections: Frequency of Communication with Friends and Family: Frequency of Social Gatherings with Friends and Family: Attends [employer] Services: Active Member of Clubs or Organizations: Attends Club or Organization Meetings: Marital Status: Previous Medications Medication Sig citalopram (CELEXA) 20 MG tablet Take 20 mg by mouth daily . dicyclomine (BENTYL) 10 MG capsule Take 10 mg by mouth 4 (four) times a day before meals and nightly . famotidine (PEPCID) 20 MG tablet Take 1 (one) tablet (20 mg total) by mouth 2 (two) times a day . ibuprofen (ADVIL,MOTRIN) 800 MG tablet Take 1 (one) tablet (800 mg total) by mouth every 8 (eight) hours as needed for pain . omeprazole (PRILOSEC) 20 MG capsule Take 20 mg by mouth daily . SF 5000 Plus 1.1 % Crea brush teeth EVERY NIGHT AT BEDTIME and spit do not rinse Allergies Allergen Reactions Greenwald Nickel Review of Systems Musculoskeletal: Left arm lesions All other systems reviewed and are negative. Patient Vitals for the past 24 hrs: BP Temp Pulse Resp SpO2 12/11/20 0040 126/83 98.7 F (37.1 C) 74 16 99 % Physical Exam Vitals and nursing note reviewed. Constitutional: General: She is not in acute distress. Appearance: She is not ill-appearing, toxic-appearing or diaphoretic. Cardiovascular: Rate and Rhythm: Normal rate and regular rhythm. Heart sounds: Normal heart sounds. No murmur heard. No friction rub. Pulmonary: Effort: Pulmonary effort is normal. No respiratory distress. Breath sounds: Normal breath sounds. No stridor. No wheezing, rhonchi or rales. Chest: Chest wall: No tenderness. Abdominal: General: Abdomen is flat. Bowel sounds are normal. There is no distension or abdominal bruit. Palpations: Abdomen is soft. Tenderness: There is no abdominal tenderness. Skin: Comments: There are fairly round erythematous and slightly raised dry crops of lesion in the medialleft arm extending to the right armpit. No purulent discharge. Laboratory & Radiographic Imaging (if done): No results found for this visit on 12/11/20. No orders to display Procedures MDM Number of Diagnoses or Management Options Rash Diagnosis management comments: This patient presents with a crop of lesions in the left medial arm as described above. The lesions have resemblance of shingles. However, based on patient's age as well as the fact that she states she has had similar lesions on the other side also in the flank that had resolved in the recent past makes this to be unlikely to be caused by shingles. At this point there is no signs of bacterial in infection. Patient has been taking prednisone in the past 2 days which did not help with the lesions. She does not like the way prednisone makes him feel so I told her to stop the prednisone. At this point patient is advised to consult with her primary care physician for further care and recommendations. The patient has been informed that they may have pre-hypertension or hypertension based on a blood pressure reading in the Emergency Department. I recommend that the patient call the primary care provider listed on their discharge instructions or a physician of their choice as soon as possible to arrange follow-up in the next 4 weeks for further evaluation of possible pre-hypertension or hypertension. . Clinical Impression: 1. Rash ED Disposition ED Disposition Condition Comment Discharge Stable Sussy Crane discharged to home/self care in stable condition. Follow-up Information Follow-up information has not been specified. Contact information for after-discharge care Follow-up information has not been specified. Thomas Phillips MD 12/11/20 0059 * Javier Aponte RN - 12/11/2020 12:36 AM EDT PATIENT REPORTS ABDOMINAL PAIN THAT STARTED EARLIER TODAY. PATIENT STATES THAT SHE ALSO HAS A RASH THAT SHE HAS HAD FOR A WEEK AND IS CURRENTLY ON PREDNISONE. documented in this [id number] Emergency department Note* Shantel Ward RN - 10/27/2020 5:48 AM EDT Pt voices understanding of d.c instructions and follow up. Has no further concerns or needs at thistime. Ambulates from unit with steady gait * Liza Ferris RN - 10/27/2020 3:14 AM EDT THIS RN UNSUCCESSFUL WITH IV ATTEMPT, YANICK VELÁZQUEZ. CALLED RAPID RESPONSE RN FOR U/S IV * Ce Hastings MD - 10/27/2020 2:48 AM EDT Associated Order(s): EKG 12-lead ED PROVIDER NOTE [facility] EMERGENCY DEPARTMENT NAME: Sussy Crane AGE: 25 y.o. : 1995 VISIT DATE: 10/27/2020 CSN: [id number] PCP: Carlito Martin MD Chief Complaint Patient presents with Abdominal Pain 25-year-old female with past medical history significant for prior cholecystectomy presents emergency department with complaints of intermittent epigastric and left upper quadrant abdominal pain. States has been happening intermittently ever since she had the surgery however the last 2 to 3 days ithas been constant. She states that it is worse at some points to where she has to bend over and almost passes out. It is not related to food intake. Patient reports persistent diarrhea since the surgery as well. Associated nausea no vomiting. She has not been taking thing for the pain. No urinary symptoms. No report of fever. Past Medical History: Diagnosis Date Herpes History of extracorporeal life support as a PONV (postoperative nausea and vomiting) Past Surgical History: Procedure Laterality Date CHOLECYSTECTOMY LAPAROSCOPIC N/A 08/20/2020 Procedure: CHOLECYSTECTOMY LAPAROSCOPIC; Surgeon: Tomy Lomax MD; Location: [facility]; Service: General Surgery SHOULDER ARTHROSCOPY W/ LABRAL REPAIR Right slap tear WISDOM TOOTH EXTRACTION Family History Problem Relation Age of Onset BALDOMERO disease Maternal Grandfather Heart attack Maternal Grandfather Colon cancer Maternal Grandfather unknown age of onset Prostate cancer Maternal Grandfather unknown age of onset Social History Socioeconomic History Marital status: Single Spouse name: Not on file Number of children: Not on file Years of education: Not on file Highest education level: Not on file Occupational History Not on file Tobacco Use Smoking status: Never Smoker Smokeless tobacco: Never Used Vaping Use Vaping Use: Never used Substance and Sexual Activity Alcohol use: Not Currently Drug use: Not Currently Sexual activity: Not on file Other Topics Concern Not on file Social History Narrative Not on file Social Determinants of Health Financial Resource Strain: Difficulty of Paying Living Expenses: Food Insecurity: Worried About Running Out of Food in the Last Year: Ran Out of Food in the Last Year: Transportation Needs: Lack of Transportation (Medical): Lack of Transportation (Non-Medical): Physical Activity: Days of Exercise per Week: Minutes of Exercise per Session: Stress: Feeling of Stress : Social Connections: Frequency of Communication with Friends and Family: Frequency of Social Gatherings with Friends and Family: Attends [employer] Services: Active Member of Clubs or Organizations: Attends Club or Organization Meetings: Marital Status: Previous Medications Medication Sig citalopram (CELEXA) 20 MG tablet Take 20 mg by mouth daily . dicyclomine (BENTYL) 10 MG capsule Take 10 mg by mouth 4 (four) times a day before meals and nightly . ibuprofen (ADVIL,MOTRIN) 800 MG tablet Take 1 (one) tablet (800 mg total) by mouth every 8 (eight) hours as needed for pain . omeprazole (PRILOSEC) 20 MG capsule Take 20 mg by mouth daily . SF 5000 Plus 1.1 % Crea brush teeth EVERY NIGHT AT BEDTIME and spit do not rinse Allergies Allergen Reactions Greenwald Nickel Review of Systems Constitutional: Negative for fever. HENT: Negative for facial swelling and sore throat. Eyes: Negative for pain, discharge and visual disturbance. Respiratory: Negative for cough, chest tightness and shortness of breath. Cardiovascular: Negative for chest pain, palpitations and leg swelling. Gastrointestinal: Positive for abdominal pain, diarrhea and nausea. Negative for constipation and vomiting. Endocrine: Negative for polydipsia and polyuria. Genitourinary: Negative for dysuria and hematuria. Musculoskeletal: Negative for back pain and gait problem. Skin: Negative for pallor and rash. Allergic/Immunologic: Negative for immunocompromised state. Neurological: Negative for dizziness, seizures, syncope and headaches. Hematological: Negative for adenopathy. Psychiatric/Behavioral: Negative for behavioral problems and suicidal ideas. All other systems reviewed and are negative. Patient Vitals for the past 24 hrs: BP Temp Temp src Pulse Resp SpO2 Height Weight 10/27/20 0501 (!) 117/57 (!) 51 100 % 10/27/20 0454 128/62 (!) 58 100 % 10/27/20 0400 112/67 (!) 55 99 % 10/27/20 0330 122/67 (!) 52 100 % 10/27/20 0230 (!) 145/89 74 100 % 10/27/20 0217 130/76 98.5 F (36.9 C) Oral (!) 55 16 100 % 5' 4 66.7 kg (147 lb) Physical Exam Vitals and nursing note reviewed. Constitutional: General: She is not in acute distress. Appearance: Normal appearance. She is not ill-appearing. HENT: Head: Normocephalic and atraumatic. Right Ear: Ear canal and external ear normal. Left Ear: Ear canal and external ear normal. Nose: Nose normal. No rhinorrhea. Mouth/Throat: Mouth: Mucous membranes are moist. Pharynx: Oropharynx is clear. No oropharyngeal exudate. Eyes: General: No scleral icterus. Conjunctiva/sclera: Conjunctivae normal. Pupils: Pupils are equal, round, and reactive to light. Cardiovascular: Rate and Rhythm: Normal rate and regular rhythm. Pulses: Normal pulses. Heart sounds: Normal heart sounds. No murmur heard. Pulmonary: Effort: Pulmonary effort is normal. No respiratory distress. Breath sounds: Normal breath sounds. No wheezing. Abdominal: General: Bowel sounds are normal. Palpations: Abdomen is soft. Tenderness: There is abdominal tenderness in the epigastric area and left upper quadrant. There is no guarding or rebound. Musculoskeletal: General: No swelling or signs of injury. Normal range of motion. Cervical back: Neck supple. No rigidity. Right lower leg: No edema. Left lower leg: No edema. Skin: General: Skin is warm. Capillary Refill: Capillary refill takes less than 2 seconds. Coloration: Skin is not jaundiced. Findings: No rash. Neurological: General: No focal deficit present. Mental Status: She is alert and oriented to person, place, and time. Cranial Nerves: No cranial nerve deficit. Sensory: No sensory deficit. Motor: No weakness. Gait: Gait normal. Psychiatric: Mood and Affect: Mood normal. Behavior: Behavior normal. Laboratory & Radiographic Imaging (if done): Results for orders placed or performed during the hospital encounter of 10/27/20 Chem 7 Result Value Ref Range Sodium 140 135 - 145 mmol/L Potassium 3.4 (L) 3.5 - 5.1 mmol/L Chloride 107 98 - 108 mmol/L Bicarbonate 26 21 - 32 mmol/L Creatinine 0.82 0.40 - 1.10 mg/dL Glucose 76 65 - 99 mg/dL BUN 8 8 - 25 mg/dL eGFR 101 >=60 mL/min/1.73 m2 BUN/Creatinine Ratio 9.8 (L) 10.0 - 20.0 Anion Gap 10 10 - 20 mmol/L Hepatic Function Panel (LFT) Result Value Ref Range Total Protein 8.1 (H) 6.0 - 8.0 g/dL Albumin 4.3 3.2 - 5.2 g/dL Total Bilirubin 0.2 0.0 - 1.3 mg/dL Bilirubin, Direct <0.1 0.0 - 0.4 mg/dL Alkaline Phosphatase 109 40 - 140 U/L AST 16 0 - 45 U/L ALT 30 14 - 65 U/L Lipase Result Value Ref Range Lipase 98 73 - 393 U/L Urinalysis Result Value Ref Range Color, Urine Colorless Colorless, Yellow Clarity, Urine Clear Clear Specific [place] 1.006 1.005 - 1.025 pH, Urine 6.0 5.0 - 7.0 Protein, Urine Negative Negative mg/dL Glucose, Urine Negative Negative mg/dL Ketones, Urine Negative Negative mg/dL Bilirubin, Urine Negative Negative Urobilinogen, Urine <2.0 <2.0 mg/dL Blood, Urine Negative Negative Nitrite, Urine Negative Negative Leukocyte Esterase, Urine Trace (A) Negative RBCs, Urine 5 (H) 0 - 3 /hpf Bacteria, Urine None Seen None Seen /hpf Squamous Epithelial 2 0 - 4 /hpf HCG (QUALITATIVE) Result Value Ref Range Beta-hCG Qual Negative Negative CBC Auto Differential Result Value Ref Range WBC 7.13 4.50 - 11.00 K/mcL RBC 4.55 4.00 - 5.20 M/mcL Hemoglobin 10.7 (L) 12.0 - 16.0 g/dL Hematocrit 34.7 (L) 36.0 - 46.0 % MCV 76.3 (L) 80.0 - 100.0 fL MCH 23.5 (L) 26.0 - 34.0 pg MCHC 30.8 (L) 31.0 - 37.0 g/dL Platelets 362 150 - 400 K/mcL RDW - CV 15.3 (H) 11.6 - 14.8 % MPV 9.7 9.4 - 12.4 fL Neutrophils 39.6 % Lymphocytes 53.0 % Monocytes 5.9 % Eosinophils 1.1 % Basophils 0.3 % IG Percent 0.10 % Neutrophils Abs 2.82 1.70 - 7.00 K/mcL Lymphocytes Abs 3.78 0.90 - 4.00 K/mcL Monocytes Abs 0.42 0.30 - 0.90 K/mcL Eosinophils Abs 0.08 0.00 - 0.50 K/mcL Basophils Abs 0.02 0.00 - 0.30 K/mcL IG Absolute 0.01 0.00 - 0.30 K/mcL Nucleated RBC 0.0 % Nucleated RBC Abs 0.00 0.00 - 0.00 K/mcL CT Abdomen Pelvis With IV Contrast Only Final Result 1. Pelvic free fluid within the posterior cul-de-sac and surrounding the right ovary is likely secondary to recent ovulation. There is no fluid collection or hematoma. No findings of active arterial extravasation. 2. No other acute abdominal or pelvic abnormality. 3. Normal appendix and no adenopathy. [employer] Workstation ID: [id number] EKG 12-lead Date/Time: 10/27/2020 4:33 AM Performed by: Ce Hastings MD Authorized by: Ce Hastings MD Interpreted by ED attending physician Comparison: not compared with previous ECG Rhythm: sinus rhythm and sinus bradycardia BPM: 58 Conduction: conduction normal ST Segments: ST segments normal QRS axis: normal T Waves: T waves normal normal ND interval normal QRS interval normal QT interval ND Interval: 134 QRS Interval: 88 QT Interval: 416 Other: no other findings Clinical impression: normal ECG and sinus bradycardia MDM Differential considerations include but are not limited to choledocholithiasis, biliary leak, gastritis, gastric ulcer, pancreatitis, gallstone pancreatitis amongst others. Records Reviewed: Patient was last seen and evaluated in the emergency department postoperatively on September 21, 2020 for right upper quadrant abdominal pain. Will plan to obtain laboratory work-up while here within the emergency department including a CT ofthe abdomen pelvis. We will also provide pain medication as needed Labs and radiology were reviewed. No significant abnormality. I suspect likely gastric source. Outpatient follow-up with GI. Patient's abdomen is benign. Negative work-up ED Course as of Oct 27 532 Tue Oct 27, 2020 0446 Normal laboratory work-up. [EV] ED Course User Index [EV] Ce Hastings MD . . Clinical Impression: 1. Left upper quadrant abdominal pain 2. Diarrhea, unspecified type ED Disposition ED Disposition Condition Comment Discharge Stable Sussy Schaab discharged to home/self care in stable condition. Follow-up Information 1. Tomy Lomax MD. Specialties: General Surgery, Trauma [address] [place] [id number] 2. Fab Main MD. Specialty: Gastroenterology [address] [id number] Contact information for after-discharge care Follow-up information has not been specified. New Prescriptions famotidine (PEPCID) 20 MG tablet Take 1 (one) tablet (20 mg total) by mouth 2 (two) times a day . Ce Hastings MD 10/27/20532 * Shantel Ward RN - 10/27/2020 2:15 AM EDT Pt 4 months post , 2 months post gallbladder removal. Pt reports pain in her L upper abd thatis like she is constantly being punched . Sometimes gets stabbing pain. Can be relieved if she bends over for a short time but pain comes back. States she wakes up with the pain. Pt reports large amounts of diarrhea. documented in this [id number] History of Present illness Narrative* Tomy Lomax MD - 09/23/2020 2:27 PM EDT [facility] PATIENT: Sussy Crane DATE / TIME: 09/23/20 2:27 PM POS: Office AGE: 25 y.o. : 1995 RACE: [1] SEX: female PCP: Carlito Martin MD REFERRAL: No ref. provider found TOS: SUBJECTIVE: 25-year-old female with past medical history of gallstone pancreatitis status post laparoscopic cholecystectomy on 08/20/2020. Returns today after being seen in the emergency room on 09/22/2020 for complaints of periumbilical pain. She describes this as being similar to what she experienced before surgery. Denies any nausea or vomiting. Reports that she has been tolerating a regular diet at home. Of note she does complain of also lower abdominal pelvic pain and pressure and reports that she is currently menstruating. After being seen in the emergency room lab work was obtained that was within normal limits except for a hemoglobin of 9.9. Additionally fluid was present in the pelvis and was considered physiologic and likely related to perhaps a ruptured ovarian cyst. She denies any significant difficulty with her bowel movements or bright red blood per rectum OBJECTIVE: BP 104/63 (BP Location: Left arm, Patient Position: Sitting, BP Cuff Size: Adult) Pulse 60 Ht 5' 4 Wt 66.6 kg (146 lb 12.8 oz) LMP 09/16/2020 (Exact Date) SpO2 97% BMI 25.20 kg/m PE General awake alert no acute distress Respiratory nonlabored on room air CV nontachycardic Abdomen is soft, nondistended nontender in all 4 quadrants. Main area of tenderness is at the supraumbilical incision. No significant fluctuation. On head left and standing exam there is no significant hernia. Lab Results Component Value Date WBC 6.70 09/21/2020 RBC 4.28 09/21/2020 HGB 9.9 (L) 09/21/2020 HCT 33.4 (L) 09/21/2020 PLT 328 09/21/2020 No results found for: AMYLASE No results found for: LIPASE IMAGING: PATHOLOGY: Final Diagnosis A. Gallbladder, cholecystectomy: Chronic cholecystitis with cholelithiasis. ASSESSMENT: 25-year-old female with past medical history of gallstone pancreatitis status post laparoscopic cholecystectomy on 08/20/2020 returns today because of complaints of periumbilical pain PLAN: Patient Active Problem List Diagnosis 39 weeks gestation of Gallstone pancreatitis Symptomatic cholelithiasis Abdominal pain Abnormal LFTs Status post laparoscopic cholecystectomy Overall her incisions are well-appearing on exam there is no evidence of an incisional hernia. Review of the CT imaging from the ER does not identify any abnormality in the surgical bed or at the sites of her incisions. Explained to her that there is some fluid in the pelvis consistent for perhaps with her menstruation versus ruptured ovarian cyst. Additionally her hemoglobin is low at 9. Encouraged her to follow-up with her [employer] as she is currently approximately 2 months . documented in this [id number] Miscellaneous Notes* ED Attestation Note - Manuel Trujillo MD - 09/22/2020 12:56 AM EDT Patient seen and evaluated by myself. Patient presented to the emergency department for reason of right upper quadrant abdominal pain. Patient underwent laparoscopic cholecystectomy on 08/20/2020. Abdomen: Soft, nontender. Diagnostic impression: Right upper quadrant abdominal pain. Plan: Follow-up with Dr. Lomax. documented in this [id number] Emergency department Note* Briana Watson PA-C - 09/21/2020 10:30 PM EDT [facility] ED Provider Note: NAME: Sussy Crane 25 y.o. CSN: [id number] PCP: Carlito Martin MD History: Chief Complaint: Abdominal Pain HPI: The history was obtained from the patient. She is a 25 y.o. female who presents with a chief complaint of Abdominal Pain. Patient states that she had her gallbladder out August [address] Lomax. She states that she had been doing well until 2 days ago when she started having pain in the right upper abdomen and right shoulder area again up into her chest. She states this feels the same as it did before she had her gallbladder out. She feels slightly short of breath as well. No vomiting no diarrhea. PMHx: Past Medical History: Diagnosis Date Herpes History of extracorporeal life support as a PONV (postoperative nausea and vomiting) PMSx: Past Surgical History: Procedure Laterality Date CHOLECYSTECTOMY LAPAROSCOPIC N/A 08/20/2020 Procedure: CHOLECYSTECTOMY LAPAROSCOPIC; Surgeon: Tomy Lomax MD; Location: [facility] [place]; Service: General Surgery SHOULDER ARTHROSCOPY W/ LABRAL REPAIR Right slap tear WISDOM TOOTH EXTRACTION FAM. Hx: Family History Problem Relation Age of Onset BALDOMERO disease Maternal Grandfather Heart attack Maternal Grandfather Colon cancer Maternal Grandfather unknown age of onset Prostate cancer Maternal Grandfather unknown age of onset SOC. Hx: Social History Socioeconomic History Marital status: Single Spouse name: Not on file Number of children: Not on file Years of education: Not on file Highest education level: Not on file Occupational History Not on file Social Needs Financial resource strain: Not on file Food insecurity Worry: Not on file Inability: Not on file Transportation needs Medical: Not on file Non-medical: Not on file Tobacco Use Smoking status: Never Smoker Smokeless tobacco: Never Used Substance and Sexual Activity Alcohol use: Not Currently Drug use: Not Currently Sexual activity: Not on file Lifestyle Physical activity Days per week: Not on file Minutes per session: Not on file Stress: Not on file Relationships Social connections Talks on phone: Not on file Gets together: Not on file Attends gnosticism service: Not on file Active member of club or organization: Not on file Attends meetings of clubs or organizations: Not on file Relationship status: Not on file Other Topics Concern Not on file Social History Narrative Not on file MEDs: Previous Medications Medication Sig citalopram (CELEXA) 20 MG tablet Take 20 mg by mouth daily . dicyclomine (BENTYL) 10 MG capsule Take 10 mg by mouth 4 (four) times a day before meals and nightly . SF 5000 Plus 1.1 % Crea brush teeth EVERY NIGHT AT BEDTIME and spit do not rinse ALL: Allergies Allergen Reactions [place] Nickel ROS: Positives and pertinent negatives as per HPI. All other systems were reviewed and are negative. Physical Exam: Patient Vitals for the past 24 hrs: BP Temp Temp src Pulse Resp SpO2 Height Weight 09/22/20 0000 (!) 114/56 (!) 46 97 % 09/21/20 2300 123/71 (!) 49 16 96 % 09/21/20 2148 5' 4 66.7 kg (147 lb) 09/21/20 2138 (!) 145/67 98.1 F (36.7 C) Oral (!) 54 18 97 % Physical Exam Vitals signs and nursing note reviewed. Constitutional: General: She is not in acute distress. Appearance: She is well-developed. HENT: Head: Normocephalic and atraumatic. Eyes: Conjunctiva/sclera: Conjunctivae normal. Neck: Musculoskeletal: Normal range of motion and neck supple. Cardiovascular: Rate and Rhythm: Normal rate and regular rhythm. Pulmonary: Effort: Pulmonary effort is normal. No respiratory distress. Breath sounds: Normal breath sounds. Abdominal: General: Bowel sounds are normal. There is no distension. Palpations: Abdomen is soft. Tenderness: There is no guarding or rebound. Comments: Patient has right upper abdominal tenderness. Musculoskeletal: Normal range of motion. General: No swelling, tenderness, deformity or signs of injury. Skin: General: Skin is warm. Findings: No rash. Neurological: General: No focal deficit present. Mental Status: She is alert and oriented to person, place, and time. Cranial Nerves: No cranial nerve deficit. Sensory: No sensory deficit. Motor: No weakness or abnormal muscle tone. Coordination: Coordination normal. Psychiatric: Behavior: Behavior normal. Thought Content: Thought content normal. Judgment: Judgment normal. Laboratory & Radiological Imaging (if done): Labs Reviewed URINALYSIS - Abnormal; Notable for the following components: Result Value Color, Urine Light Red (*) Clarity, Urine Cloudy (*) Blood, Urine Large (*) Leukocyte Esterase, Urine Small (*) WBCs, Urine 12 (*) RBCs, Urine >180 (*) Bacteria, Urine Rare (*) All other components within normal limits Narrative: Microscopic examination is performed on all urinalysis samples and only positive findings are reported. The test for blood on the chemical analytic portion of urinalysis may also be positive due to hemoglobinuria and myoglobinuria and if red blood cells are present they are quantified by microscopic examination. BASIC METABOLIC PANEL - Abnormal; Notable for the following components: Anion Gap 9 (*) All other components within normal limits Narrative: The eGFR should be used for monitoring renal function only and not for medication dosing. CBC WITH AUTO DIFFERENTIAL - Abnormal; Notable for the following components: Hemoglobin 9.9 (*) Hematocrit 33.4 (*) MCV 78.0 (*) MCH 23.1 (*) MCHC 29.6 (*) All other components within normal limits LIPASE - Normal HCG, SERUM, QUALITATIVE - Normal Narrative: Negative: The result is less than or equal to 5 mIU/mL of HCG. HEPATIC FUNCTION PANEL - Normal D-DIMER, QUANTITATIVE - Normal Narrative: A D-dimer concentration of <0.5 micrograms per milliliter FEU is considered a low probability for pulmonary embolus (PE) and deep venous thrombosis (DVT). Results of this test should always be interpreted in conjunction with the patient's medical history,clinical presentation, and other findings. Clinical diagnosis should not be based on the results of the D-dimer alone. CBC AND DIFFERENTIAL Narrative: The following orders were created for panel order CBC w/ Diff. Procedure Abnormality Status --------- ------ CBC Auto Differential[[id number]] Abnormal Final result Please view results for these tests on the individual orders. CT Abdomen Pelvis With IV Contrast Only Non-public Result Trace pelvic ascites is likely physiologic in a patient this age. A ruptured ovarian cyst could potentially look similar. 1. Prior cholecystectomy. Normal appendix. Workstation ID: [id number] XR Chest 1 View Final Result No acute findings. DPR/rlc Workstation ID: [id number] EKG Patient had an EKG which was interpreted by the attending physician to show Sinus bradycardia at a rate of 50/min. [place] was normal, and no evidence of acute ST or T-wave changes, and no STEMI. An old EKG to compare it to was not available. Procedures: Procedures ED Course / Medical Decision Making: Patient is feeling improved here in the emergency room. Her CT scan does not show any indication for her pain her liver and pancreas enzymes look good D- dimer was negative chest x-ray was negative. She was should definitely follow-up with Dr. Lomax and her family physician. If she has any other pain problems or worsening symptoms she should return for evaluation. Clinical Impression: 1. Right upper quadrant abdominal pain Disposition: Patient is being discharged to home Briana Watson PA-C Physicians Transmission Line Engineer [facility] Emergency Department Briana Watson PA-C 09/22/20 0101 * Gaye Bustillos RN - 09/21/2020 9:50 PM EDT Pt arrives to er with complaints of pain to upper abdomen near diaphragm since Monday. Pt states she had her gallbladder taken out approximately a month ago and reports the pain feel similar. Pt denies nausea and vomiting. Pt states the pain radiates up into her rib cage on the left side. Pt is alert and oriented and in no distress. * John Barber LPN - 09/21/2020 9:46 PM EDT Bed: 10 Expected date: Expected time: Means of arrival: Comments: Next Pt 1 [facility] Diagnosis Right upper quadrant abdominal pain- Primary [facility] Diagnosis Postoperative pain- Primary Other acute postoperative pain Status post laparoscopic cholecystectomy Other postprocedural status [facility]* Diagnosis Left upper quadrant abdominal pain- Primary Diarrhea, unspecified type [facility] Diagnosis Rash- Primary Rash and other nonspecific skin eruption [facility]* Diagnosis Constipation, unspecified constipation type- Primary Acute cystitis with hematuria Acute cystitis [facility] Diagnosis Trapezius muscle spasm- Primary Spasm of muscle documented in this encounter Guide Phone: evaluation note* Diagnosis Menorrhagia with irregular cycle- Primary Excessive or frequent menstruation documented in this encounter Guide Phone: evaluation note* Diagnosis Menorrhagia with regular cycle- Primary Excessive or frequent menstruation [facility] Diagnosis Pain in joint, multiple sites- Primary Rash and nonspecific skin eruption Rash and other nonspecific skin eruption [facility]* Diagnosis Pain in joint, multiple sites- Primary Pain in right hip Pain in joint, pelvic region and thigh Fibromyalgia Mylagia and myositis, unspecified [facility]* Diagnosis Pain in right hip- Primary Pain in joint, pelvic region and thigh Pain in hip Pain in joint, pelvic region and thigh [facility]* Diagnosis Pelvic pain in female- Primary Unspecified symptom associated with female genital organs Dysmenorrhea Menometrorrhagia Excessive or frequent menstruation Female pelvic pain Unspecified symptom associated with female genital organs Anemia, unspecified type Dyspareunia in female Adenomyosis of uterus Preop testing Preoperative examination, unspecified Dyspareunia, female Dyspareunia Acute post-operative pain [facility]* Diagnosis Abdominal pain, generalized- Primary documented in this encounter Guide Phone: evalfrqhdh note* Diagnosis Urticaria- Primary Urticaria, unspecified documented in this encounter Guide Phone: evaluation note* Diagnosis Pain in joint, multiple sites [facility]* Diagnosis Pain in hip Pain in joint, pelvic region and thigh documented [facility] this [facility]* Diagnosis Polyarthralgia- Primary Pain in joint, multiple sites Rash and nonspecific skin eruption Rash and other nonspecific skin eruption [facility]* Diagnosis Intrinsic eczema- Primary documented in this encounter [facility] Work Phone: Evaluation note* Diagnosis Labral tear of shoulder, degenerative, right- Primary Acute pain of right shoulder Acute pain of right shoulder documented in this encounter [facility] Work Phone: Evaluation note* Diagnosis Labral tear of shoulder, degenerative, right documented in this encounter [facility] Work Phone: Evaluation note* Diagnosis Chronic right shoulder pain- Primary Pain in joint, shoulder region [facility] Diagnosis Pain in joint of right shoulder- Primary Pain in joint, shoulder region Shoulder weakness Other symptoms referable to shoulder joint Posture imbalance Disorders of soft tissue, unspecified Decreased range of motion of right shoulder Other symptoms referable to shoulder joint [facility] Diagnosis Chronic right shoulder pain- Primary Pain in joint, shoulder region [facility] Diagnosis Pain in joint of right shoulder- Primary Pain in joint, shoulder region Shoulder weakness Other symptoms referable to shoulder joint Posture imbalance Disorders of soft tissue, unspecified Decreased range of motion of right shoulder Other symptoms referable to shoulder joint [facility] Diagnosis Pain in joint of right shoulder- Primary Pain in joint, shoulder region Posture imbalance Disorders of soft tissue, unspecified [facility] Diagnosis High-tone pelvic floor dysfunction in female- Primary Urinary urgency Urgency of urination OAB (overactive bladder) Pelvic pain documented in this encounter [facility] Work Phone: Evaluation noteNo assessment information available [facility] Work Phone: Evaluation note* Diagnosis Onset Date Resolution Status Atopic dermatitis acute Cellulitis of right external ear acute [facility] Work Phone: Evaluation note* Diagnosis Sciatica of left side- Primary Chronic pain of left knee documented in this encounter [facility] Work Phone: Evaluation note* Diagnosis Sciatica of left side Chronic pain of left knee documented in this encounter [facility] Work Phone: History of Present illness NarrativePatient known labral repair. She had a Francesca complex. She had a direct repair of the labrum at [facility]. Recurrent labral tearing is seen now on follow up maria alejandra MRI. She has popping and catching in the shoulder; most likely an unstable labral complex. There is some inferior labral fraying as well.-[place] [facility] Work Phone: History of Present illness NarrativeHere today for history and physical exam. Patient with recurrent labral tear of the right shoulder will undergo right shoulder arthroscopy.[facility] Work Phone: History of Present illness Narrative* Here today status post right shoulder arthroscopy. She did have labral repair and a longhead bicepstenodesis. * I have personally reviewed the OARRS report for this patient. This report is scanned into the electronic medical record. I have considered the risks of abuse, dependence, addiction and diversion. * patient has a pain level 7-8 * . [facility] Work Phone: History of Present illness NarrativeHere today status post revision capsulorraphy. She is about three weeks out. Overall the shoulder is doing okay. She still has some transient paresthesias in her thumb on that right hand. She has full motor intact, however, she just reports an occasional numbness to the thumb or sometimes a paresthesia.[facility] Work Phone: History of Present illness Narrative* New Patient Visit: * CC: Right shoulder drainage status post right capsulorrhaphy * HPI: 26-year-old female patient of Dr. Radu Fisher is here with incision no drainage to the inferior anterior port site. She was seen and evaluated by her PCP earlier today with concern for infection. She presents here today for follow-up. She is 4 weeks out from her surgery. She denies any numbness tingling or burning denies any injury or trauma. States worsening pain to the front of her shoulder going across her chest. She denies any chest pain or shortness of breath however. Denies any fevers or chills. She denies any redness or change in the skin over the area of the wound. She is moderately uncomfortable overall. * Review of Systems, Past Medical History, Social History, and Family History documented and initialed on the patient information form dated 06/15/2021. * Physical Exam: * GENERAL: Patient is awake, alert, and oriented to person place and time. Patient appears well nourished and well kept. Affect Calm, Not Acutely Distressed. * HEENT: Normocephalic, Atraumatic, EOMI * CARDIOVASCULAR: Hemodynamically stable. * RESPIRATORY: Normal respirations with unlabored breathing. * NEURO: Gross sensation intact to the upper extremities bilaterally. * Extremity: Right anterior port site demonstrates minimal drainage bloody in nature. Moderate tenderness to palpation without any obvious redness or erythema. Worsening pain with decreased range of motion overall. Distal pulses sensation are intact. The remainder of the port site incisions appear clean dry intact and well-healed. No expressible purulent drainage material at this time. * Diagnostics: No new images * Procedure: None * Assessment: Incision and drainage concern for postop wound infection * Plan: We will offer the patient Keflex 4 times a day in addition to Bactrim for possible infection.She will follow-up with Dr. Fisher for the first available visit in 1 day for repeat evaluation and wound check. She received a prescription for Bactrim from her primary care physician earlier today. She was encouraged to fill both and immediately begin the antibiotics. * At the conclusion of the visit there were no further questions by the patient/family regarding their plan of care. Patient was instructed to call or return with any issues, questions, or concerns regarding their injury and/or treatment plan described above. * This note was prepared using voice recognition software. The details of this note are correct and have been reviewed, and corrected to the best of my ability. Some grammatical areas may persist related to the [employer] software * Lester Figueroa MD * Office: * . -[place] [facility] Work Phone: History of Present illness NarrativeAmber is here, new problem. She describes it as bilateral hip pain but it is actually lower back lumbosacral spinous area. She recently saw Dr. Murtaza Stratton's PA. He did full back workup, physical therapy was initiated. She has only [facility] one visit.[facility] [facility] Work Phone: History of Present illness NarrativeReviewed HEP to ensure proper form and understanding of all exercises. Added further stretching/ROMexercises for R shoulder, added further core strengthening and stabilization exercises. PT to continue to focus on pain relief, strengthening, and ROM/flexibility to facilitate return to prior level of activities as able. [facility] Work Phone: History of Present illness Narrative* Patient is here does have the rash that is going back to see a refill of medication. She is still not yet gotten her taste and smell all the way back. She is in therapy but has been having some bilateral hip discomfort more so on the outside. * REVIEW OF SYSTEMS: 12 systems negative except for those mentioned in the HPI. * PHYSICAL EXAMINATION: * Constitutional: The patient is alert, in no acute * distress. * Eyes: Extraocular movements are intact. * ENT: external ear canals patent * Neck: no JVD. * Heart: no JVD * Lungs: Normal respiration without stridor or nasal flaring * Psychiatric: Good judgment and insight. Normal affect and mood. * Skin: Irritated excoriated skin with some mild darkening on the outside of the left arm. MSK/neurologic: Cranial nerves II through XII grossly intact. There is pain in the IT band more so on the leftthan on the right. * Assessment: * per EMR * Plan: * On Mobic as well as discussed with the patient physical therapy and a foam roller. Patient is goingto therapy but has not been taking her medication. She did have Mobic but never took it from her orthopedic doctor. I did go ahead and refill this and did give the patient 220 mg Aleve to go ahead and take today before therapy. * This dictation was created using [employer] dictation and may contain errors [facility] Work Phone: History of Present illness NarrativeDecreased malalignment/ muscle tightness noted after manual. PT to continue to focus on pain relief, strengthening, and ROM/flexibility to facilitate return to prior level of activities as able. [facility] Work Phone: History of Present illness NarrativeThis is a patient we saw for low back pain and some left leg symptoms. It goes all the way down to the lower extremity. It has not gotten any better with medications or physical therapy. She denies any trauma. Denies bowel or bladder complaints. No changes in her bowel and bladder habits.[facility] Work Phone: History of Present illness NarrativeDecreased muscle tightness noted after manual. Pt reports sxs still in L hip after hip flexor stretch. Pelvis = before and after tx. PT to continue to focus on pain relief, strengthening, and ROM/flexibility to facilitate return to prior level of activities as able. [facility] Work Phone: History of Present illness Narrative* Patient is here with lower abdominal pain as well as back pain. She also has been bleeding and has been on medication to try and stop the bleeding via her [employer]. No vomiting some nauseousness. * REVIEW OF SYSTEMS: 12 systems negative except for those mentioned in the HPI. * PHYSICAL EXAMINATION: * Constitutional: The patient is alert, in no acute * distress. * Eyes: Extraocular movements are intact. Pupils are equal and reactive to light * ENT: TMs external clear * Neck: Supple without lymphadenopathy or JVD. * Heart: Regular rate and rhythm without murmur, click, gallop, or rub. * Lungs: Clear to auscultation bilaterally. No rales, rhonchi, or * wheezing. * Psychiatric: Good judgment and insight. Normal affect and mood. * Lymphatic: as noted above. * Skin: no rashes or lesions * Abdomen: Soft, slightly distended, diffuse discomfort over the lower quadrant especially the urinary bladder. Positive Merrill sign bilaterally * Assessment: * per EMR * Plan: * Reviewed UA with blood. 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 Due to feeling like she did have some mildchills we will go ahead and cover with Levaquin as well as also getting a CMP and also CT scan of the abdomen and pelvis. * This dictation was created using Hair[employer]obo dictation and may contain errors [facility] Work Phone: History of Present illness Narrative* Patient here for office hysteroscopy with possible polypectomy. The patient had an ultrasound performed for abnormal uterine bleeding and pain, the ultrasound showed heterogenous endometrium measuring 1.2 cm. * Patient is asking today why she gets UTIs after wearing underwear, she states that she is always been like this. She is never been evaluated by a urologist. No current UTI symptoms. Hx hematuria. [facility] Work Phone: History of Present illness Narrative* Patient here for office hysteroscopy with possible polypectomy. The patient had an ultrasound performed for abnormal uterine bleeding and pain, the ultrasound showed heterogenous endometrium measuring 1.2 cm. * Patient is asking today why she gets UTIs after wearing underwear, she states that she is always been like this. She is never been evaluated by a urologist. No current UTI symptoms. Hx hematuria. [facility] Work Phone: History of Present illness NarrativeThis is a patient we saw. She was having some bilateral hip issues going down the left leg. We wereconcerned for a radicular component. We ordered an MRI of the lumbar spine which was reviewed today. It was completely normal. Therefore, it is not coming from her back. She feels like her hip, both joints kind of pop in and out, kind of like her shoulder. No constant radiculopathy. No paresthesias. No fevers, chills, nausea, vomiting or night sweats. No bowel or bladder complaints.[facility] [place] Work Phone: History of Present illness Narrative* Patient here for office hysteroscopy with possible polypectomy. The patient had an ultrasound performed for abnormal uterine bleeding and pain, the ultrasound showed heterogenous endometrium measuring 1.2 cm. * Patient is asking today why she gets UTIs after wearing underwear, she states that she is always been like this. She is never been evaluated by a urologist. No current UTI symptoms. Hx hematuria. [facility] Work Phone: History of Present illness NarrativePatient here new problem bilateral hip, combination of trochanteric bursitis, pain over the IT band, and pain with a tight IT band. No prior surgeries.[facility] Work Phone: History of Present illness Narrative* 26 y/o F presents to outpatient physical therapy with reports of B hip pain d/t bilateral bursitis with hip impingement. The patient presents with the current impairments of pain, decreased range of motion, decreased strength, and impaired gait. These impairments currently limit their ability to ambulate, negotiate stairs, stand for extended periods of time, and sleep. Due to the limitations listed above, the patient is currently at a decreased functional level compared to baseline, and they would benefit from skilled physical therapy to improve mobility, pain levels, strength, and facilitatea safe and efficient return to functional baseline. Patient's prognosis for improvement with therapy is good at this time. * Interdisciplinary Team Communication: Physical Therapy . * Clinical Presentation: Stable and/or uncomplicated characteristics. * Level of Complexity: low * Problem List: activity limitations, ADLs/IADLs/self care skills, decreased functional level, flexibility, gait/locomotion, pain, participation restrictions, range of motion/joint mobility and strength. [facility] Work Phone: History of Present illness Narrative* Seeing seen today to discuss endometrial biopsy results. Did well after the hysteroscopic polypectomy office procedure. Only had some cramping for about an hour after the procedure. She has had no bleeding since, she is expecting her menses to be due again soon. * Is seeing URO for recurrent UTIs, has F/U cystoscopy scheduled with Dr. Garcia 10/16. [facility] Work Phone: History of Present illness Narrative* Patient is here for bilateral hip pain for a few months. She did see orthopedic doctors that have x-rays that showed bone spurs. It is worse in certain positions and sitting to standing. She was recommended to have injection which she did not want and she did not want oral steroids because it makesit very hard for her to sleep having her child and that makes life not very fine. She does take ibuprofen but prefers not to take medication if not possible. * REVIEW OF SYSTEMS: 12 systems negative except for those mentioned in the HPI. * PHYSICAL EXAMINATION: * Constitutional: The patient is alert, in no acute * distress. * Eyes: Extraocular movements are intact. * ENT: external ear canals patent * Neck: no JVD. * Heart: no JVD * Lungs: Normal respiration without stridor or nasal flaring * Psychiatric: Good judgment and insight. Normal affect and mood. * Skin: no rashes or lesions * Assessment: * per EMR * Plan: * I discussed foam rolling for the next 5 days once a day that the then take stress off. Also did go ahead and will use Mobic. We will also use Voltaren 3 times a day if not we will follow-up for injection. Did review orthopedic note and x-rays * This dictation was created using nprogresson dictation and may contain errors [facility] DO Work Phone: History of Present illness Narrative* Patient has undesired fertility and atraumatic first does not desire repeat. Discussed options for management including long-term reversible management currently did not feel comfortable with an IUD discussed safety profile efficacy referred for additional information * Temporarily would like to see if periods controlled would like to try patch contraception [facility] Work Phone: History of Present illness Narrative* Patient is here after having laparoscopic abdominal examination. They were looking for endometriosis was diagnosed with adenomyosis. * REVIEW OF SYSTEMS: 12 systems negative except for those mentioned in the HPI. * PHYSICAL EXAMINATION: * Constitutional: The patient is alert, in no acute * distress. * Eyes: Extraocular movements are intact. * ENT: external ear canals patent * Neck: no JVD. * Heart: no JVD * Lungs: Normal respiration without stridor or nasal flaring * Psychiatric: Good judgment and insight. Normal affect and mood. * Skin: C shaped incision underneath the umbilicus with some honey crusting * Assessment: * per EMR * Plan: * Go on Bactrim for 14 days follow-up with surgeon * This dictation was created using Dragon dictation and may contain errors [facility] DO Work Phone: History of Present illness Narrative* Patient is here to talk about her right shoulder. She has had worsening pain and has not really been able to tolerate physical therapy was recommended for her to come and get an injection * REVIEW OF SYSTEMS: 12 systems negative except for those mentioned in the HPI. * PHYSICAL EXAMINATION: * Constitutional: The patient is alert, in no acute * distress. * Eyes: Extraocular movements are intact. * ENT: external ear canals patent * Neck: no JVD. * Heart: no JVD * Lungs: Normal respiration without stridor or nasal flaring * Psychiatric: Good judgment and insight. Normal affect and mood. * Skin: no rashes or lesions * MSK/neurologic: Cranials 2 through 12 grossly intact. Pain in the supraspinatus of the right shoulder. Limited flexion secondary to pain. * Patient with oral consent for corticosteroid injection. Does state that she has a titanium button within the joint at some place. Acknowledges understanding of fever chills or inherent risks of injection even with cleaning and risk of infection. She wishes to continue. 40 mg Depo-Medrol [facility] number [id number] lot- [id number] expiration date 1 cc Marcaine 0.5% without epinephrine [facility] [id number] expiration date 03/2024 lot [id number] and 20mgKenalog [id number] lot [id number] 27-gauge 1 1/2 inch needle. Posterior inferior approach the right shoulder was utilized. The area is clean ed with alcohol anesthetized with ethyl chloride. Patient had immediate pain relief full range of motion no complications and a Band-Aid was placed. * Assessment: * per EMR * Plan: * Discussed follow-up with orthopedic surgery as well as continued physical therapy * This dictation was created using [employer] and may contain errors [facility] DO Work Phone: History of Present illness Narrative* Patient is here after cortisone shot. States that it lasted for about 2 weeks where she had no painhowever then her right shoulder started to get to the point where get weak and she almost dropped her son. She does not really know what else to do does not really want to have a full shoulder replacement. * REVIEW OF SYSTEMS: 12 systems negative except for those mentioned in the HPI. * PHYSICAL EXAMINATION: * Constitutional: The patient is alert, in no acute * distress. * Eyes: Extraocular movements are intact. * ENT: external ear canals patent * Neck: no JVD. * Heart: no JVD * Lungs: Normal respiration without stridor or nasal flaring * Psychiatric: Good judgment and insight. Normal affect and mood. * Skin: no rashes or lesions * Assessment: * per EMR * Plan: * OARRS reviewed appropriate. We will give tramadol. Did recommend second opinion downtown for whoever happens to operate on the [employer]. Also pain management and possibly a shoulder block but I am not fully aware for will be worth looking into especially given the patient's age. * This dictation was created using [employer] and may contain errors [facility] Work Phone: Hospital course Narrative No data available for this section [facility] Hospital Discharge instructions* Attachments The following attachments cannot be sent through Care Everywhere. * Abdominal Pain (Singaporean) documented in this encounterOhioHealthHospital Discharge instructions* Attachments The following attachments cannot be sent through Care Everywhere. * Abdominal Pain (Singaporean) * Gastritis (Singaporean) documented in this encounterOhioNewark HospitalHospital Discharge instructions* Instructions* Thomas Phillips MD - 12/11/2020 Please consult with your primary care physician for further care and recommendations After further thought at this point I do not believe antibiotics is going to help You may continue to take Benadryl as needed for itch documented in this encounterLaioNewark HospitalHospital Discharge instructions* Attachments The following attachments cannot be sent through Care Everywhere. * UTI (Urinary Tract Infection): Female (Singaporean) * Constipation (Singaporean) documented in this encounterSum[facility] Dis[facility]* Attachments The following attachments cannot be sent through Care Everywhere. * Neck Spasm ([place]apore[place]) documented in this encounterBOSTON STATE [facility]OSPITALPange[facility] Work Phone: Hospital Discharge instructions* Attachments The following attachments cannot be sent through Care Everywhere. * Vaginal Bleeding ([place]aporean) documented in this encounterBON [facility]HE[facility]ITAL[facility] Work Phone: Hospital Discharge instructions* Attachments The following attachments cannot be sent through Care Everywhere. * Urticaria ([place]aporean) [facility] Work Phone: Instructions* Name Dates Details Instructions not documented [facility] Work Phone: InstructionsNot on filedocumented in this encounter [facility] SystemProgress note No data available for this section [facility] Reason for referral (narrative)* Diagnostic Procedure Only (Routine) - Closed Specialty Diagnoses / Procedures Referred By Deanne t Referred To Contact XR IMAGING Diagnoses Pain in joint, multiple sites Procedures XR SACROILIAC JOINTS 2V AP PELVIS/FERGUESON RADIOLOGIC EXAMINATION SACROILIAC JNTS <3 VIEWS Cathy Moran MD [address] [place] [address] Xr Imaging Referral ID Status Reason Start Date Expiration Date V isits Requested Visits Authorized [id number] Closed Auto-Generate d Referral 03/09/2022 04/08/2023 1 1 * Diagnostic Procedure Only (Routine) - Closed Specialty Diagnoses / Procedures Referred By Contac t Referred To Contact XR IMAGING Diagnoses Pain in joint, multiple sites Procedures XR HAND GENERAL 3V PA/LAT/OBL BILATERAL RADEX HAND MINIMUM 3 VIEWS Cathy Moran MD [address] [place] [address] Xr Imaging Referral ID Status Reason Start Date Expiration Date V isits Requested Visits Authorized [id number] Closed Auto-Generate d Referral 03/09/2022 04/08/2023 1 1 * Diagnostic Procedure Only (Routine) - Closed Specialty Diagnoses / Procedures Referred By Contac t Referred To Contact XR IMAGING Diagnoses Pain in joint, multiple sites Procedures XR FOOT GENERAL 3V AP/LAT/OBL BILATERAL RADEX FOOT COMPLETE MINIMUM 3 VIEWS Cathy Moran MD [address] [place] [address] Xr Imaging Referral ID Status Reason Start Date Expiration Date V isits Requested Visits Authorized [id number] Closed Auto-Generate d Referral 03/09/2022 04/08/2023 1 1 [facility] for referral (narrative)* Diagnostic Procedure Only (Routine) - Closed Specialty Diagnoses / Procedures Referred By Contac t Referred To Contact XR IMAGING Diagnoses Pain in joint, multiple sites Procedures XR SACROILIAC JOINTS 2V AP PELVIS/FERGUESON RADIOLOGIC EXAMINATION SACROILIAC JNTS <3 VIEWS Cathy Moran MD [address] [place] [address] Xr Imaging Referral ID Status Reason Start Date Expiration Date V isits Requested Visits Authorized [id number] Closed Auto-Generate d Referral 03/09/2022 04/08/2023 1 1 * Diagnostic Procedure Only (Routine) - Closed Specialty Diagnoses / Procedures Referred By Contac t Referred To Contact XR IMAGING Diagnoses Pain in joint, multiple sites Procedures XR HAND GENERAL 3V PA/LAT/OBL BILATERAL RADEX HAND MINIMUM 3 VIEWS Cathy Moran MD [address] [place] [address] Xr Imaging Referral ID Status Reason Start Date Expiration Date V isits Requested Visits Authorized [id number] Closed Auto-Generate d Referral 03/09/2022 04/08/2023 1 1 * Diagnostic Procedure Only (Routine) - Closed Specialty Diagnoses / Procedures Referred By Contac t Referred To Contact XR IMAGING Diagnoses Pain in joint, multiple sites Procedures XR FOOT GENERAL 3V AP/LAT/OBL BILATERAL RADEX FOOT COMPLETE MINIMUM 3 VIEWS Cathy Moran MD [address] [place] [address] Xr Imaging Referral ID Status Reason Start Date Expiration Date V isits Requested Visits Authorized [id number] Closed Auto-Generate d Referral 03/09/2022 04/08/2023 1 1 [facility] for referral (narrative)* Consultation (Routine) - Authorized Specialty Diagnoses / Procedures Referred By Contac t Referred To Contact Behavioral Health Diagnoses [place] [address] [place] [address] Referral ID Status Reason Start Date Expiration Date Visits Requested Visits Authorized [id number] Authorized Specialty Services Required 3 04/18/2024 1 1 [facility] Work Phone: [employer] for referral (narrative)* Consultation (Routine) - Pending Review Specialty Diagnoses / Procedures Referred By Deanne orozco Referred To Contact Physical Therapy Diagnoses Labral tear of shoulder, degenerative, right Radu Fisher MD [address] [facility], [address] [place], [place] [id number] Referral ID Status Reason Start Date Expiration Date Visits Requested Visits Authorized [id number] Pending Review Specialty Services Required 07/17/2023 07/16/2024 1 1 [facility] Work Phone: reason for visit Narrative* Initial Evaluation . B hip pain. * Referred by: Radu Fisher MD [facility] Work Phone: Reason for visit Narrative* Diagnostic Procedure Only (Routine) - Closed Specialty Diagnoses / Procedures Referred By Deanne orozco Referred To Contact XR IMAGING Diagnoses Pain in joint, multiple sites Procedures XR SACROILIAC JOINTS 2V AP PELVIS/FERGUESON RADIOLOGIC EXAMINATION SACROILIAC JNTS <3 VIEWS Cathy Moran MD [address] [place] [address] Xr Imaging Referral ID Status Reason Start Date Expiration Date V isits Requested Visits Authorized [id number] Closed Auto-Generate d Referral 03/09/2022 04/08/2023 1 1 [facility] Narr[facility]* Imaging (Routine) - Authorized Specialty Diagnoses / Procedures Referred By Deanne orozco Referred To Contact Radiology Diagnoses Sciatica of left side Chronic pain of left knee Procedures XR knee left 1-[place] [address] [place] [address] Phone: tel: fax: Referral ID Status Reason Start Date Expiration Date Visits Requested Visits Authorized [id number] Authorized Perform Procedure 4 04/24/2025 1 1 [facility] Work Phone: Summary Purpose Family History No Family History Records FoundUnknown Family Member Name Dates Details Family history of diabetes laura tobin(V18.0, Z83.3) Comments:Other Status:Active Family history of hypertensi on(V17.49, Z82.49) Comments:Other Status:Active Family history of High daniel sterol(272.0, E78.00) Comments:Other Status:Active Family history of hyperchole sterolemia(V18.19, Z83.42) Comments:Other Status:Active Family history of myocardial infarction(V17.3, Z82.49) Comments:Other Status:Active Family history of Colon canc er(153.9, C18.9) Comments:Other Status:Active Grandmother Name Dates Details Family history of type 2 soraya betes mellitus(V18.0, Z83.3) Status:Active Grandparent Name Dates Details Family history of Colon canc er(153.9, C18.9) Status:Active Grandmother Name Dates Details Family history of Colon canc er(153.9, C18.9) Status:Active Mother Name Dates Details Family history of Allergies Status:Active Father Name Dates Details Family history of depression (V17.0, Z81.8) Status:Active Family history of HTN (hyper tension), benign(401.1, I10) Status:Active Unknown Family Member Name Dates Details Family history of diabetes laura tobin(V18.0, Z83.3) Comments:Other Status:Active Family history of hypertensi on(V17.49, Z82.49) Comments:Other Status:Active Family history of High daniel sterol(272.0, E78.00) Comments:Other Status:Active Family history of hyperchole sterolemia(V18.19, Z83.42) Comments:Other Status:Active Family history of myocardial infarction(V17.3, Z82.49) Comments:Other Status:Active Family history of Colon canc er(153.9, C18.9) Comments:Other Status:Active Grandmother Name Dates Details Family history of type 2 soraya betes mellitus(V18.0, Z83.3) Status:Active Grandparent Name Dates Details Family history of Colon canc er(153.9, C18.9) Status:Active Grandmother Name Dates Details Family history of Colon canc er(153.9, C18.9) Status:Active Mother Name Dates Details Family history of Allergies Status:Active Father Name Dates Details Family history of depression (V17.0, Z81.8) Status:Active Family history of HTN (hyper tension), benign(401.1, I10) Status:Active Unknown Family Member Name Dates Details Family history of diabetes m ellitus(V18.0, Z83.3) Comments:Other Status:Active Family history of hypertensi on(V17.49, Z82.49) Comments:Other Status:Active Family history of High daniel sterol(272.0, E78.00) Comments:Other Status:Active Family history of hyperchole sterolemia(V18.19, Z83.42) Comments:Other Status:Active Family history of myocardial infarction(V17.3, Z82.49) Comments:Other Status:Active Family history of Colon canc er(153.9, C18.9) Comments:Other Status:Active Grandmother Name Dates Details Family history of type 2 soraya betes mellitus(V18.0, Z83.3) Status:Active Grandparent Name Dates Details Family history of Colon canc er(153.9, C18.9) Status:Active Grandmother Name Dates Details Family history of Colon canc er(153.9, C18.9) Status:Active Mother Name Dates Details Family history of Allergies Status:Active Father Name Dates Details Family history of depression (V17.0, Z81.8) Status:Active Family history of HTN (hyper tension), benign(401.1, I10) Status:Active Unknown Family Member Name Dates Details Family history of diabetes m ellitus(V18.0, Z83.3) Comments:Other Status:Active Family history of hypertensi on(V17.49, Z82.49) Comments:Other Status:Active Family history of High daniel sterol(272.0, E78.00) Comments:Other Status:Active Family history of hyperchole sterolemia(V18.19, Z83.42) Comments:Other Status:Active Family history of myocardial infarction(V17.3, Z82.49) Comments:Other Status:Active Family history of Colon canc er(153.9, C18.9) Comments:Other Status:Active Grandmother Name Dates Details Family history of type 2 soraya betes mellitus(V18.0, Z83.3) Status:Active Grandparent Name Dates Details Family history of Colon canc er(153.9, C18.9) Status:Active Grandmother Name Dates Details Family history of Colon canc er(153.9, C18.9) Status:Active Mother Name Dates Details Family history of Allergies Status:Active Father Name Dates Details Family history of depression (V17.0, Z81.8) Status:Active Family history of HTN (hyper tension), benign(401.1, I10) Status:Active Unknown Family Member Name Dates Details Family history of diabetes m ellitus(V18.0, Z83.3) Comments:Other Status:Active Family history of hypertensi on(V17.49, Z82.49) Comments:Other Status:Active Family history of High daniel sterol(272.0, E78.00) Comments:Other Status:Active Family history of hyperchole sterolemia(V18.19, Z83.42) Comments:Other Status:Active Family history of myocardial infarction(V17.3, Z82.49) Comments:Other Status:Active Family history of Colon canc er(153.9, C18.9) Comments:Other Status:Active Grandmother Name Dates Details Family history of type 2 soraya betes mellitus(V18.0, Z83.3) Status:Active Grandparent Name Dates Details Family history of Colon canc er(153.9, C18.9) Status:Active Grandmother Name Dates Details Family history of Colon canc er(153.9, C18.9) Status:Active Mother Name Dates Details Family history of Allergies Status:Active Father Name Dates Details Family history of depression (V17.0, Z81.8) Status:Active Family history of HTN (hyper tension), benign(401.1, I10) Status:Active Unknown Family Member Name Dates Details Family history of diabetes m ellitus(V18.0, Z83.3) Comments:Other Status:Active Family history of hypertensi on(V17.49, Z82.49) Comments:Other Status:Active Family history of High daniel sterol(272.0, E78.00) Comments:Other Status:Active Family history of hyperchole sterolemia(V18.19, Z83.42) Comments:Other Status:Active Family history of myocardial infarction(V17.3, Z82.49) Comments:Other Status:Active Family history of Colon canc er(153.9, C18.9) Comments:Other Status:Active Grandmother Name Dates Details Family history of type 2 soraya betes mellitus(V18.0, Z83.3) Status:Active Grandparent Name Dates Details Family history of Colon canc er(153.9, C18.9) Status:Active Grandmother Name Dates Details Family history of Colon canc er(153.9, C18.9) Status:Active Mother Name Dates Details Family history of Allergies Status:Active Father Name Dates Details Family history of depression (V17.0, Z81.8) Status:Active Family history of HTN (hyper tension), benign(401.1, I10) Status:Active Unknown Family Member Name Dates Details Family history of diabetes m ellitus(V18.0, Z83.3) Comments:Other Status:Active Family history of hypertensi on(V17.49, Z82.49) Comments:Other Status:Active Family history of High dnaiel sterol(272.0, E78.00) Comments:Other Status:Active Family history of hyperchole sterolemia(V18.19, Z83.42) Comments:Other Status:Active Family history of myocardial infarction(V17.3, Z82.49) Comments:Other Status:Active Family history of Colon canc er(153.9, C18.9) Comments:Other Status:Active Grandmother Name Dates Details Family history of type 2 soraya betes mellitus(V18.0, Z83.3) Status:Active Grandparent Name Dates Details Family history of Colon canc er(153.9, C18.9) Status:Active Grandmother Name Dates Details Family history of Colon canc er(153.9, C18.9) Status:Active Mother Name Dates Details Family history of Allergies Status:Active Father Name Dates Details Family history of depression (V17.0, Z81.8) Status:Active Family history of HTN (hyper tension), benign(401.1, I10) Status:Active Unknown Family Member Name Dates Details Family history of diabetes m mahad(V18.0, Z83.3) Comments:Other Status:Active Family history of hypertensi on(V17.49, Z82.49) Comments:Other Status:Active Family history of High daniel sterol(272.0, E78.00) Comments:Other Status:Active Family history of hyperchole sterolemia(V18.19, Z83.42) Comments:Other Status:Active Family history of myocardial infarction(V17.3, Z82.49) Comments:Other Status:Active Family history of Colon canc er(153.9, C18.9) Comments:Other Status:Active Grandmother Name Dates Details Family history of type 2 soraya betes mellitus(V18.0, Z83.3) Status:Active Grandparent Name Dates Details Family history of Colon canc er(153.9, C18.9) Status:Active Grandmother Name Dates Details Family history of Colon canc er(153.9, C18.9) Status:Active Mother Name Dates Details Family history of Allergies Status:Active Father Name Dates Details Family history of depression (V17.0, Z81.8) Status:Active Family history of HTN (hyper tension), benign(401.1, I10) Status:Active Unknown Family Member Name Dates Details Family history of diabetes laura tobin(V18.0, Z83.3) Comments:Other Status:Active Family history of hypertensi on(V17.49, Z82.49) Comments:Other Status:Active Family history of High daniel sterol(272.0, E78.00) Comments:Other Status:Active Family history of hyperchole sterolemia(V18.19, Z83.42) Comments:Other Status:Active Family history of myocardial infarction(V17.3, Z82.49) Comments:Other Status:Active Family history of Colon canc er(153.9, C18.9) Comments:Other Status:Active Grandmother Name Dates Details Family history of type 2 soraya betes mellitus(V18.0, Z83.3) Status:Active Grandparent Name Dates Details Family history of Colon canc er(153.9, C18.9) Status:Active Grandmother Name Dates Details Family history of Colon canc er(153.9, C18.9) Status:Active Mother Name Dates Details Family history of Allergies Status:Active Father Name Dates Details Family history of depression (V17.0, Z81.8) Status:Active Family history of HTN (hyper tension), benign(401.1, I10) Status:Active Unknown Family Member Name Dates Details Allergies: Mother Status:Active Family history of diabetes m ellitus: Other(V18.0, Z83.3) Status:Active Family history of hypertensi on: Other(V17.49, Z82.49) Status:Active High cholesterol: Other Status:Active Family history of hyperchole sterolemia: Other(V18.19, Z83.42) Status:Active Family history of myocardial infarction: Other(V17.3, Z82.49) Status:Active Colon cancer: Other, Grandpa rent, Grandmother Status:Active Family history of depression : Father(V17.0, Z81.8) Status:Active HTN (hypertension), benign: Father Status:Active Family history of type 2 soraya betes mellitus: Maternal Grandmother(V18.0, Z83.3) Status:Active Unknown Family Member Name Dates Details Family history of diabetes m ellitus: Other(V18.0, Z83.3) Status:Active Family history of hypertensi on: Other(V17.49, Z82.49) Status:Active High cholesterol: Other Status:Active Family history of hyperchole sterolemia: Other(V18.19, Z83.42) Status:Active Family history of myocardial infarction: Other(V17.3, Z82.49) Status:Active Colon cancer: Other, Grandpa rent, Grandmother Status:Active Family history of type 2 soraya betes mellitus: Maternal Grandmother(V18.0, Z83.3) Status:Active HTN (hypertension), benign: Father Status:Active Family history of depression : Father(V17.0, Z81.8) Status:Active Allergies: Mother Status:Active Unknown Family Member Name Dates Details Allergies: Mother Status:Active Family history of diabetes m ellitus: Other(V18.0, Z83.3) Status:Active Family history of hypertensi on: Other(V17.49, Z82.49) Status:Active High cholesterol: Other Status:Active Family history of hyperchole sterolemia: Other(V18.19, Z83.42) Status:Active Family history of myocardial infarction: Other(V17.3, Z82.49) Status:Active Colon cancer: Other, Grandpa rent, Grandmother Status:Active Family history of depression : Father(V17.0, Z81.8) Status:Active HTN (hypertension), benign: Father Status:Active Family history of type 2 soraya betes mellitus: Maternal Grandmother(V18.0, Z83.3) Status:Active Unknown Family Member Name Dates Details Allergies: Mother Status:Active Family history of diabetes m ellitus: Other(V18.0, Z83.3) Status:Active Family history of hypertensi on: Other(V17.49, Z82.49) Status:Active High cholesterol: Other Status:Active Family history of hyperchole sterolemia: Other(V18.19, Z83.42) Status:Active Family history of myocardial infarction: Other(V17.3, Z82.49) Status:Active Colon cancer: Other, Grandpa rent, Grandmother Status:Active Family history of depression : Father(V17.0, Z81.8) Status:Active HTN (hypertension), benign: Father Status:Active Family history of type 2 soraya betes mellitus: Maternal Grandmother(V18.0, Z83.3) Status:Active Unknown Family Member Name Dates Details Allergies: Mother Status:Active Family history of diabetes m ellitus: Other(V18.0, Z83.3) Status:Active Family history of hypertensi on: Other(V17.49, Z82.49) Status:Active High cholesterol: Other Status:Active Family history of hyperchole sterolemia: Other(V18.19, Z83.42) Status:Active Family history of myocardial infarction: Other(V17.3, Z82.49) Status:Active Colon cancer: Other, Grandpa rent, Grandmother Status:Active Family history of depression : Father(V17.0, Z81.8) Status:Active HTN (hypertension), benign: Father Status:Active Family history of type 2 soraya betes mellitus: Maternal Grandmother(V18.0, Z83.3) Status:Active Unknown Family Member Name Dates Details Allergies: Mother Status:Active Family history of diabetes m ellitus: Other(V18.0, Z83.3) Status:Active Family history of hypertensi on: Other(V17.49, Z82.49) Status:Active High cholesterol: Other Status:Active Family history of hyperchole sterolemia: Other(V18.19, Z83.42) Status:Active Family history of myocardial infarction: Other(V17.3, Z82.49) Status:Active Colon cancer: Other, Grandpa rent, Grandmother Status:Active Family history of depression : Father(V17.0, Z81.8) Status:Active HTN (hypertension), benign: Father Status:Active Family history of type 2 soraya betes mellitus: Maternal Grandmother(V18.0, Z83.3) Status:Active Unknown Family Member Name Dates Details Family history of diabetes m ellitus: Other(V18.0, Z83.3) Status:Active Family history of hypertensi on: Other(V17.49, Z82.49) Status:Active High cholesterol: Other Status:Active Colon cancer: Other, Grandpa rent, Grandmother Status:Active Family history of depression : Father(V17.0, Z81.8) Status:Active HTN (hypertension), benign: Father Status:Active Family history of type 2 soraya betes mellitus: Maternal Grandmother(V18.0, Z83.3) Status:Active Family history of myocardial infarction: Other(V17.3, Z82.49) Status:Active Family history of hyperchole sterolemia: Other(V18.19, Z83.42) Status:Active Allergies: Mother Status:Active Unknown Family Member Name Dates Details Allergies: Mother Status:Active Family history of diabetes m ellitus: Other(V18.0, Z83.3) Status:Active Family history of hypertensi on: Other(V17.49, Z82.49) Status:Active High cholesterol: Other Status:Active Family history of hyperchole sterolemia: Other(V18.19, Z83.42) Status:Active Family history of myocardial infarction: Other(V17.3, Z82.49) Status:Active Colon cancer: Other, Grandpa rent, Grandmother Status:Active Family history of depression : Father(V17.0, Z81.8) Status:Active HTN (hypertension), benign: Father Status:Active Family history of type 2 soraya betes mellitus: Maternal Grandmother(V18.0, Z83.3) Status:Active Unknown Family Member Name Dates Details Family history of diabetes m ellitus: Other(V18.0, Z83.3) Status:Active Family history of hypertensi on: Other(V17.49, Z82.49) Status:Active High cholesterol: Other Status:Active Family history of depression : Father(V17.0, Z81.8) Status:Active HTN (hypertension), benign: Father Status:Active Family history of type 2 soraya betes mellitus: Maternal Grandmother(V18.0, Z83.3) Status:Active Colon cancer: Other, Grandpa rent, Grandmother Status:Active Family history of myocardial infarction: Other(V17.3, Z82.49) Status:Active Family history of hyperchole sterolemia: Other(V18.19, Z83.42) Status:Active Allergies: Mother Status:Active Unknown Family Member Name Dates Details Allergies: Mother Status:Active Family history of diabetes m ellitus: Other(V18.0, Z83.3) Status:Active Family history of hypertensi on: Other(V17.49, Z82.49) Status:Active High cholesterol: Other Status:Active Family history of hyperchole sterolemia: Other(V18.19, Z83.42) Status:Active Family history of myocardial infarction: Other(V17.3, Z82.49) Status:Active Colon cancer: Other, Grandpa rent, Grandmother Status:Active Family history of depression : Father(V17.0, Z81.8) Status:Active HTN (hypertension), benign: Father Status:Active Family history of type 2 soraya betes mellitus: Maternal Grandmother(V18.0, Z83.3) Status:Active Unknown Family Member Name Dates Details Allergies: Mother Status:Active Family history of diabetes m ellitus: Other(V18.0, Z83.3) Status:Active Family history of hypertensi on: Other(V17.49, Z82.49) Status:Active High cholesterol: Other Status:Active Family history of hyperchole sterolemia: Other(V18.19, Z83.42) Status:Active Family history of myocardial infarction: Other(V17.3, Z82.49) Status:Active Colon cancer: Other, Grandpa rent, Grandmother Status:Active Family history of depression : Father(V17.0, Z81.8) Status:Active HTN (hypertension), benign: Father Status:Active Family history of type 2 soraya betes mellitus: Maternal Grandmother(V18.0, Z83.3) Status:Active Unknown Family Member Name Dates Details Allergies: Mother Status:Active Family history of diabetes m ellitus: Other(V18.0, Z83.3) Status:Active Family history of hypertensi on: Other(V17.49, Z82.49) Status:Active High cholesterol: Other Status:Active Family history of hyperchole sterolemia: Other(V18.19, Z83.42) Status:Active Family history of myocardial infarction: Other(V17.3, Z82.49) Status:Active Colon cancer: Other, Grandpa rent, Grandmother Status:Active Family history of depression : Father(V17.0, Z81.8) Status:Active HTN (hypertension), benign: Father Status:Active Family history of type 2 soraya betes mellitus: Maternal Grandmother(V18.0, Z83.3) Status:Active Unknown Family Member Name Dates Details Colon cancer: Other, Grandpa rent, Grandmother Status:Active Family history of type 2 soraya betes mellitus: Maternal Grandmother(V18.0, Z83.3) Status:Active HTN (hypertension), benign: Father Status:Active Family history of depression : Father(V17.0, Z81.8) Status:Active Family history of myocardial infarction: Other(V17.3, Z82.49) Status:Active Family history of hyperchole sterolemia: Other(V18.19, Z83.42) Status:Active High cholesterol: Other Status:Active Family history of hypertensi on: Other(V17.49, Z82.49) Status:Active Family history of diabetes m ellitus: Other(V18.0, Z83.3) Status:Active Allergies: Mother Status:Active Unknown Family Member Name Dates Details Allergies: Mother Status:Active Family history of diabetes m ellitus: Other(V18.0, Z83.3) Status:Active Family history of hypertensi on: Other(V17.49, Z82.49) Status:Active High cholesterol: Other Status:Active Family history of hyperchole sterolemia: Other(V18.19, Z83.42) Status:Active Family history of myocardial infarction: Other(V17.3, Z82.49) Status:Active Colon cancer: Other, Grandpa rent, Grandmother Status:Active Family history of depression : Father(V17.0, Z81.8) Status:Active HTN (hypertension), benign: Father Status:Active Family history of type 2 soraya betes mellitus: Maternal Grandmother(V18.0, Z83.3) Status:Active Unknown Family Member Name Dates Details High cholesterol: Other Status:Active Family history of hypertensi on: Other(V17.49, Z82.49) Status:Active Family history of diabetes m ellitus: Other(V18.0, Z83.3) Status:Active Family history of type 2 soraya betes mellitus: Maternal Grandmother(V18.0, Z83.3) Status:Active HTN (hypertension), benign: Father Status:Active Family history of depression : Father(V17.0, Z81.8) Status:Active Colon cancer: Other, Grandpa rent, Grandmother Status:Active Family history of myocardial infarction: Other(V17.3, Z82.49) Status:Active Family history of hyperchole sterolemia: Other(V18.19, Z83.42) Status:Active Allergies: Mother Status:Active Unknown Family Member Name Dates Details Family history of diabetes m ellitus(V18.0, Z83.3) Comments:Other Status:Active Family history of hypertensi on(V17.49, Z82.49) Comments:Other Status:Active Family history of High daniel sterol(272.0, E78.00) Comments:Other Status:Active Family history of hyperchole sterolemia(V18.19, Z83.42) Comments:Other Status:Active Family history of myocardial infarction(V17.3, Z82.49) Comments:Other Status:Active Family history of Colon canc er(153.9, C18.9) Comments:Other Status:Active Grandmother Name Dates Details Family history of type 2 soraya betes mellitus(V18.0, Z83.3) Status:Active Grandparent Name Dates Details Family history of Colon canc er(153.9, C18.9) Status:Active Grandmother Name Dates Details Family history of Colon canc er(153.9, C18.9) Status:Active Mother Name Dates Details Family history of Allergies Status:Active Father Name Dates Details Family history of depression (V17.0, Z81.8) Status:Active Family history of HTN (hyper tension), benign(401.1, I10) Status:Active Unknown Family Member Name Dates Details Allergies: Mother Status:Active Family history of diabetes m ellitus: Other(V18.0, Z83.3) Status:Active Family history of hypertensi on: Other(V17.49, Z82.49) Status:Active High cholesterol: Other Status:Active Family history of hyperchole sterolemia: Other(V18.19, Z83.42) Status:Active Family history of myocardial infarction: Other(V17.3, Z82.49) Status:Active Colon cancer: Other, Grandpa rent, Grandmother Status:Active Family history of depression : Father(V17.0, Z81.8) Status:Active HTN (hypertension), benign: Father Status:Active Family history of type 2 soraya betes mellitus: Maternal Grandmother(V18.0, Z83.3) Status:Active Unknown Family Member Name Dates Details Family history of diabetes m ellitus: Other(V18.0, Z83.3) Status:Active Family history of hypertensi on: Other(V17.49, Z82.49) Status:Active High cholesterol: Other Status:Active Family history of hyperchole sterolemia: Other(V18.19, Z83.42) Status:Active Family history of myocardial infarction: Other(V17.3, Z82.49) Status:Active Colon cancer: Other, Grandpa rent, Grandmother Status:Active Family history of depression : Father(V17.0, Z81.8) Status:Active HTN (hypertension), benign: Father Status:Active Family history of type 2 soraya betes mellitus: Maternal Grandmother(V18.0, Z83.3) Status:Active Allergies: Mother Status:Active Unknown Family Member Name Dates Details Family history of diabetes m ellitus: Other(V18.0, Z83.3) Status:Active Family history of hypertensi on: Other(V17.49, Z82.49) Status:Active High cholesterol: Other Status:Active Family history of type 2 soraya betes mellitus: Maternal Grandmother(V18.0, Z83.3) Status:Active HTN (hypertension), benign: Father Status:Active Family history of depression : Father(V17.0, Z81.8) Status:Active Colon cancer: Other, Grandpa rent, Grandmother Status:Active Family history of myocardial infarction: Other(V17.3, Z82.49) Status:Active Family history of hyperchole sterolemia: Other(V18.19, Z83.42) Status:Active Allergies: Mother Status:Active Unknown Family Member Name Dates Details Family history of depression : Father(V17.0, Z81.8) Status:Active HTN (hypertension), benign: Father Status:Active Family history of type 2 soraya betes mellitus: Maternal Grandmother(V18.0, Z83.3) Status:Active Colon cancer: Other, Grandpa rent, Grandmother Status:Active Family history of myocardial infarction: Other(V17.3, Z82.49) Status:Active Family history of hyperchole sterolemia: Other(V18.19, Z83.42) Status:Active High cholesterol: Other Status:Active Family history of hypertensi on: Other(V17.49, Z82.49) Status:Active Family history of diabetes m ellitus: Other(V18.0, Z83.3) Status:Active Allergies: Mother Status:Active Unknown Family Member Name Dates Details Allergies: Mother Status:Active Family history of diabetes m ellitus: Other(V18.0, Z83.3) Status:Active Family history of hypertensi on: Other(V17.49, Z82.49) Status:Active High cholesterol: Other Status:Active Family history of hyperchole sterolemia: Other(V18.19, Z83.42) Status:Active Family history of myocardial infarction: Other(V17.3, Z82.49) Status:Active Colon cancer: Other, Grandpa rent, Grandmother Status:Active Family history of depression : Father(V17.0, Z81.8) Status:Active HTN (hypertension), benign: Father Status:Active Family history of type 2 soraya betes mellitus: Maternal Grandmother(V18.0, Z83.3) Status:Active Unknown Family Member Name Dates Details Family history of diabetes m ellitus: Other(V18.0, Z83.3) Status:Active Family history of hypertensi on: Other(V17.49, Z82.49) Status:Active High cholesterol: Other Status:Active Colon cancer: Other, Grandpa rent, Grandmother Status:Active Family history of type 2 soraya betes mellitus: Maternal Grandmother(V18.0, Z83.3) Status:Active HTN (hypertension), benign: Father Status:Active Family history of depression : Father(V17.0, Z81.8) Status:Active Family history of myocardial infarction: Other(V17.3, Z82.49) Status:Active Family history of hyperchole sterolemia: Other(V18.19, Z83.42) Status:Active Allergies: Mother Status:Active Unknown Family Member Name Dates Details Allergies: Mother Status:Active Family history of type 2 soraya betes mellitus: Maternal Grandmother(V18.0, Z83.3) Status:Active HTN (hypertension), benign: Father Status:Active Family history of depression : Father(V17.0, Z81.8) Status:Active Colon cancer: Other, Grandpa rent, Grandmother Status:Active Family history of myocardial infarction: Other(V17.3, Z82.49) Status:Active Family history of hyperchole sterolemia: Other(V18.19, Z83.42) Status:Active High cholesterol: Other Status:Active Family history of hypertensi on: Other(V17.49, Z82.49) Status:Active Family history of diabetes m ellitus: Other(V18.0, Z83.3) Status:Active Unknown Family Member Name Dates Details Family history of type 2 soraya betes mellitus: Maternal Grandmother(V18.0, Z83.3) Status:Active HTN (hypertension), benign: Father Status:Active Family history of depression : Father(V17.0, Z81.8) Status:Active Colon cancer: Other, Grandpa rent, Grandmother Status:Active Family history of myocardial infarction: Other(V17.3, Z82.49) Status:Active Family history of hyperchole sterolemia: Other(V18.19, Z83.42) Status:Active High cholesterol: Other Status:Active Family history of hypertensi on: Other(V17.49, Z82.49) Status:Active Family history of diabetes m ellitus: Other(V18.0, Z83.3) Status:Active Allergies: Mother Status:Active Unknown Family Member Name Dates Details Allergies: Mother Status:Active Family history of diabetes m ellitus: Other(V18.0, Z83.3) Status:Active Family history of hypertensi on: Other(V17.49, Z82.49) Status:Active High cholesterol: Other Status:Active Family history of hyperchole sterolemia: Other(V18.19, Z83.42) Status:Active Family history of myocardial infarction: Other(V17.3, Z82.49) Status:Active Colon cancer: Other, Grandpa rent, Grandmother Status:Active Family history of depression : Father(V17.0, Z81.8) Status:Active HTN (hypertension), benign: Father Status:Active Family history of type 2 soraya betes mellitus: Maternal Grandmother(V18.0, Z83.3) Status:Active Unknown Family Member Name Dates Details Family history of type 2 soraya betes mellitus: Maternal Grandmother(V18.0, Z83.3) Status:Active HTN (hypertension), benign: Father Status:Active Family history of depression : Father(V17.0, Z81.8) Status:Active Colon cancer: Other, Grandpa rent, Grandmother Status:Active Family history of myocardial infarction: Other(V17.3, Z82.49) Status:Active Family history of hyperchole sterolemia: Other(V18.19, Z83.42) Status:Active High cholesterol: Other Status:Active Family history of hypertensi on: Other(V17.49, Z82.49) Status:Active Family history of diabetes m ellitus: Other(V18.0, Z83.3) Status:Active Allergies: Mother Status:Active Unknown Family Member Name Dates Details Family history of diabetes m ellitus: Other(V18.0, Z83.3) Status:Active Family history of hypertensi on: Other(V17.49, Z82.49) Status:Active High cholesterol: Other Status:Active Family history of hyperchole sterolemia: Other(V18.19, Z83.42) Status:Active Family history of myocardial infarction: Other(V17.3, Z82.49) Status:Active Colon cancer: Other, Grandpa rent, Grandmother Status:Active Family history of type 2 soraya betes mellitus: Maternal Grandmother(V18.0, Z83.3) Status:Active HTN (hypertension), benign: Father Status:Active Family history of depression : Father(V17.0, Z81.8) Status:Active Allergies: Mother Status:Active Unknown Family Member Name Dates Details Allergies: Mother Status:Active Family history of diabetes m ellitus: Other(V18.0, Z83.3) Status:Active Family history of hypertensi on: Other(V17.49, Z82.49) Status:Active High cholesterol: Other Status:Active Family history of hyperchole sterolemia: Other(V18.19, Z83.42) Status:Active Family history of myocardial infarction: Other(V17.3, Z82.49) Status:Active Colon cancer: Other, Grandpa rent, Grandmother Status:Active Family history of depression : Father(V17.0, Z81.8) Status:Active HTN (hypertension), benign: Father Status:Active Family history of type 2 soraya betes mellitus: Maternal Grandmother(V18.0, Z83.3) Status:Active Unknown Family Member Name Dates Details Allergies: Mother Status:Active Family history of diabetes m ellitus: Other(V18.0, Z83.3) Status:Active Family history of hypertensi on: Other(V17.49, Z82.49) Status:Active High cholesterol: Other Status:Active Family history of hyperchole sterolemia: Other(V18.19, Z83.42) Status:Active Family history of myocardial infarction: Other(V17.3, Z82.49) Status:Active Colon cancer: Other, Grandpa rent, Grandmother Status:Active Family history of depression : Father(V17.0, Z81.8) Status:Active HTN (hypertension), benign: Father Status:Active Family history of type 2 soraya betes mellitus: Maternal Grandmother(V18.0, Z83.3) Status:Active Unknown Family Member Name Dates Details Allergies: Mother Status:Active Family history of diabetes m ellitus: Other(V18.0, Z83.3) Status:Active Family history of hypertensi on: Other(V17.49, Z82.49) Status:Active High cholesterol: Other Status:Active Family history of hyperchole sterolemia: Other(V18.19, Z83.42) Status:Active Family history of myocardial infarction: Other(V17.3, Z82.49) Status:Active Colon cancer: Other, Grandpa rent, Grandmother Status:Active Family history of depression : Father(V17.0, Z81.8) Status:Active HTN (hypertension), benign: Father Status:Active Family history of type 2 soraya betes mellitus: Maternal Grandmother(V18.0, Z83.3) Status:Active Unknown Family Member Name Dates Details Allergies: Mother Status:Active Family history of diabetes m ellitus: Other(V18.0, Z83.3) Status:Active Family history of hypertensi on: Other(V17.49, Z82.49) Status:Active High cholesterol: Other Status:Active Family history of hyperchole sterolemia: Other(V18.19, Z83.42) Status:Active Family history of myocardial infarction: Other(V17.3, Z82.49) Status:Active Colon cancer: Other, Grandpa rent, Grandmother Status:Active Family history of depression : Father(V17.0, Z81.8) Status:Active HTN (hypertension), benign: Father Status:Active Family history of type 2 soraya betes mellitus: Maternal Grandmother(V18.0, Z83.3) Status:Active Unknown Family Member Name Dates Details Allergies: Mother Status:Active Family history of diabetes m ellitus: Other(V18.0, Z83.3) Status:Active Family history of hypertensi on: Other(V17.49, Z82.49) Status:Active High cholesterol: Other Status:Active Family history of hyperchole sterolemia: Other(V18.19, Z83.42) Status:Active Family history of myocardial infarction: Other(V17.3, Z82.49) Status:Active Colon cancer: Other, Grandpa rent, Grandmother Status:Active Family history of depression : Father(V17.0, Z81.8) Status:Active HTN (hypertension), benign: Father Status:Active Family history of type 2 soraya betes mellitus: Maternal Grandmother(V18.0, Z83.3) Status:Active Unknown Family Member Name Dates Details Allergies: Mother Status:Active Family history of diabetes m ellitus: Other(V18.0, Z83.3) Status:Active Family history of hypertensi on: Other(V17.49, Z82.49) Status:Active High cholesterol: Other Status:Active Family history of hyperchole sterolemia: Other(V18.19, Z83.42) Status:Active Family history of myocardial infarction: Other(V17.3, Z82.49) Status:Active Colon cancer: Other, Grandpa rent, Grandmother Status:Active Family history of depression : Father(V17.0, Z81.8) Status:Active HTN (hypertension), benign: Father Status:Active Family history of type 2 soraya betes mellitus: Maternal Grandmother(V18.0, Z83.3) Status:Active Unknown Family Member Name Dates Details Allergies: Mother Status:Active Family history of diabetes m ellitus: Other(V18.0, Z83.3) Status:Active Family history of hypertensi on: Other(V17.49, Z82.49) Status:Active High cholesterol: Other Status:Active Family history of hyperchole sterolemia: Other(V18.19, Z83.42) Status:Active Family history of myocardial infarction: Other(V17.3, Z82.49) Status:Active Colon cancer: Other, Grandpa rent, Grandmother Status:Active Family history of depression : Father(V17.0, Z81.8) Status:Active HTN (hypertension), benign: Father Status:Active Family history of type 2 soraya betes mellitus: Maternal Grandmother(V18.0, Z83.3) Status:Active Unknown Family Member Name Dates Details Allergies: Mother Status:Active Family history of diabetes m ellitus: Other(V18.0, Z83.3) Status:Active Family history of hypertensi on: Other(V17.49, Z82.49) Status:Active High cholesterol: Other Status:Active Family history of hyperchole sterolemia: Other(V18.19, Z83.42) Status:Active Family history of myocardial infarction: Other(V17.3, Z82.49) Status:Active Colon cancer: Other, Grandpa rent, Grandmother Status:Active Family history of depression : Father(V17.0, Z81.8) Status:Active HTN (hypertension), benign: Father Status:Active Family history of type 2 soraya betes mellitus: Maternal Grandmother(V18.0, Z83.3) Status:Active Unknown Family Member Name Dates Details Allergies: Mother Status:Active Family history of diabetes m ellitus: Other(V18.0, Z83.3) Status:Active Family history of hypertensi on: Other(V17.49, Z82.49) Status:Active High cholesterol: Other Status:Active Family history of hyperchole sterolemia: Other(V18.19, Z83.42) Status:Active Family history of myocardial infarction: Other(V17.3, Z82.49) Status:Active Colon cancer: Other, Grandpa rent, Grandmother Status:Active Family history of depression : Father(V17.0, Z81.8) Status:Active HTN (hypertension), benign: Father Status:Active Family history of type 2 soraya betes mellitus: Maternal Grandmother(V18.0, Z83.3) Status:Active Unknown Family Member Name Dates Details Allergies: Mother Status:Active Family history of diabetes m ellitus: Other(V18.0, Z83.3) Status:Active Family history of hypertensi on: Other(V17.49, Z82.49) Status:Active High cholesterol: Other Status:Active Family history of hyperchole sterolemia: Other(V18.19, Z83.42) Status:Active Family history of myocardial infarction: Other(V17.3, Z82.49) Status:Active Colon cancer: Other, Grandpa rent, Grandmother Status:Active Family history of depression : Father(V17.0, Z81.8) Status:Active HTN (hypertension), benign: Father Status:Active Family history of type 2 soraya betes mellitus: Maternal Grandmother(V18.0, Z83.3) Status:Active Unknown Family Member Name Dates Details Allergies: Mother Status:Active Family history of diabetes m ellitus: Other(V18.0, Z83.3) Status:Active Family history of hypertensi on: Other(V17.49, Z82.49) Status:Active High cholesterol: Other Status:Active Family history of hyperchole sterolemia: Other(V18.19, Z83.42) Status:Active Family history of myocardial infarction: Other(V17.3, Z82.49) Status:Active Colon cancer: Other, Grandpa rent, Grandmother Status:Active Family history of depression : Father(V17.0, Z81.8) Status:Active HTN (hypertension), benign: Father Status:Active Family history of type 2 soraya betes mellitus: Maternal Grandmother(V18.0, Z83.3) Status:Active Unknown Family Member Name Dates Details Allergies: Mother Status:Active Family history of diabetes m ellitus: Other(V18.0, Z83.3) Status:Active Family history of hypertensi on: Other(V17.49, Z82.49) Status:Active High cholesterol: Other Status:Active Family history of hyperchole sterolemia: Other(V18.19, Z83.42) Status:Active Family history of myocardial infarction: Other(V17.3, Z82.49) Status:Active Colon cancer: Other, Grandpa rent, Grandmother Status:Active Family history of depression : Father(V17.0, Z81.8) Status:Active HTN (hypertension), benign: Father Status:Active Family history of type 2 soraya betes mellitus: Maternal Grandmother(V18.0, Z83.3) Status:Active Unknown Family Member Name Dates Details Allergies: Mother Status:Active Family history of diabetes m ellitus: Other(V18.0, Z83.3) Status:Active Family history of hypertensi on: Other(V17.49, Z82.49) Status:Active High cholesterol: Other Status:Active Family history of hyperchole sterolemia: Other(V18.19, Z83.42) Status:Active Family history of myocardial infarction: Other(V17.3, Z82.49) Status:Active Colon cancer: Other, Grandpa rent, Grandmother Status:Active Family history of depression : Father(V17.0, Z81.8) Status:Active HTN (hypertension), benign: Father Status:Active Family history of type 2 soraya betes mellitus: Maternal Grandmother(V18.0, Z83.3) Status:Active Unknown Family Member Name Dates Details Allergies: Mother Status:Active Family history of diabetes m ellitus: Other(V18.0, Z83.3) Status:Active Family history of hypertensi on: Other(V17.49, Z82.49) Status:Active High cholesterol: Other Status:Active Family history of hyperchole sterolemia: Other(V18.19, Z83.42) Status:Active Family history of myocardial infarction: Other(V17.3, Z82.49) Status:Active Colon cancer: Other, Grandpa rent, Grandmother Status:Active Family history of depression : Father(V17.0, Z81.8) Status:Active HTN (hypertension), benign: Father Status:Active Family history of type 2 soraya betes mellitus: Maternal Grandmother(V18.0, Z83.3) Status:Active Unknown Family Member Name Dates Details Allergies: Mother Status:Active Family history of depression : Father(V17.0, Z81.8) Status:Active HTN (hypertension), benign: Father Status:Active Family history of type 2 soraya betes mellitus: Maternal Grandmother(V18.0, Z83.3) Status:Active Family history of myocardial infarction: Maternal Grandfather, Other(V17.3, Z82.49) Status:Active Colon cancer: Maternal Grand father, Other Status:Active Endometrial adenocarcinoma: Aunt Status:Active Family history of leukemia: Maternal Grandmother(V16.6, Z80.6) Status:Active Unknown Family Member Name Dates Details Allergies: Mother Status:Active Family history of depression : Father(V17.0, Z81.8) Status:Active HTN (hypertension), benign: Father Status:Active Family history of type 2 soraya betes mellitus: Maternal Grandmother(V18.0, Z83.3) Status:Active Family history of myocardial infarction: Maternal Grandfather, Other(V17.3, Z82.49) Status:Active Colon cancer: Maternal Grand father, Other Status:Active Endometrial adenocarcinoma: Aunt Status:Active Family history of leukemia: Maternal Grandmother(V16.6, Z80.6) Status:Active Unknown Family Member Name Dates Details Allergies: Mother Status:Active Family history of depression : Father(V17.0, Z81.8) Status:Active HTN (hypertension), benign: Father Status:Active Family history of type 2 soraya betes mellitus: Maternal Grandmother(V18.0, Z83.3) Status:Active Family history of myocardial infarction: Maternal Grandfather, Other(V17.3, Z82.49) Status:Active Colon cancer: Maternal Grand father, Other Status:Active Endometrial adenocarcinoma: Aunt Status:Active Family history of leukemia: Maternal Grandmother(V16.6, Z80.6) Status:Active Unknown Family Member Name Dates Details Allergies: Mother Status:Active Family history of depression : Father(V17.0, Z81.8) Status:Active HTN (hypertension), benign: Father Status:Active Family history of type 2 soraya betes mellitus: Maternal Grandmother(V18.0, Z83.3) Status:Active Family history of myocardial infarction: Maternal Grandfather, Other(V17.3, Z82.49) Status:Active Colon cancer: Maternal Grand father, Other Status:Active Endometrial adenocarcinoma: Aunt Status:Active Family history of leukemia: Maternal Grandmother(V16.6, Z80.6) Status:Active Unknown Family Member Name Dates Details Allergies: Mother Status:Active Family history of depression : Father(V17.0, Z81.8) Status:Active HTN (hypertension), benign: Father Status:Active Family history of type 2 soraya betes mellitus: Maternal Grandmother(V18.0, Z83.3) Status:Active Family history of myocardial infarction: Maternal Grandfather, Other(V17.3, Z82.49) Status:Active Colon cancer: Maternal Grand father, Other Status:Active Endometrial adenocarcinoma: Aunt Status:Active Family history of leukemia: Maternal Grandmother(V16.6, Z80.6) Status:Active Unknown Family Member Name Dates Details Allergies: Mother Status:Active Family history of depression : Father(V17.0, Z81.8) Status:Active HTN (hypertension), benign: Father Status:Active Family history of type 2 soraya betes mellitus: Maternal Grandmother(V18.0, Z83.3) Status:Active Family history of myocardial infarction: Maternal Grandfather, Other(V17.3, Z82.49) Status:Active Colon cancer: Maternal Grand father, Other Status:Active Endometrial adenocarcinoma: Aunt Status:Active Family history of leukemia: Maternal Grandmother(V16.6, Z80.6) Status:Active Unknown Family Member Name Dates Details Allergies: Mother Status:Active Family history of depression : Father(V17.0, Z81.8) Status:Active HTN (hypertension), benign: Father Status:Active Family history of type 2 soraya betes mellitus: Maternal Grandmother(V18.0, Z83.3) Status:Active Family history of myocardial infarction: Maternal Grandfather, Other(V17.3, Z82.49) Status:Active Colon cancer: Maternal Grand father, Other Status:Active Endometrial adenocarcinoma: Aunt Status:Active Family history of leukemia: Maternal Grandmother(V16.6, Z80.6) Status:Active Unknown Family Member Name Dates Details Allergies: Mother Status:Active Family history of depression : Father(V17.0, Z81.8) Status:Active HTN (hypertension), benign: Father Status:Active Family history of type 2 soraya betes mellitus: Maternal Grandmother(V18.0, Z83.3) Status:Active Family history of myocardial infarction: Maternal Grandfather, Other(V17.3, Z82.49) Status:Active Colon cancer: Maternal Grand father, Other Status:Active Endometrial adenocarcinoma: Aunt Status:Active Family history of leukemia: Maternal Grandmother(V16.6, Z80.6) Status:Active Unknown Family Member Name Dates Details Allergies: Mother Status:Active Family history of depression : Father(V17.0, Z81.8) Status:Active HTN (hypertension), benign: Father Status:Active Family history of type 2 soraya betes mellitus: Maternal Grandmother(V18.0, Z83.3) Status:Active Family history of myocardial infarction: Maternal Grandfather, Other(V17.3, Z82.49) Status:Active Colon cancer: Maternal Grand father, Other Status:Active Family history of leukemia: Maternal Grandmother(V16.6, Z80.6) Status:Active Endometrial adenocarcinoma: Aunt Status:Active Unknown Family Member Name Dates Details Allergies: Mother Status:Active Family history of depression : Father(V17.0, Z81.8) Status:Active HTN (hypertension), benign: Father Status:Active Family history of type 2 soraya betes mellitus: Maternal Grandmother(V18.0, Z83.3) Status:Active Family history of myocardial infarction: Maternal Grandfather, Other(V17.3, Z82.49) Status:Active Colon cancer: Maternal Grand father, Other Status:Active Endometrial adenocarcinoma: Aunt Status:Active Family history of leukemia: Maternal Grandmother(V16.6, Z80.6) Status:Active Unknown Family Member Name Dates Details Allergies: Mother Status:Active Family history of depression : Father(V17.0, Z81.8) Status:Active HTN (hypertension), benign: Father Status:Active Family history of type 2 soraya betes mellitus: Maternal Grandmother(V18.0, Z83.3) Status:Active Family history of myocardial infarction: Maternal Grandfather, Other(V17.3, Z82.49) Status:Active Colon cancer: Maternal Grand father, Other Status:Active Endometrial adenocarcinoma: Aunt Status:Active Family history of leukemia: Maternal Grandmother(V16.6, Z80.6) Status:Active Unknown Family Member Name Dates Details Allergies: Mother Status:Active Family history of depression : Father(V17.0, Z81.8) Status:Active HTN (hypertension), benign: Father Status:Active Family history of type 2 soraya betes mellitus: Maternal Grandmother(V18.0, Z83.3) Status:Active Family history of myocardial infarction: Maternal Grandfather, Other(V17.3, Z82.49) Status:Active Colon cancer: Maternal Grand father, Other Status:Active Endometrial adenocarcinoma: Aunt Status:Active Family history of leukemia: Maternal Grandmother(V16.6, Z80.6) Status:Active Unknown Family Member Name Dates Details Allergies: Mother Status:Active Family history of depression : Father(V17.0, Z81.8) Status:Active HTN (hypertension), benign: Father Status:Active Family history of type 2 soraya betes mellitus: Maternal Grandmother(V18.0, Z83.3) Status:Active Family history of myocardial infarction: Maternal Grandfather, Other(V17.3, Z82.49) Status:Active Colon cancer: Maternal Grand father, Other Status:Active Endometrial adenocarcinoma: Aunt Status:Active Family history of leukemia: Maternal Grandmother(V16.6, Z80.6) Status:Active Unknown Family Member Name Dates Details Allergies: Mother Status:Active Family history of depression : Father(V17.0, Z81.8) Status:Active HTN (hypertension), benign: Father Status:Active Family history of type 2 soraya betes mellitus: Maternal Grandmother(V18.0, Z83.3) Status:Active Family history of myocardial infarction: Maternal Grandfather, Other(V17.3, Z82.49) Status:Active Colon cancer: Maternal Grand father, Other Status:Active Endometrial adenocarcinoma: Aunt Status:Active Family history of leukemia: Maternal Grandmother(V16.6, Z80.6) Status:Active Unknown Family Member Name Dates Details Allergies: Mother Status:Active Family history of depression : Father(V17.0, Z81.8) Status:Active HTN (hypertension), benign: Father Status:Active Family history of type 2 soraya betes mellitus: Maternal Grandmother(V18.0, Z83.3) Status:Active Family history of myocardial infarction: Maternal Grandfather, Other(V17.3, Z82.49) Status:Active Colon cancer: Maternal Grand father, Other Status:Active Endometrial adenocarcinoma: Aunt Status:Active Family history of leukemia: Maternal Grandmother(V16.6, Z80.6) Status:Active Unknown Family Member Name Dates Details Allergies: Mother Status:Active Family history of depression : Father(V17.0, Z81.8) Status:Active HTN (hypertension), benign: Father Status:Active Family history of type 2 soraya betes mellitus: Maternal Grandmother(V18.0, Z83.3) Status:Active Family history of myocardial infarction: Maternal Grandfather, Other(V17.3, Z82.49) Status:Active Colon cancer: Maternal Grand father, Other Status:Active Endometrial adenocarcinoma: Aunt Status:Active Family history of leukemia: Maternal Grandmother(V16.6, Z80.6) Status:Active Unknown Family Member Name Dates Details Allergies: Mother Status:Active Family history of depression : Father(V17.0, Z81.8) Status:Active HTN (hypertension), benign: Father Status:Active Family history of type 2 soraya betes mellitus: Maternal Grandmother(V18.0, Z83.3) Status:Active Family history of myocardial infarction: Maternal Grandfather, Other(V17.3, Z82.49) Status:Active Colon cancer: Maternal Grand father, Other Status:Active Endometrial adenocarcinoma: Aunt Status:Active Family history of leukemia: Maternal Grandmother(V16.6, Z80.6) Status:Active Unknown Family Member Name Dates Details Allergies: Mother Status:Active Family history of depression : Father(V17.0, Z81.8) Status:Active HTN (hypertension), benign: Father Status:Active Family history of type 2 soraya betes mellitus: Maternal Grandmother(V18.0, Z83.3) Status:Active Family history of myocardial infarction: Maternal Grandfather, Other(V17.3, Z82.49) Status:Active Colon cancer: Maternal Grand father, Other Status:Active Endometrial adenocarcinoma: Aunt Status:Active Family history of leukemia: Maternal Grandmother(V16.6, Z80.6) Status:Active Unknown Family Member Name Dates Details Allergies: Mother Status:Active Family history of depression : Father(V17.0, Z81.8) Status:Active HTN (hypertension), benign: Father Status:Active Family history of type 2 soraya betes mellitus: Maternal Grandmother(V18.0, Z83.3) Status:Active Family history of myocardial infarction: Maternal Grandfather, Other(V17.3, Z82.49) Status:Active Colon cancer: Maternal Grand father, Other Status:Active Endometrial adenocarcinoma: Aunt Status:Active Family history of leukemia: Maternal Grandmother(V16.6, Z80.6) Status:Active Unknown Family Member Name Dates Details Allergies: Mother Status:Active Family history of depression : Father(V17.0, Z81.8) Status:Active HTN (hypertension), benign: Father Status:Active Family history of type 2 soraya betes mellitus: Maternal Grandmother(V18.0, Z83.3) Status:Active Family history of myocardial infarction: Maternal Grandfather, Other(V17.3, Z82.49) Status:Active Colon cancer: Maternal Grand father, Other Status:Active Endometrial adenocarcinoma: Aunt Status:Active Family history of leukemia: Maternal Grandmother(V16.6, Z80.6) Status:Active Unknown Family Member Name Dates Details Allergies: Mother Status:Active Family history of depression : Father(V17.0, Z81.8) Status:Active HTN (hypertension), benign: Father Status:Active Family history of type 2 soraya betes mellitus: Maternal Grandmother(V18.0, Z83.3) Status:Active Family history of myocardial infarction: Maternal Grandfather, Other(V17.3, Z82.49) Status:Active Colon cancer: Maternal Grand father, Other Status:Active Endometrial adenocarcinoma: Aunt Status:Active Family history of leukemia: Maternal Grandmother(V16.6, Z80.6) Status:Active Unknown Family Member Name Dates Details Family history of leukemia: Maternal Grandmother(V16.6, Z80.6) Status:Active Endometrial adenocarcinoma: Aunt Status:Active Family history of type 2 soraya betes mellitus: Maternal Grandmother(V18.0, Z83.3) Status:Active HTN (hypertension), benign: Father Status:Active Family history of depression : Father(V17.0, Z81.8) Status:Active Allergies: Mother Status:Active Family history of myocardial infarction: Maternal Grandfather, Other(V17.3, Z82.49) Status:Active Colon cancer: Maternal Grand father, Other Status:Active Unknown Family Member Name Dates Details Allergies: Mother Status:Active Family history of depression : Father(V17.0, Z81.8) Status:Active HTN (hypertension), benign: Father Status:Active Family history of type 2 soraya betes mellitus: Maternal Grandmother(V18.0, Z83.3) Status:Active Family history of myocardial infarction: Maternal Grandfather, Other(V17.3, Z82.49) Status:Active Colon cancer: Maternal Grand father, Other Status:Active Family history of leukemia: Maternal Grandmother(V16.6, Z80.6) Status:Active Endometrial adenocarcinoma: Aunt Status:Active Unknown Family Member Name Dates Details Allergies: Mother Status:Active Family history of depression : Father(V17.0, Z81.8) Status:Active HTN (hypertension), benign: Father Status:Active Family history of type 2 soraya betes mellitus: Maternal Grandmother(V18.0, Z83.3) Status:Active Family history of myocardial infarction: Maternal Grandfather, Other(V17.3, Z82.49) Status:Active Colon cancer: Maternal Grand father, Other Status:Active Endometrial adenocarcinoma: Aunt Status:Active Family history of leukemia: Maternal Grandmother(V16.6, Z80.6) Status:Active Unknown Family Member Name Dates Details Allergies: Mother Status:Active Family history of depression : Father(V17.0, Z81.8) Status:Active HTN (hypertension), benign: Father Status:Active Family history of type 2 soraya betes mellitus: Maternal Grandmother(V18.0, Z83.3) Status:Active Family history of myocardial infarction: Maternal Grandfather, Other(V17.3, Z82.49) Status:Active Colon cancer: Maternal Grand father, Other Status:Active Family history of leukemia: Maternal Grandmother(V16.6, Z80.6) Status:Active Endometrial adenocarcinoma: Aunt Status:Active Advance Directives No Advanced Directives Records FoundDocuments on File Type Date Recorded Patient Director Of Pediatric Rehabilitation Expl anation ACP-Advance Directive ACP-Power of Milk Sampler Documents on File Type Date Recorded Patient Director Of Pediatric Rehabilitation Expl anation Advance Directives and Livin g Will 07/21/2020 10:08 AM Latest Code Status on File Code Status Date Activated Date Inactivated Comments Full Code 07/04/2020 5:36 AM 07/05/2020 6:47 PM Full Code 07/02/2020 2:09 PM 07/04/2020 5:36 AM Documents on File Type Date Recorded Patient Director Of Pediatric Rehabilitation Expl anation Advance Directives and Livin g Will 07/23/2020 3:39 AM Latest Code Status on File Code Status Date Activated Date Inactivated Comments Full Code 07/23/2020 4:20 AM 07/24/2020 6:00 PM Full Code 07/04/2020 5:36 AM 07/05/2020 6:47 PM Documents on File Type Date Recorded Patient Director Of Pediatric Rehabilitation Expl anation Advance Directives and Livin g Will 08/01/2020 8:42 PM Latest Code Status on File Code Status Date Activated Date Inactivated Comments Full Code 08/01/2020 9:56 PM 08/02/2020 2:23 PM Full Code 07/23/2020 4:20 AM 07/24/2020 6:00 PM Documents on File Type Date Recorded Patient Director Of Pediatric Rehabilitation Expl anation Advance Directives and Livin g Will 08/20/2020 8:42 PM Latest Code Status on File Code Status Date Activated Date Inactivated Comments Full Code 08/01/2020 9:56 PM 08/02/2020 2:23 PM Full Code 07/23/2020 4:20 AM 07/24/2020 6:00 PM Full Code 07/04/2020 5:36 AM 07/05/2020 6:47 PM Full Code 07/02/2020 2:09 PM 07/04/2020 5:36 AM Documents on File Type Date Recorded Patient Director Of Pediatric Rehabilitation Expl anation Advance Directives and Livin g Will 08/20/2020 8:42 PM Documents on File Type Date Recorded Patient Director Of Pediatric Rehabilitation Expl anation Advance Directives and Livin g Will 09/21/2020 10:21 PM Documents on File Type Date Recorded Patient Director Of Pediatric Rehabilitation Expl anation Advance Directives and Livin g Will 10/27/2020 10:21 PM Documents on File Type Date Recorded Patient Director Of Pediatric Rehabilitation Expl anation Advance Directives and Livin g Will 12/11/2020 12:28 AM Latest Code Status on File Code Status Date Activated Date Inactivated Comments Full Code 08/12/2022 1:40 PM Advance Directive Response Recorded Date/ Time Advance Directives No January 3:47pm Advance Directive Response Recorded Date/ Time Advance Directives No January 2:47pm Discharge Instructions * Instructions* Navi Herman MD - 04/27/2020 Please take antibiotics as prescribed. Return to the Emergency Department immediately if you develop worsening symptoms, or you have any other concerns. Please follow up with your family doctor and OB doctor in 1-2 days. * Attachments The following attachments cannot be sent through Care Everywhere. * : PROM: General Info (Sing[place]an) * : Weeks 26 to 30 (Singaporean) * : Weeks 32 to 34 (Singaporean) documented in this encounter* Instructions* Radu Desouza DO - 07/21/2020 Take Ultram as directed for pain. May also take Tylenol or Motrin every 6 hours as needed for fever, aches or pain. If increased pain or any vomiting go to [place] [facility] for further evaluation and possible admission. Follow-up with surgeon for further evaluation and treatment within the next 1 to 2 days. * Attachments The following attachments cannot be sent through Care Everywhere. * Pancreatitis (Sing[place]an) * Gallstones ([place]an) documented in this encounter* Instructions* Meagn Gilliam, RADIO ENGINEERING TEACHER - 08/02/2020 Please continue a LOW FAT DIET from now until the time of surgery. Please call office with questions or concerns. Learning About Low-Fat Eating What is low-fat eating? Most food has some fat in it. Your body needs some fat to be healthy. But some kinds of fats are healthier than others. In a low-fat eating plan, you try to choose healthier fats and eat fewer unhealthy fats. Healthy fats include olive and canola oil. Try to avoid eating too much saturated fat (such as in cheese and meats) and trans fat (a type of fat found in many packaged snack foods and other baked goods). You do not need to cut all fat from your diet. But you can make healthier choices about the types and amount of fat you eat. Even though it is a good idea to choose healthier fats, it is still important to be careful of how much fat you eat, because all fats are high in calories. What are the different types of fats? Unhealthy fat Saturated fat. Saturated fats are mostly in animal foods, such as meat and dairy foods. Tropical oils, such as coconut oil, palm oil, and cocoa butter, are also saturated fats. Healthy fats Monounsaturated fat. Monounsaturated fats are liquid at room temperature but get solid when refrigerated. Eating foods that are high in this fat may help lower your bad (LDL) cholesterol, keep your good (HDL) cholesterol level up, and lower your chances of getting coronary artery disease. This fat is found in canola oil, olive oil, peanut oil, olives, avocados, nuts, and nut butters. Polyunsaturated fat. Polyunsaturated fats are liquid at room temperature. They are in safflower, sunflower, and corn oils. They are also the main fat in seafood. [place]-3 fatty acids are types of polyunsaturated fat. Eating fish may lower your chances of getting coronary artery disease. Fatty fish such as salmon and mackerel contain these healthy fatty acids. So do ground flaxseeds and flaxseed oil, soybeans, walnuts, and seeds. Why cut down on unhealthy fats? Eating foods that contain saturated fats can raise the LDL ( bad ) cholesterol in your blood. Having a high level of LDL cholesterol increases your chance of hardening of the arteries (atherosclerosis), which can lead to heart disease, heart attack, and stroke. Trans fat raises the level of bad LDL cholesterol in your blood and may lower the good HDL cholesterol in your blood. Trans fat can raise your risk of heart disease, heart attack, and stroke. In general: No more than 10% of your daily calories should come from saturated fat. This is about 20 grams in a2,000-calorie diet. No more than 10% of your daily calories should come from polyunsaturated fat. This is about 20 grams in a 2,000-calorie diet. Monounsaturated fats can be up to 15% of your daily calories. This is about 25 to 30 grams in a 2,000-calorie diet. If you're not sure how much fat you should be eating or how many calories you need each day to stayat a healthy weight, talk to a registered dietitian. He or she can help you create a plan that's right for you. What can you do to cut down on fat? Foods like cheese, butter, sausage, and desserts can have a lot of unhealthy fats. Try these tips for healthier meals at home and when you eat out. At home Fill up on fruits, vegetables, and whole grains. Think of meat as a side dish instead of as the main part of your meal. When you do eat meat, make it extra-lean ground beef (97% lean), ground turkey breast (without skinadded), meats with fat trimmed off before cooking, or skinless chicken. Try main dishes that use whole wheat pasta, brown rice, dried beans, or vegetables. Use cooking methods that use little or no fat, such as broiling, steaming, or grilling. Use cookingspray instead of oil. If you use oil, use a monounsaturated oil, such as canola or olive oil. Read food labels on canned, bottled, or packaged foods. Choose those with little saturated fat and no trans fat. When eating out at a restaurant Order foods that are broiled or poached instead of fried or breaded. Cut back on the amount of butter or margarine that you use on bread. Use small amounts of olive oilinstead. Order sauces, gravies, and salad dressings on the side, and use only a little. When you order pasta, choose tomato sauce instead of cream sauce. Ask for salsa with your baked potato instead of sour cream, butter, cheese, or posadas. Where can you learn more? Log into your personal health record on https://[employer] and enter W495 in the Education box to learn more about Learning About Low-Fat Eating. Current as of: October 23, 2019 Content Version: 12.7 [employer]. Care instructions adapted under license by your healthcare professional. If you have questions about a medical condition or this instruction, always ask your healthcare professional. [employer] disclaims any warranty or liability for your use of this information. documented in this encounter* Instructions* Eagle Swift MD - 08/19/2020 RETURN FOR NEW OR WORSENING SYMPTOMS. * Attachments The following attachments cannot be sent through Care Everywhere. * Gallstones ([place]an) documented in this encounter* Discharge Instr - AVS First Page* Tomy Lomax MD - 08/20/2020 8:27 AM EDT Please call the office or present to the emergency room for any of the following - Fever greater than 100.5 - Significant increasing abdominal pain, nausea vomiting inability to tolerate oral intake - Inability to pass gas or have bowel movement - Yellowing of the skin or eyes * Additional Instructions* Neeta Lomax RN - 08/20/2020 Gallbladder Removal Surgery: What to Expect at Home Your Recovery After your surgery, you will likely feel weak and tired for several days after you return home. Your belly may be swollen. If you had laparoscopic surgery, you may also have pain in your shoulder forabout 24 hours. You may have gas or need to burp a lot at first. A few people get diarrhea. The diarrhea usually goes away in 2 to 4 weeks, but it may last longer. How quickly you recover depends on whether you had a laparoscopic or open surgery. For a laparoscopic surgery, most people can go back to work or their normal routine in 1 to 2 weeks. But it may take longer, depending on the type of work you do. For an open surgery, it will probably take 4 to 6 weeks before you get back to your normal routine. This care sheet gives you a general idea about how long it will take for you to recover. However, each person recovers at a different pace. Follow the steps below to get better as quickly as possible. How can you care for yourself at home? Activity Rest when you feel tired. Getting enough sleep will help you recover. Try to walk each day. Start out by walking a little more than you did the day before. Gradually increase the amount you walk. Walking boosts blood flow and helps prevent pneumonia and constipation. For about 2 to 4 weeks, avoid lifting anything that would make you strain. This may include a child, heavy grocery bags and milk containers, a heavy briefcase or backpack, cat litter or dog food bags, or a vacuum glass mould cleaner. Avoid strenuous activities, such as biking, jogging, weightlifting, and aerobic exercise, until your doctor says it is okay. You may shower 24 to 48 hours after surgery, if your doctor okays it. Pat the cut (incision) dry. Do not take a bath for the first 2 weeks, or until your doctor tells you it is okay. You may drive when you are no longer taking pain medicine and can quickly move your foot from the gas pedal to the brake. You must also be able to sit comfortably for a long period of time, even if you do not plan to go far. You might get caught in traffic. For a laparoscopic surgery, most people can go back to work or their normal routine in 1 to 2 weeks, but it may take longer. For an open surgery, it will probably take 4 to 6 weeks before you get back to your normal routine. Your doctor will tell you when you can have sex again. Diet Eat smaller meals more often instead of fewer larger meals. You can eat a normal diet, but avoid eating fatty foods for about 1 month. Fatty foods include hamburger, whole milk, cheese, and many snack foods. If your stomach is upset, try bland, low-fat foods like plain rice, broiled chicken, toast,and yogurt. Drink plenty of fluids (unless your doctor tells you not to). If you have diarrhea, try avoiding spicy foods, dairy products, fatty foods, and alcohol. You can also watch to see if specific foods cause it, and stop eating them. If the diarrhea continues for more than 2 weeks, talk to your doctor. You may notice that your bowel movements are not regular right after your surgery. This is common. Try to avoid constipation and straining with bowel movements. You may want to take a fiber supplement every day. If you have not had a bowel movement after a couple of days, ask your doctor about taking a mild laxative. Medicines Your doctor will tell you if and when you can restart your medicines. He or she will also give you instructions about taking any new medicines. If you take aspirin or some other blood thinner, ask your doctor if and when to start taking it again. Make sure that you understand exactly what your doctor wants you to do. Take pain medicines exactly as directed. ? If the doctor gave you a prescription medicine for pain, take it as prescribed. ? If you are not taking a prescription pain medicine, take an lykp-nuc-ogucadz medicine such as acetaminophen (Tylenol), ibuprofen (Advil, Motrin), or naproxen (Aleve). Read and follow all instructions on the label. ? Do not take two or more pain medicines at the same time unless the doctor told you to. Many pain medicines contain acetaminophen, which is Tylenol. Too much Tylenol can be harmful. If you think your pain medicine is making you sick to your stomach: ? Take your medicine after meals (unless your doctor tells you not to). ? Ask your doctor for a different pain medicine. If your doctor prescribed antibiotics, take them as directed. Do not stop taking them just because you feel better. You need to take the full course of antibiotics. Incision care If you have strips of tape on the incision, or cut, leave the tape on for a week or until it falls off. After 24 to 48 hours, wash the area daily with warm, soapy water, and pat it dry. You may have shelby to hold the cut together. Keep them dry until your doctor takes them out. Thisis usually in 7 to 10 days. Keep the area clean and dry. You may cover it with a gauze bandage if it weeps or rubs against clothing. Change the bandage every day. Ice To reduce swelling and pain, put ice or a cold pack on your belly for 10 to 20 minutes at a time. Do this every 1 to 2 hours. Put a thin cloth between the ice and your skin. Follow-up care is a stack part of your treatment and safety. Be sure to make and go to all appointments, and call your doctor if you are having problems. It's also a good idea to know your test resultsand keep a list of the medicines you take. When should you call for help? Call 911 anytime you think you may need emergency care. For example, call if: You passed out (lost consciousness). You are short of breath.. Call your doctor now or seek immediate medical care if: You are sick to your stomach and cannot drink fluids. You have pain that does not get better when you take your pain medicine. You cannot pass stools or gas. You have signs of infection, such as: ? Increased pain, swelling, warmth, or redness. ? Red streaks leading from the incision. ? Pus draining from the incision. ? A fever. Bright red blood has soaked through the bandage over your incision. You have loose stitches, or your incision comes open. You have signs of a blood clot in your leg (called a deep vein thrombosis), such as: ? Pain in your calf, back of knee, thigh, or groin. ? Redness and swelling in your leg or groin. Watch closely for any changes in your health, and be sure to contact your doctor if you have any problems. Where can you learn more? Log into your personal health record on https://[employer] and enter F357 in the Education box to learn more about Gallbladder Removal Surgery: What to Expect at Home. Current as of: September 11, 2019 Content Version: 12.7 Kleer. Care instructions adapted under license by your healthcare professional. If you have questions about a medical condition or this instruction, always ask your healthcare professional. [employer] disclaims any warranty or liability for your use of this information. GENERAL POST-OPERATIVE PATIENT INSTRUCTIONS ANESTHESIA PRECAUTIONS: A responsible adult must stay with you for at least 24 hours after surgery. You may feel light headed,, dizzy, or nauseated during this time. Do not operate a vehicle (car, bike, motorcycle, franchise business consultant) machinery or power tools. Do not make any important decisions or drink any alcoholic beverages for 24 hours. Children should remain quiet today. No riding of bicycles, motorcycles, skateboards, playing on swings etc. Drink plenty of fluids today. Eat light, small, frequent meals today. Resume regular diet tomorrow. FOLLOW-UP: Please make an appointment with your physician for follow-up. Call your physician immediately if you have any fevers greater than 101, drainage from your wound that is not clear or looks infected, persistent bleeding, increasing abdominal pain, problems urinating, or persistent nausea/vomiting. DIET: You may eat any foods that you can tolerate. It is a good idea to eat a high fiber diet and take in plenty of fluids to prevent constipation. If you do become constipated you may want to take amild laxative or take ducolax tablets on a daily basis until your bowel habits are regular. Constipation can be very uncomfortable, along with straining, after recent surgery. ACTIVITY: You are encouraged to cough and deep breathe or use your incentive spirometer if you weregiven one, every 15-30 minutes when awake. This will help prevent respiratory complications and lowgrade fevers post-operatively if you had a general anesthetic. You are encouraged to walk and engage in light activity for the next two weeks. MEDICATIONS: Try to take narcotic medications and anti-inflammatory medications, such as ibuprofen,naprosyn, etc., with food. This will minimize stomach upset from the medication. Should you developnausea and vomiting from the pain medication, or develop a rash, please discontinue the medication and contact your physician. You should not drive, make important decisions, or operate machinery when taking narcotic pain medication. Do not take tylenol or tylenol products with narcotic medications. QUESTIONS: Please feel free to call your physician or the hospital trouble operator if you have any questions, and they will be glad to assist you. documented in this encounter Assessments Diagnosis Bacteriuria Other nonspecific finding on examination of urine , unspecified gestational age Diagnosis Acute pancreatitis without infection or necrosis, unspecified pancreatitis type- Primary Calculus of gallbladder without cholecystitis without obstruction Diagnosis Symptomatic cholelithiasis- Primary Abdominal pain, unspecified abdominal location Abnormal LFTs Symptomatic cholelithiasis Diagnosis Symptomatic cholelithiasis Abdominal pain Abdominal pain, unspecified site Abnormal LFTs Gallstone pancreatitis- Primary Acute pancreatitis Acute biliary pancreatitis, unspecified complication status Abdominal pain, unspecified abdominal location Diagnosis Biliary colic- Primary Calculus of gallbladder without mention of cholecystitis or obstruction Diagnosis Symptomatic cholelithiasis- Primary Abdominal pain, unspecified abdominal location Abnormal LFTs Symptomatic cholelithiasis Abdominal pain Abdominal pain, unspecified site Diagnosis Postoperative pain- Primary Other acute postoperative pain Symptomatic cholelithiasis Abdominal pain, unspecified abdominal location Abnormal LFTs Gallstone pancreatitis Acute pancreatitis Diagnosis Status post laparoscopic cholecystectomy- Primary Other postprocedural status History of Present Illness * Tomy Lomax MD - 07/27/2020 9:42 AM EST [facility] PATIENT: Sussy Crane DATE / TIME: 07/27/20 9:42 AM POS: Office AGE: 25 y.o. : 1995 RACE: [1] SEX: female PCP: Physician No REFERRAL: No ref. provider found HISTORY OF PRESENT ILLNESS CC / Reason for Consult: Abdominal pain, abnormal LFTs, symptomatic cholelithiasis HPI: 25-year-old female recently presents after 2 episodes of significant abdominal pain, nausea and vomiting. Was seen in an area emergency room where she was noted to have an elevated lipase, abnormal LFTs and evidence of gallstones on CT imaging. Because of the LFT derangements she underwent an MRCP that was negative for any choledocholithiasis. All of her imaging though reveals a contracted and thickened gallbladder wall with multiple small stones present within the lumen. She describes episodes of significant epigastric pain with associated nausea and a few episodes of emesis.Both episodes were triggered by eating fast food meals. Her past medical history is interesting that she appears to have been on ECMO as a . Her knowledge of the medical history of these events is very limited. 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 When pressed on specific details perhaps regarding a diaphragmatic hernia or other reasons of poor pulmonary development she is uncertain of the details. She is adamant though that she does not believe she had any additional abdominal surgery as an PAST MEDICAL / SURGICAL HISTORY Past Medical History: Diagnosis Date Herpes History of extracorporeal life support as a Past Surgical History: Procedure Laterality Date SHOULDER ARTHROSCOPY W/ LABRAL REPAIR Right slap tear WISDOM TOOTH EXTRACTION FAMILY HISTORY No family history on file. SOCIAL HISTORY Data Unavailable Social History Tobacco Use Smoking Status Never Smoker Smokeless Tobacco Never Used Social History Substance and Sexual Activity Alcohol Use Not Currently Social History Substance and Sexual Activity Drug Use Not Currently MEDICATIONS: Patient has a current medication list which includes the following prescription(s): acetaminophen, multivitamin, phenazopyridine, and tramadol. ALLERGIES: Allergies Allergen Reactions [place] REVIEW OF SYSTEMS Pertinent positives and negatives are listed in HPI, PMSH, SH, ALL above and in Details below. The following systems were reviewed: [] Const (fevers, chills, wt. loss, fatigue) [] CV (HTN, CP, CESPEDES, edema, DVT) [] Resp (SOB, pleurisy, asthma, apnea) [] GI (N, V, D, C, M, abd pain, appetite) [] Musc (back pain, joint stiffness, gout) [] Neuro (seizures, syncope, paralysis) [] Psych (depression, anxiety) [] Endo (hot/cold intol, polyuria[DM]) [] Hem/Lymph (Anemia, LA, bleeding) [] Allerg/Immun (seasonal, immuniz) [] Eyes (diplopia, cataracts) [] ENT/mouth (dysphagia, epistaxis) [] (dysuria, hematuria) [] Skin/Breast (moles, rash, lumps, nipple changes) Details: PHYSICAL EXAM BP 101/70 Pulse 86 Resp 14 Ht 5' 4 Wt 71.2 kg (157 lb) SpO2 95% BMI 26.95 kg/m Details: Physical Exam Constitutional: Appearance: Normal appearance. HENT: Head: Normocephalic. Nose: Nose normal. Eyes: General: No scleral icterus. Pupils: Pupils are equal, round, and reactive to light. Neck: Musculoskeletal: Normal range of motion. Cardiovascular: Rate and Rhythm: Normal rate. Pulmonary: Effort: Pulmonary effort is normal. Abdominal: General: Bowel sounds are normal. There is no distension. Palpations: Abdomen is soft. Musculoskeletal: Normal range of motion. Skin: General: Skin is warm. Coloration: Skin is not jaundiced. Findings: No bruising. Neurological: General: No focal deficit present. Mental Status: She is alert. Psychiatric: Mood and Affect: Mood normal. Thought Content: Thought content normal. Judgment: Judgment normal. LABS / X-RAYS Details: Laboratory Lab Results Component Value Date WBC 4.22 (L) 07/24/2020 RBC 3.51 (L) 07/24/2020 HGB 8.2 (L) 07/24/2020 HCT 28.8 (L) 07/24/2020 PLT 425 (H) 07/24/2020 No results found for: AMYLASE No results found for: LIPASE Comprehensive metabolic panel 07/23/2020 Lipase 399 Alk phos 841 AST 225, ALT [address] abdomen pelvis 07/21/2020 FINDINGS: Lung bases are clear. Solid upper abdominal organs demonstrate no acute abnormalities on this limited noncontrast study. No adrenal mass or adenopathy. No evidence of nephrolithiasis or obstructive uropathy. The gallbladder is decompressed and does contain stones. There is no imaging evidence of biliary or pancreatic ductal dilatation. Aorta is normal caliber. No bowel obstruction or inflammation. No pneumatosis or pneumoperitoneum. Normal appendix. No pelvic adenopathy or ascites. Uterus is grossly normal size for age, not assessed in detail on this modality. Bladder is completely decompressed. No suspicious lytic or sclerotic osseous lesions. IMPRESSION: 1. Cholelithiasis. 2. No acute abnormality. MRCP 07/23/2020 IMPRESSION: 1. No evidence of biliary ductal dilatation. No convincing evidence of choledocholithiasis allowingfor limited visualization of the distal common bile duct. 2. Cholelithiasis with numerous small stones in the gallbladder. Gallbladder is collapsed with prominent wall thickening, and there is a suggestion of mild periportal edema. This pattern is not specific but may be seen in the setting of hepatitis. Please correlate with liver function studies. 3. Mild hepatosplenomegaly. Scattered tiny hepatic cysts. ASSESSMENT AND PLAN: Patient Active Problem List Diagnosis 39 weeks gestation of Gallstone pancreatitis Symptomatic cholelithiasis Abdominal pain Abnormal LFTs 25-year-old female with past medical history of ECMO support as a but no other surgical or medical history presenting with episodic abdominal pain, biliary colic, symptomatic cholelithiasis -Risks and complications of laparoscopic possible open cholecystectomy were discussed with the patient. I did discuss with her my concern that on imaging both CT and MRI her gallbladder is quite thickened, contracted with several small stones. This may require conversion to open in order to better delineate her anatomy and avoid iatrogenic injury. We will plan to repeat her LFTs preoperatively in order to assess trend. 1. Symptomatic cholelithiasis 2. Abdominal pain, unspecified abdominal location 3. Abnormal LFTs Total time 35 minutes, greater than 50% was spent [id number] with the patient obtaining a history, performing exam, reviewing imaging, describing the procedure, obtaining consent and coordinating care. Anticip Anesthesia: Follow-up: ICD: Symptomatic cholelithiasis [K80.20] [] Thank you for the privilege of allowing me to participate in the care of Sussy Crane. documented in this encounter* America Wu, ZAMZAM - 08/02/2020 6:27 AM EST [facility] DAILY PROGRESS NOTE DIAGNOSIS / REASON FOR CONSULT: * Gallstone pancreatitis Assessment & Plan Imaging 07/23 without choledocholithiasis, GB wall thickening and cholelithiasis Improvement to abdominal pain this am, no nausea or vomiting, remains tender over epigastric region Tbili 0.3, AST/ALT 46/39, alk phos 309 Afebrile, WBC 8.5 - Continue NPO, MIV, discuss with attending timing on cholecystectomy SURGERIES/PROCEDURES: Date Operation/Procedure Provider Name TODAY' S ASSESSMENT AND PLAN OF CARE: 1. As above DISPOSITION - tbd CHIEF COMPLAINT/ HPI / PFSHx / EVENTS OVER LAST 24HRS: No acute events overnight. Patient is sitting up in bed. She is reporting overall improvement to pain from admission. No N/V. Decreased appetite. REVIEW OF SYSTEMS: Other than the above items the remainder of the complete ROS is otherwise unchanged from admission. PHYSICAL EXAM: Temp: [98.1 F (36.7 C)] 98.1 F (36.7 C) Heart Rate: [57-78] 57 Resp: [16-18] 16 BP: (99-141)/(50-79) 99/50 GENERAL: Appears age appropriate. No acute distress. NEUROLOGICAL: Alert and oriented X 3. Follows commands with extremities x4, equal strength. EYES/EARS/NOSE/MOUTH/THROAT: Conjunctivae/sclerae/corneas clear. Ears: External ear normal. Hearingwithin normal limits for patient. No drainage. Nose: nares normalNeck: supple, symmetrical, tracheamidline. CARDIOVASCULAR: Regular rate and rhythm. No peripheral edema noted. 2+ pulses radial/DP/PT bilaterally. RESPIRATORY: Lungs, clear to auscultation bilaterally. No rhonchi, wheezes or crackles. Respiratoryeffort unlabored without use of accessory muscles. ABDOMINAL: Rounded, soft, tenderness to epigastric region and RUQ, nondistended, normal bowel sounds. No guarding or peritoneal signs. GENITOURINARY: Voiding without difficulty. No dysuria or retention. No gross hematuria. MUSCULOSKELETAL: Extremities atraumatic without gross deformity x4. ROM appropriate for age. No clubbing, cyanosis or joint edema. SKIN: Skin warm and dry. Normal turgor. No rashes or lesions. Intake/Output Summary (Last 24 hours) at 08/02/2020 0627 Last data filed at 08/02/2020 0312 Gross per 24 hour Intake 462.67 ml Output Net 462.67 ml IMAGING [briefly note any results pertinent to today's evaluation]: None new LABS Lab Results Component Value Date WBC 8.51 08/02/2020 HGB 8.6 (L) 08/02/2020 HCT 29.6 (L) 08/02/2020 MCV 80.4 08/02/2020 PLT 299 08/02/2020 RBC 3.68 (L) 08/02/2020 Lab Results Component Value Date GLUCOSE 120 (H) 08/02/2020 CALCIUM 8.4 08/02/2020 NA 140 08/02/2020 K 3.7 08/02/2020 CL 112 (H) 08/02/2020 BUN 12 08/02/2020 CREATININE 0.96 08/02/2020 Lab Results Component Value Date ALT 38 08/02/2020 ALT 39 08/02/2020 AST 45 08/02/2020 AST 46 (H) 08/02/2020 ALKPHOS 317 (H) 08/02/2020 ALKPHOS 309 (H) 08/02/2020 BILITOT 0.3 08/02/2020 BILITOT 0.3 08/02/2020 DAILY CHECKLIST: *Need for Restraints: No *Need for Urinary Catheter: no *Need for Central Access Devices: no *Stress Ulcer Prophylaxis: pepcid *VTE Prophylaxis (Body mass index is 26.95 kg/m ., Estimated Creatinine Clearance: 78.7 mL/min (by C-G formula based on SCr of 0.96 mg/dL).): Start lovenox *Code Status: Full Associated attestation - Cecil Navarrete MD - 08/02/2020 9:10 AM EST SURGERY ATTENDING ATTESTATION: I agree with the Advanced Practice Provider note with the same day of service. The patient was seen, interviewed and examined by me, the attending surgeon, on rounds on the date of service listed above. I have personally reviewed the Advanced Practice Provider note with the relevant labs, imaging studies (images as well as reports), and therapeutic consultant notes. I have reviewed and agree with the documented history, exam, and plan of care, with the following additions and corrections: The patient tells me that her pain is resolved. She is hungry. She denies nausea. Abdomen: Soft, nondistended, nontender Labs reviewed Assessment/plan: Acute on chronic cholecystitis, history of gallstone pancreatitis 1. The patient symptoms have resolved. She is on my schedule for cholecystectomy on 08/20/2020 2. Low-fat diet as tolerated 3. Anticipate discharge home today if she tolerates her diet. We will proceed with surgery as previously scheduled. The patient is instructed to be on a low- fat diet between now and the time of her scheduled surgery. documented in this encounter* Tomy Lomax MD - 07/27/2020 9:42 AM EST [facility] PATIENT: Sussy Crane DATE / TIME: 07/27/20 9:42 AM POS: Office AGE: 25 y.o. : 1995 RACE: [1] SEX: female PCP: Physician No REFERRAL: No ref. provider found HISTORY OF PRESENT ILLNESS CC / Reason for Consult: Abdominal pain, abnormal LFTs, symptomatic cholelithiasis HPI: 25-year-old female recently presents after 2 episodes of significant abdominal pain, nausea and vomiting. Was seen in an area emergency room where she was noted to have an elevated lipase, abnormal LFTs and evidence of gallstones on CT imaging. Because of the LFT derangements she underwent an MRCP that was negative for any choledocholithiasis. All of her imaging though reveals a contracted and thickened gallbladder wall with multiple small stones present within the lumen. She describes episodes of significant epigastric pain with associated nausea and a few episodes of emesis.Both episodes were triggered by eating fast food meals. Her past medical history is interesting that she appears to have been on ECMO as a infant. Her knowledge of the medical history of these events is very limited. 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 When pressed on specific details perhaps regarding a diaphragmatic hernia or other reasons of poor pulmonary development she is uncertain of the details. She is adamant though that she does not believe she had any additional abdominal surgery as an PAST MEDICAL / SURGICAL HISTORY Past Medical History: Diagnosis Date Herpes History of extracorporeal life support as a Past Surgical History: Procedure Laterality Date SHOULDER ARTHROSCOPY W/ LABRAL REPAIR Right slap tear WISDOM TOOTH EXTRACTION FAMILY HISTORY No family history on file. SOCIAL HISTORY Data Unavailable Social History Tobacco Use Smoking Status Never Smoker Smokeless Tobacco Never Used Social History Substance and Sexual Activity Alcohol Use Not Currently Social History Substance and Sexual Activity Drug Use Not Currently MEDICATIONS: Patient has a current medication list which includes the following prescription(s): acetaminophen, multivitamin, phenazopyridine, and tramadol. ALLERGIES: Allergies Allergen Reactions [place] REVIEW OF SYSTEMS Pertinent positives and negatives are listed in HPI, PMSH, SH, ALL above and in Details below. The following systems were reviewed: [] Const (fevers, chills, wt. loss, fatigue) [] CV (HTN, CP, CESPEDES, edema, DVT) [] Resp (SOB, pleurisy, asthma, apnea) [] GI (N, V, D, C, M, abd pain, appetite) [] Musc (back pain, joint stiffness, gout) [] Neuro (seizures, syncope, paralysis) [] Psych (depression, anxiety) [] Endo (hot/cold intol, polyuria[DM]) [] Hem/Lymph (Anemia, LA, bleeding) [] Allerg/Immun (seasonal, immuniz) [] Eyes (diplopia, cataracts) [] ENT/mouth (dysphagia, epistaxis) [] (dysuria, hematuria) [] Skin/Breast (moles, rash, lumps, nipple changes) Details: PHYSICAL EXAM BP 101/70 Pulse 86 Resp 14 Ht 5' 4 Wt 71.2 kg (157 lb) SpO2 95% BMI 26.95 kg/m Details: Physical Exam Constitutional: Appearance: Normal appearance. HENT: Head: Normocephalic. Nose: Nose normal. Eyes: General: No scleral icterus. Pupils: Pupils are equal, round, and reactive to light. Neck: Musculoskeletal: Normal range of motion. Cardiovascular: Rate and Rhythm: Normal rate. Pulmonary: Effort: Pulmonary effort is normal. Abdominal: General: Bowel sounds are normal. There is no distension. Palpations: Abdomen is soft. Musculoskeletal: Normal range of motion. Skin: General: Skin is warm. Coloration: Skin is not jaundiced. Findings: No bruising. Neurological: General: No focal deficit present. Mental Status: She is alert. Psychiatric: Mood and Affect: Mood normal. Thought Content: Thought content normal. Judgment: Judgment normal. LABS / X-RAYS Details: Laboratory Lab Results Component Value Date WBC 4.22 (L) 07/24/2020 RBC 3.51 (L) 07/24/2020 HGB 8.2 (L) 07/24/2020 HCT 28.8 (L) 07/24/2020 PLT 425 (H) 07/24/2020 No results found for: AMYLASE No results found for: LIPASE Comprehensive metabolic panel 07/23/2020 Lipase 399 Alk phos 841 AST 225, ALT [address] abdomen pelvis 07/21/2020 FINDINGS: Lung bases are clear. Solid upper abdominal organs demonstrate no acute abnormalities on this limited noncontrast study. No adrenal mass or adenopathy. No evidence of nephrolithiasis or obstructive uropathy. The gallbladder is decompressed and does contain stones. There is no imaging evidence of biliary or pancreatic ductal dilatation. Aorta is normal caliber. No bowel obstruction or inflammation. No pneumatosis or pneumoperitoneum. Normal appendix. No pelvic adenopathy or ascites. Uterus is grossly normal size for age, not assessed in detail on this modality. Bladder is completely decompressed. No suspicious lytic or sclerotic osseous lesions. IMPRESSION: 1. Cholelithiasis. 2. No acute abnormality. MRCP 07/23/2020 IMPRESSION: 1. No evidence of biliary ductal dilatation. No convincing evidence of choledocholithiasis allowingfor limited visualization of the distal common bile duct. 2. Cholelithiasis with numerous small stones in the gallbladder. Gallbladder is collapsed with prominent wall thickening, and there is a suggestion of mild periportal edema. This pattern is not specific but may be seen in the setting of hepatitis. Please correlate with liver function studies. 3. Mild hepatosplenomegaly. Scattered tiny hepatic cysts. ASSESSMENT AND PLAN: Patient Active Problem List Diagnosis 39 weeks gestation of Gallstone pancreatitis Symptomatic cholelithiasis Abdominal pain Abnormal LFTs 25-year-old female with past medical history of ECMO support as a but no other surgical or medical history presenting with episodic abdominal pain, biliary colic, symptomatic cholelithiasis -Risks and complications of laparoscopic possible open cholecystectomy were discussed with the patient. I did discuss with her my concern that on imaging both CT and MRI her gallbladder is quite thickened, contracted with several small stones. This may require conversion to open in order to better delineate her anatomy and avoid iatrogenic injury. We will plan to repeat her LFTs preoperatively in order to assess trend. 1. Symptomatic cholelithiasis 2. Abdominal pain, unspecified abdominal location 3. Abnormal LFTs Total time 35 minutes, greater than 50% was spent [id number] with the patient obtaining a history, performing exam, reviewing imaging, describing the procedure, obtaining consent and coordinating care. Anticip Anesthesia: Follow-up: ICD: Symptomatic cholelithiasis [K80.20] [] Thank you for the privilege of allowing me to participate in the care of Sussy Crane. documented in this encounter* Tomy Lomax MD - 09/03/2020 1:25 PM EDT [facility] PATIENT: Sussy Crane DATE / TIME: 09/03/20 1:25 PM POS: Office AGE: 25 y.o. : 1995 RACE: [1] SEX: female PCP: Carlito Martin MD REFERRAL: No ref. provider found TOS: SUBJECTIVE: 25-year-old female with past medical history of gallstone pancreatitis status post laparoscopic cholecystectomy on 08/20/2020 Returns today for follow-up. Denies any significant abdominal pain, nausea or vomiting. Tolerating a regular diet OBJECTIVE: BP 109/70 (BP Location: Right arm, Patient Position: Sitting, BP Cuff Size: Adult) Pulse (!) 51 Resp 15 Ht 5' 4 Wt 66.7 kg (147 lb) SpO2 97% BMI 25.23 kg/m PE General awake alert no acute distress Respiratory nonlabored on room air CV nontachycardic Abdomen is soft nontender nondistended. Incisions intact with no significant erythema fluctuance ordrainage Lab Results Component Value Date WBC 8.51 08/02/2020 RBC 3.68 (L) 08/02/2020 HGB 8.6 (L) 08/02/2020 HCT 29.6 (L) 08/02/2020 PLT 299 08/02/2020 No results found for: AMYLASE No results found for: LIPASE IMAGING: PATHOLOGY: Final Diagnosis A. Gallbladder, cholecystectomy: Chronic cholecystitis with cholelithiasis. ASSESSMENT: 25-year-old female with past medical history of gallstone pancreatitis status post laparoscopic cholecystectomy on 08/20/2020 PLAN: Patient Active Problem List Diagnosis 39 weeks gestation of Gallstone pancreatitis Symptomatic cholelithiasis Abdominal pain Abnormal LFTs Overall well-appearing Surgical sites without any evidence of infection Pathology as above reviewed with the patient. Encouraged her to continue a lifting restriction of no more than 20 to 30 pounds for total of 3 weeks from surgery Patient can return to my office any problems arise or concern for recurrence of her pain or other surgical problem documented in this encounter Chief Complaint * Review right shoulder MRI * Labral tear of shoulder, Shoulder impingement * Review right shoulder MRI * Labral tear of shoulder, Shoulder impingement pre op Rt shoulderf/u H&P sx 05/07/21 rt shoulderPostOp Rt Shoulder Sx 05/11/21 PostOp Rt Shoulder Sx 05/11/21f/u H&P sx 05/07/21 rt shoulderf/u rt capsulorrhaphy x 3 weeks out with xraysFollow-up from Shoulder Surgery* Rt Shoulder Sx 05/11/21 * incision infection Rt Shoulder Capsulorrhaphy 05/11/21 Wound CheckRt Shoulder Capsulorrhaphy 05/11/21 Wound Check* Rash on arms, hips and knees. * pain in hips * Still Has not taste or smell from having Covid a year ago * Coughing at night time. * Rt hip pain f/u * c/o soreness Rt Shoulder Capsulorrhaphy 05/11/21 ROM CheckBlood in urine. pain in abdomen and back. She states that the pain is so bad it almost brought her to her knees.new patient c/o on and off bleeding for a month, pelvic pain, and stabbing pain around abdomen area.new patient c/o on and off bleeding for a month, pelvic pain, and stabbing pain around abdomen area.new patient c/o on and off bleeding for a month, pelvic pain, and stabbing pain around abdomen area.* est patient - H/S EMB * test - neg * consent obtained * yisel abbott ma * est patient - H/S EMB * test - neg * consent obtained * yisel abbott ma F/U MRI Lumbar done at .* est patient - H/S EMB * test - neg * consent obtained * yisel abbott ma established patient. bilat hip pain. xrays today.established patient. bilat hip pain. xrays today.Pt is here for cystoscopy for recurrent UTI and hematuria JML Patient in office today for hip pain x 16-17 months. Pt states that the pain is bilateral and has been going on since she gave . Has tried Advil with no relief. Pt states that the pain radiates to her knees at times.New pt visit, 26 y/o female here today with joint pain along with rashes over body.New pt visit, 26 y/o female here today with joint pain along with rashes over body.* Est pt here for heavy bleeding pt has been bleeding for a week and the flow has not let up * has burning sensation in abdomen to back * pt had polyps removed 09/20/2021 * medication specialist kaylee hunt * Discharged from [facility] on 01/14/2022 * She was bleeding heavily for one and a half weeks. She was put on control but she has startedbleeding this morning again. She feels like she is having kidney pain. * fingers are tingling Pt is here for cystoscopy for recurrent UTI and hematuria JML* incision from surgery infected * abdominal surgery * Discharged from [facility] on 01/14/2022 * She was bleeding heavily for one and a half weeks. She was put on control but she has startedbleeding this morning again. She feels like she is having kidney pain. * fingers are tingling * swelling hands, feet face * hives - not active was itchy injection* right shoulder still hurts, constant * cortisone shot done last time, helped for a week and then came back Reason for Referral Specialty Diagnoses / Procedures Referred By Deanne t Referred To Contact [facility] Diagnoses Fibromyalgia Procedures CONSULT TO [facility]) OFFICE/OUTPATIENT [facility] 60-74 MINUTES Cathy Moran MD [address] [place] [address] Referral ID Status Reason Start Date Expiration Date Visits Requested Visits Authorized [id number] Pending Review PCP Requested Referral 06/28/2022 06/28/2023 1 1 Specialty Diagnoses / Procedures Referred By Alidaac t Referred To Contact Orthopedics Diagnoses Pain in right hip Procedures CONSULT PANEL TO ORTHOPAEDICS OFFICE/OUTPATIENT [facility] 60-74 MINUTES Cathy Moran MD [address] [place] [address] Referral ID Status Reason Start Date Expiration Date Visits Requested Visits Authorized [id number] Authorized PCP Requested Referral 06/28/2022 06/28/2023 1 1 Specialty Diagnoses / Procedures Referred By Alidaac t Referred To Contact MR IMAGING Diagnoses Pain in hip Procedures MRI HIP WO IVCON LT MRI ANY JT LOWER EXTREM W/O CONTRAST Rahul Patrick, [facility] [address] [place] [address] Mr Imaging Referral ID Status Reason Start Date Expiration Date Visits Requested Visits Authorized [id number] Additional Clinical Info Needed Auto-Generat ed Referral 07/08/2022 08/07/2023 1 1 Specialty Diagnoses / Procedures Referred By Contac t Referred To Contact MR IMAGING Diagnoses Pain in hip Procedures MRI HIP WO IVCON RT MRI ANY JT LOWER EXTREM W/O CONTRAST Rahul Patrick, [facility] [place] [id number] Mr Imaging Referral ID Status Reason Start Date Expiration Date Visits Requested Visits Authorized [id number] Additional Clinical Info Needed Auto-Generat ed Referral 07/08/2022 08/07/2023 1 1 Specialty Diagnoses / Procedures Referred By Contac t Referred To Contact XR IMAGING Diagnoses Pain in right hip Procedures XR HIP GENERAL 3V PELV/AP/LAT RIGHT RADEX HIP UNILATERAL WITH PELVIS 2-3 VIEWS Rahul Mccallum, [place] [address] Xr Imaging Referral ID Status Reason Start Date Expiration Date V isits Requested Visits Authorized [id number] Closed Auto-Generate d Referral 07/08/2022 08/03/2023 1 1 Specialty Diagnoses / Procedures Referred By Contac t Referred To Contact MR IMAGING Diagnoses Pain in hip Procedures MRI HIP WO IVCON RT MRI ANY JT LOWER EXTREM W/O CONTRAST Rahul Patrick, DO [address] [place] [address] [place] [address] Referral ID Status Reason Start Date Expiration Date V isits Requested Visits Authorized [id number] Closed Auto-Generate d Referral 07/12/2022 09/10/2022 1 1 Specialty Diagnoses / Procedures Referred By Contac t Referred To Contact Radiology Diagnoses Acute pain of right shoulder Labral tear of shoulder, degenerative, right Procedures XR arthrogram shoulder right Radu Fisher MD [address] [facility], [address] [place] [id number] Referral ID Status Reason Start Date Expiration Date Visits Requested Visits Authorized [id number] Authorized Perform Procedure 06/12/2023 06/11/2024 1 1 Specialty Diagnoses / Procedures Referred By Contac t Referred To Contact Radiology Diagnoses Acute pain of right shoulder Labral tear of shoulder, degenerative, right Procedures MR arthrogram shoulder right Radu Fisher MD [address] [facility], [address] [place] [id number] Referral ID Status Reason Start Date Expiration Date Visits Requested Visits Authorized [id number] Pending Review Perform Procedure 06/12/2023 06/11/2024 1 1 Specialty Diagnoses / Procedures Referred By Contac t Referred To Contact Radiology Diagnoses Acute pain of right shoulder Procedures XR shoulder right 2+ views Radu Fisher MD [address] [address] Referral ID Status Reason Start Date Expiration Date Visits Requested Visits Authorized [id number] Authorized Perform Procedure 06/12/2023 06/11/2024 1 1 Specialty Diagnoses / Procedures Referred By Contac t Referred To Contact [facility] Diagnoses Pain in joint of right shoulder Shoulder weakness Posture imbalance Decreased range of motion of right shoulder Procedures PT REHAB FOLLOW UP ORDER THERAPEUTIC EXERCISES RE, EA 15 MIN. Pt [facility] [address] [place] [address] [facility] [address] [address] Referral ID Status Reason Start Date Expiration Date Visits Requested Visits Authorized [id number] Pending Review PCP Requested Referral Auto-Generate d Referral 08/08/2023 11/06/2023 1 1 Specialty Diagnoses / Procedures Referred By Contac t Referred To Contact Radiology Diagnoses Pelvic pain Procedures US pelvis Meño Retana MD [address] [facility], [facility] [address] [place] [address] Referral ID Status Reason Start Date Expiration Date Visits Requested Visits Authorized [id number] Authorized Perform Procedure 11/06/2023 11/05/2024 1 1 Specialty Diagnoses / Procedures Referred By Deanne orozco Referred To Contact Physical Therapy Diagnoses High-tone pelvic floor dysfunction in female Meño Retana MD [address] [facility], [place] [id number] Referral ID Status Reason Start Date Expiration Date Visits Requested Visits Authorized [id number] Pending Review Specialty Services Required 11/06/2023 11/05/2024 1 1 Chief Complaint and Reason for Visit Chief Complaint ear pain, infected o utter ear, rash on hands/foot Chief Complaint ear pain, infected o utter ear, rash on hands/foot left ear and jaw pain Reason for Visit Atopic dermatitis Cellulitis of right external ear Additional Source Comments INFORMATION SOURCE (unrecogn ized section and content) DATE CREATED AUTHOR 11/22/2017 [facility] DATE CREATED AUTHOR AUTHOR'S ORGANIZ ATION 08/17/2018 [facility] DATE CREATED AUTHOR AUTHOR'S ORGANIZ ATION 09/24/2020 [facility] DATE CREATED AUTHOR AUTHOR'S ORGANIZ ATION 02/14/2021 [facility] DATE CREATED AUTHOR AUTHOR'S ORGANIZ ATION 05/01/2021 [facility] DATE CREATED AUTHOR AUTHOR'S ORGANIZ ATION 05/14/2021 [facility] DATE CREATED AUTHOR AUTHOR'S ORGANIZ ATION 08/18/2021 [facility] DATE CREATED AUTHOR AUTHOR'S ORGANIZ ATION 09/09/2021 [facility] DATE CREATED AUTHOR AUTHOR'S ORGANIZ ATION 01/20/2022 [facility] DATE CREATED AUTHOR AUTHOR'S ORGANIZ ATION 05/11/2022 [facility] DATE CREATED AUTHOR AUTHOR'S ORGANIZ ATION 07/05/2022 [facility] DATE CREATED AUTHOR AUTHOR'S ORGANIZ ATION 07/30/2022 [facility] DATE CREATED AUTHOR AUTHOR'S ORGANIZ ATION 08/31/2022 [facility] DATE CREATED AUTHOR AUTHOR'S ORGANIZ ATION 09/02/2022 [facility] DATE CREATED AUTHOR AUTHOR'S ORGANIZ ATION 09/02/2022 [facility] DATE CREATED AUTHOR AUTHOR'S ORGANIZ ATION 11/11/2022 [facility] DATE CREATED AUTHOR AUTHOR'S ORGANIZ ATION 01/17/2023 [facility] DATE CREATED AUTHOR AUTHOR'S ORGANIZ ATION 01/17/2023 [employer] DATE CREATED AUTHOR AUTHOR'S ORGANIZ ATION 07/09/2023 [facility] DATE CREATED AUTHOR AUTHOR'S ORGANIZ ATION 07/28/2023 [facility] DATE CREATED AUTHOR AUTHOR'S ORGANIZ ATION 12/23/2023 [facility] DATE CREATED AUTHOR AUTHOR'S ORGANIZ ATION 01/04/2024 [facility] DATE CREATED AUTHOR AUTHOR'S ORGANIZ ATION 04/27/2024 [facility] DATE CREATED AUTHOR AUTHOR'S ORGANIZ ATION 04/27/2024 [facility] DATE CREATED AUTHOR AUTHOR'S ORGANIZ ATION 06/09/2024 [facility] Reason for Visit (unrecogniz ed section and content) Reason Comments Physical Therapy PT Discharge Specialty Diagnoses / Procedures Referred By Deanne orozco Referred To Contact PHYSICAL THERAPY Diagnoses R SHOULDER Procedures NEW RS PT TEAM Daniel Sena, DO [address] [place] [address] [facility] [address] [place] [address] Referral ID Status Reason Start Date Expiration Date Visits Re quested Visits Authorized [id number] Closed 05/29/2023 05/28/2024 1 1 Reason Comments Other Pt reports vaginal d ischarge ( clear, slimy ). Onset- Monday. Pt is approx 30 wks. . Reason Comments Abdominal Pain (Pt is 2 weeks post- .) since Monday-last BM this am. Reason Comments Consult gallbladder Reason Comments Abdominal Pain Status Reason Specialty Diagnoses / Procedures Referre d By Contact Referred To Contact Diagnoses Gallstone pancreatitis Acute biliary pancreatitis, unspecified complication status Reason Comments Emesis Abdominal Pain Status Reason Specialty Diagnoses / Procedures Re ferred By Contact Referred To Contact Diagnoses Symptomatic cholelithiasis Abdominal pain, unspecified abdominal location Abnormal LFTs Symptomatic cholelithiasis [K80.20] Abdominal pain, unspecified abdominal location [R10.9] Abnormal LFTs [R94.5] Procedures ND LAP,CHOLECYSTECTOMY Tomy Lomax MD [address] [facility] [address] [place] [address] Reason Comments Post-op Lap daniel 08-20-20 do ing good Reason Comments Follow-up abd pain/ swelling n ear incision site Reason Comments Abdominal Pain Rash Reason Comments Abdominal Pain Bilateral flank pain , with left sided abdominal stating that it feels hard, a month late on period but home tests negative. Denies n/v/d and constipation. Reason Comments Neck Pain x1day Reason Comments Abdominal Cramping C/o abnormal period with heavy bleeding and blood clots and abdominal cramping for past week and half with no relief. Reason Comments Vaginal Bleeding Bleeding on and off for the last week and a half, cramping bad recently, this morning woke up to full pad and passed large flesh/clot. Patient thinks she may have had a miscarriage, no home test Reason Comments Radiology XR Reason Comments Consult Bilateral hip pain, since gave , 20 months ago. Patient states she can feel the joints popping in and out. She also notes that ortho dr told her she has bone spurs on hips. Reason Comments Rx Refills Reason Comments Recheck Hips, both, ongoing, pain scale 6. Reason Comments New Specialty Diagnoses / Procedures Referred By Deanne orozco Referred To Contact Orthopedics Diagnoses Pain in right hip Procedures CONSULT PANEL TO ORTHOPAEDICS OFFICE/OUTPATIENT NEW HIGH MDM 60-74 MINUTES Cathy Moran MD [address] [place] [address] Referral ID Status Reason Start Date Expiration Date V isits Requested Visits Authorized [id number] Closed PCP Requested Referral 06/28/2022 06/28/2023 1 1 Specialty Diagnoses / Procedures Referred By Deanne orozco Referred To Contact Diagnoses Adenomyosis of uterus Pelvic pain in female Dysmenorrhea Menometrorrhagia Dyspareunia, female Adenomyosis of uterus [N80.03] Pelvic pain in female [R10.2] Dysmenorrhea [N94.6] Menometrorrhagia [N92.1] Dyspareunia, female [N94.10] Procedures ND LAPS TOTAL HYSTERECTOMY 250 G/< W TUBE/OVARY HYSTERECTOMY TOTAL ABDOMINAL ROBOTIC W/ REMOVAL TUBES/OVARIES Pascual Zuniga MD [address] [place] [address] [facility] Referral ID Status Reason Start Date Expiration Date Visits Re quested Visits Authorized [id number] 1 1 Reason Comments Other Patient has multiple complaints, states she had a hysterectomy a week ago. Patient reports, flu-like symptoms, sore throat, nausea, vomiting, diarrhea, lightheadedness, weakness, abdominal pain, dizziness x 4 days. Reason Comments Urticaria Since yesterday Specialty Diagnoses / Procedures Referred By Contac t Referred To Contact MR IMAGING Diagnoses Pain in hip Procedures MRI HIP WO IVCON RT MRI ANY JT LOWER EXTREM W/O CONTRAST Rahul Patrick, DO [address] [place] [address] [place] [address] Referral ID Status Reason Start Date Expiration Date V isits Requested Visits Authorized [id number] Closed Auto-Generate d Referral 07/12/2022 09/10/2022 1 1 Reason Comments Follow-up Follow up , asking i f she can get a skin biop. Swelling in legs and painful and itch. fatigue Reason Comments Follow-up mri Reason Comments New Reason Comments Appointment Reason Comments PT Eval Patient Education Physical Therapy Specialty Diagnoses / Procedures Referred By Contac t Referred To Contact PHYSICAL THERAPY Diagnoses R SHOULDER Procedures NEW RS PT TEAM Daniel Sena, DO [address] [place] [address] Pt [facility] [address] [place] [address] Reason Comments New Pain (Shoulder Pain) Reason Comments Physical Therapy Reason Comments Pelvic Pain Est pt Turbinated Bone Grinder lucy dent Reason Comments Established Patient Reason Comments knee Left knee, having tr ouble walking down stairs. Pinching feeling going down and around knee cap. She had to scoot down the stairs Ijeoma Andrew RN - 07/21/2020 12:46 PM Casey Lopez LPN - 07/21/2020 12:44 PM Ijeoma Boyle RN - 07/21/2020 11:38 AM Ijeoma Boyle RN - 07/21/2020 10:20 AM EST ED Notes (unrecognized secti on and content) Received call from lab. Lipase 8,098. Called and spoke with pharmacy d/t tramadol script pt notified this nurse upon discharge she is currently . Pharmacy advised tramadol not recommended in women. Pt was notified and will supplement with formula while taking tramadol. Per Felisha Andrew RN pt to not resume until 24-48 hours after last dose of tramadol. Pt voiced understanding. Called Lab for stat pickup Presents to the ED c/o abdominal pain (points to epigastric area). Rates pain 2/10 and burning. ED PROVIDER NOTE [facility] NAME: Sussy Crane AGE: 25 y.o. : 1995 VISIT DATE: 07/21/2020 CSN: [id number] PCP: Physician No Chief Complaint Patient presents with Abdominal Pain (Pt is 2 weeks post-.) since Monday-last BM this am. Chief complaint: Abdominal pain. History of chief complaint: This 25-year-old female presents to ER complaining of upper abdominal pains since Monday. Patient states the pain is intermittent but started again at 330 this morning. Also complains of having had 2 episodes of emesis at the onset of her symptoms Monday but denies any further vomiting, diarrhea, constipation now. Denies any fever. Patient complains of some mild dysuria since her delivery on 07/04 but denies any flank pain. She denies any history of other abdominal surgeries. In addition she complains of some mild heartburn with intolerance to spicy foods. Past Medical History: Diagnosis Date Herpes Past Surgical History: Procedure Laterality Date SHOULDER 1 VIEW BILATERAL Right slap tear WISDOM TOOTH EXTRACTION History reviewed. No pertinent family history. Social History Socioeconomic History Marital status: Single Spouse name: Not on file Number of children: Not on file Years of education: Not on file Highest education level: Not on file Occupational History Not on file Social Needs Financial resource strain: Not on file Food insecurity Worry: Not on file Inability: Not on file Transportation needs Medical: Not on file Non-medical: Not on file Tobacco Use Smoking status: Never Smoker Smokeless tobacco: Never Used Substance and Sexual Activity Alcohol use: Not Currently Drug use: Not Currently Sexual activity: Not on file Lifestyle Physical activity Days per week: Not on file Minutes per session: Not on file Stress: Not on file Relationships Social connections Talks on phone: Not on file Gets together: Not on file Attends gnosticism service: Not on file Active member of club or organization: Not on file Attends meetings of clubs or organizations: Not on file Relationship status: Not on file Other Topics Concern Not on file Social History Narrative Not on file Previous Medications Medication Sig acetaminophen (TYLENOL) 650 mg/20.3 mL Soln Take 20.3 mL (650 mg total) by mouth every 6 (six) hours as needed . ferrous sulfate 300 mg (60 mg iron)/5 mL syrup Take 5 mL (300 mg total) by mouth 2 (two) times a day . No Known Allergies Review of Systems Constitutional: Negative. Negative for fever. HENT: Negative. Eyes: Negative. Respiratory: Negative. Cardiovascular: Negative. Gastrointestinal: Positive for vomiting (at onset of symptoms on Monday but none currently). Endocrine: Negative. Genitourinary: Positive for dysuria. Negative for flank pain. Musculoskeletal: Negative. Skin: Negative. Allergic/Immunologic: Negative. Neurological: Negative. Hematological: Negative. Psychiatric/Behavioral: Negative. All other systems reviewed and are negative. No data found. Physical Exam Vitals signs and nursing note reviewed. Constitutional: General: She is not in acute distress. Appearance: She is well-developed. She is not ill-appearing, toxic-appearing or diaphoretic. HENT: Head: Normocephalic and atraumatic. Right Ear: External ear normal. Left Ear: External ear normal. Mouth/Throat: Mouth: Mucous membranes are moist. Pharynx: Oropharynx is clear. Eyes: Extraocular Movements: Extraocular movements intact. Pupils: Pupils are equal, round, and reactive to light. Cardiovascular: Rate and Rhythm: Normal rate and regular rhythm. Pulses: Normal pulses. Heart sounds: Murmur present. Pulmonary: Effort: Pulmonary effort is normal. Breath sounds: Normal breath sounds. Abdominal: General: Abdomen is flat. Bowel sounds are normal. There is no distension. Palpations: Abdomen is soft. There is no mass. Tenderness: There is abdominal tenderness (slight upper abdominal/epigastric tenderness). There is no right CVA tenderness, left CVA tenderness, guarding or rebound. Musculoskeletal: Normal range of motion. Skin: General: Skin is warm and dry. Capillary Refill: Capillary refill takes less than 2 seconds. Neurological: General: No focal deficit present. Mental Status: She is alert and oriented to person, place, and time. Psychiatric: Mood and Affect: Mood normal. Behavior: Behavior normal. Laboratory & Radiographic Imaging (if done): No results found for this visit on 07/21/20. No orders to display Procedures MDM The patient has been informed that they may have pre-hypertension or hypertension based on a blood pressure reading in the Emergency Department. I recommend that the patient call the primary care provider listed on their discharge instructions or a physician of their choice as soon as possible to arrange follow-up in the next 4 weeks for further evaluation of possible pre-hypertension or hypertension. . Clinical Impression: No diagnosis found. ED Disposition None Follow-up Information Follow-up information has not been specified. Contact information for after-discharge care Follow-up information has not been specified. Radu Desouza DO 07/21/20 1202 documented in this encounter Report called to RN on 2W Patient alert and resting in bed, call light in reach. States having some relief of symptoms. ED PROVIDER NOTE [facility] EMERGENCY [facility]PARTMENT NAME: Sussy Crane AGE: 25 y.o. : 1995 VISIT DATE: 08/01/2020 CSN: [id number] PCP: Carltio Martin MD Chief Complaint Patient presents with Abdominal Pain Patient is a 25-year-old female who presents to the emergency department for evaluation of acute onset epigastric pain which started approximately 1 hour prior to arrival tonight. Patient was admitted to this facility on [address] Cecil Navarrete for gallstone pancreatitis. At that time, the patient's lipase was noted to be in excess of 46,000. MRCP that was obtained was negative. Patient was discharged and followed up with Dr. Tomy Lomax who has the patient scheduled for a cholecystectomy on 20 August 2020. Patient reports that she did eat pizza for dinner tonight at approximately 1800. She complains of mild nausea with increasing epigastric pain. Patient reports no recent fever, chills, cough or other illness symptoms. She states that she did have a loose bowel movement prior to arrival tonight. Past Medical History: Diagnosis Date Herpes History of extracorporeal life support as a Past Surgical History: Procedure Laterality Date SHOULDER ARTHROSCOPY W/ LABRAL REPAIR Right slap tear WISDOM TOOTH EXTRACTION Family History Problem Relation Age of Onset BALDOMERO disease Maternal Grandfather Heart attack Maternal Grandfather Colon cancer Maternal Grandfather unknown age of onset Prostate cancer Maternal Grandfather unknown age of onset Social History Socioeconomic History Marital status: Single Spouse name: Not on file Number of children: Not on file Years of education: Not on file Highest education level: Not on file Occupational History Not on file Social Needs Financial resource strain: Not on file Food insecurity Worry: Not on file Inability: Not on file Transportation needs Medical: Not on file Non-medical: Not on file Tobacco Use Smoking status: Never Smoker Smokeless tobacco: Never Used Substance and Sexual Activity Alcohol use: Not Currently Drug use: Not Currently Sexual activity: Not on file Lifestyle Physical activity Days per week: Not on file Minutes per session: Not on file Stress: Not on file Relationships Social connections Talks on phone: Not on file Gets together: Not on file Attends gnosticism service: Not on file Active member of club or organization: Not on file Attends meetings of clubs or organizations: Not on file Relationship status: Not on file Other Topics Concern Not on file Social History Narrative Not on file Previous Medications Medication Sig acetaminophen (TYLENOL) 650 mg/20.3 mL Soln Take 20.3 mL (650 mg total) by mouth every 6 (six) hours as needed . multivitamin capsule Take 1 capsule by mouth daily Reasons: Flintstones. phenazopyridine (PYRIDIUM) 200 MG tablet Take 200 mg by mouth 3 (three) times a day as needed . traMADoL (ULTRAM) 50 mg tablet Take 1 (one) tablet (50 mg total) by mouth every 6 (six) hours as needed . Allergies Allergen Reactions Greenwald Nickel Review of Systems Constitutional: Negative. HENT: Negative. Eyes: Negative. Respiratory: Negative. Cardiovascular: Negative. Gastrointestinal: Positive for abdominal pain and nausea. Endocrine: Negative. Genitourinary: Negative. Musculoskeletal: Negative. Skin: Negative. Allergic/Immunologic: Negative. Neurological: Negative. Hematological: Negative. Psychiatric/Behavioral: Negative. Patient Vitals for the past 24 hrs: BP Temp Temp src Pulse Resp SpO2 Height Weight 08/01/20 2200 (!) 110/52 65 99 % 08/01/20 2130 117/65 61 99 % 08/01/202029 115/79 78 18 99 % 08/01/202007 (!) 141/63 98.1 F (36.7 C) Oral 70 18 100 % 5' 4 71.2 kg (157 lb) Physical Exam Vitals signs and nursing note reviewed. Constitutional: Appearance: She is well-developed and normal weight. HENT: Head: Normocephalic and atraumatic. Right Ear: External ear normal. Left Ear: External ear normal. Nose: Nose normal. Mouth/Throat: Mouth: Mucous membranes are moist. Pharynx: Oropharynx is clear. Eyes: General: Lids are normal. Conjunctiva/sclera: Conjunctivae normal. Pupils: Pupils are equal, round, and reactive to light. Neck: Musculoskeletal: Normal range of motion and neck supple. Cardiovascular: Rate and Rhythm: Normal rate and regular rhythm. Heart sounds: Normal heart sounds. Pulmonary: Effort: Pulmonary effort is normal. Breath sounds: Normal breath sounds. Abdominal: General: Abdomen is flat. Bowel sounds are normal. There is no distension. Palpations: Abdomen is soft. Tenderness: There is abdominal tenderness in the epigastric area. Negative signs include McBurney's sign and psoas sign. Musculoskeletal: Normal range of motion. Skin: General: Skin is warm and dry. Capillary Refill: Capillary refill takes less than 2 seconds. Neurological: General: No focal deficit present. Mental Status: She is alert and oriented to person, place, and time. Psychiatric: Mood and Affect: Mood normal. Behavior: Behavior normal. Thought Content: Thought content normal. Judgment: Judgment normal. Patient is awake, alert and oriented in no acute distress. Tenderness with palpation to the epigastrium. There is mild tenderness with palpation to the right upper quadrant. Abdomen is diffusely soft with no rigidity, guarding or rebound tenderness. There is no discrete right lower quadrant abdominal tenderness with light and deep palpation. Laboratory & Radiographic Imaging (if done): Results for orders placed or performed during the hospital encounter of 08/01/20 BMP Result Value Ref Range Sodium 140 135 - 145 mmol/L Potassium 3.8 3.5 - 5.1 mmol/L Chloride 107 98 - 108 mmol/L Bicarbonate 26 21 - 32 mmol/L Anion Gap 11 10 - 20 mmol/L Glucose 89 65 - 99 mg/dL BUN 13 8 - 25 mg/dL Creatinine 1.07 0.40 - 1.10 mg/dL eGFR 73 >=60 mL/min/1.73 m2 BUN/Creatinine Ratio 12.1 10.0 - 20.0 Calcium 8.9 8.4 - 10.2 mg/dL Hepatic Function Panel (LFT) Result Value Ref Range Total Protein 8.0 6.0 - 8.0 g/dL Albumin 3.9 3.2 - 5.2 g/dL Total Bilirubin 0.4 0.0 - 1.3 mg/dL Bilirubin, Direct 0.2 0.0 - 0.4 mg/dL Alkaline Phosphatase 290 (H) 40 - 140 U/L AST 30 0 - 45 U/L ALT 30 14 - 65 U/L Lipase Result Value Ref Range Lipase 3,000 (CH) 73 - 393 U/L Urinalysis Result Value Ref Range Color, Urine Yellow Colorless, Yellow Clarity, Urine Cloudy (A) Clear Specific [place] 1.025 1.005 - 1.025 pH, Urine 6.5 5.0 - 7.0 Protein, Urine Negative Negative mg/dL Glucose, Urine Negative Negative mg/dL Ketones, Urine Negative Negative mg/dL Bilirubin, Urine Negative Negative Urobilinogen, Urine <2.0 <2.0 mg/dL Blood, Urine Negative Negative Nitrite, Urine Negative Negative Leukocyte Esterase, Urine Large (A) Negative WBCs, Urine 43 (H) 0 - 5 /hpf Bacteria, Urine Rare (A) None Seen /hpf Squamous Epithelial 7 (H) 0 - 4 /hpf Mucus, Urine Rare None Seen, Rare /lpf HCG (QUALITATIVE) Result Value Ref Range Beta-hCG Qual Negative Negative CBC Auto Differential Result Value Ref Range WBC 6.95 4.50 - 11.00 K/mcL RBC 4.12 4.00 - 5.20 M/mcL Hemoglobin 9.8 (L) 12.0 - 16.0 g/dL Hematocrit 32.3 (L) 36.0 - 46.0 % MCV 78.4 (L) 80.0 - 100.0 fL MCH 23.8 (L) 26.0 - 34.0 pg MCHC 30.3 (L) 31.0 - 37.0 g/dL Platelets 367 150 - 400 K/mcL RDW - CV 15.3 (H) 11.6 - 14.8 % MPV 9.8 9.4 - 12.4 fL Neutrophils 68.2 % Lymphocytes 25.2 % Monocytes 5.5 % Eosinophils 0.7 % Basophils 0.3 % IG Percent 0.10 % Neutrophils Abs 4.74 1.70 - 7.00 K/mcL Lymphocytes Abs 1.75 0.90 - 4.00 K/mcL Monocytes Abs 0.38 0.30 - 0.90 K/mcL Eosinophils Abs 0.05 0.00 - 0.50 K/mcL Basophils Abs 0.02 0.00 - 0.30 K/mcL IG Absolute 0.01 0.00 - 0.30 K/mcL Nucleated RBC 0.0 % Nucleated RBC Abs 0.00 0.00 - 0.00 K/mcL No orders to display Procedures MDM Number of Diagnoses or Management Options Acute biliary pancreatitis, unspecified complication status Diagnosis management comments: Physical exam findings as noted above. Laboratory test results were reviewed and lipase greater than 3000 is noted. Urinalysis shows large leukocyte esterase with 43 WBC and urine culture was ordered. Patient denies dysuria, hematuria or suprapubic pain. General surgery [facility] was contacted and arrived in the emergency department to evaluate the patient. She states that both MRCP and CT scan abdomen/pelvis are not needed at this time and that the patient will be admitted to general med-surg by Dr. Navarrete. She states that Dr. Lomax will take over care of the patient tomorrow morning. Patient was placed in n.p.o. status. Patient received Dilaudid 1 mg IV and Zofran 4 mg IV with 1000 mL normal saline IV bolus. Patient is in agreement with the above plan of care and inpatient admission. Of note, patient did test positive for COVID-19 on 02 July 2020. CLINICAL IMPRESSION: Gallstone Pancreatitis Amount and/or Complexity of Data Reviewed Clinical lab tests: ordered and reviewed Discuss the patient with other providers: yes Patient Progress Patient progress: stable . . Clinical Impression: 1. Acute biliary pancreatitis, unspecified complication status ED Disposition ED Disposition Condition Comment Hospitalize Reason for inpatient over two midnights: gallstone pancreatitis Follow-up Information Follow-up information has not been specified. Contact information for after-discharge care Follow-up information has not been specified. Leti Olsen PA-C 08/01/202216 THIS RN ATTEMPTED IV START, VEIN BLEW, UNSUCCESSFUL Bed: 15 Expected date: Expected time: Means of arrival: Comments: NEXT PT documented in this encounter America Wu CNP - 08/01/2020 9:30 PM Tomy Montgomery MD - 08/20/2020 7:15 AM Tomy iRvera MD - 07/27/2020 9:42 AM EST H&P Notes (unrecognized sect ion and content) [facility] SURGICAL HISTORY & PHYSICAL/CONSULTATION NOTE Gallstone pancreatitis Assessment & Plan Sudden onset of epigastric and RUQ pain radiating to her back after eating pizza for dinner Abdomen soft, non-distended, tender to epigastric and RUQ; non-peritoneal Previous admission 07/23- CT and MRI demonstrating thickening GB with cholelithiasis, no choledocholithiasis Lipase 3000; alk phos 290; AST/ALT,Tbili, Dbili all WNL; cbc pending, afebrile Discussed case with Dr. Navarrete, no need for further imaging at this time given normal Tbili - Plan for admission, keep NPO, MIV, repeat labs in am, will need interval cholecystectomy CHIEF COMPLAINT: Abdominal pain HISTORY OF PRESENT ILLNESS / INJURY (HPI): [include Pain, Quality, Radiation, Severity, Duration, Timing] Ms. Crane is a 25 year old female with PMH significant for gallstone pancreatitis who is known to the surgery team. She was previously admitted on 07/23 for gallstone pancreatitis. Due to elevated LFTs and bilirubin she underwent MRCP which was negative for choledocholithiasis. Imaging did show a thickened gallbladder and cholelithiasis. She was subsequently discharged home on 07/24. At that time her pain resolved and she was tolerating diet. She followed up with Dr. Lomax on 07/27 and was schedule for laparoscopic cholecystectomy on 08/20. Today, she reports that she had one episode of epigastric pain for about 15 min that resolved on its own. She then ate pizza around 7:30 this evening and immediately started having epigastric and RUQ which radiates to her back. Pain was unrelenting so she presented to the ED. Pain 7/10, no aggravating or alleviating factors. She has not taken anything for the pain. She denies fever, chills, nausea or vomiting. Last bowel movement was today, she reports it was loose in consistency. PAST MEDICAL HISTORY (PMH): Medical history: Past Medical History: Diagnosis Date Herpes History of extracorporeal life support as a Gallstone pancreatitis -LMP (females only): No LMP recorded. Surgical history: Past Surgical History: Procedure Laterality Date SHOULDER ARTHROSCOPY W/ LABRAL REPAIR Right slap tear WISDOM TOOTH EXTRACTION Social history: -Place of residence (home, [facility], etc): Home -Tobacco use: Denies -EtOH use: Denies -Illicit drug use: Denies Family history: Family History Problem Relation Age of Onset BALDOMERO disease Maternal Grandfather Heart attack Maternal Grandfather Colon cancer Maternal Grandfather unknown age of onset Prostate cancer Maternal Grandfather unknown age of onset MEDICATIONS: Outpatient Medications as of 08/01/2020 Medication Sig acetaminophen (TYLENOL) 650 mg/20.3 mL Soln Take 20.3 mL (650 mg total) by mouth every 6 (six) hours as needed . multivitamin capsule Take 1 capsule by mouth daily Reasons: Flintstones. phenazopyridine (PYRIDIUM) 200 MG tablet Take 200 mg by mouth 3 (three) times a day as needed . traMADoL (ULTRAM) 50 mg tablet Take 1 (one) tablet (50 mg total) by mouth every 6 (six) hours as needed . ALLERGIES: Allergies Allergen Reactions Greenwald Nickel REVIEW OF SYSTEMS: [List positives and pertinent negatives] Constitutional Symptoms: Negative for unexplained falls, weight loss COVID19 Screen: Negative for fever, cough, SOB or exposure. Eyes: Negative for eye pain or vision changes Ears, Nose, Mouth, Throat: Negative for rhinorrhea, nasal pain, dysphagia, hoarseness Cardiovascular: Negative for chest pain, orthopnea, edema Respiratory: Negative for cough, shortness of breath Gastrointestinal: Positive for abdominal pain, one episode diarrhea, negative for nausea, vomiting, Genitourinary: Negative for dysuria, hematuria Musculoskeletal: Negative for pain, joint edema Skin/Breast: Negative for rash, itching, lesions Neurological: Negative for paresthesia, paralysis, loss of bowel or bladder control, loss of consciousness Psychiatric: Negative for depression, anxiety, or suicidal ideations Endocrine: Negative for heat/cold intolerance, polydipsia, polyphagia, polyuria Hematologic/Lymphatic: Negative for anticoagulant use, antiplatelet use, family hx of clotting or bleeding disorders Allergic/Immunologic: Allergies reviewed, no use of immunosuppressants or active chemotherapy Other than the above items, the remainder of a complete review of systems is otherwise negative. [must have at least one positive or negative to validate this statement] PHYSICAL EXAM: Blood pressure 115/79, pulse 78, temperature 98.1 F (36.7 C), temperature source Oral, resp. rate 18, height 5' 4 , weight 71.2 kg (157 lb), SpO2 99 %, currently . Body mass index is 26.95 kg/m . GENERAL: Appears age appropriate. No acute distress. NEUROLOGICAL: Alert and oriented X 3. Follows commands with extremities x4, equal strength. EYES/EARS/NOSE/MOUTH/THROAT: Conjunctivae/sclerae/corneas clear. Ears: External ear normal. Hearing within normal limits for patient. No drainage. Nose: nares normalNeck: supple, symmetrical, trachea midline. CARDIOVASCULAR: Regular rate and rhythm. No peripheral edema noted. 2+ pulses radial/DP/PT bilaterally. RESPIRATORY: Lungs, clear to auscultation bilaterally. No rhonchi, wheezes or crackles. Respiratory effort unlabored without use of accessory muscles. ABDOMINAL: Rounded, soft, tender to palpation RUQ and epigastric region, nondistended, normal bowel sounds. No guarding or peritoneal signs. GENITOURINARY: Voiding without difficulty. No dysuria or retention. No gross hematuria. MUSCULOSKELETAL: Extremities atraumatic without gross deformity x4. ROM appropriate for age. No clubbing, cyanosis or joint edema. SKIN: Skin warm and dry. Normal turgor. No rashes or lesions. IMAGING STUDIES: No new imaging LABORATORY STUDIES: Lab Results Component Value Date WBC 4.22 (L) 07/24/2020 HGB 8.2 (L) 07/24/2020 HCT 28.8 (L) 07/24/2020 MCV 82.1 07/24/2020 PLT 425 (H) 07/24/2020 RBC 3.51 (L) 07/24/2020 Lab Results Component Value Date GLUCOSE 89 08/01/2020 CALCIUM 8.9 08/01/2020 NA 140 08/01/2020 K 3.8 08/01/2020 CL 107 08/01/2020 BUN 13 08/01/2020 CREATININE 1.07 08/01/2020 Lab Results Component Value Date ALT 30 08/01/2020 AST 30 08/01/2020 ALKPHOS 290 (H) 08/01/2020 BILITOT 0.4 08/01/2020 documented in this encounter INTERVAL HISTORY AND PHYSICAL Patient Name: Sussy Crane Admit Date: [id number] MR #: [id number] : 1995 The H&P has been reviewed and the patient has been examined. I concur with the findings of the H&P. There are no significant changes. It is appropriate to proceed with the planned procedure. Tomy Lomax MD 08/20/2020 7:15 AM [facility] PATIENT: Sussy Crane DATE / TIME: 07/27/20 9:42 AM POS: Office AGE: 25 y.o. : 1995 RACE: [1] SEX: female PCP: Physician No REFERRAL: No ref. provider found HISTORY OF PRESENT ILLNESS CC / Reason for Consult: Abdominal pain, abnormal LFTs, symptomatic cholelithiasis HPI: 25-year-old female recently presents after 2 episodes of significant abdominal pain, nausea and vomiting. Was seen in an area emergency room where she was noted to have an elevated lipase, abnormal LFTs and evidence of gallstones on CT imaging. Because of the LFT derangements she underwent an MRCP that was negative for any choledocholithiasis. All of her imaging though reveals a contracted and thickened gallbladder wall with multiple small stones present within the lumen. She describes episodes of significant epigastric pain with associated nausea and a few episodes of emesis. Both episodes were triggered by eating fast food meals. Her past medical history is interesting that she appears to have been on ECMO as a infant. Her knowledge of the medical history of these events is very limited. 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 When pressed on specific details perhaps regarding a diaphragmatic hernia or other reasons of poor pulmonary development she is uncertain of the details. She is adamant though that she does not believe she had any additional abdominal surgery as an PAST MEDICAL / SURGICAL HISTORY Past Medical History: Diagnosis Date Herpes History of extracorporeal life support as a Past Surgical History: Procedure Laterality Date SHOULDER ARTHROSCOPY W/ LABRAL REPAIR Right slap tear WISDOM TOOTH EXTRACTION FAMILY HISTORY No family history on file. SOCIAL HISTORY Data Unavailable Social History Tobacco Use Smoking Status Never Smoker Smokeless Tobacco Never Used Social History Substance and Sexual Activity Alcohol Use Not Currently Social History Substance and Sexual Activity Drug Use Not Currently MEDICATIONS: Patient has a current medication list which includes the following prescription(s): acetaminophen, multivitamin, phenazopyridine, and tramadol. ALLERGIES: Allergies Allergen Reactions Greenwald Nickel REVIEW OF SYSTEMS Pertinent positives and negatives are listed in HPI, PMSH, SH, ALL above and in Details below. The following systems were reviewed: [] Const (fevers, chills, wt. loss, fatigue) [] CV (HTN, CP, CESPEDES, edema, DVT) [] Resp (SOB, pleurisy, asthma, apnea) [] GI (N, V, D, C, M, abd pain, appetite) [] Musc (back pain, joint stiffness, gout) [] Neuro (seizures, syncope, paralysis) [] Psych (depression, anxiety) [] Endo (hot/cold intol, polyuria[DM]) [] Hem/Lymph (Anemia, LA, bleeding) [] Allerg/Immun (seasonal, immuniz) [] Eyes (diplopia, cataracts) [] ENT/mouth (dysphagia, epistaxis) [] (dysuria, hematuria) [] Skin/Breast (moles, rash, lumps, nipple changes) Details: PHYSICAL EXAM BP 101/70 Pulse 86 Resp 14 Ht 5' 4 Wt 71.2 kg (157 lb) SpO2 95% BMI 26.95 kg/m Details: Physical Exam Constitutional: Appearance: Normal appearance. HENT: Head: Normocephalic. Nose: Nose normal. Eyes: General: No scleral icterus. Pupils: Pupils are equal, round, and reactive to light. Neck: Musculoskeletal: Normal range of motion. Cardiovascular: Rate and Rhythm: Normal rate. Pulmonary: Effort: Pulmonary effort is normal. Abdominal: General: Bowel sounds are normal. There is no distension. Palpations: Abdomen is soft. Musculoskeletal: Normal range of motion. Skin: General: Skin is warm. Coloration: Skin is not jaundiced. Findings: No bruising. Neurological: General: No focal deficit present. Mental Status: She is alert. Psychiatric: Mood and Affect: Mood normal. Thought Content: Thought content normal. Judgment: Judgment normal. LABS / X-RAYS Details: Laboratory Lab Results Component Value Date WBC 4.22 (L) 07/24/2020 RBC 3.51 (L) 07/24/2020 HGB 8.2 (L) 07/24/2020 HCT 28.8 (L) 07/24/2020 PLT 425 (H) 07/24/2020 No results found for: AMYLASE No results found for: LIPASE Comprehensive metabolic panel 07/23/2020 Lipase 399 Alk phos 841 AST 225, ALT [address] abdomen pelvis 07/21/2020 FINDINGS: Lung bases are clear. Solid upper abdominal organs demonstrate no acute abnormalities on this limited noncontrast study. No adrenal mass or adenopathy. No evidence of nephrolithiasis or obstructive uropathy. The gallbladder is decompressed and does contain stones. There is no imaging evidence of biliary or pancreatic ductal dilatation. Aorta is normal caliber. No bowel obstruction or inflammation. No pneumatosis or pneumoperitoneum. Normal appendix. No pelvic adenopathy or ascites. Uterus is grossly normal size for age, not assessed in detail on this modality. Bladder is completely decompressed. No suspicious lytic or sclerotic osseous lesions. IMPRESSION: 1. Cholelithiasis. 2. No acute abnormality. MRCP 07/23/2020 IMPRESSION: 1. No evidence of biliary ductal dilatation. No convincing evidence of choledocholithiasis allowing for limited visualization of the distal common bile duct. 2. Cholelithiasis with numerous small stones in the gallbladder. Gallbladder is collapsed with prominent wall thickening, and there is a suggestion of mild periportal edema. This pattern is not specific but may be seen in the setting of hepatitis. Please correlate with liver function studies. 3. Mild hepatosplenomegaly. Scattered tiny hepatic cysts. ASSESSMENT AND PLAN: Patient Active Problem List Diagnosis 39 weeks gestation of Gallstone pancreatitis Symptomatic cholelithiasis Abdominal pain Abnormal LFTs 25-year-old female with past medical history of ECMO support as a but no other surgical or medical history presenting with episodic abdominal pain, biliary colic, symptomatic cholelithiasis -Risks and complications of laparoscopic possible open cholecystectomy were discussed with the patient. I did discuss with her my concern that on imaging both CT and MRI her gallbladder is quite thickened, contracted with several small stones. This may require conversion to open in order to better delineate her anatomy and avoid iatrogenic injury. We will plan to repeat her LFTs preoperatively in order to assess trend. 1. Symptomatic cholelithiasis 2. Abdominal pain, unspecified abdominal location 3. Abnormal LFTs Total time 35 minutes, greater than 50% was spent [id number] with the patient obtaining a history, performing exam, reviewing imaging, describing the procedure, obtaining consent and coordinating care. Anticip Anesthesia: Follow-up: ICD: Symptomatic cholelithiasis [K80.20] [] Thank you for the privilege of allowing me to participate in the care of Sussy Crane. documented in this encounter Quick Note - Jonna Ha RN - 08/02/2020 11:42 AM ESTPlan of Care - Yaneli Cardozo RN - 08/02/2020 2:02 AM ESTED Attestation Note - Manuel Trujillo MD - 08/01/2020 11:29 PM EST Miscellaneous Notes (unrecog nized section and content) Pt provided discharge teaching about low fat diet, medications and surgery being postponed to August 20. Pt indicates understanding to teaching. Peripheral IV to right upper arm removed and dressing applied. Pt was transported by wheelchair to [facility] and transported privately by her mother. Problem: Actual or potential alteration in health Goal: Absence of healthcare acquired conditions Outcome: Partially Met Goal: Knowledge of Interdisciplinary Plan of Care Outcome: Partially Met Goal: Knowledge of Enviroment Outcome: Partially Met Problem: Actual or potential alteration in health Goal: Knowledge of Interdisciplinary Plan of Care Outcome: Partially Met Problem: Actual or potential alteration in health Goal: Knowledge of Enviroment Outcome: Partially Met Problem: Pain Goal: Manage acute pain Outcome: Partially Met Goal: Manage chronic pain Outcome: Partially Met Goal: Reduced pain sensation Outcome: Partially Met Goal: Achievement of comfort function goal Outcome: Partially Met Patient was seen and evaluated by myself. Patient presented to the emergency department for reason of abdominal pain. Physical examination: Abdomen: Soft, diffusely tender. Diagnostic impression: Acute biliary pancreatitis Plan: Admit to surgery. Associated Problem(s): Gallstone pancreatitis Sudden onset of epigastric and RUQ pain radiating to her back after eating pizza for dinner Previous admission Lipase 3000, AST/ALT WNL, cbc pending Plan for admission, keep NPO, will nee documented in this encounter Brief Post Operative Note Patient Name: Sussy Crane : 1995 (25 y.o.) Date of Service: 08/20/2020 CSN: [id number] Procedure(s): CHOLECYSTECTOMY LAPAROSCOPIC Pre-Operative Diagnoses: * Symptomatic cholelithiasis [K80.20] Abdominal pain, unspecified abdominal location [R10.9] Abnormal LFTs [R94.5] Post-Operative Diagnoses: * Symptomatic cholelithiasis [K80.20] * Abdominal pain, unspecified abdominal location [R10.9] * Abnormal LFTs [R94.5] Surgeon(s) and Role: * Tomy Lomax MD - Primary Anesthesiologist: Eagle Mcneill MD DENTAL SCHEDULER: Lien Bauman CRNA Director Of Casino Marketing Orientee: Radha Veras RN Director Of Casino Marketing Preceptor: Emy Teran RN Scrub Person Preceptor: Ary Martins LPN Scrub Person Orientee: Michael Graham RN GEAR CHANGER: Briseyda Calvert RN Operative findings: Noninflamed gallbladder with cholelithiasis Intra and immediate post-operative complications: None Type of anesthesia used: General Estimated blood loss: 5 mL Estimated urine output: Refer to surgical log Specimen(s): ID Type Source Tests Collected by Time Destination A : Tissue Gallbladder TISSUE EXAM Tomy Lomax MD 08/20/2020 0805 Implant(s): * No implants in log * Drain(s): * No LDAs found * Wound(s): Wound 08/20/20 Surgical Wound Abdomen (Active) Tomy Lomax MD 08/20/2020 8:28 AM OPERATIVE REPORT DATE OF SURGERY: 08/20/2020 SURGEON: Tomy Lomax MD AERONAUTICAL RESEARCH ENGINEER(S): None PREOPERATIVE DIAGNOSIS: Cholelithiasis w/o obstruction. Abdominal pain. History of gallstone pancreatitis POSTOPERATIVE DIAGNOSIS: Cholelithiasis w/o obstruction. Abdominal pain. History of gallstone pancreatitis OPERATION: Laparoscopic cholecystectomy. ANESTHESIA: General endotracheal anesthesia. ESTIMATED BLOOD LOSS: 5 mL IV FLUIDS: See anesthesia report mL crystalloid SPECIMENS: Gallbladder and contents to Pathology. DRAINS: None. FINDINGS: Noninflamed gallbladder with stones INDICATIONS FOR SURGERY: Sussy Crane is a 25 y.o. female with a few month history of midepigastric region abdominal pain. The patient was evaluated with CT scan that showed cholelithiasis with no signs of cholecystitis. She was sent for a surgical consultation. A complete history and physical were done. Evaluation and findings were consistent with the pre-operative diagnosis. The patient was counseled on treatment options, including the risks of surgery. She elected to proceed and signed informed consent. DESCRIPTION OF PROCEDURE: The patient was taken to the operating room and placed in the supine position on the OR table. Sequential compression stockings were placed on both legs. General anesthesia and periop antibiotics were administered. The patient's abdomen was prepped with ChloraPrep and draped to create a sterile field. A time-out was performed. All incision sites were injected with local anesthetic. The skin and fascia near the umbilicus were incised. The Natasha port was secured to fascia with interrupted 0-vicryl and pneumoperitoneum established. The right upper quadrant was inspected. Three additional 5 mm trocars were placed in the epigastrium, right subcostal and anterior axillary positions. Traction was placed on the fundus of the gallbladder cranially. The infundibulum was retracted laterally. The lower 1/3 of the gallbladder was dissected from the surrounding sructures. The cystic duct and artery were dissected free from surrounding structures. The critical view was achieved. The duct and artery were clipped and divided, leaving 2 clips on the duct and 2 on the arterial stump. Cautery was used to remove the gallbladder from the liver bed in a hemostatic fashion. Once freed, the gallbladder was placed in a retrieval bag and removed through the Natasha port site. The gallbladder fossa and portal area were inspected. There was excellent hemostasis. There were no apparent injuries to the adjacent anatomy. The clips were in good position without active bleeding or leakage of bile. The liver was returned to its normal position. The hepatic gutter was irrigated and suctioned. The 5 mm trocars were removed without muscular bleeding noted from the inside. After confirming no problems with a 360 degree survey of the abdomen, the camera was withdrawn. The camera port was removed, reducing the pneumoperitoneum. The fascia at the Natasha site was closed using interrupted 0- Vicryl sutures. The fascia was palpated to confirm closure. Additional anesthetic was injected at the trocar sites. The skin at each incision was closed using 4-0 Monocryl and glue. All instrument and sponge counts were correct at the end of the case. The patient tolerated the procedure well. She was awakened, extubated and taken to the PACU in good condition. The patient was allowed to return home on the day of surgery, given prescriptions for narcotic pain medicine and stool softener, and asked to follow up as previously instructed. documented in this encounter Ordered Prescriptions (unrec ognized section and content) Prescription Sig Dispensed Refills Start Date End Da te ondansetron (ZOFRAN-ODT) 4 MG disintegrating tablet Take 1 tablet by mouth 3 times daily as needed for Nausea or Vomiting 10 tablet 0 08/19/2020 Prescription Sig Dispensed Refills Start Date End Da te cyclobenzaprine (FLEXERIL) 10 MG tablet Take 1 tablet by mouth 3 times daily as needed for Muscle spasms 15 tablet 0 11/13/2021 11/28/2021 naproxen sodium (ANAPROX DS) 550 MG tablet Take 1 tablet by mouth 2 times daily (with meals) 20 tablet 0 11/13/2021 Prescription Sig Dispensed Refills Start Date End Da te naproxen (NAPROSYN) 500 MG tablet Take 1 tablet by mouth 2 times daily as needed for Pain 10 tablet 0 01/13/2022 Prescription Sig Dispensed Refills Start Date End Da te lidocaine (LIDODERM) 5 % Place 1 patch onto the skin daily 12 hours on, 12 hours off. 30 patch 0 08/20/2022 ketorolac (TORADOL) 10 MG tablet Take 1 tablet by mouth every 6 hours as needed for Pain 20 tablet 0 08/20/2022 Prescription Sig Dispensed Refills Start Date End Da te predniSONE (DELTASONE) 20 MG tablet Take 2 tablets by mouth daily for 5 days 10 tablet 0 08/26/2022 08/31/2022 Susy Buckner RN - 08/20/2020 11:36 AM Susy Butler RN - 08/20/2020 10:31 AM Susy Btuler RN - 08/20/2020 10:27 AM EDT Nursing Notes (unrecognized section and content) Fully dressed awaiting ride home Mother here cartside Discharge instructions reviewed with patient. AVS provided, ice pack provided. All questions answered to patient satisfaction. documented in this encounter Scheduled Active and Recently Administ ered Medications (unrecognized section and content) Medication Order 10/25/2020 10/26/2020 10/27/2020 morphine syringe 4 mg (COMPLETED) 4 mg, Intravenous, Once, On Mon10/27/20 at 0240, For 1 dose 0403 (Given - Provid er: Liza Ferris RN) ondansetron (ZOFRAN) injection 4 mg (COMPLETED) 4 mg, Intravenous, Once, On Mon10/27/20 at 0240, For 1 dose 0403 (Given - Provid er: Liza Ferris RN) sodium chloride 0.9% (NS) bolus 1,000 mL (COMPLETED) 1,000 mL, Intravenous, at 1,000 mL/hr, Once, On Mon10/27/20 at 0240, For 1 dose 0401 (New Bag - Prov ider: Liza Ferris RN)0501 (Stopped - Provider: Shantel Ward, EMELIA) PRN Medication Order 10/25/2020 10/26/2020 10/27/2020 iopamidoL (ISOVUE-370) 76 % injection 75 mL (COMPLETED) 75 mL, Intravenous, Once in imaging, contrast, Per cracker dough mixer (Radiology), Starting on Mon10/27/20 at 0234, For 1 dose 0449 (Contrast Admin istered - Provider: Emy Jacobsen, TECHNOLOGIST) sodium chloride (PF) (NS) 0.9 % contrast line flush 10 mL (COMPLETED) 10 mL, Intravenous, Once in imaging, contrast, Per cracker dough mixer (Radiology) for line patency check prior to contrast administration, Starting on Mon10/27/20 at 0234, For 1 dose 0450 (Given - Provid er: Emy Jacobsen, TECHNOLOGIST) sodium chloride (PF) (NS) 0.9 % contrast line flush 80 mL (COMPLETED) 80 mL, Intravenous, Once in imaging, contrast, Per cracker dough mixer (Radiology), Starting on e 10/27/20 at 0234, For 1 dose, 30 mL BEFORE contrast administration 50 mL AFTER contrast administration 0449 (Given - Provid er: Emy Jacobsen, TECHNOLOGIST) sodium chloride (PF) (NS) flush 5 mL(Linked Group 1) 5 mL, Intravenous, As needed, line care, Starting on Mon10/27/20 at 0233 sodium chloride 0.9% (NS)(Linked Group 1) 0-150 mL/hr, Intravenous, As needed, To flush line after IV infusions when no maintenance IV ordered or a compatibility issue. Infuse 20ml at the same rate as the secondary infusion, Starting on Mon10/27/20 at 0233, Run as Primary IV. NOT intended for KVO. Linked Groups Order Group 1: Insert peripheral IV (COMPLETED) MAURILIO, Once, On Mon10/27/20 at 0234, For 1 occurrence And Saline lock IV (CANCELED) MAURILIO, Once, On Mon10/27/20 at 0234, For 1 occurrence And sodium chloride (PF) (NS) flush 5 mLJump to med 5 mL, Intravenous, As needed, line care, Starting on Mon10/27/20 at 0233 And sodium chloride 0.9% (NS)Jump to med 0-150 mL/hr, Intravenous, As needed, To flush line after IV infusions when no maintenance IV ordered or a compatibility issue. Infuse 20ml at the same rate as the secondary infusion, Starting on Mon10/27/20 at 0233
Run as Primary IV. NOT intended for KVO.
Scheduled Medication Order 08/01/2021 08/02/2021 08/03/2021 cephALEXin (KEFLEX) capsule 1,000 mg (COMPLETED) 1,000 mg, Oral, ONCE, 1 dose, On 08/03/21 at 0245 0217 (Given - Provid er: Neeta Kilpatrick RN) Scheduled Medication Order 01/12/2022 01/13/2022 01/14/2022 0.9 % sodium chloride bolus (COMPLETED) 1,000 mL (14.7 mL/kg), IntraVENous, at 495.9 mL/hr, Administer over 121 Minutes, ONCE, On Nidhi 01/13/22 at 2350, For 1 dose 0043 (New Bag - Prov ider: Alma Simms RN)0217 (Stopped - Provider: Williams Linares RN) ketorolac (TORADOL) injection 15 mg Ketorolac is contraindicated in patients with advanced renal impairment and in patients at risk of renal failure due to volume depletion. For 65 years of age and older OR weight less than 50 kg, use 15 mg IV every 6 hours; MAX dose: 60 mg/day. Dose greater than 30 mg must be administered via intramuscular route. Do not administer for more than 5 days., 15 mg, IntraVENous, ONCE, 1 dose, On Nidhi 01/13/22 at 2341, Do not administer for more than 5 days. 0045 (Held - Provide r: Alma Simms RN - Reason: Patient/family refused) Scheduled Medication Order 08/10/2022 08/11/2022 08/12/2022 ceFAZolin (ANCEF) 2 g in dextrose 100 mL premix IVPB (COMPLETED) 2 g, Intravenous, Administer over 30 Minutes, ONCE, 1 dose, On Mon08/12/22 at 0815, 1 hour before surgical incision., Pre-op/Pre-Proc 1133 (Given - Provid er: IBIS Jenkins) Continuous Medication Order 08/10/2022 08/11/2022 08/12/2022 Lactated ringers IV solution Intravenous, at 125 mL/hr, CONTINUOUS, Starting on Mon08/12/22 at 0815, Until Mon08/12/22 at 1859, Pre-op/Pre-Proc 0908 ($$New Bag$$ - Provider: Sima Ac RN)1145 ($$New Bag$$ - Provider: IBIS Jenkins)1500 ($$New Bag$$ - Provider: Anayeli Corbin RN)1640 (Stopped - Provider: Anayeli Corbin RN) PRN Medication Order 08/10/2022 08/11/2022 08/12/2022 Bupivacaine (PF) (MARCAINE) 0.25 % injection NEEDED, Starting on Mon08/12/22 at 1210, Until Mon08/12/22 at 1859, Intra-op/Intra-Proc 1210 (Given - Provid er: Pascual Zuniga MD - Comment: given to sterile field) HYDROmorphone (DILAUDID) injection 0.5 mg 0.5 mg, Intravenous, EVERY 10 MINUTES NEEDED, 4 doses, Starting on Mon08/12/22 at 1329, Until Mon08/12/22 at 1859, Other, VAS over 310, Hold for RR less than 12 VAS over 310, Recovery lidocaine-epinephrine 1%-1:261911 injection NEEDED, Starting on Mon08/12/22 at 1211, Until Mon08/12/22 at 1859, Intra-op/Intra-Proc 1211 (Given - Provid er: Pascual Zuniga MD - Comment: given to sterile field) oxyCODONE-acetaminophen (PERCOCET) 5-325 MG per tablet 1-2 tablet 1-2 tablet, Oral, EVERY 4 HOURS NEEDED, Starting on Mon08/12/22 at 1338, Until Mon08/12/22 at 1859, Severe Pain, pain, May repeat in 1 hour prn pain when tolerating clear liquids. 1412 (Given - Provid er: Anayeli Corbin RN) Sterile water irrigation NEEDED, Starting on Mon08/12/22 at 1204, Until Mon08/12/22 at 1859, Intra-op/Intra-Proc 1204 (Given - Provid er: Pascual Zuniga MD - Comment: given to sterile field) Scheduled Medication Order 08/18/2022 08/19/2022 08/20/2022 0.9 % sodium chloride bolus (COMPLETED) 1,000 mL (13 mL/kg), IntraVENous, at 495.9 mL/hr, Administer over 121 Minutes, ONCE, On 08/20/22 at 1753, For 1 dose 1824 (New Bag - Prov ider: Dennis Rivera RN)2021 (Stopped - Provider: Dennis Rivera RN) ketorolac (TORADOL) injection 15 mg (COMPLETED) 15 mg, IntraVENous, ONCE, 1 dose, On 08/20/22 at 1753, Do not administer for more than 5 days. 1826 (Given - Provid er: Dennis Rivera RN) ondansetron (ZOFRAN) injection 4 mg (COMPLETED) 4 mg, IntraVENous, ONCE, 1 dose, On 08/20/22 at 1753 1826 (Given - Provid er: Dennis Rivera RN) PRN Medication Order 08/18/2022 08/19/2022 08/20/2022 iopamidol (ISOVUE-300) 61 % injection 50 mL (COMPLETED) 50 mL, IntraVENous, IMG ONCE PRN, 1 dose, Starting on 08/20/22 at 1841, Until 08/20/22 at 1851, Other 1851 (Given - Provid er: Jack Bahena) Scheduled Medication Order 08/24/2022 08/25/2022 08/26/2022 diphenhydrAMINE (BENADRYL) injection 50 mg (COMPLETED) 50 mg, IntraVENous, ONCE, 1 dose, On Mon08/26/22 at 1215 1246 (Given - Provid er: Josh Edwards RN) famotidine (PEPCID) 20 mg in sodium chloride (PF) 0.9 % 10 mL injection (COMPLETED) 20 mg, IntraVENous, ONCE, 1 dose, On Mon08/26/22 at 1215, IV Push over minimum of 2 minutes - Dilute with 10 mL NS 1250 (Given - Provid er: Josh Edwards RN) methylPREDNISolone sodium (SOLU-MEDROL) injection 125 mg (COMPLETED) 125 mg, IntraVENous, ONCE, On Mon08/26/22 at 1215, For 1 dose 1244 (Given - Provid er: Josh Edwards RN) <item><item><item><item><item><item><item> Privacy Markings (unrecogniz ed section and content) Section Author: Theresa eL PROHIBITION ON REDISCLOSURE OF CONFIDENTIAL INFORMATION This notice accompanies a disclosure of information concerning a client made to you with the consent of such client. Section Author: Theresa Le PROHIBITION ON REDISCLOSURE OF CONFIDENTIAL INFORMATION This notice accompanies a disclosure of information concerning a client made to you with the consent of such client. Section Author: Theresa Le PROHIBITION ON REDISCLOSURE OF CONFIDENTIAL INFORMATION This notice accompanies a disclosure of information concerning a client made to you with the consent of such client. Section Author: Theresa Le PROHIBITION ON REDISCLOSURE OF CONFIDENTIAL INFORMATION This notice accompanies a disclosure of information concerning a client made to you with the consent of such client. Section Author: Theresa Le PROHIBITION ON REDISCLOSURE OF CONFIDENTIAL INFORMATION This notice accompanies a disclosure of information concerning a client made to you with the consent of such client. Section Author: Theresa Le PROHIBITION ON REDISCLOSURE OF CONFIDENTIAL INFORMATION This notice accompanies a disclosure of information concerning a client made to you with the consent of such client. Section Author: Theresa Le PROHIBITION ON REDISCLOSURE OF CONFIDENTIAL INFORMATION This notice accompanies a disclosure of information concerning a client made to you with the consent of such client. Care Teams (unrecognized sec tion and content) Spray Maker Relationship Specialty Start Date End Date Bryce Wise, [address] [place] [address] PCP - General 01/27/18 Spray Maker Relationship Specialty Start Date End Date Bryce Wise NoahDO PCP - General Family Medicine 11/29/17 Spray Maker Relationship Specialty Start Date End Date Bryce Wise DO PCP - General Family Medicine 11/29/17 Spray Maker Relationship Specialty Start Date End Date Bryce Wise DO [address] [place] [address] PCP - General 01/27/18 Spray Maker Relationship Specialty Start Date End Date Bryce Wise, DO [address] [place] [address] PCP - General 01/27/18 Spray Maker Relationship Specialty Start Date End Date Bryce Wise DO PCP - General Family Medicine 11/29/17 Spray Maker Relationship Specialty Start Date End Date Bryce Wise DO PCP - General Family Medicine 11/29/17 Spray Maker Relationship Specialty [place] [address] [place] [address] PCP - General 11/10/20 [place] [address] [place] [address] [facility] 04/28/22 Spray Maker Relationship Specialty [place] [address] [place] [address] PCP - General 11/10/20 [place] [address] [place] [address] [facility] 04/28/22 Spray Maker Relationship Specialty Start [place] [address] [place] [address] PCP - General Family Medicine 08/01/23 Spray Maker Relationship Specialty Start [place] [address] [place] [address] PCP - General Family Medicine 08/01/23 Spray Maker Relationship Specialty [place] [address] [place] [address] PCP - General Family Medicine 08/01/23 Spray Maker Relationship Specialty [place] [address] [place] [address] PCP - General Family Medicine 08/01/23 Spray Maker Relationship Specialty [place] [address] [place] [address] PCP - General Family Medicine 08/01/23 Team Status: Active Member Role Status Dates PHYSICIAN NO FAMILY Primary Care Provider Active Team Status: Inactive Member Role Status Dates Esther Miranda APRN Attending Provider Active Start: February 09, 2024 End: February 09, 2024 PHYSICIAN NO FAMILY Primary Care Provider Active Start: February 09, 2024 End: February 09, 2024 Team Status: Inactive Member Role Status Dates PHYSICIAN NO FAMILY Primary Care Provider Active Start: March 31, 2024 End: March 31, 2024 Esther Miranda - Yumiko , [employer] MANAGER-C Active Start: March 31, 2024 End: March 31, 2024 Esther Miranda APRN Attending Provider Active Start: March 31, 2024 End: March 31, 2024 Spray Maker Relationship Specialty [place] [address] [place] [address] PCP - General 11/10/20 Spray Maker Relationship Specialty [place] [address] [place] [address] PCP - General 11/10/20 Source Comments (unrecognize d section and content) In the event this informatio n is protected by the Federal Confidentiality of Alcohol and Drug Abuse Patient Records regulations: The Federal rules restrict any use of the information to criminally investigate or prosecute any alcohol or drug abuse patient.[facility] the event this information is protected by the Federal Confidentiality of Alcohol and Drug Abuse Patient Records regulations: The Federal rules restrict any use of the information to criminally investigate or prosecute any alcohol or drug abuse patient.[facility] the event this information is protected by the Federal Confidentiality of Alcohol and Drug Abuse Patient Records regulations: The Federal rules restrict any use of the information to criminally investigate or prosecute any alcohol or drug abuse patient.[facility] the event this information is protected by the Federal Confidentiality of Alcohol and Drug Abuse Patient Records regulations: The Federal rules restrict any use of the information to criminally investigate or prosecute any alcohol or drug abuse patient.[facility] the event this information is protected by the Federal Confidentiality of Alcohol and Drug Abuse Patient Records regulations: The Federal rules restrict any use of the information to criminally investigate or prosecute any alcohol or drug abuse patient.[facility] the event this information is protected by the Federal Confidentiality of Alcohol and Drug Abuse Patient Records regulations: The Federal rules restrict any use of the information to criminally investigate or prosecute any alcohol or drug abuse patient.[facility] the event this information is protected by the Federal Confidentiality of Alcohol and Drug Abuse Patient Records regulations: The Federal rules restrict any use of the information to criminally investigate or prosecute any alcohol or drug abuse patient.[facility] the event this information is protected by the Federal Confidentiality of Alcohol and Drug Abuse Patient Records regulations: The Federal rules restrict any use of the information to criminally investigate or prosecute any alcohol or drug abuse patient.[facility] the event this information is protected by the Federal Confidentiality of Alcohol and Drug Abuse Patient Records regulations: The Federal rules restrict any use of the information to criminally investigate or prosecute any alcohol or drug abuse patient.[facility] the event this information is protected by the Federal Confidentiality of Alcohol and Drug Abuse Patient Records regulations: The Federal rules restrict any use of the information to criminally investigate or prosecute any alcohol or drug abuse patient.[facility] the event this information is protected by the Federal Confidentiality of Alcohol and Drug Abuse Patient Records regulations: The Federal rules restrict any use of the information to criminally investigate or prosecute any alcohol or drug abuse patient.[facility] the event this information is protected by the Federal Confidentiality of Alcohol and Drug Abuse Patient Records regulations: The Federal rules restrict any use of the information to criminally investigate or prosecute any alcohol or drug abuse patient.[facility] the event this information is protected by the Federal Confidentiality of Alcohol and Drug Abuse Patient Records regulations: The Federal rules restrict any use of the information to criminally investigate or prosecute any alcohol or drug abuse patient.[facility] the event this information is protected by the Federal Confidentiality of Alcohol and Drug Abuse Patient Records regulations: The Federal rules restrict any use of the information to criminally investigate or prosecute any alcohol or drug abuse patient.[facility] the event this information is protected by the Federal Confidentiality of Alcohol and Drug Abuse Patient Records regulations: The Federal rules restrict any use of the information to criminally investigate or prosecute any alcohol or drug abuse patient.[facility] Inactive Administered Medications - up to 3 most recent administrations Administered Medications (un recognized section and content) Medication Order MAR Action Action Date Dose Rate Site lidocaine (PF) 10 mg/mL (1 %) 5 mL injection (XYLOCAINE) 5 mL, Injection - FOR ORTHO USE ONLY, ONCE, 1 dose, Starting on 08/08/23 at 1204, Until 08/08/23 at 1204 Given 08/08/2023 12:04 PM EDT 5 mL lidocaine (PF) 10 mg/mL (1 %) 8 mL injection (XYLOCAINE) 8 mL, Injection - FOR ORTHO USE ONLY, ONCE, 1 dose, Starting on 08/08/23 at 1204, Until 08/08/23 at 1204 Given 08/08/2023 12:04 PM EDT 8 mL Shoulder, Right ROPivacaine (PF) 5 mg/mL (0.5 %) 4 mL injection (NAROPIN) 4 mL, Injection - FOR ORTHO USE ONLY, ONCE, 1 dose, Starting on 08/08/23 at 1204, Until 08/08/23 at 1204 Given 08/08/2023 12:04 PM EDT 4 mL Shoulder, Right sterile water 5 mL injection 5 mL, Injection - FOR ORTHO USE ONLY, ONCE, 1 dose, Starting on 08/08/23 at 1204, Until 08/08/23 at 1204 Given 08/08/2023 12:04 PM EDT 5 mL Shoulder, Right triamcinolone acetonide 80 mg injection (KeNALog 40) 80 mg, Injection - FOR ORTHO USE ONLY, ONCE, 1 dose, Starting on 08/08/23 at 1204, Until 08/08/23 at 1204 Given 08/08/2023 12:04 PM EDT 80 mg Shoulder, Right Goals (unrecognized section and content) Goals may be documented in a n alternate section FOR RECORDS PERTAINING TO PATIENTS WHO ARE OR HAVE BEEN ENROLLED IN A CHEMICAL DEPENDENCY/SUBSTANCEABUSE PROGRAM, SOME INFORMATION MAY BE OMITTED. This clinical summary was aggregated from multiple sources. Caution should be exercised in using it in the provision of clinical care. This summary normalizes information from multiple sources, and as a consequence, information in this document may materially change the coding, format and clinical context of patient data. In addition, data may be omitted in some cases. CLINICAL DECISIONS SHOULD BE BASED ON THE PRIMARY CLINICAL RECORDS. [employer] [facility]. provides no warranty or guarantee of the accuracy or completeness of information in this document.
--- NOTE | 2024-06-21 06:23 | ED.FEMALEGU1 ---
HPI - Female Genitourinary General Chief complaint: Urogenital-Female Stated complaint: LOWER ABDOMINAL PAIN Time Seen by Provider: 06/21/24 06:07 Source: patient Source comment: c/o urinary frequency, dysuria, hesitancy, and feeling like she's unable to fully empty the bladder Mode of arrival: walk-in History of Present Illness HPI Narrative: 29-year-old female presents to the emergency department for low abdominal pain. Its intermittent and she has had it for a few days. She does not seem to have any dysuria or hematuria. She has had a hysterectomy but has her ovaries. No trauma or fever or back pain. Related Data Home Medications ?Medication ?Instructions ?Recorded ?Confirmed No Known Home Medications 06/21/24 06/21/24 Allergies Allergy/AdvReac Type Severity Reaction Status Date / Time No Known Drug Allergies Allergy Verified 06/21/24 06:19 Review of Systems ROS Narrative A ten point review of systems is negative except as noted above. [facility] Surgical History (Updated 04/03/24 @ 10:38 by Chaz Abad) History of shoulder surgery ?Z98.890 - Other specified postprocedural states (ICD-10) Hx of cholecystectomy ?Z90.49 - Acquired absence of other specified parts of digestive tract (ICD-10) Hx of hysterectomy ?Z90.710 - Acquired absence of both cervix and uterus (ICD-10) Social History Little interest or pleasure in doing things: not at all Feeling down, depressed, or hopeless: not at all Exam Narrative Exam Narrative: Nurses note and vital signs reviewed and patient is not hypoxic. General: The patient appears well and in no apparent distress. Patient is resting comfortably on cart. Skin: Warm, dry, no pallor noted. There is no rash noted. Head: Normocephalic, atraumatic Eye: Normal conjunctiva, no drainage Ears, Nose, Mouth, and Throat: oral mucosa is moist. Nares patent. Cardiovascular: Regular Rate and Rhythm Respiratory: Patient is in no distress, no accessory muscle use, lungs are clear to auscultation, no wheezing, rales or rhonchi Back: non-tender GI: Soft and nondistended. No perceptible tenderness on palpation Musculoskeletal: The patient has no evidence of calf tenderness, no pitting edema, symmetrical pulses noted bilaterally Neurological: A&O, normal speech Psychiatric: Cooperative Constitutional Vital Signs, click to edit/add: Last Vital Signs Temp 98.6 F 06/21/24 06:09 Pulse 64 06/21/24 06:09 Resp 16 06/21/24 06:09 BP 125/68 06/21/24 06:09 Pulse Ox 97 06/21/24 06:09 O2 Del Method Room Air 06/21/24 06:09 Course Vital Signs Vital signs: Vital Signs Temperature 98.6 F 06/21/24 06:09 Pulse Rate 64 06/21/24 06:09 Respiratory Rate 16 06/21/24 06:09 Blood Pressure 125/68 06/21/24 06:09 Pulse Oximetry 97 06/21/24 06:09 Oxygen Delivery Method Room Air 06/21/24 06:09 Temperature 98.6 F 06/21/24 06:09 Pulse Rate 64 06/21/24 06:09 Respiratory Rate 16 06/21/24 06:09 Blood Pressure 125/68 06/21/24 06:09 Pulse Oximetry 97 06/21/24 06:09 Oxygen Delivery Method Room Air 06/21/24 06:09 MDM - Female Genitourinary MDM Narrative Medical decision making narrative: Urinalysis is pending and the patient is signed out to Dr. Kunz at change of shift. Differential Diagnosis Differential diagnosis: Likely urinary tract infection, ovarian cyst and cystitis Discharge Plan Discharge Patient Disposition: Still a Patient
[2024-06-21 07:00] LABS: Bilirubin Urine NEGATIVE (NEGATIVE); Blood Urine NEGATIVE (NEGATIVE); Clarity Urine CLEAR (CLEAR); Color Urine YELLOW (YELLOW); Glucose Urine UA NEGATIVE (NEGATIVE); Ketones Urine TRACE mg/dL (NEGATIVE); Leukocyte Esterase Urine NEGATIVE (NEGATIVE); Nitrite Urine NEGATIVE (NEGATIVE); Protein Urine NEGATIVE (NEG/TRACE); Specific Gravity Urine >=1.030 (1.005-1.025); Urobilinogen Urine 0.2 EU/dL (0.2-1.0); pH Urine 5.5 (5.0-9.0)
[2024-06-21 07:13] LABS: Bacteria Urine TRACE #/HPF (NONE SEEN); Cast Seen? NONE SEEN #/LPF (NONE SEEN); Crystals Seen? None Seen #/HPF (None Seen); Mucus Urine SMALL (NONE SEEN); RBC Urine 0-2 #/HPF (0-2); Squamous Epithelial Cell Urine RARE #/LPF (NONE/RARE); WBC Urine 0-2 #/HPF (NONE SEEN)
== END 2024-06-21 07:38 | disposition home or self-care (01) ==
PROVIDERS: Emergency Medicine; Emergency Provider Emergency Medicine; PCP Family Medicine
DX: N39.0 Urinary tract infection, site not specified (principal); R30.0 Dysuria; Z90.710 Acquired absence of both cervix and uterus; Z90.49 Acquired absence of other specified parts of digestive tract
CPT/HCPCS: 81001; 99283

== ENCOUNTER 2024-09-19 00:38 | Emergency (ER) | payer OTHER, SELFPAY ==
[2024-09-19 00:42] VITALS: BP 134/77; PULSE 61; TEMP 36.6; O2SAT 95; BMI 29.1
--- NOTE | 2024-09-19 00:55 | ED.SKABFB1 ---
HPI - Skin/Abscess/Foreign Bdy General Chief complaint: Skin/Abscess/Foreign Body Stated complaint: RASH, UPPER LEFT EXTREMITY Time Seen by Provider: 09/19/24 00:54 Source: patient Mode of arrival: walk-in Limitations: no limitations History of Present Illness HPI narrative: rash past 10 years on her extremities. Treated by her PCP with steroid creams. States prednisone helps clear it up but it does return. no pain. No swelling or drainage. No shortness of breath Related Data Previous Rx's ?Medication ?Instructions ?Recorded ciprofloxacin HCl 500 mg tablet 500 mg PO BID #10 tabs 06/21/24 (Cipro) phenazopyridine 200 mg tablet 200 mg PO Q8H PRN pain #9 tabs 06/21/24 (Pyridium) Allergies Allergy/AdvReac Type Severity Reaction Status Date / Time No Known Drug Allergies Allergy Verified 09/19/24 00:48 Review of Systems ROS Status of ROS 10 or more systems reviewed and unremarkable except as noted in history and below [facility] Surgical History (Updated 04/03/24 @ 10:38 by Chaz Abad) History of shoulder surgery ?Z98.890 - Other specified postprocedural states (ICD-10) Hx of cholecystectomy ?Z90.49 - Acquired absence of other specified parts of digestive tract (ICD-10) Hx of hysterectomy ?Z90.710 - Acquired absence of both cervix and uterus (ICD-10) Social History Little interest or pleasure in doing things: not at all Feeling down, depressed, or hopeless: not at all Exam Constitutional Vital Signs, click to edit/add: Last Vital Signs Temp 97.9 F 09/19/24 00:42 Pulse 61 09/19/24 00:42 Resp 16 09/19/24 00:42 BP 134/77 09/19/24 00:42 Pulse Ox 95 09/19/24 00:42 O2 Del Method Room Air 09/19/24 00:42 Common normals: no apparent distress, average body habitus, oriented x3, no limitations, healthy appearing, alert and well nourished [facility] Common normals: normocephalic Respiratory Common normals: normal respiratory effort, no retractions, no use of accessory muscles and clear to auscultation bilaterally Cardio Common normals: regular rate, regular rhythm, S1 normal heart sound and S2 normal heart sound Extremity Other: dry erythematous rash on her extremities. large patch left dorsum of her hand. no drainage or swelling Neuro Common normals: oriented x3, CN's II-XII intact bilaterally and moves all extremities Psych Appearance: grossly normal Course Vital Signs Vital signs: Vital Signs Temperature 97.9 F 09/19/24 00:42 Pulse Rate 61 09/19/24 00:42 Respiratory Rate 16 09/19/24 00:42 Blood Pressure 134/77 09/19/24 00:42 Pulse Oximetry 95 09/19/24 00:42 Oxygen Delivery Method Room Air 09/19/24 00:42 Temperature 97.9 F 09/19/24 00:42 Pulse Rate 61 09/19/24 00:42 Respiratory Rate 16 09/19/24 00:42 Blood Pressure 134/77 09/19/24 00:42 Pulse Oximetry 95 09/19/24 00:42 Oxygen Delivery Method Room Air 09/19/24 00:42 MDM - Skin/Abscess/Foreign Bdy MDM Narrative Medical decision making narrative: patient has rash presents and treated on and off for 10years. has the appearance of a psoriatic rash. Presents tonight stating steroid cream is not helping and that prednisone has help in the past. Advised to continue steroid cream and provided with a prescription for prednisone. Advised to follow up with her doctor Discharge Plan Discharge Chief Complaint: Skin/Abscess/Foreign Body Clinical Impression: Psoriasiform dermatitis Patient Disposition: Home, Self-Care Prescriptions / Home Meds: No Action ciprofloxacin HCl [Cipro] 500 mg tablet 500 mg PO BID Qty: 10 0RF phenazopyridine [Pyridium] 200 mg tablet 200 mg PO Q8H PRN (Reason: pain) Qty: 9 0RF Print Language: Serbian Instructions: Dermatitis (ED) Referrals: Bryce Lemos DO [Primary Care Provider] - 1 week Discharge Date/Time: 09/19/24 01:29
[2024-09-19] MEDS: PREDNISONE 20 MG TABLET 40 MG PO (01:19)
== END 2024-09-19 01:29 | disposition home or self-care (01) ==
PROVIDERS: Emergency Provider Internal Medicine; PCP Family Medicine
DX: L30.8 Other specified dermatitis (principal); Z90.710 Acquired absence of both cervix and uterus; Z90.49 Acquired absence of other specified parts of digestive tract
CPT/HCPCS: 99283; J7512